=== PATIENT | female | born 1955 | race American Indian/Alaskan Native ===

== ENCOUNTER 2016-08-28 06:46 | Inpatient (IN) | payer MEDICARE, OTHER ==
[2016-08-28] MEDS ORDERED: Sodium Chloride 0.9% 2,000 ML IV STA (07:25)
--- NOTE | 2016-08-28 07:27 | ED PDOC ---
Arrival/HPI - General Chief Complaint: Weakness/Neurological Deficit Time Seen by Provider: 08/28/16 07:08 Historian: Patient - History of Present Illness Narrative History of Present Illness (Text): 08/28/16 07:23 61 year old female with a past medical history that includes diabetes, hypertension, and CVA presents to the emergency department with altered mental status. Patient is alert and oriented to person to place but not to time. Currently no family members are at bedside. Patient is unable to provide further history. Past Medical History - Provider Review Nursing Documentation Reviewed: Yes - Infectious Disease Hx of Infectious Diseases: None - Cardiac Hx Hypertension: Yes - Neurological HX Cerebrovascular Accident: Yes Hx Migraine: Yes - Endocrine/Metabolic Hx Diabetes Mellitus Type 2: Yes - Hematological/Oncological Hx Blood Disorders: No - Integumentary Hx Dermatological Disorder: No - Musculoskeletal/Rheumatological Hx Arthritis: Yes - Gastrointestinal Hx Gastrointestinal Disorders: No - Genitourinary/Gynecological Hx Genitourinary Disorders: No - Psychiatric Hx Psychophysiologic Disorder: Yes Hx Substance Use: No Other/Comment: PREVOUSLY ON STELAZINE - Surgical History Hx Cholecystectomy: Yes Hx Eye Surgery: Yes Hx Hysterectomy: Yes Hx Orthopedic Surgery: Yes (NECK, L LEG) - Anesthesia Hx Anesthesia: Yes Family/Social History - Physician Review Nursing Documentation Reviewed: Yes Family/Social History: Unknown Family HX Smoking Status: Never Smoked Hx Alcohol Use: No Hx Substance Use: No Allergies/Home Meds Allergies/Adverse Reactions: Allergies aspirin Allergy (Verified 09/30/15 18:49) SWELLING diphenhydramine HCl [From Benadryl] Allergy (Verified 09/30/15 18:49) DIZZINESS NSAIDS (Non-Steroidal Anti-Inflamma Allergy (Verified 09/30/15 18:50) SWELLING trifluoperazine Allergy (Verified 09/30/15 18:50) DIZZINESS Home Medications: Home Meds Medication Instructions Recorded Confirmed Amitriptyline [Elavil] 25 mg PO HS 03/27/15 09/30/15 Carvedilol [Coreg] 25 mg PO BID 03/27/15 09/30/15 Clopidogrel [Plavix] 75 mg PO DAILY 03/27/15 09/30/15 Gabapentin [Gabapentin] 100 mg PO TID 03/27/15 09/30/15 Losartan [Cozaar] 50 mg PO DAILY 03/27/15 09/30/15 Topiramate [Topamax] 150 mg PO HS 03/27/15 09/30/15 Venlafaxine Hydrochloride 75 mg PO TID 03/27/15 09/30/15 [Venlafaxine HCl Xr] Review of Systems - Review of Systems Systems not reviewed;Unavailable: Altered Mental Status Physical Exam Vital Signs Reviewed: Yes Vital Signs Temp Pulse Resp BP Pulse Ox 08/28/16 07:38 102 H 16 131/61 100 08/28/16 06:53 98.9 F 102 H 16 109/77 99 Temperature: Afebrile Blood Pressure: Normal Pulse: Tachycardic Respiratory Rate: Normal Appearance: Positive for: Well-Appearing, Non-Toxic, Comfortable Pain Distress: None Mental Status: Positive for: other (Alert and oroiented x 2) Finger Stick Blood Glucose: 500 - Systems Exam Head: Present: Atraumatic, Normocephalic Pupils: Present: PERRL Extroacular Muscles: Present: EOMI Conjunctiva: Present: Normal Mouth: Present: Dry Neck: Present: Normal Range of Motion Respiratory/Chest: Present: Clear to Auscultation, Good Air Exchange. No: Respiratory Distress, Accessory Muscle Use Cardiovascular: Present: Regular Rate and Rhythm, Normal S1, S2. No: Murmurs Abdomen: Present: Normal Bowel Sounds. No: Tenderness, Distention, Peritoneal Signs Back: Present: Normal Inspection Upper Extremity: Present: Normal Inspection. No: Cyanosis, Edema Lower Extremity: Present: Normal Inspection, Other (following commands and moving all extremities). No: Edema Neurological: Present: GCS=15, CN II-XII Intact, Speech Normal Skin: Present: Warm, Dry, Normal Color. No: Rashes Psychiatric: Present: Alert, Other (Oriented x 1 (person)) Medical Decision Making ED Course and Treatment: Impression: 61 year old female with a past medical history that includes diabetes, hypertension, and CVA presents to the emergency department with altered mental status. Hyperglycemic on arrival. Concerning for dka and IV immediately started. Differential Diagnosis include but are not limited to: DKA vs CVA vs sepsis Plan: -- CT Head, Chest X-ray, EKG ---IVF -- Labs -- Reassess and disposition Prior Visits: Notes and results from previous visits were reviewed. Patient has a history of diabetes, hypertension, and CVA. As per previous note, patient's baseline mental status appears to be alert and oriented x 3. Patient's PMD in [address] Socrates Padilla. Progress Notes: 08/28/16 08:14 Labs resulted and show hyperglycemia and acidosis of 7.07 and gap:25 consistent with DKA. 2L IVF already ordered and additional ordered as well as insulin drip. Spoke to Dr. Matos who accepted patient in ICU and agrees with current mgmt and fluid and insulin. Lactate likely evaluated secondary to DKA. Patient is afebrile with only SIRS criteria mild tachycardia which is likely secondary to DKA. Blood and ucx sent. Spoke to PMD Dr. Crowell who reports that patient has hx of schizophrenia and bipolar. No known history of CHF but will continue to monitor respiratory status due to large fluid requirements. 08/28/16 08:26 CT head shows chronic ischemic changes. Cxray negative. EKG shows NSR at 100bpm with no ST elevation. Dr. Matos evaluated in ED and patient to be transferred to ICU under Dr. Padilla. - Critical Care Critical Care Minutes: 30 minutes Critical Care Time: Excluding Proc Time - Lab Interpretations Lab Results: 08/28/16 07:04 08/28/16 07:04 Lab Results 08/28/16 07:04: WBC 10.5 D, RBC 4.04, Hgb 11.9 L, Hct 35.4 L, MCV 87.6, MCH 29.5, MCHC 33.6, RDW 13.2, Plt Count 249, MPV 9.8, Gran % 80.9 H, Lymph % (Auto ) 14.4 L, [place] % (Auto) 4.3, Eos % (Auto) 0.3 L, Baso % (Auto) 0.1, Gran # 8.46 H, Lymph # 1.5, [place] # 0.5, Eos # 0.0, Baso # 0.01, pO2 61 H, VBG pH 7.07 L*, VBG pCO2 39.0 L, VBG HCO3 11.3 L, VBG Total CO2 12.5 L, VBG O2 Sat (Calc) 89.0 H , VBG Base Excess -18.2 L, VBG Potassium 6.2 H*, Glucose > 750 H*, Lactate 2.7 H , FiO2 21.0, Sodium 127.0 L, Potassium 6.1 H* D, Chloride 91.0 L, Carbon Dioxide 13 L, Anion Gap 31 H, BUN 39 H, Creatinine 1.8 H, Est GFR ( Amer ) 34, Est GFR (Non-Af Amer) 28, Random Glucose 797 H* D, Calcium 9.4, Phosphorus 6.8 H, Magnesium 2.4 H, Total Bilirubin 0.8, AST 32, ALT 11, Alkaline Phosphatase 170 H, Total Creatine Kinase 84, Troponin I < 0.01, Total Protein 8.3, Albumin 4.3, Globulin 4.0, Albumin/Globulin Ratio 1.1, Lipase 44, Venous Blood Potassium 6.2 H*, Alcohol, Quantitative < 10 - RAD Interpretation Radiology Orders: 08/28/16 07:23 HEAD W/O CONTRAST [CT] Stat CHEST PORTABLE [RAD] Stat - Medication Orders Current Medication Orders: Heparin Sodium (Porcine) (Heparin) 5,000 units SC Q12H LELIA PRN Reason: Protocol Sodium Chloride (Sodium Chloride 0.9%) 2,000 mls @ 999 mls/hr IV .Q2H1M STA Stop: 08/28/16 09:25 Last Admin: 08/28/16 07:40 Dose: 999 MLS/HR eMAR Start Stop Document 08/28/16 07:40 OCS (Rec: 08/28/16 07:59 OCS [id number]) Intravenous Solution Start Date 08/28/16 Start Time 07:40 Sodium Chloride (Sodium Chloride 0.9%) 1,000 mls @ 999 mls/hr IV .Q1H1M STA Stop: 08/28/16 09:24 Last Admin: 08/28/16 08:30 Dose: 999 MLS/HR eMAR Start Stop Document 08/28/16 08:30 OCS (Rec: 08/28/16 09:02 OCS [id number]) Intravenous Solution Start Date 08/28/16 Start Time 08:30 Insulin Human Regular 100 (units/ Sodium Chloride) 100 mls @ 6 mls/hr IV .[id number] PRN; Protocol; 6 UNITS/HR PRN Reason: TITRATE PER PROTOCOL Sodium Chloride (Sodium Chloride 0.9%) 1,000 mls @ 200 mls/hr IV .Q5H LELIA Pantoprazole Sodium (Protonix Inj) 40 mg IVP DAILY LELIA Discontinued Medications Insulin Human Regular 100 (units/ Sodium Chloride) 100 mls @ 6 mls/hr IV .[id number] PRN; 6 UNITS/HR PRN Reason: TITRATE PER PROTOCOL - Scribe Statement The provider has reviewed the documentation as recorded by the Denis Tripp Provider Scribe Attestation: All medical record entries made by the Scribe were at my direction and personally dictated by me. I have reviewed the chart and agree that the record accurately reflects my personal performance of the history, physical exam, medical decision making, and the department course for this patient. I have also personally directed, reviewed, and agree with the discharge instructions and disposition. Disposition/Present on Arrival - Present on Arrival Any Indicators Present on Arrival: No History of DVT/PE: No History of Uncontrolled Diabetes: No Urinary Catheter: No History of Decub. Ulcer: No History Surgical Site Infection Following: None - Disposition Have Diagnosis and Disposition been Completed?: Yes Diagnosis: DKA (diabetic ketoacidoses) Disposition: HOSPITALIZED Disposition Time: 08:21 Patient Plan: Admission Patient Problems: Current Active Problems Problem Status Diagnosed DKA (diabetic ketoacidoses) Acute Condition: CRITICAL
[2016-08-28 08:01] LABS: ADD MANUAL DIFF? NO
[2016-08-28 08:06] LABS: VENOUS BLOOD GAS BASE EXCESS -18.2 mmol/L (0.0-2.0)
[2016-08-28 08:08] LABS: VENOUS BLOOD PH 7.07 (7.32-7.43)
[2016-08-28 08:09] LABS: BASO # 0.01 K/mm3 (0.0-2.0); BASO % 0.1 % (0.0-3.0); EOS % 0.3 % (1.5-5.0); GRAN # 8.46 (1.4-6.5); GRAN % 80.9 % (50.0-68.0); HEMATOCRIT 35.4 % (36.0-48.0); LYMPH # 1.5 (1.2-3.4); LYMPH % 14.4 % (22.0-35.0); MEAN CELL VOLUME 87.6 fL (80.0-105.0); MEAN CORPUSCULAR HEMOGLOBIN 29.5 pg (25.0-35.0); MEAN CORPUSCULAR HGB CONC 33.6 g/dl (31.0-37.0); MEAN PLATELET VOLUME 9.8 fl (7.0-11.0); MONO # 0.5 (0.1-0.6); MONO % 4.3 % (1.0-6.0); PLATELET COUNT 249 10^3/uL (120.0-450.0); RED CELL DISTRIBUTION WIDTH 13.2 % (11.5-14.5); WHITE BLOOD COUNT 10.5 10^3/ul (4.5-11.0)
[2016-08-28] MEDS ORDERED: Insulin Regular 100 UNITS in Sodium Chloride 0.9% 99 ML IV PRN ×3 (08:12→14:28)
--- NOTE | 2016-08-28 08:19 | CT ---
PROCEDURE: CT HEAD WITHOUT CONTRAST. HISTORY: altered COMPARISON: None available. TECHNIQUE: Axial computed tomography images were obtained through the head/brain without intravenous contrast. Radiation dose: Total exam DLP = 688.20 mGy-cm. FINDINGS: HEMORRHAGE: No intracranial hemorrhage. BRAIN: No mass effect or edema. Mild periventricular white matter lucency consistent with microvascular white matter ischemic change. No significant atrophy. . No evidence of acute infarct. VENTRICLES: Unremarkable. No hydrocephalus. CALVARIUM: Unremarkable. PARANASAL SINUSES: Mild chronic ethmoid and maxillary sinusitis. MASTOID AIR CELLS: Unremarkable as visualized. No inflammatory changes. OTHER FINDINGS: None. IMPRESSION: No intracranial mass, hemorrhage or evidence of acute infarct. Periventricular microvascular white matter ischemic change. Chronic ethmoid and sphenoid sinusitis.
[2016-08-28] MEDS ORDERED: Sodium Chloride 0.9% 1,000 ML IV STA (08:24)
[2016-08-28 08:25] LABS: ALB/GLOB RATIO 1.1 (1.1-1.8); ALKALINE PHOSPHATASE 170 U/L (38-133); ALT/SGPT 11 U/L (7-56); AST/SGOT 32 U/L (15-39); BILIRUBIN,TOTAL 0.8 mg/dL (0.2-1.3); BLOOD UREA NITROGEN 39 mg/dL (7-21); CALCIUM 9.4 mg/dL (8.4-10.5); CARBON DIOXIDE 13 mmol/L (21-33); CHLORIDE 89 mmol/L (98-107); GFR AFRICAN-AMERICAN 34; LIPASE 44 U/L (23-300); MAGNESIUM 2.4 mg/dL (1.7-2.2); PHOSPHOROUS 6.8 mg/dL (2.5-4.5); SODIUM 127 mmol/L (132-148); TOTAL PROTEIN 8.3 g/dL (5.8-8.3)
[2016-08-28 08:33] LABS: TROPONIN I < 0.01 ng/mL
[2016-08-28 08:35] LABS: GLUCOSE,RANDOM 797 mg/dL (70-110)
[2016-08-28 08:36] LABS: POTASSIUM 6.1 mmol/L (3.6-5.0)
--- NOTE | 2016-08-28 08:50 | CP.CCUPN ---
CCU Subjective - Physician Review Events Since Last Encounter (Free Text): 08/28/16 08:46 61yo female pt presented to ED with altered mental status. Pt seen and examined at bedside. Pt is alert but lethargic and oriented x1. Pt unable to provide any HPI or ROS. Pt is hemodynamically stable and saturating well on NC in NAD. PMH: CVA, DM, HTN, bipolar CCU Objective - Vital Signs / Intake & Output Vital Signs (Last 4 hours): Vital Signs Temp Pulse Resp BP Pulse Ox 08/28/16 07:38 102 H 16 131/61 100 08/28/16 06:53 98.9 F 102 H 16 109/77 99 Intake and Output (Last 8hrs): Intake & Output 08/27/16 08/28/16 08/28/16 22:59 06:59 14:59 Weight 200 lb - Physical Exam Head: Positive for: Atraumatic, Normocephalic Conjunctiva: Positive for: Normal Mouth: Positive for: Moist Mucous Membranes Respiratory/Chest: Positive for: Clear to Auscultation, Good Air Exchange. Negative for: Respiratory Distress, Accessory Muscle Use Cardiovascular: Positive for: Regular Rate and Rhythm, Normal S1, S2. Negative for: Murmurs Abdomen: Positive for: Normal Bowel Sounds. Negative for: Tenderness, Distention, Peritoneal Signs Upper Extremity: Positive for: Normal Inspection. Negative for: Cyanosis, Edema Lower Extremity: Positive for: Normal Inspection. Negative for: Edema Neurological: Positive for: GCS=15, CN II-XII Intact, Speech Normal Skin: Positive for: Warm, Dry, Normal Color. Negative for: Rashes Psychiatric: Positive for: Alert, Normal Concentration, Lethargic. Negative for : Oriented x 3, Normal Insight - Medications Active Medications: Active Medications Generic Name Dose Route Start Last Admin Trade Name Freq PRN Reason Stop Dose Admin Sodium Chloride 2,000 mls @ 999 mls/hr 08/28/16 07:25 08/28/16 07:40 Sodium Chloride 0.9% IV 08/28/16 09:25 999 mls/hr .Q2H1M STA Administration Insulin Human Regular 100 100 mls @ 6 mls/hr 08/28/16 08:12 units/ Sodium Chloride IV .[id number] PRN TITRATE PER PROTOCOL 6 UNITS/HR Sodium Chloride 1,000 mls @ 999 mls/hr 08/28/16 08:24 Sodium Chloride 0.9% IV 08/28/16 09:24 .Q1H1M STA - Patient Studies Lab Studies: Lab Studies 08/28/16 Range/Units 07:04 WBC 10.5 D (4.5-11.0) 10^3/ul RBC 4.04 (3.5-6.1) 10^6/uL Hgb 11.9 L (12.0-16.0) gm/dL Hct 35.4 L (36.0-48.0) % MCV 87.6 (80.0-105.0) fL MCH 29.5 (25.0-35.0) pg MCHC 33.6 (31.0-37.0) g/dl RDW 13.2 (11.5-14.5) % Plt Count 249 (120.0-450.0) 10^3/uL MPV 9.8 (7.0-11.0) fl Gran % 80.9 H (50.0-68.0) % Lymph % (Auto) 14.4 L (22.0-35.0) % [place] % (Auto) 4.3 (1.0-6.0) % Eos % (Auto) 0.3 L (1.5-5.0) % Baso % (Auto) 0.1 (0.0-3.0) % Gran # 8.46 H (1.4-6.5) Lymph # 1.5 (1.2-3.4) [place] # 0.5 (0.1-0.6) Eos # 0.0 (0.0-0.7) Baso # 0.01 (0.0-2.0) K/mm3 pO2 61 H (30-55) mm/Hg VBG pH 7.07 L* (7.32-7.43) VBG pCO2 39.0 L (40-60) VBG HCO3 11.3 L (21-28) mmol/l VBG Total CO2 12.5 L (22-28) mmol.L VBG O2 Sat (Calc) 89.0 H (40-65) % VBG Base Excess -18.2 L (0.0-2.0) mmol/L VBG Potassium 6.2 H* (3.6-5.2) mmol/L Glucose > 750 H* (65-105) mg/dl Lactate 2.7 H (0.7-2.1) mmol/L FiO2 21.0 % Sodium 127.0 L (132-148) mmol/L Potassium 6.1 H* D (3.6-5.0) mmol/L Chloride 91.0 L (98-107) mmol/L Carbon Dioxide 13 L (21-33) mmol/L Anion Gap 31 H (10-20) BUN 39 H (7-21) mg/dL Creatinine 1.8 H (0.5-1.4) mg/dL Est GFR ( Amer) 34 Est GFR (Non-Af Amer) 28 Random Glucose 797 H* D (70-110) mg/dL Calcium 9.4 (8.4-10.5) mg/dL Phosphorus 6.8 H (2.5-4.5) mg/dL Magnesium 2.4 H (1.7-2.2) mg/dL Total Bilirubin 0.8 (0.2-1.3) mg/dL AST 32 (15-39) U/L ALT 11 (7-56) U/L Alkaline Phosphatase 170 H (38-133) U/L Total Creatine Kinase 84 (35-230) U/L Troponin I < 0.01 ng/mL Total Protein 8.3 (5.8-8.3) g/dL Albumin 4.3 (3.0-4.8) g/dL Globulin 4.0 gm/dL Albumin/Globulin Ratio 1.1 (1.1-1.8) Lipase 44 (23-300) U/L Venous Blood Potassium 6.2 H* (3.6-5.2) mmol/L Alcohol, Quantitative < 10 (0-10) mg/dL Laboratory Results - last 24 hr 08/28/16 07:04 WBC 10.5 D RBC 4.04 Hgb 11.9 L Hct 35.4 L MCV 87.6 MCH 29.5 MCHC 33.6 RDW 13.2 Plt Count 249 MPV 9.8 Gran % 80.9 H Lymph % (Auto) 14.4 L [place] % (Auto) 4.3 Eos % (Auto) 0.3 L Baso % (Auto) 0.1 Gran # 8.46 H Lymph # 1.5 [place] # 0.5 Eos # 0.0 Baso # 0.01 pO2 61 H VBG pH 7.07 L* VBG pCO2 39.0 L VBG HCO3 11.3 L VBG Total CO2 12.5 L VBG O2 Sat (Calc) 89.0 H VBG Base Excess -18.2 L VBG Potassium 6.2 H* Sodium 127 L Chloride 89 L Glucose > 750 H* Lactate 2.7 H FiO2 21.0 Potassium 6.1 H* D Carbon Dioxide 13 L Anion Gap 31 H BUN 39 H Creatinine 1.8 H Est GFR ( Amer) 34 Est GFR (Non-Af Amer) 28 Random Glucose 797 H* D Calcium 9.4 Phosphorus 6.8 H Magnesium 2.4 H Total Bilirubin 0.8 AST 32 ALT 11 Alkaline Phosphatase 170 H Total Creatine Kinase 84 Troponin I < 0.01 Total Protein 8.3 Albumin 4.3 Globulin 4.0 Albumin/Globulin Ratio 1.1 Lipase 44 Venous Blood Potassium 6.2 H* Alcohol, Quantitative < 10 EKG/Cardiology Studies: Cardiology / EKG Studies 08/28/16 07:34 EKG [ELECTROCARDIOGRAM] Stat Comment: Reason For Exam: AMS Fingerstick Blood Sugar Results: 500 Review of Systems - Review of Systems Systems not reviewed;Unavailable: Acuity of Condition Critical Care Progress Note - Ventilator Checklist Head of Bed 30 Degrees: Yes PUD Prophalyxis: Yes DVT Prophylaxis: Yes Assessment/Plan - Assessment and Plan (Free Text) Plan: DKA \ YOGESH \ Bipolar -hemodynamic monitoring to maintain MAP>65; currently stable -f\u ECho to assess baseline LV function -o2 supplementation to maintain Spo2>90 Pao2>60; currently comfortable on NC -CXR reviewed , and shows no visible opacification -f\u Bun\Cr and U\o; continue IVF with NS -f\u renal US -f\u U\A and urine culture -continue Insulin drip as per protocol and BGM q1h -monitor CH7 for Anion gap q4hrs -monitor and e-lites -NPO diet and aspiration precautions -f\u HbA1c -consider endocrine eval -psych team eval once pt is clinically improved -DVT prophylaxis DW ED team CCM eval time 40min
[2016-08-28] MEDS ORDERED: Sodium Chloride 0.9% 1,000 ML IV SCH (09:00)
--- NOTE | 2016-08-28 09:20 | RAD ---
HISTORY: altered COMPARISON: 03/27/2015 FINDINGS: LUNGS: No active pulmonary disease. PLEURA: No significant pleural effusion identified, no pneumothorax apparent. CARDIOVASCULAR: Normal. OSSEOUS STRUCTURES: No significant abnormalities. VISUALIZED UPPER ABDOMEN: Normal. OTHER FINDINGS: None. IMPRESSION: No active disease.
[2016-08-28 09:26] LABS: URINE BILIRUBIN NEGATIVE (NEGATIVE); URINE BLOOD TRACE-LYSED (NEGATIVE); URINE GLUCOSE (UA) >=1000 mg/dL (NEGATIVE); URINE KETONE 40 mg/dL (NEGATIVE); URINE LEUKOCYTE ESTERASE NEGATIVE Leu/uL (NEGATIVE); URINE PROTEIN NEGATIVE mg/dL (<30 mg/dL); URINE UROBILINOGEN 0.2 E.U./dL (<1 E.U./dL)
[2016-08-28 09:28] LABS: URINE APPEARANCE CLEAR (CLEAR); URINE COLOR YELLOW (YELLOW)
[2016-08-28 09:42] LABS: URINE BACTERIA NEG (NEG); URINE EPITHELIAL CELLS 0 - 2 /hpf (0-5); URINE RBC NEGATIVE /hpf (0-2); URINE WBC NEGATIVE /hpf (0-6)
--- NOTE | 2016-08-28 09:56 | US ---
PROCEDURE: Ultrasound of the Kidneys HISTORY: YOGESH COMPARISON: None available. TECHNIQUE: Sonogram of the kidneys. Limited examination. Patient unable to cooperate with respiratory instructions. FINDINGS: RIGHT KIDNEY: Measures: 9.9 cm. Normal in size, contour and echogenicity. No stone, solid mass lesion or hydronephrosis visualized. LEFT KIDNEY: Measures: 9.8 cm. Normal in size, contour and echogenicity. No stone, solid mass lesion or hydronephrosis visualized. OTHER FINDINGS: None. IMPRESSION: Unremarkable renal sonogram.
--- NOTE | 2016-08-28 10:31 | CARD ---
APPROVED REPORT EKG Measurement Heart [id number] <Conclusion> Normal sinus rhythm ST elevation V 1 - 3, new Artifact present Suggest clinical correlation.
--- NOTE | 2016-08-28 10:37 | HP ---
HISTORY OF PRESENT ILLNESS: The patient is a 61-year-old female with a history of type 1 diabetes wh o presents to the Emergency Room in diabetic ketoacidosis. 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 PAST SURGICAL HISTORY: Includes back surgery in 1983, status post lumbar laminectomy and fusion. Th e patient has a history of cholecystectomy and total abdominal hysterectomy and bilateral salpingo-oo phorectomy. ALLERGIES: INCLUDE ASPIRIN, BENADRYL, STELAZINE AND CORTISONE. CURRENT MEDICATIONS: Include Neurontin 100 mg 3 times daily, losartan 50 mg daily, Coreg 25 mg twice daily, venlafaxine ER 75 mg 3 times daily, Plavix 75 mg daily and Topamax 100 mg q. a.m. and 150 mg q. p.m. as well as Lantus 45 units q. daily, and Humalog with meals. SOCIAL HISTORY: The patient has no history of tobacco, alcohol or drug use. She has a history of po ssible bipolar disorder in the past. She is being followed as an outpatient by endocrinology, Dr. Ankit polk. PHYSICAL EXAMINATION: GENERAL: The patient is a well-developed female, somewhat confused, in no acute distress. VITAL SIGNS: Blood pressure 131/61, pulse 102, temperature 98.9, respiratory rate 16. HEENT: Head is normocephalic, atraumatic. Pupils equal, round, reactive, extraocular movements inta ct. NECK: Supple with no nuchal rigidity. LUNGS: Clear. HEART: Regular rate and rhythm. ABDOMEN: Soft, nontender. Bowel sounds are normoactive. EXTREMITIES: Without cyanosis, clubbing, or edema. NEUROLOGIC: The patient is awake and confused without focal sensory or motor deficits. SKIN: Warm and dry. LABORATORY DATA: WBC is 10.5, hemoglobin 11.9, hematocrit 35.4. Sodium 127, potassium 6.1, chloride 89, CO2 13, BUN 39, creatinine 1.8, glucose 797. Arterial blood gas shows a pH of 7.07, pCO2 of 39, pO2 of 61, bicarb 11.3, oxygen saturation 89%. Renal ultrasound was performed which was negative fo r obstruction. CT scan of the head shows no bleeds or infarcts, is positive for chronic sinusitis. IMPRESSION: 1. Diabetic ketoacidosis. 2. Chronic obstructive pulmonary disease. 3. Hypertension. PLAN: The patient is admitted to the intensive care unit. She is currently receiving IV insulin as well as IV fluids. Prognosis is guarded. Socrates Padilla JD, MD cc: [id number] TT: 08/28/2016 10:36:20 tn
[2016-08-28 10:38] LABS: CALCIUM 8.9 mg/dL (8.4-10.5); POTASSIUM 5.5 mmol/L (3.6-5.0); VENOUS BLOOD PH 7.06 (7.32-7.43)
[2016-08-28 11:25] VITALS: BMI 39.1
[2016-08-28 14:16] LABS: CALCIUM 8.7 mg/dL (8.4-10.5); POTASSIUM 4.5 mmol/L (3.6-5.0)
--- NOTE | 2016-08-28 15:23 | CON ---
DATE: 08/28/2016 CCU 128, room 2. This is a 61-year-old female with known history of type 2 diabetes on oral hypoglycemic therapy, who presents here with generalized body weakness and altered mental status, and is now being referred for diabetic evaluation and management. PAST MEDICAL HISTORY: As mentioned above, history of type 2 diabetes on some kind of oral hypoglycem ic therapy. The exact name is not known at this time. History of hypertension and dyslipidemia, his tory of bipolar disorder on psychotropic medications. FAMILY HISTORY: Positive for hypertension and diabetes. SOCIAL HISTORY: The patient has supportive family. No known substance use. REVIEW OF SYSTEMS: Not possible at this time, but as per the family, has had increasing bouts of gen eralized body weakness, hypersomnolence, and lethargy over the last few days prior to admission. She also had episodic bouts of dizziness and light-headedness, worse on the day of admission. No chest pains, or palpitations, or PNDs. Her oral intake has been variable and suboptimal, with nausea, dysp epsia, and episodic vomiting episodes. Also was noted to have increasing polyuria, nocturia, and even urinary incontinence on the day of admission. PHYSICAL EXAMINATION: This is an obese female in no apparent distress with a blood pressure of 150/90, pulse of 100 beats p er minute regular, temperature 98, respirations 20. Height is 5 feet 3 inches, weight is 221 pounds. HENT: Head normocephalic. Eyes anicteric with pink conjunctivae. Fundoscopy not possible at this t francine. Ears, nose and throat otherwise normal. NECK: Supple. Thyroid gland is normal size. No carotid bruits or any cervical adenopathy. CARDIOPULMONARY: Some adynamic precordium. S1, S2 is rapid and regular. LUNGS: Clear to auscultation. ABDOMEN: Obese, soft, with positive bowel sounds. EXTREMITIES: No peripheral edema. Pulses are +2 bilaterally. LABORATORIES: Chemistry showed a BUN of 39, sodium 127, potassium 6.1, chloride 89, CO2 is 13, gluco se is 797, and creatinine is 1.8. ASSESSMENT: This is a 61-year-old female with uncontrolled and decompensated type 2 insulin-requirin g diabetes presenting here with diabetic ketoacidosis, and clinical and biochemical evidence of dehyd ration, prerenal azotemia, spurious hyponatremia, and hyperkalemia as noted thereof. PLAN OF MANAGEMENT: As discussed with the staff, will concur with the present medical management of the ongoing insulin drip infusion as part of the intensive insulin therapy as initiated. Will also o btain serial chemistries and supplement accordingly as needed. Should expect at least a CO2 to be ab ove 18 to discontinue the insulin drip infusion. Will continue the vigorous IV hydration with normal saline given to 200 mL per hour as ordered. A hemoglobin A1c will be done to confirm her prior glyc emic control, and baseline thyroid function studies and lipid panel will be ordered. Once she is more awake and responsive, then will initiate diabetic education, and will notify our [facility] educator, Ms. Virginia Isidro, to initiate the aforementioned diabetic education and also to incl ude insulin self-administration techniques. Will also consult our dietitian for nutritional counseli ng and weight loss efforts, especially for healthier food choices as noted. Once she is off the insu bharati drip infusion, then will start her on the basal and bolus insulin drug combination to optimize he r metabolic control thereof. Will even consider oral hypoglycemic therapy as indicated to lower insu bharati resistance thereof. Will follow and advise accordingly. Polly Carrillo MD cc: [id number] TT: 08/28/2016 15:23:09 Confirmation # [id number] Dictation # [id number] thu
[2016-08-28 16:21] LABS: VENOUS BLOOD GAS BASE EXCESS -12.7 mmol/L (0.0-2.0)
[2016-08-28 16:30] LABS: CALCIUM 8.6 mg/dL (8.4-10.5); POTASSIUM 4.5 mmol/L (3.6-5.0)
[2016-08-28] MEDS: Dextrose 5%/0.45% NS 1,000 ML IV SCH (18:10)
[2016-08-28 20:32] LABS: CALCIUM 8.3 mg/dL (8.4-10.5); POTASSIUM 4.2 mmol/L (3.6-5.0)
[2016-08-28] MEDS ORDERED: Insulin Detemir 100 units/ml Vial (Levemir) SC STA (22:50)
[2016-08-29] MEDS: Dextrose 5%/0.45% NS 1,000 ML IV SCH (02:12)
[2016-08-29] MEDS ORDERED: Insulin Lispro 1 UNITS/0.01 ML SC STA ×2 (03:18→06:09)
[2016-08-29 05:21] LABS: HEMATOCRIT 34.2 % (36.0-48.0); MEAN CELL VOLUME 85.5 fL (80.0-105.0); MEAN CORPUSCULAR HEMOGLOBIN 29.5 pg (25.0-35.0); MEAN CORPUSCULAR HGB CONC 34.5 g/dl (31.0-37.0); MEAN PLATELET VOLUME 9.1 fl (7.0-11.0); RED CELL DISTRIBUTION WIDTH 13.3 % (11.5-14.5); WHITE BLOOD COUNT 11.9 10^3/ul (4.5-11.0)
[2016-08-29 05:43] LABS: ALB/GLOB RATIO 0.9 (1.1-1.8); ALKALINE PHOSPHATASE 128 U/L (38-133); ALT/SGPT 16 U/L (7-56); AST/SGOT 26 U/L (15-39); BILIRUBIN,TOTAL 0.6 mg/dL (0.2-1.3); BLOOD UREA NITROGEN 24 mg/dL (7-21); CALCIUM 8.3 mg/dL (8.4-10.5); CARBON DIOXIDE 21 mmol/L (21-33); CHLORIDE 101 mmol/L (98-107); CHOLESTEROL 150 mg/dL (130-200); GFR AFRICAN-AMERICAN > 60; LIPASE 34 U/L (23-300); MAGNESIUM 2.2 mg/dL (1.7-2.2); PHOSPHOROUS 2.5 mg/dL (2.5-4.5); POTASSIUM 4.7 mmol/L (3.6-5.0); SODIUM 134 mmol/L (132-148); TOTAL PROTEIN 7.3 g/dL (5.8-8.3)
[2016-08-29 05:59] LABS: GLUCOSE,RANDOM 407 mg/dL (70-110)
[2016-08-29 06:57] LABS: T4 6.6 ug/dL (5.5-11.0)
[2016-08-29 07:00] LABS: BLOOD UREA NITROGEN 23 mg/dL (7-21); CALCIUM 8.3 mg/dL (8.4-10.5); CARBON DIOXIDE 18 mmol/L (21-33); CHLORIDE 104 mmol/L (98-107); GFR AFRICAN-AMERICAN > 60; POTASSIUM 4.8 mmol/L (3.6-5.0); SODIUM 137 mmol/L (132-148)
[2016-08-29 07:07] LABS: GLUCOSE,RANDOM 431 mg/dL (70-110)
[2016-08-29 07:11] LABS: THYROID STIMULATING HORMONE 0.99 mIU/mL (0.46-4.68)
[2016-08-29] MEDS ORDERED: Insulin Regular 100 UNITS in Sodium Chloride 0.9% 99 ML IV PRN (07:14)
[2016-08-29] MEDS ORDERED: Dextrose 5%/0.45% NS 1,000 ML IV SCH (07:30)
--- NOTE | 2016-08-29 09:43 | CARD ---
APPROVED REPORT EXAM: Two-dimensional and M-mode echocardiogram with Doppler and color Doppler. Other Information Quality : FairRhythm : INDICATION LV Function:SystolicDiastolic 2D DIMENSIONS Left Atrium (2D)3.0 (1.6-4.0cm)IVSd1.3 (0.7-1.1cm) LVDd2.9 (3.9-5.9cm)PWd1.3 (0.7-1.1cm) LVDs1.8 (2.5-4.0cm)FS (%) 39.2 % LVEF (%)71.0 (>50%) M-Mode DIMENSIONS Aortic Root2.70 (2.2-3.7cm)Aortic Cusp Exc.1.20 (1.5-2.0cm) Aortic Valve AoV Peak Ypfvdsoh962.0cm/Lisset Peak GR.13mmHg Mitral Valve MV E Iafqicvo75.5cm/sMV A Aenxjooh464.0cm/sE/A ratio0.6 TDI E/Lateral E'0.0E/Medial E'0.0 Tricuspid Valve TR Peak [id number]/sRAP [id number] Peak Gr.18mmHg [id number] LEFT VENTRICLE The left ventricle is normal size. There is mild concentric left ventricular hypertrophy. The left ventricular function is normal. The left ventricular ejection fraction is within the normal range. There is normal LV segmental wall motion. RIGHT VENTRICLE The right ventricle is normal size. ATRIA The left atrium is mildly dilated. The right atrium size is normal. AORTIC VALVE The aortic valve is mildly calcified. MITRAL VALVE The mitral valve is moderately thickened but opens well. Mitral annular calcification is moderate. TRICUSPID VALVE The tricuspid valve is not well visualized. There is trace to mild tricuspid regurgitation. PULMONIC VALVE The pulmonic valve is not well visualized. GREAT VESSELS The aortic root is normal in size. PERICARDIAL EFFUSION There is no pericardial effusion. <Conclusion> Limited study. The left ventricle is normal size. There is mild concentric left ventricular hypertrophy. The left ventricular function is normal.
[2016-08-29] MEDS: Insulin Lispro (humaLOG) LOW Coverage SC SCH ×4 (09:46→22:04)
[2016-08-29] MEDS: Insulin Lispro 1 UNITS/0.01 ML SC SCH ×3 (09:47→17:35)
[2016-08-29 11:31] LABS: BLOOD UREA NITROGEN 19 mg/dL (7-21); CALCIUM 8.3 mg/dL (8.4-10.5); CARBON DIOXIDE 23 mmol/L (21-33); CHLORIDE 104 mmol/L (95-110); GFR AFRICAN-AMERICAN > 60; SODIUM 136 mmol/L (132-148)
[2016-08-29 11:39] LABS: GLUCOSE,RANDOM 356 mg/dL (70-110)
--- NOTE | 2016-08-29 11:44 | PN ---
DATE: 08/29/2016 SUBJECTIVE: The patient is lying in bed in no acute distress. There is no chest pain, no shortness of breath. OBJECTIVE: VITAL SIGNS: Blood pressure 130/80, temperature 99.5, pulse 89, respiratory rate 17, temperature 99. 5. LUNGS: Clear. HEART: Regular rate and rhythm. ABDOMEN: Soft, nontender, bowel sounds are normoactive. EXTREMITIES: Without cyanosis, clubbing, or edema. NEUROLOGIC: The patient is awake and alert without focal sensory or motor deficits. SKIN: Warm and dry. LABORATORY DATA: WBCs 11.9, hemoglobin 11.8, hematocrit 34.2. Sodium 137, potassium 4.8, chloride 1 04, CO2 18, BUN 23, creatinine 1.0. Glucose 431. Urine and blood cultures and sensitivity are negat cesar after 24 hours. IMPRESSION: 1. Diabetic ketoacidosis/dehydration. 2. Chronic obstructive pulmonary disease. 3. Hypertension. PLAN: Continue monitoring in the intensive care unit, IV insulin and vigorous IV hydration. Endocri nology consult (Dr. Carrillo) appreciated. Social work for discharge planning. Socrates Padilla JD, MD cc: [id number] TT: 08/29/2016 11:44:07 Confirmation # [id number] Dictation # [id number]
--- NOTE | 2016-08-29 11:45 | CP.CCUPN ---
<January Carty - Last Filed: 08/29/16 15:41> CCU Subjective - Physician Review Events Since Last Encounter (Free Text): 08/29/16 15:41 Patient seen and examined bedside. Patient AAO x2 (self and place, not time). Still slightly lethargic but easily arousable. Denies CP, SOB, abd pain, n/v, fevers, chills. Critical Care Time Spent (in minutes): 30 CCU Objective - Vital Signs / Intake & Output Intake and Output (Last 8hrs): Intake & Output 08/28/16 08/29/16 08/29/16 22:59 06:59 14:59 Intake Total 1500 611 Output Total 1750 770 Balance -250 -159 Intake: IV 1500 611 Right Hand 1500 611 Output: Urine 1750 750 Urethral (Higgins) 1750 750 Emesis 20 Other: Voiding Method Indwelling Catheter - Physical Exam Head: Positive for: Atraumatic, Normocephalic Pupils: Positive for: PERRL Extroacular Muscles: Positive for: EOMI Conjunctiva: Positive for: Normal Mouth: Positive for: Dry Neck: Positive for: Normal Range of Motion Respiratory/Chest: Positive for: Clear to Auscultation, Good Air Exchange. Negative for: Respiratory Distress, Accessory Muscle Use Cardiovascular: Positive for: Regular Rate and Rhythm, Normal S1, S2. Negative for: Murmurs Abdomen: Positive for: Normal Bowel Sounds. Negative for: Tenderness, Distention, Peritoneal Signs Back: Positive for: Normal Inspection Upper Extremity: Positive for: Normal Inspection. Negative for: Cyanosis, Edema Lower Extremity: Positive for: Normal Inspection, Other (following commands and moving all extremities). Negative for: Edema Neurological: Positive for: GCS=15, CN II-XII Intact, Speech Normal Skin: Positive for: Warm, Dry, Normal Color. Negative for: Rashes Psychiatric: Positive for: Alert, Other (Oriented x 1 (person)) - Medications Active Medications: Active Medications Generic Name Dose Route Start Last Admin Trade Name Freq PRN Reason Stop Dose Admin Heparin Sodium (Porcine) 5,000 units 08/28/16 09:00 08/29/16 11:00 Heparin SC 5,000 units Q12H LELIA Administration Protocol Insulin Human Regular 100 100 mls @ 0 mls/hr 08/29/16 07:14 units/ Sodium Chloride IV .Q0M PRN TITRATE PER MD ORDER Protocol Per Protocol Dextrose/Sodium Chloride 1,000 mls @ 100 mls/hr 08/29/16 07:30 Dextrose 5%/0.45% Ns 1000 Ml IV .Q10H LELIA Insulin Detemir 20 unit 08/29/16 22:00 Levemir SC HS LELIA Insulin Human Lispro 0 units 08/29/16 07:30 08/29/16 09:46 Humalog Low SC Not Given ACHS [facility] Protocol Insulin Human Lispro 8 units 08/29/16 07:30 08/29/16 09:47 Humalog SC 8 units AC LELIA Administration Ondansetron HCl 4 mg 08/28/16 19:28 Zofran Inj IVP Q6H PRN Nausea/Vomiting Pantoprazole Sodium 40 mg 08/28/16 10:00 08/29/16 11:00 Protonix Inj IVP 40 mg DAILY LELIA Administration - Patient Studies Lab Studies: Microbiology Studies 08/28/16 08:54 Blood Culture - Preliminary Blood NO GROWTH AFTER 24 HOURS 08/28/16 08:31 Blood Culture - Preliminary Blood NO GROWTH AFTER 24 HOURS 08/28/16 09:00 Urine Culture - Final Urine No Growth (<1,000 CFU/ML) Lab Studies 08/29/16 08/29/16 08/29/16 Range/Units 11:00 06:36 05:00 WBC 11.9 H (4.5-11.0) 10^3/ul RBC 4.00 (3.5-6.1) 10^6/uL Hgb 11.8 L (12.0-16.0) gm/dL Hct 34.2 L (36.0-48.0) % MCV 85.5 (80.0-105.0) fL MCH 29.5 (25.0-35.0) pg MCHC 34.5 (31.0-37.0) g/dl RDW 13.3 (11.5-14.5) % Plt Count 208 (120.0-450.0) 10^3/uL MPV 9.1 (7.0-11.0) fl pO2 (30-55) mm/Hg VBG pH (7.32-7.43) VBG pCO2 (40-60) VBG HCO3 (21-28) mmol/l VBG Total CO2 (22-28) mmol.L VBG O2 Sat (Calc) (40-65) % VBG Base Excess (0.0-2.0) mmol/L VBG Potassium (3.6-5.2) mmol/L Glucose (65-105) mg/dl Lactate (0.7-2.1) mmol/L FiO2 % Sodium 136 137 134 (132-148) mmol/L Potassium 4.0 4.8 4.7 (3.6-5.0) mmol/L Chloride 104 104 101 (95-110) mmol/L Carbon Dioxide 23 18 L 21 (21-33) mmol/L Anion Gap 13 20 17 (10-20) BUN 19 23 H 24 H (7-21) mg/dL Creatinine 0.9 1.0 1.0 (0.5-1.4) mg/dL Est GFR ( Amer) > 60 > 60 > 60 Est GFR (Non-Af Amer) > 60 56 56 POC Glucose (mg/dL) (65-110) mg/dL Random Glucose 356 H* 431 H* 407 H* D (70-110) mg/dL Hemoglobin A1c 12.3 H (4.2-6.5) % Calcium 8.3 L 8.3 L 8.3 L (8.4-10.5) mg/dL Phosphorus 2.5 (2.5-4.5) mg/dL Magnesium 2.2 (1.7-2.2) mg/dL Total Bilirubin 0.6 (0.2-1.3) mg/dL AST 26 (15-39) U/L ALT 16 (7-56) U/L Alkaline Phosphatase 128 (38-133) U/L Total Protein 7.3 (5.8-8.3) g/dL Albumin 3.5 (3.0-4.8) g/dL Globulin 3.7 gm/dL Albumin/Globulin Ratio 0.9 L (1.1-1.8) Triglycerides 104 (35-160) mg/dL Cholesterol 150 (130-200) mg/dL LDL Cholesterol Direct 54 (0-129) mg/dL HDL Cholesterol 59 (29-60) mg/dL Lipase 34 (23-300) U/L Thyroxine (T4) 6.6 (5.5-11.0) ug/dL TSH 3rd Generation 0.99 (0.46-4.68) mIU/mL Venous Blood Potassium (3.6-5.2) mmol/L 08/29/16 08/28/16 08/28/16 Range/Units 03:07 23:02 21:59 WBC (4.5-11.0) 10^3/ul RBC (3.5-6.1) 10^6/uL Hgb (12.0-16.0) gm/dL Hct (36.0-48.0) % MCV (80.0-105.0) fL MCH (25.0-35.0) pg MCHC (31.0-37.0) g/dl RDW (11.5-14.5) % Plt Count (120.0-450.0) 10^3/uL MPV (7.0-11.0) fl pO2 (30-55) mm/Hg VBG pH (7.32-7.43) VBG pCO2 (40-60) VBG HCO3 (21-28) mmol/l VBG Total CO2 (22-28) mmol.L VBG O2 Sat (Calc) (40-65) % VBG Base Excess (0.0-2.0) mmol/L VBG Potassium (3.6-5.2) mmol/L Glucose (65-105) mg/dl Lactate (0.7-2.1) mmol/L FiO2 % Sodium (132-148) mmol/L Potassium (3.6-5.0) mmol/L Chloride (95-110) mmol/L Carbon Dioxide (21-33) mmol/L Anion Gap (10-20) BUN (7-21) mg/dL Creatinine (0.5-1.4) mg/dL Est GFR ( Amer) Est GFR (Non-Af Amer) POC Glucose (mg/dL) 323 H 166 H 172 H (65-110) mg/dL Random Glucose (70-110) mg/dL Hemoglobin A1c (4.2-6.5) % Calcium (8.4-10.5) mg/dL Phosphorus (2.5-4.5) mg/dL Magnesium (1.7-2.2) mg/dL Total Bilirubin (0.2-1.3) mg/dL AST (15-39) U/L ALT (7-56) U/L Alkaline Phosphatase (38-133) U/L Total Protein (5.8-8.3) g/dL Albumin (3.0-4.8) g/dL Globulin gm/dL Albumin/Globulin Ratio (1.1-1.8) Triglycerides (35-160) mg/dL Cholesterol (130-200) mg/dL LDL Cholesterol Direct (0-129) mg/dL HDL Cholesterol (29-60) mg/dL Lipase (23-300) U/L Thyroxine (T4) (5.5-11.0) ug/dL TSH 3rd Generation (0.46-4.68) mIU/mL Venous Blood Potassium (3.6-5.2) mmol/L 08/28/16 08/28/16 08/28/16 Range/Units 21:06 20:04 20:00 WBC (4.5-11.0) 10^3/ul RBC (3.5-6.1) 10^6/uL Hgb (12.0-16.0) gm/dL Hct (36.0-48.0) % MCV (80.0-105.0) fL MCH (25.0-35.0) pg MCHC (31.0-37.0) g/dl RDW (11.5-14.5) % Plt Count (120.0-450.0) 10^3/uL MPV (7.0-11.0) fl pO2 (30-55) mm/Hg VBG pH (7.32-7.43) VBG pCO2 (40-60) VBG HCO3 (21-28) mmol/l VBG Total CO2 (22-28) mmol.L VBG O2 Sat (Calc) (40-65) % VBG Base Excess (0.0-2.0) mmol/L VBG Potassium (3.6-5.2) mmol/L Glucose (65-105) mg/dl Lactate (0.7-2.1) mmol/L FiO2 % Sodium 137 (132-148) mmol/L Potassium 4.2 (3.6-5.0) mmol/L Chloride 104 (95-110) mmol/L Carbon Dioxide 22 (21-33) mmol/L Anion Gap 15 (10-20) BUN 31 H (7-21) mg/dL Creatinine 1.2 (0.5-1.4) mg/dL Est GFR ( Amer) 55 Est GFR (Non-Af Amer) 45 POC Glucose (mg/dL) 193 H 208 H (65-110) mg/dL Random Glucose 189 H (70-110) mg/dL Hemoglobin A1c (4.2-6.5) % Calcium 8.3 L (8.4-10.5) mg/dL Phosphorus (2.5-4.5) mg/dL Magnesium (1.7-2.2) mg/dL Total Bilirubin (0.2-1.3) mg/dL AST (15-39) U/L ALT (7-56) U/L Alkaline Phosphatase (38-133) U/L Total Protein (5.8-8.3) g/dL Albumin (3.0-4.8) g/dL Globulin gm/dL Albumin/Globulin Ratio (1.1-1.8) Triglycerides (35-160) mg/dL Cholesterol (130-200) mg/dL LDL Cholesterol Direct (0-129) mg/dL HDL Cholesterol (29-60) mg/dL Lipase (23-300) U/L Thyroxine (T4) (5.5-11.0) ug/dL TSH 3rd Generation (0.46-4.68) mIU/mL Venous Blood Potassium (3.6-5.2) mmol/L 08/28/16 08/28/16 08/28/16 Range/Units 19:08 18:02 17:09 WBC (4.5-11.0) 10^3/ul RBC (3.5-6.1) 10^6/uL Hgb (12.0-16.0) gm/dL Hct (36.0-48.0) % MCV (80.0-105.0) fL MCH (25.0-35.0) pg MCHC (31.0-37.0) g/dl RDW (11.5-14.5) % Plt Count (120.0-450.0) 10^3/uL MPV (7.0-11.0) fl pO2 (30-55) mm/Hg VBG pH (7.32-7.43) VBG pCO2 (40-60) VBG HCO3 (21-28) mmol/l VBG Total CO2 (22-28) mmol.L VBG O2 Sat (Calc) (40-65) % VBG Base Excess (0.0-2.0) mmol/L VBG Potassium (3.6-5.2) mmol/L Glucose (65-105) mg/dl Lactate (0.7-2.1) mmol/L FiO2 % Sodium (132-148) mmol/L Potassium (3.6-5.0) mmol/L Chloride (95-110) mmol/L Carbon Dioxide (21-33) mmol/L Anion Gap (10-20) BUN (7-21) mg/dL Creatinine (0.5-1.4) mg/dL Est GFR ( Amer) Est GFR (Non-Af Amer) POC Glucose (mg/dL) 196 H 205 H 233 H (65-110) mg/dL Random Glucose (70-110) mg/dL Hemoglobin A1c (4.2-6.5) % Calcium (8.4-10.5) mg/dL Phosphorus (2.5-4.5) mg/dL Magnesium (1.7-2.2) mg/dL Total Bilirubin (0.2-1.3) mg/dL AST (15-39) U/L ALT (7-56) U/L Alkaline Phosphatase (38-133) U/L Total Protein (5.8-8.3) g/dL Albumin (3.0-4.8) g/dL Globulin gm/dL Albumin/Globulin Ratio (1.1-1.8) Triglycerides (35-160) mg/dL Cholesterol (130-200) mg/dL LDL Cholesterol Direct (0-129) mg/dL HDL Cholesterol (29-60) mg/dL Lipase (23-300) U/L Thyroxine (T4) (5.5-11.0) ug/dL TSH 3rd Generation (0.46-4.68) mIU/mL Venous Blood Potassium (3.6-5.2) mmol/L 08/28/16 08/28/16 08/28/16 Range/Units 16:17 16:14 15:07 WBC (4.5-11.0) 10^3/ul RBC (3.5-6.1) 10^6/uL Hgb (12.0-16.0) gm/dL Hct (36.0-48.0) % MCV (80.0-105.0) fL MCH (25.0-35.0) pg MCHC (31.0-37.0) g/dl RDW (11.5-14.5) % Plt Count (120.0-450.0) 10^3/uL MPV (7.0-11.0) fl pO2 40 (30-55) mm/Hg VBG pH 7.20 L (7.32-7.43) VBG pCO2 37.0 L (40-60) VBG HCO3 14.5 L (21-28) mmol/l VBG Total CO2 15.6 L (22-28) mmol.L VBG O2 Sat (Calc) 74.8 H (40-65) % VBG Base Excess -12.7 L (0.0-2.0) mmol/L VBG Potassium 4.4 (3.6-5.2) mmol/L Glucose 261 H (65-105) mg/dl Lactate 1.6 (0.7-2.1) mmol/L FiO2 21.0 % Sodium 138.0 (132-148) mmol/L Potassium 4.5 (3.6-5.0) mmol/L Chloride 109.0 H (95-110) mmol/L Carbon Dioxide 16 L (21-33) mmol/L Anion Gap 22 H (10-20) BUN 36 H (7-21) mg/dL Creatinine 1.4 (0.5-1.4) mg/dL Est GFR ( Amer) 46 Est GFR (Non-Af Amer) 38 POC Glucose (mg/dL) 259 H 385 H (65-110) mg/dL Random Glucose 253 H (70-110) mg/dL Hemoglobin A1c (4.2-6.5) % Calcium 8.6 (8.4-10.5) mg/dL Phosphorus (2.5-4.5) mg/dL Magnesium (1.7-2.2) mg/dL Total Bilirubin (0.2-1.3) mg/dL AST (15-39) U/L ALT (7-56) U/L Alkaline Phosphatase (38-133) U/L Total Protein (5.8-8.3) g/dL Albumin (3.0-4.8) g/dL Globulin gm/dL Albumin/Globulin Ratio (1.1-1.8) Triglycerides (35-160) mg/dL Cholesterol (130-200) mg/dL LDL Cholesterol Direct (0-129) mg/dL HDL Cholesterol (29-60) mg/dL Lipase (23-300) U/L Thyroxine (T4) (5.5-11.0) ug/dL TSH 3rd Generation (0.46-4.68) mIU/mL Venous Blood Potassium 4.4 (3.6-5.2) mmol/L 08/28/16 08/28/16 08/28/16 Range/Units 14:15 14:00 12:54 WBC (4.5-11.0) 10^3/ul RBC (3.5-6.1) 10^6/uL Hgb (12.0-16.0) gm/dL Hct (36.0-48.0) % MCV (80.0-105.0) fL MCH (25.0-35.0) pg MCHC (31.0-37.0) g/dl RDW (11.5-14.5) % Plt Count (120.0-450.0) 10^3/uL MPV (7.0-11.0) fl pO2 (30-55) mm/Hg VBG pH (7.32-7.43) VBG pCO2 (40-60) VBG HCO3 (21-28) mmol/l VBG Total CO2 (22-28) mmol.L VBG O2 Sat (Calc) (40-65) % VBG Base Excess (0.0-2.0) mmol/L VBG Potassium (3.6-5.2) mmol/L Glucose (65-105) mg/dl Lactate (0.7-2.1) mmol/L FiO2 % Sodium 137 (132-148) mmol/L Potassium 4.5 (3.6-5.0) mmol/L Chloride 101 (95-110) mmol/L Carbon Dioxide 14 L (21-33) mmol/L Anion Gap 27 H (10-20) BUN 36 H (7-21) mg/dL Creatinine 1.6 H (0.5-1.4) mg/dL Est GFR ( Amer) 39 Est GFR (Non-Af Amer) 33 POC Glucose (mg/dL) 390 H 459 H* (65-110) mg/dL Random Glucose 418 H* D (70-110) mg/dL Hemoglobin A1c (4.2-6.5) % Calcium 8.7 (8.4-10.5) mg/dL Phosphorus (2.5-4.5) mg/dL Magnesium (1.7-2.2) mg/dL Total Bilirubin (0.2-1.3) mg/dL AST (15-39) U/L ALT (7-56) U/L Alkaline Phosphatase (38-133) U/L Total Protein (5.8-8.3) g/dL Albumin (3.0-4.8) g/dL Globulin gm/dL Albumin/Globulin Ratio (1.1-1.8) Triglycerides (35-160) mg/dL Cholesterol (130-200) mg/dL LDL Cholesterol Direct (0-129) mg/dL HDL Cholesterol (29-60) mg/dL Lipase (23-300) U/L Thyroxine (T4) (5.5-11.0) ug/dL TSH 3rd Generation (0.46-4.68) mIU/mL Venous Blood Potassium (3.6-5.2) mmol/L 08/28/16 08/28/16 08/28/16 Range/Units 12:00 11:07 10:33 WBC (4.5-11.0) 10^3/ul RBC (3.5-6.1) 10^6/uL Hgb (12.0-16.0) gm/dL Hct (36.0-48.0) % MCV (80.0-105.0) fL MCH (25.0-35.0) pg MCHC (31.0-37.0) g/dl RDW (11.5-14.5) % Plt Count (120.0-450.0) 10^3/uL MPV (7.0-11.0) fl pO2 (30-55) mm/Hg VBG pH (7.32-7.43) VBG pCO2 (40-60) VBG HCO3 (21-28) mmol/l VBG Total CO2 (22-28) mmol.L VBG O2 Sat (Calc) (40-65) % VBG Base Excess (0.0-2.0) mmol/L VBG Potassium (3.6-5.2) mmol/L Glucose (65-105) mg/dl Lactate (0.7-2.1) mmol/L FiO2 % Sodium (132-148) mmol/L Potassium (3.6-5.0) mmol/L Chloride (95-110) mmol/L Carbon Dioxide (21-33) mmol/L Anion Gap (10-20) BUN (7-21) mg/dL Creatinine (0.5-1.4) mg/dL Est GFR ( Amer) Est GFR (Non-Af Amer) POC Glucose (mg/dL) 400 H* 412 H* 468 H* (65-110) mg/dL Random Glucose (70-110) mg/dL Hemoglobin A1c (4.2-6.5) % Calcium (8.4-10.5) mg/dL Phosphorus (2.5-4.5) mg/dL Magnesium (1.7-2.2) mg/dL Total Bilirubin (0.2-1.3) mg/dL AST (15-39) U/L ALT (7-56) U/L Alkaline Phosphatase (38-133) U/L Total Protein (5.8-8.3) g/dL Albumin (3.0-4.8) g/dL Globulin gm/dL Albumin/Globulin Ratio (1.1-1.8) Triglycerides (35-160) mg/dL Cholesterol (130-200) mg/dL LDL Cholesterol Direct (0-129) mg/dL HDL Cholesterol (29-60) mg/dL Lipase (23-300) U/L Thyroxine (T4) (5.5-11.0) ug/dL TSH 3rd Generation (0.46-4.68) mIU/mL Venous Blood Potassium (3.6-5.2) mmol/L 08/28/16 08/28/16 Range/Units 10:16 09:13 WBC (4.5-11.0) 10^3/ul RBC (3.5-6.1) 10^6/uL Hgb (12.0-16.0) gm/dL Hct (36.0-48.0) % MCV (80.0-105.0) fL MCH (25.0-35.0) pg MCHC (31.0-37.0) g/dl RDW (11.5-14.5) % Plt Count (120.0-450.0) 10^3/uL MPV (7.0-11.0) fl pO2 (30-55) mm/Hg VBG pH (7.32-7.43) VBG pCO2 (40-60) VBG HCO3 (21-28) mmol/l VBG Total CO2 (22-28) mmol.L VBG O2 Sat (Calc) (40-65) % VBG Base Excess (0.0-2.0) mmol/L VBG Potassium (3.6-5.2) mmol/L Glucose (65-105) mg/dl Lactate (0.7-2.1) mmol/L FiO2 % Sodium (132-148) mmol/L Potassium (3.6-5.0) mmol/L Chloride (95-110) mmol/L Carbon Dioxide (21-33) mmol/L Anion Gap (10-20) BUN (7-21) mg/dL Creatinine (0.5-1.4) mg/dL Est GFR ( Amer) Est GFR (Non-Af Amer) POC Glucose (mg/dL) 471 H* (65-110) mg/dL Random Glucose (70-110) mg/dL Hemoglobin A1c 12.0 H (4.2-6.5) % Calcium (8.4-10.5) mg/dL Phosphorus (2.5-4.5) mg/dL Magnesium (1.7-2.2) mg/dL Total Bilirubin (0.2-1.3) mg/dL AST (15-39) U/L ALT (7-56) U/L Alkaline Phosphatase (38-133) U/L Total Protein (5.8-8.3) g/dL Albumin (3.0-4.8) g/dL Globulin gm/dL Albumin/Globulin Ratio (1.1-1.8) Triglycerides (35-160) mg/dL Cholesterol (130-200) mg/dL LDL Cholesterol Direct (0-129) mg/dL HDL Cholesterol (29-60) mg/dL Lipase (23-300) U/L Thyroxine (T4) (5.5-11.0) ug/dL TSH 3rd Generation (0.46-4.68) mIU/mL Venous Blood Potassium (3.6-5.2) mmol/L Laboratory Results - last 24 hr 08/28/16 08/28/16 08/28/16 09:13 10:16 10:33 WBC RBC Hgb Hct MCV MCH MCHC RDW Plt Count MPV pO2 VBG pH VBG pCO2 VBG HCO3 VBG Total CO2 VBG O2 Sat (Calc) VBG Base Excess VBG Potassium Glucose Lactate FiO2 Sodium Potassium Chloride Carbon Dioxide Anion Gap BUN Creatinine Est GFR ( Amer) Est GFR (Non-Af Amer) POC Glucose (mg/dL) 471 H* 468 H* Random Glucose Hemoglobin A1c 12.0 H Calcium Phosphorus Magnesium Total Bilirubin AST ALT Alkaline Phosphatase Total Protein Albumin Globulin Albumin/Globulin Ratio Triglycerides Cholesterol LDL Cholesterol Direct HDL Cholesterol Lipase Thyroxine (T4) TSH 3rd Generation Venous Blood Potassium 08/28/16 08/28/16 08/28/16 11:07 12:00 12:54 WBC RBC Hgb Hct MCV MCH MCHC RDW Plt Count MPV pO2 VBG pH VBG pCO2 VBG HCO3 VBG Total CO2 VBG O2 Sat (Calc) VBG Base Excess VBG Potassium Glucose Lactate FiO2 Sodium Potassium Chloride Carbon Dioxide Anion Gap BUN Creatinine Est GFR ( Amer) Est GFR (Non-Af Amer) POC Glucose (mg/dL) 412 H* 400 H* 459 H* Random Glucose Hemoglobin A1c Calcium Phosphorus Magnesium Total Bilirubin AST ALT Alkaline Phosphatase Total Protein Albumin Globulin Albumin/Globulin Ratio Triglycerides Cholesterol LDL Cholesterol Direct HDL Cholesterol Lipase Thyroxine (T4) TSH 3rd Generation Venous Blood Potassium 08/28/16 08/28/16 08/28/16 14:00 14:15 15:07 WBC RBC Hgb Hct MCV MCH MCHC RDW Plt Count MPV pO2 VBG pH VBG pCO2 VBG HCO3 VBG Total CO2 VBG O2 Sat (Calc) VBG Base Excess VBG Potassium Glucose Lactate FiO2 Sodium 137 Potassium 4.5 Chloride 101 Carbon Dioxide 14 L Anion Gap 27 H BUN 36 H Creatinine 1.6 H Est GFR ( Amer) 39 Est GFR (Non-Af Amer) 33 POC Glucose (mg/dL) 390 H 385 H Random Glucose 418 H* D Hemoglobin A1c Calcium 8.7 Phosphorus Magnesium Total Bilirubin AST ALT Alkaline Phosphatase Total Protein Albumin Globulin Albumin/Globulin Ratio Triglycerides Cholesterol LDL Cholesterol Direct HDL Cholesterol Lipase Thyroxine (T4) TSH 3rd Generation Venous Blood Potassium 08/28/16 08/28/16 08/28/16 16:14 16:17 17:09 WBC RBC Hgb Hct MCV MCH MCHC RDW Plt Count MPV pO2 40 VBG pH 7.20 L VBG pCO2 37.0 L VBG HCO3 14.5 L VBG Total CO2 15.6 L VBG O2 Sat (Calc) 74.8 H VBG Base Excess -12.7 L VBG Potassium 4.4 Glucose 261 H Lactate 1.6 FiO2 21.0 Sodium 137 Potassium 4.5 Chloride 104 Carbon Dioxide 16 L Anion Gap 22 H BUN 36 H Creatinine 1.4 Est GFR ( Amer) 46 Est GFR (Non-Af Amer) 38 POC Glucose (mg/dL) 259 H 233 H Random Glucose 253 H Hemoglobin A1c Calcium 8.6 Phosphorus Magnesium Total Bilirubin AST ALT Alkaline Phosphatase Total Protein Albumin Globulin Albumin/Globulin Ratio Triglycerides Cholesterol LDL Cholesterol Direct HDL Cholesterol Lipase Thyroxine (T4) TSH 3rd Generation Venous Blood Potassium 4.4 08/28/16 08/28/16 08/28/16 18:02 19:08 20:00 WBC RBC Hgb Hct MCV MCH MCHC RDW Plt Count MPV pO2 VBG pH VBG pCO2 VBG HCO3 VBG Total CO2 VBG O2 Sat (Calc) VBG Base Excess VBG Potassium Glucose Lactate FiO2 Sodium 137 Potassium 4.2 Chloride 104 Carbon Dioxide 22 Anion Gap 15 BUN 31 H Creatinine 1.2 Est GFR ( Amer) 55 Est GFR (Non-Af Amer) 45 POC Glucose (mg/dL) 205 H 196 H Random Glucose 189 H Hemoglobin A1c Calcium 8.3 L Phosphorus Magnesium Total Bilirubin AST ALT Alkaline Phosphatase Total Protein Albumin Globulin Albumin/Globulin Ratio Triglycerides Cholesterol LDL Cholesterol Direct HDL Cholesterol Lipase Thyroxine (T4) TSH 3rd Generation Venous Blood Potassium 08/28/16 08/28/16 08/28/16 20:04 21:06 21:59 WBC RBC Hgb Hct MCV MCH MCHC RDW Plt Count MPV pO2 VBG pH VBG pCO2 VBG HCO3 VBG Total CO2 VBG O2 Sat (Calc) VBG Base Excess VBG Potassium Glucose Lactate FiO2 Sodium Potassium Chloride Carbon Dioxide Anion Gap BUN Creatinine Est GFR ( Amer) Est GFR (Non-Af Amer) POC Glucose (mg/dL) 208 H 193 H 172 H Random Glucose Hemoglobin A1c Calcium Phosphorus Magnesium Total Bilirubin AST ALT Alkaline Phosphatase Total Protein Albumin Globulin Albumin/Globulin Ratio Triglycerides Cholesterol LDL Cholesterol Direct HDL Cholesterol Lipase Thyroxine (T4) TSH 3rd Generation Venous Blood Potassium 08/28/16 08/29/16 08/29/16 23:02 03:07 05:00 WBC 11.9 H RBC 4.00 Hgb 11.8 L Hct 34.2 L MCV 85.5 MCH 29.5 MCHC 34.5 RDW 13.3 Plt Count 208 MPV 9.1 pO2 VBG pH VBG pCO2 VBG HCO3 VBG Total CO2 VBG O2 Sat (Calc) VBG Base Excess VBG Potassium Glucose Lactate FiO2 Sodium 134 Potassium 4.7 Chloride 101 Carbon Dioxide 21 Anion Gap 17 BUN 24 H Creatinine 1.0 Est GFR ( Amer) > 60 Est GFR (Non-Af Amer) 56 POC Glucose (mg/dL) 166 H 323 H Random Glucose 407 H* D Hemoglobin A1c 12.3 H Calcium 8.3 L Phosphorus 2.5 Magnesium 2.2 Total Bilirubin 0.6 AST 26 ALT 16 Alkaline Phosphatase 128 Total Protein 7.3 Albumin 3.5 Globulin 3.7 Albumin/Globulin Ratio 0.9 L Triglycerides 104 Cholesterol 150 LDL Cholesterol Direct 54 HDL Cholesterol 59 Lipase 34 Thyroxine (T4) 6.6 TSH 3rd Generation 0.99 Venous Blood Potassium 08/29/16 08/29/16 06:36 11:00 WBC RBC Hgb Hct MCV MCH MCHC RDW Plt Count MPV pO2 VBG pH VBG pCO2 VBG HCO3 VBG Total CO2 VBG O2 Sat (Calc) VBG Base Excess VBG Potassium Glucose Lactate FiO2 Sodium 137 136 Potassium 4.8 4.0 Chloride 104 104 Carbon Dioxide 18 L 23 Anion Gap 20 13 BUN 23 H 19 Creatinine 1.0 0.9 Est GFR ( Amer) > 60 > 60 Est GFR (Non-Af Amer) 56 > 60 POC Glucose (mg/dL) Random Glucose 431 H* 356 H* Hemoglobin A1c Calcium 8.3 L 8.3 L Phosphorus Magnesium Total Bilirubin AST ALT Alkaline Phosphatase Total Protein Albumin Globulin Albumin/Globulin Ratio Triglycerides Cholesterol LDL Cholesterol Direct HDL Cholesterol Lipase Thyroxine (T4) TSH 3rd Generation Venous Blood Potassium Fingerstick Blood Sugar Results: 366 Review of Systems - Constitutional Constitutional: absent: Fever, Chills - EENT Eyes: absent: Blurred Vision, Change in Vision Ears: absent: Dizziness - Cardiovascular Cardiovascular: absent: Chest Pain, Dyspnea - Respiratory Respiratory: absent: Cough, Pain on Inspiration - Gastrointestinal Gastrointestinal: absent: Abdominal Pain, Nausea, Vomiting - Genitourinary Genitourinary: absent: Dysuria - Reproductive: Female Reproductive:Female: Post Menopausal - Menstruation Menstruation: Post Menopausal - Integumentary Integumentary: absent: New Lesions - Neurological Neurological: absent: Dizziness, Headaches - Psychiatric Psychiatric: Depression Critical Care Progress Note - Ventilator Checklist PUD Prophalyxis: Yes DVT Prophylaxis: Yes - Nutrition Nutrition: Nutrition Category Date Time Status Consistent Carbohydrate [DIET] Diets 08/29/16 Breakfast Ordered Assessment/Plan - Assessment and Plan (Free Text) Assessment: 61 yo F w h/o COPD, HTN, DM1m CVA with L hemiparesis, bipolar disorder admitted with DKA Plan: Neuro: AAOx2, NAD. Continue to monitor mental status CV: HD stable Pulm: No acute issues. Saturating well on room air. Continue to monitor GI: GI ppx Renal: YOGESH resolved. Continue IVF for now. Continue to monitor renal function, I &Os Renal US is unremarkable Endo: DKA resolved. Anion gap closed. pH on VBG this AM 7.20. Patient now off insulin drip. On Levemir 30units QHS, Humalog 14units QAC, Lispro Low SSI. 1/ 2NS @ 125cc/hr A1c 12.0 ID: No signs of infection. Afebrile, WBC 11.9. Blood cultures negative at 24 hours. Final urine culture negative Heme: Mild normocytic anemia, no signs of bleeding. Continue to monitor FEN: Significant hyperkalemia at admission resolved Hyponatremia resolved DVT/GI ppx: SQH, Protonix, DM diet Dispo: Transfer to telemetry - Date & Time Date: 08/29/16 Time: 15:49 <Cassandra MCCLELLAN,Emily H - Last Filed: 08/29/16 18:45> CCU Objective - Vital Signs / Intake & Output Intake and Output (Last 8hrs): Intake & Output 08/29/16 08/29/16 08/29/16 06:59 14:59 22:59 Intake Total 611 Output Total 770 Balance -159 Intake: IV 611 Right Hand 611 Output: Urine 750 Urethral (Higgins) 750 Emesis 20 Other: Voiding Method Indwelling Catheter - Medications Active Medications: Active Medications Generic Name Dose Route Start Last Admin Trade Name Freq PRN Reason Stop Dose Admin Heparin Sodium (Porcine) 5,000 units 08/28/16 09:00 08/29/16 11:00 Heparin SC 5,000 units Q12H [facility] Administration Protocol Insulin Human Regular 100 100 mls @ 0 mls/hr 08/29/16 07:14 units/ Sodium Chloride IV .Q0M PRN TITRATE PER MD ORDER Protocol Per Protocol Dextrose/Sodium Chloride 1,000 mls @ 100 mls/hr 08/29/16 07:30 Dextrose 5%/0.45% Ns 1000 Ml IV .Q10H LELIA Sodium Chloride 1,000 mls @ 125 mls/hr 08/29/16 12:30 08/29/16 15:58 Sodium Chloride 0.45% IV 125 mls/hr .Q8H LELIA Administration Insulin Detemir 30 unit 08/29/16 22:00 Levemir SC HS LELIA Insulin Human Lispro 0 units 08/29/16 07:30 08/29/16 18:18 Humalog Low SC Not Given ACHS [facility] Protocol Insulin Human Lispro 14 units 08/29/16 16:30 08/29/16 17:35 Humalog SC 14 units AC LELIA Administration Ondansetron HCl 4 mg 08/28/16 19:28 Zofran Inj IVP Q6H PRN Nausea/Vomiting Pantoprazole Sodium 40 mg 08/28/16 10:00 08/29/16 11:00 Protonix Inj IVP 40 mg DAILY LELIA Administration - Patient Studies Lab Studies: Microbiology Studies 08/28/16 10:50 MRSA Culture (Admit) - Final Nose MRSA NOT DETECTED 08/28/16 08:54 Blood Culture - Preliminary Blood NO GROWTH AFTER 24 HOURS 08/28/16 08:31 Blood Culture - Preliminary Blood NO GROWTH AFTER 24 HOURS 08/28/16 09:00 Urine Culture - Final Urine No Growth (<1,000 CFU/ML) Lab Studies 08/29/16 08/29/16 08/29/16 Range/Units 11:00 06:36 05:00 WBC 11.9 H (4.5-11.0) 10^3/ul RBC 4.00 (3.5-6.1) 10^6/uL Hgb 11.8 L (12.0-16.0) gm/dL Hct 34.2 L (36.0-48.0) % MCV 85.5 (80.0-105.0) fL MCH 29.5 (25.0-35.0) pg MCHC 34.5 (31.0-37.0) g/dl RDW 13.3 (11.5-14.5) % Plt Count 208 (120.0-450.0) 10^3/uL MPV 9.1 (7.0-11.0) fl Sodium 136 137 134 (132-148) mmol/L Potassium 4.0 4.8 4.7 (3.6-5.0) mmol/L Chloride 104 104 101 (95-110) mmol/L Carbon Dioxide 23 18 L 21 (21-33) mmol/L Anion Gap 13 20 17 (10-20) BUN 19 23 H 24 H (7-21) mg/dL Creatinine 0.9 1.0 1.0 (0.5-1.4) mg/dL Est GFR ( Amer) > 60 > 60 > 60 Est GFR (Non-Af Amer) > 60 56 56 POC Glucose (mg/dL) (65-110) mg/dL Random Glucose 356 H* 431 H* 407 H* D (70-110) mg/dL Hemoglobin A1c 12.3 H (4.2-6.5) % Calcium 8.3 L 8.3 L 8.3 L (8.4-10.5) mg/dL Phosphorus 2.5 (2.5-4.5) mg/dL Magnesium 2.2 (1.7-2.2) mg/dL Total Bilirubin 0.6 (0.2-1.3) mg/dL AST 26 (15-39) U/L ALT 16 (7-56) U/L Alkaline Phosphatase 128 (38-133) U/L Total Protein 7.3 (5.8-8.3) g/dL Albumin 3.5 (3.0-4.8) g/dL Globulin 3.7 gm/dL Albumin/Globulin Ratio 0.9 L (1.1-1.8) Triglycerides 104 (35-160) mg/dL Cholesterol 150 (130-200) mg/dL LDL Cholesterol Direct 54 (0-129) mg/dL HDL Cholesterol 59 (29-60) mg/dL Lipase 34 (23-300) U/L Thyroxine (T4) 6.6 (5.5-11.0) ug/dL TSH 3rd Generation 0.99 (0.46-4.68) mIU/mL 08/29/16 08/28/16 08/28/16 Range/Units 03:07 23:02 21:59 WBC (4.5-11.0) 10^3/ul RBC (3.5-6.1) 10^6/uL Hgb (12.0-16.0) gm/dL Hct (36.0-48.0) % MCV (80.0-105.0) fL MCH (25.0-35.0) pg MCHC (31.0-37.0) g/dl RDW (11.5-14.5) % Plt Count (120.0-450.0) 10^3/uL MPV (7.0-11.0) fl Sodium (132-148) mmol/L Potassium (3.6-5.0) mmol/L Chloride (95-110) mmol/L Carbon Dioxide (21-33) mmol/L Anion Gap (10-20) BUN (7-21) mg/dL Creatinine (0.5-1.4) mg/dL Est GFR ( Amer) Est GFR (Non-Af Amer) POC Glucose (mg/dL) 323 H 166 H 172 H (65-110) mg/dL Random Glucose (70-110) mg/dL Hemoglobin A1c (4.2-6.5) % Calcium (8.4-10.5) mg/dL Phosphorus (2.5-4.5) mg/dL Magnesium (1.7-2.2) mg/dL Total Bilirubin (0.2-1.3) mg/dL AST (15-39) U/L ALT (7-56) U/L Alkaline Phosphatase (38-133) U/L Total Protein (5.8-8.3) g/dL Albumin (3.0-4.8) g/dL Globulin gm/dL Albumin/Globulin Ratio (1.1-1.8) Triglycerides (35-160) mg/dL Cholesterol (130-200) mg/dL LDL Cholesterol Direct (0-129) mg/dL HDL Cholesterol (29-60) mg/dL Lipase (23-300) U/L Thyroxine (T4) (5.5-11.0) ug/dL TSH 3rd Generation (0.46-4.68) mIU/mL 08/28/16 08/28/16 08/28/16 Range/Units 21:06 20:04 20:00 WBC (4.5-11.0) 10^3/ul RBC (3.5-6.1) 10^6/uL Hgb (12.0-16.0) gm/dL Hct (36.0-48.0) % MCV (80.0-105.0) fL MCH (25.0-35.0) pg MCHC (31.0-37.0) g/dl RDW (11.5-14.5) % Plt Count (120.0-450.0) 10^3/uL MPV (7.0-11.0) fl Sodium 137 (132-148) mmol/L Potassium 4.2 (3.6-5.0) mmol/L Chloride 104 (95-110) mmol/L Carbon Dioxide 22 (21-33) mmol/L Anion Gap 15 (10-20) BUN 31 H (7-21) mg/dL Creatinine 1.2 (0.5-1.4) mg/dL Est GFR ( Amer) 55 Est GFR (Non-Af Amer) 45 POC Glucose (mg/dL) 193 H 208 H (65-110) mg/dL Random Glucose 189 H (70-110) mg/dL Hemoglobin A1c (4.2-6.5) % Calcium 8.3 L (8.4-10.5) mg/dL Phosphorus (2.5-4.5) mg/dL Magnesium (1.7-2.2) mg/dL Total Bilirubin (0.2-1.3) mg/dL AST (15-39) U/L ALT (7-56) U/L Alkaline Phosphatase (38-133) U/L Total Protein (5.8-8.3) g/dL Albumin (3.0-4.8) g/dL Globulin gm/dL Albumin/Globulin Ratio (1.1-1.8) Triglycerides (35-160) mg/dL Cholesterol (130-200) mg/dL LDL Cholesterol Direct (0-129) mg/dL HDL Cholesterol (29-60) mg/dL Lipase (23-300) U/L Thyroxine (T4) (5.5-11.0) ug/dL TSH 3rd Generation (0.46-4.68) mIU/mL 08/28/16 08/28/16 08/28/16 Range/Units 19:08 18:02 17:09 WBC (4.5-11.0) 10^3/ul RBC (3.5-6.1) 10^6/uL Hgb (12.0-16.0) gm/dL Hct (36.0-48.0) % MCV (80.0-105.0) fL MCH (25.0-35.0) pg MCHC (31.0-37.0) g/dl RDW (11.5-14.5) % Plt Count (120.0-450.0) 10^3/uL MPV (7.0-11.0) fl Sodium (132-148) mmol/L Potassium (3.6-5.0) mmol/L Chloride (95-110) mmol/L Carbon Dioxide (21-33) mmol/L Anion Gap (10-20) BUN (7-21) mg/dL Creatinine (0.5-1.4) mg/dL Est GFR ( Amer) Est GFR (Non-Af Amer) POC Glucose (mg/dL) 196 H 205 H 233 H (65-110) mg/dL Random Glucose (70-110) mg/dL Hemoglobin A1c (4.2-6.5) % Calcium (8.4-10.5) mg/dL Phosphorus (2.5-4.5) mg/dL Magnesium (1.7-2.2) mg/dL Total Bilirubin (0.2-1.3) mg/dL AST (15-39) U/L ALT (7-56) U/L Alkaline Phosphatase (38-133) U/L Total Protein (5.8-8.3) g/dL Albumin (3.0-4.8) g/dL Globulin gm/dL Albumin/Globulin Ratio (1.1-1.8) Triglycerides (35-160) mg/dL Cholesterol (130-200) mg/dL LDL Cholesterol Direct (0-129) mg/dL HDL Cholesterol (29-60) mg/dL Lipase (23-300) U/L Thyroxine (T4) (5.5-11.0) ug/dL TSH 3rd Generation (0.46-4.68) mIU/mL 08/28/16 08/28/16 08/28/16 Range/Units 16:14 15:07 14:15 WBC (4.5-11.0) 10^3/ul RBC (3.5-6.1) 10^6/uL Hgb (12.0-16.0) gm/dL Hct (36.0-48.0) % MCV (80.0-105.0) fL MCH (25.0-35.0) pg MCHC (31.0-37.0) g/dl RDW (11.5-14.5) % Plt Count (120.0-450.0) 10^3/uL MPV (7.0-11.0) fl Sodium (132-148) mmol/L Potassium (3.6-5.0) mmol/L Chloride (95-110) mmol/L Carbon Dioxide (21-33) mmol/L Anion Gap (10-20) BUN (7-21) mg/dL Creatinine (0.5-1.4) mg/dL Est GFR ( Amer) Est GFR (Non-Af Amer) POC Glucose (mg/dL) 259 H 385 H 390 H (65-110) mg/dL Random Glucose (70-110) mg/dL Hemoglobin A1c (4.2-6.5) % Calcium (8.4-10.5) mg/dL Phosphorus (2.5-4.5) mg/dL Magnesium (1.7-2.2) mg/dL Total Bilirubin (0.2-1.3) mg/dL AST (15-39) U/L ALT (7-56) U/L Alkaline Phosphatase (38-133) U/L Total Protein (5.8-8.3) g/dL Albumin (3.0-4.8) g/dL Globulin gm/dL Albumin/Globulin Ratio (1.1-1.8) Triglycerides (35-160) mg/dL Cholesterol (130-200) mg/dL LDL Cholesterol Direct (0-129) mg/dL HDL Cholesterol (29-60) mg/dL Lipase (23-300) U/L Thyroxine (T4) (5.5-11.0) ug/dL TSH 3rd Generation (0.46-4.68) mIU/mL 08/28/16 08/28/16 08/28/16 Range/Units 12:54 12:00 11:07 WBC (4.5-11.0) 10^3/ul RBC (3.5-6.1) 10^6/uL Hgb (12.0-16.0) gm/dL Hct (36.0-48.0) % MCV (80.0-105.0) fL MCH (25.0-35.0) pg MCHC (31.0-37.0) g/dl RDW (11.5-14.5) % Plt Count (120.0-450.0) 10^3/uL MPV (7.0-11.0) fl Sodium (132-148) mmol/L Potassium (3.6-5.0) mmol/L Chloride (95-110) mmol/L Carbon Dioxide (21-33) mmol/L Anion Gap (10-20) BUN (7-21) mg/dL Creatinine (0.5-1.4) mg/dL Est GFR ( Amer) Est GFR (Non-Af Amer) POC Glucose (mg/dL) 459 H* 400 H* 412 H* (65-110) mg/dL Random Glucose (70-110) mg/dL Hemoglobin A1c (4.2-6.5) % Calcium (8.4-10.5) mg/dL Phosphorus (2.5-4.5) mg/dL Magnesium (1.7-2.2) mg/dL Total Bilirubin (0.2-1.3) mg/dL AST (15-39) U/L ALT (7-56) U/L Alkaline Phosphatase (38-133) U/L Total Protein (5.8-8.3) g/dL Albumin (3.0-4.8) g/dL Globulin gm/dL Albumin/Globulin Ratio (1.1-1.8) Triglycerides (35-160) mg/dL Cholesterol (130-200) mg/dL LDL Cholesterol Direct (0-129) mg/dL HDL Cholesterol (29-60) mg/dL Lipase (23-300) U/L Thyroxine (T4) (5.5-11.0) ug/dL TSH 3rd Generation (0.46-4.68) mIU/mL 08/28/16 Range/Units 10:33 WBC (4.5-11.0) 10^3/ul RBC (3.5-6.1) 10^6/uL Hgb (12.0-16.0) gm/dL Hct (36.0-48.0) % MCV (80.0-105.0) fL MCH (25.0-35.0) pg MCHC (31.0-37.0) g/dl RDW (11.5-14.5) % Plt Count (120.0-450.0) 10^3/uL MPV (7.0-11.0) fl Sodium (132-148) mmol/L Potassium (3.6-5.0) mmol/L Chloride (95-110) mmol/L Carbon Dioxide (21-33) mmol/L Anion Gap (10-20) BUN (7-21) mg/dL Creatinine (0.5-1.4) mg/dL Est GFR ( Amer) Est GFR (Non-Af Amer) POC Glucose (mg/dL) 468 H* (65-110) mg/dL Random Glucose (70-110) mg/dL Hemoglobin A1c (4.2-6.5) % Calcium (8.4-10.5) mg/dL Phosphorus (2.5-4.5) mg/dL Magnesium (1.7-2.2) mg/dL Total Bilirubin (0.2-1.3) mg/dL AST (15-39) U/L ALT (7-56) U/L Alkaline Phosphatase (38-133) U/L Total Protein (5.8-8.3) g/dL Albumin (3.0-4.8) g/dL Globulin gm/dL Albumin/Globulin Ratio (1.1-1.8) Triglycerides (35-160) mg/dL Cholesterol (130-200) mg/dL LDL Cholesterol Direct (0-129) mg/dL HDL Cholesterol (29-60) mg/dL Lipase (23-300) U/L Thyroxine (T4) (5.5-11.0) ug/dL TSH 3rd Generation (0.46-4.68) mIU/mL Laboratory Results - last 24 hr 08/28/16 08/28/16 08/28/16 10:33 11:07 12:00 WBC RBC Hgb Hct MCV MCH MCHC RDW Plt Count MPV Sodium Potassium Chloride Carbon Dioxide Anion Gap BUN Creatinine Est GFR ( Amer) Est GFR (Non-Af Amer) POC Glucose (mg/dL) 468 H* 412 H* 400 H* Random Glucose Hemoglobin A1c Calcium Phosphorus Magnesium Total Bilirubin AST ALT Alkaline Phosphatase Total Protein Albumin Globulin Albumin/Globulin Ratio Triglycerides Cholesterol LDL Cholesterol Direct HDL Cholesterol Lipase Thyroxine (T4) TSH 3rd Generation 08/28/16 08/28/16 08/28/16 12:54 14:15 15:07 WBC RBC Hgb Hct MCV MCH MCHC RDW Plt Count MPV Sodium Potassium Chloride Carbon Dioxide Anion Gap BUN Creatinine Est GFR ( Amer) Est GFR (Non-Af Amer) POC Glucose (mg/dL) 459 H* 390 H 385 H Random Glucose Hemoglobin A1c Calcium Phosphorus Magnesium Total Bilirubin AST ALT Alkaline Phosphatase Total Protein Albumin Globulin Albumin/Globulin Ratio Triglycerides Cholesterol LDL Cholesterol Direct HDL Cholesterol Lipase Thyroxine (T4) TSH 3rd Generation 08/28/16 08/28/16 08/28/16 16:14 17:09 18:02 WBC RBC Hgb Hct MCV MCH MCHC RDW Plt Count MPV Sodium Potassium Chloride Carbon Dioxide Anion Gap BUN Creatinine Est GFR ( Amer) Est GFR (Non-Af Amer) POC Glucose (mg/dL) 259 H 233 H 205 H Random Glucose Hemoglobin A1c Calcium Phosphorus Magnesium Total Bilirubin AST ALT Alkaline Phosphatase Total Protein Albumin Globulin Albumin/Globulin Ratio Triglycerides Cholesterol LDL Cholesterol Direct HDL Cholesterol Lipase Thyroxine (T4) TSH 3rd Generation 08/28/16 08/28/16 08/28/16 19:08 20:00 20:04 WBC RBC Hgb Hct MCV MCH MCHC RDW Plt Count MPV Sodium 137 Potassium 4.2 Chloride 104 Carbon Dioxide 22 Anion Gap 15 BUN 31 H Creatinine 1.2 Est GFR ( Amer) 55 Est GFR (Non-Af Amer) 45 POC Glucose (mg/dL) 196 H 208 H Random Glucose 189 H Hemoglobin A1c Calcium 8.3 L Phosphorus Magnesium Total Bilirubin AST ALT Alkaline Phosphatase Total Protein Albumin Globulin Albumin/Globulin Ratio Triglycerides Cholesterol LDL Cholesterol Direct HDL Cholesterol Lipase Thyroxine (T4) TSH 3rd Generation 08/28/16 08/28/16 08/28/16 21:06 21:59 23:02 WBC RBC Hgb Hct MCV MCH MCHC RDW Plt Count MPV Sodium Potassium Chloride Carbon Dioxide Anion Gap BUN Creatinine Est GFR ( Amer) Est GFR (Non-Af Amer) POC Glucose (mg/dL) 193 H 172 H 166 H Random Glucose Hemoglobin A1c Calcium Phosphorus Magnesium Total Bilirubin AST ALT Alkaline Phosphatase Total Protein Albumin Globulin Albumin/Globulin Ratio Triglycerides Cholesterol LDL Cholesterol Direct HDL Cholesterol Lipase Thyroxine (T4) TSH 3rd Generation 08/29/16 08/29/16 08/29/16 03:07 05:00 06:36 WBC 11.9 H RBC 4.00 Hgb 11.8 L Hct 34.2 L MCV 85.5 MCH 29.5 MCHC 34.5 RDW 13.3 Plt Count 208 MPV 9.1 Sodium 134 137 Potassium 4.7 4.8 Chloride 101 104 Carbon Dioxide 21 18 L Anion Gap 17 20 BUN 24 H 23 H Creatinine 1.0 1.0 Est GFR ( Amer) > 60 > 60 Est GFR (Non-Af Amer) 56 56 POC Glucose (mg/dL) 323 H Random Glucose 407 H* D 431 H* Hemoglobin A1c 12.3 H Calcium 8.3 L 8.3 L Phosphorus 2.5 Magnesium 2.2 Total Bilirubin 0.6 AST 26 ALT 16 Alkaline Phosphatase 128 Total Protein 7.3 Albumin 3.5 Globulin 3.7 Albumin/Globulin Ratio 0.9 L Triglycerides 104 Cholesterol 150 LDL Cholesterol Direct 54 HDL Cholesterol 59 Lipase 34 Thyroxine (T4) 6.6 TSH 3rd Generation 0.99 08/29/16 11:00 WBC RBC Hgb Hct MCV MCH MCHC RDW Plt Count MPV Sodium 136 Potassium 4.0 Chloride 104 Carbon Dioxide 23 Anion Gap 13 BUN 19 Creatinine 0.9 Est GFR ( Amer) > 60 Est GFR (Non-Af Amer) > 60 POC Glucose (mg/dL) Random Glucose 356 H* Hemoglobin A1c Calcium 8.3 L Phosphorus Magnesium Total Bilirubin AST ALT Alkaline Phosphatase Total Protein Albumin Globulin Albumin/Globulin Ratio Triglycerides Cholesterol LDL Cholesterol Direct HDL Cholesterol Lipase Thyroxine (T4) TSH 3rd Generation Critical Care Progress Note - Nutrition Nutrition: Nutrition Category Date Time Status Consistent Carbohydrate [DIET] Diets 08/29/16 Breakfast Ordered Attending/Attestation - Attestation I have personally seen and examined this patient.: Yes I have fully participated in the care of the patient.: Yes I have reviewed all pertinent clinical information: Yes Notes (Text): 61 y/o F w/ resolving DKA OFF insulin GGT , AG closed Started on Long acting insulin w/ sliding scale coverage. Endocrine consult placed. Diabetic diet started. No current infection identified . Urine output stable. Out of bed to chair, rehab---> transfer to medical floors. Not ICU level of care. cc time 45 min
--- NOTE | 2016-08-29 12:53 | PN ---
DATE: 08/29/2016 In CCU 128, room 2. This is a 61-year-old female with recent uncontrolled type 2 insulin-requiring diabetes, presenting h ere with diabetic ketoacidosis and dehydration and has since then improved clinically and metabolical ly as noted thereof. She has been switched over to a basal and bolus insulin drug combination overni ght as ordered. However, this morning, the IV fluids were discontinued with supervening metabolic ac idosis as noted thereof. The latest chemistry showed a BUN of 23, sodium 137, potassium 4.8, chloride 104, CO2 18, glucose 431 and creatinine 1.0. So at this time, we will restart her IV hydration with half normal saline to be given at 125 mL per h our. There is still tremendous underlying volume depletion, especially with the recent metabolic dec ompensation, so the patient will really need at least another 24-48 hours of IV hydration as ordered. We will modify her basal and bolus insulin regimen and increase the Levemir to 30 units subQ at bed time daily to start tonight. We will also increase the Humalog to 14 units subQ t.i.d. before meals as ordered. We will titrate incrementally as indicated to optimize metabolic control. We will follo w. Polly Carrillo MD cc: [phone] TT: 08/29/2016 12:52:30 Confirmation # [id number] Dictation # [id number] en
[2016-08-29] MEDS: Sodium Chloride 0.45% 1,000 ML IV SCH ×2 (15:58→22:08)
[2016-08-29] MEDS ORDERED: Insulin Detemir 100 units/ml Vial (Levemir) SC SCH ×2 (22:00)
[2016-08-30] MEDS: Sodium Chloride 0.45% 1,000 ML IV SCH ×2 (04:59→13:50)
[2016-08-30 06:14] LABS: MEAN CELL VOLUME 84.7 fL (80.0-105.0); MEAN CORPUSCULAR HEMOGLOBIN 28.7 pg (25.0-35.0); MEAN CORPUSCULAR HGB CONC 33.9 g/dl (31.0-37.0); MEAN PLATELET VOLUME 9.3 fl (7.0-11.0); RED CELL DISTRIBUTION WIDTH 13.6 % (11.5-14.5)
[2016-08-30 06:25] LABS: ALB/GLOB RATIO 0.9 (1.1-1.8); ALKALINE PHOSPHATASE 116 U/L (38-133); ALT/SGPT 13 U/L (7-56); AST/SGOT 18 U/L (15-39); BILIRUBIN,TOTAL 0.5 mg/dL (0.2-1.3); BLOOD UREA NITROGEN 15 mg/dL (7-21); CALCIUM 8.1 mg/dL (8.4-10.5); CARBON DIOXIDE 25 mmol/L (21-33); CHLORIDE 104 mmol/L (95-110); GFR AFRICAN-AMERICAN > 60; GLUCOSE,RANDOM 251 mg/dL (70-110); MAGNESIUM 2.1 mg/dL (1.7-2.2); PHOSPHOROUS 1.5 mg/dL (2.5-4.5); POTASSIUM 3.5 mmol/L (3.6-5.0); SODIUM 135 mmol/L (132-148); TOTAL PROTEIN 6.9 g/dL (5.8-8.3)
[2016-08-30] MEDS: Insulin Lispro (humaLOG) LOW Coverage SC SCH ×4 (08:04→22:12)
[2016-08-30] MEDS: Insulin Lispro 1 UNITS/0.01 ML SC SCH ×3 (08:07→17:20)
[2016-08-30] MEDS ORDERED: Potassium Chloride 20 mEq ER Tab PO ONE (13:54)
[2016-08-30] MEDS: Potassium Chloride 20 MEQ in Sodium Chloride 0.45% 1,000 ML IV SCH ×2 (14:30→21:53)
--- NOTE | 2016-08-30 15:13 | PN ---
DATE: 08/30/2016 SUBJECTIVE: The patient is lying in bed in no acute distress. There is no chest pain, no shortness of breath. OBJECTIVE: VITAL SIGNS: Blood pressure 123/61, temperature 97.2, pulse 92, respiratory rate 70. LUNGS: Clear. HEART: Regular rate and rhythm. ABDOMEN: Soft, nontender. Bowel sounds are normoactive. EXTREMITIES: Without cyanosis, clubbing, or edema. NEUROLOGICALLY: The patient is awake and alert without focal, sensory, or motor deficits. SKIN: Warm and dry. LABORATORY DATA: WBC 7.0, hemoglobin 10.5, hematocrit 31.0. IMPRESSION: 1. Diabetic ketoacidosis/dehydration. 2. Chronic obstructive pulmonary disease. 3. Hypertension. PLAN: The patient has been transferred to the telemetry unit. She is receiving IV fluids as well as insulin. Continue endocrinology followup with Dr. Cole. Will check labs and electrolytes in a.m., s upplement potassium. Social work for discharge planning. Socrates Padilla JD, MD cc: [phone] TT: 08/30/2016 15:12:54 Confirmation # [id number] Dictation # [id number] jn
--- NOTE | 2016-08-30 15:41 | PN ---
DATE: 08/30/2016 ROOM: 271 This is a 61-year-old female with recent uncontrolled type 2 insulin-requiring diabetes, presenting h ere with diabetic ketoacidosis and dehydration and has since then improved clinically and metabolical ly as noted thereof. Her glucose values are fluctuating but improving as noted with the initiation o f a basal and bolus insulin drug combination as given. Her latest glucose values today have ranged from 247-228 mg/dL. Her latest chemistries include a BUN of 15, sodium 135, potassium 3.5, chloride 104, CO2 25, glucose 251 and creatinine 0.9. So, at this time, will modify her basal insulin and increase the Levemir to 40 units subQ at bedtime daily to start tonight. Will also continue the Humalog given as 14 units subQ t.i.d. before meals as ordered. Will titrate incrementally as indicated to optimize metabolic control. Will also continue the low-dose correction scale using Humalog insulin as given. Will obtain serial chemistries and ville[place] pplement accordingly as needed. Will continue now her IV hydration with potassium supplementation as ordered. Will follow and advise accordingly. Polly Carrillo MD cc: [phone] TT: 08/30/2016 15:40:36 Confirmation # [id number] Dictation # [id number]
[2016-08-30] MEDS ORDERED: Insulin Detemir 100 units/ml Vial (Levemir) SC SCH (22:00)
[2016-08-31 07:39] LABS: MEAN CORPUSCULAR HEMOGLOBIN 28.7 pg (25.0-35.0); MEAN CORPUSCULAR HGB CONC 34.2 g/dl (31.0-37.0); MEAN PLATELET VOLUME 9.1 fl (7.0-11.0); RED CELL DISTRIBUTION WIDTH 13.3 % (11.5-14.5); WHITE BLOOD COUNT 4.3 10^3/ul (4.5-11.0)
[2016-08-31 07:55] LABS: ALB/GLOB RATIO 0.9 (1.1-1.8); ALKALINE PHOSPHATASE 111 U/L (38-133); ALT/SGPT 16 U/L (7-56); AST/SGOT 21 U/L (15-39); BILIRUBIN,TOTAL 0.5 mg/dL (0.2-1.3); BLOOD UREA NITROGEN 9 mg/dL (7-21); CALCIUM 8.3 mg/dL (8.4-10.5); CARBON DIOXIDE 23 mmol/L (21-33); CHLORIDE 103 mmol/L (98-107); GFR AFRICAN-AMERICAN > 60; PHOSPHOROUS 2.2 mg/dL (2.5-4.5); POTASSIUM 4.3 mmol/L (3.6-5.0); SODIUM 134 mmol/L (132-148); TOTAL PROTEIN 6.5 g/dL (5.8-8.3)
[2016-08-31 08:09] LABS: GLUCOSE,RANDOM 350 mg/dL (70-110)
[2016-08-31] MEDS: Insulin Lispro 1 UNITS/0.01 ML SC SCH ×3 (08:58→17:31)
[2016-08-31] MEDS: Insulin Lispro (humaLOG) LOW Coverage SC SCH ×4 (08:59→21:48)
[2016-08-31] MEDS: Potassium Chloride 20 MEQ in Sodium Chloride 0.45% 1,000 ML IV SCH ×3 (09:22→21:40)
--- NOTE | 2016-08-31 13:14 | PN ---
DATE: 08/31/2016 SUBJECTIVE: The patient is lying in bed, in no acute distress. She denies chest pain or shortness o f breath. OBJECTIVE: VITAL SIGNS: Blood pressure 152/71, temperature 98.1, pulse 90, respiratory rate 20. LUNGS: Clear. HEART: Regular rate and rhythm. ABDOMEN: Soft, nontender, bowel sounds are normoactive. EXTREMITIES: Without cyanosis, clubbing, or edema. NEUROLOGIC: The patient is awake and alert without focal, sensory or motor deficits. SKIN: Warm and dry. LABORATORY DATA: WBCs 4.3, hemoglobin 10.6, hematocrit 31.0. Sodium 134, potassium 4.3, chloride 10 3, CO2 23, BUN 9, creatinine 0.8, glucose 381. IMPRESSION: 1. Diabetic ketoacidosis/dehydration. 2. Chronic obstructive pulmonary disease. 3. Hypertension. PLAN: Continue IV fluids, continue insulin. Continue endocrinology followup with Dr. Carrillo. Physical therapy evaluation and treatment. Social work for discharge planning. Socrates Padilla JD, MD cc: [phone] TT: 08/31/2016 13:13:30 Confirmation # [id number] Dictation # [id number] en
--- NOTE | 2016-08-31 13:54 | PN ---
DATE: 08/31/2016 ROOM: 271 SUBJECTIVE: This is a 61-year-old female with known history of type 2 insulin-requiring diabetes, pr esenting here with diabetic ketoacidosis and dehydration and has since then been taken off the insuli n drip infusion with ongoing vigorous IV hydration as given. Her latest glucose values are still fluctuating as noted, and today's glucose levels have ranged from 380-381 mg/dL. It was 234-341 last night as noted. Her latest chemistries showed a BUN of 9, sodiu m 134, potassium 4.3, chloride 103, CO2 of 23, glucose 350 and creatinine 0.8. She has tremendous in sulin resistance as noted from the marked hefty insulin requirements thereof. So at this time, we wi ll modify her basal and bolus insulin regimen and increase the Levemir to 50 units subcutaneous at be dtime daily and increase the Humalog to 24 units subcutaneous t.i.d. before meals to start at dinnert francine today as ordered. We will continue the low-dose correction scale using Humalog insulin as given. We will titrate incrementally as indicated to optimize metabolic control. We will notify our diabe tic nurse educator to follow up with this patient, especially to reinforce diabetic education and tary instructions, especially for insulin self-administration techniques. We will obtain serial chem istries and supplement accordingly as needed. We will follow. Polly Carrillo MD cc: [phone] TT: 08/31/2016 13:53:53 Confirmation # [id number] Dictation # [id number] mn
[2016-08-31] MEDS: Insulin Detemir 100 units/ml Vial (Levemir) SC SCH (21:49)
[2016-09-01 07:44] LABS: ADD MANUAL DIFF? NO
[2016-09-01 07:51] LABS: BASO # 0.02 K/mm3 (0.0-2.0); BASO % 0.5 % (0.0-3.0); EOS # 0.1 (0.0-0.7); EOS % 3.3 % (1.5-5.0); GRAN # 2.24 (1.4-6.5); GRAN % 52.2 % (50.0-68.0); HEMATOCRIT 31.5 % (36.0-48.0); LYMPH # 1.7 (1.2-3.4); LYMPH % 40.3 % (22.0-35.0); MEAN CELL VOLUME 84.7 fL (80.0-105.0); MEAN CORPUSCULAR HEMOGLOBIN 28.8 pg (25.0-35.0); MONO # 0.2 (0.1-0.6); MONO % 3.7 % (1.0-6.0); PLATELET COUNT 191 10^3/uL (120.0-450.0); RED CELL DISTRIBUTION WIDTH 13.3 % (11.5-14.5); WHITE BLOOD COUNT 4.3 10^3/ul (4.5-11.0)
[2016-09-01 08:05] LABS: ALB/GLOB RATIO 0.9 (1.1-1.8); ALKALINE PHOSPHATASE 112 U/L (38-133); ALT/SGPT 22 U/L (7-56); AST/SGOT 28 U/L (15-39); BILIRUBIN,TOTAL 0.5 mg/dL (0.2-1.3); BLOOD UREA NITROGEN 13 mg/dL (7-21); CALCIUM 8.7 mg/dL (8.4-10.5); CARBON DIOXIDE 24 mmol/L (21-33); CHLORIDE 102 mmol/L (95-110); GFR AFRICAN-AMERICAN > 60; POTASSIUM 4.6 mmol/L (3.6-5.0); SODIUM 134 mmol/L (132-148)
[2016-09-01] MEDS: Insulin Lispro 1 UNITS/0.01 ML SC SCH ×3 (08:07→16:46)
[2016-09-01] MEDS: Insulin Lispro (humaLOG) LOW Coverage SC SCH ×4 (08:10→21:43)
[2016-09-01 08:28] LABS: GLUCOSE,RANDOM 343 mg/dL (70-110)
[2016-09-01] MEDS: Potassium Chloride 20 MEQ in Sodium Chloride 0.45% 1,000 ML IV SCH (09:11)
--- NOTE | 2016-09-01 10:03 | PN ---
DATE: 09/01/2016 SUBJECTIVE: The patient is out of bed, in a chair, in no acute distress. There is no chest pain or shortness of breath. OBJECTIVE: VITAL SIGNS: Blood pressure 185/78, temperature 98.5, pulse 65, respiratory rate 20. LUNGS: Clear. HEART: Regular rate and rhythm. ABDOMEN: Soft, nontender, bowel sounds normoactive. EXTREMITIES: Without cyanosis, clubbing, or edema. NEUROLOGIC: The patient is awake and alert without focal, sensory or motor deficits. SKIN: Warm and dry. LABORATORY DATA: WBCs 4.3, hemoglobin 10.7, hematocrit 31.5. Sodium 134, potassium 4.6, chloride 10 2, CO2 24, BUN 13, creatinine 0.8, glucose 343. IMPRESSION: 1. Diabetic ketoacidosis/dehydration, improved. 2. Chronic obstructive pulmonary disease. 3. Hypertension. PLAN: We will discontinue IV fluids. We will start lisinopril 5 mg daily for elevated blood pressur e. Continue endocrinology followup with Dr. Carrillo for adjustments of insulin. Physical therapy evalua tion and treatment. Social work for discharge planning. Socrates Padilla JD, MD cc: [phone] TT: 09/01/2016 10:03:13 Confirmation # [id number] Dictation # [id number] en
--- NOTE | 2016-09-01 15:20 | PN ---
DATE: 09/01/2016 ROOM: 271 This is a 61-year-old female with recent uncontrolled type 2 insulin-requiring diabetes, presenting h ere with diabetic ketoacidosis and dehydration and is now being followed closely for metabolic manage ment. She received intensive insulin therapy with an insulin drip infusion and also vigorous IV hydr ation as given and has improved remarkably as noted. However, she continues to have hyperglycemic ac celerations as noted overnight. Her latest glucose levels have ranged from 217-336 mg/dL. Her latest chemistries include a BUN of 13 , sodium 134, potassium 4.6, chloride 102, CO2 24, glucose 343 and creatinine 0.8. So at this time, we will modify her current basal and bolus insulin regimen and increase the Humalog to 24 units subQ t.i.d. before meals as ordered. We will also continue the Levemir given as basal in sulin at 50 units subQ at bedtime daily as ordered. We will discontinue all the IV hydration at this time, especially that the IVs contained dextrose infusion as noted. We will obtain serial chemistri es and supplement accordingly as needed. We will follow. Polly Carrillo MD cc: [phone] TT: 09/01/2016 15:19:51 Confirmation # [id number] Dictation # [id number] en
[2016-09-01] MEDS: Insulin Detemir 100 units/ml Vial (Levemir) SC SCH (21:34)
[2016-09-02 05:55] VITALS: O2SAT 100
[2016-09-02] MEDS: Insulin Lispro 1 UNITS/0.01 ML SC SCH ×2 (08:06→12:53)
[2016-09-02] MEDS: Insulin Lispro (humaLOG) LOW Coverage SC SCH ×2 (08:07→12:53)
[2016-09-02 12:56] VITALS: BP 120/71; RESP 19; TEMP 98.1
[2016-09-02 16:04] VITALS: PULSE 99
--- NOTE | 2016-09-02 19:47 | PN ---
DATE: 09/02/2016 ROOM 271 This is a 61-year-old female with recent uncontrolled type 2 insulin-requiring diabetes, presenting h ere with diabetic ketoacidosis and dehydration, and continues to hyperglycemic accelerations despite a very hefty insulin dose regimen given as noted. Her latest glucose values have ranged from 139-171 and 434 mg/dL. Her latest chemistry showed a BUN of 13, sodium 134, potassium 4.6, chloride 102, CO2 of 24, glucose 343, and creatinine 0.8. Since she had a normal glucose values last night the nursing staff held the bedtime basal insulin, with expected hyperglycemic accelerations this morning as noted. To allow fo r dose equilibration will continue the same basal and bolus insulin regimen as given, with Levemir gi juan as 50 units subQ at bedtime daily as ordered. Will also continue the Humalog given as 24 units s ubQ t.i.d. before meals as ordered. Will titrate incrementally as indicated to optimize metabolic co ntrol. Will also continue the low-dose correction scale using Humalog insulin as given. Will follow and advise accordingly. Polly Carrillo MD cc: [phone] TT: 09/02/2016 19:47:05 Confirmation # [id number] Dictation # [id number] jn
--- NOTE | 2016-09-02 21:29 | DS ---
HOSPITAL COURSE: The patient is a 61-year-old female, admitted through the Emergency Department, on 08/28/2016, with diabetic ketoacidosis. The patient was admitted to the intensive care unit. She rec eived IV insulin, as well as vigorous hydration with saline. She was seen in consultation by endocjessica khourylogkaran, Dr. Carrillo. She was eventually taken off the insulin drip and IV fluids and has had an uneventf ul course, status post transfer to the medical/surgical unit. The patient denies any chest pain, kim rtness of breath. She feels well and is medically stable for discharge. PHYSICAL EXAMINATION: VITAL SIGNS: Blood pressure 120/70, pulse 100, temperature 98.1, respiratory rate 19. LUNGS: Clear. HEART: Regular rate and rhythm. ABDOMEN: Soft, nontender, bowel sounds are normoactive. EXTREMITIES: Without cyanosis, clubbing, or edema. NEUROLOGIC: The patient is awake and oriented, without focal, sensory, or motor deficits. SKIN: Warm and dry. IMPRESSION: 1. Diabetic ketoacidosis. 2. Chronic obstructive pulmonary disease. 3. Hypertension. PLAN: The patient will be discharged to home on the following medications, Zestril 5 mg daily, insul in lispro 24 units subcutaneous with meals, and Levemir 50 mg at bedtime. She will be maintained on a consistent carbohydrate diet. The patient will be seen in the next 1-2 weeks as an outpatient in m office and with her counsel. Activities ad libitum. Socrates Padilla JD, MD cc: [phone] TT: 09/02/2016 21:28:50 ln
== END 2016-09-02 17:30 | disposition home health service (06) | DRG 638 ==
LOC: ED 06:46 → ERH 08:21 → CCU 10:42 → 2RSO 08-30 06:41
PROVIDERS: ADMIT Internal Medicine; ATTEND Internal Medicine
DX: E13.10 Other specified diabetes mellitus with ketoacidosis without coma (principal); E87.1 Hypo-osmolality and hyponatremia; N17.9 Acute kidney failure, unspecified; I69.354 Hemiplegia and hemiparesis following cerebral infarction affecting left non-dominant side; I11.0 Hypertensive heart disease with heart failure; I50.9 Heart failure, unspecified; E87.5 Hyperkalemia; J44.9 Chronic obstructive pulmonary disease, unspecified; F31.9 Bipolar disorder, unspecified; E78.5 Hyperlipidemia, unspecified; E86.0 Dehydration; Z79.4 Long term (current) use of insulin; Z79.02 Long term (current) use of antithrombotics/antiplatelets; Z90.710 Acquired absence of both cervix and uterus; Z90.49 Acquired absence of other specified parts of digestive tract; Z82.49 Family history of ischemic heart disease and other diseases of the circulatory system; Z83.3 Family history of diabetes mellitus

== ENCOUNTER 2016-09-09 11:27 | Inpatient (IN) | payer MEDICARE, MEDICAID, OTHER ==
[2016-09-09 11:34] VITALS: BMI 31.7
[2016-09-09] MEDS ORDERED: Sodium Chloride 0.9% 2,000 ML IV STA (11:53)
[2016-09-09] MEDS ORDERED: Insulin Regular 1 UNITS/0.01 ML ML IV STA (11:55)
--- NOTE | 2016-09-09 12:04 | ED PDOC ---
Arrival/HPI <Karyn Gandhi - Last Filed: 09/09/16 15:35> - History of Present Illness Time/Duration: Prior to Arrival, 1-3 hours Severity Level: Moderate <Hans Vrema - Last Filed: 09/09/16 16:13> - General Chief Complaint: Abnormal Labs Time Seen by Provider: 09/09/16 11:29 - History of Present Illness Narrative History of Present Illness (Text): 09/09/16 12:01 This is a 61 year old female with a past medical history that includes diabetes , hypertension, and CVA presents to the emergency department with elevated blood sugar. The patient's home nurse took her sugar and it read "high" on the glucometer. She called EMS and the patient was brought to the ED. The patient was seen on 08/28/16 for DKA. Patient is alert and oriented to person to place but not to time. Sister is present at bedside. Sister reports that the patient only took her insulin 1 time yesterday. Patient was given "2 shots of insulin" dose unknown prior to EMS arrival. Sugar on admission to ED >500. Patient is unable to provide further history. 09/09/16 12:05 (Hans Verma) Past Medical History <Karyn Gandhi - Last Filed: 09/09/16 15:35> - Provider Review Nursing Documentation Reviewed: Yes - Travel History Have you recently traveled outside [place] w/in the past 3 mons?: No - Infectious Disease Hx of Infectious Diseases: None - Tetanus Immunization Tetanus Immunization: Unknown - Cardiac Hx Congestive Heart Failure: Yes Hx Hypertension: Yes - Pulmonary Hx Chronic Obstructive Pulmonary Disease (COPD): Yes - Neurological HX Cerebrovascular Accident: Yes (L hemiparesis) - Endocrine/Metabolic Hx Diabetes Mellitus Type 2: Yes - Hematological/Oncological Hx Blood Disorders: No - Integumentary Hx Dermatological Disorder: No - Musculoskeletal/Rheumatological Hx Falls: Yes - Gastrointestinal Hx Gastrointestinal Disorders: No - Genitourinary/Gynecological Hx Genitourinary Disorders: No - Psychiatric Hx Psychophysiologic Disorder: Yes Hx Substance Use: No Other/Comment: PREVOUSLY ON STELAZINE - Surgical History Hx Cholecystectomy: Yes Hx Hysterectomy: Yes Hx Orthopedic Surgery: Yes (NECK, L LEG) - Anesthesia Hx Anesthesia: Yes Hx Anesthesia Reactions: No Hx Malignant Hyperthermia: No <Hans Verma - Last Filed: 09/09/16 16:13> - Patient History Narrative Patient History: This is a 61 year old female with a past medical history that includes diabetes , hypertension, and CVA (Hans Verma) Family/Social History - Physician Review Nursing Documentation Reviewed: Yes Family/Social History: No Known Family HX Smoking Status: Never Smoked Hx Alcohol Use: No Hx Substance Use: No <Hans Verma - Last Filed: 09/09/16 16:13> Allergies/Home Meds <Karyn Gandhi - Last Filed: 09/09/16 15:35> <Hans Verma - Last Filed: 09/09/16 16:13> Allergies/Adverse Reactions: Allergies aspirin Allergy (Verified 09/09/16 14:50) SWELLING diphenhydramine HCl [From Benadryl] Allergy (Verified 09/09/16 14:50) DIZZINESS NSAIDS (Non-Steroidal Anti-Inflamma Allergy (Verified 09/09/16 14:50) SWELLING trifluoperazine Allergy (Verified 09/09/16 14:50) DIZZINESS Home Medications: Home Meds Medication Instructions Recorded Confirmed Carvedilol [Coreg] 25 mg PO BID 03/27/15 08/28/16 Clopidogrel [Plavix] 75 mg PO DAILY 03/27/15 08/28/16 Gabapentin [Gabapentin] 100 mg PO TID 03/27/15 08/28/16 Losartan [Cozaar] 50 mg PO DAILY 03/27/15 08/28/16 Topiramate [Topamax] 150 mg PO HS 03/27/15 08/28/16 Venlafaxine Hydrochloride 75 mg PO TID 03/27/15 09/30/15 [Venlafaxine HCl Xr] Insulin Detemir [Levemir] 48 unit SC HS 09/09/16 09/09/16 Review of Systems - Physician Review All systems were reviewed & negative as marked: Yes - Review of Systems Constitutional: absent: Fatigue, Fevers Eyes: absent: Vision Changes, Photophobia ENT: absent: Hearing Changes, Tinnitus Respiratory: absent: SOB, Cough Cardiovascular: absent: Chest Pain, Palpitations Gastrointestinal: absent: Abdominal Pain, Nausea, Vomiting Genitourinary Female: absent: Dysuria, Frequency Musculoskeletal: absent: Arthralgias, Back Pain Skin: absent: Rash, Pruritis Neurological: absent: Headache, Dizziness, Facial Droop Endocrine: Polyuria. absent: Diaphoresis Hemo/Lymphatic: absent: Adenopathy Psychiatric: absent: Anxiety <Hans Verma - Last Filed: 09/09/16 16:13> Physical Exam Vital Signs Reviewed: Yes Temperature: Afebrile Blood Pressure: Normal Pulse: Regular Respiratory Rate: Normal Appearance: Positive for: Well-Appearing, Non-Toxic, Comfortable Pain Distress: None Mental Status: No: Alert and Oriented X 3 (A&O x 2) Finger Stick Blood Glucose: 500 - Systems Exam Head: Present: Atraumatic, Normocephalic Pupils: Present: PERRL Extroacular Muscles: Present: EOMI Conjunctiva: Present: Normal Mouth: Present: Dry. No: Moist Mucous Membranes, Drooling Neck: Present: Normal Range of Motion. No: Lymphadenopathy Respiratory/Chest: Present: Clear to Auscultation, Good Air Exchange. No: Respiratory Distress, Accessory Muscle Use Cardiovascular: Present: Regular Rate and Rhythm, Normal S1, S2. No: Murmurs Abdomen: Present: Normal Bowel Sounds. No: Tenderness, Distention, Peritoneal Signs Upper Extremity: Present: Normal Inspection. No: Cyanosis, Edema Lower Extremity: Present: Normal Inspection. No: Edema Neurological: Present: CN II-XII Intact, Speech Normal Skin: Present: Warm, Dry, Normal Color. No: Rashes Psychiatric: Present: Alert. No: Oriented x 3 <Hans Verma - Last Filed: 09/09/16 16:13> Vital Signs Temp Pulse Resp BP Pulse Ox 09/09/16 15:14 96 H 18 129/79 98 09/09/16 13:43 92 H 18 153/80 H 97 09/09/16 11:54 98.3 F 90 16 140/65 98 Medical Decision Making <Karyn Gandhi - Last Filed: 09/09/16 15:35> Reassessment Condition: Re-examined, Improved - Lab Interpretations I have reviewed the lab results: Yes Interpretation: Abnormal lab values - EKG Interpretation Interpreted by ED Physician: Yes Type: 12 lead EKG <Hans Verma - Last Filed: 09/09/16 16:13> ED Course and Treatment: 09/09/16 12:28 Patient is 61 y.o. female with poorly controlled diabetes sent her for elevated glucose but is otherwise asymptomatic. Will check labs, give IVF, insulin, and reassess. 09/09/16 15:35 Patient in DKA - will need to be admitted - disussed w/ Dr. Padilla. 09/09/16 15:36 Critical care attending consulted - patient's AG has closed, so she does not need an insulin drip at this time - will admit to med surg. (Karyn Gandhi) 09/09/16 12:12 Impression: This is a 61 year old female with a past medical history that includes diabetes , hypertension, and CVA presents to the emergency department with elevated blood sugar. The patient appears comfortable and in no acute distress. Patient is unaware of her elevated sugar. Differential: DKA Hyperglycemia Medication non-compliance Plan: IV Insulin 10u 2L NS Bolus CBC, CMP, Mag, Phos Prior Visits: 08/28/16- DKA 06/11/11- Seizure disorder Progress Notes: Patient seen and examined at the bedside. The patient is in no acute distress. Finger-stick on admission is >500. Patient will be started on 2L NS bolus and given 10u of IV regular insulin. The patient is pending laboratory evaluation. 09/09/16 14:13 Patient s/p 2 Liters of NS. Anion gap 20. Patient s/p 10u IV insulin. 3rd liter of NS running at a bolus rate. Dr. Padilla, the patient's PMD, called. He will accept the admission to his service. Dr. Trujillo (intensive) called for consultation. Case discussed in detail over the phone. He will evaluate the patient for critical care admission. 09/09/16 16:10 Repeat BMP shows closed anion gap. patient was seen and evaluated by ICU attending. Patient was deemed safe for regular medical floor admission. Patient will be admitted for observation. Patient agreeable with the plan. Patient admitted for observation. (Hans Verma) - Lab Interpretations Lab Results: 09/09/16 12:48 09/09/16 15:00 Lab Results 09/09/16 15:00: Sodium 133, Potassium 3.8, Chloride 102, Carbon Dioxide 20 L, Anion Gap 15, BUN 20, Creatinine 1.0, Est GFR ( Amer) > 60, Est GFR (Non- Af Amer) 56, Random Glucose 290 H, Calcium 7.7 L 09/09/16 13:30: Urine Color Yellow, Urine Appearance Clear, Urine pH 6.0, Ur Specific Fabius 1.010, Urine Protein Negative, Urine Glucose (UA) >=1000, Urine Ketones 40 H, Urine Blood Negative, Urine Nitrate Negative, Urine Bilirubin Negative, Urine Urobilinogen 0.2, Ur Leukocyte Esterase Negative 09/09/16 13:23: POC Glucose (mg/dL) 403 H* 09/09/16 12:48: WBC 6.6 D, RBC 3.72, Hgb 10.9 L, Hct 33.7 L, MCV 90.6, MCH 29.3 , MCHC 32.3, RDW 14.1, Plt Count 268, MPV 9.8, Gran % 74.7 H, Lymph % (Auto) 20.9 L, [facility] % (Auto) 3.9, Eos % (Auto) 0.3 L, Baso % (Auto) 0.2, Gran # 4.93, Lymph # 1.4, [facility] # 0.3, Eos # 0.0, Baso # 0.01, Sodium 128 L, Potassium 4.6, Chloride 92 L, Carbon Dioxide 16 L, Anion Gap 25 H, BUN 24 H, Creatinine 1.3, Est GFR ( Amer) 50, Est GFR (Non-Af Amer) 41, Random Glucose 618 H* D, Calcium 8.9, Magnesium 2.3 H, Total Bilirubin 0.7, AST 27, ALT 30, Alkaline Phosphatase 124, Total Protein 7.9, Albumin 4.0, Globulin 3.9, Albumin/Globulin Ratio 1.0 L - EKG Interpretation EKG Interpretation (Text): 09/09/16 16:11 NSR, no gross ST or T wave changes (Hans Verma) - Medication Orders Current Medication Orders: Discontinued Medications Sodium Chloride (Sodium Chloride 0.9%) 2,000 mls @ 999 mls/hr IV .Q2H1M STA Stop: 09/09/16 13:53 Last Admin: 09/09/16 11:56 Dose: 999 MLS/HR eMAR Start Stop Document 09/09/16 11:56 SRE (Rec: 09/09/16 11:57 SRE [id number]) Intravenous Solution Start Date 09/09/16 Start Time 11:56 End Date 09/09/16 End time 13:00 Total Infusion Time 64 Sodium Chloride (Sodium Chloride 0.9%) 1,000 mls @ 999 mls/hr IV .Q1H1M STA Stop: 09/09/16 14:49 Last Admin: 09/09/16 14:47 Dose: 999 mls/hr Insulin Human Regular (Humulin R) 10 units IV ONCE STA Stop: 09/09/16 11:56 Last Admin: 09/09/16 12:08 Dose: 10 UNITS Subcutaneous Admin in ER Document 09/09/16 12:08 SRE (Rec: 09/09/16 12:09 SRE [id number]) Injection Site MAR Injection Site Right Arm eMAR Start Stop Document 09/09/16 12:08 SRE (Rec: 09/09/16 12:09 SRE [id number]) Intravenous Solution Start Date 09/09/16 Start Time 12:08 End Date 09/09/16 End time 12:09 Total Infusion Time 1 - PA / [employer] MATE / Resident Statement ERICKA has reviewed & agrees with the documentation as recorded. ERICKA has examined the patient and agrees with the treatment plan. <Karyn Gandhi - Last Filed: 09/09/16 15:35> Disposition/Present on Arrival <Karyn Gandhi - Last Filed: 09/09/16 15:35> - Present on Arrival Any Indicators Present on Arrival: Yes History of DVT/PE: No History of Uncontrolled Diabetes: Yes Urinary Catheter: No History of Decub. Ulcer: No History Surgical Site Infection Following: None - Disposition Have Diagnosis and Disposition been Completed?: Yes Disposition Time: 14:00 Patient Plan: Admission, Observation <Hans Verma - Last Filed: 09/09/16 16:13> - Disposition Diagnosis: DKA (diabetic ketoacidoses) Disposition: HOSPITALIZED Patient Problems: Current Active Problems Problem Status Diagnosed DKA (diabetic ketoacidoses) Acute Condition: FAIR
[2016-09-09 12:49] LABS: ADD MANUAL DIFF? NO
[2016-09-09 12:54] LABS: BASO # 0.01 K/mm3 (0.0-2.0); BASO % 0.2 % (0.0-3.0); EOS % 0.3 % (1.5-5.0); GRAN # 4.93 (1.4-6.5); GRAN % 74.7 % (50.0-68.0); HEMATOCRIT 33.7 % (36.0-48.0); LYMPH # 1.4 (1.2-3.4); LYMPH % 20.9 % (22.0-35.0); MEAN CELL VOLUME 90.6 fL (80.0-105.0); MEAN CORPUSCULAR HEMOGLOBIN 29.3 pg (25.0-35.0); MEAN CORPUSCULAR HGB CONC 32.3 g/dl (31.0-37.0); MEAN PLATELET VOLUME 9.8 fl (7.0-11.0); MONO # 0.3 (0.1-0.6); MONO % 3.9 % (1.0-6.0); PLATELET COUNT 268 10^3/uL (120.0-450.0); RED CELL DISTRIBUTION WIDTH 14.1 % (11.5-14.5); WHITE BLOOD COUNT 6.6 10^3/ul (4.5-11.0)
[2016-09-09 13:03] LABS: BILIRUBIN,TOTAL 0.7 mg/dL (0.2-1.3); CALCIUM 8.9 mg/dL (8.4-10.5); MAGNESIUM 2.3 mg/dL (1.7-2.2); POTASSIUM 4.6 mmol/L (3.6-5.0); TOTAL PROTEIN 7.9 g/dL (5.8-8.3)
[2016-09-09] MEDS ORDERED: Sodium Chloride 0.9% 1,000 ML IV STA (13:49)
[2016-09-09 13:53] LABS: URINE BILIRUBIN NEGATIVE (NEGATIVE); URINE BLOOD NEGATIVE (NEGATIVE); URINE GLUCOSE (UA) >=1000 mg/dL (NEGATIVE); URINE KETONE 40 mg/dL (NEGATIVE); URINE LEUKOCYTE ESTERASE NEGATIVE Leu/uL (NEGATIVE); URINE PROTEIN NEGATIVE mg/dL (<30 mg/dL); URINE UROBILINOGEN 0.2 E.U./dL (<1 E.U./dL)
[2016-09-09 13:54] LABS: URINE APPEARANCE CLEAR (CLEAR); URINE COLOR YELLOW (YELLOW)
[2016-09-09 15:12] LABS: BLOOD UREA NITROGEN 20 mg/dL (7-21); CALCIUM 7.7 mg/dL (8.4-10.5); CARBON DIOXIDE 20 mmol/L (21-33); CHLORIDE 102 mmol/L (98-107); GFR AFRICAN-AMERICAN > 60; GLUCOSE,RANDOM 290 mg/dL (70-110); POTASSIUM 3.8 mmol/L (3.6-5.0); SODIUM 133 mmol/L (132-148)
--- NOTE | 2016-09-09 15:55 | CP.PCM.CON ---
<Milagros Mcneil - Last Filed: 09/09/16 15:55> History of Present Illness - History of Present Illness History of Present Illness: Icu consult This is a 61 year old female with a past medical history that includes diabetes , hypertension, and CVA presents to the emergency department with elevated blood sugar. The patient's home nurse took her sugar and it read "high" on the glucometer. She called EMS and the patient was brought to the ED. The patient was seen on 08/28/16 for DKA and was admitted to ICU for Insulin drip. Patient is alert and oriented. Sister reports that the patient only took her insulin 1 time yesterday. Patient was given "2 shots of insulin" dose unknown prior to EMS arrival. Sugar on admission to ED >500. Pt reports that she takes insulin 3 times a day. Pt administers insulin herself. Pt denies F/C/N/V/D/Cp/SOB/RUIZ/ Abd pain/dysuria/polyuria/polydipsia/vision changes. UA shows Ketone. On arrival her anion gap was 20 with glucose of 618. She was given insulin and IVF. repeat BMP shows normal anion gap and and glucose 290. Review of Systems - Review of Systems Review of Systems: See HPI Past Patient History - Infectious Disease Hx of Infectious Diseases: None - Tetanus Immunizations Tetanus Immunization: Unknown - Past Social History Smoking Status: Never Smoked - CARDIAC Hx Congestive Heart Failure: Yes Hx Hypertension: Yes - PULMONARY Hx Chronic Obstructive Pulmonary Disease (COPD): Yes - NEUROLOGICAL HX Cerebrovascular Accident: Yes (L hemiparesis) - ENDOCRINE/METABOLIC Hx Diabetes Mellitus Type 2: Yes - HEMATOLOGICAL/ONCOLOGICAL Hx Blood Disorders: No - INTEGUMENTARY Hx Dermatological Problems: No - MUSCULOSKELETAL/RHEUMATOLOGICAL Hx Falls: Yes - GASTROINTESTINAL Hx Gastrointestinal Disorders: No - GENITOURINARY/GYNECOLOGICAL Hx Genitourinary Disorders: No - PSYCHIATRIC Hx Psychophysiologic Disorder: Yes Hx Substance Use: No Other/Comment: PREVOUSLY ON STELAZINE - SURGICAL HISTORY Hx Cholecystectomy: Yes Hx Hysterectomy: Yes Hx Orthopedic Surgery: Yes (NECK, L LEG) - ANESTHESIA Hx Anesthesia: Yes Hx Anesthesia Reactions: No Hx Malignant Hyperthermia: No Meds Allergies/Adverse Reactions: Allergies Allergy/AdvReac Type Severity Reaction Status Date / Time aspirin Allergy SWELLING Verified 09/09/16 14:50 diphenhydramine HCl Allergy DIZZINESS Verified 09/09/16 14:50 [From Benadryl] NSAIDS (Non-Steroidal Allergy SWELLING Verified 09/09/16 14:50 Anti-Inflamma trifluoperazine Allergy DIZZINESS Verified 09/09/16 14:50 Physical Exam - Constitutional Appears: No Acute Distress - Head Exam Head Exam: ATRAUMATIC, NORMAL INSPECTION, NORMOCEPHALIC - Eye Exam Eye Exam: EOMI, PERRL Pupil Exam: NORMAL ACCOMODATION, PERRL - ENT Exam ENT Exam: Mucous Membranes Moist, Normal Exam - Neck Exam Neck exam: Positive for: Normal Inspection - Respiratory Exam Respiratory Exam: Clear to Auscultation Bilateral, NORMAL BREATHING PATTERN. absent: Accessory Muscle Use, Respiratory Distress - Cardiovascular Exam Cardiovascular Exam: REGULAR RHYTHM, +S1, +S2 - GI/Abdominal Exam GI & Abdominal Exam: Soft. absent: Distended, Firm, Guarding, Hernia, Tenderness - Extremities Exam Extremities exam: Positive for: normal inspection - Back Exam Back exam: NORMAL INSPECTION - Neurological Exam Neurological exam: Alert, CN II-XII Intact, Oriented x3, Reflexes Normal - Psychiatric Exam Psychiatric exam: Normal Affect, Normal Mood - Skin Skin Exam: Dry, Normal Color, Warm Results - Vital Signs Recent Vital Signs: Last Vital Signs Temp 98.3 F 09/09/16 11:54 Pulse 96 H 09/09/16 15:14 Resp 18 09/09/16 15:14 BP 129/79 09/09/16 15:14 Pulse Ox 98 09/09/16 15:14 - Labs Result Diagrams: 09/09/16 12:48 09/09/16 15:00 Labs: Laboratory Results - last 24 hr 09/09/16 15:00 Sodium 133 Potassium 3.8 Chloride 102 Carbon Dioxide 20 L Anion Gap 15 BUN 20 Creatinine 1.0 Est GFR ( Amer) > 60 Est GFR (Non-Af Amer) 56 Random Glucose 290 H Calcium 7.7 L Assessment & Plan - Assessment and Plan (Free Text) Assessment: 61 yo F w h/o COPD, HTN, DM1m CVA with L hemiparesis, bipolar disorder came with hypergylcemia Plan: Neuro: AAOx3, NAD. Continue to monitor mental status CV: HD stable Pulm: No acute issues. Saturating well on room air. Continue to monitor GI: GI ppx Diabetic diet Renal: monitor renal function, I&Os Endo: DKA resolved. Anion gap closed. A1c 12.0 Endo consult SSI ID: No signs of infection. Afebrile, WBC 6.6. Heme: no signs of bleeding. Continue to monitor DVT/GI ppx: SQH, Protonix Dispo: admit to telemetry/ medsurg Doesn't need ICU management DW ICU attending <Cassandra MCCLELLAN,Emily H - Last Filed: 09/09/16 17:14> Results - Vital Signs Recent Vital Signs: Last Vital Signs Temp 98.3 F 09/09/16 11:54 Pulse 96 H 09/09/16 15:14 Resp 18 09/09/16 15:14 BP 129/79 09/09/16 15:14 Pulse Ox 98 09/09/16 15:14 - Labs Result Diagrams: 09/09/16 12:48 09/09/16 15:00 Attending/Attestation - Attestation I have personally seen and examined this patient.: Yes I have fully participated in the care of the patient.: Yes I have reviewed all pertinent clinical information: Yes Notes (Text): 09/09/16 17:12 61 y/o F w/ hx of Dm recently admitted to ICU came to [facility] with elevated Blood sugars. In the ER originaly found to have AG met acidosis . After hydration and 10 units Insulin , repeat BMP showed resolution of AG and better control of the blood sugars. Will need to consult Dr. Carrillo and follow out her orders for Insulin . No new signs of infection, ACS or AMS. Labs reviewed . Pt aao x 3. Without any complaints. Will need BMP q 4 hrs. keep BS 140-180 Continue with IV hydration 125ml /hr N.S cc time 45 min
[2016-09-09] MEDS ORDERED: Pneumococcal 23-Valent Vaccine IM ONE (17:14)
[2016-09-09] MEDS ORDERED: Influenza Vaccine 45 MCG/0.5 ml IM ONE (17:14)
[2016-09-09 17:38] LABS: BLOOD UREA NITROGEN 19 mg/dL (7-21); CALCIUM 7.9 mg/dL (8.4-10.5); CARBON DIOXIDE 21 mmol/L (21-33); CHLORIDE 101 mmol/L (98-107); GFR AFRICAN-AMERICAN > 60; GLUCOSE,RANDOM 262 mg/dL (70-110); SODIUM 132 mmol/L (132-148)
[2016-09-09] MEDS ORDERED: Insulin Reg-MEDIUM-Coverage SC SCH (22:00)
[2016-09-09] MEDS ORDERED: Insulin Detemir 100 units/ml Vial (Levemir) SC SCH (22:00)
[2016-09-09] MEDS: Insulin Lispro (humaLOG) LOW Coverage SC SCH (22:45)
[2016-09-10 06:58] LABS: ADD MANUAL DIFF? NO
[2016-09-10 07:08] LABS: BASO # 0.05 K/mm3 (0.0-2.0); BASO % 0.9 % (0.0-3.0); EOS # 0.1 (0.0-0.7); EOS % 2.3 % (1.5-5.0); GRAN # 2.26 (1.4-6.5); GRAN % 42.7 % (50.0-68.0); HEMATOCRIT 29.7 % (36.0-48.0); LYMPH # 2.4 (1.2-3.4); LYMPH % 44.6 % (22.0-35.0); MEAN CELL VOLUME 87.4 fL (80.0-105.0); MEAN CORPUSCULAR HEMOGLOBIN 29.4 pg (25.0-35.0); MEAN CORPUSCULAR HGB CONC 33.7 g/dl (31.0-37.0); MEAN PLATELET VOLUME 9.2 fl (7.0-11.0); MONO # 0.5 (0.1-0.6); MONO % 9.5 % (1.0-6.0); PLATELET COUNT 253 10^3/uL (120.0-450.0); RED CELL DISTRIBUTION WIDTH 14.1 % (11.5-14.5); WHITE BLOOD COUNT 5.3 10^3/ul (4.5-11.0)
--- NOTE | 2016-09-10 07:09 | CON ---
DATE: 09/09/2016 ROOM: 364. HISTORY OF PRESENT ILLNESS: This is a 61-year-old female with known history of type 2 insulin-requir ing diabetes presenting a week or so ago with diabetic ketoacidosis and dehydration and was discharge d on a basal and bolus insulin regimen as noted. She admits to having persistent hyperglycemic accel erations and glucose levels over 500 and, as per the family member, she apparently has been giving on ly 1 insulin injection daily with nonadherence to her recommended insulin regimen as given. PAST MEDICAL HISTORY: As mentioned above, history of type 2 insulin-requiring diabetes on a basal an d bolus insulin drug combination as discharged more than a week ago. She was on Levemir given as 48 units subQ at bedtime daily and Humalog given as 24 units subQ t.i.d. before meals as given. History of hypertensive cardiovascular disease and dyslipidemia; history of diabetic retinopathy and polyneu ropathy, currently on Neurontin medications; history of underlying diabetic nephropathy with overt pr oteinuria. FAMILY HISTORY: Positive for diabetes and hypertension. SOCIAL HISTORY: The patient has a supportive family. No known substance use. REVIEW OF SYSTEMS: As mentioned above, admits to generalized body weakness with easy fatigability an d tiredness and suboptimal energy level. Also admits to episodic bouts of dizziness and lightheadedn ess, worse on the day of admission. No chest pains or palpitations, but admits to progressive shortn ess of breath, especially on exertion. Her oral intake has been variable and suboptimal with nausea, dyspepsia and episodic vomiting episodes. Also, admits to marked polyuria, nocturia and polydipsia as noted. PHYSICAL EXAMINATION: GENERAL: This is an overweight female in no apparent distress. VITAL SIGNS: Blood pressure of 140/80, pulse of 70 beats per minute and regular, temperature 98, res pirations 20, height is 5 feet 8, weight is 209 pounds. HEENT: Head normocephalic. Eyes anicteric with pink conjunctivae. Fundoscopy not possible at this time. Ears, nose and throat otherwise normal. NECK: Supple. Thyroid gland is normal size. No carotid bruits or cervical adenopathy. CARDIOPULMONARY: There is an adynamic precordium. S1, S2 is rapid and regular. LUNGS: Show scattered rhonchi. ABDOMEN: Flat, soft with positive bowel sounds. EXTREMITIES: No peripheral edema. Pulses are +2 bilaterally. LABORATORY DATA: The initial chemistry showed a BUN of 24, sodium 128, potassium 4.6, chloride 92, C O2 16, glucose is 618 and creatinine is 1.3. The subsequent glucose levels have ranged from 277-290 and 403 mg/dL. ASSESSMENT: This is a 61-year-old female with uncontrolled and decompensated type 2 insulin-requirin g diabetes, presenting here with diabetic ketoacidosis and dehydration with spurious hyponatremia and is now being referred for metabolic evaluation and management. She also has diabetic microvascular complications of retinopathy, polyneuropathy, and nephropathy as mentioned. She has also significant history of coronary artery disease with peripheral arterial disease and vasculopathy. PLAN OF MANAGEMENT: As discussed with the patient and staff, will start her right away on a more phy siologic basal and bolus insulin drug combination as ordered. Will start her on Levemir given as 20 units subQ at bedtime daily to start tonight. Will also add Humalog given as 8 units subQ t.i.d. bef ore meals to start at breakfast time tomorrow. Will modify the coverage scale to obviate hypoglycemi a and detailed orders have been given. Will reinforce diabetic education and dietary instructions at the time of this admission. Will recall and reconsult our diabetic nurse educator to reinforce insu bharati self-administration and especially the adherence to her insulin regimen as noted. Will follow. Polly Carrillo MD cc: [id number] TT: 09/10/2016 07:08:58 Confirmation # [id number] Dictation # [id number] mn
[2016-09-10 07:12] LABS: ALB/GLOB RATIO 0.9 (1.1-1.8); ALKALINE PHOSPHATASE 87 U/L (38-133); ALT/SGPT 22 U/L (7-56); AST/SGOT 26 U/L (15-39); BILIRUBIN,TOTAL 0.4 mg/dL (0.2-1.3); BLOOD UREA NITROGEN 15 mg/dL (7-21); CALCIUM 7.8 mg/dL (8.4-10.5); CARBON DIOXIDE 23 mmol/L (21-33); CHLORIDE 106 mmol/L (98-107); CHOLESTEROL 161 mg/dL (130-200); GFR AFRICAN-AMERICAN > 60; GLUCOSE,RANDOM 233 mg/dL (70-110); PHOSPHOROUS 2.4 mg/dL (2.5-4.5); POTASSIUM 3.7 mmol/L (3.6-5.0); SODIUM 137 mmol/L (132-148); TOTAL PROTEIN 6.3 g/dL (5.8-8.3)
[2016-09-10] MEDS: Insulin Lispro 1 UNITS/0.01 ML SC SCH ×3 (08:30→17:35)
[2016-09-10] MEDS: Insulin Lispro (humaLOG) LOW Coverage SC SCH ×4 (08:34→22:03)
--- NOTE | 2016-09-10 09:40 | CARD ---
APPROVED REPORT EKG Measurement Heart [id number] <Conclusion> Poor data quality, interpretation may be adversely affected Normal sinus rhythm Possible Anterior infarct, age undetermined Abnormal ECG
--- NOTE | 2016-09-10 11:40 | PN ---
DATE: 09/10/2016 ENDO FOLLOWUP NOTE ROOM: 364. SUBJECTIVE: This is a 61-year-old female with recent uncontrolled type 2 insulin-requiring diabetes, presenting here with marked hyperglycemic accelerations related to drug omission and nonadherence to the recommended insulin regimen prescribed with the recent hospital admission over a week ago. Her glycemic levels are fluctuating, and the latest glucose levels have ranged from 233-277 mg/dL. The latest chemistry showed a BUN of ____, sodium 137, potassium 3.7, chloride 106, CO2 of 23, glucos e 233, and creatinine of 0.9. ASSESSMENT: This is a 61-year-old female with uncontrolled and decompensated type 2 insulin-requirin g diabetes, presenting here with diabetic ketoacidosis, and received intensive insulin therapy and vi gorous IV hydration was given. PLAN OF MANAGEMENT: We will modify her current insulin regimen, and we will increase the basal insul in to Levemir given as 26 units subQ at bedtime daily to start tonight. We will also increase and mo dify the prandial mealtime insulin with Humalog to be given as 8 units subQ t.i.d. starting today as ordered. We will continue the low-dose correction scale using Humalog insulin as given. We will tit rate incrementally as indicated to optimize metabolic control. We will reinforce diabetic education and dietary instructions, especially with the imperative need for adherence to her insulin regimen as given. We will follow. Polly Carrillo MD cc: [id number] TT: 09/10/2016 11:40:10 Confirmation # [id number] Dictation # [id number] thu
[2016-09-10] MEDS: Albuterol-Ipratrop 3 mg / 0.5 (3 ml) UD IH SCH ×2 (13:29→20:13)
--- NOTE | 2016-09-10 14:53 | HP ---
HISTORY OF PRESENT ILLNESS: The patient is a 61-year-old female with a history of type 1 diabetes wh o presents to the Emergency Room with recurrent diabetic ketoacidosis due to noncompliance with insul in regimen. She was seen on a previous admission on 08/28/2016 with Polly Carrillo and started on insulin regimen and was supposed to follow up with her moss picker, Dr. Dalton, but now presents again with recurrent severe hyperglycemia and dehydration. 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 PAST SURGICAL HISTORY: Includes back surgery in 1963, status post lumbar laminectomy and fusion. Th e patient has a history of cholecystectomy and total abdominal hysterectomy and bilateral salpingo-oo phorectomy. ALLERGIES: INCLUDE ASPIRIN, BENADRYL, STELAZINE AND CORTISONE. CURRENT MEDICATIONS: Include Neurontin 100 mg 3 times daily, losartan 50 mg daily, Coreg 25 mg twice daily, venlafaxine ER 75 mg 3 times daily, Plavix 75 mg daily, and Topamax 100 mg q. a.m. and 150 mg q. p.m. as well as lispro insulin. SOCIAL HISTORY: The patient has no history of tobacco, alcohol or drug use. She has a history of bi polar disorder in the past. PHYSICAL EXAMINATION: GENERAL: The patient is a well-developed female in no acute distress. VITAL SIGNS: Blood pressure 137/57, pulse 79, temperature 98.7, respiratory rate 20. HEENT: Head is normocephalic, atraumatic. Pupils equal, round, reactive to light. Extraocular move ments intact. NECK: Supple, with no nuchal rigidity. LUNGS: Clear. HEART: Regular rate and rhythm. ABDOMEN: Soft, nontender. Bowel sounds are normoactive. EXTREMITIES: Without cyanosis, clubbing, or edema. NEUROLOGIC: The patient is awake and responsive without focal sensory or motor deficits. SKIN: Warm and dry. LABORATORY DATA: WBCs 8.3, hemoglobin 10.0, hematocrit 29.7, sodium 137, potassium 3.7, chloride 106 , CO2 23, BUN 12, creatinine 0.9, glucose 233. Hemoglobin A1c is elevated at 12.4. IMPRESSION: 1. Recurrent diabetic ketoacidosis due to noncompliance. 2. Chronic obstructive pulmonary disease. 3. Hypertension. 4. Chronic schizophrenia/bipolar disorder with noncompliance with medications. PLAN: The patient is admitted to the medical/surgical floor. She is receiving IV fluids as well as insulin coverage. Endocrinology consultation, Dr. Carrillo. We will obtain psychiatric consult prior to discharge to see if the patient is competent to follow her insulin regimen. Socrates Padilla JD, MD cc: [phone] TT: 09/10/2016 14:52:58 tn
[2016-09-10] MEDS: Insulin Detemir 100 units/ml Vial (Levemir) SC SCH (22:05)
[2016-09-11] MEDS: Albuterol-Ipratrop 3 mg / 0.5 (3 ml) UD IH SCH ×4 (01:21→19:22)
[2016-09-11] MEDS: Insulin Lispro (humaLOG) LOW Coverage SC SCH ×4 (08:58→21:44)
[2016-09-11] MEDS: Insulin Lispro 1 UNITS/0.01 ML SC SCH ×3 (09:06→18:17)
[2016-09-11 10:22] LABS: ALB/GLOB RATIO 0.9 (1.1-1.8); ALKALINE PHOSPHATASE 80 U/L (38-133); ALT/SGPT 17 U/L (7-56); AST/SGOT 22 U/L (15-39); BILIRUBIN,TOTAL 0.4 mg/dL (0.2-1.3); BLOOD UREA NITROGEN 9 mg/dL (7-21); CALCIUM 8.5 mg/dL (8.4-10.5); CARBON DIOXIDE 25 mmol/L (21-33); CHLORIDE 110 mmol/L (95-110); GFR AFRICAN-AMERICAN > 60; GLUCOSE,RANDOM 110 mg/dL (70-110); POTASSIUM 3.8 mmol/L (3.6-5.0); SODIUM 142 mmol/L (132-148); TOTAL PROTEIN 6.8 g/dL (5.8-8.3)
--- NOTE | 2016-09-11 12:45 | CON ---
DATE: 09/11/2016 HISTORY OF PRESENT ILLNESS: Shortly, the patient is a 61-year-old -Swazi female with not k nown previous psychiatric history, multiple medical issues including diabetes, hypertension, CVA. Th e patient was admitted on the medical floor for diabetic ketoacidosis. Psych consult was involved fo r evaluation of capacity to make decision about her insulin injection. The patient was seen and examined today. The patient presented to be sleepy, but easily arousable. The patient was oriented in time, place, and circumstances. The patient had fair eye contact. The p axel reported that she has diabetes for the past 3-4 years. The patient knows her diagnosis. The patient said that she has diabetes type 1. The patient knows that she needs to be on injectable form of insulin. The patient said that she knows how to make injection. Also, patient reported that she is aware of how to monitor her blood sugar and she has a glucometer at home. The patient also repor kb that she has visiting nurse twice a week. At the same time, patient has home homemaker. The katie ent said for the past week her sugar was uncontrolled and it was around 400-500. The patient said th at she was busy and she did not notify her primary care physician and, moreover, the patient said, "I got sick very fast." The patient was educated in case her sugar is not well controlled she needs to notify her primary care physician and her insulin needs to be adjusted. The patient verbalized unde rstanding. The patient said from now she will definitely do so because she does not want to get sick and she wants to get better. The patient denied feeling depressed. The patient denied thoughts of harming herself or others. The patient denied feeling anxious. The patient reported to have fair ap petite and sleep. PAST PSYCHIATRIC HISTORY: The patient denied history of mental illness. The patient denied history of using drugs. The patient denied history of suicidal attempts. The patient does not have history of being admitted to the psychiatric inpatient unit. SOCIAL HISTORY: The patient lives in [place], moved from [place] about ____ years ago in [place] to live with her sister. At present moment, the patient reported that she has future plans to go b [facility] to [place] because she does not like [place] and she wants to join her son and live the . The patient reported that she still has a house in [place] and she is looking forward to going back there. VITAL SIGNS: Stable. Temperature 98.3, pulse 76, blood pressure 103/54, respirations 20, oxygen sat uration is 96. MENTAL STATUS EXAMINATION: The patient presented to be alert and oriented, pleasant, cooperative. F air eye contact. Speech was slow, low volume, but normal quality and quantity. The patient describe d her mood to be okay. Affect was constricted but reactive, mood congruent. Thought process was coh erent and goal directed. Thought content: The patient denied visual, auditory, or tactile hallucina tions, denied paranoid ideations. The patient denied thoughts of harming herself or others, denied i ntent or plan. Insight and judgment are good. Impulses are well controlled. IMPRESSION: From this sign writer letterer or painter's perspective, the patient does not have any major depressive symptoms. Maybe patient has adjustment issues. The patient moved from [place] ____ years back and has family here and her plan is to go back there. The patient has multiple medical issues including faye betes type 1. The patient has history of hypertension, history of cerebrovascular accident in the [facility]. The patient also has history of poorly controlled diabetes. The patient was diagnosed with diab etic ketoacidosis prior to coming to the medical floor. PLAN: Answering for the question about capacity to make decision about her insulin shot, based on pr esentation patient has factual understanding of diagnosis as well as treatment, potential benefits of taking insulin, consequences without being on insulin. The patient has good insight and appreciatio n. The patient has reasoning ability. The patient was able to indicate her preferences. The patien t wants to continue treatment and wants to continue on insulin. She never refused treatment. From t his sign writer letterer or painter's perspective, the patient has capacity to make decision about insulin injection and dispo sition plan. The patient has a homemaker as well as patient has visiting nurse twice a week. The ronak rivera has a supportive sister. The patient has future oriented plans. From this sign writer letterer or painter's perspectiv e, there is nothing else to be implemented into the patient's services. A lot of education was provi ded - to let know primary care physician and manager of construction in case if the patient's sugar will be n ot well controlled. The patient has to be followed up with manager of construction and primary care physicia n. This sign writer letterer or painter discussed this case with the nurse practitioner. Thank you very much for letting me participate in the care of your patient. Should you have any ques tions, give me a call back. Julia Flores MD cc: [phone] TT: 09/11/2016 11:00:51 Confirmation # [id number] Dictation # [id number] mn
--- NOTE | 2016-09-11 16:55 | PN ---
DATE: 09/11/2016 SUBJECTIVE: The patient is lying in bed. She complains of some shortness of breath and cough. Ther e is no chest pain, no hemoptysis. OBJECTIVE: VITAL SIGNS: Blood pressure 103/54, temperature 98.3, pulse 76, respiratory rate 20. LUNGS: Show coarse crepitations bilaterally with inspiratory wheezing. HEART: Regular rate and rhythm. ABDOMEN: Soft, nontender, bowel sounds are normoactive. EXTREMITIES: Without cyanosis, clubbing, or edema. NEUROLOGIC: The patient is awake and oriented x 3 without focal sensory or motor deficits. SKIN: Warm and dry. LABORATORY DATA: Sodium 142, potassium 3.8, chloride 110, CO2 of 25, BUN 9, creatinine 0.7, glucose 110. IMPRESSION: 1. Exacerbation chronic obstructive pulmonary disease/bronchitis, rule out pneumonia. 2. Recurrent diabetic ketoacidosis, rule out secondary to noncompliance versus underlying lung infec tion. 3. Hypertension. 4. Chronic schizophrenia/bipolar disorder. PLAN: Psychiatric consult is appreciated. We will start empiric IV antibiotics with Rocephin 1 gram q.24 hours and Zithromax 500 mg IV q.24 hours. Continue nebulizer treatments. We will obtain chest x-ray. Continue insulin coverage and endocrinology followup with Dr. Carrillo. Social work for discharg e planning. As per psych, patient is competent to be discharged and follow her insulin regimen. Socrates Padilla JD, MD cc: [phone] TT: 09/11/2016 16:55:00 Confirmation # [id number] Dictation # [id number] sn
[2016-09-11] MEDS: Azithromycin 500MG/NS 250ml 250 ML IVPB SCH (18:21)
[2016-09-11] MEDS: cefTRIAXone 1 gm 100 ML IVPB SCH (18:21)
--- NOTE | 2016-09-11 18:46 | PN ---
DATE: 09/11/2016 ROOM: 364. This is a 61-year-old female with recent uncontrolled type 2 insulin-requiring diabetes, now being fo llowed closely for metabolic management. Her glycemic levels are fluctuating, but much improved at t his time and the latest glucose levels have ranged from 110-233 mg/dL. Her latest chemistries includ e a BUN of 9, sodium 142, potassium 3.8, chloride 110, CO2 of 25, glucose 110 and creatinine 0.7. He r hemoglobin A1c has been reported as 12.4%, clearly indicative of suboptimal metabolic control of he r diabetic condition even prior to this admission. So at this time, will recommend the same basal an d bolus insulin regimen to allow for dose equilibration and keep her on the Levemir given as 26 units subQ at bedtime daily as ordered. Will continue her Humalog given as 8 units subQ t.i.d. before tay ls as given. Will titrate incrementally as indicated to optimize metabolic control. Will recommend a closer follow up with our diabetic nurse educator regarding outpatient diabetic management and then if extremes of glycemic fluctuations supervene, she will notify me for further dose titration or fin e tuning her insulin regimen. Will follow and advise accordingly. Polly Carrillo MD cc: [id number] TT: 09/11/2016 18:45:38 Confirmation # [id number] Dictation # [id number] palak
[2016-09-11] MEDS: Insulin Detemir 100 units/ml Vial (Levemir) SC SCH (21:44)
[2016-09-12] MEDS: Albuterol-Ipratrop 3 mg / 0.5 (3 ml) UD IH SCH ×4 (01:01→20:16)
[2016-09-12 07:04] LABS: ADD MANUAL DIFF? NO
[2016-09-12 07:15] LABS: BASO # 0.01 K/mm3 (0.0-2.0); BASO % 0.2 % (0.0-3.0); EOS # 0.1 (0.0-0.7); EOS % 2.2 % (1.5-5.0); GRAN # 3.32 (1.4-6.5); GRAN % 59.9 % (50.0-68.0); HEMATOCRIT 33.3 % (36.0-48.0); LYMPH # 1.8 (1.2-3.4); LYMPH % 33.2 % (22.0-35.0); MEAN CELL VOLUME 87.4 fL (80.0-105.0); MEAN CORPUSCULAR HEMOGLOBIN 29.7 pg (25.0-35.0); MEAN CORPUSCULAR HGB CONC 33.9 g/dl (31.0-37.0); MEAN PLATELET VOLUME 9.3 fl (7.0-11.0); MONO # 0.3 (0.1-0.6); MONO % 4.5 % (1.0-6.0); PLATELET COUNT 278 10^3/uL (120.0-450.0); RED CELL DISTRIBUTION WIDTH 14.2 % (11.5-14.5); WHITE BLOOD COUNT 5.5 10^3/ul (4.5-11.0)
[2016-09-12 07:33] LABS: ALB/GLOB RATIO 0.8 (1.1-1.8); ALKALINE PHOSPHATASE 93 U/L (38-133); ALT/SGPT 16 U/L (7-56); AST/SGOT 36 U/L (15-39); BILIRUBIN,TOTAL 0.5 mg/dL (0.2-1.3); BLOOD UREA NITROGEN 8 mg/dL (7-21); CALCIUM 8.7 mg/dL (8.4-10.5); CARBON DIOXIDE 28 mmol/L (21-33); CHLORIDE 106 mmol/L (98-107); GFR AFRICAN-AMERICAN > 60; GLUCOSE,RANDOM 172 mg/dL (70-110); POTASSIUM 3.9 mmol/L (3.6-5.0); SODIUM 141 mmol/L (132-148); TOTAL PROTEIN 7.2 g/dL (5.8-8.3)
--- NOTE | 2016-09-12 07:51 | PQF GENQUE ---
This form is a permanent part of the medical record Dr. Padilla, Please clarify, for accuracy, the type of diabetes present in this patient. Documentation notes both type 1 in the H&P and by patient who states she has had diabetes for 3 to 4 years, and type 2 by alarm investigator. Clarification of your documentation is requested to better reflect the severity of illness and intensity of treatment of your patient. Indicators present [] Specify: [] [] Specify: [] [] Specify: [] [] Specify: [] Location in the medical record that reflects the above clinical findings: [] Treatment Provided: [] PHYSICIAN'S RESPONSE Based on your medical judgment of the clinical indicators outlined above please clarify the following: [x] Practitioner response TYPE I Diabetes [] If unable to determine, please check the box, sign and date. Present On Admission (POA) Indicator: [] Present at the time of admission [] Not present at the time of admission [] Clinically Undetermined In responding to this query, please exercise your independent professional judgment. The fact that a question is asked does not imply that any particular answer is desired or expected. Thank you for your clarification on this documentation. If you have any questions please call:[ ] * Thank you, [ ]Trudy Unger [facility] #[id number] stitch cleaner NETO
[2016-09-12] MEDS: Insulin Lispro 1 UNITS/0.01 ML SC SCH ×3 (09:12→17:41)
[2016-09-12] MEDS: Insulin Lispro (humaLOG) LOW Coverage SC SCH ×4 (09:13→21:55)
--- NOTE | 2016-09-12 09:46 | RAD ---
HISTORY: cough COMPARISON: 08/28/2016 TECHNIQUE: Chest PA and lateral FINDINGS: LUNGS: No active pulmonary disease. PLEURA: No significant pleural effusion identified. No pneumothorax apparent. CARDIOVASCULAR: Normal. OSSEOUS STRUCTURES: No significant abnormalities. VISUALIZED UPPER ABDOMEN: Normal. OTHER FINDINGS: None. IMPRESSION: No active disease.
[2016-09-12] MEDS: Azithromycin 500MG/NS 250ml 250 ML IVPB SCH (10:13)
[2016-09-12] MEDS: cefTRIAXone 1 gm 100 ML IVPB SCH (10:13)
--- NOTE | 2016-09-12 14:24 | PN ---
DATE: 09/12/2016 SUBJECTIVE: The patient is lying in bed in no acute distress. There is no shortness of breath. The re is mild dyspnea with exertion, nonproductive cough. There is no chest pain, no hemoptysis. OBJECTIVE: VITAL SIGNS: Blood pressure 150/70, temperature 98, pulse 82, respiratory rate 20. LUNGS: Show some bibasilar rales. HEART: Regular rate and rhythm. ABDOMEN: Soft, nontender, bowel sounds are normoactive. EXTREMITIES: Without cyanosis, clubbing, or edema. NEUROLOGIC: The patient is awake and oriented x 3 without focal sensory or motor deficits. SKIN: Warm and dry. LABORATORY DATA: WBC is 5.5, hemoglobin 11.3, hematocrit 33.3. Sodium 141, potassium 3.9, chloride 106, CO2 28, BUN 8, creatinine 0.8, glucose 172. IMPRESSION: 1. Exacerbation of chronic obstructive pulmonary disease/bronchitis. 2. Recurrent diabetic ketoacidosis. 3. Hypertension, hypertensive cardiovascular disease, congestive heart failure. 4. Chronic schizophrenia/bipolar disorder. PLAN: Continue empiric IV antibiotics with Rocephin and Zithromax. We will give IV Lasix as patient has had an elevated BNP and sounds congested. Continue insulin coverage and endocrinology followup with Dr. Aviles Social work for discharge planning. Possible referral to transitional care unit. Socrates Padilla JD, MD cc: [phone] TT: 09/12/2016 14:23:18 Confirmation # [id number] Dictation # [id number] ankush
[2016-09-12] MEDS ORDERED: Oxycodone/Acetaminophen 5/325 mg Tab PO STA (20:35)
[2016-09-12] MEDS: Insulin Detemir 100 units/ml Vial (Levemir) SC SCH (22:02)
[2016-09-13] MEDS: Albuterol-Ipratrop 3 mg / 0.5 (3 ml) UD IH SCH ×4 (01:44→20:55)
[2016-09-13] MEDS: Insulin Lispro (humaLOG) LOW Coverage SC SCH ×4 (07:52→21:43)
[2016-09-13] MEDS: Insulin Lispro 1 UNITS/0.01 ML SC SCH ×3 (08:45→17:08)
[2016-09-13] MEDS: cefTRIAXone 1 gm 100 ML IVPB SCH (10:30)
--- NOTE | 2016-09-13 11:25 | PN ---
DATE: 09/13/[address] [place] [address], Room 364 SUBJECTIVE: This is a 61-year-old female with recent uncontrolled type 2 insulin-requiring diabetes, now being followed closely for metabolic management. She came in with mild diabetic ketoacidosis, r elated to drug omission of her insulin therapy at home. She admits to using insulin pens at home, bu t somehow, over the past 2 weeks, prior to this admission, she somehow took her insulin only on a p.r .n. basis, at least once a day, instead of the recommended 4 times daily dosing regimen. Her glycemic levels are still fluctuating today and have ranged from 263 this morning as noted and it was 298-325 yesterday. Her latest chemistry showed a BUN of 9, sodium 142, potassium 3.8, chloride 110, CO2 25, glucose 110 and creatinine 0.7. Her hemoglobin A1c is 12.4%, which is quite elevated, i ndicative of very poor outpatient metabolic control of her diabetic condition related to poor complia nce and adherence to her insulin regimen. So, at this time, we will modify her basal and bolus insulin regimen and increase the Levemir to 30 u nits subQ at bedtime daily to start today. We will also increase the Humalog, given with mealtimes t o 10 units subQ t.i.d. before meals as ordered. We will titrate incrementally as indicated to optimi ze metabolic control. Would highly recommend Home Health Care visit by a visiting nurse to fully sup ervise her insulin dose regimen administration at home as noted. We will discuss with our diabetic radha muñoz educator, Ms. Virginia Isidro, regarding the need for a weekly phone call to the patient regard ing her home glucose monitoring values and she notify me for insulin dose adjustment, if indicated, a ccordingly. We will follow and advise accordingly. Polly Carrillo MD cc: [id number] TT: 09/13/2016 11:25:02 Confirmation # [id number] Dictation # [id number] ln
[2016-09-13] MEDS: Azithromycin 500MG/NS 250ml 250 ML IVPB SCH (11:57)
--- NOTE | 2016-09-13 12:38 | PN ---
DATE: 09/13/2016 SUBJECTIVE: The patient is lying in bed in no acute distress. OBJECTIVE: VITAL SIGNS: Blood pressure 124/48, pulse 75, temperature 98.3, respiratory rate 18. LUNGS: Clear. HEART: Regular rate and rhythm. ABDOMEN: Soft, nontender. Bowel sounds are normoactive. EXTREMITIES: Without cyanosis, clubbing, or edema. NEUROLOGIC: The patient is awake and oriented without focal, sensory or motor deficits. SKIN: Warm and dry. IMPRESSION: 1. Exacerbation of chronic obstructive pulmonary disease with bronchitis. 2. Recurrent diabetic ketoacidosis. 3. Hypertension, hypertensive cardiovascular disease, and congestive heart failure. 4. Chronic schizophrenia/bipolar disorder. PLAN: Continue IV antibiotics, nebulizer treatments. Continue insulin coverage and endocrinology fo llowup with Dr. Carrillo. Social work for discharge planning. Socrates Padilla JD, MD cc: [phone] TT: 09/13/2016 12:38:09 Confirmation # [id number] Dictation # [id number] thu
[2016-09-13] MEDS ORDERED: Insulin Detemir 100 units/ml Vial (Levemir) SC SCH (22:00)
[2016-09-14] MEDS: Albuterol-Ipratrop 3 mg / 0.5 (3 ml) UD IH SCH ×4 (02:30→20:50)
[2016-09-14 07:09] LABS: ADD MANUAL DIFF? NO
[2016-09-14 07:24] LABS: ALB/GLOB RATIO 0.9 (1.1-1.8); ALKALINE PHOSPHATASE 105 U/L (38-133); ALT/SGPT 15 U/L (7-56); AST/SGOT 30 U/L (15-39); BILIRUBIN,TOTAL 0.4 mg/dL (0.2-1.3); BLOOD UREA NITROGEN 15 mg/dL (7-21); CALCIUM 8.8 mg/dL (8.4-10.5); CARBON DIOXIDE 31 mmol/L (21-33); CHLORIDE 101 mmol/L (95-110); GFR AFRICAN-AMERICAN > 60; GLUCOSE,RANDOM 198 mg/dL (70-110); POTASSIUM 3.8 mmol/L (3.6-5.0); SODIUM 137 mmol/L (132-148)
[2016-09-14 07:30] LABS: BASO # 0.02 K/mm3 (0.0-2.0); BASO % 0.4 % (0.0-3.0); EOS # 0.1 (0.0-0.7); EOS % 2.5 % (1.5-5.0); GRAN # 2.82 (1.4-6.5); GRAN % 53.8 % (50.0-68.0); HEMATOCRIT 33.2 % (36.0-48.0); LYMPH % 38.7 % (22.0-35.0); MEAN CELL VOLUME 87.8 fL (80.0-105.0); MEAN CORPUSCULAR HEMOGLOBIN 29.1 pg (25.0-35.0); MEAN CORPUSCULAR HGB CONC 33.1 g/dl (31.0-37.0); MEAN PLATELET VOLUME 9.4 fl (7.0-11.0); MONO # 0.2 (0.1-0.6); MONO % 4.6 % (1.0-6.0); PLATELET COUNT 281 10^3/uL (120.0-450.0); RED CELL DISTRIBUTION WIDTH 14.3 % (11.5-14.5); WHITE BLOOD COUNT 5.2 10^3/ul (4.5-11.0)
[2016-09-14] MEDS: Insulin Lispro (humaLOG) LOW Coverage SC SCH ×4 (08:06→22:15)
[2016-09-14] MEDS: Insulin Lispro 1 UNITS/0.01 ML SC SCH ×3 (08:29→17:05)
[2016-09-14] MEDS: cefTRIAXone 1 gm 100 ML IVPB SCH (09:39)
[2016-09-14] MEDS: Azithromycin 500MG/NS 250ml 250 ML IVPB SCH (10:57)
--- NOTE | 2016-09-14 12:21 | PN ---
DATE: 09/14/2016 ROOM: 364 This is a 61-year-old female with known history of type 2 insulin-requiring diabetes with persistent glycemic fluctuations related to the variability of her oral intake and also to underlying increased insulin resistance with concomitant morbid obesity, which is also contributing to the extremes of gly cemic fluctuations besides the variability of her oral intake and is now being followed closely for m etabolic management. She is receiving IV antibiotics and nebulizer therapy for acute exacerbation of COPD as noted. Her glycemic levels are fluctuating as reviewed overnight with glucose levels ranging from 253-303 mg /dL. Her latest chemistries today showed a BUN of 15, sodium 137, potassium 3.8, chloride 101, CO2 3 1, glucose 198 and creatinine 0.7. So at this time, we will modify once again her basal and bolus insulin regimen and increase the Humal og to 12 units subQ t.i.d. before meals to start at lunchtime today as ordered. We will also increas e the basal insulin overnight with Levemir to be given as 34 units subQ at bedtime daily to start ton ight. We will continue the low-dose correction scale using Humalog insulin as given. We will contin ue the serial chemistries to be obtained and we will supplement accordingly as indicated to optimize metabolic control. We will once again discuss with our diabetic nurse educator, Ms. Virginia Isidro , regarding the need for a weekly phone call for the next few weeks post discharge to reinforce the n eed for adherence to her insulin self-administration, not only once, but 4 times a day as recommended . She will be calling me for insulin dose adjustments with extremes of glycemic fluctuations. We wi ll follow and advise accordingly. Polly Carrillo MD cc: [phone] TT: 09/14/2016 12:20:27 Confirmation # [id number] Dictation # [id number] en
--- NOTE | 2016-09-14 14:41 | PN ---
DATE: 09/14/2016 SUBJECTIVE: The patient is lying in bed in no acute distress. She denies any chest pain. She compl ains of cough and some dyspnea on exertion, no shortness of breath. OBJECTIVE: LUNGS: Show bibasilar rales and scattered crepitations bilaterally. HEART: Regular rate and rhythm. ABDOMEN: Soft, nontender, bowel sounds are normoactive. EXTREMITIES: Without cyanosis, clubbing, or edema. NEUROLOGIC: The patient is awake and oriented without focal, sensory or motor deficits. SKIN: Warm and dry. LABORATORY DATA: WBC is 5.2, hemoglobin 11.0, hematocrit 33.2. Sodium 137, potassium 3.8, chloride 101, CO2 31, BUN 15, creatinine 0.7, glucose 198. IMPRESSION: 1. Exacerbation of chronic obstructive pulmonary disease with bronchitis. 2. Recurrent diabetic ketoacidosis. 3. Hypertension, hypertensive cardiovascular disease and congestive heart failure. 4. Chronic schizophrenia/bipolar disorder. PLAN: Continue IV antibiotics, and nebulizer treatments. Continue insulin coverage and endocrinolog y followup with Dr. Cole. We will give Lasix 20 mg IV, check labs, BNP in a.m. Social work for disch arge planning. Socrates Padilla JD, MD cc: [phone] TT: 09/14/2016 14:40:48 Confirmation # [id number] Dictation # [id number] an
[2016-09-14] MEDS ORDERED: Insulin Detemir 100 units/ml Vial (Levemir) SC SCH (22:00)
[2016-09-15] MEDS: Albuterol-Ipratrop 3 mg / 0.5 (3 ml) UD IH SCH ×4 (01:51→19:30)
--- NOTE | 2016-09-15 01:57 | CP.PCM.PN ---
Subjective - Date & Time of Evaluation Date of Evaluation: 09/15/16 Time of Evaluation: 02:19 - Subjective Subjective: S:Patient was seen at bedside because her blood glucose by finger stick was 361 mg %. Earlier it was 271 mg % when she got 34 Units levemir Patient complaints of some hot feeling in the body .Has no other complaints. Denies having had any extra food. Medical record was reviewed. O: Last Vital Signs 3 Temp 98.5 F 09/14/16 06:00 Pulse 83 09/14/16 17:53 Resp 20 09/14/16 06:00 BP 142/87 09/14/16 17:53 Pulse Ox 97 09/14/16 06:00 Awake, alert, not in distress. LUNGS:Normal breathing pattern. A:Hyperglycemia. P:Cover with regular insulin 2 Units SC now. Objective - Vital Signs/Intake and Output Vital Signs (last 24 hours): Temp Pulse Resp BP Pulse Ox 98.5 F 83 20 142/87 97 09/14/16 06:00 09/14/16 17:53 09/14/16 06:00 09/14/16 17:53 09/14/16 06:00 Intake and Output: 09/14/16 09/15/16 18:59 06:59 Intake Total 360 Balance 360 - Medications Medications: Current Medications Acetaminophen (Tylenol 325mg Tab) 650 mg PO Q6H PRN PRN Reason: Pain, moderate (4-7) Last Admin: 09/13/16 19:01 Dose: 650 mg Albuterol/Ipratropium (Duoneb 3 Mg/0.5 Mg (3 Ml) Ud) 3 ml IH [id number] [facility] Last Admin: 09/15/16 01:51 Dose: Not Given Benzonatate (Tessalon Perles) 100 mg PO TID [facility] Last Admin: 09/14/16 17:53 Dose: 100 mg Carvedilol (Coreg) 12.5 mg PO BID [facility] Last Admin: 09/14/16 17:53 Dose: 12.5 mg Clopidogrel Bisulfate (Plavix) 75 mg PO DAILY [facility] Last Admin: 09/14/16 09:40 Dose: 75 mg Ceftriaxone Sodium (Rocephin 1 Gram Ivpb) 100 mls @ 100 mls/hr IVPB DAILY [facility] PRN Reason: Protocol Last Admin: 09/14/16 09:39 Dose: 100 mls/hr Azithromycin (Zithromax 500mg In Ns) 250 mls @ 167 mls/hr IVPB DAILY [facility] PRN Reason: Protocol Last Admin: 09/14/16 10:57 Dose: 167 mls/hr Insulin Detemir (Levemir) 34 unit SC HS [facility] Last Admin: 09/14/16 22:15 Dose: 34 unit Insulin Human Lispro (Humalog Low) 0 units SC ACHS [facility] PRN Reason: Protocol Last Admin: 09/14/16 22:15 Dose: Not Given Insulin Human Lispro (Humalog) 12 units SC AC [facility] Last Admin: 09/14/16 17:05 Dose: Not Given Ondansetron HCl (Zofran Inj) 4 mg IVP Q6H PRN PRN Reason: Nausea/Vomiting Last Admin: 09/15/16 00:48 Dose: 4 mg - Labs Labs: 09/14/16 07:07 09/14/16 07:07
[2016-09-15] MEDS ORDERED: Insulin Lispro (humaLOG) LOW Coverage SC STA (01:58)
[2016-09-15 05:58] LABS: ADD MANUAL DIFF? NO
[2016-09-15 06:06] LABS: BASO # 0.03 K/mm3 (0.0-2.0); BASO % 0.5 % (0.0-3.0); EOS # 0.1 (0.0-0.7); EOS % 2.2 % (1.5-5.0); GRAN # 3.37 (1.4-6.5); HEMATOCRIT 33.2 % (36.0-48.0); LYMPH % 34.8 % (22.0-35.0); MEAN CELL VOLUME 87.8 fL (80.0-105.0); MEAN CORPUSCULAR HEMOGLOBIN 29.1 pg (25.0-35.0); MEAN CORPUSCULAR HGB CONC 33.1 g/dl (31.0-37.0); MEAN PLATELET VOLUME 9.2 fl (7.0-11.0); MONO # 0.3 (0.1-0.6); MONO % 4.5 % (1.0-6.0); PLATELET COUNT 291 10^3/uL (120.0-450.0); RED CELL DISTRIBUTION WIDTH 14.3 % (11.5-14.5); WHITE BLOOD COUNT 5.8 10^3/ul (4.5-11.0)
[2016-09-15 06:42] LABS: ALB/GLOB RATIO 0.9 (1.1-1.8); ALKALINE PHOSPHATASE 103 U/L (38-133); ALT/SGPT 29 U/L (7-56); AST/SGOT 41 U/L (15-39); BILIRUBIN,TOTAL 0.4 mg/dL (0.2-1.3); BLOOD UREA NITROGEN 18 mg/dL (7-21); CALCIUM 8.9 mg/dL (8.4-10.5); CARBON DIOXIDE 30 mmol/L (21-33); CHLORIDE 97 mmol/L (95-110); GFR AFRICAN-AMERICAN > 60; GLUCOSE,RANDOM 286 mg/dL (70-110); SODIUM 136 mmol/L (132-148); TOTAL PROTEIN 7.2 g/dL (5.8-8.3)
[2016-09-15] MEDS: Insulin Lispro (humaLOG) LOW Coverage SC SCH ×4 (07:55→21:31)
[2016-09-15] MEDS: Insulin Lispro 1 UNITS/0.01 ML SC SCH ×2 (07:55→17:09)
--- NOTE | 2016-09-15 08:41 | PN ---
DATE: 09/12/2016 ____ with recent uncontrolled type 2 insulin-requiring diabetes ____ diabetic ____ intensive insulin therapy and vigorous IV hydration as given. Her latest chemistry showed a BUN of 8, sodium 141, pota ssium 3.9, chloride 106, CO2 of 28, glucose 172 and creatinine 0.8. Her hemoglobin A1c is 12.4% whic h is quite elevated and indicative of suboptimal metabolic control of her diabetic condition even amanda or to this admission. So, at this time, we will ____ Humalog ____ units ____ before meals as ordered . We will also continue the basal insulin with Levemir given as 26 units subQ at bedtime daily. We will continue the low-dose correction scale using Humalog insulin as given. We will continue the IV hydration as ordered and potassium supplementation as ordered. We will obtain serial chemistries and we will ____ accordingly as indicated. Polly Carrillo MD cc: [id number] TT: 09/12/2016 16:27:56 Confirmation # [id number] Dictation # [id number] tn
[2016-09-15] MEDS: Azithromycin 500MG/NS 250ml 250 ML IVPB SCH (10:00)
[2016-09-15] MEDS: cefTRIAXone 1 gm 100 ML IVPB SCH (10:00)
--- NOTE | 2016-09-15 10:50 | PN ---
DATE: 09/15/2016 SUBJECTIVE: The patient is sitting out of bed in a chair, in no acute distress. She denies any ches t pain or shortness of breath. She complains of persistent cough and some mild dyspnea with exertion . OBJECTIVE: LUNGS: Show scattered crepitations bilaterally, occasional expiratory wheeze. HEART: Regular rate and rhythm. No JVD. ABDOMEN: Soft, nontender. Bowel sounds are normoactive. EXTREMITIES: Without cyanosis, clubbing, or edema. NEUROLOGIC: The patient is awake and oriented without focal, sensory or motor deficits. SKIN: Warm and dry. LABORATORY DATA: WBC is 5.8, hemoglobin 11.0, hematocrit 33.2. Sodium 136, potassium 4.0, chloride 97, CO2 30, BUN 18, creatinine 0.8, glucose 286. BNP is 94.6. IMPRESSION: 1. Exacerbation of chronic obstructive pulmonary disease with bronchitis. 2. Recurrent diabetic ketoacidosis. 3. Hypertension. 4. Chronic schizophrenia/bipolar disorder. PLAN: Continue IV antibiotics, nebulizer treatments. Will obtain pulmonary consult with Dr. Perez. Continue insulin coverage and endocrinology followup with Dr. Carrillo. Social work for discharge plann ing. Socrates Padilla JD, MD cc: [id number] TT: 09/15/2016 10:50:25 Confirmation # [id number] Dictation # [id number] debra
--- NOTE | 2016-09-15 14:50 | RAD ---
HISTORY: COPD Exacerb COMPARISON: 09/11/2016 TECHNIQUE: Chest PA and lateral FINDINGS: LUNGS: The lungs are well inflated and clear. PLEURA: No significant pleural effusion identified. No pneumothorax apparent. CARDIOVASCULAR: The heart is normal in size. OSSEOUS STRUCTURES: No significant abnormalities. VISUALIZED UPPER ABDOMEN: Normal. OTHER FINDINGS: None. IMPRESSION: No active pulmonary disease.
--- NOTE | 2016-09-15 15:15 | PN ---
DATE: 09/15/2016 ROOM: 364 SUBJECTIVE: This is a 61-year-old female with recent uncontrolled type 2 insulin-requiring diabetes with tremendous underlying increased insulin resistance and persistent hyperglycemic fluctuations as noted thereof. Her oral intake is quite variable as per the nursing staff as noted. Her latest chem istry showed a BUN of 18, sodium 136, potassium 4.0, chloride 97, CO2 of 30, glucose 286 and creatini ne 0.8. Her glucose values overnight ranged from 271-361 at bedtime as noted. Today, it ranged from 199-279 mg/dL. So, at this time, we will modify once again her insulin regimen to override the increased insulin res istance thereof and increase the Levemir to 40 units subQ at bedtime daily to start tonight. We will also increase the Humalog to 14 units subQ t.i.d. before meals to start at dinnertime today as order ed. We will continue the low-dose correction scale using Humalog insulin as given. We will follow a nd advise accordingly. Polly Carrillo MD cc: [id number] TT: 09/15/2016 15:15:05 Confirmation # [id number] Dictation # [id number] sn
[2016-09-15] MEDS: Arformoterol 15 mcg/2 ml Inh Sol IH SCH (19:28)
[2016-09-15] MEDS: Budesonide 0.5 mg/2 ml Inhal Susp UD IH SCH (19:30)
--- NOTE | 2016-09-15 19:52 | CON ---
DATE: 09/15/2016 REFERRING PHYSICIAN: Dr. Padilla. REASON FOR CONSULT: Cough, shortness of breath by history, diagnosis of chronic lung disease, admit kb to have snoring, daytime sleepy and tired. HISTORY OF PRESENT ILLNESS: This is a 61-year-old female with past medical history significant for h ypertension, heart failure, diabetes, history of stroke, presented to the Emergency Room on 09/09 with DKA because of noncompliance with insulin. She developed cough and shortness of breath, wheezing. Admits to have snoring, daytime sleepy and tired, some exposure to secondhand smoking. No nausea, no vomiting, no diarrhea reported. PAST MEDICAL HISTORY: Chronic lung disease, hypertension, history of stroke, diabetes and heart fail ure. ALLERGIES: ASPIRIN, BENADRYL, STELAZINE, AND CORTISOL. SOCIAL HISTORY: Denies any active smoking or alcohol use. FAMILY HISTORY: No significant cardiopulmonary disease reported. MEDICATIONS: She is on Brovana 15 mcg inhaled twice a day, Coreg 12.5 mg twice a day, DuoNeb q. 6 ho urs, insulin coverage, Levemir 40 units subQ at bedtime, Plavix 75 mg daily, Pulmicort inhaled q. 6 h ours, Rocephin 1 g IV daily, Tessalon Perles 3 times a day, Tylenol on a p.r.n. basis, Zithromax 500 mg daily, Zofran on a p.r.n. basis. REVIEW OF SYSTEMS: No headache, no rhinitis. Has some cough, shortness of breath. No chest pain, n o nausea, no vomiting or diarrhea. No leg pain or leg swelling. Admitted to have snoring at nightti vt, daytime sleepy and tired. PHYSICAL EXAMINATION: GENERAL: No acute distress. VITAL SIGNS: Temp is 98, heart rate is 86, respiratory rate is 20, blood pressure 112/60, pulse ox 9 5% on room air. HEENT: Moist mucous membranes. Crowded airway. Mallampati score is 4. NECK: Supple. No JVD. LUNGS: Has bilateral scattered rhonchi and few wheezing. HEART: S1 and S2. ABDOMEN: Soft, nontender. No organomegaly. EXTREMITIES: There is no edema. NEUROLOGIC: Awake, alert, follows simple commands. LABORATORY DATA: Shows hemoglobin 11.0, hematocrit 33.2, WBC 5.8, platelet count is 291. Sodium 136 , potassium 4.0, chloride 97, bicarbonate 30, BUN 18, creatinine 0.8, glucose 286, calcium is 8.9, T 41, ALT 29, alkaline phosphatase is 103, albumin is 3.5. MICROBIOLOGY: Blood culture has been negative. Chest x-ray is unremarkable for any infiltrates or e ffusion. IMPRESSION AND PLAN: Originally admitted with diabetic ketoacidosis secondary to noncompliance with the medication. Also has a history of chronic obstructive lung disease, hypertension, schizophrenia/ bipolar disorder, obesity, history of stroke in the remote past. Also, carries diagnosis of heart fa ilure. Case discussed with nurse practitioner. I spoke to floor nurse practitioner. Started on inh aled steroids, same time will do dysphagia evaluation to assure there is oropharyngeal dysphagia. I am going to send a proBNP for the morning and also get a procalcitonin. I will also recommend outpat ient attended sleep study, get echocardiogram to assess RV and left ventricular function. Thank you and will follow with you. Tomasz Perez MD cc: [id number] TT: 09/15/2016 19:51:04 Confirmation # [id number] Dictation # [id number] jn
[2016-09-15] MEDS ORDERED: Insulin Detemir 100 units/ml Vial (Levemir) SC SCH (22:00)
[2016-09-16] MEDS: Albuterol-Ipratrop 3 mg / 0.5 (3 ml) UD IH SCH ×3 (02:45→14:34)
[2016-09-16] MEDS: Insulin Lispro (humaLOG) LOW Coverage SC SCH ×3 (07:55→16:44)
[2016-09-16] MEDS: Insulin Lispro 1 UNITS/0.01 ML SC SCH ×3 (07:57→17:12)
[2016-09-16] MEDS: cefTRIAXone 1 gm 100 ML IVPB SCH (09:27)
[2016-09-16] MEDS: Arformoterol 15 mcg/2 ml Inh Sol IH SCH (09:51)
[2016-09-16] MEDS: Azithromycin 500MG/NS 250ml 250 ML IVPB SCH (10:56)
[2016-09-16] MEDS: Budesonide 0.5 mg/2 ml Inhal Susp UD IH SCH ×2 (12:10→17:53)
--- NOTE | 2016-09-16 14:27 | PN ---
DATE: 09/16/2016 ROOM: 364. SUBJECTIVE: This is a 61-year-old female with recent uncontrolled type 2 insulin-requiring diabetes, presenting here with diabetic ketoacidosis and dehydration and has since then improved clinically an d metabolically as noted thereof. However, she continues to have bedtime hyperglycemic accelerations as noted thereof. Her glucose values last night ranged from 307-337 mg/dL. Today's glucose levels have improved and have ranged from 102-205 mg/dL. So at this time, to allow for dose equilibration, we will continue the same modified basal and bolus insulin regimen as given with Humalog given as 14 units subQ t.i.d. before meals as ordered. We will also continue the same basal insulin with Levemir given as 40 units subQ at bedtime daily as given. We will continue the low-dose correction scale us ing Humalog insulin as ordered. We will follow and advise accordingly. Polly Carrillo MD cc: [id number] TT: 09/16/2016 14:27:00 Confirmation # [id number] Dictation # [id number] ankush
--- NOTE | 2016-09-16 17:05 | DS ---
HOSPITAL COURSE: The patient is a 61-year-old female admitted through the Emergency Department on with recurrent diabetic ketoacidosis. The patient was treated with IV hydration as well as i nsulin, was seen in consultation by Dr. Polly Carrillo and started on an insulin regimen. The patient was also treated for an exacerbation of COPD with bronchitis and has been seen in consultation by Dr. Chao. She is now medically stable to transfer to the subacute care unit. PHYSICAL EXAMINATION: VITAL SIGNS: Blood pressure 139/79, pulse 86, temperature 98.2, respiratory rate 18. LUNGS: Clear. HEART: Regular rate and rhythm. ABDOMEN: Soft, nontender. Bowel sounds are normoactive. EXTREMITIES: Without cyanosis, clubbing, or edema. NEUROLOGIC: The patient is awake and oriented x 3 without focal sensory or motor deficits. SKIN: Warm and dry. IMPRESSION: 1. Recurrent diabetic ketoacidosis/type 1 diabetes. 2. Hypertension, hypertensive cardiovascular disease, possible mild congestive heart failure. 3. Chronic obstructive pulmonary disease with exacerbation and bronchitis. 4. Bipolar disorder/chronic schizophrenia. PLAN: The patient will be discharged today to the transitional care unit in stable condition on the following medications: Brovana 15 mcg inhaled q. 12 hours, carvedilol 12.5 mg twice daily, DuoNeb 3 mL inhaled q. 6 hours, insulin lispro and low-dose regular insulin coverage protocol, Plavix 75 mg da viet, Levemir 4 units subQ at bedtime, Pulmicort 1 mg inhaled q. 6 hours, Rocephin 1 gram IV q. 24 mike rs, Tessalon 100 mg 3 times daily, Tylenol 650 q. 6 p.r.n., Zithromax 500 mg IV daily and insulin lis pro 14 units subQ with meals. She will be maintained on a consistent carbohydrate diet. Activity is as per the subacute rehab unit. Socrates Padilla JD, MD cc: [id number] TT: 09/16/2016 17:05:20 pr
[2016-09-16 17:17] VITALS: BP 146/65; PULSE 71
[2016-09-16 19:05] VITALS: RESP 19; TEMP 97.8; O2SAT 99
--- NOTE | 2016-09-16 21:18 | PN ---
DATE: 09/16/2016 REFERRING PHYSICIAN: Dr. Padilla. SUBJECTIVELY: She is out of bed to chair. Feels better. Still had the cough, but decreased shortne ss of breath. No nausea, no vomiting, diarrhea, leg pain, or leg swelling. OBJECTIVELY: In no acute distress. Temp is 98, heart rate is 71, respiratory rate is 18, blood pressure 126/65, pulse ox 99% on room air . HENT: Moist mucous membranes. Crowded airway. Mallampati score is 4. NECK: Supple. No JVD. LUNGS: Have a few scattered rhonchi. HEART: S1 and S2. ABDOMEN: Soft, nontender. No organomegaly. EXTREMITIES: No edema. NEUROLOGICALLY: Awake, alert. Follows simple command. MEDICATIONS: Reviewed, and no new changes are reported since yesterday. LABORATORY DATA: Reviewed, and shows hemoglobin 11.7, hematocrit 33.2, WBC 5.8, platelet count is 29 1. Blood sugar this morning 170. Procalcitonin is less than 0.05. ProBNP is 70. MICROBIOLOGY: Blood culture has been negative. IMPRESSION AND PLAN: Diabetic ketoacidosis, which is much improved. noncompliant, chronic obstructive lung disease, hypertension, schizophrenia/bipolar disorder, may have a component of sleep apnea syndrome, obesity. Pulmonary point of view, she is doing better. Continue inhaled beta agonist as well as . Keep head elevated 45 degrees. Gastric prophylaxis. Continue inhibitor, antihistaminics. Deep vein thrombosis prophylaxis. Had an echocardiogram done earlier this month which shows good LV dysfunction. I spoke to nurse prac titioner on the floor. The patient could be transferred to [facility] for further care if cleared by Dr. Amanda bautista. Thank you, and will follow with you. Tomasz Perez MD cc: [phone] TT: 09/16/2016 21:17:44 Confirmation # [id number] Dictation # [id number] thu
== END 2016-09-16 20:09 | DRG 638 ==
LOC: ED 11:27 → UNDOADMOB 14:17 → INTOOBSV 14:17 → ERH 14:17 → 3RNO 15:40 → ERH 15:56 → OBSVTOIN 09-11 15:40
PROVIDERS: ADMIT Internal Medicine; ATTEND Internal Medicine
DX: E10.10 Type 1 diabetes mellitus with ketoacidosis without coma (principal); J44.1 Chronic obstructive pulmonary disease with (acute) exacerbation; I11.0 Hypertensive heart disease with heart failure; I50.9 Heart failure, unspecified; E10.21 Type 1 diabetes mellitus with diabetic nephropathy; E10.42 Type 1 diabetes mellitus with diabetic polyneuropathy; E10.319 Type 1 diabetes mellitus with unspecified diabetic retinopathy without macular edema; E10.51 Type 1 diabetes mellitus with diabetic peripheral angiopathy without gangrene; E86.0 Dehydration; E66.9 Obesity, unspecified; E78.5 Hyperlipidemia, unspecified; F20.9 Schizophrenia, unspecified; F31.9 Bipolar disorder, unspecified; G47.30 Sleep apnea, unspecified; I25.10 Atherosclerotic heart disease of native coronary artery without angina pectoris; Z68.31 Body mass index [BMI] 31.0-31.9, adult; Z79.4 Long term (current) use of insulin; Z86.73 Personal history of transient ischemic attack (TIA), and cerebral infarction without residual deficits; Z91.14 Patient's other noncompliance with medication regimen; Z88.6 Allergy status to analgesic agent

== ENCOUNTER 2016-09-16 20:17 | Inpatient (IN) | payer OTHER, MEDICAID ==
[2016-09-16] MEDS ORDERED: Insulin Detemir 100 units/ml Vial (Levemir) SC SCH (22:00)
[2016-09-16] MEDS ORDERED: Insulin Lispro (humaLOG) LOW Coverage SC SCH (22:00)
[2016-09-17] MEDS: Albuterol-Ipratrop 3 mg / 0.5 (3 ml) UD IH SCH ×5 (00:02→20:00)
[2016-09-17 00:32] VITALS: RESP 18
[2016-09-17] MEDS: Budesonide 0.5 mg/2 ml Inhal Susp UD IH SCH ×3 (01:45→19:59)
[2016-09-17] MEDS: cefTRIAXone 1 gm 100 ML IVPB SCH (05:59)
[2016-09-17] MEDS: Azithromycin 500MG/NS 250ml 250 ML IVPB SCH (05:59)
[2016-09-17] MEDS: Arformoterol 15 mcg/2 ml Inh Sol IH SCH ×2 (07:43→19:59)
[2016-09-17] MEDS: Insulin Lispro 1 UNITS/0.01 ML SC SCH ×2 (08:30→12:49)
[2016-09-17] MEDS: Insulin Lispro (humaLOG) LOW Coverage SC SCH ×4 (08:30→22:45)
--- NOTE | 2016-09-17 12:19 | CON ---
DATE: 09/17/2016 HISTORY OF PRESENT ILLNESS: Shortly, the patient is a 61-year-old -[place] female with long history of diabetes, history of hypertension, CVAs. The patient came to the Emergency Department wit h elevated blood sugar. As per patient, she was found by visiting nurse. Psych consult was called f or evaluation of possible noncompliance with the medication and rule out mood symptoms. The patient is very familiar to this senior grant writer from the previous admissions on the medical floor and this senior grant writer was involved into the patient's care on 09/11/2016. This senior grant writer was involved into the patient's care for evaluation of the capacity to make decision about her insulin injections. The patient was seen and examined today. The patient remembered this senior grant writer by name. The patient has her sister, Miss Nina Perez, next to her. The patient reported that she came to the hospital because the sugar was elevat ed. The patient reported that she had been seeing nurse and her fingerstick was elevated. That is w hy visiting nurse sent her to the hospital. At present moment, the patient reported that she feels b hugo. The patient also reported, at the time of admission, she had chest congestion as well as was coughing. The patient denied that she was noncompliant with the medication. The patient said that s he suffered from diabetes for more than 30 years and she knows that it is important to take injection of insulin as well as eat healthy as well as check her fingersticks regularly. The patient denied b eing depressed. The patient denied thoughts of harming herself or others, denied intent or plan. Th e patient denied feeling anxious. The patient reported to have fair appetite and sleep. At present moment, her cough is improving. The patient denied hearing voices, seeing things, denied paranoid id eation. Collateral information was obtained from the patient's sister, Nina. Nina reported, when the patient's fingerstick is out of control, she has episodes of confusion. At the same time, eliu vargas's sister reported that the patient was prescribed some allergy medications, probably that is why sh sarah was drowsy and did not take her insulin. Besides that, the patient was not depressed, was not verb alizing any thoughts of killing herself, was functioning at her baseline. VITAL SIGNS: Reviewed. MEDICATIONS: Reviewed. LABORATORY DATA: Reviewed. MENTAL STATUS EXAMINATION: The patient presented to be alert and oriented, pleasant and cooperative. Fair eye contact. The patient has some dysarthria, but maybe it is related that the patient does h ave any dentures. Mood described "I feel fine." Affect was constricted, but reactive, mood congruen t. Thought process was coherent and goal directed. Thought content: The patient denied visual, aud itory, or tactile hallucinations. Denied paranoid ideations. The patient denied thoughts of harming herself or others, denied intent or plan. Insight and judgment are fair. Impulses are well control led. IMPRESSION: Rule out mood disorder due to general medical condition. The patient has multiple medic al issues, including diabetes, hypertension, history of transient ischemic attacks. Please see medic al team note for more detailed information. PLAN: Continue current management. The patient denied being depressed. The patient reported being compliant with the medications. The patient is well aware about her medical diagnosis and diagnosis of diabetes. The patient knows that she needs to take her medication as it was prescribed. The [facility] has visiting nurse twice a week. The patient has supportive family. Her sister lives with the [facility]. Besides that, no pathology was found. The patient is pleasant and cooperative. This senior grant writer will sign off from this case. Thank you very much for letting me participate in care of your patient. Julia Flores MD cc: [phone] TT: 09/17/2016 12:19:03 Confirmation # [id number] Dictation # [id number] tn
--- NOTE | 2016-09-17 14:00 | HP ---
HISTORY OF PRESENT ILLNESS: The patient is a 61-year-old female with a history of type 1 diabetes me llitus, status post admission for recurrent diabetic ketoacidosis who is now [facility] for continued treatment. PAST MEDICAL HISTORY: Includes type 2 diabetes mellitus with recurrent diabetic ketoacidosis. She w as seen in consultation by Dr. Polly Carrillo and started on an insulin regimen. History also includes co ngestive heart failure, hypertension, COPD, CVA in the with left hemiparesis, which has improve d. PAST SURGICAL HISTORY: Includes back surgery 1963, status post lumbar laminectomy and fusion. The p atient has a history of cholecystectomy and total abdominal hysterectomy and bilateral salpingo-oopho rectomy. ALLERGIES: INCLUDE ASPIRIN, BENADRYL, STELAZINE AND CORTISONE. CURRENT MEDICATIONS: Include Brovana 15 mcg inhaled q. 12 hours, Dulcolax p.r.n., DuoNeb inhaled q. 6 hours, low dose regular insulin coverage, Levemir 40 units at bedtime, Plavix 75 mg daily, Pulmico rt 1 mg inhaled q. 6 hours, Rocephin 1 gram IV q. 24 hours, Tessalon 100 mg 3 times daily, Tylenol 65 0 q. 6 p.r.n., Zithromax 500 mg q. 24 hours IV, Zofran 4 mg IV q. 6 hours p.r.n., Lispro insulin 14 u nits subcutaneous with meals. SOCIAL HISTORY: The patient has no history of tobacco or alcohol use. She has a history of bipolar disorder and schizophrenia in the past. REVIEW OF SYSTEMS: The patient denies any chest pain, shortness of breath or swelling of the legs. There is no cough, no congestion. The patient is currently being treated for exacerbation of chronic obstructive pulmonary disease with bronchitis. PHYSICAL EXAMINATION: GENERAL: The patient is a well-developed female in no acute distress. VITAL SIGNS: Blood pressure 119/57, temperature 98.3, pulse 86, respiratory rate 18. HEENT: Head is normocephalic, atraumatic. Pupils equal, round and reactive to light. Extraocular m ovements intact. NECK: Supple, with no carotid bruit, no adenopathy, no thyromegaly. LUNGS: Clear. HEART: Regular rate and rhythm. ABDOMEN: Soft, nontender, bowel sounds are normoactive. EXTREMITIES: Without cyanosis, clubbing, or edema. NEUROLOGIC: The patient is awake and responsive without focal sensory or motor deficits. SKIN: Warm and dry. IMPRESSION: 1. Recurrent diabetic ketoacidosis. 2. Chronic obstructive pulmonary disease with bronchitis. 3. Hypertension. 4. Chronic schizophrenia, bipolar disorder. PLAN: The patient is admitted to the transitional care unit to finish her course of IV antibiotics a s well as physical therapy for deconditioning. We will obtain a pulmonary consultation from Dr. Martha tan and endocrinology consultation from Dr. Carrillo. Continue present medications. Socrates Padilla JD, MD cc: [id number] TT: 09/17/2016 13:59:35 palak
--- NOTE | 2016-09-17 14:58 | CON ---
DATE: 09/17/2016 REFERRING PHYSICIAN: Dr. Padilla.. REASON FOR CONSULT: Cough, shortness of breath, new sleep apnea syndrome. HISTORY OF PRESENT ILLNESS: This is a 61-year-old female originally admitted to [facility] with DKA secondary to noncompliance with the medication, overall done well. An endocrinology consult was called, presently doing better. Other issue happened was cough and shortness of breath, treated with inhaled bronchodilator including inhaled steroids, done well, presently admitted to the [facility] for continued care. She is out of bed to reclining chair. Admits to snoring at nighttime, dayt francine sleepy and tired. No nausea, no vomiting, no leg pain or leg swelling. PAST MEDICAL HISTORY: Chronic lung disease, hypertension, history of stroke, diabetes, and heart danilo lure. ALLERGIES: ASPIRIN, BENADRYL, STELAZINE AND CORTISOL. SOCIAL HISTORY: Nonsmoker, nondrinker. FAMILY HISTORY: No significant cardiopulmonary disease reported. MEDICATIONS: She is on Brovana 15 mcg inhaled twice a day, Dulcolax 10 mg rectally was given today, DuoNeb q. 6 hour on a p.r.n. basis, insulin coverage, Levemir 40 units subQ at bedtime, Levaquin 500 mg daily, Pulmicort inhaled twice a day, Rocephin 1 gram daily, Tessalon Perles 100 mg 3 times a day, Tylenol on a p.r.n. basis, Zithromax 500 mg daily, Zofran p.r.n. basis. REVIEW OF SYSTEMS: No headache, no rhinitis. Has some cough and shortness of breath. No chest pain , no nausea, no vomiting, no diarrhea. Had constipation. No dysuria. No leg pain or leg swelling. Admitted to have snoring at nighttime, daytime sleepy and tired. PHYSICAL EXAMINATION: GENERAL: Sitting up in a chair in no acute distress. VITAL SIGNS: Temp is 98, heart rate is 86, respiratory rate is 18, blood pressure 119/57, pulse ox 9 8% on room air. HEENT: Moist mucous membrane. Crowded airway. Mallampati score is 4. NECK: Supple. No JVD. LUNGS: Have a prolonged expiratory phase with a few rhonchi. HEART: S1, S2. ABDOMEN: Soft, nontender. No organomegaly. EXTREMITIES: No edema. NEUROLOGIC: Awake, alert, follows simple commands. LABORATORY DATA: Shows hemoglobin 11.0, hematocrit 33.2, WBC 5.8, platelet is 291. Blood sugar toda y 364. Microbiology: Blood cultures have been negative. IMPRESSION AND PLAN: Status post diabetic ketoacidosis secondary to noncompliance with the medicatio n, chronic lung disease, hypertension, schizophrenia/bipolar disorder, history of obesity, may have sleep apnea syndrome. Agree with Dr. Padilla with the present management. We will continue bronchodil ator, keep head at 45 degree. ____ precaution. Psychiatry followup. Gastric and deep venous thromb osis prophylaxis. Fall precaution. We will recommend attended sleep study upon discharge as an outp atient. Careful with nighttime sedation. We will follow with you. Tomasz Perez MD cc: [phone] TT: 09/17/2016 14:57:34 Confirmation # [id number] Dictation # [id number] tn
--- NOTE | 2016-09-17 17:25 | PN ---
DATE: 09/17/2016 ROOM: 322, this is in TCU. SUBJECTIVE: This is a 61-year-old female with recent uncontrolled type 2 insulin-requiring diabetes, transferred to TCU for closer metabolic followup because of persistent hyperglycemic fluctuations an d accelerations with underlying increased insulin resistance as noted thereof. Her glycemic levels t cornelio are still markedly elevated and the latest glucose levels have ranged from 353-364 mg/dL. Her l atest chemistry showed a BUN of 18, sodium 136, potassium 4.0, chloride 97, CO2 30, glucose 364 and c reatinine 0.8. So, her hemoglobin A1c has been recorded as 12.4%, which is extremely elevated and in dicative of suboptimal metabolic control of her diabetic condition even prior to this admission. So at this time, we will modify once again her basal and bolus insulin regimen and increase the Levemir now to 50 units subQ at bedtime daily to start tonight. We will also titrate her insulin regimen giv en at mealtimes and increase the Humalog to 20 units subQ t.i.d. before meals to start at dinnertime today as ordered. We will continue the low-dose correction scale using Humalog insulin as given. We will follow and advise accordingly. Polly Carrillo MD cc: [id number] TT: 09/17/2016 17:24:22 Confirmation # [id number] Dictation # [id number]
--- NOTE | 2016-09-17 22:20 | CP.PCM.PN ---
Subjective - Date & Time of Evaluation Date of Evaluation: 09/17/16 Time of Evaluation: 22:20 - Subjective Subjective: Patient was seen at bedside because she complained of itching in side and out. States that she has allergies to benadryl. Has not had any unusual food . Denies sob, wheezing, skin rash. Pertinent medical record was reviewed. This 61 year old woman was admitted Has PMH of type I DM, recurrent DKA, CHF, HTN,CAD,COPD,lumbar laminectomy, cholecystectomy,ROXANNE&LINSEY. Objective - Vital Signs/Intake and Output Vital Signs (last 24 hours): Temp Pulse Resp BP Pulse Ox 98.3 F 86 18 119/57 L 98 09/17/16 10:00 09/17/16 10:00 09/17/16 10:00 09/17/16 10:00 09/17/16 10:00 Intake and Output: 09/17/16 09/18/16 18:59 06:59 Intake Total 0 Balance 0 - Medications Medications: Current Medications Acetaminophen (Tylenol 325mg Tab) 650 mg PO Q6H PRN; Protocol PRN Reason: moderate pain Last Admin: 09/17/16 14:24 Dose: 650 mg Albuterol/Ipratropium (Duoneb 3 Mg/0.5 Mg (3 Ml) Ud) 3 ml IH [id number] LELIA PRN Reason: Protocol Last Admin: 09/17/16 20:00 Dose: 3 ml Arformoterol Tartrate (Brovana) 15 mcg IH [id number] LELIA PRN Reason: Protocol Last Admin: 09/17/16 19:59 Dose: 15 mcg Benzonatate (Tessalon Perles) 100 mg PO TID LELIA PRN Reason: Protocol Last Admin: 09/17/16 17:26 Dose: 100 mg Budesonide (Pulmicort Respules) 1 mg IH Q6H LELIA PRN Reason: Protocol Last Admin: 09/17/16 19:59 Dose: 1 mg Clopidogrel Bisulfate (Plavix) 75 mg PO 0800 LELIA PRN Reason: Protocol Last Admin: 09/17/16 08:35 Dose: 75 mg Azithromycin (Zithromax 500mg In Ns) 250 mls @ 167 mls/hr IVPB 0600 LELIA PRN Reason: Protocol Last Admin: 09/17/16 05:59 Dose: 167 mls/hr Ceftriaxone Sodium (Rocephin 1 Gram Ivpb) 100 mls @ 100 mls/hr IVPB 0600 LELIA PRN Reason: Protocol Last Admin: 09/17/16 05:59 Dose: 100 mls/hr Insulin Detemir (Levemir) 50 unit SC HS LELIA PRN Reason: Protocol Insulin Human Lispro (Humalog Low) 0 units SC ACHS LELIA PRN Reason: Protocol Last Admin: 09/17/16 17:25 Dose: 2 units Insulin Human Lispro (Humalog) 20 units SC AC LELIA PRN Reason: Protocol Montelukast Sodium (Singulair) 10 mg PO HS LELIA Ondansetron HCl (Zofran Inj) 4 mg IVP Q6H PRN; Protocol PRN Reason: Nausea/Vomiting Last Admin: 09/17/16 06:38 Dose: 4 mg Pantoprazole Sodium (Protonix Ec Tab) 40 mg PO 0630 [facility] - Constitutional Appears: Well, No Acute Distress - Head Exam Head Exam: ATRAUMATIC, NORMAL INSPECTION, NORMOCEPHALIC - Eye Exam Eye Exam: Normal appearance - ENT Exam ENT Exam: Normal External Ear Exam - Neck Exam Neck Exam: Normal Inspection - Respiratory Exam Respiratory Exam: NORMAL BREATHING PATTERN - Cardiovascular Exam Cardiovascular Exam: absent: JVD - GI/Abdominal Exam GI & Abdominal Exam: absent: Distended - Rectal Exam Rectal Exam: Deferred - Extremities Exam Extremities Exam: Normal Inspection - Back Exam Back Exam: NORMAL INSPECTION - Neurological Exam Neurological Exam: Alert, Oriented x3 - Psychiatric Exam Psychiatric exam: Normal Affect, Normal Mood - Skin Skin Exam: Dry, Normal Color. absent: Abrasion, Cyanosis, Erythema, Rash Assessment and Plan - Assessment and Plan (Free Text) Assessment: A/P:Generalized itching:Aetiology?,Dry skin? S/P DKA. DM. CAD. HTN. CHF. COPD. Vistaril 50 mg PO x1. Continue present management.
[2016-09-17] MEDS: Insulin Detemir 100 units/ml Vial (Levemir) SC SCH (22:46)
[2016-09-18] MEDS: Albuterol-Ipratrop 3 mg / 0.5 (3 ml) UD IH SCH ×4 (02:13→21:00)
[2016-09-18] MEDS: cefTRIAXone 1 gm 100 ML IVPB SCH (05:39)
[2016-09-18] MEDS: Azithromycin 500MG/NS 250ml 250 ML IVPB SCH (05:40)
[2016-09-18] MEDS: Pantoprazole 40 mg EC Tab PO SCH (05:41)
[2016-09-18] MEDS: Insulin Lispro 1 UNITS/0.01 ML SC SCH ×3 (06:39→16:45)
[2016-09-18] MEDS: Insulin Lispro (humaLOG) LOW Coverage SC SCH ×4 (06:40→23:47)
[2016-09-18 07:05] LABS: ADD MANUAL DIFF? NO
[2016-09-18 07:20] LABS: BASO # 0.03 K/mm3 (0.0-2.0); BASO % 0.7 % (0.0-3.0); EOS # 0.1 (0.0-0.7); GRAN # 1.61 (1.4-6.5); GRAN % 39.8 % (50.0-68.0); HEMATOCRIT 32.9 % (36.0-48.0); LYMPH % 48.8 % (22.0-35.0); MEAN CELL VOLUME 88.7 fL (80.0-105.0); MEAN CORPUSCULAR HEMOGLOBIN 28.8 pg (25.0-35.0); MEAN CORPUSCULAR HGB CONC 32.5 g/dl (31.0-37.0); MEAN PLATELET VOLUME 9.3 fl (7.0-11.0); MONO # 0.3 (0.1-0.6); MONO % 7.7 % (1.0-6.0); PLATELET COUNT 266 10^3/uL (120.0-450.0); RED CELL DISTRIBUTION WIDTH 14.3 % (11.5-14.5)
[2016-09-18 07:26] LABS: ALB/GLOB RATIO 0.9 (1.1-1.8); ALKALINE PHOSPHATASE 98 U/L (38-133); ALT/SGPT 33 U/L (7-56); AST/SGOT 21 U/L (15-39); BILIRUBIN,TOTAL 0.5 mg/dL (0.2-1.3); BLOOD UREA NITROGEN 14 mg/dL (7-21); CALCIUM 8.8 mg/dL (8.4-10.5); CARBON DIOXIDE 28 mmol/L (21-33); CHLORIDE 102 mmol/L (98-107); GFR AFRICAN-AMERICAN > 60; GLUCOSE,RANDOM 197 mg/dL (70-110); SODIUM 140 mmol/L (132-148); TOTAL PROTEIN 7.1 g/dL (5.8-8.3)
[2016-09-18] MEDS: Budesonide 0.5 mg/2 ml Inhal Susp UD IH SCH ×2 (07:42→21:00)
[2016-09-18] MEDS: Arformoterol 15 mcg/2 ml Inh Sol IH SCH ×2 (07:46→21:00)
--- NOTE | 2016-09-18 16:16 | PN ---
DATE: 09/18/2016 SUBJECTIVE: The patient is lying in bed in no acute distress. She complains of generalized itching. No fever, no chills, no chest pain, no shortness of breath. OBJECTIVE: VITAL SIGNS: Blood pressure 120/69, temperature 97.1, pulse 87, respiratory rate 18. LUNGS: Clear. HEART: Regular rate and rhythm. ABDOMEN: Soft, nontender, bowel sounds are normoactive. EXTREMITIES: Without cyanosis, clubbing, or edema. NEUROLOGIC: The patient is awake and oriented x 3. SKIN: Warm and dry. LABORATORY DATA: WBC is 4.0, hemoglobin 10.7, hematocrit 32.9, sodium 140, potassium 4.0, chloride 1 02, CO2 of 28, BUN 14, creatinine 0.7, glucose 197. IMPRESSION: 1. Recurrent diabetic ketoacidosis. 2. Chronic obstructive pulmonary disease with bronchitis, clinically improved. 3. Hypertension. 4. Chronic schizophrenia/bipolar disorder. 5. Pruritus. PLAN: Continue pulmonary followup with Dr. Perez an endocrine follow with Dr. Carrillo. Will discontinu e antibiotics secondary to itching. Continue physical therapy and social work for discharge planning . Socrates Padilla JD, MD cc: [phone] TT: 09/18/2016 16:15:52 Confirmation # [id number] Dictation # [id number] mn
--- NOTE | 2016-09-18 16:40 | PN ---
DATE: 09/18/2016 ROOM: 322 [facility]. This is a 61-year-old female with recent uncontrolled type 2 insulin-requiring diabetes with persiste nt hyperglycemic accelerations and is quite a very hefty insulin requirement with underlying insulin resistance thereof and is now being followed closely for metabolic management. Her glycemic levels today are fluctuating, but much improved and have ranged from 197-217 and 270 mg/ dL. Her bedtime glucose levels are extremely elevated at 391 mg/dL. Her latest chemistry showed a B UN of 14, sodium 140, potassium 4.0, chloride 102, CO2 28, glucose 197 and creatinine 0.7. So, at this time, will continue the same basal and bolus insulin regimen to allow for dose equilibrat ion and keep her on the Levemir given at 50 units subQ at bedtime daily to start tonight. Will also continue the Humalog given as 20 units subQ t.i.d. before meals as ordered. Will continue the low-do se correction scale using Humalog insulin as given. Will titrate incrementally as indicated to optim ize metabolic control. Will follow. Polly Carrillo MD cc: [id number] TT: 09/18/2016 16:40:46 Confirmation # [id number] Dictation # [id number] debra
[2016-09-18] MEDS: Insulin Detemir 100 units/ml Vial (Levemir) SC SCH (23:28)
--- NOTE | 2016-09-19 01:41 | PN ---
DATE: 09/18/2016 REFERRING PHYSICIAN: Dr. Padilla. SUBJECTIVE: She is lying in the reclining bed today. Day was good. Participated in therapy, feels better, decreased cough, decreased shortness of breath. No nausea, vomiting, diarrhea. No leg pain or leg swelling. OBJECTIVE: GENERAL: In no acute distress. VITAL SIGNS: Temp is 98, heart rate 81, respiratory rate is 20, blood pressure 120/69, pulse ox 98% on room air. HEENT: Moist mucous membranes. Crowded airway. Mallampati score is 4. NECK: Supple. No JVD. LUNGS: Have a fair airflow with no rhonchi. HEART: S1, S2. ABDOMEN: Soft, nontender. No organomegaly. EXTREMITIES: There is no edema. NEUROLOGIC: Awake, alert, follows simple command. MEDICATIONS: She is on Brovana 15 mcg inhaled twice a day, albuterol-Atrovent nebulizer q. 6 hours, insulin coverage, Levemir 15 units subQ at bedtime, Plavix 75 mg daily, Protonix 40 mg daily, Pulmico rt inhaled twice a day, Singulair 10 mg daily, Tessalon Perles 100 mg 3 times a day, Tylenol on a p.r .n. basis, Zofran 4 mg q. 6 hours p.r.n. LABORATORY DATA: Shows hemoglobin 10.7, hematocrit 32.9, WBC 4.0, platelet is 266. Sodium 140, pota ssium 4.0, chloride 102, bicarbonate 28, BUN 14, creatinine 0.7, glucose 107, calcium 8.8, AST 21, AL T 33, alkaline phosphatase is 98, albumin 3.4. IMPRESSION AND PLAN: Status post diabetic ketoacidosis secondary to noncompliance, chronic lung dise ase, hypertension, schizophrenia, bipolar disorder, obesity, may have component of sleep apnea syndro me. Pulmonary point of view, continue bronchodilator, keep head elevated at 45 degrees, aspiration p recaution, gastric prophylaxis, deep venous thrombosis prophylaxis. Continue therapy. Will benefit from outpatient attended sleep study. Will follow. Tomasz Perez MD cc: [phone] TT: 09/19/2016 01:41:07 Confirmation # [id number] Dictation # [id number] mn
[2016-09-19] MEDS: Albuterol-Ipratrop 3 mg / 0.5 (3 ml) UD IH SCH ×4 (02:18→20:59)
[2016-09-19] MEDS: Pantoprazole 40 mg EC Tab PO SCH (05:44)
[2016-09-19] MEDS: Insulin Lispro 1 UNITS/0.01 ML SC SCH ×3 (06:37→17:47)
[2016-09-19] MEDS: Insulin Lispro (humaLOG) LOW Coverage SC SCH ×4 (06:37→22:06)
[2016-09-19] MEDS: Arformoterol 15 mcg/2 ml Inh Sol IH SCH ×2 (07:31→20:59)
[2016-09-19] MEDS: Budesonide 0.5 mg/2 ml Inhal Susp UD IH SCH ×2 (07:32→21:00)
--- NOTE | 2016-09-19 13:25 | PN ---
DATE: 09/19/2016 ROOM: 322 [facility]. This is a 61-year-old female with recent uncontrolled type 2 insulin-requiring diabetes with tremendo us underlying increased insulin resistance with hefty insulin requirements as noted thereof. Her glycemic levels are fluctuating, but much improved at this time and the latest chemistry showed a BUN of 14, sodium 140, potassium 4.0, chloride 102, CO2 28, glucose 197 and creatinine 0.7. The glu cose levels have ranged from 143-232 and 244 mg/dL. So at this time, to allow for dose equilibration, we will continue the same basal and bolus insulin r egimen as given with Levemir given as 50 units subQ at bedtime daily to start tonight. We will kandis nue also the Humalog given as 20 units subQ t.i.d. before meals as ordered. We will continue the low -dose correction scale using Humalog insulin as given. We will follow and advise accordingly. Polly Carrillo MD cc: [id number] TT: 09/19/2016 13:24:08 Confirmation # [id number] Dictation # [id number] en
--- NOTE | 2016-09-19 17:48 | PN ---
DATE: 09/19/2016 SUBJECTIVE: The patient is lying in bed in no acute distress. She still complains of some generaliz ed itching. No fevers, no chills, no chest pain, no shortness of breath, no rashes present. OBJECTIVE: VITAL SIGNS: Blood pressure 144/70, pulse 108, temperature 98.6, respiratory rate 18. LUNGS: Clear. HEART: Regular rate and rhythm. ABDOMEN: Soft, nontender. Bowel sounds are normoactive. EXTREMITIES: Without cyanosis, clubbing, or edema. NEUROLOGIC: The patient is awake and oriented x 3 without focal sensory or motor deficits. SKIN: Warm and dry. IMPRESSION: 1. Recurrent diabetic ketoacidosis. 2. Chronic obstructive pulmonary disease with bronchitis. 3. Hypertension. 4. Chronic schizophrenia/bipolar disorder. 5. Pruritus. PLAN: Continue pulmonary followup with Dr. Perez, endocrinology followup with Dr. Carrillo. We will sta rt Atarax 25 mg q. 6 hours p.r.n. itching. Continue physical therapy. Social work for discharge [facility]. Check labs in a.m. Socrates L Randy PARRISH MD cc: [phone] TT: 09/19/2016 17:47:21 Confirmation # [id number] Dictation # [id number] tn
--- NOTE | 2016-09-19 21:34 | PN ---
DATE: 09/19/2016 REFERRING PHYSICIAN: Dr. Padilla. SUBJECTIVE: She is out of bed to reclining chair. Night was unremarkable. Doing well in therapy. Cough is better. Shortness of breath is improving. No nausea, no vomiting, no diarrhea. No leg lisa n or leg swelling. Admitted to have loud snoring, daytime sleepy and tired. OBJECTIVE: GENERAL: In no acute distress. VITAL SIGNS: Temp is 98, heart rate is 105, respiratory rate is 20, blood pressure 144/70, pulse ox 98% on room air. HEENT: Moist mucous membranes. Crowded airway. Mallampati score is 4. NECK: Supple. No JVD. LUNGS: Has a few scattered rhonchi. HEART: S1, S2. ABDOMEN: Soft, nontender. No organomegaly. EXTREMITIES: There is no edema. NEUROLOGIC: Awake, alert, follows simple commands. LABORATORY DATA: Reviewed and shows blood sugar this morning is 346. IMPRESSION AND PLAN: Status post diabetic ketoacidosis secondary to noncompliance, lung diseas e, hypertension, schizophrenia, bipolar disorder, obesity, may have sleep apnea syndrome. Pulmonary point of view, she is doing okay. Continue bronchodilator. Keep head elevated at 45 degrees. Aspir ation precaution. Sleep apnea precaution. Avoid sedation. Continue therapy. Being followed by end ocrinology for diabetes. Thank you and will follow with you. Tomasz Perez MD cc: [phone] TT: 09/19/2016 21:34:07 Confirmation # [id number] Dictation # [id number] palak
[2016-09-19] MEDS: Insulin Detemir 100 units/ml Vial (Levemir) SC SCH (22:07)
[2016-09-20] MEDS: Pantoprazole 40 mg EC Tab PO SCH (06:01)
[2016-09-20] MEDS: Insulin Lispro (humaLOG) LOW Coverage SC SCH ×4 (06:46→21:49)
[2016-09-20] MEDS: Insulin Lispro 1 UNITS/0.01 ML SC SCH ×3 (06:52→18:37)
[2016-09-20 07:14] LABS: ADD MANUAL DIFF? NO
[2016-09-20 07:24] LABS: BASO # 0.03 K/mm3 (0.0-2.0); BASO % 0.6 % (0.0-3.0); EOS # 0.2 (0.0-0.7); EOS % 3.1 % (1.5-5.0); GRAN # 2.39 (1.4-6.5); HEMATOCRIT 33.3 % (36.0-48.0); LYMPH # 2.3 (1.2-3.4); LYMPH % 44.1 % (22.0-35.0); MEAN CELL VOLUME 88.6 fL (80.0-105.0); MEAN CORPUSCULAR HGB CONC 32.7 g/dl (31.0-37.0); MEAN PLATELET VOLUME 9.1 fl (7.0-11.0); MONO # 0.3 (0.1-0.6); MONO % 6.2 % (1.0-6.0); PLATELET COUNT 254 10^3/uL (120.0-450.0); RED CELL DISTRIBUTION WIDTH 14.3 % (11.5-14.5); WHITE BLOOD COUNT 5.2 10^3/ul (4.5-11.0)
[2016-09-20 07:35] LABS: ALKALINE PHOSPHATASE 103 U/L (38-133); ALT/SGPT 32 U/L (7-56); AST/SGOT 25 U/L (15-39); BILIRUBIN,TOTAL 0.5 mg/dL (0.2-1.3); BLOOD UREA NITROGEN 16 mg/dL (7-21); CALCIUM 8.9 mg/dL (8.4-10.5); CARBON DIOXIDE 28 mmol/L (21-33); CHLORIDE 103 mmol/L (98-107); GFR AFRICAN-AMERICAN > 60; GLUCOSE,RANDOM 146 mg/dL (70-110); POTASSIUM 4.1 mmol/L (3.6-5.0); SODIUM 138 mmol/L (132-148); TOTAL PROTEIN 7.7 g/dL (5.8-8.3)
[2016-09-20] MEDS: Arformoterol 15 mcg/2 ml Inh Sol IH SCH ×2 (07:43→20:53)
[2016-09-20] MEDS: Albuterol-Ipratrop 3 mg / 0.5 (3 ml) UD IH SCH ×3 (07:43→20:54)
[2016-09-20] MEDS: Budesonide 0.5 mg/2 ml Inhal Susp UD IH SCH ×4 (07:43→14:00)
--- NOTE | 2016-09-20 14:05 | PN ---
DATE: 09/20/2016 SUBJECTIVE: The patient is sitting up in a chair in no acute distress. Her itching has improved. S he complains of a slight cough with no chest pain or shortness of breath. OBJECTIVE: VITAL SIGNS: Blood pressure 156/72, pulse 97, temperature 98, respiratory rate 18. LUNGS: Clear. HEART: Regular rate and rhythm. ABDOMEN: Soft, nontender, bowel sounds are normoactive. EXTREMITIES: Without cyanosis, clubbing, or edema. NEUROLOGIC: The patient is awake and oriented x 3 without focal sensory or motor deficits. SKIN: Warm and dry. LABORATORY DATA: WBC is 8.2, hemoglobin 10.9, hematocrit 33.3. Sodium 138, potassium 4.1, chloride 103, CO2 of 28, BUN 16, creatinine 0.8, glucose 146. IMPRESSION: 1. Recurrent diabetic ketoacidosis. 2. Chronic obstructive pulmonary disease with bronchitis. 3. Hypertension. 4. Chronic schizophrenia/bipolar disorder. 5. Pruritus, improved. PLAN: Continue pulmonary followup with Dr. Perez and endocrinology followup with Dr. Carrillo. Continue physical therapy and social work for discharge planning. Socrates Padilla JD, MD cc: [phone] TT: 09/20/2016 14:05:22 Confirmation # [id number] Dictation # [id number] ankush
--- NOTE | 2016-09-20 19:14 | PN ---
DATE: 09/20/2016 REFERRING PHYSICIAN: Dr. Padilla. SUBJECTIVE: She is lying in the reclining chair. No headache, no rhinitis, mild postnasal drip. No nausea, no vomiting, no diarrhea. No leg pain or leg swelling. OBJECTIVE: GENERAL: No acute distress. VITAL SIGNS: Temp is 98, heart rate is 90, respiratory rate is 20, blood pressure 124/69, pulse ox 9 9% on room air. HEENT: Moist mucous membranes. Crowded airway. Mallampati score is 4. NECK: Supple. No JVD. LUNGS: Has a fair airflow with few rhonchi. HEART: S1, S2. ABDOMEN: Soft, nontender. No organomegaly. EXTREMITIES: There is no edema. NEUROLOGIC: Awake, alert, follows simple commands. MEDICATIONS: She is on Atarax 25 mg q. 6 hours p.r.n., Brovana 15 mcg inhaled twice a day, DuoNeb q. 6 hours, insulin coverage, Levemir 54 units subQ at bedtime, Plavix 75 mg daily, Protonix 40 mg aretha y, Pulmicort inhaled twice a day, Singulair 10 mg daily, Tessalon Perles 3 times a day, Tylenol p.r.n ., Zofran p.r.n. LABORATORY DATA: Shows hemoglobin 10.9, hematocrit 33.3, WBC 5.2, platelet is 254. Sodium 138, pota ssium 4.1, chloride 103, bicarbonate 28, BUN is 16, creatinine 0.8, glucose 146, calcium 8.9, AST 25, ALT 32, alkaline phosphatase is 103, albumin is 3.8. IMPRESSION AND PLAN: Status post diabetic ketoacidosis secondary to noncompliance, chronic lung dise ase, hypertension, schizophrenia, bipolar disorder, obesity, may have a sleep apnea syndrome or rhini tis. Continue p.o. and inhaled bronchodilator. Keep head elevated at 45 degrees, aspiration precaut ion. Gastric prophylaxis. We will add Flonase 1 spray each nostril twice a day. Thank you and we w ill follow with you. Tomasz Perez MD cc: [phone] TT: 09/20/2016 19:14:30 Confirmation # [id number] Dictation # [id number] mn
[2016-09-20] MEDS: Insulin Detemir 100 units/ml Vial (Levemir) SC SCH (21:56)
[2016-09-20] MEDS: Fluticasone Nasal 50 mcg/Spray NS SCH (22:19)
[2016-09-21] MEDS: Albuterol-Ipratrop 3 mg / 0.5 (3 ml) UD IH SCH ×4 (02:27→20:03)
[2016-09-21] MEDS: Pantoprazole 40 mg EC Tab PO SCH (05:41)
[2016-09-21] MEDS: Insulin Lispro (humaLOG) LOW Coverage SC SCH ×4 (07:00→22:13)
[2016-09-21] MEDS: Insulin Lispro 1 UNITS/0.01 ML SC SCH ×3 (07:00→17:30)
[2016-09-21] MEDS: Arformoterol 15 mcg/2 ml Inh Sol IH SCH ×2 (07:57→20:03)
[2016-09-21] MEDS: Budesonide 0.5 mg/2 ml Inhal Susp UD IH SCH ×4 (07:57→20:03)
[2016-09-21] MEDS: Fluticasone Nasal 50 mcg/Spray NS SCH ×3 (10:22→22:13)
--- NOTE | 2016-09-21 15:23 | PN ---
DATE: 09/21/2016 SUBJECTIVE: The patient is sitting up in the chair, in no acute distress. There is no chest pain or shortness of breath. OBJECTIVE: VITAL SIGNS: Blood pressure 136/70, temperature 98.1, pulse 84, respiratory rate 18. LUNGS: Clear. HEART: Regular rate and rhythm. ABDOMEN: Soft, nontender, bowel sounds are normoactive. EXTREMITIES: Without cyanosis, clubbing, or edema. NEUROLOGIC: The patient is awake and oriented x 3 without focal sensory or motor deficits. SKIN: Warm and dry. IMPRESSION: 1. Recurrent diabetic ketoacidosis. 2. Chronic obstructive pulmonary disease with bronchitis. 3. Hypertension. 4. Chronic schizophrenia/bipolar disorder. 5. Pruritus. PLAN: Continue endocrinology followup with Dr. Carrillo, pulmonary followup with Dr. Perez, continue y sical therapy and social work for discharge planning. Socrates Padilla JD, MD cc: 353 TT: 09/21/2016 15:22:57 Confirmation # [id number] Dictation # [id number] dn
--- NOTE | 2016-09-21 15:30 | PN ---
DATE: 09/21/2016 ROOM: 322 [facility]. This is a 61-year-old female with recent uncontrolled type 2 insulin-requiring diabetes, now being fo llowed closely for metabolic management. She also has manifested tremendous insulin resistance with very hefty insulin requirements as noted thereof. Her oral intake is variable, but otherwise satisfa ctory, as per the nursing staff. Her latest chemistries showed a BUN of 16, sodium 138, potassium 4.1, chloride 103, CO2 28, glucose 1 46 and creatinine 0.8. So at this time, we will continue the recently modified basal and bolus insulin regimen as undertaken last night. We will continue the Humalog given as 24 units subQ t.i.d. before meals as ordered with Levemir given as basal insulin at 54 units subQ at bedtime daily as given. We will titrate incremen tally as indicated to optimize metabolic control. We will follow. Polly Carrillo MD cc: [phone] TT: 09/21/2016 15:29:57 Confirmation # [id number] Dictation # [id number] en
--- NOTE | 2016-09-21 18:13 | PN ---
DATE: 09/21/2016 REFERRING PHYSICIAN: Dr. Padilla. SUBJECTIVE: She is out of bed to reclining chair. Overall, feels better, has some postnasal drip an d some cough. No nausea, no vomiting, diarrhea. No leg pain or leg swelling. OBJECTIVE: GENERAL: No acute distress. VITAL SIGNS: Temperature is 98, heart rate is 84, respiratory rate is 20, blood pressure 136/70, pul se ox 97% on room air. HEENT: Moist mucous membrane. Crowded airway. Mallampati score is 4. NECK: Supple. No JVD. LUNGS: Has a fair airflow with few rhonchi. HEART: S1 and S2. ABDOMEN: Soft, nontender. No organomegaly. EXTREMITIES: There is no edema. NEUROLOGIC: Awake, alert, follows simple command. MEDICATIONS: She is on Atarax 25 mg q. 6 hours p.r.n. for itching, Brovana 15 mcg inhaled twice a da y, DuoNeb q. 6 hours p.r.n., Flonase 1 spray each nostril twice a day, insulin coverage, Levemir 54 u nits subQ at bedtime, 5 mg daily, Protonix 40 mg daily, Pulmicort inhaled twice daily, Singulai r 10 mg daily, Tessalon Perles 100 mg 3 times a day, Tylenol p.r.n., Zofran on a p.r.n. basis. LABORATORY DATA: Reviewed and noted. No new lab is available since yesterday. IMPRESSION AND PLAN: Status post diabetic ketoacidosis secondary to noncompliance, chronic obstructi ve lung disease, hypertension, schizophrenia, bipolar disorder, obesity, may have a sleep apnea syndr ome, chronic rhinitis. Continue inhibitor. Continue nasal steroids and inhaled bronchodilator . Gastric prophylaxis. We will add antihistamine at bedtime daily. We will follow with you. Tomasz Perez MD cc: 336 TT: 09/21/2016 18:13:00 Confirmation # [id number] Dictation # [id number] mn
[2016-09-21] MEDS: Insulin Detemir 100 units/ml Vial (Levemir) SC SCH (22:14)
[2016-09-22] MEDS: Albuterol-Ipratrop 3 mg / 0.5 (3 ml) UD IH SCH ×4 (01:41→20:18)
[2016-09-22] MEDS: Pantoprazole 40 mg EC Tab PO SCH (05:51)
[2016-09-22] MEDS: Insulin Lispro (humaLOG) LOW Coverage SC SCH ×4 (06:46→22:21)
[2016-09-22] MEDS: Insulin Lispro 1 UNITS/0.01 ML SC SCH ×3 (06:59→17:30)
[2016-09-22] MEDS: Arformoterol 15 mcg/2 ml Inh Sol IH SCH ×2 (07:37→20:17)
[2016-09-22] MEDS: Budesonide 0.5 mg/2 ml Inhal Susp UD IH SCH ×2 (07:37→20:18)
--- NOTE | 2016-09-22 09:23 | PN ---
DATE: 09/20/2016 LOCATION: Room 322 [facility]. SUBJECTIVE: This is a 61-year-old female uncontrolled type 2 insulin-requiring diabetes with t remendous insulin resistance, the insulin requirements as noted thereof. Her glycemic levels a re fluctuating. Blood glucose levels today have ranged from 271 to 346 mg/dL. Her latest chemistries include a BUN o f 16, sodium 138, potassium 4.1, chloride 103, CO2 28, glucose 146, and creatinine 0.8. We will modify, once again her basal and bolus insulin regimen, as she clearly needs a much higher do se to override underlying resistance, and increase her Levemir to 54 units subQ at bedtime daily to s bing reyes. We will increase the Humalog to 24 units t.i.d. before meals, to start at lunchtime to day as ordered. We will continue the low-dose correction scale insulin . We will follow up . Polly Carrillo MD cc: [phone] TT: 09/20/2016 12:49:33 Confirmation # [id number] Dictation # [id number] ln
[2016-09-22] MEDS: Fluticasone Nasal 50 mcg/Spray NS SCH ×2 (10:46→22:25)
--- NOTE | 2016-09-22 14:09 | PN ---
DATE: 09/22/2016 ROOM: 322 This is a 61-year-old female with uncontrolled type 2 insulin-requiring diabetes and concomitant unde rlying tremendous increased insulin resistance with very hefty insulin requirements as noted thereof, and is being followed closely for metabolic management. Her repeat glucose levels have ranged from 123-302 mg/dL. Her latest chemistry showed a BUN of 16, s odium 138, potassium 4.1, chloride 103, CO2 28, glucose 146 and creatinine 0.8. So at this time, we will continue the same basal and bolus insulin regimen to allow for dose equilibr ation and keep her on the Humalog given as 24 units subQ t.i.d. before meals as ordered. We will als o continue the Levemir given as 54 units subQ at bedtime daily as given. We will titrate incremental ly as indicated to optimize metabolic control. We will follow and advise accordingly. Polly Carrillo MD cc: [phone] TT: 09/22/2016 14:09:02 Confirmation # [id number] Dictation # [id number] en
--- NOTE | 2016-09-22 15:48 | PN ---
DATE: 09/22/2016 SUBJECTIVE: The patient is sitting up in a chair, in no acute distress. She denies chest pain or sh ortness of breath. There is no itching at the present time. OBJECTIVE: VITAL SIGNS: Blood pressure 147/92, temperature 98.2, pulse 92, respiratory rate 18. LUNGS: Clear. HEART: Regular rate and rhythm. ABDOMEN: Soft, nontender, bowel sounds are normoactive. EXTREMITIES: Without cyanosis, clubbing, or edema. NEUROLOGIC: The patient is awake and oriented x 3 without focal, sensory or motor deficits. SKIN: Warm and dry. IMPRESSION: 1. Recurrent diabetic ketoacidosis. 2. Chronic obstructive pulmonary disease with bronchitis. 3. Hypertension. 4. Chronic schizophrenia/bipolar disorder. PLAN: Continue endocrinology followup with Dr. Carrillo and pulmonary followup with Dr. Perez. Continue physical therapy and social work for discharge planning. Socrates Padilla JD, MD cc: [phone] TT: 09/22/2016 15:47:43 Confirmation # [id number] Dictation # [id number] en
--- NOTE | 2016-09-22 21:25 | PN ---
DATE: 09/22/2016 REFERRING PHYSICIAN: Dr. Mon. SUBJECTIVE: She is sitting up in a reclining chair. Night was unremarkable, still has some postnasal drip. Apparently, she has been refusing to take steroids No nausea, no vomiting or diarrhea. No leg pain or leg swelling. OBJECTIVE: GENERAL: No acute distress. VITAL SIGNS: Temp is 98, heart rate is 92, respiratory rate is 20, blood pressure 147/92, pulse ox 9 8% on room air. HEENT: Moist mucous membranes. Crowded airway. NECK: Supple. No JVD. LUNGS: Fair airflow with few rhonchi. HEART: S1, S2. ABDOMEN: Soft, nontender. No organomegaly. EXTREMITIES: There is no edema. NEUROLOGIC: Awake, alert, follows simple command. MEDICATIONS: She is on Atarax 25 mg q. 6 hours p.r.n., Brovana 15 mcg inhaled twice a day, Claritin 10 mg daily, DuoNeb q. 6 hours, Flonase 1 spray each nostril twice a day, insulin coverage, Levemir 5 4 units at bedtime, Plavix 75 mg daily, Protonix 40 mg daily, Pulmicort inhaled twice a day, Singulai r 10 mg daily, Tessalon Perles 100 mg 3 times a day, Tylenol on a p.r.n. basis, Zofran on a p.r.n. ba sis. LABORATORY DATA: Shows blood sugar this morning 233. IMPRESSION AND PLAN: Status post diabetic ketoacidosis, chronic obstructive lung disease, hypertensi on, schizophrenia, bipolar disorder, obesity, may have sleep apnea syndrome, chronic rhinitis. Appare ntly, she has been using Flonase. I asked the patient to try it and see how she does. We will continu e inhibitor, antihistamine, gastric prophylaxis, bronchodilator. Sleep apnea precaution. Will recommend to attend a sleep study upon discharge as outpatient, PFT as outpatient. Thank you and we will follow with you. Tomasz Perez MD cc: [phone] TT: 09/22/2016 21:24:36 Confirmation # [id number] Dictation # [id number] ln
[2016-09-22] MEDS: Insulin Detemir 100 units/ml Vial (Levemir) SC SCH (22:22)
[2016-09-23] MEDS: Albuterol-Ipratrop 3 mg / 0.5 (3 ml) UD IH SCH ×4 (01:29→20:21)
[2016-09-23] MEDS: Pantoprazole 40 mg EC Tab PO SCH (05:53)
[2016-09-23] MEDS: Insulin Lispro 1 UNITS/0.01 ML SC SCH ×3 (06:43→17:53)
[2016-09-23] MEDS: Insulin Lispro (humaLOG) LOW Coverage SC SCH ×4 (06:44→22:13)
[2016-09-23 07:44] LABS: ADD MANUAL DIFF? NO
[2016-09-23] MEDS: Arformoterol 15 mcg/2 ml Inh Sol IH SCH ×2 (07:44→20:21)
[2016-09-23 07:59] LABS: BASO # 0.04 K/mm3 (0.0-2.0); BASO % 0.8 % (0.0-3.0); EOS # 0.2 (0.0-0.7); EOS % 3.6 % (1.5-5.0); GRAN # 2.09 (1.4-6.5); GRAN % 44.4 % (50.0-68.0); HEMATOCRIT 34.6 % (36.0-48.0); LYMPH % 43.3 % (22.0-35.0); MEAN CELL VOLUME 90.3 fL (80.0-105.0); MEAN CORPUSCULAR HEMOGLOBIN 29.8 pg (25.0-35.0); MEAN CORPUSCULAR HGB CONC 32.9 g/dl (31.0-37.0); MEAN PLATELET VOLUME 9.4 fl (7.0-11.0); MONO # 0.4 (0.1-0.6); MONO % 7.9 % (1.0-6.0); PLATELET COUNT 223 10^3/uL (120.0-450.0); RED CELL DISTRIBUTION WIDTH 14.5 % (11.5-14.5); WHITE BLOOD COUNT 4.7 10^3/ul (4.5-11.0)
[2016-09-23 08:16] LABS: ALKALINE PHOSPHATASE 105 U/L (38-133); ALT/SGPT 25 U/L (7-56); AST/SGOT 25 U/L (15-39); BILIRUBIN,TOTAL 0.5 mg/dL (0.2-1.3); BLOOD UREA NITROGEN 14 mg/dL (7-21); CALCIUM 9.1 mg/dL (8.4-10.5); CARBON DIOXIDE 27 mmol/L (21-33); CHLORIDE 101 mmol/L (95-110); GFR AFRICAN-AMERICAN > 60; GLUCOSE,RANDOM 153 mg/dL (70-110); POTASSIUM 4.8 mmol/L (3.6-5.0); SODIUM 138 mmol/L (132-148); TOTAL PROTEIN 7.8 g/dL (5.8-8.3)
[2016-09-23] MEDS: Fluticasone Nasal 50 mcg/Spray NS SCH ×2 (09:53→22:13)
[2016-09-23] MEDS: Budesonide 0.5 mg/2 ml Inhal Susp UD IH SCH ×3 (13:04→20:21)
--- NOTE | 2016-09-23 16:07 | PN ---
DATE: 09/23/2016 SUBJECTIVE: The patient is sitting up in a chair in no acute distress. She denies chest pain or kim rtness of breath. OBJECTIVE: VITAL SIGNS: Blood pressure 131/81, pulse 97, temperature 98, respiratory rate 18. LUNGS: Clear. HEART: Regular rate and rhythm. ABDOMEN: Soft, nontender, bowel sounds are normoactive. EXTREMITIES: Without cyanosis, clubbing, or edema. NEUROLOGIC: The patient is awake and oriented x 3 without focal sensory or motor deficits. SKIN: Warm and dry. LABORATORY DATA: WBC is 4.7, hemoglobin 11.4, hematocrit 34.6. Sodium 138, potassium 4.8, chloride 101, CO2 27, BUN 14, creatinine 0.8, glucose 153. IMPRESSION: 1. Recurrent diabetic ketoacidosis. 2. Chronic obstructive pulmonary disease. 3. Hypertension. 4. Chronic schizophrenia/bipolar disorder. PLAN: Continue endocrinology followup with Dr. Carrillo and pulmonary followup with Dr. Perez. Continue physical therapy and social work for discharge planning. Socrates Padilla JD, MD cc: 353 TT: 09/23/2016 16:06:36 Confirmation # [id number] Dictation # [id number] ankush
--- NOTE | 2016-09-23 19:15 | PN ---
DATE: 09/23/2016 REFERRING PHYSICIAN: Dr. Padilla. SUBJECTIVE: She is lying in the bed, head at 45 degrees, still complaining of postnasal drip, but re fuses to use Flonase. No nausea, no vomiting, no diarrhea. No leg pain or leg swelling. OBJECTIVE: GENERAL: No acute distress. VITAL SIGNS: Temperature is 98, heart rate is 97, respiratory rate is 20, blood pressure 131/81, pul se 77, and 97% on room air. HEENT: Moist mucous membranes. Crowded airway. Mallampati score is 4. NECK: Supple, no JVD. Nasal mucosa mildly erythematous. LUNGS: Has a fair airflow with few rhonchi. HEART: S1 and S2. ABDOMEN: Soft, nontender. No organomegaly. EXTREMITIES: There is no edema. NEUROLOGIC: Awake, alert, follows simple command. MEDICATIONS: She is on Atarax 25 mg q. 6 hours p.r.n., Brovana 15 mcg inhaled twice a day, Claritin 10 mg daily, DuoNeb q. 6 hours around the clock, Flonase 1 spray each nostril twice a day, insulin co verage, Levemir 50 units subQ at bedtime, Plavix 75 mg daily, Protonix 40 mg daily, Pulmicort inhaled twice a day, Singulair 10 mg daily, Tessalon Perles 100 mg 3 times a day, Tylenol p.r.n., Zofran p.r .n. LABORATORY DATA: Shows hemoglobin 11.4, hematocrit 34.6, WBC 4.7, platelet is 223. Sodium 138, pota ssium 4.8, chloride 101, bicarbonate 27, BUN 14, creatinine 0.8, glucose 153, calcium 9.1, AST 25, AL T 25, alkaline phosphatase is 105, albumin is 3.9. IMPRESSION AND PLAN: Status post DKA, chronic obstructive lung disease, hypertension, schizophrenia, bipolar disorder, obesity, sleep apnea syndrome, chronic rhinitis. Continue leukotriene inhibitors, antihistamines, refused to use nasal saline rinse. Continue bronchodilator. Keep head elevated at 45 degrees. Sleep apnea precaution. Gastric prophylaxis. Continue therapy. Thank you and will follow with you. Mohammad Ana MD cc: [phone] TT: 09/23/2016 19:14:31 Confirmation # [id number] Dictation # [id number] mn
[2016-09-23] MEDS ORDERED: Insulin Detemir 100 units/ml Vial (Levemir) SC SCH (22:00)
[2016-09-24] MEDS: Budesonide 0.5 mg/2 ml Inhal Susp UD IH SCH ×2 (02:30→07:27)
[2016-09-24] MEDS: Albuterol-Ipratrop 3 mg / 0.5 (3 ml) UD IH SCH ×2 (02:30→07:27)
[2016-09-24] MEDS: Insulin Lispro 1 UNITS/0.01 ML SC SCH ×2 (06:45→12:30)
[2016-09-24] MEDS: Pantoprazole 40 mg EC Tab PO SCH (06:46)
[2016-09-24] MEDS: Insulin Lispro (humaLOG) LOW Coverage SC SCH ×2 (06:46→12:30)
[2016-09-24] MEDS: Arformoterol 15 mcg/2 ml Inh Sol IH SCH (07:26)
--- NOTE | 2016-09-24 08:24 | PN ---
DATE: 09/23/2016 LOCATION: Room [facility]. . She did also Tradjenta is Romero insulin and actually been increased with meals. We will obt ain serial chemistries. We will follow a 50:58. She daily. This with resisted. We will modify he r insulin as ordered at 24 units subQ t.i.d. before meals. We will titrate incrementally as indicate d to optimize metabolic control. Polly Carrillo MD cc: [id number] TT: 09/23/2016 18:20:33 Confirmation # [id number] Dictation # [id number] dn 09/24/2016 07:23:29
[2016-09-24] MEDS: Fluticasone Nasal 50 mcg/Spray NS SCH (10:18)
[2016-09-24 11:43] VITALS: BP 125/75; PULSE 93; TEMP 97.6; O2SAT 97
--- NOTE | 2016-09-24 13:09 | PN ---
DATE: 09/24/2016 REFERRING PHYSICIAN: Dr. Padilla. SUBJECTIVE: She is out of bed to chair, being discharged home today. Feels better. No headache, no rhinitis, no cough, no sputum production, no nausea, no vomiting, diarrhea. No leg pain or leg swel ling. OBJECTIVE: GENERAL: No acute distress. VITAL SIGNS: Temperature is 97, heart rate is 93, respiratory rate is 20, blood pressure 125/75, pul se ox 97% on room air. HEENT: Moist mucous membranes. Crowded airway. Mallampati score is 4. NECK: Supple. No JVD. LUNGS: Have a fair airflow with few rhonchi. HEART: S1 and S2. ABDOMEN: Soft and nontender. No organomegaly. EXTREMITIES: There is no edema. NEUROLOGIC: Awake, alert, follows simple command. MEDICATIONS: She is on Atarax 25 mg q. 6 hours p.r.n., Brovana 15 mcg inhaled twice a day, Claritin 10 mg daily, DuoNeb q. 6 hours, Flonase 1 spray each nostril twice daily, insulin coverage, Levemir 5 0 units subQ at bedtime, Plavix 75 mg daily, Protonix 40 mg daily, Pulmicort inhaled twice a day, Sin gulair 10 mg daily, Tessalon Perles 100 mg 3 times a day, Tylenol p.r.n., Zofran on a p.r.n. basis. LABORATORY DATA: Shows blood sugar this morning is 109. IMPRESSION AND PLAN: Status post diabetic ketoacidosis, chronic obstructive lung disease, hypertensi on, schizophrenia, bipolar disorder, obesity, sleep apnea syndrome, chronic rhinitis. According to ramu reyna, she is from [place] and originally had a sleep study done at [place], and she w as noncompliant with the CPAP, apparently claustrophobic, could not tolerate the CPAP and her CPAP wa s returned. She is willing to try a nasal pillow mask. We will see if we can schedule her outpatien t. with half apnea, half CPAP. Advised about sleep apnea syndrome. Fall precaution. Sleep apnea precaution. Continue leukotriene inhibitors, antihistamine. Tomasz Perez MD cc: [phone] TT: 09/24/2016 13:08:57 Confirmation # [id number] Dictation # [id number] an
--- NOTE | 2016-09-24 16:04 | PN ---
DATE: 09/24/2016 ROOM: 322 U. This is a 61-year-old female with recent uncontrolled type 2 insulin-requiring diabetes with persiste nt glycemic fluctuations despite the very hefty insulin dose regimen as given. Her glycemic levels are still fluctuating as noted and the latest glucose level today was 109 mg/dL. However, the fasting glucose was 391 as noted. Her latest chemistries showed a BUN of 14, sodium 13 8, potassium 4.8, chloride 101, CO2 27, glucose 153 and creatinine 0.8. So, at this time, will continue the same basal and bolus insulin regimen as recommended for discharge with Levemir given as 50 units subQ at bedtime daily to start tonight. Will also continue the Humal og given as 24 units subQ t.i.d. before meals as ordered. Will titrate incrementally as indicated to optimize metabolic control. She will follow with her medical doctor for outpatient diabetic and med ical management. Our nurse educator, Ms. Virginia Isidro, will be following up the patient at least for the next few weeks for her glycemic fluctuations and will notify me for any extremes of glycemic fluctuations for the necessary insulin dose adjustments to be undertaken. Polly Carrillo MD cc: [id number] TT: 09/24/2016 16:04:12 Confirmation # [id number] Dictation # [id number] debra
--- NOTE | 2016-09-24 19:40 | DS ---
HOSPITAL COURSE: The patient is a 61-year-old female admitted to the transitional care unit status p ost hospitalization for recurrent diabetic ketoacidosis due to exacerbation of COPD with bronchitis. The patient completed a course of IV antibiotics, was seen in consultation by Dr. Perez for pulmona ry, and in consultation by Dr. Polly Carrillo for endocrinology for adjustment of insulin regimen. The ronak rivera had an uneventful course in the transitional care unit, and was discharged to home today in sta ble condition. PHYSICAL EXAMINATION: VITAL SIGNS: Blood pressure 125/75, temperature 97.6, pulse 93, respiratory rate 18. LUNGS: Clear. HEART: Regular rate and rhythm. ABDOMEN: Soft, nontender. Bowel sounds are normoactive. EXTREMITIES: Without cyanosis, clubbing, or edema. NEUROLOGICALLY: The patient is awake and oriented x 3 without focal sensory or motor deficits. IMPRESSION: 1. Recurrent diabetic ketoacidosis/type 1 diabetes mellitus. 2. Chronic obstructive pulmonary disease with bronchitis. 3. Degenerative joint disease. 4. Chronic schizophrenia/bipolar disorder. PLAN: The patient was discharged to home today in stable condition on the following medications: Le vemir 50 units subQ at bedtime, Humalog 24 units subQ with meals, Plavix 75 mg daily, and Protonix 40 mg daily. The patient will be maintained on a heart-healthy diet, activities ad libitum. She will be seen in the office within the next 1-2 weeks. Socrates Padilla JD, MD cc: [phone] TT: 09/24/2016 19:39:06 jn
== END 2016-09-24 14:51 | disposition home health service (06) | DRG 638 ==
LOC: TRCU 20:17
PROVIDERS: ADMIT Internal Medicine; ATTEND Internal Medicine
PROC: F07Z9FZ Gait Training/Functional Ambulation Treatment using Assistive, Adaptive, Supportive or Protective Equipment (ICD-10-PCS; principal; 2016-09-17)
PROC: F07M6ZZ Therapeutic Exercise Treatment of Musculoskeletal System - Whole Body (ICD-10-PCS; 2016-09-17)
PROC: F08Z0ZZ Bathing/Showering Techniques Treatment (ICD-10-PCS; 2016-09-17)
PROC: F08Z1ZZ Dressing Techniques Treatment (ICD-10-PCS; 2016-09-17)
PROC: F08Z2ZZ Grooming/Personal Hygiene Treatment (ICD-10-PCS; 2016-09-17)
PROC: F08Z4ZZ Home Management Treatment (ICD-10-PCS; 2016-09-17)
DX: E10.10 Type 1 diabetes mellitus with ketoacidosis without coma (principal); G81.94 Hemiplegia, unspecified affecting left nondominant side; E88.81 Metabolic syndrome and other insulin resistance; I50.9 Heart failure, unspecified; I11.0 Hypertensive heart disease with heart failure; J44.1 Chronic obstructive pulmonary disease with (acute) exacerbation; F20.9 Schizophrenia, unspecified; F31.9 Bipolar disorder, unspecified; F40.240 Claustrophobia; G47.30 Sleep apnea, unspecified; J31.0 Chronic rhinitis; I25.10 Atherosclerotic heart disease of native coronary artery without angina pectoris; L29.9 Pruritus, unspecified; Z79.4 Long term (current) use of insulin; Z88.8 Allergy status to other drugs, medicaments and biological substances; Z90.49 Acquired absence of other specified parts of digestive tract; Z90.710 Acquired absence of both cervix and uterus; Z91.14 Patient's other noncompliance with medication regimen; Z91.19 Patient's noncompliance with other medical treatment and regimen; M19.90 Unspecified osteoarthritis, unspecified site; F06.30 Mood disorder due to known physiological condition, unspecified; E66.9 Obesity, unspecified; R09.82 Postnasal drip; Z68.31 Body mass index [BMI] 31.0-31.9, adult

== ENCOUNTER 2016-09-26 16:11 | Observation (INO) | payer MEDICARE, OTHER ==
[2016-09-26 16:25] VITALS: BMI 30.9
--- NOTE | 2016-09-26 16:26 | ED PDOC ---
Arrival/HPI - General Chief Complaint: Altered Mental Status Time Seen by Provider: 09/26/16 16:14 Historian: Patient - History of Present Illness Narrative History of Present Illness (Text): 09/26/16 16:23 61 year old female with a past medical history that includes diabetes presents to the emergency department with altered mental status and low blood sugar. EMS reports they gave Dextrose in the field. EMS also report patient was hypotensive. Patient awake and answering questions but unable to recall what happened. Denies any pain. Time/Duration: 24 hours Symptom Onset: Gradual Symptom Course: Unchanged Context: Home Past Medical History - Provider Review Nursing Documentation Reviewed: Yes - Infectious Disease Hx of Infectious Diseases: None - Tetanus Immunization Tetanus Immunization: Unknown - Reproductive Menopause: Yes - Cardiac Hx Cardiac Disorders: Yes Hx Hypertension: Yes - Pulmonary Hx Chronic Obstructive Pulmonary Disease (COPD): Yes - Neurological HX Cerebrovascular Accident: No - Renal Hx Renal Failure: No - Endocrine/Metabolic Hx Diabetes Mellitus Type 1: Yes Other/Comment: neuropathy - Hematological/Oncological Hx Cancer: No - Integumentary Hx Dermatological Disorder: No - Musculoskeletal/Rheumatological Hx Arthritis: No Hx Rheumatoid Arthritis: No - Gastrointestinal Hx Gastrointestinal Disorders: No - Genitourinary/Gynecological Hx Genitourinary Disorders: No Hx Reproductive Disorders: No - Psychiatric Hx Psychophysiologic Disorder: Yes Hx Substance Use: No Other/Comment: PREVIOUSLY ON STELAZINE - Surgical History Hx Cholecystectomy: Yes Hx Hysterectomy: Yes Hx Orthopedic Surgery: Yes (NECK, L LEG,BACK) - Anesthesia Hx Anesthesia: Yes Hx Anesthesia Reactions: No Hx Malignant Hyperthermia: No Family/Social History - Physician Review Nursing Documentation Reviewed: Yes Family/Social History: Unknown Family HX Smoking Status: Former Smoker Hx Alcohol Use: No Hx Substance Use: No Allergies/Home Meds Allergies/Adverse Reactions: Allergies aspirin Allergy (Verified 09/16/16 20:33) SWELLING diphenhydramine HCl [From Benadryl] Allergy (Verified 09/16/16 20:33) DIZZINESS NSAIDS (Non-Steroidal Anti-Inflamma Allergy (Verified 09/16/16 20:33) SWELLING trifluoperazine Allergy (Verified 09/16/16 20:33) DIZZINESS Home Medications: Home Meds Medication Instructions Recorded Confirmed Atorvastatin [Lipitor] 20 mg PO DAILY 09/26/16 09/26/16 Carvedilol [Coreg] 25 mg PO BID 09/26/16 09/26/16 Cetirizine HCl [Zyrtec Allergy] 10 mg PO DAILY 09/26/16 09/26/16 Gabapentin [Neurontin] 100 mg PO TID 09/26/16 09/26/16 Insulin Glargine, Recombina 48 units SC ACB 09/26/16 09/26/16 [Lantus] Losartan [Cozaar] 50 mg PO DAILY 09/26/16 09/26/16 Mometasone/Formoterol [Dulera] 2 [place]mar IH BID 09/26/16 09/26/16 Topiramate [Topamax] 100 mg PO DAILY 09/26/16 09/26/16 Topiramate [Topamax] 150 mg PO HS 09/26/16 09/26/16 Review of Systems - Review of Systems Systems not reviewed;Unavailable: Altered Mental Status Respiratory: absent: SOB Cardiovascular: absent: Chest Pain Gastrointestinal: absent: Abdominal Pain Physical Exam Vital Signs Temp Pulse Resp BP Pulse Ox 09/26/16 21:23 86 16 123/63 97 09/26/16 21:12 98.1 F 09/26/16 19:10 82 16 119/54 L 99 09/26/16 16:24 93.7 F L 79 18 125/66 99 - Systems Exam Head: Present: Atraumatic, Normocephalic Pupils: Present: PERRL Conjunctiva: Present: Normal Mouth: Present: Moist Mucous Membranes Neck: Present: Normal Range of Motion Respiratory/Chest: Present: Clear to Auscultation, Good Air Exchange. No: Respiratory Distress, Accessory Muscle Use Cardiovascular: Present: Regular Rate and Rhythm. No: Murmurs Abdomen: Present: Normal Bowel Sounds. No: Tenderness, Distention, Peritoneal Signs Back: Present: Normal Inspection Upper Extremity: Present: Normal Inspection, NORMAL PULSES. No: Cyanosis, Edema Lower Extremity: Present: Normal Inspection. No: Edema Neurological: Present: GCS=15, CN II-XII Intact, Speech Normal, Other (No focal deficits) Skin: Present: Warm, Dry, Normal Color. No: Rashes Psychiatric: Present: Normal Concentration, Other (Disoriented to time) Medical Decision Making ED Course and Treatment: EKG shows NSR at 76 BPM, normal axis, normal intervals, no acute ischemia Chest x-ray read by me shows no acute findings Disc w Dr Padilla who will admit for observation - Lab Interpretations Lab Results: 09/26/16 19:42 09/26/16 19:42 Lab Results 09/26/16 19:42: WBC 6.8 D, RBC 3.65, Hgb 10.8 L, Hct 32.7 L, MCV 89.6, MCH 29.6 , MCHC 33.0, RDW 14.0, Plt Count 221, MPV 9.4, Gran % 77.2 H, Lymph % (Auto) 18.9 L, [place] % (Auto) 3.2, Eos % (Auto) 0.4 L, Baso % (Auto) 0.3, Gran # 5.23, Lymph # 1.3, [place] # 0.2, Eos # 0.0, Baso # 0.02, Sodium 136, Potassium 4.0, Chloride 102, Carbon Dioxide 28, Anion Gap 10, BUN 26 H, Creatinine 0.9, Est GFR ( Amer) > 60, Est GFR (Non-Af Amer) > 60, Random Glucose 79, Calcium 9.0, Total Bilirubin 0.5, AST 40 H, ALT 38, Alkaline Phosphatase 101, Troponin I < 0.01, Total Protein 7.6, Albumin 3.7, Globulin 4.0, Albumin/Globulin Ratio 0.9 L 09/26/16 19:02: pO2 31, VBG pH 7.25 L, VBG pCO2 62.0 H, VBG HCO3 27.2, VBG Total CO2 29.1 H, VBG O2 Sat (Calc) 61.9, VBG Base Excess -1.4 L, VBG Potassium 5.5 H, Glucose 71, Lactate 1.4, FiO2 21.0, Sodium 138.0, Chloride 109.0 H, Venous Blood Potassium 5.5 H 09/26/16 18:54: POC Glucose (mg/dL) 72 09/26/16 18:47: Urine Color Yellow, Urine Appearance Cloudy, Urine pH 7.5, Ur Specific [place] 1.020, Urine Protein Trace H, Urine Glucose (UA) 100 H, Urine Ketones Negative, Urine Blood Trace-intact H, Urine Nitrate Negative, Urine Bilirubin Negative, Urine Urobilinogen 0.2, Ur Leukocyte Esterase Trace H, Urine RBC 0 - 2, Urine WBC 1 - 3, Ur Epithelial Cells Many, Amorphous Sediment Small, Urine Bacteria Many - RAD Interpretation Radiology Orders: 09/26/16 16:26 CHEST PORTABLE [RAD] Stat - EKG Interpretation Interpreted by ED Physician: Yes Type: 12 lead EKG - Medication Orders Current Medication Orders: Dextrose/Sodium Chloride (Dextrose 5%/0.9% Ns 1000 Ml) 1,000 mls @ 100 mls/hr IV .Q10H LELIA Last Admin: 09/26/16 21:40 Dose: 100 MLS/HR eMAR Start Stop Document 09/26/16 21:40 SF (Rec: 09/26/16 21:40 SF [id number]) Intravenous Solution Start Date 09/26/16 Start Time 21:40 End Date 09/27/16 - Scribe Statement The provider has reviewed the documentation as recorded by the Denis Tripp Provider Scribe Attestation: All medical record entries made by the Yrnibe were at my direction and personally dictated by me. I have reviewed the chart and agree that the record accurately reflects my personal performance of the history, physical exam, medical decision making, and the department course for this patient. I have also personally directed, reviewed, and agree with the discharge instructions and disposition. Disposition/Present on Arrival - Present on Arrival Any Indicators Present on Arrival: Yes History of DVT/PE: No History of Uncontrolled Diabetes: Yes Urinary Catheter: No History of Decub. Ulcer: No History Surgical Site Infection Following: None - Disposition Have Diagnosis and Disposition been Completed?: Yes Diagnosis: Hypoglycemia, Hypothermia Disposition: HOSPITALIZED Disposition Time: 20:36 Patient Problems: Current Active Problems Problem Status Diagnosed DKA (diabetic ketoacidoses) Acute Condition: STABLE
--- NOTE | 2016-09-26 17:40 | RAD ---
HISTORY: ams COMPARISON: Chest x-ray performed 09/15/16 TECHNIQUE: Chest, one view. FINDINGS: Examination limited by habitus and hypoinflation. LUNGS: Mild pulmonary venous congestion. No focal consolidation. Please note that chest x-ray has limited sensitivity for the detection of pulmonary masses. PLEURA: No significant pleural effusion identified. No definite pneumothorax . CARDIOVASCULAR: Heart size appears top normal. OSSEOUS STRUCTURES: Osseous demineralization. Degenerative changes. VISUALIZED UPPER ABDOMEN: Right upper quadrant surgical clips. OTHER FINDINGS: None. IMPRESSION: Mild pulmonary venous congestion.
[2016-09-26 19:14] LABS: PH,URINE 7.5 (4.7-8.0); URINE BILIRUBIN NEGATIVE (NEGATIVE); URINE BLOOD TRACE-INTACT (NEGATIVE); URINE GLUCOSE (UA) 100 mg/dL (NEGATIVE); URINE KETONE NEGATIVE (NEGATIVE); URINE LEUKOCYTE ESTERASE TRACE Leu/uL (NEGATIVE); URINE PROTEIN TRACE mg/dL (<30 mg/dL); URINE UROBILINOGEN 0.2 E.U./dL (<1 E.U./dL)
[2016-09-26 19:15] LABS: URINE APPEARANCE CLOUDY (CLEAR); URINE COLOR YELLOW (YELLOW)
[2016-09-26 19:15] LABS: VENOUS BLOOD GAS BASE EXCESS -1.4 mmol/L (0.0-2.0); VENOUS BLOOD PH 7.25 (7.32-7.43)
[2016-09-26 19:25] LABS: URINE BACTERIA MANY (NEG); URINE EPITHELIAL CELLS MANY /hpf (0-5); URINE RBC 0 - 2 /hpf (0-2)
[2016-09-26 19:26] LABS: URINE AMORPHOUS SEDIMENT SMALL
[2016-09-26 19:52] LABS: ADD MANUAL DIFF? NO
[2016-09-26 19:58] LABS: BASO # 0.02 K/mm3 (0.0-2.0); BASO % 0.3 % (0.0-3.0); EOS % 0.4 % (1.5-5.0); GRAN # 5.23 (1.4-6.5); GRAN % 77.2 % (50.0-68.0); HEMATOCRIT 32.7 % (36.0-48.0); LYMPH # 1.3 (1.2-3.4); LYMPH % 18.9 % (22.0-35.0); MEAN CELL VOLUME 89.6 fL (80.0-105.0); MEAN CORPUSCULAR HEMOGLOBIN 29.6 pg (25.0-35.0); MEAN PLATELET VOLUME 9.4 fl (7.0-11.0); MONO # 0.2 (0.1-0.6); MONO % 3.2 % (1.0-6.0); PLATELET COUNT 221 10^3/uL (120.0-450.0); WHITE BLOOD COUNT 6.8 10^3/ul (4.5-11.0)
[2016-09-26 20:11] LABS: ALB/GLOB RATIO 0.9 (1.1-1.8); ALKALINE PHOSPHATASE 101 U/L (38-133); ALT/SGPT 38 U/L (7-56); AST/SGOT 40 U/L (15-39); BILIRUBIN,TOTAL 0.5 mg/dL (0.2-1.3); BLOOD UREA NITROGEN 26 mg/dL (7-21); CARBON DIOXIDE 28 mmol/L (21-33); CHLORIDE 102 mmol/L (98-107); GFR AFRICAN-AMERICAN > 60; GLUCOSE,RANDOM 79 mg/dL (70-110); SODIUM 136 mmol/L (132-148); TOTAL PROTEIN 7.6 g/dL (5.8-8.3)
[2016-09-26 20:22] LABS: TROPONIN I < 0.01 ng/mL
[2016-09-26] MEDS: Dextrose 5%/0.9% NS 1,000 ML IV SCH (21:40)
[2016-09-27] MEDS: Dextrose 5%/0.9% NS 1,000 ML IV SCH (07:57)
[2016-09-27] MEDS: Insulin Reg-LOW-Coverage SC SCH ×2 (07:58→11:32)
--- NOTE | 2016-09-27 11:23 | CARD ---
APPROVED REPORT EKG Measurement Heart [id number] <Conclusion> Normal sinus rhythm Normal ECG
--- NOTE | 2016-09-27 13:20 | HP ---
HISTORY OF PRESENT ILLNESS: The patient is a 61-year-old female with a history of type 1 diabetes an d recurrent admissions for diabetic ketoacidosis who presents with altered mental status due to hypog lycemia. The patient was admitted to medical surgical floor, is currently receiving IV D5W and with Accu-Cheks for glucose monitoring. The patient denies chest pain, shortness of breath. There is no cough, no fever, no chills, no nausea, no vomiting, no diarrhea, no rash. PAST MEDICAL HISTORY: Type 1 diabetes with recurrent DKA, hypertension, hypertensive cardiovascular disease, congestive heart failure, COPD, CVA. PAST SURGICAL HISTORY: Includes back surgery in 1963, status post lumbar laminectomy and fusion. Th e patient has a history of cholecystectomy and total abdominal hysterectomy and bilateral salpingo-oo phorectomy. ALLERGIES: INCLUDE ASPIRIN, BENADRYL, STELAZINE AND CORTISONE. CURRENT MEDICATIONS: Include Plavix 75 mg daily, Protonix 40 mg daily, Levemir 50 units at bedtime, and Humalog 24 units t.i.d. a.c. SOCIAL HISTORY: The patient has no history of tobacco or alcohol use. She has a history of bipolar disorder and schizophrenia in the past. REVIEW OF SYSTEMS: As above. PHYSICAL EXAMINATION: GENERAL: The patient is a well-developed female in no acute distress. VITAL SIGNS: Blood pressure 137/70, temperature 98.4, pulse 95, respiratory rate 18. HEENT: Head is normocephalic, atraumatic. Pupils equal, round and reactive to light. Extraocular m ovements intact. NECK: Supple, with no carotid bruit, no adenopathy, no thyromegaly. LUNGS: Clear. HEART: Regular rate and rhythm. ABDOMEN: Soft, nontender, bowel sounds are normoactive. EXTREMITIES: Without cyanosis, clubbing, or edema. NEUROLOGIC: The patient is awake and responsive without focal, sensory or motor deficits. SKIN: Warm and dry. LABORATORY DATA: WBC 6.8, hemoglobin 10.8, hematocrit 32.7. Sodium 136, potassium 4.0, chloride 102 , CO2 of 28, BUN 26, creatinine 0.9, glucose 79. Chest x-ray shows mild pulmonary venous congestion. IMPRESSION: 1. Altered mental status secondary to hypoglycemia. 2. Type 1 diabetes mellitus with history of recurrent diabetic ketoacidosis. 3. Chronic obstructive pulmonary disease. 4. Hypertension, hypertensive cardiovascular disease, and mild congestive heart failure. 5. Degenerative joint disease. 6. Chronic schizophrenia/bipolar disorder. PLAN: We will admit patient to the medical surgical floor. We will monitor Accu-Cheks. We will obt seamus an endocrinology consult from Dr. Polly Carrillo. Social work for discharge planning. Socrates Padilla JD, MD cc: [phone] TT: 09/27/2016 13:19:37 jn
[2016-09-27] MEDS: Sodium Chloride 0.45% 1,000 ML IV SCH (14:14)
--- NOTE | 2016-09-27 15:09 | CON ---
DATE: 09/27/2016 ROOM: 375 HISTORY OF PRESENT ILLNESS: This is a 61-year-old female with recent uncontrolled type 2 insulin-req uiring diabetes, presenting now with symptomatic hypoglycemia related to very variable oral intake wi th supervening altered mental status and associated hypotension at this time and has now been readmit kb for closer hemodynamic and metabolic followup. PAST MEDICAL HISTORY: As mentioned above, history of type 2 insulin-requiring diabetes, discharged a few days ago on a basal and bolus insulin drug combination as given. She admits to recent variable and suboptimal oral intake on the day of admission and gave the exact same insulin dose regimen as no kb. History of hypertensive cardiovascular disease, dyslipidemia, history of chronic schizoaffectiv e disorder on psychotropic medication, history of hypertensive cardiovascular disease and dyslipidemi a as mentioned. FAMILY HISTORY: Positive for hypertension and diabetes. SOCIAL HISTORY: The patient has supportive family. No known substance use. REVIEW OF SYSTEMS: As mentioned above, admits to generalized body weakness with easy fatigability an d tiredness and suboptimal energy level. Also admits to episodic dizziness and lightheadedness, wors e on the day of admission. No chest pains or palpitations or PNDs. Her oral intake is variable and changes on a day-to-day basis as noted, also the patient describes habitual constipation. No recent alterations of bowel or urinary patterns. PHYSICAL EXAMINATION: GENERAL: An overweight female in no apparent distress. VITAL SIGNS: Blood pressure 140/80, pulse of 70 beats per minute and regular, temperature 98, respir ations 20. Height is 5 feet 10 inches, weight is 216 pounds. HEENT: Head normocephalic. Eyes anicteric with pink conjunctivae. Fundoscopy not possible at this time. Ears, nose and throat otherwise normal. NECK: Supple. Thyroid gland is normal size. No carotid bruits. No cervical adenopathy. CARDIOPULMONARY: Some adynamic precordium. S1, S2 is rapid and regular. LUNGS: Clear to auscultation. ABDOMEN: Obese, soft with positive bowel sounds. EXTREMITIES: No peripheral edema. Pulses are +2 bilaterally. LABORATORY DATA: The initial chemistries showed a BUN of 26, sodium 136, potassium 4.0, chloride 102 , CO2 28, glucose 79 and creatinine 0.9. Her glucose noted over the past few hours today have ranged from 295 to 317 and 348 mg/dL. ASSESSMENT: This is a 61-year-old female with recent uncontrolled type 2 insulin-requiring diabetes with underlying insulin resistance and hefty insulin requirements presenting here with symptomatic hy poglycemia and associated neuroglycopenia and hyperadrenergic manifestations related to the aforement ioned. She was given D50 bolus injections and dextrose infusions as noted thereof. However, at this time we can see that she has supervening hyperglycemic accelerations requiring the initiation of the basal and bolus insulin regimen she was taking at home. We will start low dose regimens combination and then titrate incrementally to optimize metabolic control. We will start her on Levemir given as 30 units subQ at bedtime daily to start tonight. We will add Humalog given as 12 units subQ t.i.d. before meals as ordered. We will titrate incrementally as indicated to optimize metabolic control. We will also add half normal saline 1 liter at 100 mL per hour because of supervening prerenal azotem ia and underlying dehydration as noted. PLAN OF MANAGEMENT: We will obtain serial chemistries and supplement accordingly as needed and also we will obtain a hemoglobin A1c to confirm her prior glycemic control and baseline thyroid function s tudies as ordered. We will consult with our diabetic nurse educator regarding the dilemma of her saf ety of giving her insulin regimen at home by herself with variable appetite and the need to adjust he r insulin dose regimen accordingly. We will also consult renal social worker regarding the jose manuel d. We will follow. Polly Carrillo MD cc: [id number] TT: 09/27/2016 15:08:01 Confirmation # [id number] Dictation # [id number]
[2016-09-27] MEDS: Insulin Lispro 1 UNITS/0.01 ML SC SCH (16:28)
[2016-09-27] MEDS: Insulin Lispro (humaLOG) LOW Coverage SC SCH ×2 (16:29→22:42)
--- NOTE | 2016-09-27 19:10 | CP.PCM.CON ---
History of Present Illness - History of Present Illness History of Present Illness: Infectious Disease Consultation: September 27, 2016 61 yo female with extensive past medical history of diabetes mellitus, hypertension, and CVA presented with altered mental status. The patient is unable to add any additional history and and does not recall how she came to [facility] [place] The patient has a history of hospitalizations to [facility] [place]. PMHx: diabetes mellitus, hypertension, CVA, dyslipidemia, hypertensive cardiovascular disease, schizoaffective disorder, COPD. PSHx: Cholecystectomy, Hysterectomy, Neck surgery, left leg surgery, post lumbar laminectomy and fusion, ROXANNE with bilateral salpingo-oophorectomy Allergies: ASA, diphenhydramine, NSAIDS, trifluoperazine Social Hx: NO tobacco, EtOH, or illicit drug use Active Medications Clopidogrel Bisulfate (Plavix) 75 mg PO DAILY [facility] Last Admin: 09/27/16 14:14 Dose: 75 mg Sodium Chloride (Sodium Chloride 0.45%) 1,000 mls @ 100 mls/hr IV .Q10H [facility] Last Admin: 09/27/16 14:14 Dose: 100 mls/hr Insulin Detemir (Levemir) 30 unit SC HS [facility] Insulin Human Lispro (Humalog Low) 0 units SC ACHS [facility] PRN Reason: Protocol Last Admin: 09/27/16 16:29 Dose: Not Given Insulin Human Lispro (Humalog) 12 units SC AC [facility] Last Admin: 09/27/16 16:28 Dose: 12 units Pantoprazole Sodium (Protonix Ec Tab) 40 mg PO 0630 [facility] Family Hx: none given ROS: Patient is unable to say... she does not remember. Past Patient History - Infectious Disease Hx of Infectious Diseases: None - Tetanus Immunizations Tetanus Immunization: Unknown - Past Social History Smoking Status: Former Smoker - CARDIAC Hx Cardiac Disorders: Yes Hx Hypertension: Yes - PULMONARY Hx Chronic Obstructive Pulmonary Disease (COPD): Yes - NEUROLOGICAL HX Cerebrovascular Accident: No - HEENT Hx Blind: Yes (patient reports she is legally blind) - RENAL Hx Renal Failure: No - ENDOCRINE/METABOLIC Hx Diabetes Mellitus Type 1: Yes Other/Comment: neuropathy - HEMATOLOGICAL/ONCOLOGICAL Hx Cancer: No - INTEGUMENTARY Hx Dermatological Problems: No - MUSCULOSKELETAL/RHEUMATOLOGICAL Hx Arthritis: No Hx Rheumatoid Arthritis: No - GASTROINTESTINAL Hx Gastrointestinal Disorders: No - GENITOURINARY/GYNECOLOGICAL Hx Genitourinary Disorders: No Hx Reproductive Disorders: No - PSYCHIATRIC Hx Psychophysiologic Disorder: Yes Hx Substance Use: No Other/Comment: PREVIOUSLY ON STELAZINE - SURGICAL HISTORY Hx Cholecystectomy: Yes Hx Hysterectomy: Yes Hx Orthopedic Surgery: Yes (NECK, L LEG,BACK) - ANESTHESIA Hx Anesthesia: Yes Hx Anesthesia Reactions: No Hx Malignant Hyperthermia: No Meds Allergies/Adverse Reactions: Allergies Allergy/AdvReac Type Severity Reaction Status Date / Time aspirin Allergy SWELLING Verified 09/16/16 20:33 diphenhydramine HCl Allergy DIZZINESS Verified 09/16/16 20:33 [From Benadryl] NSAIDS (Non-Steroidal Allergy SWELLING Verified 09/16/16 20:33 Anti-Inflamma trifluoperazine Allergy DIZZINESS Verified 09/16/16 20:33 - Medications Medications: Current Medications Clopidogrel Bisulfate (Plavix) 75 mg PO DAILY [facility] Last Admin: 09/27/16 14:14 Dose: 75 mg Sodium Chloride (Sodium Chloride 0.45%) 1,000 mls @ 100 mls/hr IV .Q10H [facility] Last Admin: 09/27/16 14:14 Dose: 100 mls/hr Insulin Detemir (Levemir) 30 unit SC HS [facility] Insulin Human Lispro (Humalog Low) 0 units SC ACHS [facility] PRN Reason: Protocol Last Admin: 09/27/16 16:29 Dose: Not Given Insulin Human Lispro (Humalog) 12 units SC AC [facility] Last Admin: 09/27/16 16:28 Dose: 12 units Pantoprazole Sodium (Protonix Ec Tab) 40 mg PO 0630 [facility] Physical Exam - Constitutional Appears: Non-toxic, No Acute Distress - Head Exam Head Exam: ATRAUMATIC, NORMOCEPHALIC - Eye Exam Eye Exam: EOMI, PERRL Pupil Exam: NORMAL ACCOMODATION, PERRL - ENT Exam ENT Exam: Mucous Membranes Moist, Normal External Ear Exam, TM's Normal Bilaterally - Neck Exam Neck exam: Positive for: Full Rom, Normal Inspection - Respiratory Exam Respiratory Exam: Clear to Auscultation Bilateral, NORMAL BREATHING PATTERN. absent: Rales, Rhonchi, Wheezes - Cardiovascular Exam Cardiovascular Exam: REGULAR RHYTHM, RRR, +S1, +S2 - GI/Abdominal Exam GI & Abdominal Exam: Normal Bowel Sounds, Soft. absent: Distended, Tenderness - Extremities Exam Extremities exam: Positive for: full ROM, normal inspection - Neurological Exam Neurological exam: Alert, CN II-XII Intact, Oriented x3 - Psychiatric Exam Psychiatric exam: Normal Affect, Normal Mood - Skin Skin Exam: Intact, Normal Color Results - Vital Signs Recent Vital Signs: Last Vital Signs Temp 97.6 F 09/27/16 15:59 Pulse 90 09/27/16 15:59 Resp 20 09/27/16 15:59 BP 136/74 09/27/16 15:59 Pulse Ox 98 09/27/16 15:59 - Labs Result Diagrams: 09/26/16 19:42 09/26/16 19:42 Labs: Laboratory Results - last 24 hr 09/26/16 09/26/16 09/27/16 20:50 23:00 07:25 POC Glucose (mg/dL) 230 H 317 H 295 H 09/27/16 11:25 POC Glucose (mg/dL) 348 H Assessment & Plan - Assessment and Plan (Free Text) Assessment: 61 yo female presenting with AMS likely secondary to hypoglycemia. Question of UTI. Urinalysis showing a potential for UTI. Started on no antibiotics at this time. No fevers or leukocytosis. Patient appears back to her normal self. Would hold antibiotics for now and recheck U/A in the morning while monitoring fever trends and possible leukocytosis. Supportive care. Thank you for allowing me to participate in the care of the patient, we will follow with you.
[2016-09-27] MEDS: Insulin Detemir 100 units/ml Vial (Levemir) SC SCH (22:43)
[2016-09-28] MEDS: Sodium Chloride 0.45% 1,000 ML IV SCH ×2 (00:18→20:07)
[2016-09-28] MEDS: Pantoprazole 40 mg EC Tab PO SCH (05:36)
[2016-09-28 07:32] LABS: ALB/GLOB RATIO 0.9 (1.1-1.8); ALKALINE PHOSPHATASE 97 U/L (38-133); ALT/SGPT 36 U/L (7-56); AST/SGOT 26 U/L (15-39); BILIRUBIN,TOTAL 0.5 mg/dL (0.2-1.3); BLOOD UREA NITROGEN 14 mg/dL (7-21); CALCIUM 8.5 mg/dL (8.4-10.5); CARBON DIOXIDE 25 mmol/L (21-33); CHLORIDE 107 mmol/L (98-107); CHOLESTEROL 191 mg/dL (130-200); GFR AFRICAN-AMERICAN > 60; GLUCOSE,RANDOM 133 mg/dL (70-110); POTASSIUM 3.8 mmol/L (3.6-5.0); SODIUM 138 mmol/L (132-148); TOTAL PROTEIN 7.3 g/dL (5.8-8.3)
[2016-09-28] MEDS: Insulin Lispro (humaLOG) LOW Coverage SC SCH ×4 (07:42→21:47)
[2016-09-28] MEDS: Insulin Lispro 1 UNITS/0.01 ML SC SCH ×3 (07:59→16:58)
--- NOTE | 2016-09-28 13:42 | PN ---
DATE: 09/28/2016 ROOM: 375 This is a 61-year-old female with recent uncontrolled type 2 insulin-requiring diabetes with extremes of glycemic fluctuations ranging from hypo to hyperglycemia and is now being followed closely for me tabolic management. Her oral intake seems to be improving at this time and the latest glucose levels today have ranged fr om 116-150 mg/dL. The latest chemistry showed a BUN of 14, sodium 138, potassium 3.8, chloride 107, CO2 25, glucose 133 and creatinine 0.8. So at this time, we will continue the same basal and bolus insulin regimen to allow for dose equilibr ation and keep her on the Humalog given as 12 units subQ t.i.d. before meals as ordered. We will als o continue his basal insulin given as Levemir at 30 units subQ at bedtime daily as given. We will ti trate incrementally as indicated to optimize metabolic control. We will continue the low-dose correc tion scale using Humalog insulin as given to obviate hypoglycemia. We will consult our diabetic nurs e educator regarding the variability of the patient's oral intake and also the variability of her ins ulin dose regimen, which has to be adjusted accordingly at home. account services associate will also be consul kb regarding the need for a visiting nurse to help monitor her glucose levels on a weekly basis and to notify us for extremes of glycemic fluctuations. We will follow. Polly Carrillo MD cc: [phone] TT: 09/28/2016 13:41:58 Confirmation # [id number] Dictation # [id number] en
--- NOTE | 2016-09-28 15:36 | CP.PCM.PN ---
Subjective - Date & Time of Evaluation Date of Evaluation: 09/28/16 Time of Evaluation: 14:30 - Subjective Subjective: Infectious Disease Follow Up: September 28, 2016 61 yo female with extensive past medical history of diabetes mellitus, hypertension, and CVA presented with altered mental status. The patient is unable to add any additional history and and does not recall how she came to [facility] [place]. The patient has a history of hospitalizations to [facility] [place]. Possible UTI - 10,000-50,000 CFU/ml Objective - Vital Signs/Intake and Output Vital Signs (last 24 hours): Temp Pulse Resp BP Pulse Ox 97.6 F 90 20 136/74 98 09/27/16 15:59 09/27/16 15:59 09/27/16 15:59 09/27/16 15:59 09/27/16 15:59 Intake and Output: 09/28/16 09/28/16 06:59 18:59 Intake Total 2220 Output Total 1500 Balance 720 - Medications Medications: Current Medications Acetaminophen (Tylenol 325mg Tab) 650 mg PO Q6H PRN PRN Reason: Pain, moderate (4-7) Clopidogrel Bisulfate (Plavix) 75 mg PO DAILY [facility] Last Admin: 09/28/16 09:15 Dose: 75 mg Sodium Chloride (Sodium Chloride 0.45%) 1,000 mls @ 100 mls/hr IV .Q10H [facility] Last Admin: 09/28/16 00:18 Dose: 100 mls/hr Insulin Detemir (Levemir) 30 unit SC HS [facility] Last Admin: 09/27/16 22:43 Dose: 30 unit Insulin Human Lispro (Humalog Low) 0 units SC ACHS [facility] PRN Reason: Protocol Last Admin: 09/28/16 11:30 Dose: Not Given Insulin Human Lispro (Humalog) 12 units SC AC [facility] Last Admin: 09/28/16 11:31 Dose: Not Given Pantoprazole Sodium (Protonix Ec Tab) 40 mg PO 0630 [facility] Last Admin: 09/28/16 05:36 Dose: 40 mg - Labs Labs: 09/28/16 07:05 - Constitutional Appears: Non-toxic, No Acute Distress - Head Exam Head Exam: ATRAUMATIC, NORMOCEPHALIC - Eye Exam Eye Exam: EOMI, PERRL Pupil Exam: NORMAL ACCOMODATION, PERRL - ENT Exam ENT Exam: Mucous Membranes Moist, Normal External Ear Exam, TM's Normal Bilaterally - Neck Exam Neck Exam: Full ROM, Normal Inspection - Respiratory Exam Respiratory Exam: Clear to Ausculation Bilateral, NORMAL BREATHING PATTERN. absent: Rales, Rhonchi, Wheezes - Cardiovascular Exam Cardiovascular Exam: REGULAR RHYTHM, RRR, +S1, +S2 - GI/Abdominal Exam GI & Abdominal Exam: Soft, Normal Bowel Sounds. absent: Distended, Tenderness - Extremities Exam Extremities Exam: Full ROM, Normal Inspection - Neurological Exam Neurological Exam: Alert, Awake, CN II-XII Intact, Oriented x3 - Psychiatric Exam Psychiatric exam: Normal Affect, Normal Mood - Skin Skin Exam: Intact, Normal Color Assessment and Plan - Assessment and Plan (Free Text) Assessment: 61 yo female presenting with AMS likely secondary to hypoglycemia. Question of UTI. Urinalysis showing a potential for UTI. Started on no antibiotics at this time. No fevers or leukocytosis. Patient appears back to her normal self. Would hold antibiotics for now and recheck U/A in the morning while monitoring fever trends and possible leukocytosis. Supportive care. She remains afebrile. Thank you for allowing me to participate in the care of the patient, we will follow with you.
--- NOTE | 2016-09-28 15:38 | PN ---
DATE: 09/28/2016 SUBJECTIVE: The patient is lying in bed, in no acute distress. She denies chest pain or shortness o f breath. OBJECTIVE: VITAL SIGNS: Blood pressure 136/74, temperature 97.6, pulse 90, respiratory rate 20. LUNGS: Clear. HEART: Regular rate and rhythm. ABDOMEN: Soft, nontender, bowel sounds are normoactive. EXTREMITIES: Without cyanosis, clubbing, or edema. NEUROLOGIC: The patient is awake and oriented x 3 without focal, sensory or motor deficits. SKIN: Warm and dry. IMPRESSION: 1. Altered mental status, secondary to hypoglycemia. 2. Type 1 diabetes mellitus with recurrent ketoacidosis. 3. Chronic obstructive pulmonary disease. 4. Hypertension, hypertensive cardiovascular disease and mild congestive heart failure. 5. Degenerative joint disease. 6. Chronic schizophrenia/bipolar disorder. PLAN: Continue to monitor Accu-Cheks. Continue endocrinology followup with Dr. Carrillo. Social work fo r discharge planning in a.m. if remains stable. Socrates Padilla JD, MD cc: [phone] TT: 09/28/2016 15:38:07 Confirmation # [id number] Dictation # [id number] en
[2016-09-28 18:30] LABS: URINE BILIRUBIN NEGATIVE (NEGATIVE); URINE BLOOD NEGATIVE (NEGATIVE); URINE GLUCOSE (UA) >=1000 mg/dL (NEGATIVE); URINE KETONE NEGATIVE (NEGATIVE); URINE LEUKOCYTE ESTERASE NEGATIVE Leu/uL (NEGATIVE); URINE PROTEIN NEGATIVE mg/dL (<30 mg/dL); URINE UROBILINOGEN 0.2 E.U./dL (<1 E.U./dL)
[2016-09-28 18:31] LABS: URINE APPEARANCE CLEAR (CLEAR); URINE COLOR YELLOW (YELLOW)
[2016-09-28] MEDS: Insulin Detemir 100 units/ml Vial (Levemir) SC SCH (21:48)
[2016-09-29] MEDS: Pantoprazole 40 mg EC Tab PO SCH (05:41)
[2016-09-29] MEDS: Insulin Lispro (humaLOG) LOW Coverage SC SCH ×2 (07:56→13:14)
[2016-09-29] MEDS: Insulin Lispro 1 UNITS/0.01 ML SC SCH ×2 (08:21→13:14)
[2016-09-29] MEDS: Sodium Chloride 0.45% 1,000 ML IV SCH (08:21)
[2016-09-29 08:34] VITALS: BP 153/74; PULSE 84; RESP 18; TEMP 97.4; O2SAT 97
--- NOTE | 2016-09-29 15:47 | PN ---
DATE: 09/29/2016 ROOM: 3005 SUBJECTIVE: This is a 61-year-old female with recent uncontrolled type 2 insulin-requiring diabetes, presenting here with experienced glycemic fluctuation and is now being followed closely for metaboli c management. Her glycemic levels are fluctuating, but much improved at this time. glucose zapata s ranged from 256 to 303 mg/dL. Her hemoglobin A1c is 11.1%, clearly elevated and indicative of subo ptimal metabolic control of her diabetic condition. Her latest chemistry showed a BUN of 14, sodium 138, potassium 3.8, chloride 107, CO2 25, glucose 133, and creatinine 0.8. So, at this time, we will continue the same basal and bolus insulin regimen to allow for dose equilibration as her oral intake remains quite variable at this time. We will recommend a combination of Levemir given as 30 units s ubQ at bedtime daily as ordered. We will continue the Humalog given as 14 units subQ t.i.d. before m eals as given. We will titrate incrementally as indicated to optimize metabolic control. We will fo llow. Polly Carrillo MD cc: [phone] TT: 09/29/2016 15:46:17 Confirmation # [id number] Dictation # [id number] palak
--- NOTE | 2016-09-29 16:48 | DS ---
HOSPITAL COURSE: The patient is a 61-year-old female admitted through the Emergency Department on with hypoglycemia and altered mental status. The patient was given IV glucose and was seen i n consultation by endocrinology, Dr. Polly Carrillo. She was restarted on an insulin regimen and has had an uneventful hospital course and is now medically stable for discharge. PHYSICAL EXAMINATION: VITAL SIGNS: Blood pressure 153/74, temperature 97.4, pulse 84, respiratory rate 18. LUNGS: Clear. HEART: Regular rate and rhythm. ABDOMEN: Soft, nontender, bowel sounds are normoactive. EXTREMITIES: Without cyanosis, clubbing, or edema. NEUROLOGIC: The patient is awake and responsive without focal sensory or motor deficits. SKIN: Warm and dry. IMPRESSION: 1. Altered mental status secondary to hypoglycemia. 2. Type 1 diabetes mellitus with recurrent diabetic ketoacidosis. 3. Chronic obstructive pulmonary disease. 4. Hypertension, hypertensive cardiovascular disease and mild congestive heart failure. 5. Degenerative joint disease. 6. Chronic schizophrenia/bipolar disorder. PLAN: The patient will be discharged to home today in stable condition on the following medications: Levemir 30 units at bedtime and Humalog 14 units with meals. She will also be maintained on Plavix 75 mg daily and Protonix 40 mg daily. The patient will also be maintained on a consistent carbohydr ate, low sodium diet, activities ad libitum. She will be seen in the office for followup in the next 1-2 weeks. Socrates Padilla JD, MD cc: [phone] TT: 09/29/2016 16:47:36 [place]ak
--- NOTE | 2016-09-29 17:22 | CP.PCM.PN ---
Subjective - Date & Time of Evaluation Date of Evaluation: 09/29/16 Time of Evaluation: 12:30 - Subjective Subjective: Infectious Disease Follow Up: September 29, 2016 61 yo female with extensive past medical history of diabetes mellitus, hypertension, and CVA presented with altered mental status. The patient is unable to add any additional history and and does not recall how she came to [facility] [place]. The patient has a history of hospitalizations to [facility] [place]. Possible UTI - 10,000-50,000 CFU/ml. Multiple organisms. Possible contamination. Objective - Vital Signs/Intake and Output Vital Signs (last 24 hours): Temp Pulse Resp BP Pulse Ox 97.4 F L 84 18 153/74 H 97 09/29/16 06:00 09/29/16 06:00 09/29/16 06:00 09/29/16 06:00 09/29/16 06:00 Intake and Output: 09/29/16 09/29/16 06:59 18:59 Intake Total 420 Output Total 200 Balance 220 - Labs Labs: 09/28/16 07:05 - Constitutional Appears: Non-toxic, No Acute Distress - Head Exam Head Exam: ATRAUMATIC, NORMOCEPHALIC - Eye Exam Eye Exam: EOMI, PERRL Pupil Exam: NORMAL ACCOMODATION, PERRL - ENT Exam ENT Exam: Mucous Membranes Moist, Normal External Ear Exam, TM's Normal Bilaterally - Neck Exam Neck Exam: Full ROM, Normal Inspection - Respiratory Exam Respiratory Exam: Clear to Ausculation Bilateral, NORMAL BREATHING PATTERN. absent: Rales, Rhonchi, Wheezes - Cardiovascular Exam Cardiovascular Exam: REGULAR RHYTHM, RRR, +S1, +S2 - GI/Abdominal Exam GI & Abdominal Exam: Soft, Normal Bowel Sounds. absent: Distended, Tenderness - Extremities Exam Extremities Exam: Full ROM, Normal Inspection - Neurological Exam Neurological Exam: Alert, Awake, CN II-XII Intact, Oriented x3 - Psychiatric Exam Psychiatric exam: Normal Affect, Normal Mood - Skin Skin Exam: Intact, Normal Color Assessment and Plan - Assessment and Plan (Free Text) Assessment: 61 yo female presenting with AMS likely secondary to hypoglycemia. Question of UTI. Urinalysis showing a potential for UTI. Started on no antibiotics at this time. No fevers or leukocytosis. Patient appears back to her normal self. Would hold antibiotics for now and recheck U/A in the morning while monitoring fever trends and possible leukocytosis. Supportive care. She remains afebrile. Would maintain off antibiotics. Thank you for allowing me to participate in the care of the patient, we will follow with you.
== END 2016-09-29 13:19 | disposition home or self-care (01) ==
LOC: ED 16:11 → ERH 20:36 → 3RSO 21:47
PROVIDERS: ADMIT Internal Medicine; ATTEND Internal Medicine
DX: E13.10 Other specified diabetes mellitus with ketoacidosis without coma (principal); E11.649 Type 2 diabetes mellitus with hypoglycemia without coma; E11.40 Type 2 diabetes mellitus with diabetic neuropathy, unspecified; E78.5 Hyperlipidemia, unspecified; E86.0 Dehydration; F25.9 Schizoaffective disorder, unspecified; F31.9 Bipolar disorder, unspecified; H54.8 Legal blindness, as defined in USA; I11.0 Hypertensive heart disease with heart failure; I50.9 Heart failure, unspecified; J44.9 Chronic obstructive pulmonary disease, unspecified; M19.90 Unspecified osteoarthritis, unspecified site; Z79.899 Other long term (current) drug therapy; Z79.4 Long term (current) use of insulin; Z82.49 Family history of ischemic heart disease and other diseases of the circulatory system; Z83.3 Family history of diabetes mellitus; Z86.73 Personal history of transient ischemic attack (TIA), and cerebral infarction without residual deficits; Z87.891 Personal history of nicotine dependence; Z90.49 Acquired absence of other specified parts of digestive tract; Z90.710 Acquired absence of both cervix and uterus; Z90.722 Acquired absence of ovaries, bilateral; I95.9 Hypotension, unspecified; Z88.6 Allergy status to analgesic agent; Z88.8 Allergy status to other drugs, medicaments and biological substances; T68.XXXA Hypothermia, initial encounter; K59.00 Constipation, unspecified; E66.3 Overweight; N39.0 Urinary tract infection, site not specified; Z68.31 Body mass index [BMI] 31.0-31.9, adult
CPT/HCPCS: 36415; 71010; 80053; 80061; 81001; 81003; 82803; 82948; 83036; 84443; 84484; 85025; 87086; 93005; 99285; G0378; J7030; J7042

== ENCOUNTER 2016-12-09 10:30 | Observation (INO) | payer MEDICARE, MEDICAID, OTHER ==
[2016-12-09] MEDS ORDERED: Sodium Chloride 0.9% 1,000 ML IV STA (11:22)
--- NOTE | 2016-12-09 11:30 | ED PDOC ---
Arrival/HPI - General Historian: Patient - History of Present Illness Time/Duration: Other (2 days) Symptom Onset: Gradual Symptom Course: Unchanged Context: Home <Katie Castellano - Last Filed: 12/09/16 16:29> <Geoffrey Pedroza - Last Filed: 12/09/16 18:36> - General Chief Complaint: Dizziness/Lightheaded Time Seen by Provider: 12/09/16 11:11 - History of Present Illness Narrative History of Present Illness (Text): 12/09/16 11:24 Patient is a 61 y/o with PMH of type 1 DM, htn, bipolar, schizophrenia, seizure disorder, legally blind, COPD, and multiple admissions in the past for DKA presenting with dizziness for the past 2 days. Patient states this AM her eye care professional's nurse called and asked her how she was doing, and when she told the nurse she was feeling dizzy, the nurse called [facility]ARGAS for her. Patient is currently c/o dizziness, lightheadedness and states she feels like everything is moving. Patient denies cp, sob, n/v/d. Denies dysuria or hamaturia. Patient uses humalog pre meals and suppose to be using lantus, but states she's running out of the lantus. Patient's glucose at home was 370s. (Katie Castellano) Past Medical History - Provider Review Nursing Documentation Reviewed: Yes - Travel History Have you recently traveled outside [place] w/in the past 3 mons?: No - Infectious Disease Hx of Infectious Diseases: None - Tetanus Immunization Tetanus Immunization: Unknown - Cardiac Hx Cardiac Disorders: Yes Hx Hypertension: Yes - Pulmonary Hx Respiratory Disorders: Yes Hx Chronic Obstructive Pulmonary Disease (COPD): Yes - Neurological Hx Neurological Disorder: Yes HX Cerebrovascular Accident: Yes (left sided weakness) - HEENT Hx HEENT Disorder: Yes Hx Blind: Yes (patient reports she is legally blind) - Renal Hx Renal Disorder: No Hx Renal Failure: No - Endocrine/Metabolic Hx Endocrine Disorders: Yes Hx Diabetes Mellitus Type 1: Yes Other/Comment: neuropathy - Hematological/Oncological Hx Blood Disorders: No Hx Cancer: No - Integumentary Hx Dermatological Disorder: No - Musculoskeletal/Rheumatological Hx Musculoskeletal Disorders: No Hx Arthritis: No Hx Rheumatoid Arthritis: No - Gastrointestinal Hx Gastrointestinal Disorders: No - Genitourinary/Gynecological Hx Genitourinary Disorders: No Hx Reproductive Disorders: No - Psychiatric Hx Psychophysiologic Disorder: Yes Hx Depression: Yes Hx Substance Use: No - Surgical History Hx Cholecystectomy: Yes Hx Eye Surgery: Yes Hx Hysterectomy: Yes Hx Orthopedic Surgery: Yes (NECK, L LEG,BACK) - Anesthesia Hx Anesthesia: Yes Hx Anesthesia Reactions: No Hx Malignant Hyperthermia: No <Katie Castellano - Last Filed: 12/09/16 16:29> Family/Social History - Physician Review Nursing Documentation Reviewed: Yes Family/Social History: Diabetes Smoking Status: Former Smoker Hx Alcohol Use: No Hx Substance Use: No <Katie Castellano - Last Filed: 12/09/16 16:29> Allergies/Home Meds <Katie Castellano - Last Filed: 12/09/16 16:29> <Geoffrey Pedroza - Last Filed: 12/09/16 18:36> Allergies/Adverse Reactions: Allergies aspirin Allergy (Verified 12/09/16 10:41) ANAPHYLAXIS diphenhydramine HCl [From Benadryl] Allergy (Verified 12/09/16 10:41) ANAPHYLAXIS NSAIDS (Non-Steroidal Anti-Inflamma Allergy (Verified 12/09/16 10:41) ANAPHYLAXIS trifluoperazine Allergy (Verified 12/09/16 10:41) ANAPHYLAXIS Home Medications: Home Meds Medication Instructions Recorded Confirmed Atorvastatin [Lipitor] 20 mg PO DAILY 09/26/16 09/26/16 Carvedilol [Coreg] 25 mg PO BID 09/26/16 09/26/16 Cetirizine HCl [Zyrtec] 10 mg PO DAILY 09/26/16 09/26/16 Gabapentin [Neurontin] 100 mg PO TID 09/26/16 09/26/16 Losartan [Cozaar] 50 mg PO DAILY 09/26/16 09/26/16 Mometasone/Formoterol [Dulera 100 2 delmar IH BID 09/26/16 09/26/16 Mcg/5 Mcg Inhaler] Topiramate [Topamax] 100 mg PO DAILY 09/26/16 09/26/16 Topiramate [Topamax] 150 mg PO HS 09/26/16 09/26/16 Review of Systems - Review of Systems Constitutional: Normal Eyes: Normal ENT: Normal Respiratory: Normal Cardiovascular: Normal Gastrointestinal: Normal Genitourinary Female: Normal Musculoskeletal: Normal Skin: Normal Neurological: Dizziness. absent: Headache, Focal Weakness, Speech Changes Endocrine: Normal Hemo/Lymphatic: Normal Psychiatric: Normal <Katie Castellano - Last Filed: 12/09/16 16:29> Physical Exam Vital Signs Reviewed: Yes Temperature: Afebrile Blood Pressure: Normal Pulse: Regular Respiratory Rate: Normal Appearance: Positive for: Well-Appearing, Non-Toxic, Comfortable Pain Distress: None Mental Status: Positive for: Alert and Oriented X 3 Finger Stick Blood Glucose: 390 - Systems Exam Head: Present: Atraumatic, Normocephalic Pupils: Present: PERRL Extroacular Muscles: Present: EOMI Conjunctiva: No: Icteric Mouth: Present: Dry Neck: Present: Normal Range of Motion Respiratory/Chest: Present: Clear to Auscultation, Good Air Exchange. No: Respiratory Distress, Accessory Muscle Use, Wheezes, Rales, Retracting, Rhonchi , Tachypneic Cardiovascular: Present: Regular Rate and Rhythm, Normal S1, S2. No: Murmurs, Tachycardic, Bradycardic, Rub, Gallop Abdomen: Present: Normal Bowel Sounds, Other (obese abdomen. ). No: Tenderness , Distention, Guarding Upper Extremity: Present: Normal Inspection. No: Cyanosis, Edema Lower Extremity: Present: Normal Inspection. No: Edema Neurological: Present: GCS=15, CN II-XII Intact, Speech Normal, Motor Func Grossly Intact Skin: Present: Warm, Dry, Rashes, Normal Color Psychiatric: Present: Alert, Oriented x 3, Normal Insight, Normal Concentration <Katie Castellano - Last Filed: 12/09/16 16:29> - Systems Exam Pupils: Present: Other (visual acuity and hood at baseline as per patient) Neurological: Present: Normal Sensory Function, Memory Normal, Other (no meningeal signs, normal finger to nose, normal rapid alternating movements) <Geoffrey Pedroza - Last Filed: 12/09/16 18:36> Vital Signs Temp Pulse Resp BP Pulse Ox 12/09/16 17:58 84 18 146/70 98 12/09/16 16:00 87 16 132/77 98 12/09/16 14:00 71 18 126/60 98 12/09/16 12:43 73 17 116/56 L 96 12/09/16 10:40 98.6 F 75 18 139/55 L 99 Medical Decision Making Re-evaluation Time: 12:25 - Lab Interpretations I have reviewed the lab results: Yes - EKG Interpretation Interpreted by ED Physician: Yes Type: 12 lead EKG <Katie Castellano - Last Filed: 12/09/16 16:29> <Geoffrey Pedroza - Last Filed: 12/09/16 18:36> ED Course and Treatment: 61 y/o F with pmh TYpe 1 DM, htn, copd and bipolar, seizure disorders presenting with dizziness. Differentials: Less likely hypoglycemia 2nd to glucose of 390 in the ED R/o DKA , versus vertigo, versus orthostatic hypotension. Plan: cbc, cmp, mag, ua, cardiac enzymes. EKG, 1 L NS bolus and reevaluate. Discussed with Dr Pedroza. 12/09/16 13:24 Patient is currently c/o headache, states headache started about an hour ago. a &ox3, no focal deficit on neuro exam. CT head ordered. 12/09/16 16:30 All basic labs normal, except glucose of 226. CT head negative for acute finding. Dr Pedroza spoke to Dr Padilla, will keep patient for observation. (Katie Castellano) Patient Seen With Resident: In agreement with resident note. Patient was seen and evaluated with resident, came up with plan and treatment together. Patient reports dizziness and headache although she is afebrile and nontoxic with no motor or sensory deficits. Patient is hyperglycemic. Current exam not consistent with DKA. Patient reports she has no more insulin left. Plan is to IV hydrate and monitor blood sugar and symptoms in the emergency department. Re-exam, patient reports persistent headache, although blood sugar improved, no fever, no meningeal signs or focal motor or sensory deficits noted. Patient states to me she "almost passed out" yesterday after dizzy episode, denies trauma but reports difficulty ambulating due to dizziness. On re-exam she has unremarkable rapid alternating movements and finger to nose, although difficulty with gait, will admit for observation, serial neuro exams, case reviewed with Dr. Trista Padilla. (Geoffrey Pedroza) - Lab Interpretations Lab Results: 12/09/16 12:25 12/09/16 14:23 Lab Results 12/09/16 14:23: Sodium 138, Potassium 4.0, Chloride 103, Carbon Dioxide 30, Anion Gap 9 L, BUN 19, Creatinine 0.7, Est GFR ( Amer) > 60, Est GFR (Non -Af Amer) > 60, Random Glucose 226 H, Calcium 8.8, Magnesium 1.8, Total Bilirubin 0.4, AST 35, ALT 24, Alkaline Phosphatase 98, Lactate Dehydrogenase 465, Total Creatine Kinase 65, Troponin I < 0.01, Total Protein 7.2, Albumin 3.7 , Globulin 3.5, Albumin/Globulin Ratio 1.1 12/09/16 13:33: POC Glucose (mg/dL) 285 H 12/09/16 12:25: WBC 5.1 D, RBC 3.85, Hgb 11.3 L, Hct 34.3 L, MCV 89.1, MCH 29.4 , MCHC 32.9, RDW 12.8, Plt Count 187, MPV 9.9, Gran % 61.5, Lymph % (Auto) 29.6 , [place] % (Auto) 6.4 H, Eos % (Auto) 2.1, Baso % (Auto) 0.4, Gran # 3.15, Lymph # 1.5, [place] # 0.3, Eos # 0.1, Baso # 0.02 12/09/16 10:47: POC Glucose (mg/dL) 390 H - RAD Interpretation Narrative RAD Interpretations (Text): 12/09/16 16:33 CT head w/o contrast: FINDINGS: HEMORRHAGE: No intracranial hemorrhage. BRAIN: No mass effect or edema. Chronic microvascular changes are seen in the periventricular white matter VENTRICLES: Unremarkable. No hydrocephalus. CALVARIUM: Unremarkable. PARANASAL SINUSES: Unremarkable as visualized. No significant inflammatory changes. MASTOID AIR CELLS: Unremarkable as visualized. No inflammatory changes. OTHER FINDINGS: None. IMPRESSION: No acute findings (Katie Castellano) Radiology Orders: 12/09/16 14:29 HEAD W/O CONTRAST [CT] Stat CHEST ONE VIEW [RAD] Stat - EKG Interpretation EKG Interpretation (Text): 12/09/16 16:34 NSR at HR of 68. Possibly LA enlargement No CT and QTC prolongation Normal axis. No acute ST/T wave changes. (Katie Castellano) - Medication Orders Current Medication Orders: Discontinued Medications Acetaminophen (Tylenol 325mg Tab) 650 mg PO STAT STA Stop: 12/09/16 13:49 Last Admin: 12/09/16 14:27 Dose: 650 mg Re-Assess: MAR Pain/Vitals Document 12/09/16 15:27 ALA (Rec: 12/09/16 16:23 ALA [id number]) Pain Reassessment Is This A Pain ReAssessment? Yes Sleep Is patient sleeping during reassessment? No Presence of Pain Presence of Pain Yes Pain Scale Used Pain Scale Used Numeric Sodium Chloride (Sodium Chloride 0.9%) 1,000 mls @ 999 mls/hr IV .Q1H1M STA Stop: 12/09/16 12:22 Last Admin: 12/09/16 12:44 Dose: 999 mls/hr Disposition/Present on Arrival - Present on Arrival Any Indicators Present on Arrival: Yes History of DVT/PE: No History of Uncontrolled Diabetes: Yes Urinary Catheter: No History of Decub. Ulcer: No History Surgical Site Infection Following: None - Disposition Have Diagnosis and Disposition been Completed?: Yes Disposition Time: 15:47 Patient Plan: Observation <Katie Castellano - Last Filed: 12/09/16 16:29> - Present on Arrival Any Indicators Present on Arrival: Yes History of Uncontrolled Diabetes: Yes - Disposition Have Diagnosis and Disposition been Completed?: Yes Patient Plan: Admission, Observation, Telemetry <Geoffrey Pedroza - Last Filed: 12/09/16 18:36> - Disposition Diagnosis: Near syncope, Hyperglycemia, Headache Disposition: HOSPITALIZED Patient Problems: Current Active Problems Problem Status Onset Hyperglycemia due to type 1 diabetes mellitus Acute Near syncope Acute Condition: STABLE
[2016-12-09 12:34] LABS: ADD MANUAL DIFF? NO
[2016-12-09 12:38] LABS: BASO # 0.02 K/mm3 (0.0-2.0); BASO % 0.4 % (0.0-3.0); EOS # 0.1 (0.0-0.7); EOS % 2.1 % (1.5-5.0); GRAN # 3.15 (1.4-6.5); GRAN % 61.5 % (50.0-68.0); HEMATOCRIT 34.3 % (36.0-48.0); LYMPH # 1.5 (1.2-3.4); LYMPH % 29.6 % (22.0-35.0); MEAN CELL VOLUME 89.1 fL (80.0-105.0); MEAN CORPUSCULAR HEMOGLOBIN 29.4 pg (25.0-35.0); MEAN CORPUSCULAR HGB CONC 32.9 g/dl (31.0-37.0); MEAN PLATELET VOLUME 9.9 fl (7.0-11.0); MONO # 0.3 (0.1-0.6); MONO % 6.4 % (1.0-6.0); PLATELET COUNT 187 10^3/uL (120.0-450.0); RED CELL DISTRIBUTION WIDTH 12.8 % (11.5-14.5); WHITE BLOOD COUNT 5.1 10^3/ul (4.5-11.0)
[2016-12-09 14:43] LABS: ALB/GLOB RATIO 1.1 (1.1-1.8); ALKALINE PHOSPHATASE 98 U/L (38-133); ALT/SGPT 24 U/L (7-56); AST/SGOT 35 U/L (15-39); BILIRUBIN,TOTAL 0.4 mg/dL (0.2-1.3); BLOOD UREA NITROGEN 19 mg/dL (7-21); CALCIUM 8.8 mg/dL (8.4-10.5); CARBON DIOXIDE 30 mmol/L (21-33); CHLORIDE 103 mmol/L (98-107); GFR AFRICAN-AMERICAN > 60; GLUCOSE,RANDOM 226 mg/dL (70-110); MAGNESIUM 1.8 mg/dL (1.7-2.2); SODIUM 138 mmol/L (132-148); TOTAL PROTEIN 7.2 g/dL (5.8-8.3)
[2016-12-09 14:55] LABS: TROPONIN I < 0.01 ng/mL
--- NOTE | 2016-12-09 15:59 | CT ---
PROCEDURE: CT HEAD WITHOUT CONTRAST. HISTORY: headache, dizzy COMPARISON: 08/28/2016 TECHNIQUE: Axial computed tomography images were obtained through the head/brain without intravenous contrast. Radiation dose: Total exam DLP = 780 mGy-cm. This CT exam was performed using one or more of the following dose reduction techniques: Automated exposure control, adjustment of the mA and/or kV according to patient size, and/or use of iterative reconstruction technique. FINDINGS: HEMORRHAGE: No intracranial hemorrhage. BRAIN: No mass effect or edema. Chronic microvascular changes are seen in the periventricular white matter VENTRICLES: Unremarkable. No hydrocephalus. CALVARIUM: Unremarkable. PARANASAL SINUSES: Unremarkable as visualized. No significant inflammatory changes. MASTOID AIR CELLS: Unremarkable as visualized. No inflammatory changes. OTHER FINDINGS: None. IMPRESSION: No acute findings
--- NOTE | 2016-12-09 18:30 | CP.PCM.CON ---
History of Present Illness - History of Present Illness History of Present Illness: NEURO CONSULT NOTE: 12/09/16 CHIEF COMPLAINT: DIZZINESS AND HEADACHE HPI: 61 YEAR OLD WOMAN WITH H/O TYPE 1 DM, HTN, BIPOLAR DISORDER, SCHIZOPHRENIA, ON TOPAMAX, PROVOKED SEIZURE FROM DKA, LEGALLY BLIND, COPD, AND MULTIPLE PAST ADMISSIONS FOR DKA WAS BROUGHT TO THE HOSPITAL FOR DIZZINESS IN TERMS OF LIGHTHEADEDNESS AND SLIGHT SPINNING SENSATION OF THE ROOM WITH DIFFUSE PRESSURE HEADACHE WITH OUT AURA. HER BLOOD GLUCOSE LEVEL IS 370. CT HEAD SHOWED NO ACUTE INTRACRANIAL ABNORMALITY. LAST A1C LEVEL ON 09/29 WAS 11.1%. SHE HAS FEATURES OF DIABETIC PERIPHERAL NEUROPATHY ON PHYSICAL EXAM. ADVISE ENDOCRINE CONSULT. ROS: 14 POINT REVIEW OF SYMPTOMS IS NEGATIVE PER HPI. ALLERGIES:ASPIRIN, BENADRYL SOCIAL HISTORY: NO ILLICIT DRUG USE, SMOKING, OR ETOH USE. FAMILY: NON CONTRIBUTORY. MEDICATIONS: REVIEWED BY NURSE'S RECONCILIATION SHEET. PAST MEDICAL HISTORY: YPE 1 DM, HTN, BIPOLAR DISORDER, SCHIZOPHRENIA, ON TOPAMAX , PROVOKED SEIZURE FROM DKA, LEGALLY BLIND, COPD, AND MULTIPLE PAST ADMISSIONS FOR DKA 7 PHYSICAL EXAM: VITAL SIGNS: REVIEWED BY THE CHART GENERAL EXAM: PATIENT SEEN IN BED, IN NO ACUTE DISTRESS MORBIDLY OBESE. HEENT: PERRLA, EOMI, NECK SUPPLE, NO JVD, NO ADENOPATHY CVS: S1, S2, RRR, NO MURMURS NOTED LUNGS: CLEAR TO AUSCULTATION, NO ADVENTITIOUS SOUNDS ABDOMEN: SOFT AND NONTENDER EXTREMITIES: NO CLUBBING OR CYANOSIS. PP 2+ B/L NEURO: PT IS ALERT AND ORIENTED TO PERSON, PLACE, AND YEAR. POOR ATTENTION SPAN , SLOW THOUGHT PROCESS, RECALL TO 5 MINUTES 0/3, SPEECH IS FLUENT WITHOUT ERRORS, CN II-XII INTACT, MOTOR EXAM: NORMAL TONE, NORMAL BULK OF MUSCLE, MOVES ALL EXTREMITIES EQUALLY, NO PRONATOR DRIFT SEEN. SENSORY EXAM: DECREASEDLIGHT TOUCH, PIN PRICK UP TO CALVES B/L, PROPRIOCEPTION , DECREASED VIBRATION AT TOES AND KNEES. DEEP TENDON REFLEXES: 2+ THROUGHOUT EXCEPT 1 AT THE KNEES AND ANKLES. COORDINATION: FINGER TO NOSE IS INTACT. HEEL TO TRUJILLO IS INTACT GAIT: DEFERRED FOR NOW. LABS: REVIEWED BY THE CHART. ASSESSMENT AND PLAN: 61 YEAR OLD WOMAN WITH H/O TYPE 1 DM, HTN, BIPOLAR DISORDER, SCHIZOPHRENIA, ON TOPAMAX, PROVOKED SEIZURE FROM DKA, LEGALLY BLIND, COPD, AND MULTIPLE PAST ADMISSIONS FOR DKA WAS BROUGHT TO THE HOSPITAL FOR DIZZINESS IN TERMS OF LIGHTHEADEDNESS AND SLIGHT SPINNING SENSATION OF THE ROOM WITH DIFFUSE PRESSURE HEADACHE WITH OUT AURA. HER BLOOD GLUCOSE LEVEL IS 370. CT HEAD SHOWED NO ACUTE INTRACRANIAL ABNORMALITY. LAST A1C LEVEL ON 09/29 WAS 11.1%. SHE HAS FEATURES OF DIABETIC PERIPHERAL NEUROPATHY ON PHYSICAL EXAM DIZZINESS AND HEADACHE IS MORE RELATED TO HYPERGLYCEMIA WITH A MILD VERTIGINOUS COMPONENT. PLAN: 1. GIVEN HER RISK FACTORS, RECOMMEND PLAVIX 75MG AND ATORVASTATIN 20MG FOR STROKE PREVENTION 2. ENDOCRINE CONSULT FOR UNCONTROLLED DIABETES AND DIABETIC EDUCATION 3. MONITOR ELECTROLYTES AND CORRECT ACCORDINGLY. 4. PHYSICAL THERAPY EVALUATION FOR VESTIBULAR THERAPY FOR VERTIGO AND WILL NEED IT OUTPATIENT WELL. 5. AVOID SUDDEN MOVEMENTS AND NEEDS REDUCTION OF WEIGHT. 6. INCREASE GABAPENTIN TO 100MG QAM AND QNOON AND 300MG AT NIGHT FOR NEUROPATHIC RELIEF. THANK YOU PLEASE RECONSULT NECESSARY. SIGN OFF Cathy LANDA MD Past Patient History - Infectious Disease Hx of Infectious Diseases: None - Tetanus Immunizations Tetanus Immunization: Unknown - Past Social History Smoking Status: Former Smoker - CARDIAC Hx Cardiac Disorders: Yes Hx Hypertension: Yes - PULMONARY Hx Respiratory Disorders: Yes Hx Chronic Obstructive Pulmonary Disease (COPD): Yes - NEUROLOGICAL Hx Neurological Disorder: Yes HX Cerebrovascular Accident: Yes (left sided weakness) - HEENT Hx HEENT Problems: Yes Hx Blind: Yes (patient reports she is legally blind) - RENAL Hx Chronic Kidney Disease: No Hx Renal Failure: No - ENDOCRINE/METABOLIC Hx Endocrine Disorders: Yes Hx Diabetes Mellitus Type 1: Yes Other/Comment: neuropathy - HEMATOLOGICAL/ONCOLOGICAL Hx Blood Disorders: No Hx Cancer: No - INTEGUMENTARY Hx Dermatological Problems: No - MUSCULOSKELETAL/RHEUMATOLOGICAL Hx Musculoskeletal Disorders: No Hx Arthritis: No Hx Rheumatoid Arthritis: No - GASTROINTESTINAL Hx Gastrointestinal Disorders: No - GENITOURINARY/GYNECOLOGICAL Hx Genitourinary Disorders: No Hx Reproductive Disorders: No - PSYCHIATRIC Hx Psychophysiologic Disorder: Yes Hx Depression: Yes Hx Substance Use: No - SURGICAL HISTORY Hx Cholecystectomy: Yes Hx Eye Surgery: Yes Hx Hysterectomy: Yes Hx Orthopedic Surgery: Yes (NECK, L LEG,BACK) - ANESTHESIA Hx Anesthesia: Yes Hx Anesthesia Reactions: No Hx Malignant Hyperthermia: No Meds Allergies/Adverse Reactions: Allergies Allergy/AdvReac Type Severity Reaction Status Date / Time aspirin Allergy ANAPHYLAXIS Verified 12/09/16 10:41 diphenhydramine HCl Allergy ANAPHYLAXIS Verified 12/09/16 10:41 [From Benadryl] NSAIDS (Non-Steroidal Allergy ANAPHYLAXIS Verified 12/09/16 10:41 Anti-Inflamma trifluoperazine Allergy ANAPHYLAXIS Verified 12/09/16 10:41 Results - Vital Signs Recent Vital Signs: Last Vital Signs Temp 98.6 F 12/09/16 10:40 Pulse 84 12/09/16 17:58 Resp 18 12/09/16 17:58 BP 146/70 12/09/16 17:58 Pulse Ox 98 12/09/16 17:58 - Labs Result Diagrams: 12/09/16 12:25 12/09/16 14:23
[2016-12-09 19:44] LABS: URINE BILIRUBIN NEGATIVE (NEGATIVE); URINE BLOOD NEGATIVE (NEGATIVE); URINE GLUCOSE (UA) >=1000 mg/dL (NEGATIVE); URINE KETONE NEGATIVE (NEGATIVE); URINE LEUKOCYTE ESTERASE TRACE Leu/uL (NEGATIVE); URINE PROTEIN NEGATIVE mg/dL (<30 mg/dL); URINE UROBILINOGEN 0.2 E.U./dL (<1 E.U./dL)
[2016-12-09 19:49] LABS: URINE APPEARANCE CLEAR (CLEAR); URINE COLOR YELLOW (YELLOW)
[2016-12-09 19:52] LABS: URINE AMORPHOUS SEDIMENT FEW; URINE BACTERIA MANY (NEG); URINE EPITHELIAL CELLS MANY /hpf (0-5); URINE RBC 0 - 2 /hpf (0-2)
--- NOTE | 2016-12-09 22:13 | CARD ---
APPROVED REPORT EKG Measurement Heart [id number] <Conclusion> Normal sinus rhythm Possible Left atrial enlargement Borderline ECG
--- NOTE | 2016-12-09 22:19 | CP.PCM.PN ---
Subjective - Date & Time of Evaluation Date of Evaluation: 12/09/16 Time of Evaluation: 22:17 - Subjective Subjective: S:Seen for hyperglycemia.Has head ache , dizziness . No other complaints. Pertinent medical record was reviewed. O:Stable, not in distress. LUNGS:Normal breathing pattern. A:Hyperglycemia. Headache. Dizzienss. P:Cover as per sliding scale. Objective - Vital Signs/Intake and Output Vital Signs (last 24 hours): Temp Pulse Resp BP Pulse Ox 98.6 F 84 14 119/62 96 12/09/16 10:40 12/09/16 20:00 12/09/16 20:00 12/09/16 20:00 12/09/16 20:00 - Medications Medications: Current Medications Insulin Human Regular (Humulin R Low) 0 units SC ACHS LELIA PRN Reason: Protocol
[2016-12-09] MEDS ORDERED: Insulin Detemir 100 units/ml Vial (Levemir) SC STA (22:20)
[2016-12-09 22:26] VITALS: BMI 32.4
[2016-12-09] MEDS ORDERED: Pneumococcal 23-Valent Vaccine IM ONE (22:27)
[2016-12-09] MEDS: Insulin Reg-LOW-Coverage SC SCH (23:06)
[2016-12-10] MEDS: Insulin Reg-LOW-Coverage SC SCH ×4 (08:57→21:45)
[2016-12-10] MEDS ORDERED: Insulin Detemir 100 units/ml Vial (Levemir) SC SCH (22:00)
[2016-12-11 06:15] VITALS: RESP 20; O2SAT 99
[2016-12-11] MEDS: Insulin Reg-LOW-Coverage SC SCH ×2 (08:03→11:55)
--- NOTE | 2016-12-11 09:56 | RAD ---
HISTORY: dizziness COMPARISON: 09/26/2016 FINDINGS: LUNGS: The lungs are clear. PLEURA: No significant pleural effusion identified, no pneumothorax apparent. CARDIOVASCULAR: Normal. OSSEOUS STRUCTURES: No significant abnormalities. VISUALIZED UPPER ABDOMEN: Normal. OTHER FINDINGS: None. IMPRESSION: No active pulmonary disease.
[2016-12-11 12:12] VITALS: BP 100/57; PULSE 80; TEMP 97.4
== END 2016-12-11 19:00 | disposition home health service (06) ==
LOC: ED 10:30 → ERH 15:47 → 2RNO 21:17
PROVIDERS: ADMIT Internal Medicine; ATTEND Internal Medicine
DX: E10.10 Type 1 diabetes mellitus with ketoacidosis without coma (principal); R55 Syncope and collapse; E10.42 Type 1 diabetes mellitus with diabetic polyneuropathy; R51 Headache; I10 Essential (primary) hypertension; F31.9 Bipolar disorder, unspecified; F20.9 Schizophrenia, unspecified; J44.9 Chronic obstructive pulmonary disease, unspecified; H54.8 Legal blindness, as defined in USA; Z79.82 Long term (current) use of aspirin
CPT/HCPCS: 70450; 71010; 80053; 81001; 82550; 82948; 83615; 83735; 84484; 85025; 87086; 93005; 96360; 97116; 97162; 99285; G0378; G8978; G8979; G8980; J7040; Q0177

== ENCOUNTER 2017-04-03 12:25 | Inpatient (IN) | payer MEDICARE, OTHER ==
[2017-04-03] MEDS ORDERED: Sodium Chloride 0.9% 1,000 ML IV STA ×4 (13:04→17:40)
--- NOTE | 2017-04-03 13:10 | ED PDOC ---
Arrival/HPI - General Chief Complaint: Upper Extremity Problem/Injury Time Seen by Provider: 04/03/17 12:27 Historian: Patient, Family - History of Present Illness Narrative History of Present Illness (Text): 04/03/17 13:10 62 y/o woman w/ pmhx of schizophrenia, iddm (on 14-15 units short acting w/ lmeals only) frequent episodes/admission for dka, seizure d/o on topamx precipitated by dka , cva presents c/o 3 weeks of chronic rt UE pain, localized to bicep mostly most promimently, 10-15 minutes of dizziness and after rising from a her bed, leading her to collapse/sit down back on to her chair and call Dr. Padilla whom advised Ed presentation. Pt denies any recent symptoms of infective foci/fevers/chills/rue trauma / rue neurovascular deficits. Time/Duration: > week Symptom Onset: Sudden Symptom Course: Unchanged Quality: Aching Past Medical History - Provider Review Nursing Documentation Reviewed: Yes - Travel History Have you recently traveled outside [place] w/in the past 3 mons?: No - Infectious Disease Hx of Infectious Diseases: None - Tetanus Immunization Tetanus Immunization: Unknown - Reproductive Menopause: Yes - Cardiac Hx Cardiac Disorders: Yes Hx Hypertension: Yes - Pulmonary Hx Chronic Obstructive Pulmonary Disease (COPD): Yes - Neurological HX Cerebrovascular Accident: Yes (left sided weakness, 1979) - HEENT Hx HEENT Disorder: Yes (eyeglasses) Hx Blind: Yes (patient reports she is legally blind) - Renal Hx Renal Failure: No - Endocrine/Metabolic Hx Diabetes Mellitus Type 1: Yes (dx at 11 yrs old) - Hematological/Oncological Hx Blood Disorders: No Hx Cancer: No - Integumentary Other/Comment: multiple skin discolorations rle - Musculoskeletal/Rheumatological Hx Musculoskeletal Disorders: (left side weakness) Hx Back Pain: Yes Hx Falls: No Hx Unsteady Gait: Yes (walker) - Gastrointestinal Hx Gastrointestinal Disorders: No - Genitourinary/Gynecological Hx Genitourinary Disorders: No - Psychiatric Hx Psychophysiologic Disorder: Yes Hx Depression: Yes Hx Substance Use: No Other/Comment: no hx of bipolar or schizophrenia as per pt - Surgical History Hx Cholecystectomy: Yes Hx Hysterectomy: Yes Hx Orthopedic Surgery: Yes (NECK, L LEG,BACK) Other/Comment: cervical spine sx in 1980's pt uncertain what type of sx she had done, lower back sx insertion of rods - Anesthesia Hx Anesthesia: Yes Hx Anesthesia Reactions: No Hx Malignant Hyperthermia: No Family/Social History - Physician Review Nursing Documentation Reviewed: Yes Family/Social History: Hypertension Smoking Status: Never Smoked Hx Alcohol Use: No Hx Substance Use: No Allergies/Home Meds Allergies/Adverse Reactions: Allergies aspirin Allergy (Verified 12/09/16 10:41) ANAPHYLAXIS diphenhydramine HCl [From Benadryl] Allergy (Verified 04/03/17 12:30) ANAPHYLAXIS NSAIDS (Non-Steroidal Anti-Inflamma Allergy (Verified 04/03/17 12:30) ANAPHYLAXIS trifluoperazine Allergy (Verified 12/09/16 10:41) ANAPHYLAXIS Home Medications: Home Meds Medication Instructions Recorded Confirmed Cetirizine HCl [Zyrtec] 10 mg PO DAILY 09/26/16 12/09/16 Mometasone/Formoterol [Dulera 100 2 delmar IH BID 09/26/16 12/09/16 Mcg/5 Mcg Inhaler] Review of Systems - Physician Review All systems were reviewed & negative as marked: Yes - Review of Systems Constitutional: Normal Eyes: Normal ENT: Normal Respiratory: Normal Cardiovascular: Chest Pain Gastrointestinal: Other (epigastric pain radiating through msc region ) Genitourinary Female: Normal Musculoskeletal: Other (aforementioned ) Skin: Normal Neurological: Normal Endocrine: Normal Hemo/Lymphatic: Normal Psychiatric: Normal Physical Exam Vital Signs Reviewed: Yes Vital Signs Temp Pulse Resp BP Pulse Ox 04/03/17 12:37 98 F 80 16 149/85 98 Temperature: Afebrile Blood Pressure: Normal Pulse: Regular Respiratory Rate: Normal Appearance: Positive for: Well-Appearing, Non-Toxic, Comfortable Pain Distress: None Mental Status: Positive for: Alert and Oriented X 3 Finger Stick Blood Glucose: 482 - Systems Exam Head: Present: Atraumatic, Normocephalic Pupils: Present: PERRL Extroacular Muscles: Present: EOMI Conjunctiva: Present: Normal Mouth: Present: Moist Mucous Membranes Neck: Present: Normal Range of Motion Respiratory/Chest: Present: Clear to Auscultation, Good Air Exchange. No: Respiratory Distress, Accessory Muscle Use Cardiovascular: Present: Regular Rate and Rhythm, Normal S1, S2. No: Murmurs Abdomen: Present: Normal Bowel Sounds. No: Tenderness, Distention, Peritoneal Signs Back: Present: Normal Inspection Upper Extremity: Present: Other (rue bicep ttp, full rom through all joints, no swelling no bony deformity, no ecchymoses). No: Cyanosis, Edema Lower Extremity: Present: Normal Inspection. No: Edema Neurological: Present: GCS=15, CN II-XII Intact, Speech Normal Skin: Present: Warm, Dry, Normal Color. No: Rashes Psychiatric: Present: Alert, Oriented x 3, Normal Insight, Normal Concentration Medical Decision Making ED Course and Treatment: 04/03/17 13:28 Impression: A 62 year old female with chronic right upper extremity pain, localized to bicep , and dizziness. Plan: -- EKG -- chest xray -- Radiology right humerus -- US upper extremity -- labs -- Urinalysis -- IV fluids, Tylenol, Robaxin, Humulin -- Reassess and disposition Prior Visits: Notes and results from previous visits were reviewed. Patient last reported to the emergency department on 12/09/16 for evaluation of dizziness and lightheadedness. Patient was admitted for observation. Progress Notes: EKG: Ordered, reviewed, and independently interpreted the EKG. Rate : 91 BPM Rhythm : NSR Interpretation : No arrhythmogenic intervals, no ischemic ST-T segments 04/03/17 14:17 chest xray: Creator : Tony Prado MD FINDINGS: LUNGS: No active pulmonary disease. PLEURA: No significant pleural effusion identified. No pneumothorax apparent. CARDIOVASCULAR: Normal. OSSEOUS STRUCTURES: No significant abnormalities. VISUALIZED UPPER ABDOMEN: Normal. IMPRESSION: No active disease. 04/03/17 14:25 Right Humerus Xray: Creator: Tony Prado MD Impression: Normal radiographs of right humerus. - Lab Interpretations Lab Results: 04/03/17 12:20 04/03/17 13:35 Lab Results 04/03/17 13:35: Sodium 136, Chloride 102, Potassium 3.9, Carbon Dioxide 21, Anion Gap 17, BUN 18, Creatinine 0.9, Est GFR ( Amer) > 60, Est GFR (Non- Af Amer) > 60, Random Glucose 508 H* D, Calcium 9.3, Magnesium 2.0, Total Bilirubin 0.6, AST 17, ALT 29, Alkaline Phosphatase 132 H, Lactate Dehydrogenase 450, Total Creatine Kinase 87, Troponin I < 0.01, Total Protein 7.2, Albumin 4.1, Globulin 3.1, Albumin/Globulin Ratio 1.3 04/03/17 12:55: POC Glucose (mg/dL) 482 H* 04/03/17 12:20: pO2 34, VBG pH 7.30 L, VBG pCO2 45.0, VBG HCO3 22.1, VBG Total CO2 23.5, VBG O2 Sat (Calc) 71.2 H, VBG Base Excess -4.4 L, VBG Potassium 4.1, Sodium 136.0, Chloride 101.0, Glucose 501 H* D, Lactate 1.5, FiO2 40.0, Venous Blood Potassium 4.1 04/03/17 12:20: PT 11.4, INR 1.04, APTT 25.6 04/03/17 12:20: WBC 6.0, RBC 4.14, Hgb 12.2, Hct 35.4 L, MCV 85.5, MCH 29.5, MCHC 34.5, RDW 12.7, Plt Count 154, MPV 10.7, Gran % 68.1 H, Lymph % (Auto) 26.1 , [place] % (Auto) 2.8, Eos % (Auto) 2.3, Baso % (Auto) 0.7, Gran # 4.07, Lymph # 1.6, [place] # 0.2, Eos # 0.1, Baso # 0.04 I have reviewed the lab results: Yes - RAD Interpretation Radiology Orders: 04/03/17 12:57 CHEST TWO VIEWS (PA/LAT) [RAD] Stat 04/03/17 13:19 HUMERUS RIGHT [RAD] Stat 04/03/17 13:20 DUPLEX UPPER EXTRM VEIN RIGHT [US] Stat - EKG Interpretation Interpreted by ED Physician: Yes Type: 12 lead EKG - Medication Orders Current Medication Orders: Sodium Chloride (Sodium Chloride 0.9%) 1,000 mls @ 999 mls/hr IV .Q1H1M STA Stop: 04/03/17 15:51 Discontinued Medications Acetaminophen (Tylenol 325mg Tab) 650 mg PO STAT STA Stop: 04/03/17 13:17 Last Admin: 04/03/17 13:36 Dose: 650 mg MAR Pain/Vitals Document 04/03/17 13:36 NH (Rec: 04/03/17 13:36 MA [id number]) Pain Reassessment Is This A Pain ReAssessment? No Sleep Is patient sleeping during reassessment? No Presence of Pain Presence of Pain Yes Pain Scale Used Pain Scale Used Numeric Location Pain Location Body Site Back Description Intermittent Intensity 6 Scale Used Numeric Sodium Chloride (Sodium Chloride 0.9%) 1,000 mls @ 999 mls/hr IV .Q1H1M STA Stop: 04/03/17 14:04 Last Admin: 04/03/17 13:36 Dose: 999 mls/hr eMAR Start Stop Document 04/03/17 13:36 MA (Rec: 04/03/17 13:36 MA [id number]) Intravenous Solution Start Date 04/03/17 Start Time 13:36 Insulin Human Regular (Humulin R) 15 units SC STAT STA Stop: 04/03/17 15:03 Methocarbamol (Robaxin) 1,000 mg PO STAT STA Stop: 04/03/17 13:16 Last Admin: 04/03/17 15:01 Dose: 1,000 mg - Scribe Statement The provider has reviewed the documentation as recorded by the Denis Miller Provider Scribe Attestation: All medical record entries made by the Denis were at my direction and personally dictated by me. I have reviewed the chart and agree that the record accurately reflects my personal performance of the history, physical exam, medical decision making, and the department course for this patient. I have also personally directed, reviewed, and agree with the discharge instructions and disposition. Disposition/Present on Arrival - Present on Arrival History of DVT/PE: No History of Uncontrolled Diabetes: Yes Urinary Catheter: No History of Decub. Ulcer: No History Surgical Site Infection Following: None - Disposition Referrals: Socrates Padilla JD, MD [Primary Care Provider] - Follow up with primary Forms: trivago (O[place]i)
[2017-04-03] MEDS ORDERED: Methocarbamol 500 MG Tab PO STA (13:15)
[2017-04-03 13:52] LABS: BASO # 0.04 K/mm3 (0.0-2.0); BASO % 0.7 % (0.0-3.0); EOS # 0.1 (0.0-0.7); EOS % 2.3 % (1.5-5.0); GRAN # 4.07 (1.4-6.5); GRAN % 68.1 % (50.0-68.0); HEMATOCRIT 35.4 % (36.0-48.0); LYMPH # 1.6 (1.2-3.4); LYMPH % 26.1 % (22.0-35.0); MEAN CELL VOLUME 85.5 fl (80.0-105.0); MEAN CORPUSCULAR HEMOGLOBIN 29.5 pg (25.0-35.0); MEAN CORPUSCULAR HGB CONC 34.5 g/dl (31.0-37.0); MEAN PLATELET VOLUME 10.7 fl (7.0-11.0); MONO # 0.2 (0.1-0.6); MONO % 2.8 % (1.0-6.0); RED CELL DISTRIBUTION WIDTH 12.7 % (11.5-14.5)
[2017-04-03 14:02] LABS: ALB/GLOB RATIO 1.3 (1.1-1.8); ALKALINE PHOSPHATASE 132 U/L (38-126); ALT/SGPT 29 U/L (7-56); AST/SGOT 17 U/L (14-36); BILIRUBIN,TOTAL 0.6 mg/dL (0.2-1.3); BLOOD UREA NITROGEN 18 mg/dL (7-21); CALCIUM 9.3 mg/dL (8.4-10.5); CARBON DIOXIDE 21 mmol/L (21-33); CHLORIDE 102 mmol/L (98-107); GFR AFRICAN-AMERICAN > 60; POTASSIUM 3.9 mmol/L (3.6-5.0); SODIUM 136 mmol/L (132-148); TOTAL PROTEIN 7.2 g/dL (5.8-8.3)
[2017-04-03 14:05] LABS: VENOUS BLOOD GAS BASE EXCESS -4.4 mmol/L (0.0-2.0)
[2017-04-03 14:07] LABS: INR 1.04 (0.93-1.08); PARTIAL THROMBOPLASTIN TIME 25.6 Seconds (25.1-36.5)
--- NOTE | 2017-04-03 14:15 | RAD ---
HISTORY: chest pain COMPARISON: 12/09/2016 TECHNIQUE: Chest PA and lateral FINDINGS: LUNGS: No active pulmonary disease. PLEURA: No significant pleural effusion identified. No pneumothorax apparent. CARDIOVASCULAR: Normal. OSSEOUS STRUCTURES: No significant abnormalities. VISUALIZED UPPER ABDOMEN: Normal. OTHER FINDINGS: None. IMPRESSION: No active disease.
--- NOTE | 2017-04-03 14:15 | RAD ---
PROCEDURE: Radiographs of the right humerus. HISTORY: r/o fracture COMPARISON: None. FINDINGS: BONES: Normal. No fracture or focal lesion. SOFT TISSUES: Normal. OTHER FINDINGS: None. IMPRESSION: Normal radiographs of right humerus.
[2017-04-03 14:44] LABS: GLUCOSE,RANDOM 508 mg/dL (70-110)
[2017-04-03 14:45] LABS: TROPONIN I < 0.01 ng/mL
[2017-04-03] MEDS ORDERED: Insulin Regular 1 UNITS/0.01 ML ML SC ONE (15:00)
[2017-04-03] MEDS ORDERED: Insulin Regular 1 UNITS/0.01 ML ML SC STA (15:02)
[2017-04-03 16:49] LABS: URINE BILIRUBIN NEGATIVE (NEGATIVE); URINE BLOOD TRACE-INTACT (NEGATIVE); URINE GLUCOSE (UA) >=1000 mg/dL (NEGATIVE); URINE KETONE 40 mg/dL (NEGATIVE); URINE LEUKOCYTE ESTERASE TRACE Leu/uL (NEGATIVE); URINE PROTEIN NEGATIVE mg/dL (<30 mg/dL); URINE UROBILINOGEN 0.2 E.U./dL (<1 E.U./dL)
[2017-04-03 16:53] LABS: URINE APPEARANCE SL CLOUDY (CLEAR); URINE COLOR STRAW (YELLOW)
[2017-04-03 17:22] LABS: URINE BACTERIA FEW (NEG); URINE RBC 0 - 2 /hpf (0-2)
[2017-04-03] MEDS ORDERED: Ipratropium 0.02% Inhal Soln (0.5 mg/2.5 ml) UD IH STA (17:35)
[2017-04-03 21:04] VITALS: BMI 30.5
--- NOTE | 2017-04-03 22:46 | CARD ---
APPROVED REPORT EKG Measurement Heart [id number] <Conclusion> Normal sinus rhythm Normal ECG
[2017-04-04] MEDS: Ipratropium 0.02% Inhal Soln (0.5 mg/2.5 ml) UD IH SCH ×3 (11:11→19:27)
[2017-04-04] MEDS ORDERED: Insulin Reg-MEDIUM-Coverage SC SCH (11:30)
--- NOTE | 2017-04-04 11:43 | US ---
PROCEDURE: Right upper extremity venous US CLINICAL HISTORY: Arm pain and swelling Evaluate for deep venous thrombosis. PHYSICIAN(S): Yvon Pemberton M.D FINDINGS: The visualized rightinternal jugular vein is sonographically normal and compressible. No evidence of obstruction or thrombus is seen. The visualized segments of the right subclavian vein are patent with normal waveforms. No sonographic evidence of obstruction or thrombosis is seen. The visualized deep venous system of the proximal right upper extremity is sonographically normal and compressible. IMPRESSION: 1. No sonographic evidence for deep venous thrombosis in the visualized segments of the right upper extremity.
[2017-04-04] MEDS: Insulin Lispro 1 UNITS/0.01 ML SC SCH ×2 (11:50→17:07)
[2017-04-04] MEDS: Insulin Lispro (humaLOG) LOW Coverage SC SCH ×2 (11:53→17:07)
--- NOTE | 2017-04-04 13:26 | HP ---
HISTORY OF PRESENT ILLNESS: The patient is a 62-year-old female admitted through the emergency department on 04/03/2017 with elevated glucose levels and chest pain. The patient reports that she has had precordial chest discomfort for the past month, which is intermittent lasting several hours at a time. She reports no nausea, vomiting, no diaphoresis. She reports no shortness of breath. She reports cough. She reports pleuritic type chest pain with the cough. There is no hemoptysis, no fever, no chills. PAST MEDICAL HISTORY: Includes type 1 diabetes with recurrent admissions with diabetic ketoacidosis, hypertension, hypertensive cardiovascular disease, CHF, COPD, history of CVA in the past with no residual deficits. The patient has a history of bipolar disorder and schizophrenia. PAST SURGICAL HISTORY: Includes back surgery in the remote past with lumbar laminectomy and fusion. The patient has a history of cholecystectomy and total abdominal hysterectomy and bilateral salpingo-oophorectomy. ALLERGIES: INCLUDE ASPIRIN, BENADRYL, STELAZINE, AND CORTISONE. CURRENT MEDICATIONS: Include losartan 50 mg daily, Effexor 75 mg 3 times daily, Neurontin 100 mg 3 times daily, Plavix 75 mg daily, Topamax 100 mg twice daily. REVIEW OF SYSTEMS: Essentially as above. There is no rash, no abdominal pain, no melena, no bright red blood per rectum, no jaundice. PHYSICAL EXAMINATION: GENERAL: The patient is a well-developed female in no acute distress. VITAL SIGNS: Blood pressure 127/68, temperature 98.7, pulse 80, respiratory rate 20. HEENT: Head is normocephalic and atraumatic. Pupils are equal, round, and reactive to light. Extraocular movements are intact. NECK: Supple with no carotid bruit. No adenopathy. No thyromegaly. LUNGS: Show few scattered rhonchi. HEART: Regular rate and rhythm. ABDOMEN: Soft, nontender. Bowel sounds are normoactive. EXTREMITIES: Without cyanosis, clubbing, or edema. NEUROLOGIC: The patient is awake and responsive without focal, sensory, or motor deficits. SKIN: Warm and dry. LABORATORY DATA: WBC 6.0, hemoglobin 12.2, hematocrit 35.4. Sodium 136, potassium 3.9, chloride 102, CO2 of 21, glucose 508, BUN 18, creatinine 0.9. Chest x-ray shows no active disease. IMPRESSION: 1. Exacerbation of bronchitis. 2. Type 1 diabetes mellitus with uncontrolled diabetes, possible early diabetic ketoacidosis. 3. Chronic obstructive pulmonary disease. 4. Hypertension, hypertensive cardiovascular disease, history of congestive heart failure. 5. Degenerative joint disease. 6. Chronic schizophrenia and bipolar disorder. PLAN: The patient is admitted to telemetry unit. Troponin level is less than 0.01, CPK is 87. We will obtain cardiology consultation for evaluation of chest pain. We will continue IV fluids and insulin coverage. The patient receives Levemir 30 mg at bedtime. We will obtain endocrinology consult with Dr. Polly Carrillo, who has seen the patient in the past. Continue IV fluids, heart-healthy diet, physical therapy evaluation, and social work for discharge planning. CLAIR Hay MD
--- NOTE | 2017-04-04 13:29 | CON ---
ENDOCRINOLOGY FOLLOWUP NOTE LOCATION: Room #270. HISTORY OF PRESENT ILLNESS: This is a 62-year-old female with known history of type 2 insulin-requiring diabetes, presenting here with sudden right upper extremity pain and neuralgia and supervening dizziness and lightheadedness prompting this ER consult and subsequent admission. She was actually advised by her primary physician, Dr. Socrates Padilla to seek hospital admission because of the upper mentioned progressive bouts of dizziness and lightheadedness and generalized body weakness. PAST MEDICAL HISTORY: As mentioned above, history of type 2 insulin-requiring diabetes, currently on a combination of Levemir, given as 30 units subQ at bedtime daily with Humalog given as 14 units subQ t.i.d. before meals as ordered; history of hypertension and dyslipidemia; history of cerebrovascular disease, peripheral arterial disease and vasculopathy. Also, history of chronic schizoaffective disorder with schizophrenia and currently on psychotropic medications; history of generalized seizure disorder which was probably metabolic in etiology and currently on Topamax medication. She has had multiple hospital admissions for DKA and hyperosmolar state. FAMILY HISTORY: Positive for diabetes and hypertension. SOCIAL HISTORY: The patient has supportive family. No known substance use. REVIEW OF SYSTEMS: As mentioned above, admits to generalized body weakness with easy fatigability and tiredness and suboptimal energy level with progressive bouts of dizziness and lightheadedness, worse on the day of admission. No chest pains or palpitations or PND. Her oral intake has been variable with nausea, dyspepsia and vague upper abdominal pains. Also, admits to marked polyuria and nocturia, worse in the last 2 days or so prior to admission. Extremities showed lowers lower extremity nocturnal paresthesias, especially in the distal part of both lower extremities. Also, admits to recent right upper extremity pain and neuralgia as noted. PHYSICAL EXAMINATION: GENERAL: This is an overweight female, in no apparent distress. VITAL SIGNS: Blood pressure of 150/90, pulse of 70 beats per minute and regular, temperature 98, respirations 20. Height is 5 feet 10 inches, weight is 213 pounds. HEENT: Head normocephalic. Eyes anicteric with pink conjunctivae. Fundoscopy not possible at this time. Ears, nose and throat otherwise normal. NECK: Supple. Thyroid gland is normal in size. No carotid bruits or any cervical adenopathy. CARDIOPULMONARY: Adynamic precordium. S1 and S2 are rapid and regular. LUNGS: Clear to auscultation. ABDOMEN: Obese, soft with positive bowel sounds. EXTREMITIES: No peripheral edema. Pulses are +2 bilaterally. LABORATORIES: Chemistry showed a BUN of 18, sodium 136, potassium 3.9, chloride 102, CO2 of 21, glucose 508 and creatinine 0.9. Her glucose levels have ranged from 222 to 421 mg/dL and it was 482 yesterday as noted. ASSESSMENT: This is a 62-year-old female with uncontrolled and decompensated type 2 insulin-requiring diabetes with marked hyperglycemic accelerations related to a subtherapeutic insulin regimen as given. She also has diabetic microvascular complications of retinopathy and polyneuropathy with microvascular complications of cerebrovascular disease and peripheral arterial disease and vasculopathy. Plan of management was discussed with the patient and staff. We will modify her current insulin regimen and switch over to a more physiologic basal and bolus insulin drug combination with Levemir to be given at the higher dose of 40 units subQ at bedtime daily, to start tonight. We will also add Humalog, given as 10 units subQ t.i.d. before meals, to start at lunch time today as ordered. We will modify the coverage scale to obviate hypoglycemia and detailed orders have been given for Humalog with a very low-dose correction scale. We will obtain a hemoglobin A1c to confirm her control and baseline thyroid function studies will be ordered. We will also initiate diabetic education, dietary instructions especially for weight loss efforts and healthier food choices as noted. We will follow and advise accordingly. Polly Carrillo MD
[2017-04-04] MEDS: Pantoprazole 40 mg EC Tab PO SCH (17:05)
[2017-04-04] MEDS ORDERED: Insulin Detemir 100 units/ml Vial (Levemir) SC SCH ×2 (22:00)
--- NOTE | 2017-04-05 02:07 | CON ---
DATE: 04/04/2017 LOCATION: The patient is in room 270, bed 1. REASON FOR CONSULTATION: Chest pain and hypertension. HISTORY OF PRESENT ILLNESS: A 62-year-old female who known to have hypertension and type 1 diabetes mellitus started at age 11, admitted with history that since last few week, she was having cough and also she has a chest pain, and chest pain is mostly associated with cough on deep breathing, it is on the right chest and the patient had localized tenderness at that point of the pain. The patient also gives history of dizziness on standing. The patient has no nausea, vomiting, hematemesis, or melena. No history of GI bleeding. At present, she is denying any shortness of breath. PAST MEDICAL HISTORY: Positive for diabetes mellitus type 1 since age 11, hypertension, COPD, history of CVA in the past with no residual deficits, bipolar disorder, and schizophrenia. PAST SURGICAL HISTORY: The patient had hysterectomy, laparotomy, cataract surgery, she has also back surgery with the lumber laminectomy and fusion, and cholecystectomy. ALLERGIES: THE PATIENT IS ALLERGIC TO ASPIRIN, BENADRYL, STELAZINE, AND CORTICOSTEROIDS. CURRENT MEDICATIONS: Include losartan 50 daily, Effexor 75 mg t.i.d., Neurontin 100 mg t.i.d., Plavix 75 mg daily, and Topamax 100 mg twice daily. FAMILY HISTORY: Two sisters have coronary artery disease and type 2 diabetes mellitus. Two brothers have diabetes mellitus type 2. REVIEW OF SYSTEMS: All the system reviewed positive mentioned in the history otherwise negative. PHYSICAL EXAMINATION: VITAL SIGNS: Blood pressure 119/58, respirations 20, pulse 84, and the patient is afebrile. HEENT: Head is normocephalic. Eyes: Pupils normal. Conjunctivae normal. Nose and throat normal. NECK: JVP low. Carotids are equal. THORAX: AP diameter normal. LUNGS: Clear. Anterior chest wall, the patient has tenderness in the right chest at the area of the pain. CARDIOVASCULAR: S1 and S2. ABDOMEN: Soft and nontender. No organomegaly. EXTREMITIES: No clubbing. No cyanosis. LABORATORY DATA: Shows WBC 6.0, hemoglobin 12.2, hematocrit 35.4, and platelet 154. Sodium 136, potassium 3.9, BUN 18, and creatinine 0.9. Sugar on admission was up to 508, now it is 222, calcium 9.3, and magnesium 2.0. Bilirubin, AST and ALT normal. Troponin normal. Total protein and albumin normal. The patient's chest x-ray is clear. EKG showed regular sinus rhythm, Q in lead III, Q in lead III can be a normal variation. Venous Doppler of the legs are also normal. DIAGNOSES: Chest pain is musculoskeletal with local tenderness; excerebration of bronchitis; history of chronic obstructive pulmonary disease; type 1 diabetes mellitus, uncontrolled; hypertension; degenerative joint disease; schizophrenia; and bipolar disorder. PLAN: The patient already had echocardiogram on 08/18/2016, which showed normal size LV, mild concentric LV hypertrophy with normal LV systolic function with ejection fraction of 71%, RVSP 28 mmHg, [id number] mitral regurg. The patient is already on losartan 50 daily, Effexor 75 t.i.d., insulin has been ordered already, Neurontin 100 mg t.i.d., and Plavix 75 mg daily. The patient getting also IV fluid with potassium chloride 20 mEq 100 mL an hour, Topamax 100 mg b.i.d., Zithromax 500 mg p.o. daily, and we will add Motrin 400 mg p.o. t.i.d. for musculoskeletal pain and we will follow with you. The patient is high risk for coronary artery disease, so we will do stress test later on, but present, pain is musculoskeletal pain. We will follow with you. Tomasz Eason MD
[2017-04-05] MEDS: Insulin Lispro (humaLOG) LOW Coverage SC SCH ×5 (05:49→22:09)
[2017-04-05] MEDS: Ipratropium 0.02% Inhal Soln (0.5 mg/2.5 ml) UD IH SCH ×3 (07:38→19:39)
[2017-04-05 07:45] LABS: ALB/GLOB RATIO 1.1 (1.1-1.8); ALKALINE PHOSPHATASE 89 U/L (38-126); ALT/SGPT 25 U/L (7-56); AST/SGOT 17 U/L (14-36); BILIRUBIN,TOTAL 0.3 mg/dL (0.2-1.3); BLOOD UREA NITROGEN 13 mg/dL (7-21); CALCIUM 8.3 mg/dL (8.4-10.5); CARBON DIOXIDE 24 mmol/L (21-33); CHLORIDE 109 mmol/L (98-107); CHOLESTEROL 121 mg/dL (130-200); GFR AFRICAN-AMERICAN > 60; GLUCOSE,RANDOM 259 mg/dL (70-110); POTASSIUM 4.2 mmol/L (3.6-5.0); SODIUM 139 mmol/L (132-148); TOTAL PROTEIN 6.2 g/dL (5.8-8.3)
[2017-04-05] MEDS: Insulin Lispro 1 UNITS/0.01 ML SC SCH ×3 (08:02→17:37)
--- NOTE | 2017-04-05 08:46 | CP.PCM.PN ---
Subjective - Date & Time of Evaluation Date of Evaluation: 04/05/17 Time of Evaluation: 08:40 - Subjective Subjective: c/o sharp precordial chest discomfort, non-radiating, lasting hours, no N/V, no diaphoresis, denies SOB Objective - Vital Signs/Intake and Output Vital Signs (last 24 hours): Temp Pulse Resp BP Pulse Ox 98.8 F 85 19 162/90 H 99 04/05/17 06:00 04/05/17 06:00 04/05/17 06:00 04/05/17 06:00 04/05/17 06:00 Intake and Output: 04/05/17 04/05/17 06:59 18:59 Intake Total 1500 Output Total 350 Balance 1150 - Medications Medications: Current Medications Acetaminophen (Tylenol 325mg Tab) 650 mg PO Q6H PRN PRN Reason: Pain, Mild (1-3) Last Admin: 04/04/17 21:17 Dose: 650 mg Azithromycin (Zithromax) 500 mg PO DAILY [facility] PRN Reason: Protocol Last Admin: 04/04/17 10:02 Dose: 500 mg Clopidogrel Bisulfate (Plavix) 75 mg PO DAILY [facility] Last Admin: 04/04/17 10:02 Dose: 75 mg Gabapentin (Neurontin) 100 mg PO TID [facility] PRN Reason: Protocol Last Admin: 04/04/17 17:08 Dose: 100 mg Potassium Chloride 20 meq/ (Sodium Chloride) 1,010 mls @ 100 mls/hr IV .Q10H6M [facility] Last Admin: 04/04/17 22:07 Dose: 100 mls/hr Ibuprofen (Motrin Tab) 400 mg PO TID [facility] Last Admin: 04/04/17 17:05 Dose: 400 mg Insulin Detemir (Levemir) 40 unit SC HS [facility] Last Admin: 04/04/17 22:06 Dose: 40 unit Insulin Human Lispro (Humalog) 10 units SC AC [facility] Last Admin: 04/05/17 08:02 Dose: 10 units Insulin Human Lispro (Humalog Low) 0 units SC ACHS [facility] PRN Reason: Protocol Last Admin: 04/05/17 08:06 Dose: Not Given Ipratropium [place] (Atrovent) 0.5 mg IH TIDRESP [facility] Last Admin: 04/05/17 07:38 Dose: 0.5 mg Losartan Potassium (Cozaar) 100 mg PO DAILY [facility] Pantoprazole Sodium (Protonix Ec Tab) 40 mg PO DAILY [facility] Last Admin: 04/04/17 17:05 Dose: 40 mg Topiramate (Topamax) 100 mg PO BID [facility] PRN Reason: Protocol Last Admin: 04/04/17 17:05 Dose: 100 mg Venlafaxine HCl (Effexor) 75 mg PO TID [facility] Last Admin: 04/04/17 17:05 Dose: 75 mg - Labs Labs: 04/05/17 07:00 PT 11.4 SECONDS (9.4-12.5) 04/03/17 12:20 INR 1.04 (0.93-1.08) 04/03/17 12:20 APTT 25.6 Seconds (25.1-36.5) 04/03/17 12:20 - Respiratory Exam Respiratory Exam: Clear to Ausculation Bilateral, NORMAL BREATHING PATTERN - Cardiovascular Exam Cardiovascular Exam: REGULAR RHYTHM - GI/Abdominal Exam GI & Abdominal Exam: Soft, Normal Bowel Sounds - Neurological Exam Neurological Exam: Alert, Awake - Skin Skin Exam: Dry, Warm Assessment and Plan (1) Hyperglycemia Status: Acute (2) Type I diabetes mellitus Status: Acute (3) Chest pain Status: Acute (4) COPD (chronic obstructive pulmonary disease) Status: Acute - Assessment and Plan (Free Text) Plan: cardiology and endocrine consults appreciated, continue present treatment, social work for discharge planning
[2017-04-05] MEDS: Pantoprazole 40 mg EC Tab PO SCH (10:17)
--- NOTE | 2017-04-05 12:43 | PN ---
DATE: ENDOCRINOLOGY FOLLOWUP LOCATION: Room #270 This is a 62-year-old female with a known history of type 2 insulin-requiring diabetes, presenting here with chest pain and shortness of breath and currently undergoing cardiac workup at this time. Her glycemic levels are fluctuating, but improved and today's glucose levels have ranged from 225 to 269 mg/dL. It was 448 yesterday as noted. Her chemistry shows a BUN of 13, sodium 139, potassium 4.2, chloride 109, CO2 is 24, glucose 259, and creatinine 0.9. So, at this time, we will modify once again her basal and bolus insulin regimen and increase the Humalog to 14 units subcutaneously before meals as ordered. We will also increase the Levemir to 44 units given as basal insulin at bedtime to start tonight. We will continue the low-dose corrections using Humalog insulin as given. We will obtain serial chemistries and supplement accordingly as needed. We will follow up. Polly Carrillo MD
--- NOTE | 2017-04-05 13:45 | PN ---
DATE: 04/05/2017 LOCATION: The patient is in room 270, bed 1. REASON FOR CONSULTATION: Chest pain and hypertension and dizziness. SUBJECTIVE: The patient still has chest pain on the right chest with local tenderness, also when she lifts the arm, it is tender. She also has tenderness on the right side of the neck and right scapular area, also when she takes deep breath,she gets chest pain, history of hypertension. The patient continues to have chest pain as above with localized tenderness. Also she says, when she stands up she is dizzy. Blood pressure in three positions does not show any postural hypertension. PHYSICAL EXAMINATION: VITAL SIGNS: Blood pressure 114/78, respirations 20, pulse 119, earlier pulse was 85, and temperature 98.6. Blood pressure in three positions, lying down 127/60, sitting 105/58 and standing 128/66. HEENT: Head is normocephalic. Eyes, pupils normal. Conjunctivae normal. Nose and throat normal. NECK: JVP low. Carotids are equal. THORAX: AP diameter normal. LUNGS: Clear. CARDIOVASCULAR: S1 and S2. ABDOMEN: Soft and nontender. No organomegaly. Bowel sounds normal. EXTREMITIES: No clubbing. No cyanosis. LABORATORY DATA: Sodium 139, potassium 4.2, BUN 13, and creatinine 0.9. Sugar 259. Albumin and protein normal. AST and ALT normal. Initial troponin negative. DIAGNOSES: Chest pain, musculoskeletal with local tenderness; excerebration of bronchitis; history of chronic obstructive pulmonary disease; type 1 diabetes mellitus, which is uncontrolled; hypertension; degenerative joint disease; schizophrenia; bipolar disorder, and obesity. PLAN: The patient had echocardiogram on 08/18/2016, which finding has been described in our consultation of 04/04/2017, normal size LV ejection fraction. I started the patient on Motrin 400 mg t.i.d. yesterday, but the patient continued to have pain and she does not feel better with the pain, so I am increasing Motrin to 600 mg p.o. t.i.d., and the patient is continuing losartan 100 mg daily, Effexor 75 mg t.i.d., gabapentin 100 mg t.i.d.,Plavix 75 t.i.d., azithromycin 500 mg p.o. daily, and Protonix 40 mg daily. The patient is having pain on lifting the arm, so we will postpone the stress test until the patient is better because during the nuclear scan,the patient to lift both arms up for about 10 to 12 minutes. So, clinically pain is musculoskeletal at this moment. We will follow with you. Tomasz Eason MD
[2017-04-05] MEDS ORDERED: Dextrose 50% SYRINGE Inj (50 ml) IV STA (21:36)
[2017-04-05] MEDS ORDERED: Insulin Detemir 100 units/ml Vial (Levemir) SC SCH (22:00)
[2017-04-06] MEDS: Ipratropium 0.02% Inhal Soln (0.5 mg/2.5 ml) UD IH SCH ×3 (07:41→19:23)
[2017-04-06] MEDS: Insulin Lispro (humaLOG) LOW Coverage SC SCH ×4 (08:21→21:35)
[2017-04-06] MEDS: Insulin Lispro 1 UNITS/0.01 ML SC SCH ×3 (08:21→15:00)
[2017-04-06] MEDS: Pantoprazole 40 mg EC Tab PO SCH (09:56)
--- NOTE | 2017-04-06 14:04 | PN ---
DATE: 04/06/2017 REASON FOR CONSULTATION AND FOLLOWUP: Followup chest pain, appears musculoskeletal tenderness. The patient complain of chest pain, lifting the right arm and taking in a deep breath with some tenderness on the right side below the clavicle. SUBJECTIVE: Not in apparent distress. Tenderness in the right side of the chest noted. PHYSICAL EXAMINATION: VITAL SIGNS: As follows: Temperature afebrile, heart rate 82, blood pressure 165/77. HEENT: PERRLA. Extraocular muscles intact. NECK: Supple. No carotid bruit or thyromegaly. CHEST: Clear to auscultation. HEART: S1 and S2, regular. ABDOMEN: Soft. EXTREMITIES: Clubbing and cyanosis negative. LABORATORY DATA: Blood workup as follows: WBC 6, hemoglobin 12.2, hematocrit 35.4, platelet count 154. Chemistry shows sodium 139, potassium 4.2, chloride 109, carbon dioxide 24, anion gap of 10, BUN 13, creatinine 0.9. Total protein 6.2, albumin 3.3, albumin-globulin ratio 1.1. Total triglyceride 66, cholesterol 129, LDL 52, HDL 48, TSH 0.54. IMPRESSION: Atypical chest pain. No evidence of acute myocardial infarction, musculoskeletal tenderness in the chest. The patient is unable to do the stress test because of pain in the chest. The patient cannot lift up the arm. The patient is getting NSAID 600 mg p.o. t.i.d., we will continue. History of cerebrovascular accident, history of hypertension, history of bipolar disorder, history of schizophrenia. RECOMMENDATIONS: Continue current treatment. The patient had echocardiography on 08/18/2016 that shows normal LV size, ejection fraction of 71%, RV systolic pressure 28. Discontinue telemetry. Continue NSAID, Motrin 600 mg p.o. t.i.d. Once the patient's chest pain resolved and able to extend and raise the right hand above the head, we will scheduled stress test. Hemoglobin A1c 13.9, which shows very poorly controlled diabetes, obesity. Lifestyle modification of risk factor for coronary artery disease is recommended. The patient also had orthostatic hypotension done yesterday that shows lying blood pressure 126/60, sitting 105/58 and standing 128/66. No evidence of orthostatic hypotension. We will discontinue telemetry. Tomasz Mckeon MD [facility] # [id number]
[2017-04-06] MEDS ORDERED: MethylPREDNISolone Depo 40 mg/ml Inj IM ONE (15:17)
[2017-04-06] MEDS ORDERED: Bupivacaine 0.5% Inj(30mL) IJ ONE (15:17)
--- NOTE | 2017-04-06 16:21 | CP.PCM.PN ---
Subjective - Date & Time of Evaluation Date of Evaluation: 04/06/17 Time of Evaluation: 14:00 - Subjective Subjective: c/o right shoulder pain, no chest pain, no SOB, had hypoglycemic episode this am , insulin held, pt awake and alert at present Objective - Vital Signs/Intake and Output Vital Signs (last 24 hours): Temp Pulse Resp BP Pulse Ox 99 F 82 20 133/59 L 100 04/06/17 12:00 04/06/17 12:00 04/06/17 12:00 04/06/17 12:00 04/06/17 06:00 Intake and Output: 04/06/17 04/06/17 06:59 18:59 Intake Total 1680 Output Total 1100 Balance 580 - Medications Medications: Current Medications Acetaminophen (Tylenol 325mg Tab) 650 mg PO Q6H PRN PRN Reason: Pain, Mild (1-3) Last Admin: 04/05/17 19:57 Dose: 650 mg Azithromycin (Zithromax) 500 mg PO DAILY [facility] PRN Reason: Protocol Last Admin: 04/06/17 09:56 Dose: 500 mg Clopidogrel Bisulfate (Plavix) 75 mg PO DAILY [facility] Last Admin: 04/06/17 09:56 Dose: 75 mg Gabapentin (Neurontin) 100 mg PO TID [facility] PRN Reason: Protocol Last Admin: 04/06/17 14:04 Dose: 100 mg Potassium Chloride 20 meq/ (Sodium Chloride) 1,010 mls @ 100 mls/hr IV .Q10H6M [facility] Last Admin: 04/06/17 07:13 Dose: 100 mls/hr Ibuprofen (Motrin Tab) 600 mg PO Q8 [facility] Last Admin: 04/06/17 14:04 Dose: 600 mg Insulin Detemir (Levemir) 40 unit SC HS [facility] Insulin Human Lispro (Humalog Low) 0 units SC ACHS [facility] PRN Reason: Protocol Last Admin: 04/06/17 11:53 Dose: 2 units Insulin Human Lispro (Humalog) 10 units SC AC [facility] Ipratropium [place] (Atrovent) 0.5 mg IH TIDRESP [facility] Last Admin: 04/06/17 14:08 Dose: 0.5 mg Losartan Potassium (Cozaar) 100 mg PO DAILY [facility] Last Admin: 04/06/17 09:56 Dose: 100 mg Pantoprazole Sodium (Protonix Ec Tab) 40 mg PO DAILY [facility] Last Admin: 04/06/17 09:56 Dose: 40 mg Topiramate (Topamax) 100 mg PO BID [facility] PRN Reason: Protocol Last Admin: 04/06/17 09:57 Dose: 100 mg Venlafaxine HCl (Effexor) 75 mg PO TID [facility] Last Admin: 04/06/17 14:04 Dose: 75 mg - Labs Labs: 04/05/17 07:00 PT 11.4 SECONDS (9.4-12.5) 04/03/17 12:20 INR 1.04 (0.93-1.08) 04/03/17 12:20 APTT 25.6 Seconds (25.1-36.5) 04/03/17 12:20 - Respiratory Exam Respiratory Exam: Clear to Ausculation Bilateral, NORMAL BREATHING PATTERN - Cardiovascular Exam Cardiovascular Exam: REGULAR RHYTHM - GI/Abdominal Exam GI & Abdominal Exam: Soft, Normal Bowel Sounds - Extremities Exam Additional comments: decreased ROM right shoulder secondary to pain, no weakness, no swelling or erythema Assessment and Plan (1) Hyperglycemia Status: Acute (2) Type I diabetes mellitus Status: Acute (3) Chest pain Status: Acute (4) COPD (chronic obstructive pulmonary disease) Status: Acute - Assessment and Plan (Free Text) Plan: continue endocrine follow-up for glycemic control, IV fluid, orthopedic consult
--- NOTE | 2017-04-06 20:22 | PN ---
ENDO FOLLOWUP NOTE LOCATION: Room 270. This is a 62-year-old female with recent uncontrolled type 2 insulin-requiring diabetes, now with supervening extremes of glycemic fluctuation from bedtime hypoglycemia to executive steward hyperglycemic accelerations and glucose levels from 400 to 500 as noted thereof. She apparently has a variable oral intake as per the nursing staff with the bedtime low glucose value as noted. She received D50 bolus injections, and they also held the bedtime basal insulin with expected hyperglycemic accelerations today as noted. So for now, we will actually modify the dose regimen to a slightly lower basal and bolus insulin drug combination with Levemir given as 40 units subcu at bedtime daily to start tonight. We will also lower the Humalog to 10 units subcu t.i.d. before meals to start at dinner time today as ordered. We discussed with the nursing staff regarding not withholding the basal insulin at bedtime to prevent executive steward hyperglycemic accelerations. We will hold off the discharge today and observe her glycemic fluctuations overnight and also to allow for optimal dose equilibration as noted. We will follow. Polly Carrillo MD
[2017-04-06] MEDS ORDERED: Insulin Detemir 100 units/ml Vial (Levemir) SC SCH (22:00)
--- NOTE | 2017-04-06 23:26 | CT ---
EXAM: CT Cervical Spine Without Intravenous Contrast CLINICAL HISTORY: 62 years old, female; Pain; Neck pain and radicular pain (radiculopathy); Cervical region; Additional info: Ridiculopathy TECHNIQUE: Axial computed tomography images of the cervical spine without intravenous contrast. All CT scans at this facility use one or more dose reduction techniques, viz.: automated exposure control; ma/kV adjustment per patient size (including targeted exams where dose is matched to indication; i.e. head); or iterative reconstruction technique. Coronal and sagittal reformatted images were created and reviewed. COMPARISON: No relevant prior studies available. FINDINGS: Vertebrae: No acute fracture. Straightening of cervical spine. Mild facet osteoarthrosis. Discs/spinal canal/neural foramina: Mild degenerative disc disease at C2-C3, C5-C6 levels. Mild to moderate degenerative disc disease at C4-C5, C7-T1 levels. Moderate degenerative disease at C3-C4 level. Fusion across C6-C7 level. Disc herniations at several levels, suboptimally evaluated. Mild central canal stenosis at C2-C3, C4-C5, C5-C6, C7-T1 levels. Moderate central canal stenosis at C3-C4 level. Neuroforaminal narrowing at C3-C4, C4-C5, C5-C6, C7-T1 levels. Soft tissues: Unremarkable. Lung apices: Unremarkable as visualized. IMPRESSION: 1. No fracture. 2. If symptoms persists, consider MRI for further evaluation. 3. Incidental/non-acute findings are described above.
--- NOTE | 2017-04-07 04:02 | CON ---
ORTHOPEDIC CONSULT DATE: 04/06/2017 TIME: 4:00 p.m. HISTORY OF PRESENT ILLNESS: The patient was seen for persistent right shoulder pain for about 4 weeks. X-ray shows mild findings of subacromial impingement with some subacromial spur and when questioning her, she has had cervical spine fusion over 4 years ago for radiculopathy and herniated disc and the symptoms were on the right side and she does describe pain radiating down her upper extremity to the fingers. She cannot really localize the numbess because she does have neuropathy also. So with this past history of cervical spine surgery, we will get cervical spine x-ray and a CAT scan and avoid injection of Depo-Medrol for now and see the results of the cervical spine x-ray and the results of physical therapy to the neck and shoulder. I will follow the patient with you for orthopedic reasons of the shoulder pain. FINAL DIAGNOSES: Cervical spine postsurgical procedure for possible fusion and bursitis of the right shoulder. Tony Machado DO MTDChris
[2017-04-07] MEDS: Ipratropium 0.02% Inhal Soln (0.5 mg/2.5 ml) UD IH SCH ×3 (07:17→19:37)
[2017-04-07] MEDS: Insulin Lispro (humaLOG) LOW Coverage SC SCH ×4 (08:08→22:22)
[2017-04-07] MEDS: Insulin Lispro 1 UNITS/0.01 ML SC SCH ×2 (08:09→11:53)
--- NOTE | 2017-04-07 08:24 | RAD ---
PROCEDURE: Cervical Spine Radiographs. HISTORY: Pain. COMPARISON: None. FINDINGS: BONES: Straightened curvature appreciate. There is no definite spondylolisthesis identified. These C7-T1 disc interspace is poorly characterized due to the obscuring by the shoulders. Advanced multilevel cervical spondylosis appreciated. Multilevel facet arthropathy is also advanced. C1-2 articulation appears intact as well the odontoid process. Prevertebral soft tissues appear diffusely unremarkable. Normal. normal. No prevertebral soft tissue swelling. OTHER FINDINGS: None. IMPRESSION: Advanced degenerative disease appreciated throughout cervical spondylosis or arthropathy. There straightening of the cervical curvature without spondylolisthesis. C7-T1 disc interspace is obscured by the shoulders. CT or MRI are available for follow-up if clinically warranted.
[2017-04-07] MEDS: Pantoprazole 40 mg EC Tab PO SCH (10:07)
--- NOTE | 2017-04-07 10:32 | CP.PCM.PN ---
Subjective - Date & Time of Evaluation Date of Evaluation: 04/07/17 Time of Evaluation: 09:00 - Subjective Subjective: c/o pain right shoulder, denies chest pain, no SOB, non-fasting blood glucose levels remain elevated Objective - Vital Signs/Intake and Output Vital Signs (last 24 hours): Temp Pulse Resp BP Pulse Ox 98.2 F 93 H 20 178/74 H 96 04/07/17 07:30 04/07/17 07:30 04/07/17 07:30 04/07/17 07:30 04/07/17 07:30 - Medications Medications: Current Medications Acetaminophen (Tylenol 325mg Tab) 650 mg PO Q6H PRN PRN Reason: Pain, Mild (1-3) Last Admin: 04/05/17 19:57 Dose: 650 mg Azithromycin (Zithromax) 500 mg PO DAILY [facility] PRN Reason: Protocol Last Admin: 04/07/17 10:08 Dose: 500 mg Clopidogrel Bisulfate (Plavix) 75 mg PO DAILY [facility] Last Admin: 04/07/17 10:08 Dose: 75 mg Gabapentin (Neurontin) 100 mg PO TID [facility] PRN Reason: Protocol Last Admin: 04/07/17 10:09 Dose: 100 mg Potassium Chloride 20 meq/ (Sodium Chloride) 1,010 mls @ 100 mls/hr IV .Q10H6M [facility] Last Admin: 04/06/17 07:13 Dose: 100 mls/hr Ibuprofen (Motrin Tab) 600 mg PO Q8 [facility] Last Admin: 04/06/17 21:34 Dose: 600 mg Insulin Detemir (Levemir) 40 unit SC HS [facility] Last Admin: 04/06/17 21:36 Dose: 40 unit Insulin Human Lispro (Humalog Low) 0 units SC ACHS [facility] PRN Reason: Protocol Last Admin: 04/07/17 08:08 Dose: 2 units Insulin Human Lispro (Humalog) 10 units SC AC [facility] Last Admin: 04/07/17 08:09 Dose: 10 units Ipratropium [place] (Atrovent) 0.5 mg IH TIDRESP [facility] Last Admin: 04/07/17 07:17 Dose: 0.5 mg Losartan Potassium (Cozaar) 100 mg PO DAILY [facility] Last Admin: 04/07/17 10:08 Dose: 100 mg Pantoprazole Sodium (Protonix Ec Tab) 40 mg PO DAILY [facility] Last Admin: 04/07/17 10:07 Dose: 40 mg Topiramate (Topamax) 100 mg PO BID [facility] PRN Reason: Protocol Last Admin: 04/07/17 10:08 Dose: 100 mg Venlafaxine HCl (Effexor) 75 mg PO TID [facility] Last Admin: 04/07/17 10:07 Dose: 75 mg - Labs Labs: PT 11.4 SECONDS (9.4-12.5) 04/03/17 12:20 INR 1.04 (0.93-1.08) 04/03/17 12:20 APTT 25.6 Seconds (25.1-36.5) 04/03/17 12:20 - Respiratory Exam Respiratory Exam: Clear to Ausculation Bilateral, NORMAL BREATHING PATTERN - Cardiovascular Exam Cardiovascular Exam: REGULAR RHYTHM - GI/Abdominal Exam GI & Abdominal Exam: Soft, Normal Bowel Sounds - Neurological Exam Neurological Exam: Alert, Awake - Skin Skin Exam: Dry, Warm Assessment and Plan (1) Hyperglycemia Status: Chronic (2) Type I diabetes mellitus Status: Chronic (3) Chest pain Status: Resolved (4) COPD (chronic obstructive pulmonary disease) Status: Chronic - Assessment and Plan (Free Text) Plan: continue endocrinology follow-up Dr. Carrillo, orthopedic follow-up Dr. Machado , physical therapy and social work for discharge planning
[2017-04-07 11:18] LABS: ALB/GLOB RATIO 1.2 (1.1-1.8); ALKALINE PHOSPHATASE 92 U/L (38-126); ALT/SGPT 16 U/L (7-56); AST/SGOT 61 U/L (14-36); BILIRUBIN,TOTAL 0.3 mg/dL (0.2-1.3); BLOOD UREA NITROGEN 11 mg/dL (7-21); CARBON DIOXIDE 26 mmol/L (21-33); CHLORIDE 105 mmol/L (98-107); GFR AFRICAN-AMERICAN > 60; POTASSIUM 4.2 mmol/L (3.6-5.0); SODIUM 140 mmol/L (132-148); TOTAL PROTEIN 6.6 g/dL (5.8-8.3)
[2017-04-07 11:24] LABS: GLUCOSE,RANDOM 345 mg/dL (70-110)
--- NOTE | 2017-04-07 14:07 | PN ---
DATE: 04/07/2017 TIME SEEN: 8 o'clock in the morning. LOCATION: A 62-year-old female in [facility], bed 1. The patient's results of x-rays came back of her cervical spine extensive osteoarthritis with fusion of the lower cervical spine substantiated by a CAT scan, which also showed foraminal stenosis and spinal canal stenosis. She is a good candidate for epidural. There is no need for injection of cortsone in to the rt shoulder,it would be better for the cervical spine epidural because that is the most promise of helping her symptoms of radiculopathy from that pinch nerve. So I will try to get anesthesia doctor that could give a good epidural for the cervical spine symptoms. After discharge, she should followup with the doctor who did her cervical spine fusion.anesthesia said that the plavex would have to be held for one week prior to the epidural injection. Tony Machado DO MTDD
--- NOTE | 2017-04-07 14:43 | PN ---
DATE: 04/07/2017 REASON FOR CONSULTATION AND FOLLOWUP: Chest pain, atypical musculoskeletal with tenderness, cervical radiculopathy, inability to raise right arm, and atypical chest pain. SUBJECTIVE: Still complaining of pain in the right shoulder, in the right side of the chest, inability to move or raise hand above the head. OBJECTIVE/PHYSICAL EXAMINATION: As follows: GENERAL: Not in apparent distress, but on movement the patient feels pain on right chest. VITAL SIGNS: Temperature is afebrile, heart rate is 93, blood pressure is 122/74. HEENT: PERRLA. Extraocular muscles are intact. NECK: Supple. No carotid bruit or thyromegaly. CHEST: Clear to auscultation. HEART: S1 and S2 regular. ABDOMEN: Soft. EXTREMITIES: Clubbing and cyanosis negative. Yesterday orthostatic was then found to be lying 134/64, sitting 134/68, /60. IMPRESSION: Atypical chest pain secondary to cervical radiculopathy, obesity increased body mass index of 32 kg/m2, noticed acute myocardial infarction, musculoskeletal pain, history of cerebrovascular accident, history of hypertension, history of bipolar disorder, and history of schizophrenia. RECOMMENDATIONS: Continue NSAID. The patient had echocardiography done on 08/18/2016 that showed normal sinus with ejection of 71%, RV systolic pressure is 28. Continue evaluation of cervical radiculopathy. She is being followed by Dr. Machado, continue rehab symptom of right shoulder and right chest pain, improved cervical radiculopathy, consider stress test as an outpatient. When the patient is able to lift up an arm above the head, otherwise there would be suboptimal study. For now medical treatment, we will follow with you, but risk of stratification such as stress test as an outpatient once the patient's pain in the shoulder improved. Tomasz Mckeon MD
[2017-04-07] MEDS ORDERED: Insulin Lispro 1 UNITS/0.01 ML SC SCH (16:30)
--- NOTE | 2017-04-07 16:57 | PN ---
ENDO FOLLOWUP NOTE LOCATION: In room 566. SUBJECTIVE: This is a 62-year-old female with recent uncontrolled type 2 insulin-requiring diabetes, now being followed closely for metabolic management. She continues to have marked hyperglycemic accelerations today as noted with glucose levels ranging from 333 to 361 and 385 mg/dL. Her latest chemistry showed a BUN of 11, sodium 140, potassium 4.2, chloride 105, CO2 of 26, glucose 345 and creatinine 0.8. So at this time, we will modify once again her basal and bolus insulin regimen and increase the Humalog to 16 units subcu t.i.d. before meals to start at dinner time today as ordered. We will also increase the basal insulin with Levemir given as 50 units subcu at bedtime daily to start tonight. We will continue the low-dose correction scale using Humalog insulin as given to avoid hypoglycemia and detailed orders have been given. We will titrate incrementally as indicated to optimize metabolic control. We will follow with you. Polly Carrillo MD
[2017-04-07] MEDS ORDERED: Insulin Detemir 100 units/ml Vial (Levemir) SC SCH ×2 (22:00)
[2017-04-08] MEDS: Ipratropium 0.02% Inhal Soln (0.5 mg/2.5 ml) UD IH SCH ×3 (07:26→19:44)
[2017-04-08] MEDS: Insulin Lispro (humaLOG) LOW Coverage SC SCH ×3 (07:30→22:16)
[2017-04-08] MEDS ORDERED: Insulin Lispro 1 UNITS/0.01 ML SC SCH (07:30)
[2017-04-08] MEDS: Pantoprazole 40 mg EC Tab PO SCH (10:23)
[2017-04-08] MEDS: Insulin Lispro 1 UNITS/0.01 ML SC SCH ×2 (11:30→17:03)
--- NOTE | 2017-04-08 12:19 | PN ---
DATE: 04/08/2017 REASON FOR CONSULTATION AND FOLLOWUP: Chest pain, atypical musculoskeletal, cervical radiculopathy, and right shoulder pain. SUBJECTIVE: Complains of chest pain, but significantly decreased and right shoulder pain also significantly decreased, but still feels pain on elevating right arm above the head. OBJECTIVE: GENERAL: Not in apparent distress, lying flat in the bed. VITAL SIGNS: As follows: Temperature afebrile, heart rate 92, and blood pressure 130/75. HEENT: PERRLA intact. NECK: Supple. No carotid bruits or thyromegaly. CHEST: Clear to auscultation. HEART: S1 and S2 regular. ABDOMEN: Soft. EXTREMITIES: Clubbing and cyanosis negative. LABORATORY DATA: Blood workup as follows: WBC 6, hemoglobin 12.2, hematocrit 35.4, and platelet count 154. Chemistry shows sodium 140, potassium 4.2, chloride 105, carbon dioxide 26, anion gap 13, BUN 11, and creatinine 0.8. IMPRESSION: Diabetes, hypertension, hyperlipidemia, obesity, atypical chest pain, musculoskeletal, history of cervical radiculopathy. The patient's echocardiography done on 08/18/2016 showed normal left ventricle size, ejection fraction of 71%, right ventricular systolic pressure of 28. RECOMMENDATIONS: Continue rehab. Consider stress test as an outpatient, if the patient is able to lift up both hands and arm above the head, so the patient and picture can be taken during the stress test. For now, the patient has some difficulty raising hand and cannot lift arm for 10 to 15 minutes, so we will hold the stress test for now, but because of multiple risk factors for coronary artery disease, consider stress test as an outpatient. Thank you Dr. Padilla for providing me the opportunity in taking of care of Jessa Morales. Tomasz Mckeon MD cc: Socrates Padilla JD/
--- NOTE | 2017-04-08 17:58 | CP.PCM.PN ---
Subjective - Date & Time of Evaluation Date of Evaluation: 04/08/17 Time of Evaluation: 09:00 - Subjective Subjective: somewhat less pain R shoulder, no chest pain, denies SOB Objective - Vital Signs/Intake and Output Vital Signs (last 24 hours): Temp Pulse Resp BP Pulse Ox 97.5 F L 85 20 115/66 95 04/08/17 17:16 04/08/17 17:16 04/08/17 17:16 04/08/17 17:16 04/08/17 17:16 Intake and Output: 04/08/17 04/08/17 06:59 18:59 Intake Total 600 480 Output Total 200 Balance 400 480 - Medications Medications: Current Medications Acetaminophen (Tylenol 325mg Tab) 650 mg PO Q6H PRN PRN Reason: Pain, Mild (1-3) Last Admin: 04/05/17 19:57 Dose: 650 mg Azithromycin (Zithromax) 500 mg PO DAILY [facility] PRN Reason: Protocol Last Admin: 04/08/17 10:23 Dose: 500 mg Clopidogrel Bisulfate (Plavix) 75 mg PO DAILY [facility] Last Admin: 04/08/17 10:23 Dose: 75 mg Gabapentin (Neurontin) 100 mg PO TID [facility] PRN Reason: Protocol Last Admin: 04/08/17 17:06 Dose: 100 mg Ibuprofen (Motrin Tab) 600 mg PO Q8 [facility] Last Admin: 04/08/17 17:05 Dose: 600 mg Insulin Detemir (Levemir) 36 unit SC HS [facility] Insulin Human Lispro (Humalog Low) 0 units SC ACHS [facility] PRN Reason: Protocol Last Admin: 04/08/17 16:47 Dose: Not Given Insulin Human Lispro (Humalog) 14 units SC AC [facility] Last Admin: 04/08/17 17:03 Dose: 14 units Ipratropium Brandt (Atrovent) 0.5 mg IH TIDRESP [facility] Last Admin: 04/08/17 13:25 Dose: 0.5 mg Losartan Potassium (Cozaar) 100 mg PO DAILY [facility] Last Admin: 04/08/17 10:27 Dose: 100 mg Pantoprazole Sodium (Protonix Ec Tab) 40 mg PO DAILY [facility] Last Admin: 04/08/17 10:23 Dose: 40 mg Topiramate (Topamax) 100 mg PO BID [facility] PRN Reason: Protocol Last Admin: 04/08/17 10:23 Dose: 100 mg Venlafaxine HCl (Effexor) 75 mg PO TID [facility] Last Admin: 04/08/17 17:06 Dose: 75 mg - Labs Labs: 04/07/17 10:00 PT 11.4 SECONDS (9.4-12.5) 04/03/17 12:20 INR 1.04 (0.93-1.08) 04/03/17 12:20 APTT 25.6 Seconds (25.1-36.5) 04/03/17 12:20 - Respiratory Exam Respiratory Exam: Accessory Muscle Use, NORMAL BREATHING PATTERN - Cardiovascular Exam Cardiovascular Exam: REGULAR RHYTHM - GI/Abdominal Exam GI & Abdominal Exam: Soft, Normal Bowel Sounds - Neurological Exam Neurological Exam: Alert, Awake - Skin Skin Exam: Dry, Warm Assessment and Plan (1) Hyperglycemia Status: Chronic (2) Type I diabetes mellitus Status: Chronic (3) Chest pain Status: Resolved (4) COPD (chronic obstructive pulmonary disease) Status: Chronic - Assessment and Plan (Free Text) Plan: continue follow-up endocrine for glycemic control, for possible epidural injection C-spine in am, continue physical therapy, social work for discharge planning
--- NOTE | 2017-04-08 19:49 | PN ---
DATE: ENDOCRINOLOGY FOLLOWUP NOTE LOCATION: In room 566. This is a 62-year-old female with recent uncontrolled type 2 insulin-requiring diabetes, now being followed closely for metabolic management. Her glycemic levels continue to have marked glycemic accelerations as noted thereof. Her glucose values today have ranged form 243 to 272 and 353 mg/dL. It was 240 at bedtime last night as noted. The latest chemistry showed a BUN of 11, sodium 140, potassium 4.2, chloride 105, CO2 26, glucose 345 and creatinine 0.8. So, at this time, we will continue the modified basal and bolus insulin regimen as ordered with Humalog to be given as 14 units subcutaneous t.i.d. before meals to start at dinnertime today as ordered. We will continue the higher dosing of Levemir given as 36 units subcutaneous at bedtime daily to start tonight. We will titrate incrementally as indicated to optimize metabolic control. We will also continue the low-dose correction scale using Humalog insulin as given. We will follow and advise accordingly. Polly Carrillo MD
[2017-04-08] MEDS ORDERED: Insulin Detemir 100 units/ml Vial (Levemir) SC SCH (22:00)
[2017-04-09] MEDS: Ipratropium 0.02% Inhal Soln (0.5 mg/2.5 ml) UD IH SCH ×2 (07:18→13:35)
[2017-04-09 08:35] VITALS: BP 116/70; PULSE 78; RESP 16; TEMP 97.8; O2SAT 97
[2017-04-09] MEDS: Insulin Lispro (humaLOG) LOW Coverage SC SCH (08:40)
[2017-04-09] MEDS: Insulin Lispro 1 UNITS/0.01 ML SC SCH (08:52)
[2017-04-09] MEDS: Pantoprazole 40 mg EC Tab PO SCH (09:55)
--- NOTE | 2017-04-09 10:25 | PN ---
FOLLOWUP REPORT DATE: 04/09/2017 A 62-year-old female with right shoulder bursitis for right shoulder pain. She said her right shoulder bursitis pain is much better and really does not want a cortisone shot because she knows her blood sugar will go unusually high, so we will treat her conservatively with physical therapy, and in time the bursitis will start feeling better when it is not irritated by doing too much physical exertion. Tony Machado DO
--- NOTE | 2017-04-09 11:26 | PN ---
DATE: 04/09/2017 REASON FOR CONSULTATION AND FOLLOWUP: Chest pain atypical, musculoskeletal; cervical radiculopathy; and right shoulder pain. SUBJECTIVE: Complain of pain in the right shoulder, difficulty moving right arm. PHYSICAL EXAMINATION: GENERAL: Lying flat in the bed, not in apparent distress, but movement of right arm gets pain. VITAL SIGNS: As follows: Temperature afebrile, heart rate 78, and blood pressure 116/70. HEENT: PERRLA intact. NECK: Supple. No carotid bruit or thyromegaly. CHEST: Clear to auscultation. HEART: S1 and S2 regular. ABDOMEN: Soft. EXTREMITIES: Clubbing and cyanosis negative. LABORATORY DATA: Blood workup as follows: WBC 6, hemoglobin 12, hematocrit 35.4, and platelet count 154. Chemistry shows sodium 140, potassium 4.2, chloride 105, carbon dioxide 26, anion gap of 30, BUN 11, and creatinine 0.8. IMPRESSION: Diabetes, hypertension, hyperlipidemia, obesity, atypical chest pain musculoskeletal, and history of cervical radiculopathy. Last echo the patient had on 08/18/2016 shows normal LV size with ejection fraction of 71% and right ventricular systolic pressure 28. RECOMMENDATIONS: Continue rehab. When the pain abates or gets better, consider stress test as an outpatient. We will follow with you. Thank you Dr. Padilla for providing me the opportunity in taking care of patient, Andrew Germain. Tomasz Mckeon MD
[2017-04-09] MEDS ORDERED: Insulin Detemir 100 units/ml Vial (Levemir) SC SCH (12:51)
--- NOTE | 2017-04-09 13:44 | PN ---
DATE: ENDOCRINOLOGY FOLLOWUP NOTE LOCATION: In room 566. SUBJECTIVE: This is a 62-year-old female with recent uncontrolled type 2 insulin-requiring diabetes, now being followed closely for metabolic management. Her glycemic levels are fluctuating, but much improved at this time and the latest glucose levels have ranged from 205 to 207 mg/dL. It was 395 at bedtime last night which was quite elevated as noted. OBJECTIVE: The latest chemistry showed a BUN of 11, sodium of 140, potassium of 4.2, chloride of 105, CO2 of 26, glucose of 345 and creatinine of 0.8. IMPRESSION AND PLAN: So at this time, we will modify once again her basal and bolus insulin regimen and increase the Levemir to 40 units subcutaneously at bedtime daily to start tonight. We will continue the Humalog given as 14 units subcutaneously t.i.d. before meals as ordered. We will titrate incremental as indicated to optimize metabolic control. We will also continue the low-dose correction scale using Humalog insulin as given. We will follow and advise accordingly. Polly Carrillo MD
--- NOTE | 2017-04-10 04:32 | DS ---
HOSPITAL COURSE: The patient is a 62-year-old female who admitted through the emergency department on 04/03/2017 with chest pain. Serial EKG and cardiac enzymes were negative for acute coronary syndrome. The patient was seen in consultation by Dr. Eason and Dr. Mckeon. The patient's hospital course was complicated by hyperglycemia. The patient was seen in consultation by Endocrinology, Dr. Polly Carrillo with adjustment of insulin regimen. The hospital course is uncomplicated and she is medically stable for discharge today. PHYSICAL EXAMINATION: VITAL SIGNS: Blood pressure 116/70, temperature 97.8, pulse 78, respiratory rate 16. LUNGS: Clear. HEART: Regular rate and rhythm. ABDOMEN: Soft and nontender. Bowel sounds are normoactive. EXTREMITIES: Without cyanosis, clubbing, or edema. NEUROLOGIC: The patient is awake and oriented x3 without focal, sensory, and motor deficits. SKIN: Warm and dry. IMPRESSION: 1. Chest pain, atypical. 2. Type 1 diabetes mellitus, uncontrolled. 3. Degenerative joint disease, chronic pain. 4. Chronic obstructive pulmonary disease. 5. Hypertension, hypertensive cardiovascular disease, history of congestive heart failure. 6. Chronic schizophrenia and bipolar disorder. PLAN: The patient was discharged to home today in stable condition on the following medications: Topamax , pantoprazole 40 mg daily, Dulera 100/5 one inhalation twice daily, Humalog 14 units a.c., Levemir 30 units at bedtime, Cozaar 15 mg daily, Plavix 75 mg daily, Neurontin 100 mg 3 times daily, carvedilol 25 mg twice daily, Zyrtec 10 mg daily, Lipitor 20 mg daily, and venlafaxine 75 mg 3 times daily. The patient will be maintained on consistent carbohydrate diet. Activities as libitum. She will be seen as an outpatient in the office within next 1 to 2 weeks. CLAIR Hay MD
== END 2017-04-09 15:08 | disposition home or self-care (01) | DRG 552 ==
LOC: ED 12:25 → ERH 17:36 → 2RSO 19:13 → OBSVTOIN 04-06 13:35 → 5RNO 04-06 17:18
PROVIDERS: ADMIT Internal Medicine; ATTEND Internal Medicine
PROC: 3E0F7GC Introduction of Other Therapeutic Substance into Respiratory Tract, Via Natural or Artificial Opening (ICD-10-PCS; principal; 2017-04-04)
DX: M47.22 Other spondylosis with radiculopathy, cervical region (principal); I11.0 Hypertensive heart disease with heart failure; I50.9 Heart failure, unspecified; E10.42 Type 1 diabetes mellitus with diabetic polyneuropathy; E10.649 Type 1 diabetes mellitus with hypoglycemia without coma; R07.89 Other chest pain; E10.65 Type 1 diabetes mellitus with hyperglycemia; G40.409 Other generalized epilepsy and epileptic syndromes, not intractable, without status epilepticus; J44.9 Chronic obstructive pulmonary disease, unspecified; F31.9 Bipolar disorder, unspecified; E10.319 Type 1 diabetes mellitus with unspecified diabetic retinopathy without macular edema; I67.9 Cerebrovascular disease, unspecified; E78.5 Hyperlipidemia, unspecified; M75.51 Bursitis of right shoulder; G89.29 Other chronic pain; F20.9 Schizophrenia, unspecified; I73.9 Peripheral vascular disease, unspecified; H54.8 Legal blindness, as defined in USA; Z86.73 Personal history of transient ischemic attack (TIA), and cerebral infarction without residual deficits; E66.9 Obesity, unspecified; Z68.32 Body mass index [BMI] 32.0-32.9, adult; Z90.710 Acquired absence of both cervix and uterus; Z90.49 Acquired absence of other specified parts of digestive tract; Z79.4 Long term (current) use of insulin; Z98.1 Arthrodesis status; Z88.6 Allergy status to analgesic agent; Z83.3 Family history of diabetes mellitus; Z82.49 Family history of ischemic heart disease and other diseases of the circulatory system

== ENCOUNTER 2017-06-30 11:14 | Observation (INO) | payer MEDICARE, OTHER ==
[2017-06-30] MEDS ORDERED: Dextrose 50% SYRINGE Inj (50 ml) ONE (11:20)
--- NOTE | 2017-06-30 11:38 | ED PDOC ---
Arrival/HPI - General Chief Complaint: Altered Mental Status Time Seen by Provider: 06/30/17 11:27 Historian: Patient, Family (Sister) - History of Present Illness Narrative History of Present Illness (Text): 06/30/17 11:38 A 62 year old female, whose past medical history includes insulin dependent diabetes, presents to the emergency department accompanied by sister complaining of low blood sugar. Sister reports patient took her insulin this morning but did not have breakfast. Patient arrived to the emergency room with a finger stick less than 30, she received an amp of D50 prior to initial exam. Sister reports patient has experienced similar episodes in the past. Patient is alert and oriented, she denies any fever, chills, nausea, vomiting, abdominal pain, chest pain, shortness of breath or any other complaints. PMD: Dr. Padilla Time/Duration: Prior to Arrival Past Medical History - Provider Review Nursing Documentation Reviewed: Yes - Infectious Disease Hx of Infectious Diseases: None - Tetanus Immunization Tetanus Immunization: Unknown - Cardiac Hx Cardiac Disorders: Yes Hx Hypertension: Yes - Pulmonary Hx Chronic Obstructive Pulmonary Disease (COPD): Yes - Neurological HX Cerebrovascular Accident: Yes (left sided weakness, 1979) - HEENT Hx HEENT Disorder: Yes (eyeglasses) Hx Blind: Yes (patient reports she is legally blind) - Renal Hx Renal Failure: No - Endocrine/Metabolic Hx Diabetes Mellitus Type 1: Yes (dx at 11 yrs old) - Hematological/Oncological Hx Blood Disorders: No Hx Cancer: No - Integumentary Other/Comment: multiple skin discolorations rle - Musculoskeletal/Rheumatological Hx Musculoskeletal Disorders: (left side weakness) Hx Back Pain: Yes Hx Falls: No Hx Unsteady Gait: Yes (walker) - Gastrointestinal Hx Gastrointestinal Disorders: No - Genitourinary/Gynecological Hx Genitourinary Disorders: No - Psychiatric Hx Psychophysiologic Disorder: Yes Hx Depression: Yes Hx Substance Use: No Other/Comment: no hx of bipolar or schizophrenia as per pt - Surgical History Hx Cholecystectomy: Yes Hx Hysterectomy: Yes Hx Orthopedic Surgery: Yes (NECK, L LEG,BACK) Other/Comment: cervical spine sx in pt uncertain what type of sx she had done, lower back sx insertion of rods - Anesthesia Hx Anesthesia: Yes Hx Anesthesia Reactions: No Hx Malignant Hyperthermia: No Family/Social History - Physician Review Nursing Documentation Reviewed: Yes Family/Social History: No Known Family HX Smoking Status: Never Smoked Hx Alcohol Use: No Hx Substance Use: No Allergies/Home Meds Allergies/Adverse Reactions: Allergies aspirin Allergy (Verified 06/30/17 21:34) ANAPHYLAXIS diphenhydramine HCl [From Benadryl] Allergy (Verified 06/30/17 21:34) ANAPHYLAXIS trifluoperazine Allergy (Verified 06/30/17 21:34) ANAPHYLAXIS Home Medications: Home Meds Medication Instructions Recorded Confirmed Cetirizine HCl [Zyrtec] 10 mg PO DAILY 09/26/16 06/30/17 Mometasone/Formoterol [Dulera 100 2 delmar IH BID 09/26/16 06/30/17 Mcg/5 Mcg Inhaler] Review of Systems - Physician Review All systems were reviewed & negative as marked: Yes - Review of Systems Constitutional: Other (Low blood sugar). absent: Fevers, Night Sweats Respiratory: absent: SOB Cardiovascular: absent: Chest Pain Gastrointestinal: absent: Abdominal Pain, Nausea, Vomiting Physical Exam - Physical Exam Narrative Physical Exam (Text): Head: Atraumatic. Normocephalic. Eyes: PERRL. EOMI. Conjunctivae are not pale. ENT: Mucous membranes are moist and intact. Oropharynx is clear and symmetric. Neck: Supple. Full ROM. No JVD. No lymphadenopathy. Cardiovascular: Regular rate. Regular rhythm. No murmurs, rubs, or gallops. Distal pulses are 2+ and symmetric. Pulmonary/Chest: No evidence of respiratory distress. Clear to auscultation bilaterally. No wheezing, rales or rhonchi. Abdominal: Soft and non-distended. There is no tenderness. No rebound, guarding, or rigidity. No organomegaly. Good bowel sounds. Back: No CVA tenderness. Extremities: No edema. No cyanosis. No clubbing. Full range of motion in all extremities. No calf tenderness. Skin: Skin is warm and dry. No petechiae. No purpura. Neurological: Alert, awake, and oriented to person, place, time, and situation. Normal speech. Psychiatric: Good eye contact. Normal interaction, affect, and behavior. Vital Signs Pulse Resp BP Pulse Ox 06/30/17 16:51 80 18 150/79 98 06/30/17 14:32 72 18 140/71 98 06/30/17 12:05 76 16 142/71 100 Appearance: Positive for: Well-Appearing, Non-Toxic, Comfortable Pain Distress: None Mental Status: Positive for: Alert and Oriented X 3 Medical Decision Making ED Course and Treatment: 06/30/17 11:38 Impression: A 62 year old female with low blood sugar. Differential Diagnosis included but are not limited to: Hypoglycemia Plan: -- EKG -- Labs -- Dextrose -- Reassess and disposition Progress Notes: Patient's history supplemented by family member. Patient reportedly took insulin but did not eat this AM. She reportedly has been well recently with no recent fever, cough, chest pain or shortness of breath. Family states that they saw PMD earlier this am and "she was fine" but as patient was driving with family to see ad operations associate, she became weak and "sleepy" as per family, she states similar to past episodes of hypoglycemia. On arrival to Emergency department her blood sugar is less than 30. D50 given with immediate improvement in mental status. She was observed in Emergency department and found to have improved blood sugar , although felt dizzy again and blood sugar 60. She has eaten in Emergency department with improvement in blood sugar, but complains of dizziness. On exam, no chest pain, no focal weakness or slurred speech or sensory deficits. Will admit for monitoring of blood sugars given labile nature and persistent symptoms, exclude other etiologies of dizziness if persistent dizziness. No headache, no chest pain. Patient denies chest pain with serial exams. No dyspnea. - Lab Interpretations Lab Results: 06/30/17 11:50 06/30/17 11:50 Lab Results 06/30/17 14:25: POC Glucose (mg/dL) 122 H 06/30/17 13:24: POC Glucose (mg/dL) 60 L 06/30/17 11:50: Sodium 140, Potassium 3.6, Chloride 108 H, Carbon Dioxide 23, Anion Gap 13, BUN 17, Creatinine 1.0, Est GFR ( Amer) > 60, Est GFR (Non- Af Amer) 56, Random Glucose 213 H, Calcium 8.8, Total Bilirubin 0.4, AST 25, ALT 23, Alkaline Phosphatase 89, Total Protein 7.4, Albumin 3.9, Globulin 3.5, Albumin/Globulin Ratio 1.1 06/30/17 11:50: WBC 5.6, RBC 3.77, Hgb 11.3 L, Hct 33.5 L, MCV 88.9 D, MCH 30.0 , MCHC 33.7, RDW 13.3, Plt Count 184, MPV 10.1, Gran % 58.7, Lymph % (Auto) 31.1 , [place] % (Auto) 5.9, Eos % (Auto) 3.6, Baso % (Auto) 0.7, Gran # 3.26, Lymph # 1.7, [place] # 0.3, Eos # 0.2, Baso # 0.04 06/30/17 11:31: POC Glucose (mg/dL) 172 H I have reviewed the lab results: Yes - RAD Interpretation Integrated Program Teacher: Radiologist - EKG Interpretation EKG Interpretation (Text): EKG at 12:07 normal sinus rhythm rate of 74 Interpreted by ED Physician: Yes Type: 12 lead EKG - Medication Orders Current Medication Orders: Atorvastatin Calcium (Lipitor) 20 mg PO DIN [facility] Clopidogrel Bisulfate (Plavix) 75 mg PO DAILY [facility] Last Admin: 07/01/17 10:34 Dose: 75 mg Insulin Detemir (Levemir) 20 unit SC [facility] Insulin Human Lispro (Humalog Low) 0 units SC ACHS [facility] PRN Reason: Protocol Last Admin: 07/01/17 12:25 Dose: 2 units MAR Blood Glucose Document 07/01/17 12:25 SML (Rec: 07/01/17 12:26 SML [id number]) Blood Glucose Finger Stick Blood Glucose (70-120) 385 Subcutaneous Administrations Document 07/01/17 12:25 SML (Rec: 07/01/17 12:26 SML [id number]) Injection Site MAR Injection Site Right Arm Charges for Administration # of Subcutaneous Administrations 1 Insulin Human Lispro (Humalog) 8 units SC AC [facility] Last Admin: 07/01/17 12:25 Dose: 8 units MAR Blood Glucose Document 07/01/17 12:25 SML (Rec: 07/01/17 12:25 SML [id number]) Blood Glucose Finger Stick Blood Glucose (70-120) 385 Subcutaneous Administrations Document 07/01/17 12:25 SML (Rec: 07/01/17 12:25 SML [id number]) Injection Site MAR Injection Site Right Arm Charges for Administration # of Subcutaneous Administrations 1 Losartan Potassium (Cozaar) 50 mg PO DAILY [facility] Last Admin: 07/01/17 10:34 Dose: 50 mg MAR Pulse and Blood Pressure Document 07/01/17 10:34 SML (Rec: 07/01/17 10:35 SML [id number] Pulse Pulse Rate (60-90) 84 Blood Pressure Blood Pressure (100/60-150/90) 114/65 Meclizine HCl (Antivert) 25 mg PO Q6H PRN PRN Reason: Dizziness Last Admin: 07/01/17 10:42 Dose: 25 mg Pantoprazole Sodium (Protonix Ec Tab) 40 mg PO 0600 [facility] Last Admin: 07/01/17 06:01 Dose: 40 mg Topiramate (Topamax) 100 mg PO BID [facility] PRN Reason: Protocol Last Admin: 07/01/17 12:24 Dose: 100 mg Behavioural Document 07/01/17 12:24 SML (Rec: 07/01/17 12:25 SML [id number] Maintenance Maintenance Dose No Nonmedicinal Nonmedicinal Interventions Redirect Therapeutic Communication Behavior Behavior for Medication: Anxiety Venlafaxine HCl (Effexor Xr) 75 mg PO BID [facility] Discontinued Medications Dextrose/Sodium Chloride (Dextrose 5%/0.45% Ns 1000 Ml) 1,000 mls @ 100 mls/hr IV .Q10H [facility] Last Admin: 06/30/17 12:00 Dose: 100 mls/hr eMAR Start Stop Document 06/30/17 12:00 SF (Rec: 06/30/17 16:50 SF [id number]) Intravenous Solution Start Date 06/30/17 Start Time 12:00 Insulin Human Lispro (Humalog) 10 units SC [facility] Stop: 06/30/17 22:27 Last Admin: 06/30/17 22:47 Dose: 10 units MAR Blood Glucose Document 06/30/17 22:47 SG (Rec: 06/30/17 22:48 SG [id number]) Blood Glucose Finger Stick Blood Glucose (70-120) 401 Subcutaneous Administrations Document 06/30/17 22:47 SG (Rec: 06/30/17 22:48 SG [id number]) Charges for Administration # of Subcutaneous Administrations 1 Pneumococcal Polyvalent Vaccine (Pneumovax 23 Vaccine) 0.5 ml IM .ONCE ONE Stop: 06/30/17 23:27 - Scribe Statement The provider has reviewed the documentation as recorded by the Yrnibe Elizabeth Beavers Provider Scribe Attestation: All medical record entries made by the Scribe were at my direction and personally dictated by me. I have reviewed the chart and agree that the record accurately reflects my personal performance of the history, physical exam, medical decision making, and the department course for this patient. I have also personally directed, reviewed, and agree with the discharge instructions and disposition. Disposition/Present on Arrival - Present on Arrival Any Indicators Present on Arrival: Yes History of DVT/PE: No History of Uncontrolled Diabetes: Yes Urinary Catheter: No History of Decub. Ulcer: No History Surgical Site Infection Following: None - Disposition Have Diagnosis and Disposition been Completed?: Yes Diagnosis: Dizziness, Hypoglycemia Disposition: HOSPITALIZED Disposition Time: 14:30 Patient Plan: Admission, Observation Patient Problems: Current Active Problems Problem Status Onset Dizziness Acute Hypoglycemia Acute Condition: FAIR
[2017-06-30] MEDS ORDERED: Dextrose 5%/0.45% NS 1,000 ML IV SCH (11:45)
[2017-06-30 11:58] LABS: BASO # 0.04 K/mm3 (0.0-2.0); BASO % 0.7 % (0.0-3.0); EOS # 0.2 (0.0-0.7); EOS % 3.6 % (1.5-5.0); GRAN # 3.26 (1.4-6.5); GRAN % 58.7 % (50.0-68.0); HEMOGLOBIN 11.3 g/dL (12.0-16.0); LYMPH # 1.7 (1.2-3.4); LYMPH % 31.1 % (22.0-35.0); MEAN CELL VOLUME 88.9 fl (80.0-105.0); MEAN CORPUSCULAR HGB CONC 33.7 g/dl (31.0-37.0); MEAN PLATELET VOLUME 10.1 fl (7.0-11.0); MONO # 0.3 (0.1-0.6); MONO % 5.9 % (1.0-6.0); RBC 3.77 10^6/uL (3.5-6.1); RED CELL DISTRIBUTION WIDTH 13.3 % (11.5-14.5); WHITE BLOOD COUNT 5.6 10^3/ul (4.5-11.0)
[2017-06-30 12:09] LABS: ALB/GLOB RATIO 1.1 (1.1-1.8); ALBUMIN 3.9 g/dL (3.0-4.8); ALT/SGPT 23 U/L (7-56); AST/SGOT 25 U/L (14-36); BLOOD UREA NITROGEN 17 mg/dL (7-21); CALCIUM 8.8 mg/dL (8.4-10.5); GFR AFRICAN-AMERICAN > 60; GFR NON-AFRICAN AMERICAN 56
--- NOTE | 2017-06-30 14:53 | CARD ---
APPROVED REPORT EKG Measurement Heart [id number] <Conclusion> Normal sinus rhythm Small Q in lll Normal ECG
--- NOTE | 2017-06-30 17:25 | RAD ---
HISTORY: Weakness. Portable study 17:16. COMPARISON: 04/03/2017. FINDINGS: LUNGS: No active pulmonary disease. PLEURA: No significant pleural effusion identified, no pneumothorax apparent. CARDIOVASCULAR: No radiographic findings to suggest acute or significant cardiovascular disease. OSSEOUS STRUCTURES: No significant abnormalities. VISUALIZED UPPER ABDOMEN: Normal. OTHER FINDINGS: None. IMPRESSION: No active disease. No significant interval change compared to the prior examination(s).
--- NOTE | 2017-06-30 21:25 | CP.PCM.PN ---
Subjective - Date & Time of Evaluation Date of Evaluation: 06/30/17 Time of Evaluation: 21:00 - Subjective Subjective: Patient seen stat for her c/o dizziness and occasional pain in her R arm.States she has had these symptoms all day long.denies pain at this time. She denies any c/o sore throat, ear pain or ear discharge,chest pain,cough ,SOB, nausea vomiting,abdominal pain or any other symptoms. Pt was admitted for episode of hypoglycemia.reportedly she took her Insulin but did not have her breakfast. VS are stable.O2sat is 97%on Room Air,Accucheck is 365 PMH:COPD,Insulin dependant DM. Objective - Vital Signs/Intake and Output Vital Signs (last 24 hours): Temp Pulse Resp BP Pulse Ox 80 18 150/79 98 06/30/17 16:51 06/30/17 16:51 06/30/17 16:51 06/30/17 16:51 - Medications Medications: Current Medications Dextrose/Sodium Chloride (Dextrose 5%/0.45% Ns 1000 Ml) 1,000 mls @ 100 mls/hr IV .Q10H LELIA Last Admin: 06/30/17 12:00 Dose: 100 mls/hr - Constitutional Appears: No Acute Distress - Head Exam Head Exam: ATRAUMATIC, NORMAL INSPECTION, NORMOCEPHALIC - Eye Exam Eye Exam: Normal appearance - ENT Exam ENT Exam: Mucous Membranes Moist - Neck Exam Neck Exam: Normal Inspection - Respiratory Exam Respiratory Exam: Clear to Ausculation Bilateral, NORMAL BREATHING PATTERN. absent: Respiratory Distress - Cardiovascular Exam Cardiovascular Exam: REGULAR RHYTHM, +S1, +S2 - GI/Abdominal Exam GI & Abdominal Exam: Soft, Normal Bowel Sounds. absent: Tenderness - Extremities Exam Extremities Exam: Normal Inspection - Neurological Exam Neurological Exam: Alert, Awake, Oriented x3 - Psychiatric Exam Psychiatric exam: Normal Affect - Skin Skin Exam: Dry, Normal Color, Warm Assessment and Plan - Assessment and Plan (Free Text) Assessment: Dizziness Hyperglycemia Plan: Ekg was done stat.It shows NSR,Q wave in lead 111. Repeat accucheck was 401.Humalog 10 units sc ordered for now. Troponin ordered stat,then Q 8h x2.
--- NOTE | 2017-06-30 22:08 | CP.PCM.PN ---
Subjective - Date & Time of Evaluation Date of Evaluation: 06/30/17 Time of Evaluation: 21:10 - Subjective Subjective: Pt seen at the request of his RN for observation of audible rales and refusal of nebulizer treatment ordered for him. Pt was admitted for CHF ,was not given Lasix today. VS BP 117/73 HR 85 RR 20 O2 sat 96% on4L/min T 98.5 Accucheck 116 PMH: HTN,Dysphagia,DM type 2.Bipolar Disorder.Anxiety Objective - Vital Signs/Intake and Output Vital Signs (last 24 hours): Temp Pulse Resp BP Pulse Ox 80 18 150/79 98 06/30/17 16:51 06/30/17 16:51 06/30/17 16:51 06/30/17 16:51 - Medications Medications: Current Medications Atorvastatin Calcium (Lipitor) 20 mg PO DIN LELIA Clopidogrel Bisulfate (Plavix) 75 mg PO DAILY [facility] Losartan Potassium (Cozaar) 50 mg PO DAILY [facility] Pantoprazole Sodium (Protonix Ec Tab) 40 mg PO 0600 LELIA - Constitutional Appears: Non-toxic, Chronically Ill - Head Exam Head Exam: ATRAUMATIC, NORMAL INSPECTION, NORMOCEPHALIC - Eye Exam Eye Exam: Normal appearance - ENT Exam ENT Exam: Mucous Membranes Moist - Neck Exam Neck Exam: Normal Inspection - Respiratory Exam Respiratory Exam: Rales (noted in both lower lung hood,). absent: Accessory Muscle Use, Respiratory Distress - Cardiovascular Exam Cardiovascular Exam: REGULAR RHYTHM - GI/Abdominal Exam GI & Abdominal Exam: Soft, Hernia (abdominal hernia noted) - Extremities Exam Extremities Exam: Normal Inspection - Neurological Exam Neurological Exam: Alert, Awake (agitated at times) - Psychiatric Exam Psychiatric exam: Agitated - Skin Skin Exam: Dry, Normal Color, Warm Assessment and Plan - Assessment and Plan (Free Text) Assessment: CHF Plan: Ekg done stat ,shows NSR,poor progression of the R wave in the V leads. Pt encouraged to take nebulizer Rx ordered for him. Lasix 20 mg po ordered stat. IV Fluids held.
[2017-06-30] MEDS ORDERED: Insulin Lispro 1 UNITS/0.01 ML SC STA (22:26)
[2017-06-30 23:26] VITALS: BMI 34.9
[2017-06-30] MEDS ORDERED: Influenza Vaccine 60 mcg/0.5 mL SYR (4YR UP) IM ONE (23:26)
[2017-06-30] MEDS ORDERED: Pneumococcal 23-Valent Vaccine IM ONE (23:26)
[2017-07-01] MEDS ORDERED: Pantoprazole 40 mg EC Tab PO SCH (06:00)
[2017-07-01 07:08] LABS: ALB/GLOB RATIO 1.1 (1.1-1.8); ALBUMIN 4.1 g/dL (3.0-4.8); ALT/SGPT 28 U/L (7-56); AST/SGOT 33 U/L (14-36); BLOOD UREA NITROGEN 15 mg/dL (7-21); CALCIUM 9.2 mg/dL (8.4-10.5); GFR AFRICAN-AMERICAN > 60; GFR NON-AFRICAN AMERICAN 56
[2017-07-01] MEDS: Insulin Lispro (humaLOG) LOW Coverage SC SCH ×3 (08:58→16:44)
[2017-07-01] MEDS: Insulin Lispro 1 UNITS/0.01 ML SC SCH ×2 (08:58→12:25)
[2017-07-01 09:17] VITALS: BP 114/65; PULSE 84; RESP 20; TEMP 98.6; O2SAT 96
--- NOTE | 2017-07-01 10:06 | CARD ---
APPROVED REPORT EKG Measurement Heart [id number] <Conclusion> Normal sinus rhythm Normal ECG
--- NOTE | 2017-07-01 14:56 | CP.PCM.HP ---
History of Present Illness - History of Present Illness History of Present Illness: PGY-[address] Parikh Neurology consult: Dizziness with R arm pain Ms Morales, 62 F, with Hx DM1, CVA no residual weakness, HTN, CHF, DJD, cervical canal stenosis, presented to the emergency room with low blood sugar. Initial finger stick was 30 and treated with D50. Her blood glucose was [address] head (November 2016) no acute findings. Cervical spine CT (2016) showed moderate central canal stenosis at C3-C4 level and neuroforalinal narrowing at C3-T1. EKG at 12:07 normal sinus rhythm rate of 74 ROS - denies any fever, chills, nausea, vomiting, abdominal pain, chest pain, shortness of breath or any other complaints. (+) dizziness, no room spinning (+) occasional pain in her R arm. PMH CVA in the past with no residual deficit, with hx provoked seizure Hypertensive cardiovascular disease CHF COPD DM 1 with Hx DKA Bipolar and schizophrenia on topamax Degenerative joint disease Central canal stenosis Legally blind Hx lightheadedness with vertiginous component, on meclizine PSH Neck and L leg surgery Back surgery in remote past with lumbar laminectomy and fusion/dhara, 1979 Cholecustecomty Total abdominal hysterectomy with b/l salpingo-oophorectomy SH Ambulate with walker. Denied smoke, drink, drug All Aspirin, benadryl, trifluiperazine PMD Dr. Socrates Padilla Past Patient History - Infectious Disease Hx of Infectious Diseases: None - Tetanus Immunizations Tetanus Immunization: Unknown - Past Social History Smoking Status: Never Smoked - CARDIAC Hx Cardiac Disorders: Yes Hx Hypertension: Yes - PULMONARY Hx Chronic Obstructive Pulmonary Disease (COPD): Yes - NEUROLOGICAL HX Cerebrovascular Accident: Yes (left sided weakness, 1979) - HEENT Hx HEENT Problems: Yes (eyeglasses) Hx Blind: Yes (patient reports she is legally blind) - RENAL Hx Renal Failure: No - ENDOCRINE/METABOLIC Hx Diabetes Mellitus Type 1: Yes (dx at 11 yrs old) - HEMATOLOGICAL/ONCOLOGICAL Hx Blood Disorders: No Hx Cancer: No - INTEGUMENTARY Other/Comment: multiple skin discolorations rle - MUSCULOSKELETAL/RHEUMATOLOGICAL Hx Musculoskeletal Disorders: (left side weakness) Hx Back Pain: Yes Hx Falls: No Hx Unsteady Gait: Yes (walker) - GASTROINTESTINAL Hx Gastrointestinal Disorders: No - GENITOURINARY/GYNECOLOGICAL Hx Genitourinary Disorders: No - PSYCHIATRIC Hx Psychophysiologic Disorder: Yes Hx Depression: Yes Hx Substance Use: No Other/Comment: no hx of bipolar or schizophrenia as per pt - SURGICAL HISTORY Hx Cholecystectomy: Yes Hx Hysterectomy: Yes Hx Orthopedic Surgery: Yes (NECK, L LEG,BACK) Other/Comment: cervical spine sx in pt uncertain what type of sx she had done, lower back sx insertion of rods - ANESTHESIA Hx Anesthesia: Yes Hx Anesthesia Reactions: No Hx Malignant Hyperthermia: No Meds Allergies/Adverse Reactions: Allergies Allergy/AdvReac Type Severity Reaction Status Date / Time aspirin Allergy ANAPHYLAXIS Verified 06/30/17 21:34 diphenhydramine HCl Allergy ANAPHYLAXIS Verified 06/30/17 21:34 [From Benadryl] trifluoperazine Allergy ANAPHYLAXIS Verified 06/30/17 21:34 Physical Exam - Constitutional Appears: No Acute Distress - Head Exam Head Exam: ATRAUMATIC, NORMAL INSPECTION, NORMOCEPHALIC - Eye Exam Eye Exam: EOMI, Normal appearance, PERRL Pupil Exam: NORMAL ACCOMODATION - ENT Exam ENT Exam: Mucous Membranes Moist - Neck Exam Additional comments: supple - Respiratory Exam Respiratory Exam: Clear to Auscultation Bilateral, NORMAL BREATHING PATTERN - Cardiovascular Exam Cardiovascular Exam: REGULAR RHYTHM - Extremities Exam Extremities exam: Negative for: calf tenderness Additional comments: muscle atropy in LE and UE b/l - Neurological Exam Neurological exam: Alert, CN II-XII Intact, Oriented x3 Additional comments: Motor 4/5, R arm movement limited by pain Sensory decrease in distal extremities [id number] intact - Psychiatric Exam Psychiatric exam: Normal Affect, Normal Mood - Skin Skin Exam: Dry, Warm Results - Vital Signs Recent Vital Signs: Last Vital Signs Temp 98.6 F 07/01/17 06:00 Pulse 84 07/01/17 10:34 Resp 20 07/01/17 06:00 BP 114/65 07/01/17 10:34 Pulse Ox 96 07/01/17 06:00 - Labs Result Diagrams: 06/30/17 11:50 07/01/17 06:00 Labs: Laboratory Results - last 24 hr 06/30/17 06/30/17 06/30/17 15:15 16:55 20:32 Sodium Potassium Chloride Carbon Dioxide Anion Gap BUN Creatinine Est GFR ( Amer) Est GFR (Non-Af Amer) POC Glucose (mg/dL) 207 H 263 H 365 H Random Glucose Hemoglobin A1c Calcium Total Bilirubin AST ALT Alkaline Phosphatase Troponin I Total Protein Albumin Globulin Albumin/Globulin Ratio 06/30/17 07/01/17 07/01/17 21:57 00:30 06:00 Sodium Potassium Chloride Carbon Dioxide Anion Gap BUN Creatinine Est GFR ( Amer) Est GFR (Non-Af Amer) POC Glucose (mg/dL) 401 H* Random Glucose Hemoglobin A1c Calcium Total Bilirubin AST ALT Alkaline Phosphatase Troponin I < 0.01 < 0.01 Total Protein Albumin Globulin Albumin/Globulin Ratio 07/01/17 07/01/17 07/01/17 06:00 06:00 07:21 Sodium 141 Potassium 3.9 Chloride 108 H Carbon Dioxide 23 Anion Gap 14 BUN 15 Creatinine 1.0 Est GFR ( Amer) > 60 Est GFR (Non-Af Amer) 56 POC Glucose (mg/dL) 262 H Random Glucose 194 H Hemoglobin A1c 11.4 H Calcium 9.2 Total Bilirubin 0.6 AST 33 ALT 28 Alkaline Phosphatase 106 Troponin I Total Protein 7.7 Albumin 4.1 Globulin 3.6 Albumin/Globulin Ratio 1.1 07/01/17 11:27 Sodium Potassium Chloride Carbon Dioxide Anion Gap BUN Creatinine Est GFR ( Amer) Est GFR (Non-Af Amer) POC Glucose (mg/dL) 385 H Random Glucose Hemoglobin A1c Calcium Total Bilirubin AST ALT Alkaline Phosphatase Troponin I Total Protein Albumin Globulin Albumin/Globulin Ratio Assessment & Plan - Assessment and Plan (Free Text) Plan: Neurology consult: Dizziness with R arm pain Ms Morales, 62 F, with Hx DM1, CVA no residual weakness, HTN, CHF, DJD, cervical canal stenosis, presented to the emergency room with low blood sugar. Initial finger stick was 30 and treated with D50. Her blood glucose was [address] head (November 2016) no acute findings. Cervical spine CT (2016) showed moderate central canal stenosis at C3-C4 level and neuroforalinal narrowing at C3-T1. EKG normal sinus rhythm rate of 74. Her sugar fluctuate during the hospital stay. She was found to have orthostatic hypotension Dizziness related to hypo- and hyper-glycemia, orthostatic hypotension, and decondition state Cervical radiculopathy from Central canal stenosis with R carpel tunnel syndrome Diabetic neuropathy, DJD, and muscle atrophy Gait dysfunction Uncontrolled diabetes, A1C 11.4 Visually impair High fall risk Allergy to Aspirin, benadryl, stelazine, cortisone - Ck CT head and CT cervical spine - diabetic education - Maintain blood glucose between 140-180 - monitor electrolytes and correct accordingly - physical therapy for gait training, strength and balance - Occupational therapy for cervical radiculopathy - Recommend subacute rehabilitation - Follow up with neurology outpatient Orthostatic hypotension (Standing 188, sitting 143) - Maintain SBP 130-140 - Avoid sudden movement; Shift from supine to an erect position in gradual stages. - Maintain euvolemic - Avoid anemia, which can exacerbate symptoms s/r/d/w Dr. Parikh
--- NOTE | 2017-07-01 15:12 | CP.PCM.CON ---
Addendum entered and electronically signed by Cheyenne Christianson DO 07/01/17 15:34 : CT brain and cervical spine cancelled. Pt is to be followed up with neurology outpt. Pt has home PT. Original Note: <Cheyenne Christianson - Last Filed: 07/01/17 15:09> History of Present Illness - History of Present Illness History of Present Illness: PGY-[address] Parikh Neurology consult: Dizziness with R arm pain Ms Morales, 62 F, with Hx DM1, CVA no residual weakness, HTN, CHF, DJD, cervical canal stenosis, presented to the emergency room with low blood sugar. Initial finger stick was 30 and treated with D50. Her blood glucose was [address] head (November 2016) no acute findings. Cervical spine CT (2016) showed moderate central canal stenosis at C3-C4 level and neuroforalinal narrowing at C3-T1. EKG at 12:07 normal sinus rhythm rate of 74 ROS - denies any fever, chills, nausea, vomiting, abdominal pain, chest pain, shortness of breath or any other complaints. (+) dizziness, no room spinning (+) occasional pain in her R arm. PMH CVA in the past with no residual deficit, with hx provoked seizure Hypertensive cardiovascular disease CHF COPD DM 1 with Hx DKA Bipolar and schizophrenia on topamax Degenerative joint disease Central canal stenosis Legally blind Hx lightheadedness with vertiginous component, on meclizine PSH Neck and L leg surgery Back surgery in remote past with lumbar laminectomy and fusion/dhara, 1979 Cholecustecomty Total abdominal hysterectomy with b/l salpingo-oophorectomy SH Ambulate with walker. Denied smoke, drink, drug All Aspirin, benadryl, trifluiperazine PMD Dr. Socrates Padilla Past Patient History - Infectious Disease Hx of Infectious Diseases: None - Tetanus Immunizations Tetanus Immunization: Unknown - Past Social History Smoking Status: Never Smoked - CARDIAC Hx Cardiac Disorders: Yes Hx Hypertension: Yes - PULMONARY Hx Chronic Obstructive Pulmonary Disease (COPD): Yes - NEUROLOGICAL HX Cerebrovascular Accident: Yes (left sided weakness, 1979) - HEENT Hx HEENT Problems: Yes (eyeglasses) Hx Blind: Yes (patient reports she is legally blind) - RENAL Hx Renal Failure: No - ENDOCRINE/METABOLIC Hx Diabetes Mellitus Type 1: Yes (dx at 11 yrs old) - HEMATOLOGICAL/ONCOLOGICAL Hx Blood Disorders: No Hx Cancer: No - INTEGUMENTARY Other/Comment: multiple skin discolorations rle - MUSCULOSKELETAL/RHEUMATOLOGICAL Hx Musculoskeletal Disorders: (left side weakness) Hx Back Pain: Yes Hx Falls: No Hx Unsteady Gait: Yes (walker) - GASTROINTESTINAL Hx Gastrointestinal Disorders: No - GENITOURINARY/GYNECOLOGICAL Hx Genitourinary Disorders: No - PSYCHIATRIC Hx Psychophysiologic Disorder: Yes Hx Depression: Yes Hx Substance Use: No Other/Comment: no hx of bipolar or schizophrenia as per pt - SURGICAL HISTORY Hx Cholecystectomy: Yes Hx Hysterectomy: Yes Hx Orthopedic Surgery: Yes (NECK, L LEG,BACK) Other/Comment: cervical spine sx in pt uncertain what type of sx she had done, lower back sx insertion of rods - ANESTHESIA Hx Anesthesia: Yes Hx Anesthesia Reactions: No Hx Malignant Hyperthermia: No Meds Allergies/Adverse Reactions: Allergies Allergy/AdvReac Type Severity Reaction Status Date / Time aspirin Allergy ANAPHYLAXIS Verified 06/30/17 21:34 diphenhydramine HCl Allergy ANAPHYLAXIS Verified 06/30/17 21:34 [From Benadryl] trifluoperazine Allergy ANAPHYLAXIS Verified 06/30/17 21:34 - Medications Medications: Current Medications Atorvastatin Calcium (Lipitor) 20 mg PO DIN LELIA Clopidogrel Bisulfate (Plavix) 75 mg PO DAILY [facility] Last Admin: 07/01/17 10:34 Dose: 75 mg Insulin Detemir (Levemir) 20 unit SC HS [facility] Insulin Human Lispro (Humalog Low) 0 units SC ACHS [facility] PRN Reason: Protocol Last Admin: 07/01/17 12:25 Dose: 2 units Insulin Human Lispro (Humalog) 8 units SC AC [facility] Last Admin: 07/01/17 12:25 Dose: 8 units Losartan Potassium (Cozaar) 50 mg PO DAILY [facility] Last Admin: 07/01/17 10:34 Dose: 50 mg Meclizine HCl (Antivert) 25 mg PO Q6H PRN PRN Reason: Dizziness Last Admin: 07/01/17 10:42 Dose: 25 mg Pantoprazole Sodium (Protonix Ec Tab) 40 mg PO 0600 [facility] Last Admin: 07/01/17 06:01 Dose: 40 mg Topiramate (Topamax) 100 mg PO BID [facility] PRN Reason: Protocol Last Admin: 07/01/17 12:24 Dose: 100 mg Venlafaxine HCl (Effexor Xr) 75 mg PO BID LELIA Physical Exam - Constitutional Appears: No Acute Distress - Head Exam Head Exam: ATRAUMATIC, NORMAL INSPECTION, NORMOCEPHALIC - Eye Exam Eye Exam: EOMI, Normal appearance, PERRL Pupil Exam: NORMAL ACCOMODATION, PERRL - ENT Exam ENT Exam: Mucous Membranes Moist - Neck Exam Additional comments: supple - Respiratory Exam Respiratory Exam: Clear to Auscultation Bilateral, NORMAL BREATHING PATTERN - Cardiovascular Exam Cardiovascular Exam: REGULAR RHYTHM, +S1, +S2 - Extremities Exam Extremities exam: Negative for: calf tenderness Additional comments: muscle atropy in LE and UE b/l - Neurological Exam Neurological exam: Alert, CN II-XII Intact, Oriented x3 Additional comments: Motor 4/5, R arm movement limited by pain Sensory decrease in distal extremities [id number] intact - Psychiatric Exam Psychiatric exam: Normal Affect, Normal Mood - Skin Skin Exam: Dry Results - Vital Signs Recent Vital Signs: Last Vital Signs Temp 98.6 F 07/01/17 06:00 Pulse 84 07/01/17 10:34 Resp 20 07/01/17 06:00 BP 114/65 07/01/17 10:34 Pulse Ox 96 07/01/17 06:00 - Labs Result Diagrams: 06/30/17 11:50 07/01/17 06:00 Labs: Laboratory Results - last 24 hr 06/30/17 06/30/17 06/30/17 15:15 16:55 20:32 Sodium Potassium Chloride Carbon Dioxide Anion Gap BUN Creatinine Est GFR ( Amer) Est GFR (Non-Af Amer) POC Glucose (mg/dL) 207 H 263 H 365 H Random Glucose Hemoglobin A1c Calcium Total Bilirubin AST ALT Alkaline Phosphatase Troponin I Total Protein Albumin Globulin Albumin/Globulin Ratio 06/30/17 07/01/17 07/01/17 21:57 00:30 06:00 Sodium Potassium Chloride Carbon Dioxide Anion Gap BUN Creatinine Est GFR ( Amer) Est GFR (Non-Af Amer) POC Glucose (mg/dL) 401 H* Random Glucose Hemoglobin A1c Calcium Total Bilirubin AST ALT Alkaline Phosphatase Troponin I < 0.01 < 0.01 Total Protein Albumin Globulin Albumin/Globulin Ratio 07/01/17 07/01/17 07/01/17 06:00 06:00 07:21 Sodium 141 Potassium 3.9 Chloride 108 H Carbon Dioxide 23 Anion Gap 14 BUN 15 Creatinine 1.0 Est GFR ( Amer) > 60 Est GFR (Non-Af Amer) 56 POC Glucose (mg/dL) 262 H Random Glucose 194 H Hemoglobin A1c 11.4 H Calcium 9.2 Total Bilirubin 0.6 AST 33 ALT 28 Alkaline Phosphatase 106 Troponin I Total Protein 7.7 Albumin 4.1 Globulin 3.6 Albumin/Globulin Ratio 1.1 07/01/17 11:27 Sodium Potassium Chloride Carbon Dioxide Anion Gap BUN Creatinine Est GFR ( Amer) Est GFR (Non-Af Amer) POC Glucose (mg/dL) 385 H Random Glucose Hemoglobin A1c Calcium Total Bilirubin AST ALT Alkaline Phosphatase Troponin I Total Protein Albumin Globulin Albumin/Globulin Ratio Assessment & Plan - Assessment and Plan (Free Text) Plan: Neurology consult: Dizziness with R arm pain Ms Morales, 62 F, with Hx DM1, CVA no residual weakness, HTN, CHF, DJD, cervical canal stenosis, presented to the emergency room with low blood sugar. Initial finger stick was 30 and treated with D50. Her blood glucose was [address] head (November 2016) no acute findings. Cervical spine CT (2016) showed moderate central canal stenosis at C3-C4 level and neuroforalinal narrowing at C3-T1. EKG normal sinus rhythm rate of 74. Her sugar fluctuate during the hospital stay. She was found to have orthostatic hypotension Dizziness related to hypo- and hyper-glycemia, orthostatic hypotension, and decondition state Cervical radiculopathy from Central canal stenosis with R carpel tunnel syndrome Diabetic neuropathy, DJD, and muscle atrophy Gait dysfunction Uncontrolled diabetes, A1C 11.4 Visually impair High fall risk Allergy to Aspirin, benadryl, stelazine, cortisone - Ck CT head and CT cervical spine - diabetic education - Maintain blood glucose between 140-180 - monitor electrolytes and correct accordingly - physical therapy for gait training, strength and balance - Occupational therapy for cervical radiculopathy - Recommend subacute rehabilitation - Follow up with neurology outpatient Orthostatic hypotension (Standing 188, sitting 143) - Maintain SBP 130-140 - Avoid sudden movement; Shift from supine to an erect position in gradual stages. - Maintain euvolemic - Avoid anemia, which can exacerbate symptoms s/r/d/w Dr. Parikh <Damon Parikh - Last Filed: 07/02/17 10:00> Results - Vital Signs Recent Vital Signs: Last Vital Signs Temp 98.6 F 07/01/17 06:00 Pulse 84 07/01/17 10:34 Resp 20 07/01/17 06:00 BP 114/65 07/01/17 10:34 Pulse Ox 96 07/01/17 06:00 - Labs Result Diagrams: 06/30/17 11:50 07/01/17 06:00 Labs: Laboratory Results - last 24 hr 07/01/17 07/01/17 07/01/17 06:00 11:27 15:41 POC Glucose (mg/dL) 385 H Hemoglobin A1c 11.4 H Troponin I < 0.01 07/01/17 16:09 POC Glucose (mg/dL) 122 H Hemoglobin A1c Troponin I Attending/Attestation - Attestation I have personally seen and examined this patient.: Yes I have fully participated in the care of the patient.: Yes I have reviewed all pertinent clinical information: Yes
[2017-07-01] MEDS ORDERED: Venlafaxine 75 mg ER Cap PO SCH (18:00)
[2017-07-01] MEDS ORDERED: Insulin Detemir 100 units/ml Vial (Levemir) SC SCH (22:00)
--- NOTE | 2017-07-01 22:35 | HP ---
HISTORY OF PRESENT ILLNESS: The patient is a 62-year-old female, admitted through the emergency department on 06/30/2017 with hypoglycemia. The patient reportedly took insulin without eating earlier today, was given IV D5W in the emergency department as well as food, but continued to be hypoglycemic. The patient has mild diaphoresis. There is no chest pain. No shortness of breath. No nausea. No vomiting. No diarrhea. No cough. No fever or chills. PAST MEDICAL HISTORY: Includes type 1 diabetes with recurrent admissions for diabetic ketoacidosis, hypertension, hypertensive cardiovascular disease, CHF, COPD, history of CVA in the past with no residual deficits. The patient has a history of bipolar disorder and schizophrenia. PAST SURGICAL HISTORY: Includes back surgery in the remote past with lumbar laminectomy and fusion. The patient has a history of cholecystectomy and total abdominal hysterectomy and bilateral salpingo-oophorectomy. ALLERGIES: INCLUDE ASPIRIN, BENADRYL, STELAZINE AND CORTISONE. CURRENT MEDICATIONS: Include losartan 50 mg daily, Effexor 75 mg three times daily, Neurontin 100 mg three times daily, Plavix 75 mg daily, Topamax 100 mg twice daily, and Toujeo 14 units a.c. and at bedtime. The patient has been seen in consultation by Dr. Polly Carrillo on past admissions. REVIEW OF SYSTEMS: Essentially as above. There is no abdominal pain. No melena. No bright red blood per rectum. No jaundice or rash. PHYSICAL EXAMINATION: GENERAL: The patient is a well-developed obese female, in no acute distress. VITAL SIGNS: Blood pressure 114/65, pulse 84, temperature 98.6, respiratory rate 20. HEENT: Head is normocephalic, atraumatic. Pupils ARE equal, round and reactive to light. Extraocular movements are intact. NECK: Supple. No carotid bruit. No adenopathy. No thyromegaly. LUNGS: Clear. HEART: Regular rate and rhythm. ABDOMEN: Soft and nontender. Bowel sounds are normoactive. EXTREMITIES: Without cyanosis, clubbing or edema. NEUROLOGICALLY: The patient is awake and responsive without focal, sensory or motor deficits. Gait is slightly ataxic due to the patient complains of dizziness. SKIN: Warm and dry. LABORATORY DATA: WBCs 5.6, hemoglobin 11.3, hematocrit 33.5, sodium 141, potassium 3.9, chloride 108, CO2 of 23, BUN 15, creatinine 1.0 with glucose 194. IMPRESSION: 1. Hypoglycemia. 2. Type 1 diabetes mellitus, history of uncontrolled diabetes mellitus and recurrent admissions for diabetic ketoacidosis. 3. Chronic obstructive pulmonary disease. 4. Hypertension, hypertensive cardiovascular disease and congestive heart failure. 5. Degenerative joint disease. 6. Chronic schizophrenia and bipolar disorder. PLAN: The patient is admitted to the medical-surgical unit. Her blood sugars have been high. She is on regular insulin coverage. Consultation with Dr. Carrillo is appreciated. We will discontinue IV D5W and place her on regular insulin coverage low-dose protocol. Physical therapy and social work for discharge planning with a Neurology consult for dizziness and start meclizine 25 mg q.6 hours p.r.n. CLAIR Hay MD
--- NOTE | 2017-07-02 03:48 | PN ---
DATE: ENDO FOLLOWUP NOTE LOCATION: In room 365. SUBJECTIVE: This is a 62-year-old female with known history of type 2 insulin-requiring diabetes with extremes of glycemic fluctuations presenting here with marked hyperglycemic accelerations and is now being referred for diabetic evaluation management. PAST MEDICAL HISTORY: As mentioned above, history of type 2 insulin-requiring diabetes on a combination of Levemir given as 30 units subcu at bedtime daily and Humalog given as 10 units t.i.d. p.r.n. as noted. History of hypertension and dyslipidemia, history of diabetic retinopathy, polyneuropathy and vasculopathy as noted. History of a previous CVA with no residual deficit and apparent seizure event as noted. History of coronary artery disease with previous admissions for congestive heart failure, history of underlying chronic obstructive lung disease. She also has history of bipolar disorder with chronic schizophrenia, on psychotropic medications. She also has history of diabetic retinopathy and polyneuropathy and is currently legally blind at this time. FAMILY HISTORY: Positive for diabetes and hypertension. SOCIAL HISTORY: The patient has supportive family. No known substance use. REVIEW OF SYSTEMS: As mentioned above. Admits to generalized body weakness with easy fatigability and tiredness and suboptimal energy level. Also admits to dizziness and lightheadedness, worse on the day of admission. No chest pains or palpitations or PND. Her oral intake has been variable with nausea, dyspepsia and vague upper abdominal pains. Also admits to marked polyuria, nocturia and polydipsia over the last day or so prior to admission. PHYSICAL EXAMINATION GENERAL: This is an overweight female, in no apparent distress with a blood pressure of 140/80, pulse of 70 beats per minute, regular, temperature 98, respirations 20, height is 5 feet 5 inches, weight is 210 pounds. HEENT: Head is normocephalic. Eyes anicteric with pink conjunctivae. Funduscopy not possible at this time. Ears, nose and throat otherwise normal. NECK: Supple. Thyroid gland is normal in size. No carotid bruits or cervical adenopathy. CARDIOPULMONARY: Has an adynamic precordium. S1, S2 is rapid and regular. LUNGS: Clear to auscultation. ABDOMEN: Flat, soft with positive bowel sounds. EXTREMITIES: No peripheral edema. Pulses are +2 bilaterally. LABORATORY: Her chemistry showed a BUN of 15, sodium 141, potassium 3.9, chloride 108, CO2 23, glucose 262 and creatinine 1.0. Her A1c is 11.4%. The glucose levels are fluctuating as noted. ASSESSMENT: This is a 62-year-old female with uncontrolled and decompensated type 2 insulin-requiring diabetes with marked hyperglycemic accelerations and previous admissions with diabetic ketoacidosis and hyperosmolar hyperglycemic state as noted. She also has diabetic microvascular complications of retinopathy, polyneuropathy and diabetic microvascular complications of cerebrovascular disease and coronary artery disease with underlying peripheral arterial disease and vasculopathy. Plan of management as discussed with the staff. We will modify her current insulin regimen and she presented here with symptomatic hypoglycemia related to a very variable and suboptimal meal portions at this time. We will lower her basal and bolus insulin regimen just for safety especially outpatient and I have lowered the Levemir down to 20 units subcu at bedtime daily to start today. We will also lower the Humalog to 8 units subcu t.i.d. before meals as ordered. We will obtain serial chemistries and supplement accordingly as needed. Polly Carrillo MD
== END 2017-07-01 18:31 | disposition home or self-care (01) ==
LOC: ED 11:14 → ERH 14:59 → 3RNO 17:30
PROVIDERS: ADMIT Internal Medicine; ATTEND Internal Medicine
DX: E11.649 Type 2 diabetes mellitus with hypoglycemia without coma (principal); E11.51 Type 2 diabetes mellitus with diabetic peripheral angiopathy without gangrene; E11.42 Type 2 diabetes mellitus with diabetic polyneuropathy; I95.1 Orthostatic hypotension; I11.0 Hypertensive heart disease with heart failure; I50.9 Heart failure, unspecified; J44.9 Chronic obstructive pulmonary disease, unspecified; M19.90 Unspecified osteoarthritis, unspecified site; M48.02 Spinal stenosis, cervical region; F20.9 Schizophrenia, unspecified; F31.9 Bipolar disorder, unspecified; Z86.73 Personal history of transient ischemic attack (TIA), and cerebral infarction without residual deficits; Z88.6 Allergy status to analgesic agent; Z79.4 Long term (current) use of insulin
CPT/HCPCS: 36415; 71045; 80053; 82948; 83036; 84484; 85025; 93005; 97116; 97162; 97530; 99285; G0378; G8978; G8979; J7042

== ENCOUNTER 2018-03-30 09:47 | Inpatient (IN) | payer MEDICARE, OTHER ==
[2018-03-30] MEDS ORDERED: Sodium Chloride 0.9% 1,000 ML IV STA ×4 (10:08→15:05)
--- NOTE | 2018-03-30 10:22 | ED PDOC ---
Arrival/HPI <Rubin Jones - Last Filed: 03/30/18 12:03> - General Historian: Patient EM Caveat: Altered Mental Status - History of Present Illness Narrative History of Present Illness (Text): 03/30/18 10:22 Pt is a 63 yo F with pmhx of DM I who comes in for AMS and hyperglycemia. Pt is AOx1 and is unable to answer questions well. All she admits to is not feeling well. She denies any other acute complaints at this time. ROS is limited due to pts AMS. Time/Duration: Prior to Arrival <Nilda Skinner - Last Filed: 03/30/18 19:05> - General Time Seen by Provider: 03/30/18 09:50 Past Medical History - Provider Review Nursing Documentation Reviewed: Yes <Rubin Jones - Last Filed: 03/30/18 12:03> - Provider Review Nursing Documentation Reviewed: Yes - Infectious Disease Hx of Infectious Diseases: None - Tetanus Immunization Tetanus Immunization: Unknown - Cardiac Hx Cardiac Disorders: Yes Hx Hypertension: Yes - Pulmonary Hx Chronic Obstructive Pulmonary Disease (COPD): Yes - Neurological HX Cerebrovascular Accident: Yes (left sided weakness, 1979) - HEENT Hx HEENT Disorder: Yes (eyeglasses) Hx Blind: Yes (patient reports she is legally blind) - Renal Hx Renal Failure: No - Endocrine/Metabolic Hx Diabetes Mellitus Type 1: Yes (dx at 11 yrs old) - Hematological/Oncological Hx Blood Disorders: No Hx Cancer: No - Integumentary Other/Comment: multiple skin discolorations rle - Musculoskeletal/Rheumatological Hx Musculoskeletal Disorders: (left side weakness) Hx Back Pain: Yes Hx Falls: No Hx Unsteady Gait: Yes (walker) - Gastrointestinal Hx Gastrointestinal Disorders: No - Genitourinary/Gynecological Hx Genitourinary Disorders: No - Psychiatric Hx Psychophysiologic Disorder: Yes Hx Depression: Yes Hx Substance Use: No Other/Comment: no hx of bipolar or schizophrenia as per pt - Surgical History Hx Cholecystectomy: Yes Hx Hysterectomy: Yes Hx Orthopedic Surgery: Yes (NECK, L LEG,BACK) Other/Comment: cervical spine sx in pt uncertain what type of sx she had done, lower back sx insertion of rods - Anesthesia Hx Anesthesia: Yes Hx Anesthesia Reactions: No Hx Malignant Hyperthermia: No <Nilda Skinner - Last Filed: 03/30/18 19:05> Family/Social History - Physician Review Nursing Documentation Reviewed: Yes Family/Social History: No Known Family HX <KarenRubin - Last Filed: 03/30/18 12:03> Smoking Status: Never Smoked Hx Alcohol Use: No Hx Substance Use: No <Dmitriy Skinnerhammad - Last Filed: 03/30/18 19:05> Allergies/Home Meds <KarenRubin - Last Filed: 03/30/18 12:03> <Jose De Jesus Skinnermad - Last Filed: 03/30/18 19:05> Allergies/Adverse Reactions: Allergies aspirin Allergy (Verified 06/30/17 21:34) ANAPHYLAXIS diphenhydramine HCl [From Benadryl] Allergy (Verified 06/30/17 21:34) ANAPHYLAXIS trifluoperazine Allergy (Verified 06/30/17 21:34) ANAPHYLAXIS Home Medications: Home Meds Medication Instructions Recorded Confirmed RX: Benzonatate [Tessalon Perle] 100 mg PO Q6H PRN 03/30/18 03/30/18 RX: Meloxicam [Mobic] 15 mg PO DAILY 03/30/18 03/30/18 Venlafaxine HCl [Venlafaxine HCl 75 mg PO TID 03/30/18 03/30/18 ER] Review of Systems - Physician Review All systems were reviewed & negative as marked: Yes <DonovanRubin renner - Last Filed: 03/30/18 12:03> - Physician Review All systems were reviewed & negative as marked: Yes - Review of Systems Systems not reviewed;Unavailable: Acuity of Condition <Jose De Jesus Skinnermad - Last Filed: 03/30/18 19:05> Physical Exam Blood Pressure: Normal Pulse: Regular Respiratory Rate: Normal <DonovanRubin renner - Last Filed: 03/30/18 12:03> - Physical Exam Physical Exam Limitations: Altered Mental Status Blood Pressure: Normal Pulse: Regular Respiratory Rate: Normal Appearance: No: Other (middle aged female, awake, alert at times confused) Mental Status: Positive for: Confused - Systems Exam Head: Present: Atraumatic, Normocephalic Pupils: Present: PERRL Extroacular Muscles: Present: EOMI Mouth: Present: Dry Respiratory/Chest: Present: Decreased Breath Sounds. No: Respiratory Distress, Accessory Muscle Use, Wheezes Cardiovascular: Present: Regular Rate and Rhythm, Normal S1, S2. No: Murmurs, Rub, Gallop Abdomen: Present: Normal Bowel Sounds. No: Distention Neurological: Present: Speech Normal, Other (Pt is awake and alert but is confused and not oriented to place or self. Pt has difficulty following commands) Skin: Present: Warm, Dry, Normal Color. No: Rashes Psychiatric: Present: Alert <Nilda Skinner - Last Filed: 03/30/18 19:05> Medical Decision Making ED Course and Treatment: 03/30/18 10:36 Impression: 63 year old female presents to the Emergency department for AMS and hyperglycemia. Patient Seen with Resident: In agreement with resident note which contains more details about the patient. Patient seen and evaluated with resident. Came up with plan and treatment toge ther. Plan: -- EKG -- Labs -- CBC (with differential) -- Partial Thromboplastin -- Prothrombin Time -- X-ray of chest -- Glucose, POC routine -- IV fluids -- Urinalysis -- Reassess and disposition Prior Visits: Notes and results from previous visits were reviewed. Patient was last seen in the emergency department on Progress Notes: - Lab Interpretations Lab Results: 03/30/18 10:25 Lab Results 03/30/18 10:25: PT 11.6, INR 1.01, APTT 29.1 03/30/18 10:25: WBC 8.2 D, RBC 4.31, Hgb 12.7, Hct 38.2, MCV 88.6, MCH 29.5, MCHC 33.2, RDW 13.0, Plt Count 222, MPV 10.4, Gran % 61.6, Lymph % (Auto) 30.6, [place] % (Auto) 4.8, Eos % (Auto) 2.4, Baso % (Auto) 0.6, Gran # 5.04, Lymph # (Auto) 2.5, [place] # (Auto) 0.4, Eos # (Auto) 0.2, Baso # (Auto) 0.05 03/30/18 10:25: pO2 80 H, VBG pH 7.13 L*, VBG pCO2 37.0 L, VBG HCO3 12.3 L, VBG Total CO2 13.4 L, VBG O2 Sat (Calc) 97.1 H, VBG Base Excess -16.1 L, VBG Potassium 7.0 H*, Sodium 128.0 L, Chloride 95.0 L, Glucose 589 H*, Lactate 1.9, FiO2 21.0, Venous Blood Potassium 7.0 H* 03/30/18 09:54: POC Glucose (mg/dL) 468 H* - RAD Interpretation Narrative RAD Interpretations (Text): X-Ray of chest reviewed by radiologist, shows: Dictator : Aruna Mejia MD Report Date : 03/30/2018 10:27:48 FINDINGS: LUNGS: The lungs are well inflated and clear. PLEURA: No pleural effusions or pneumothorax. CARDIOVASCULAR: The heart is normal in size. No aortic atherosclerotic calcification present. OSSEOUS STRUCTURES: Within normal limits for the patient's age. VISUALIZED UPPER ABDOMEN: Normal. OTHER FINDINGS: None. IMPRESSION: No active pulmonary disease. Radiology Orders: 03/30/18 10:07 CHEST PORTABLE [RAD] Stat Retail Team Member: Radiologist - Medication Orders Current Medication Orders: Discontinued Medications Sodium Chloride (Sodium Chloride 0.9%) 1,000 mls @ 999 mls/hr IV .Q1H1M STA Stop: 03/30/18 11:08 Last Admin: 03/30/18 10:29 Dose: 999 mls/hr eMAR Start Stop Document 03/30/18 10:29 [place] (Rec: 03/30/18 10:29 [facility]) Intravenous Solution Start Date 03/30/18 Start Time 10:29 End Date 03/30/18 End time 11:30 Total Infusion Time 61 Sodium Chloride (Sodium Chloride 0.9%) 1,000 mls @ 999 mls/hr IV .Q1H1M STA Stop: 03/30/18 11:52 <Rubin Jones - Last Filed: 03/30/18 12:03> - Lab Interpretations Lab Results: Lab Results 03/30/18 09:54: POC Glucose (mg/dL) 468 H* - RAD Interpretation Radiology Orders: 03/30/18 10:07 CHEST PORTABLE [RAD] Stat - Medication Orders Current Medication Orders: Sodium Chloride (Sodium Chloride 0.9%) 1,000 mls @ 999 mls/hr IV .Q1H1M STA Stop: 03/30/18 11:08 <Nilda Skinner - Last Filed: 03/30/18 19:05> - PA / AGRICULTURAL SERVICE TECHNICIAN / Resident Statement / has reviewed & agrees with the documentation as recorded. / has examined the patient and agrees with the treatment plan. - Scribe Statement The provider has reviewed the documentation as recorded by the Scribe Christine Garcia All medical record entries made by the Scribe were at my direction and perso ngoc dictated by me. I have reviewed the chart and agree that the record accurately reflects my personal performance of the history, physical exam, medical decision making, and the department course for this patient. I have also personally directed, reviewed, and agree with the discharge instructions and disposition. <Rubin Jones - Last Filed: 03/30/18 12:03> Disposition/Present on Arrival <Rubin Jones - Last Filed: 03/30/18 12:03> - Present on Arrival Any Indicators Present on Arrival: Yes History of DVT/PE: No History of Uncontrolled Diabetes: Yes Urinary Catheter: No History Surgical Site Infection Following: None - Disposition Have Diagnosis and Disposition been Completed?: Yes Disposition Time: 14:15 Patient Plan: ICU <Nilda Skinner - Last Filed: 03/30/18 19:05> - Disposition Diagnosis: DKA (diabetic ketoacidoses), Hyperglycemia Disposition: HOSPITALIZED Patient Problems: Current Active Problems Problem Status Onset DKA (diabetic ketoacidoses) Acute Hyperglycemia Chronic Condition: CRITICAL
--- NOTE | 2018-03-30 10:32 | RAD ---
Date of service: 03/30/2018 HISTORY: ams COMPARISON: 06/30/2017 FINDINGS: LUNGS: The lungs are well inflated and clear. PLEURA: No pleural effusions or pneumothorax. CARDIOVASCULAR: The heart is normal in size. No aortic atherosclerotic calcification present. OSSEOUS STRUCTURES: Within normal limits for the patient's age. VISUALIZED UPPER ABDOMEN: Normal. OTHER FINDINGS: None. IMPRESSION: No active pulmonary disease.
[2018-03-30 10:45] LABS: VENOUS BLOOD GAS BASE EXCESS -16.1 mmol/L (0.0-2.0); VENOUS BLOOD GAS PO2 80 mm/Hg (30-55); VENOUS BLOOD PH 7.13 (7.32-7.43)
[2018-03-30 10:46] LABS: BASO # 0.05 K/mm3 (0.0-2.0); BASO % 0.6 % (0.0-3.0); EOS # 0.2 (0.0-0.7); EOS % 2.4 % (1.5-5.0); GRAN # 5.04 (1.4-6.5); GRAN % 61.6 % (50.0-68.0); HEMOGLOBIN 12.7 g/dL (12.0-16.0); LYMPH # 2.5 (1.2-3.4); LYMPH % 30.6 % (22.0-35.0); MEAN CELL VOLUME 88.6 fl (80.0-105.0); MEAN CORPUSCULAR HEMOGLOBIN 29.5 pg (25.0-35.0); MEAN CORPUSCULAR HGB CONC 33.2 g/dl (31.0-37.0); MEAN PLATELET VOLUME 10.4 fl (7.0-11.0); MONO # 0.4 (0.1-0.6); MONO % 4.8 % (1.0-6.0); RBC 4.31 10^6/uL (3.5-6.1); WHITE BLOOD COUNT 8.2 10^3/ul (4.5-11.0)
[2018-03-30 10:58] LABS: INR 1.01; PARTIAL THROMBOPLASTIN TIME 29.1 Seconds (25.1-36.5); PROTHROMBIN TIME 11.6 SECONDS (9.4-12.5)
[2018-03-30 12:19] LABS: PH,URINE 5.5 (4.7-8.0); URINE BILIRUBIN NEGATIVE (NEGATIVE); URINE BLOOD NEGATIVE (NEGATIVE); URINE GLUCOSE (UA) >=1000 mg/dL (NEGATIVE); URINE LEUKOCYTE ESTERASE NEGATIVE Leu/uL (NEGATIVE); URINE PROTEIN NEGATIVE mg/dL (<30 mg/dL); URINE UROBILINOGEN 0.2 E.U./dL (<1 E.U./dL)
[2018-03-30 12:21] LABS: URINE APPEARANCE CLEAR (CLEAR); URINE COLOR YELLOW (YELLOW)
[2018-03-30 13:24] LABS: TROPONIN I < 0.01 ng/mL
[2018-03-30 13:43] LABS: ALB/GLOB RATIO 1.1 (1.1-1.8); ALBUMIN 4.1 g/dL (3.0-4.8); ALT/SGPT 21 U/L (7-56); AST/SGOT 18 U/L (14-36); BLOOD UREA NITROGEN 29 mg/dL (7-21); CALCIUM 8.9 mg/dL (8.4-10.5); GFR NON-AFRICAN AMERICAN 38
[2018-03-30] MEDS ORDERED: Insulin Regular 100 UNITS in Sodium Chloride 0.9% 99 ML IV PRN (13:43)
--- NOTE | 2018-03-30 14:42 | CP.PCM.CON ---
<Maisha Mujica - Last Filed: 03/30/18 15:28> History of Present Illness - History of Present Illness History of Present Illness: Maisha Mujica, PGY-1, CCU Consult Note for Dr. Trujillo 63 year old female with past medical history of type 1 Diabetes with recurrent admission for DKA, HTN, hypertensive cardiovascular disease, hypertension, CHF, COPD, history of CVA with no residual deficits, bipolar disorder, schizophrenia presents by EMS because of lethargy as per family at bedside. Family called EMS when patient complained of lethargy. Patient is AAOx1 being only oriented to person but not place or time. In ED, patient was found to have glucose of 553 with anion gap of 23 and >80 ketones on her UA. As per family, patient had new glucometer at home but did not properly use it so was not able to document glucose level accurately. As a result, patient became severely hyperglycemia wit h no suspicion. Patient denies any acute complaints except for generalized pain. 12-point ROS was unattainable due to patient's mental status. PMH: as mentioned above PSH: back surgery in 1964, statsu post lumbar laminectomy and fusion. Patient also has history of cholecystectomy, hysterectomy, and bilateral salpingo- oopherectomy. Allergies: aspirin, benadryl, stelazine, cortisone Social Hx: no history of tobacco or alcohol use. PMD: Socrates Padilla (Information obtained above is partially from previous notes due to patient's AMS) Review of Systems - Review of Systems Systems not reviewed;Unavailable: Altered Mental Status - Constitutional Constitutional: absent: Chills, Fever, Headache - EENT Eyes: absent: Blurred Vision Ears: absent: Decreased Hearing - Cardiovascular Cardiovascular: absent: Chest Pain - Respiratory Respiratory: absent: Dyspnea - Gastrointestinal Gastrointestinal: absent: Abdominal Pain, Constipation, Diarrhea, Nausea, Vomiting - Genitourinary Genitourinary: absent: Dysuria, Hematuria - Musculoskeletal Musculoskeletal: Arthralgias - Neurological Neurological: absent: Numbness, Tingling, Tremor Past Patient History - Infectious Disease Hx of Infectious Diseases: None - Tetanus Immunizations Tetanus Immunization: Unknown - Past Social History Smoking Status: Never Smoked - CARDIAC Hx Cardiac Disorders: Yes Hx Hypertension: Yes - PULMONARY Hx Chronic Obstructive Pulmonary Disease (COPD): Yes - NEUROLOGICAL HX Cerebrovascular Accident: Yes (left sided weakness, 1979) - HEENT Hx HEENT Problems: Yes (eyeglasses) Hx Blind: Yes (patient reports she is legally blind) - RENAL Hx Renal Failure: No - ENDOCRINE/METABOLIC Hx Diabetes Mellitus Type 1: Yes (dx at 11 yrs old) - HEMATOLOGICAL/ONCOLOGICAL Hx Blood Disorders: No Hx Cancer: No - INTEGUMENTARY Other/Comment: multiple skin discolorations rle - MUSCULOSKELETAL/RHEUMATOLOGICAL Hx Musculoskeletal Disorders: (left side weakness) Hx Back Pain: Yes Hx Falls: No Hx Unsteady Gait: Yes (walker) - GASTROINTESTINAL Hx Gastrointestinal Disorders: No - GENITOURINARY/GYNECOLOGICAL Hx Genitourinary Disorders: No - PSYCHIATRIC Hx Psychophysiologic Disorder: Yes Hx Depression: Yes Hx Substance Use: No Other/Comment: no hx of bipolar or schizophrenia as per pt - SURGICAL HISTORY Hx Cholecystectomy: Yes Hx Hysterectomy: Yes Hx Orthopedic Surgery: Yes (NECK, L LEG,BACK) Other/Comment: cervical spine sx in pt uncertain what type of sx she had done, lower back sx insertion of rods - ANESTHESIA Hx Anesthesia: Yes Hx Anesthesia Reactions: No Hx Malignant Hyperthermia: No Meds Allergies/Adverse Reactions: Allergies Allergy/AdvReac Type Severity Reaction Status Date / Time aspirin Allergy ANAPHYLAXIS Verified 06/30/17 21:34 diphenhydramine HCl Allergy ANAPHYLAXIS Verified 06/30/17 21:34 [From Benadryl] trifluoperazine Allergy ANAPHYLAXIS Verified 06/30/17 21:34 - Medications Medications: Current Medications Insulin Human Regular 100 (units/ Sodium Chloride) 100 mls @ 12 mls/hr IV .Q8H20M PRN; Protocol PRN Reason: TITRATE PER MD ORDER Physical Exam - Constitutional Appears: Unkempt, Confused - Head Exam Head Exam: ATRAUMATIC, NORMAL INSPECTION, NORMOCEPHALIC - Eye Exam Eye Exam: EOMI, PERRL - ENT Exam ENT Exam: Mucous Membranes Dry Additional comments: kussmaul respirations at bedside, chapped lips - Respiratory Exam Respiratory Exam: Clear to Auscultation Bilateral, NORMAL BREATHING PATTERN - Cardiovascular Exam Cardiovascular Exam: Tachycardia, REGULAR RHYTHM - GI/Abdominal Exam GI & Abdominal Exam: Firm, Hypoactive Bowel Sounds. absent: Distended, Guarding - Extremities Exam Extremities exam: Positive for: normal capillary refill, normal inspection, pedal pulses present. Negative for: pedal edema, tenderness Additional comments: all 4 extremities are cool. unable to access ROM due to patient's mental status - Back Exam Back exam: NORMAL INSPECTION - Neurological Exam Neurological exam: Alert, CN II-XII Intact (grossly) - Psychiatric Exam Psychiatric exam: Agitated Results - Vital Signs Recent Vital Signs: Last Vital Signs Temp Pulse 102 H 03/30/18 13:43 Resp 18 03/30/18 13:43 BP 141/68 03/30/18 13:43 Pulse Ox 100 03/30/18 13:43 - Labs Result Diagrams: 03/30/18 10:25 03/30/18 12:59 Labs: Laboratory Results - last 24 hr 03/30/18 03/30/18 03/30/18 09:54 10:25 10:25 WBC 8.2 D RBC 4.31 Hgb 12.7 Hct 38.2 MCV 88.6 MCH 29.5 MCHC 33.2 RDW 13.0 Plt Count 222 MPV 10.4 Gran % 61.6 Lymph % (Auto) 30.6 Mitchell % (Auto) 4.8 Eos % (Auto) 2.4 Baso % (Auto) 0.6 Gran # 5.04 Lymph # (Auto) 2.5 Mitchell # (Auto) 0.4 Eos # (Auto) 0.2 Baso # (Auto) 0.05 PT INR APTT pO2 80 H VBG pH 7.13 L* VBG pCO2 37.0 L VBG HCO3 12.3 L VBG Total CO2 13.4 L VBG O2 Sat (Calc) 97.1 H VBG Base Excess -16.1 L VBG Potassium 7.0 H* Sodium 128.0 L Chloride 95.0 L Glucose 589 H* Lactate 1.9 FiO2 21.0 Potassium Carbon Dioxide Anion Gap BUN Creatinine Est GFR ( Amer) Est GFR (Non-Af Amer) POC Glucose (mg/dL) 468 H* Random Glucose Serum Osmolality Calcium Magnesium Total Bilirubin AST ALT Alkaline Phosphatase Lactate Dehydrogenase Total Creatine Kinase Troponin I Total Protein Albumin Globulin Albumin/Globulin Ratio Venous Blood Potassium 7.0 H* Urine Color Urine Appearance Urine pH Ur Specific [place] Urine Protein Urine Glucose (UA) Urine Ketones Urine Blood Urine Nitrate Urine Bilirubin Urine Urobilinogen Ur Leukocyte Esterase 03/30/18 03/30/18 03/30/18 10:25 11:53 12:59 WBC RBC Hgb Hct MCV MCH MCHC RDW Plt Count MPV Gran % Lymph % (Auto) Mitchell % (Auto) Eos % (Auto) Baso % (Auto) Gran # Lymph # (Auto) Mitchell # (Auto) Eos # (Auto) Baso # (Auto) PT 11.6 INR 1.01 APTT 29.1 pO2 VBG pH VBG pCO2 VBG HCO3 VBG Total CO2 VBG O2 Sat (Calc) VBG Base Excess VBG Potassium Sodium 134 Chloride 100 Glucose Lactate FiO2 Potassium 4.7 Carbon Dioxide 11 L Anion Gap 28 H BUN 29 H Creatinine 1.4 H Est GFR ( Amer) 46 Est GFR (Non-Af Amer) 38 POC Glucose (mg/dL) Random Glucose 553 H* D Serum Osmolality Calcium 8.9 Magnesium 2.3 H Total Bilirubin 0.7 AST 18 ALT 21 Alkaline Phosphatase 141 H D Lactate Dehydrogenase 492 Total Creatine Kinase 96 Troponin I < 0.01 Total Protein 7.7 Albumin 4.1 Globulin 3.6 Albumin/Globulin Ratio 1.1 Venous Blood Potassium Urine Color Yellow Urine Appearance Clear Urine pH 5.5 Ur Specific [place] 1.015 Urine Protein Negative Urine Glucose (UA) >=1000 Urine Ketones >=80 Urine Blood Negative Urine Nitrate Negative Urine Bilirubin Negative Urine Urobilinogen 0.2 Ur Leukocyte Esterase Negative 03/30/18 12:59 WBC RBC Hgb Hct MCV MCH MCHC RDW Plt Count MPV Gran % Lymph % (Auto) Mitchell % (Auto) Eos % (Auto) Baso % (Auto) Gran # Lymph # (Auto) Mitchell # (Auto) Eos # (Auto) Baso # (Auto) PT INR APTT pO2 VBG pH VBG pCO2 VBG HCO3 VBG Total CO2 VBG O2 Sat (Calc) VBG Base Excess VBG Potassium Sodium Chloride Glucose Lactate FiO2 Potassium Carbon Dioxide Anion Gap BUN Creatinine Est GFR ( Amer) Est GFR (Non-Af Amer) POC Glucose (mg/dL) Random Glucose Serum Osmolality 323 H Calcium Magnesium Total Bilirubin AST ALT Alkaline Phosphatase Lactate Dehydrogenase Total Creatine Kinase Troponin I Total Protein Albumin Globulin Albumin/Globulin Ratio Venous Blood Potassium Urine Color Urine Appearance Urine pH Ur Specific [place] Urine Protein Urine Glucose (UA) Urine Ketones Urine Blood Urine Nitrate Urine Bilirubin Urine Urobilinogen Ur Leukocyte Esterase Assessment & Plan - Assessment and Plan (Free Text) Assessment: 63 year old female with past medical history of type 1 Diabetes with recurrent admission for DKA, HTN, hypertensive cardiovascular disease, hypertension, CHF, COPD, history of CVA with no residual deficits, bipolar disorder, schizophrenia presents by EMS because of lethargy as per family at bedside. Family called EMS when patient complained of lethargy. Patient is AAOx1 being only oriented to person but not place or time. In ED, patient was found to have glucose of 553 with anion gap of 23 and >80 ketones on her UA. Plan: Neuro: -AAOx1. Baseline mental status derived from previous notes is better. -Altered mental status likely due to increased ketones and metabolic acidosis. -Reorient patient as necessary. Cardio: -Tachycardia, mildly hypertensive at 141/68, no signs of HD compromise -EKG: NSR at HR: 90 -Patient has history of CHF with last echocardiogram in 2017 showing EF of 71%. -Troponin<0.01 -Pro-BNP ordered. Patient is receiving fluid. Want to monitor fluid status. -Maintain MAP>65. -Monitor for S/S, HD compromise. Pulm: -Patient currently has kussmaul respirations. CTA B/L -Patient is stating well on room air. -Maintain O2 saturation>95%. -O2 NC PRN -CXR: no active pulmonary disease -Elevate bed to 30 degrees GI: -Start diabetic diet at 19:00. -Protonix 40 mg IV daily. /Nephro: -BUN/Cr increased at 29/1.4. Baseline creatinine is 1 from 06/2017 -UA: more than 1000 glucose, more than 80 ketones, negative LE, negative nitrates -Potassium: 4.7. 20 mEq given to replete potassium to 5.3. Keep potassium above 5.3 until anion gap closes. -Magnesium: 2.3. Continue to monitor. -Continue monitoring. -Replete electrolytes as needed. -Maintain I and Os -Daily weights -Maintain euvolemia. Endocrinology: -Random glucose: 556 -3 L NS given. Continue with 0.15 U/kg/hr of insulin with NS -Switch fluids to D5 1/2 NS when glucose<250 -Once glucose<180, anion gap has closed, and pH is close to normal, patient should be transitioned to SC sliding scale insulin with 1 hour of overlap with IV drip insulin. -Monitor potassium and bicarbonate level. Monitor VBG pH. Replete potassium is less than 5.3. Replete bicarbonate level if pH is less than 6.9. -Serum osmolarity: 323 -Beta hydroxybuterate level ordered. -Continue to monitor BMP Q4, VBG Q4, fingerstick glucose Q1. Heme/Onc: -H/H stable at 12.7/38.2 -No signs of HD compromise. -Continue monitoring H/H ID: -Afebrile, no leukocytosis. -Doubt infectious process as cause for DKA. Likely due to medication noncom pliance. -Follow up BCx, UCx, MRSA -Lactate: 1.9 -Monitor for signs and symptoms of infection. DVT prophylaxis: heparin 5000 U Q8 GI prophylaxis: protonix 40 mg IV Patient seen and examined with Dr. Trujillo. - Date & Time Date: 03/30/18 Time: 14:54 <Kenan Trujillo - Last Filed: 03/31/18 13:16> Meds - Medications Medications: Current Medications Atorvastatin Calcium (Lipitor) 20 mg PO DAILY [facility] Last Admin: 03/31/18 09:59 Dose: 20 mg Benzonatate (Tessalon Perles) 100 mg PO Q6H PRN PRN Reason: Cough Last Admin: 03/31/18 09:57 Dose: 100 mg Carvedilol (Coreg) 25 mg PO BID [facility] Last Admin: 03/31/18 10:14 Dose: 25 mg Clopidogrel Bisulfate (Plavix) 75 mg PO DAILY [facility] Last Admin: 03/31/18 09:58 Dose: 75 mg Dextrose (Dextrose 50% Inj) 0 ml IV STAT PRN; Protocol PRN Reason: Hypoglycemia Protocol Gabapentin (Neurontin) 100 mg PO TID [facility]; Protocol Last Admin: 03/31/18 09:59 Dose: 100 mg Heparin Sodium (Porcine) (Heparin) 5,000 units SC Q8 [facility] Last Admin: 03/31/18 05:48 Dose: 5,000 units Dextrose (Dextrose 5% In Water 1000 Ml) 1,000 mls @ 0 mls/hr IV .Q0M PRN; Protocol PRN Reason: Hypoglycemia Protocol Dextrose/Sodium Chloride (Dextrose 5%/0.45% Ns 1000 Ml) 1,000 mls @ 150 mls/hr IV .Q6H40M [facility] Last Admin: 03/31/18 05:54 Dose: 150 mls/hr Sodium Chloride (Sodium Chloride 0.9%) 1,000 mls @ 100 mls/hr IV .Q10H STA Stop: 03/31/18 19:19 Insulin Human Lispro (Humalog Med) 0 units SC ACHS LELIA; Protocol Last Admin: 03/31/18 08:43 Dose: 3 u Losartan Potassium (Cozaar) 50 mg PO DAILY [facility] Last Admin: 03/31/18 09:51 Dose: 50 mg Pantoprazole Sodium (Protonix Ec Tab) 40 mg PO ACB LELIA Topiramate (Topamax) 150 mg PO HS LELIA; Protocol Venlafaxine HCl (Effexor Xr) 75 mg PO TID [facility] Last Admin: 03/31/18 10:01 Dose: 75 mg Results - Vital Signs Recent Vital Signs: Last Vital Signs Temp 99.2 F 03/31/18 04:00 Pulse 93 H 03/31/18 10:14 Resp 21 03/31/18 07:50 BP 124/66 03/31/18 10:14 Pulse Ox 100 03/31/18 07:50 - Labs Result Diagrams: 03/31/18 04:15 03/31/18 11:45 Labs: Laboratory Results - last 24 hr 03/30/18 03/30/18 03/30/18 12:59 12:59 13:37 WBC RBC Hgb Hct MCV MCH MCHC RDW Plt Count MPV Gran % Lymph % (Auto) Mitchell % (Auto) Eos % (Auto) Baso % (Auto) Gran # Lymph # (Auto) Mitchell # (Auto) Eos # (Auto) Baso # (Auto) APTT pO2 VBG pH VBG pCO2 VBG HCO3 VBG Total CO2 VBG O2 Sat (Calc) VBG Base Excess VBG Potassium Glucose Lactate FiO2 Sodium 134 Potassium 4.7 Chloride 100 Carbon Dioxide 11 L Anion Gap 28 H BUN 29 H Creatinine 1.4 H Est GFR ( Amer) 46 Est GFR (Non-Af Amer) 38 POC Glucose (mg/dL) > 500 H* Random Glucose 553 H* D Serum Osmolality 323 H Calcium 8.9 Phosphorus Magnesium 2.3 H Total Bilirubin 0.7 AST 18 ALT 21 Alkaline Phosphatase 141 H D Lactate Dehydrogenase 492 Total Creatine Kinase 96 Troponin I < 0.01 NT-Pro-B Natriuret Pep Total Protein 7.7 Albumin 4.1 Globulin 3.6 Albumin/Globulin Ratio 1.1 Venous Blood Potassium B-Hydroxybutyrate 8.31 H 03/30/18 03/30/18 03/30/18 15:17 16:08 16:15 WBC RBC Hgb Hct MCV MCH MCHC RDW Plt Count MPV Gran % Lymph % (Auto) Mitchell % (Auto) Eos % (Auto) Baso % (Auto) Gran # Lymph # (Auto) Mitchell # (Auto) Eos # (Auto) Baso # (Auto) APTT 23.4 L pO2 VBG pH VBG pCO2 VBG HCO3 VBG Total CO2 VBG O2 Sat (Calc) VBG Base Excess VBG Potassium Glucose Lactate FiO2 Sodium Potassium Chloride Carbon Dioxide Anion Gap BUN Creatinine Est GFR ( Amer) Est GFR (Non-Af Amer) POC Glucose (mg/dL) 434 H* 434 H* Random Glucose Serum Osmolality Calcium Phosphorus Magnesium Total Bilirubin AST ALT Alkaline Phosphatase Lactate Dehydrogenase Total Creatine Kinase Troponin I NT-Pro-B Natriuret Pep Total Protein Albumin Globulin Albumin/Globulin Ratio Venous Blood Potassium B-Hydroxybutyrate 03/30/18 03/30/18 03/30/18 16:15 16:15 16:57 WBC RBC Hgb Hct MCV MCH MCHC RDW Plt Count MPV Gran % Lymph % (Auto) Mitchell % (Auto) Eos % (Auto) Baso % (Auto) Gran # Lymph # (Auto) Mitchell # (Auto) Eos # (Auto) Baso # (Auto) APTT pO2 37 VBG pH 7.10 L* VBG pCO2 34.0 L VBG HCO3 10.6 L VBG Total CO2 11.6 L VBG O2 Sat (Calc) 66.9 H VBG Base Excess -18.1 L VBG Potassium 4.5 Glucose 433 H* D Lactate 1.8 FiO2 21.0 Sodium 139 139.0 Potassium 4.6 Chloride 108 H 104.0 Carbon Dioxide 10 L Anion Gap 25 H BUN 26 H Creatinine 1.2 Est GFR ( Amer) 55 Est GFR (Non-Af Amer) 45 POC Glucose (mg/dL) 359 H Random Glucose 417 H* D Serum Osmolality Calcium 8.5 Phosphorus 4.1 Magnesium 2.2 Total Bilirubin AST ALT Alkaline Phosphatase Lactate Dehydrogenase Total Creatine Kinase Troponin I NT-Pro-B Natriuret Pep 71.9 Total Protein Albumin Globulin Albumin/Globulin Ratio Venous Blood Potassium 4.5 B-Hydroxybutyrate 03/30/18 03/30/18 03/30/18 17:46 19:01 20:00 WBC RBC Hgb Hct MCV MCH MCHC RDW Plt Count MPV Gran % Lymph % (Auto) Mitchell % (Auto) Eos % (Auto) Baso % (Auto) Gran # Lymph # (Auto) Mitchell # (Auto) Eos # (Auto) Baso # (Auto) APTT pO2 VBG pH VBG pCO2 VBG HCO3 VBG Total CO2 VBG O2 Sat (Calc) VBG Base Excess VBG Potassium Glucose Lactate FiO2 Sodium 140 Potassium 4.7 Chloride 109 H Carbon Dioxide 15 L Anion Gap 21 H BUN 27 H Creatinine 1.2 Est GFR ( Amer) 55 Est GFR (Non-Af Amer) 45 POC Glucose (mg/dL) 300 H 255 H Random Glucose 196 H Serum Osmolality Calcium 9.1 Phosphorus 3.7 Magnesium 2.3 H Total Bilirubin AST ALT Alkaline Phosphatase Lactate Dehydrogenase Total Creatine Kinase Troponin I NT-Pro-B Natriuret Pep Total Protein Albumin Globulin Albumin/Globulin Ratio Venous Blood Potassium B-Hydroxybutyrate 03/30/18 03/30/18 03/30/18 20:00 20:02 20:52 WBC RBC Hgb Hct MCV MCH MCHC RDW Plt Count MPV Gran % Lymph % (Auto) Mitchell % (Auto) Eos % (Auto) Baso % (Auto) Gran # Lymph # (Auto) Mitchell # (Auto) Eos # (Auto) Baso # (Auto) APTT pO2 30 VBG pH 7.16 L* VBG pCO2 43.0 VBG HCO3 15.3 L VBG Total CO2 16.6 L VBG O2 Sat (Calc) 58.3 VBG Base Excess -13.0 L VBG Potassium 4.8 Glucose 200 H Lactate 1.3 FiO2 21.0 Sodium 139.0 Potassium Chloride 108.0 H Carbon Dioxide Anion Gap BUN Creatinine Est GFR ( Amer) Est GFR (Non-Af Amer) POC Glucose (mg/dL) 179 H 177 H Random Glucose Serum Osmolality Calcium Phosphorus Magnesium Total Bilirubin AST ALT Alkaline Phosphatase Lactate Dehydrogenase Total Creatine Kinase Troponin I NT-Pro-B Natriuret Pep Total Protein Albumin Globulin Albumin/Globulin Ratio Venous Blood Potassium 4.8 B-Hydroxybutyrate 03/30/18 03/30/18 03/30/18 22:00 22:51 23:55 WBC RBC Hgb Hct MCV MCH MCHC RDW Plt Count MPV Gran % Lymph % (Auto) Mitchell % (Auto) Eos % (Auto) Baso % (Auto) Gran # Lymph # (Auto) Mitchell # (Auto) Eos # (Auto) Baso # (Auto) APTT pO2 VBG pH VBG pCO2 VBG HCO3 VBG Total CO2 VBG O2 Sat (Calc) VBG Base Excess VBG Potassium Glucose Lactate FiO2 Sodium Potassium Chloride Carbon Dioxide Anion Gap BUN Creatinine Est GFR ( Amer) Est GFR (Non-Af Amer) POC Glucose (mg/dL) 156 H 233 H 197 H Random Glucose Serum Osmolality Calcium Phosphorus Magnesium Total Bilirubin AST ALT Alkaline Phosphatase Lactate Dehydrogenase Total Creatine Kinase Troponin I NT-Pro-B Natriuret Pep Total Protein Albumin Globulin Albumin/Globulin Ratio Venous Blood Potassium B-Hydroxybutyrate 03/31/18 03/31/18 03/31/18 00:53 01:20 01:56 WBC RBC Hgb Hct MCV MCH MCHC RDW Plt Count MPV Gran % Lymph % (Auto) Mitchell % (Auto) Eos % (Auto) Baso % (Auto) Gran # Lymph # (Auto) Mitchell # (Auto) Eos # (Auto) Baso # (Auto) APTT pO2 VBG pH VBG pCO2 VBG HCO3 VBG Total CO2 VBG O2 Sat (Calc) VBG Base Excess VBG Potassium Glucose Lactate FiO2 Sodium 139 Potassium 4.4 Chloride 109 H Carbon Dioxide 19 L Anion Gap 16 BUN 24 H Creatinine 1.2 Est GFR ( Amer) 55 Est GFR (Non-Af Amer) 45 POC Glucose (mg/dL) 195 H 189 H Random Glucose 193 H Serum Osmolality Calcium 8.7 Phosphorus 3.1 Magnesium 2.2 Total Bilirubin AST ALT Alkaline Phosphatase Lactate Dehydrogenase Total Creatine Kinase Troponin I NT-Pro-B Natriuret Pep Total Protein Albumin Globulin Albumin/Globulin Ratio Venous Blood Potassium B-Hydroxybutyrate 03/31/18 03/31/18 03/31/18 04:03 04:15 04:15 WBC 5.9 D RBC 3.99 Hgb 11.5 L Hct 34.6 L MCV 86.7 MCH 28.8 MCHC 33.2 RDW 13.2 Plt Count 211 MPV 9.7 Gran % 59.0 Lymph % (Auto) 30.3 Mitchell % (Auto) 6.9 H Eos % (Auto) 3.6 Baso % (Auto) 0.2 Gran # 3.49 Lymph # (Auto) 1.8 Mitchell # (Auto) 0.4 Eos # (Auto) 0.2 Baso # (Auto) 0.01 APTT pO2 VBG pH VBG pCO2 VBG HCO3 VBG Total CO2 VBG O2 Sat (Calc) VBG Base Excess VBG Potassium Glucose Lactate FiO2 Sodium 137 Potassium 4.0 Chloride 109 H Carbon Dioxide 19 L Anion Gap 13 BUN 23 H Creatinine 1.0 Est GFR ( Amer) > 60 Est GFR (Non-Af Amer) 56 POC Glucose (mg/dL) 213 H Random Glucose 201 H Serum Osmolality Calcium 8.4 Phosphorus 2.6 Magnesium 2.1 Total Bilirubin 0.5 AST 30 ALT 22 Alkaline Phosphatase 114 Lactate Dehydrogenase Total Creatine Kinase Troponin I NT-Pro-B Natriuret Pep Total Protein 7.4 Albumin 3.8 Globulin 3.6 Albumin/Globulin Ratio 1.1 Venous Blood Potassium B-Hydroxybutyrate 03/31/18 03/31/18 03/31/18 05:02 05:56 06:52 WBC RBC Hgb Hct MCV MCH MCHC RDW Plt Count MPV Gran % Lymph % (Auto) Mitchell % (Auto) Eos % (Auto) Baso % (Auto) Gran # Lymph # (Auto) Mitchell # (Auto) Eos # (Auto) Baso # (Auto) APTT pO2 VBG pH VBG pCO2 VBG HCO3 VBG Total CO2 VBG O2 Sat (Calc) VBG Base Excess VBG Potassium Glucose Lactate FiO2 Sodium Potassium Chloride Carbon Dioxide Anion Gap BUN Creatinine Est GFR ( Amer) Est GFR (Non-Af Amer) POC Glucose (mg/dL) 228 H 212 H 231 H Random Glucose Serum Osmolality Calcium Phosphorus Magnesium Total Bilirubin AST ALT Alkaline Phosphatase Lactate Dehydrogenase Total Creatine Kinase Troponin I NT-Pro-B Natriuret Pep Total Protein Albumin Globulin Albumin/Globulin Ratio Venous Blood Potassium B-Hydroxybutyrate 03/31/18 03/31/18 03/31/18 08:00 08:00 11:31 WBC RBC Hgb Hct MCV MCH MCHC RDW Plt Count MPV Gran % Lymph % (Auto) Mitchell % (Auto) Eos % (Auto) Baso % (Auto) Gran # Lymph # (Auto) Mitchell # (Auto) Eos # (Auto) Baso # (Auto) APTT pO2 30 VBG pH 7.22 L VBG pCO2 48.0 VBG HCO3 19.6 L VBG Total CO2 VBG O2 Sat (Calc) 63.5 VBG Base Excess -8.2 L VBG Potassium Glucose Lactate FiO2 Sodium 136 Potassium 4.6 Chloride 106 Carbon Dioxide 19 L Anion Gap 15 BUN 20 Creatinine 1.0 Est GFR ( Amer) > 60 Est GFR (Non-Af Amer) 56 POC Glucose (mg/dL) 280 H Random Glucose 288 H Serum Osmolality Calcium 8.7 Phosphorus 2.6 Magnesium 2.1 Total Bilirubin AST ALT Alkaline Phosphatase Lactate Dehydrogenase Total Creatine Kinase Troponin I NT-Pro-B Natriuret Pep Total Protein Albumin Globulin Albumin/Globulin Ratio Venous Blood Potassium B-Hydroxybutyrate 03/31/18 11:45 WBC RBC Hgb Hct MCV MCH MCHC RDW Plt Count MPV Gran % Lymph % (Auto) Mitchell % (Auto) Eos % (Auto) Baso % (Auto) Gran # Lymph # (Auto) Mitchell # (Auto) Eos # (Auto) Baso # (Auto) APTT pO2 VBG pH VBG pCO2 VBG HCO3 VBG Total CO2 VBG O2 Sat (Calc) VBG Base Excess VBG Potassium Glucose Lactate FiO2 Sodium 136 Potassium 4.5 Chloride 107 Carbon Dioxide 18 L Anion Gap 15 BUN 17 Creatinine 1.0 Est GFR ( Amer) > 60 Est GFR (Non-Af Amer) 56 POC Glucose (mg/dL) Random Glucose 291 H Serum Osmolality Calcium 8.2 L Phosphorus 2.1 L Magnesium 2.0 Total Bilirubin AST ALT Alkaline Phosphatase Lactate Dehydrogenase Total Creatine Kinase Troponin I NT-Pro-B Natriuret Pep Total Protein Albumin Globulin Albumin/Globulin Ratio Venous Blood Potassium B-Hydroxybutyrate Addendum Addendum: 03/30/18 16:13 MICU Attending Addendum for 03/30/18 Patient seen and examined with resident in the ED on 03/30/18 Agree with his note above maggy the following additions/exceptions: 63F admitted to ICU for Diabetic Ketoacidosis # Diagnostics - Metabolic Anion gap acidosis -pH 7.1 -HCO3 10 # Trigger Assessment no concerns of infections or cardiac ischemia Plan: - Transfer to ICU - Cont Insulin drip starting at 0.1 units/kg/hour - Ensure hypoglycemia protocol is ordered Fluids: Given 3 L bolus NS within the first hour Given 1 L over the following hour Reassess volume status and continue fluids as IV NS @ 250 cc / hour (caution for signs of hypervolemia or hyperchloremia which can cause hyperchloremic metabolic acidosis) Once fingerstick glucose is 250, switch fluids to IV D5 1/2 NS @ 200cc/hour while continuing insulin drip - BMP with mag/phos/calcium q4 hours until gap is closed - q-hour fingersticks while on insulin drip Electrolytes: Do Not start insulin drip if K < 3.3. Start with IVF and aggressive K replacement until K > 3.3 then begin insulin if K drops below 3.3 STOP Insulin drip and replace until > 3.3 if K between 3.3 - 4.2 add 40meq of K with each Liter of fluid if K 4.3 - 5.3 if 20meq of K with each liter of fluid Given K-Phos is Phos < 2 Bicarb only indicated if pH < 6.9 (then given 150meq and repeat chem and pH. Stop bicarb when pH > 7) Zofran PRN q 8 hours nausea Diet: Ok to eat when ready, diabetic diet DVT Pppx Kenan Trujillo MD Critical Care Attending CC time 30 mins
[2018-03-30] MEDS ORDERED: Dextrose 50% SYRINGE Inj (50 ml) IV PRN (15:10)
--- NOTE | 2018-03-30 15:49 | CARD ---
APPROVED REPORT Date of service: 03/30/2018 EKG Measurement [id number] <Conclusion> Normal sinus rhythm Possible Left atrial enlargement Borderline ECG
[2018-03-30 16:27] LABS: VENOUS BLOOD GAS BASE EXCESS -18.1 mmol/L (0.0-2.0); VENOUS BLOOD GAS PO2 37 mm/Hg (30-55)
[2018-03-30 16:48] LABS: B-TYPE NATRIURETIC PEPTIDE 71.9 pg/mL (0-450)
[2018-03-30 16:52] LABS: CALCIUM 8.5 mg/dL (8.4-10.5)
[2018-03-30 17:28] VITALS: BMI 32.5
[2018-03-30 20:11] LABS: VENOUS BLOOD GAS PO2 30 mm/Hg (30-55); VENOUS BLOOD PH 7.16 (7.32-7.43)
[2018-03-30 20:20] LABS: CALCIUM 9.1 mg/dL (8.4-10.5)
[2018-03-30] MEDS ORDERED: Dextrose 5%/0.45% NS 1,000 ML IV SCH (23:45)
[2018-03-31 02:08] LABS: CALCIUM 8.7 mg/dL (8.4-10.5)
[2018-03-31 04:41] LABS: BASO # 0.01 K/mm3 (0.0-2.0); BASO % 0.2 % (0.0-3.0); EOS # 0.2 (0.0-0.7); EOS % 3.6 % (1.5-5.0); GRAN # 3.49 (1.4-6.5); HEMOGLOBIN 11.5 g/dL (12.0-16.0); LYMPH # 1.8 (1.2-3.4); LYMPH % 30.3 % (22.0-35.0); MEAN CELL VOLUME 86.7 fl (80.0-105.0); MEAN CORPUSCULAR HEMOGLOBIN 28.8 pg (25.0-35.0); MEAN CORPUSCULAR HGB CONC 33.2 g/dl (31.0-37.0); MEAN PLATELET VOLUME 9.7 fl (7.0-11.0); MONO # 0.4 (0.1-0.6); MONO % 6.9 % (1.0-6.0); RBC 3.99 10^6/uL (3.5-6.1); RED CELL DISTRIBUTION WIDTH 13.2 % (11.5-14.5); WHITE BLOOD COUNT 5.9 10^3/ul (4.5-11.0)
[2018-03-31 04:53] LABS: ALB/GLOB RATIO 1.1 (1.1-1.8); ALBUMIN 3.8 g/dL (3.0-4.8); ALT/SGPT 22 U/L (7-56); AST/SGOT 30 U/L (14-36); BLOOD UREA NITROGEN 23 mg/dL (7-21); CALCIUM 8.4 mg/dL (8.4-10.5); GFR NON-AFRICAN AMERICAN 56
[2018-03-31] MEDS ORDERED: Insulin Detemir 100 units/ml Vial (Levemir) SC ONE (05:29)
[2018-03-31] MEDS ORDERED: Dextrose 5%/0.45% NS 1,000 ML IV SCH ×2 (05:37)
[2018-03-31] MEDS ORDERED: Insulin Lispro (humaLOG) MEDIUM Coverage SC SCH (07:30)
--- NOTE | 2018-03-31 08:07 | CP.CCUPN ---
<Maisha Mujica - Last Filed: 03/31/18 09:47> CCU Subjective - Physician Review Subjective (Free Text): Maisha Mujica, PGY-1, CCU Progress Note for Dr. Pacheco Patient seen and examined at bedside. Patient is AAOx1 today and not in acute distress. Patient today denies any complaints including headache, chest pain, heart palpitations, diaphoresis, nausea, vomiting, constipation, diarrhea, increase in thirst, abdominal pain, dysuria, and hematuria. 12-point ROS was incomplete due to patient's mental status. CCU Objective - Vital Signs / Intake & Output Vital Signs (Last 4 hours): Vital Signs Pulse Resp BP Pulse Ox 03/31/18 07:50 95 H 21 100 03/31/18 07:40 100 H 100 03/31/18 07:30 93 H 14 99 03/31/18 07:20 90 16 141/62 100 03/31/18 07:10 92 H 20 100 03/31/18 07:00 86 14 98 03/31/18 06:50 92 H 98 03/31/18 06:40 90 6 L 98 03/31/18 06:37 91 H 133/62 99 03/31/18 06:30 90 22 98 03/31/18 06:20 91 H 14 97 03/31/18 06:10 92 H 17 98 03/31/18 06:00 92 H 15 98 03/31/18 05:50 92 H 14 98 03/31/18 05:40 90 16 98 03/31/18 05:30 19 100 03/31/18 05:20 100 03/31/18 05:10 20 100 03/31/18 05:00 94 H 16 96 03/31/18 04:50 102 H 12 97 03/31/18 04:40 95 H 17 96 03/31/18 04:30 95 H 18 98 03/31/18 04:20 98 H 12 100 03/31/18 04:10 95 H 20 97 Intake and Output (Last 8hrs): Intake & Output 03/30/18 03/31/18 03/31/18 22:59 06:59 14:59 Intake Total 3055 1123 Output Total 1500 Balance 3055 -377 Weight 220 lb 220 lb Intake: IV 3055 1123 KCl 400 Left Upper arm 3000 Right Hand 30 d5 0.5ns 700 insulin 20 Oral 0 Output: Urine 1500 Urethral (Higgins) 1500 Other: Voiding Method Incontinent - Physical Exam Head: Positive for: Atraumatic, Normocephalic Pupils: Positive for: PERRL Extroacular Muscles: Positive for: EOMI Mouth: Positive for: Dry Respiratory/Chest: Positive for: Clear to Auscultation, Decreased Breath Sounds. Negative for: Respiratory Distress, Accessory Muscle Use, Wheezes Cardiovascular: Positive for: Regular Rate and Rhythm, Normal S1, S2. Negative for: Murmurs, Rub, Gallop Abdomen: Positive for: Normal Bowel Sounds. Negative for: Distention Neurological: Positive for: GCS=15, CN II-XII Intact, Speech Normal, Other (Pt is awake and alert but is confused and not oriented to place or self. Pt has difficulty following commands) Skin: Positive for: Warm, Dry, Normal Color. Negative for: Rashes Psychiatric: Positive for: Alert. Negative for: Oriented x 3 (oriented to person, but not place or time) - Medications Active Medications: Active Medications Generic Name Dose Route Start Last Admin Trade Name Freq PRN Reason Stop Dose Admin Atorvastatin Calcium 20 mg 03/31/18 10:00 Lipitor PO DAILY [facility] Benzonatate 100 mg 03/31/18 07:22 Tessalon Perles PO Q6H PRN Cough Carvedilol 25 mg 03/31/18 10:00 Coreg PO BID [facility] Clopidogrel Bisulfate 75 mg 03/31/18 10:00 Plavix PO DAILY [facility] Dextrose 0 ml 03/30/18 15:10 Dextrose 50% Inj IV STAT PRN Hypoglycemia Protocol Protocol Gabapentin 100 mg 03/31/18 10:00 Neurontin PO TID [facility] Protocol Heparin Sodium (Porcine) 5,000 units 03/30/18 22:00 03/31/18 05:48 Heparin SC 5,000 units Q8 [facility] Administration Dextrose 1,000 mls @ 0 mls/hr 03/30/18 15:10 Dextrose 5% In Water 1000 Ml IV .Q0M PRN Hypoglycemia Protocol Protocol Per Protocol Dextrose/Sodium Chloride 1,000 mls @ 150 mls/hr 03/31/18 05:37 03/31/18 05:54 Dextrose 5%/0.45% Ns 1000 Ml IV 150 mls/hr .Q6H40M [facility] Administration Potassium Chloride 10 meq in 100 mls @ 50 mls/hr 03/31/18 05:45 03/31/18 07:44 Potassium Chloride 10 Meq/100 Ml IVPB 03/31/18 09:44 50 mls/hr Q2H [facility] Administration Insulin Human Lispro 0 units 03/31/18 07:30 Humalog Med SC ACHS [facility] Protocol Losartan Potassium 50 mg 03/31/18 10:00 Cozaar PO DAILY [facility] Pantoprazole Sodium 40 mg 03/31/18 10:00 Protonix Inj IVP DAILY [facility] Topiramate 150 mg 03/31/18 22:00 Topamax PO HS [facility] Protocol Venlafaxine HCl 75 mg 03/31/18 10:00 Effexor Xr PO TID [facility] - Patient Studies Lab Studies: Lab Studies 03/31/18 03/31/18 03/31/18 Range/Units 04:15 04:15 01:20 WBC 5.9 D (4.5-11.0) 10^3/ul RBC 3.99 (3.5-6.1) 10^6/uL Hgb 11.5 L (12.0-16.0) g/dL Hct 34.6 L (36.0-48.0) % MCV 86.7 (80.0-105.0) fl MCH 28.8 (25.0-35.0) pg MCHC 33.2 (31.0-37.0) g/dl RDW 13.2 (11.5-14.5) % Plt Count 211 (120.0-450.0) 10^3/uL MPV 9.7 (7.0-11.0) fl Gran % 59.0 (50.0-68.0) % Lymph % (Auto) 30.3 (22.0-35.0) % [place] % (Auto) 6.9 H (1.0-6.0) % Eos % (Auto) 3.6 (1.5-5.0) % Baso % (Auto) 0.2 (0.0-3.0) % Gran # 3.49 (1.4-6.5) Lymph # (Auto) 1.8 (1.2-3.4) [place] # (Auto) 0.4 (0.1-0.6) Eos # (Auto) 0.2 (0.0-0.7) Baso # (Auto) 0.01 (0.0-2.0) K/mm3 PT (9.4-12.5) SECONDS INR APTT (25.1-36.5) Seconds pO2 (30-55) mm/Hg VBG pH (7.32-7.43) VBG pCO2 (40-60) VBG HCO3 (21-28) mmol/l VBG Total CO2 (22-28) mmol.L VBG O2 Sat (Calc) (40-65) % VBG Base Excess (0.0-2.0) mmol/L VBG Potassium (3.6-5.2) mmol/L Sodium 137 139 (132-148) mmol/L Chloride 109 H 109 H (98-107) mmol/L Glucose (65-105) mg/dl Lactate (0.7-2.1) mmol/L FiO2 % Potassium 4.0 4.4 (3.6-5.0) mmol/L Carbon Dioxide 19 L 19 L (21-33) mmol/L Anion Gap 13 16 (10-20) BUN 23 H 24 H (7-21) mg/dL Creatinine 1.0 1.2 (0.7-1.2) mg/dl Est GFR ( Amer) > 60 55 Est GFR (Non-Af Amer) 56 45 POC Glucose (mg/dL) (65-110) mg/dL Random Glucose 201 H 193 H (70-110) mg/dL Serum Osmolality (272-300) mosm/kg Calcium 8.4 8.7 (8.4-10.5) mg/dL Phosphorus 2.6 3.1 (2.5-4.5) mg/dL Magnesium 2.1 2.2 (1.7-2.2) mg/dL Total Bilirubin 0.5 (0.2-1.3) mg/dL AST 30 (14-36) U/L ALT 22 (7-56) U/L Alkaline Phosphatase 114 (38-126) U/L Lactate Dehydrogenase (333-699) U/L Total Creatine Kinase (35-230) U/L Troponin I ng/mL NT-Pro-B Natriuret Pep (0-450) pg/mL Total Protein 7.4 (5.8-8.3) g/dL Albumin 3.8 (3.0-4.8) g/dL Globulin 3.6 gm/dL Albumin/Globulin Ratio 1.1 (1.1-1.8) Venous Blood Potassium (3.6-5.2) mmol/L Urine Color (YELLOW) Urine Appearance (CLEAR) Urine pH (4.7-8.0) Ur Specific [place] (1.005-1.035) Urine Protein (<30 mg/dL) mg/dL Urine Glucose (UA) (NEGATIVE) mg/dL Urine Ketones (NEGATIVE) mg/dL Urine Blood (NEGATIVE) Urine Nitrate (NEGATIVE) Urine Bilirubin (NEGATIVE) Urine Urobilinogen (<1 E.U./dL) E.U./dL Ur Leukocyte Esterase (NEGATIVE) Kiel/uL B-Hydroxybutyrate (0.02-0.27) mM 03/30/18 03/30/18 03/30/18 Range/Units 20:00 20:00 16:15 WBC (4.5-11.0) 10^3/ul RBC (3.5-6.1) 10^6/uL Hgb (12.0-16.0) g/dL Hct (36.0-48.0) % MCV (80.0-105.0) fl MCH (25.0-35.0) pg MCHC (31.0-37.0) g/dl RDW (11.5-14.5) % Plt Count (120.0-450.0) 10^3/uL MPV (7.0-11.0) fl Gran % (50.0-68.0) % Lymph % (Auto) (22.0-35.0) % [place] % (Auto) (1.0-6.0) % Eos % (Auto) (1.5-5.0) % Baso % (Auto) (0.0-3.0) % Gran # (1.4-6.5) Lymph # (Auto) (1.2-3.4) [place] # (Auto) (0.1-0.6) Eos # (Auto) (0.0-0.7) Baso # (Auto) (0.0-2.0) K/mm3 PT (9.4-12.5) SECONDS INR APTT (25.1-36.5) Seconds pO2 30 37 (30-55) mm/Hg VBG pH 7.16 L* 7.10 L* (7.32-7.43) VBG pCO2 43.0 34.0 L (40-60) VBG HCO3 15.3 L 10.6 L (21-28) mmol/l VBG Total CO2 16.6 L 11.6 L (22-28) mmol.L VBG O2 Sat (Calc) 58.3 66.9 H (40-65) % VBG Base Excess -13.0 L -18.1 L (0.0-2.0) mmol/L VBG Potassium 4.8 4.5 (3.6-5.2) mmol/L Sodium 139.0 140 139.0 (132-148) mmol/L Chloride 108.0 H 109 H 104.0 (98-107) mmol/L Glucose 200 H 433 H* D (65-105) mg/dl Lactate 1.3 1.8 (0.7-2.1) mmol/L FiO2 21.0 21.0 % Potassium 4.7 (3.6-5.0) mmol/L Carbon Dioxide 15 L (21-33) mmol/L Anion Gap 21 H (10-20) BUN 27 H (7-21) mg/dL Creatinine 1.2 (0.7-1.2) mg/dl Est GFR ( Amer) 55 Est GFR (Non-Af Amer) 45 POC Glucose (mg/dL) (65-110) mg/dL Random Glucose 196 H (70-110) mg/dL Serum Osmolality (272-300) mosm/kg Calcium 9.1 (8.4-10.5) mg/dL Phosphorus 3.7 (2.5-4.5) mg/dL Magnesium 2.3 H (1.7-2.2) mg/dL Total Bilirubin (0.2-1.3) mg/dL AST (14-36) U/L ALT (7-56) U/L Alkaline Phosphatase (38-126) U/L Lactate Dehydrogenase (333-699) U/L Total Creatine Kinase (35-230) U/L Troponin I ng/mL NT-Pro-B Natriuret Pep (0-450) pg/mL Total Protein (5.8-8.3) g/dL Albumin (3.0-4.8) g/dL Globulin gm/dL Albumin/Globulin Ratio (1.1-1.8) Venous Blood Potassium 4.8 4.5 (3.6-5.2) mmol/L Urine Color (YELLOW) Urine Appearance (CLEAR) Urine pH (4.7-8.0) Ur Specific [place] (1.005-1.035) Urine Protein (<30 mg/dL) mg/dL Urine Glucose (UA) (NEGATIVE) mg/dL Urine Ketones (NEGATIVE) mg/dL Urine Blood (NEGATIVE) Urine Nitrate (NEGATIVE) Urine Bilirubin (NEGATIVE) Urine Urobilinogen (<1 E.U./dL) E.U./dL Ur Leukocyte Esterase (NEGATIVE) Kiel/uL B-Hydroxybutyrate (0.02-0.27) mM 03/30/18 03/30/18 03/30/18 Range/Units 16:15 16:15 16:08 WBC (4.5-11.0) 10^3/ul RBC (3.5-6.1) 10^6/uL Hgb (12.0-16.0) g/dL Hct (36.0-48.0) % MCV (80.0-105.0) fl MCH (25.0-35.0) pg MCHC (31.0-37.0) g/dl RDW (11.5-14.5) % Plt Count (120.0-450.0) 10^3/uL MPV (7.0-11.0) fl Gran % (50.0-68.0) % Lymph % (Auto) (22.0-35.0) % [place] % (Auto) (1.0-6.0) % Eos % (Auto) (1.5-5.0) % Baso % (Auto) (0.0-3.0) % Gran # (1.4-6.5) Lymph # (Auto) (1.2-3.4) [place] # (Auto) (0.1-0.6) Eos # (Auto) (0.0-0.7) Baso # (Auto) (0.0-2.0) K/mm3 PT (9.4-12.5) SECONDS INR APTT 23.4 L (25.1-36.5) Seconds pO2 (30-55) mm/Hg VBG pH (7.32-7.43) VBG pCO2 (40-60) VBG HCO3 (21-28) mmol/l VBG Total CO2 (22-28) mmol.L VBG O2 Sat (Calc) (40-65) % VBG Base Excess (0.0-2.0) mmol/L VBG Potassium (3.6-5.2) mmol/L Sodium 139 (132-148) mmol/L Chloride 108 H (98-107) mmol/L Glucose (65-105) mg/dl Lactate (0.7-2.1) mmol/L FiO2 % Potassium 4.6 (3.6-5.0) mmol/L Carbon Dioxide 10 L (21-33) mmol/L Anion Gap 25 H (10-20) BUN 26 H (7-21) mg/dL Creatinine 1.2 (0.7-1.2) mg/dl Est GFR ( Amer) 55 Est GFR (Non-Af Amer) 45 POC Glucose (mg/dL) 434 H* (65-110) mg/dL Random Glucose 417 H* D (70-110) mg/dL Serum Osmolality (272-300) mosm/kg Calcium 8.5 (8.4-10.5) mg/dL Phosphorus 4.1 (2.5-4.5) mg/dL Magnesium 2.2 (1.7-2.2) mg/dL Total Bilirubin (0.2-1.3) mg/dL AST (14-36) U/L ALT (7-56) U/L Alkaline Phosphatase (38-126) U/L Lactate Dehydrogenase (333-699) U/L Total Creatine Kinase (35-230) U/L Troponin I ng/mL NT-Pro-B Natriuret Pep 71.9 (0-450) pg/mL Total Protein (5.8-8.3) g/dL Albumin (3.0-4.8) g/dL Globulin gm/dL Albumin/Globulin Ratio (1.1-1.8) Venous Blood Potassium (3.6-5.2) mmol/L Urine Color (YELLOW) Urine Appearance (CLEAR) Urine pH (4.7-8.0) Ur Specific [place] (1.005-1.035) Urine Protein (<30 mg/dL) mg/dL Urine Glucose (UA) (NEGATIVE) mg/dL Urine Ketones (NEGATIVE) mg/dL Urine Blood (NEGATIVE) Urine Nitrate (NEGATIVE) Urine Bilirubin (NEGATIVE) Urine Urobilinogen (<1 E.U./dL) E.U./dL Ur Leukocyte Esterase (NEGATIVE) Kiel/uL B-Hydroxybutyrate (0.02-0.27) mM 03/30/18 03/30/18 03/30/18 Range/Units 12:59 12:59 11:53 WBC (4.5-11.0) 10^3/ul RBC (3.5-6.1) 10^6/uL Hgb (12.0-16.0) g/dL Hct (36.0-48.0) % MCV (80.0-105.0) fl MCH (25.0-35.0) pg MCHC (31.0-37.0) g/dl RDW (11.5-14.5) % Plt Count (120.0-450.0) 10^3/uL MPV (7.0-11.0) fl Gran % (50.0-68.0) % Lymph % (Auto) (22.0-35.0) % [place] % (Auto) (1.0-6.0) % Eos % (Auto) (1.5-5.0) % Baso % (Auto) (0.0-3.0) % Gran # (1.4-6.5) Lymph # (Auto) (1.2-3.4) [place] # (Auto) (0.1-0.6) Eos # (Auto) (0.0-0.7) Baso # (Auto) (0.0-2.0) K/mm3 PT (9.4-12.5) SECONDS INR APTT (25.1-36.5) Seconds pO2 (30-55) mm/Hg VBG pH (7.32-7.43) VBG pCO2 (40-60) VBG HCO3 (21-28) mmol/l VBG Total CO2 (22-28) mmol.L VBG O2 Sat (Calc) (40-65) % VBG Base Excess (0.0-2.0) mmol/L VBG Potassium (3.6-5.2) mmol/L Sodium 134 (132-148) mmol/L Chloride 100 (98-107) mmol/L Glucose (65-105) mg/dl Lactate (0.7-2.1) mmol/L FiO2 % Potassium 4.7 (3.6-5.0) mmol/L Carbon Dioxide 11 L (21-33) mmol/L Anion Gap 28 H (10-20) BUN 29 H (7-21) mg/dL Creatinine 1.4 H (0.7-1.2) mg/dl Est GFR ( Amer) 46 Est GFR (Non-Af Amer) 38 POC Glucose (mg/dL) (65-110) mg/dL Random Glucose 553 H* D (70-110) mg/dL Serum Osmolality 323 H (272-300) mosm/kg Calcium 8.9 (8.4-10.5) mg/dL Phosphorus (2.5-4.5) mg/dL Magnesium 2.3 H (1.7-2.2) mg/dL Total Bilirubin 0.7 (0.2-1.3) mg/dL AST 18 (14-36) U/L ALT 21 (7-56) U/L Alkaline Phosphatase 141 H D (38-126) U/L Lactate Dehydrogenase 492 (333-699) U/L Total Creatine Kinase 96 (35-230) U/L Troponin I < 0.01 ng/mL NT-Pro-B Natriuret Pep (0-450) pg/mL Total Protein 7.7 (5.8-8.3) g/dL Albumin 4.1 (3.0-4.8) g/dL Globulin 3.6 gm/dL Albumin/Globulin Ratio 1.1 (1.1-1.8) Venous Blood Potassium (3.6-5.2) mmol/L Urine Color Yellow (YELLOW) Urine Appearance Clear (CLEAR) Urine pH 5.5 (4.7-8.0) Ur Specific [place] 1.015 (1.005-1.035) Urine Protein Negative (<30 mg/dL) mg/dL Urine Glucose (UA) >=1000 (NEGATIVE) mg/dL Urine Ketones >=80 (NEGATIVE) mg/dL Urine Blood Negative (NEGATIVE) Urine Nitrate Negative (NEGATIVE) Urine Bilirubin Negative (NEGATIVE) Urine Urobilinogen 0.2 (<1 E.U./dL) E.U./dL Ur Leukocyte Esterase Negative (NEGATIVE) Kiel/uL B-Hydroxybutyrate 8.31 H (0.02-0.27) mM 03/30/18 03/30/18 03/30/18 Range/Units 10:25 10:25 10:25 WBC 8.2 D (4.5-11.0) 10^3/ul RBC 4.31 (3.5-6.1) 10^6/uL Hgb 12.7 (12.0-16.0) g/dL Hct 38.2 (36.0-48.0) % MCV 88.6 (80.0-105.0) fl MCH 29.5 (25.0-35.0) pg MCHC 33.2 (31.0-37.0) g/dl RDW 13.0 (11.5-14.5) % Plt Count 222 (120.0-450.0) 10^3/uL MPV 10.4 (7.0-11.0) fl Gran % 61.6 (50.0-68.0) % Lymph % (Auto) 30.6 (22.0-35.0) % [place] % (Auto) 4.8 (1.0-6.0) % Eos % (Auto) 2.4 (1.5-5.0) % Baso % (Auto) 0.6 (0.0-3.0) % Gran # 5.04 (1.4-6.5) Lymph # (Auto) 2.5 (1.2-3.4) [place] # (Auto) 0.4 (0.1-0.6) Eos # (Auto) 0.2 (0.0-0.7) Baso # (Auto) 0.05 (0.0-2.0) K/mm3 PT 11.6 (9.4-12.5) SECONDS INR 1.01 APTT 29.1 (25.1-36.5) Seconds pO2 80 H (30-55) mm/Hg VBG pH 7.13 L* (7.32-7.43) VBG pCO2 37.0 L (40-60) VBG HCO3 12.3 L (21-28) mmol/l VBG Total CO2 13.4 L (22-28) mmol.L VBG O2 Sat (Calc) 97.1 H (40-65) % VBG Base Excess -16.1 L (0.0-2.0) mmol/L VBG Potassium 7.0 H* (3.6-5.2) mmol/L Sodium 128.0 L (132-148) mmol/L Chloride 95.0 L (98-107) mmol/L Glucose 589 H* (65-105) mg/dl Lactate 1.9 (0.7-2.1) mmol/L FiO2 21.0 % Potassium (3.6-5.0) mmol/L Carbon Dioxide (21-33) mmol/L Anion Gap (10-20) BUN (7-21) mg/dL Creatinine (0.7-1.2) mg/dl Est GFR ( Amer) Est GFR (Non-Af Amer) POC Glucose (mg/dL) (65-110) mg/dL Random Glucose (70-110) mg/dL Serum Osmolality (272-300) mosm/kg Calcium (8.4-10.5) mg/dL Phosphorus (2.5-4.5) mg/dL Magnesium (1.7-2.2) mg/dL Total Bilirubin (0.2-1.3) mg/dL AST (14-36) U/L ALT (7-56) U/L Alkaline Phosphatase (38-126) U/L Lactate Dehydrogenase (333-699) U/L Total Creatine Kinase (35-230) U/L Troponin I ng/mL NT-Pro-B Natriuret Pep (0-450) pg/mL Total Protein (5.8-8.3) g/dL Albumin (3.0-4.8) g/dL Globulin gm/dL Albumin/Globulin Ratio (1.1-1.8) Venous Blood Potassium 7.0 H* (3.6-5.2) mmol/L Urine Color (YELLOW) Urine Appearance (CLEAR) Urine pH (4.7-8.0) Ur Specific [place] (1.005-1.035) Urine Protein (<30 mg/dL) mg/dL Urine Glucose (UA) (NEGATIVE) mg/dL Urine Ketones (NEGATIVE) mg/dL Urine Blood (NEGATIVE) Urine Nitrate (NEGATIVE) Urine Bilirubin (NEGATIVE) Urine Urobilinogen (<1 E.U./dL) E.U./dL Ur Leukocyte Esterase (NEGATIVE) Kiel/uL B-Hydroxybutyrate (0.02-0.27) mM 03/30/18 Range/Units 09:54 WBC (4.5-11.0) 10^3/ul RBC (3.5-6.1) 10^6/uL Hgb (12.0-16.0) g/dL Hct (36.0-48.0) % MCV (80.0-105.0) fl MCH (25.0-35.0) pg MCHC (31.0-37.0) g/dl RDW (11.5-14.5) % Plt Count (120.0-450.0) 10^3/uL MPV (7.0-11.0) fl Gran % (50.0-68.0) % Lymph % (Auto) (22.0-35.0) % [place] % (Auto) (1.0-6.0) % Eos % (Auto) (1.5-5.0) % Baso % (Auto) (0.0-3.0) % Gran # (1.4-6.5) Lymph # (Auto) (1.2-3.4) [place] # (Auto) (0.1-0.6) Eos # (Auto) (0.0-0.7) Baso # (Auto) (0.0-2.0) K/mm3 PT (9.4-12.5) SECONDS INR APTT (25.1-36.5) Seconds pO2 (30-55) mm/Hg VBG pH (7.32-7.43) VBG pCO2 (40-60) VBG HCO3 (21-28) mmol/l VBG Total CO2 (22-28) mmol.L VBG O2 Sat (Calc) (40-65) % VBG Base Excess (0.0-2.0) mmol/L VBG Potassium (3.6-5.2) mmol/L Sodium (132-148) mmol/L Chloride (98-107) mmol/L Glucose (65-105) mg/dl Lactate (0.7-2.1) mmol/L FiO2 % Potassium (3.6-5.0) mmol/L Carbon Dioxide (21-33) mmol/L Anion Gap (10-20) BUN (7-21) mg/dL Creatinine (0.7-1.2) mg/dl Est GFR ( Amer) Est GFR (Non-Af Amer) POC Glucose (mg/dL) 468 H* (65-110) mg/dL Random Glucose (70-110) mg/dL Serum Osmolality (272-300) mosm/kg Calcium (8.4-10.5) mg/dL Phosphorus (2.5-4.5) mg/dL Magnesium (1.7-2.2) mg/dL Total Bilirubin (0.2-1.3) mg/dL AST (14-36) U/L ALT (7-56) U/L Alkaline Phosphatase (38-126) U/L Lactate Dehydrogenase (333-699) U/L Total Creatine Kinase (35-230) U/L Troponin I ng/mL NT-Pro-B Natriuret Pep (0-450) pg/mL Total Protein (5.8-8.3) g/dL Albumin (3.0-4.8) g/dL Globulin gm/dL Albumin/Globulin Ratio (1.1-1.8) Venous Blood Potassium (3.6-5.2) mmol/L Urine Color (YELLOW) Urine Appearance (CLEAR) Urine pH (4.7-8.0) Ur Specific [place] (1.005-1.035) Urine Protein (<30 mg/dL) mg/dL Urine Glucose (UA) (NEGATIVE) mg/dL Urine Ketones (NEGATIVE) mg/dL Urine Blood (NEGATIVE) Urine Nitrate (NEGATIVE) Urine Bilirubin (NEGATIVE) Urine Urobilinogen (<1 E.U./dL) E.U./dL Ur Leukocyte Esterase (NEGATIVE) Kiel/uL B-Hydroxybutyrate (0.02-0.27) mM Laboratory Results - last 24 hr 03/30/18 03/30/18 03/30/18 09:54 10:25 10:25 WBC 8.2 D RBC 4.31 Hgb 12.7 Hct 38.2 MCV 88.6 MCH 29.5 MCHC 33.2 RDW 13.0 Plt Count 222 MPV 10.4 Gran % 61.6 Lymph % (Auto) 30.6 [place] % (Auto) 4.8 Eos % (Auto) 2.4 Baso % (Auto) 0.6 Gran # 5.04 Lymph # (Auto) 2.5 [place] # (Auto) 0.4 Eos # (Auto) 0.2 Baso # (Auto) 0.05 PT INR APTT pO2 80 H VBG pH 7.13 L* VBG pCO2 37.0 L VBG HCO3 12.3 L VBG Total CO2 13.4 L VBG O2 Sat (Calc) 97.1 H VBG Base Excess -16.1 L VBG Potassium 7.0 H* Sodium 128.0 L Chloride 95.0 L Glucose 589 H* Lactate 1.9 FiO2 21.0 Potassium Carbon Dioxide Anion Gap BUN Creatinine Est GFR ( Amer) Est GFR (Non-Af Amer) POC Glucose (mg/dL) 468 H* Random Glucose Serum Osmolality Calcium Phosphorus Magnesium Total Bilirubin AST ALT Alkaline Phosphatase Lactate Dehydrogenase Total Creatine Kinase Troponin I NT-Pro-B Natriuret Pep Total Protein Albumin Globulin Albumin/Globulin Ratio Venous Blood Potassium 7.0 H* Urine Color Urine Appearance Urine pH Ur Specific [place] Urine Protein Urine Glucose (UA) Urine Ketones Urine Blood Urine Nitrate Urine Bilirubin Urine Urobilinogen Ur Leukocyte Esterase B-Hydroxybutyrate 03/30/18 03/30/18 03/30/18 10:25 11:53 12:59 WBC RBC Hgb Hct MCV MCH MCHC RDW Plt Count MPV Gran % Lymph % (Auto) [place] % (Auto) Eos % (Auto) Baso % (Auto) Gran # Lymph # (Auto) [place] # (Auto) Eos # (Auto) Baso # (Auto) PT 11.6 INR 1.01 APTT 29.1 pO2 VBG pH VBG pCO2 VBG HCO3 VBG Total CO2 VBG O2 Sat (Calc) VBG Base Excess VBG Potassium Sodium 134 Chloride 100 Glucose Lactate FiO2 Potassium 4.7 Carbon Dioxide 11 L Anion Gap 28 H BUN 29 H Creatinine 1.4 H Est GFR ( Amer) 46 Est GFR (Non-Af Amer) 38 POC Glucose (mg/dL) Random Glucose 553 H* D Serum Osmolality Calcium 8.9 Phosphorus Magnesium 2.3 H Total Bilirubin 0.7 AST 18 ALT 21 Alkaline Phosphatase 141 H D Lactate Dehydrogenase 492 Total Creatine Kinase 96 Troponin I < 0.01 NT-Pro-B Natriuret Pep Total Protein 7.7 Albumin 4.1 Globulin 3.6 Albumin/Globulin Ratio 1.1 Venous Blood Potassium Urine Color Yellow Urine Appearance Clear Urine pH 5.5 Ur Specific [place] 1.015 Urine Protein Negative Urine Glucose (UA) >=1000 Urine Ketones >=80 Urine Blood Negative Urine Nitrate Negative Urine Bilirubin Negative Urine Urobilinogen 0.2 Ur Leukocyte Esterase Negative B-Hydroxybutyrate 8.31 H 03/30/18 03/30/18 03/30/18 12:59 16:08 16:15 WBC RBC Hgb Hct MCV MCH MCHC RDW Plt Count MPV Gran % Lymph % (Auto) [place] % (Auto) Eos % (Auto) Baso % (Auto) Gran # Lymph # (Auto) [place] # (Auto) Eos # (Auto) Baso # (Auto) PT INR APTT 23.4 L pO2 VBG pH VBG pCO2 VBG HCO3 VBG Total CO2 VBG O2 Sat (Calc) VBG Base Excess VBG Potassium Sodium Chloride Glucose Lactate FiO2 Potassium Carbon Dioxide Anion Gap BUN Creatinine Est GFR ( Amer) Est GFR (Non-Af Amer) POC Glucose (mg/dL) 434 H* Random Glucose Serum Osmolality 323 H Calcium Phosphorus Magnesium Total Bilirubin AST ALT Alkaline Phosphatase Lactate Dehydrogenase Total Creatine Kinase Troponin I NT-Pro-B Natriuret Pep Total Protein Albumin Globulin Albumin/Globulin Ratio Venous Blood Potassium Urine Color Urine Appearance Urine pH Ur Specific [place] Urine Protein Urine Glucose (UA) Urine Ketones Urine Blood Urine Nitrate Urine Bilirubin Urine Urobilinogen Ur Leukocyte Esterase B-Hydroxybutyrate 03/30/18 03/30/18 03/30/18 16:15 16:15 20:00 WBC RBC Hgb Hct MCV MCH MCHC RDW Plt Count MPV Gran % Lymph % (Auto) [place] % (Auto) Eos % (Auto) Baso % (Auto) Gran # Lymph # (Auto) [place] # (Auto) Eos # (Auto) Baso # (Auto) PT INR APTT pO2 37 VBG pH 7.10 L* VBG pCO2 34.0 L VBG HCO3 10.6 L VBG Total CO2 11.6 L VBG O2 Sat (Calc) 66.9 H VBG Base Excess -18.1 L VBG Potassium 4.5 Sodium 139 139.0 140 Chloride 108 H 104.0 109 H Glucose 433 H* D Lactate 1.8 FiO2 21.0 Potassium 4.6 4.7 Carbon Dioxide 10 L 15 L Anion Gap 25 H 21 H BUN 26 H 27 H Creatinine 1.2 1.2 Est GFR ( Amer) 55 55 Est GFR (Non-Af Amer) 45 45 POC Glucose (mg/dL) Random Glucose 417 H* D 196 H Serum Osmolality Calcium 8.5 9.1 Phosphorus 4.1 3.7 Magnesium 2.2 2.3 H Total Bilirubin AST ALT Alkaline Phosphatase Lactate Dehydrogenase Total Creatine Kinase Troponin I NT-Pro-B Natriuret Pep 71.9 Total Protein Albumin Globulin Albumin/Globulin Ratio Venous Blood Potassium 4.5 Urine Color Urine Appearance Urine pH Ur Specific [place] Urine Protein Urine Glucose (UA) Urine Ketones Urine Blood Urine Nitrate Urine Bilirubin Urine Urobilinogen Ur Leukocyte Esterase B-Hydroxybutyrate 03/30/18 03/31/18 03/31/18 20:00 01:20 04:15 WBC RBC Hgb Hct MCV MCH MCHC RDW Plt Count MPV Gran % Lymph % (Auto) [place] % (Auto) Eos % (Auto) Baso % (Auto) Gran # Lymph # (Auto) [place] # (Auto) Eos # (Auto) Baso # (Auto) PT INR APTT pO2 30 VBG pH 7.16 L* VBG pCO2 43.0 VBG HCO3 15.3 L VBG Total CO2 16.6 L VBG O2 Sat (Calc) 58.3 VBG Base Excess -13.0 L VBG Potassium 4.8 Sodium 139.0 139 137 Chloride 108.0 H 109 H 109 H Glucose 200 H Lactate 1.3 FiO2 21.0 Potassium 4.4 4.0 Carbon Dioxide 19 L 19 L Anion Gap 16 13 BUN 24 H 23 H Creatinine 1.2 1.0 Est GFR ( Amer) 55 > 60 Est GFR (Non-Af Amer) 45 56 POC Glucose (mg/dL) Random Glucose 193 H 201 H Serum Osmolality Calcium 8.7 8.4 Phosphorus 3.1 2.6 Magnesium 2.2 2.1 Total Bilirubin 0.5 AST 30 ALT 22 Alkaline Phosphatase 114 Lactate Dehydrogenase Total Creatine Kinase Troponin I NT-Pro-B Natriuret Pep Total Protein 7.4 Albumin 3.8 Globulin 3.6 Albumin/Globulin Ratio 1.1 Venous Blood Potassium 4.8 Urine Color Urine Appearance Urine pH Ur Specific [place] Urine Protein Urine Glucose (UA) Urine Ketones Urine Blood Urine Nitrate Urine Bilirubin Urine Urobilinogen Ur Leukocyte Esterase B-Hydroxybutyrate 03/31/18 04:15 WBC 5.9 D RBC 3.99 Hgb 11.5 L Hct 34.6 L MCV 86.7 MCH 28.8 MCHC 33.2 RDW 13.2 Plt Count 211 MPV 9.7 Gran % 59.0 Lymph % (Auto) 30.3 [place] % (Auto) 6.9 H Eos % (Auto) 3.6 Baso % (Auto) 0.2 Gran # 3.49 Lymph # (Auto) 1.8 [place] # (Auto) 0.4 Eos # (Auto) 0.2 Baso # (Auto) 0.01 PT INR APTT pO2 VBG pH VBG pCO2 VBG HCO3 VBG Total CO2 VBG O2 Sat (Calc) VBG Base Excess VBG Potassium Sodium Chloride Glucose Lactate FiO2 Potassium Carbon Dioxide Anion Gap BUN Creatinine Est GFR ( Amer) Est GFR (Non-Af Amer) POC Glucose (mg/dL) Random Glucose Serum Osmolality Calcium Phosphorus Magnesium Total Bilirubin AST ALT Alkaline Phosphatase Lactate Dehydrogenase Total Creatine Kinase Troponin I NT-Pro-B Natriuret Pep Total Protein Albumin Globulin Albumin/Globulin Ratio Venous Blood Potassium Urine Color Urine Appearance Urine pH Ur Specific [place] Urine Protein Urine Glucose (UA) Urine Ketones Urine Blood Urine Nitrate Urine Bilirubin Urine Urobilinogen Ur Leukocyte Esterase B-Hydroxybutyrate EKG/Cardiology Studies: Cardiology / EKG Studies 03/30/18 10:07 ELECTROCARDIOGRAM Stat Comment: Reason For Exam: ams Fingerstick Blood Sugar Results: 443 Review of Systems - Constitutional Constitutional: absent: Fever, Chills, Sweats - EENT Eyes: absent: Blurred Vision Ears: absent: Decreased Hearing - Cardiovascular Cardiovascular: absent: Chest Pain - Respiratory Respiratory: absent: Dyspnea - Gastrointestinal Gastrointestinal: absent: Abdominal Pain, Constipation, Diarrhea, Nausea, Vomiting - Genitourinary Genitourinary: absent: Dysuria, Hematuria - Neurological Neurological: absent: Numbness, Tingling, Tremor, Weakness Critical Care Progress Note - Ventilator Checklist Head of Bed 30 Degrees: Yes PUD Prophalyxis: Yes DVT Prophylaxis: Yes - Nutrition Nutrition: Nutrition Category Date Time Status Consistent Carbohydrate [DIET] Diets 03/30/18 Dinner Ordered Assessment/Plan - Assessment and Plan (Free Text) Assessment: 63 year old female with past medical history of type 1 Diabetes with recurrent admission for DKA, HTN, hypertensive cardiovascular disease, hypertension, CHF, COPD, history of CVA with no residual deficits, bipolar disorder, schizophrenia presents by EMS because of lethargy as per family at bedside. Family called EMS when patient complained of lethargy. Patient is AAOx1 being only oriented to person but not place or time. In ED, patient was found to have glucose of 553 with anion gap of 23 and >80 ketones on her UA. Plan: Neuro: -She continues to be AAOx1. Baseline mental status derived from previous notes is better. -Altered mental status likely due to increased ketones and metabolic acidosis. -Reorient patient as necessary. Cardio: -regular rate and rhythm, normotensive at 137/49, no signs of HD compromise -EKG: NSR at HR: 90 -Patient has history of CHF with last echocardiogram in 2016 showing EF of 71%. -Troponin<0.01 -Pro-BNP: 79 -Maintain MAP>65. -Monitor for S/S, HD compromise. Pulm: -Patient is not in respiratory distress. CTA B/L -Patient is stating well on room air. -Maintain O2 saturation>95%. -O2 NC PRN -CXR: no active pulmonary disease -Elevate bed to 30 degrees GI: -Consistent carbohydrate diet. -Protonix 40 mg IV daily. /Nephro: -BUN/Cr decreased to 23/1. -UA 03/30: more than 1000 glucose, more than 80 ketones, negative LE, negative nitrates -Potassium: 4. Anion gap has closed so no longer has to be repleted. -Magnesium: 2.1 -Continue monitoring. -Replete electrolytes as needed. -Maintain I and Os -Daily weights -Maintain euvolemia. Endocrinology: -Random glucose: 201 -Insulin drip stopped and patient given one dose of levemir 15 U. One time dose of lispro 10 mg was given. Patient now on medium dose sliding scale insulin. -NS 1L bolus given. Patient currently on 1L NS at 100 cc/hr -Anion gap: 9 -VBG pH: increased to 7.22 today -Serum osmolarity 03/30: 323 -Beta hydroxybuterate level ordered. -Finger stick ACHS Heme/Onc: -H/H stable at 11.5/24.6 -No signs of HD compromise. -Continue monitoring H/H ID: -Afebrile, no leukocytosis. -Doubt infectious process as cause for DKA. Likely due to medication nonco mpliance. -Follow up BCx, UCx, MRSA -Lactate: 1.9 -Monitor for signs and symptoms of infection. DVT prophylaxis: heparin 5000 U Q8 GI prophylaxis: protonix 40 mg IV Disposition: Patient can transferred to Med/Surg. Patient is stable and in no acute distress. Patient seen and examined with Dr. Pacheco. - Date & Time Date: 03/31/18 Time: 08:07 <Jonny Pacheco - Last Filed: 03/31/18 10:57> CCU Objective - Vital Signs / Intake & Output Vital Signs (Last 4 hours): Vital Signs Pulse Resp BP Pulse Ox 03/31/18 10:14 93 H 124/66 03/31/18 09:51 97 H 124/65 03/31/18 07:50 95 H 21 100 03/31/18 07:40 100 H 100 03/31/18 07:30 93 H 14 99 03/31/18 07:20 90 16 141/62 100 03/31/18 07:10 92 H 20 100 03/31/18 07:00 86 14 98 Intake and Output (Last 8hrs): Intake & Output 03/30/18 03/31/18 03/31/18 22:59 06:59 14:59 Intake Total 3055 1123 Output Total 1500 Balance 3055 -377 Weight 220 lb 220 lb Intake: IV 3055 1123 KCl 400 Left Upper arm 3000 Right Hand 30 d5 0.5ns 700 insulin 20 Oral 0 Output: Urine 1500 Urethral (Higgins) 1500 Other: Voiding Method Incontinent - Medications Active Medications: Active Medications Generic Name Dose Route Start Last Admin Trade Name Freq PRN Reason Stop Dose Admin Atorvastatin Calcium 20 mg 03/31/18 10:00 03/31/18 09:59 Lipitor PO 20 mg DAILY LELIA Administration Benzonatate 100 mg 03/31/18 07:22 03/31/18 09:57 Tessalon Perles PO 100 mg Q6H PRN Administration Cough Carvedilol 25 mg 03/31/18 10:00 03/31/18 10:14 Coreg PO 25 mg BID LELIA Administration Clopidogrel Bisulfate 75 mg 03/31/18 10:00 03/31/18 09:58 Plavix PO 75 mg DAILY LELIA Administration Dextrose 0 ml 03/30/18 15:10 Dextrose 50% Inj IV STAT PRN Hypoglycemia Protocol Protocol Gabapentin 100 mg 03/31/18 10:00 03/31/18 09:59 Neurontin PO 100 mg TID LELIA Administration Protocol Heparin Sodium (Porcine) 5,000 units 03/30/18 22:00 03/31/18 05:48 Heparin SC 5,000 units Q8 LELIA Administration Dextrose 1,000 mls @ 0 mls/hr 03/30/18 15:10 Dextrose 5% In Water 1000 Ml IV .Q0M PRN Hypoglycemia Protocol Protocol Per Protocol Dextrose/Sodium Chloride 1,000 mls @ 150 mls/hr 03/31/18 05:37 03/31/18 05:54 Dextrose 5%/0.45% Ns 1000 Ml IV 150 mls/hr .Q6H40M LELIA Administration Sodium Chloride 1,000 mls @ 100 mls/hr 03/31/18 09:20 Sodium Chloride 0.9% IV 03/31/18 19:19 .Q10H STA Insulin Human Lispro 0 units 03/31/18 07:30 03/31/18 08:43 Humalog Med SC 3 u ACHS LELIA Administration Protocol Losartan Potassium 50 mg 03/31/18 10:00 03/31/18 09:51 Cozaar PO 50 mg DAILY LELIA Administration Pantoprazole Sodium 40 mg 04/01/18 07:30 Protonix Ec Tab PO ACB LELIA Topiramate 150 mg 03/31/18 22:00 Topamax PO HS LELIA Protocol Venlafaxine HCl 75 mg 03/31/18 10:00 03/31/18 10:01 Effexor Xr PO 75 mg TID LELIA Administration - Patient Studies Lab Studies: Lab Studies 03/31/18 03/31/18 03/31/18 Range/Units 08:00 08:00 06:52 WBC (4.5-11.0) 10^3/ul RBC (3.5-6.1) 10^6/uL Hgb (12.0-16.0) g/dL Hct (36.0-48.0) % MCV (80.0-105.0) fl MCH (25.0-35.0) pg MCHC (31.0-37.0) g/dl RDW (11.5-14.5) % Plt Count (120.0-450.0) 10^3/uL MPV (7.0-11.0) fl Gran % (50.0-68.0) % Lymph % (Auto) (22.0-35.0) % [place] % (Auto) (1.0-6.0) % Eos % (Auto) (1.5-5.0) % Baso % (Auto) (0.0-3.0) % Gran # (1.4-6.5) Lymph # (Auto) (1.2-3.4) [place] # (Auto) (0.1-0.6) Eos # (Auto) (0.0-0.7) Baso # (Auto) (0.0-2.0) K/mm3 PT (9.4-12.5) SECONDS INR APTT (25.1-36.5) Seconds pO2 30 (30-55) mm/Hg VBG pH 7.22 L (7.32-7.43) VBG pCO2 48.0 (40-60) VBG HCO3 19.6 L (21-28) mmol/l VBG Total CO2 (22-28) mmol.L VBG O2 Sat (Calc) 63.5 (40-65) % VBG Base Excess -8.2 L (0.0-2.0) mmol/L VBG Potassium (3.6-5.2) mmol/L Sodium 136 (132-148) mmol/L Chloride 106 (98-107) mmol/L Glucose (65-105) mg/dl Lactate (0.7-2.1) mmol/L FiO2 % Potassium 4.6 (3.6-5.0) mmol/L Carbon Dioxide 19 L (21-33) mmol/L Anion Gap 15 (10-20) BUN 20 (7-21) mg/dL Creatinine 1.0 (0.7-1.2) mg/dl Est GFR ( Amer) > 60 Est GFR (Non-Af Amer) 56 POC Glucose (mg/dL) 231 H (65-110) mg/dL Random Glucose 288 H (70-110) mg/dL Serum Osmolality (272-300) mosm/kg Calcium 8.7 (8.4-10.5) mg/dL Phosphorus 2.6 (2.5-4.5) mg/dL Magnesium 2.1 (1.7-2.2) mg/dL Total Bilirubin (0.2-1.3) mg/dL AST (14-36) U/L ALT (7-56) U/L Alkaline Phosphatase (38-126) U/L Lactate Dehydrogenase (333-699) U/L Total Creatine Kinase (35-230) U/L Troponin I ng/mL NT-Pro-B Natriuret Pep (0-450) pg/mL Total Protein (5.8-8.3) g/dL Albumin (3.0-4.8) g/dL Globulin gm/dL Albumin/Globulin Ratio (1.1-1.8) Venous Blood Potassium (3.6-5.2) mmol/L Urine Color (YELLOW) Urine Appearance (CLEAR) Urine pH (4.7-8.0) Ur Specific [place] (1.005-1.035) Urine Protein (<30 mg/dL) mg/dL Urine Glucose (UA) (NEGATIVE) mg/dL Urine Ketones (NEGATIVE) mg/dL Urine Blood (NEGATIVE) Urine Nitrate (NEGATIVE) Urine Bilirubin (NEGATIVE) Urine Urobilinogen (<1 E.U./dL) E.U./dL Ur Leukocyte Esterase (NEGATIVE) Kiel/uL B-Hydroxybutyrate (0.02-0.27) mM 03/31/18 03/31/18 03/31/18 Range/Units 05:56 05:02 04:15 WBC 5.9 D (4.5-11.0) 10^3/ul RBC 3.99 (3.5-6.1) 10^6/uL Hgb 11.5 L (12.0-16.0) g/dL Hct 34.6 L (36.0-48.0) % MCV 86.7 (80.0-105.0) fl MCH 28.8 (25.0-35.0) pg MCHC 33.2 (31.0-37.0) g/dl RDW 13.2 (11.5-14.5) % Plt Count 211 (120.0-450.0) 10^3/uL MPV 9.7 (7.0-11.0) fl Gran % 59.0 (50.0-68.0) % Lymph % (Auto) 30.3 (22.0-35.0) % [place] % (Auto) 6.9 H (1.0-6.0) % Eos % (Auto) 3.6 (1.5-5.0) % Baso % (Auto) 0.2 (0.0-3.0) % Gran # 3.49 (1.4-6.5) Lymph # (Auto) 1.8 (1.2-3.4) [place] # (Auto) 0.4 (0.1-0.6) Eos # (Auto) 0.2 (0.0-0.7) Baso # (Auto) 0.01 (0.0-2.0) K/mm3 PT (9.4-12.5) SECONDS INR APTT (25.1-36.5) Seconds pO2 (30-55) mm/Hg VBG pH (7.32-7.43) VBG pCO2 (40-60) VBG HCO3 (21-28) mmol/l VBG Total CO2 (22-28) mmol.L VBG O2 Sat (Calc) (40-65) % VBG Base Excess (0.0-2.0) mmol/L VBG Potassium (3.6-5.2) mmol/L Sodium (132-148) mmol/L Chloride (98-107) mmol/L Glucose (65-105) mg/dl Lactate (0.7-2.1) mmol/L FiO2 % Potassium (3.6-5.0) mmol/L Carbon Dioxide (21-33) mmol/L Anion Gap (10-20) BUN (7-21) mg/dL Creatinine (0.7-1.2) mg/dl Est GFR ( Amer) Est GFR (Non-Af Amer) POC Glucose (mg/dL) 212 H 228 H (65-110) mg/dL Random Glucose (70-110) mg/dL Serum Osmolality (272-300) mosm/kg Calcium (8.4-10.5) mg/dL Phosphorus (2.5-4.5) mg/dL Magnesium (1.7-2.2) mg/dL Total Bilirubin (0.2-1.3) mg/dL AST (14-36) U/L ALT (7-56) U/L Alkaline Phosphatase (38-126) U/L Lactate Dehydrogenase (333-699) U/L Total Creatine Kinase (35-230) U/L Troponin I ng/mL NT-Pro-B Natriuret Pep (0-450) pg/mL Total Protein (5.8-8.3) g/dL Albumin (3.0-4.8) g/dL Globulin gm/dL Albumin/Globulin Ratio (1.1-1.8) Venous Blood Potassium (3.6-5.2) mmol/L Urine Color (YELLOW) Urine Appearance (CLEAR) Urine pH (4.7-8.0) Ur Specific [place] (1.005-1.035) Urine Protein (<30 mg/dL) mg/dL Urine Glucose (UA) (NEGATIVE) mg/dL Urine Ketones (NEGATIVE) mg/dL Urine Blood (NEGATIVE) Urine Nitrate (NEGATIVE) Urine Bilirubin (NEGATIVE) Urine Urobilinogen (<1 E.U./dL) E.U./dL Ur Leukocyte Esterase (NEGATIVE) Kiel/uL B-Hydroxybutyrate (0.02-0.27) mM 03/31/18 03/31/18 03/31/18 Range/Units 04:15 04:03 01:56 WBC (4.5-11.0) 10^3/ul RBC (3.5-6.1) 10^6/uL Hgb (12.0-16.0) g/dL Hct (36.0-48.0) % MCV (80.0-105.0) fl MCH (25.0-35.0) pg MCHC (31.0-37.0) g/dl RDW (11.5-14.5) % Plt Count (120.0-450.0) 10^3/uL MPV (7.0-11.0) fl Gran % (50.0-68.0) % Lymph % (Auto) (22.0-35.0) % [place] % (Auto) (1.0-6.0) % Eos % (Auto) (1.5-5.0) % Baso % (Auto) (0.0-3.0) % Gran # (1.4-6.5) Lymph # (Auto) (1.2-3.4) [place] # (Auto) (0.1-0.6) Eos # (Auto) (0.0-0.7) Baso # (Auto) (0.0-2.0) K/mm3 PT (9.4-12.5) SECONDS INR APTT (25.1-36.5) Seconds pO2 (30-55) mm/Hg VBG pH (7.32-7.43) VBG pCO2 (40-60) VBG HCO3 (21-28) mmol/l VBG Total CO2 (22-28) mmol.L VBG O2 Sat (Calc) (40-65) % VBG Base Excess (0.0-2.0) mmol/L VBG Potassium (3.6-5.2) mmol/L Sodium 137 (132-148) mmol/L Chloride 109 H (98-107) mmol/L Glucose (65-105) mg/dl Lactate (0.7-2.1) mmol/L FiO2 % Potassium 4.0 (3.6-5.0) mmol/L Carbon Dioxide 19 L (21-33) mmol/L Anion Gap 13 (10-20) BUN 23 H (7-21) mg/dL Creatinine 1.0 (0.7-1.2) mg/dl Est GFR ( Amer) > 60 Est GFR (Non-Af Amer) 56 POC Glucose (mg/dL) 213 H 189 H (65-110) mg/dL Random Glucose 201 H (70-110) mg/dL Serum Osmolality (272-300) mosm/kg Calcium 8.4 (8.4-10.5) mg/dL Phosphorus 2.6 (2.5-4.5) mg/dL Magnesium 2.1 (1.7-2.2) mg/dL Total Bilirubin 0.5 (0.2-1.3) mg/dL AST 30 (14-36) U/L ALT 22 (7-56) U/L Alkaline Phosphatase 114 (38-126) U/L Lactate Dehydrogenase (333-699) U/L Total Creatine Kinase (35-230) U/L Troponin I ng/mL NT-Pro-B Natriuret Pep (0-450) pg/mL Total Protein 7.4 (5.8-8.3) g/dL Albumin 3.8 (3.0-4.8) g/dL Globulin 3.6 gm/dL Albumin/Globulin Ratio 1.1 (1.1-1.8) Venous Blood Potassium (3.6-5.2) mmol/L Urine Color (YELLOW) Urine Appearance (CLEAR) Urine pH (4.7-8.0) Ur Specific [place] (1.005-1.035) Urine Protein (<30 mg/dL) mg/dL Urine Glucose (UA) (NEGATIVE) mg/dL Urine Ketones (NEGATIVE) mg/dL Urine Blood (NEGATIVE) Urine Nitrate (NEGATIVE) Urine Bilirubin (NEGATIVE) Urine Urobilinogen (<1 E.U./dL) E.U./dL Ur Leukocyte Esterase (NEGATIVE) Kiel/uL B-Hydroxybutyrate (0.02-0.27) mM 03/31/18 03/31/18 03/30/18 Range/Units 01:20 00:53 23:55 WBC (4.5-11.0) 10^3/ul RBC (3.5-6.1) 10^6/uL Hgb (12.0-16.0) g/dL Hct (36.0-48.0) % MCV (80.0-105.0) fl MCH (25.0-35.0) pg MCHC (31.0-37.0) g/dl RDW (11.5-14.5) % Plt Count (120.0-450.0) 10^3/uL MPV (7.0-11.0) fl Gran % (50.0-68.0) % Lymph % (Auto) (22.0-35.0) % [place] % (Auto) (1.0-6.0) % Eos % (Auto) (1.5-5.0) % Baso % (Auto) (0.0-3.0) % Gran # (1.4-6.5) Lymph # (Auto) (1.2-3.4) [place] # (Auto) (0.1-0.6) Eos # (Auto) (0.0-0.7) Baso # (Auto) (0.0-2.0) K/mm3 PT (9.4-12.5) SECONDS INR APTT (25.1-36.5) Seconds pO2 (30-55) mm/Hg VBG pH (7.32-7.43) VBG pCO2 (40-60) VBG HCO3 (21-28) mmol/l VBG Total CO2 (22-28) mmol.L VBG O2 Sat (Calc) (40-65) % VBG Base Excess (0.0-2.0) mmol/L VBG Potassium (3.6-5.2) mmol/L Sodium 139 (132-148) mmol/L Chloride 109 H (98-107) mmol/L Glucose (65-105) mg/dl Lactate (0.7-2.1) mmol/L FiO2 % Potassium 4.4 (3.6-5.0) mmol/L Carbon Dioxide 19 L (21-33) mmol/L Anion Gap 16 (10-20) BUN 24 H (7-21) mg/dL Creatinine 1.2 (0.7-1.2) mg/dl Est GFR ( Amer) 55 Est GFR (Non-Af Amer) 45 POC Glucose (mg/dL) 195 H 197 H (65-110) mg/dL Random Glucose 193 H (70-110) mg/dL Serum Osmolality (272-300) mosm/kg Calcium 8.7 (8.4-10.5) mg/dL Phosphorus 3.1 (2.5-4.5) mg/dL Magnesium 2.2 (1.7-2.2) mg/dL Total Bilirubin (0.2-1.3) mg/dL AST (14-36) U/L ALT (7-56) U/L Alkaline Phosphatase (38-126) U/L Lactate Dehydrogenase (333-699) U/L Total Creatine Kinase (35-230) U/L Troponin I ng/mL NT-Pro-B Natriuret Pep (0-450) pg/mL Total Protein (5.8-8.3) g/dL Albumin (3.0-4.8) g/dL Globulin gm/dL Albumin/Globulin Ratio (1.1-1.8) Venous Blood Potassium (3.6-5.2) mmol/L Urine Color (YELLOW) Urine Appearance (CLEAR) Urine pH (4.7-8.0) Ur Specific [place] (1.005-1.035) Urine Protein (<30 mg/dL) mg/dL Urine Glucose (UA) (NEGATIVE) mg/dL Urine Ketones (NEGATIVE) mg/dL Urine Blood (NEGATIVE) Urine Nitrate (NEGATIVE) Urine Bilirubin (NEGATIVE) Urine Urobilinogen (<1 E.U./dL) E.U./dL Ur Leukocyte Esterase (NEGATIVE) Kiel/uL B-Hydroxybutyrate (0.02-0.27) mM 03/30/18 03/30/18 03/30/18 Range/Units 22:51 22:00 20:52 WBC (4.5-11.0) 10^3/ul RBC (3.5-6.1) 10^6/uL Hgb (12.0-16.0) g/dL Hct (36.0-48.0) % MCV (80.0-105.0) fl MCH (25.0-35.0) pg MCHC (31.0-37.0) g/dl RDW (11.5-14.5) % Plt Count (120.0-450.0) 10^3/uL MPV (7.0-11.0) fl Gran % (50.0-68.0) % Lymph % (Auto) (22.0-35.0) % [place] % (Auto) (1.0-6.0) % Eos % (Auto) (1.5-5.0) % Baso % (Auto) (0.0-3.0) % Gran # (1.4-6.5) Lymph # (Auto) (1.2-3.4) [place] # (Auto) (0.1-0.6) Eos # (Auto) (0.0-0.7) Baso # (Auto) (0.0-2.0) K/mm3 PT (9.4-12.5) SECONDS INR APTT (25.1-36.5) Seconds pO2 (30-55) mm/Hg VBG pH (7.32-7.43) VBG pCO2 (40-60) VBG HCO3 (21-28) mmol/l VBG Total CO2 (22-28) mmol.L VBG O2 Sat (Calc) (40-65) % VBG Base Excess (0.0-2.0) mmol/L VBG Potassium (3.6-5.2) mmol/L Sodium (132-148) mmol/L Chloride (98-107) mmol/L Glucose (65-105) mg/dl Lactate (0.7-2.1) mmol/L FiO2 % Potassium (3.6-5.0) mmol/L Carbon Dioxide (21-33) mmol/L Anion Gap (10-20) BUN (7-21) mg/dL Creatinine (0.7-1.2) mg/dl Est GFR ( Amer) Est GFR (Non-Af Amer) POC Glucose (mg/dL) 233 H 156 H 177 H (65-110) mg/dL Random Glucose (70-110) mg/dL Serum Osmolality (272-300) mosm/kg Calcium (8.4-10.5) mg/dL Phosphorus (2.5-4.5) mg/dL Magnesium (1.7-2.2) mg/dL Total Bilirubin (0.2-1.3) mg/dL AST (14-36) U/L ALT (7-56) U/L Alkaline Phosphatase (38-126) U/L Lactate Dehydrogenase (333-699) U/L Total Creatine Kinase (35-230) U/L Troponin I ng/mL NT-Pro-B Natriuret Pep (0-450) pg/mL Total Protein (5.8-8.3) g/dL Albumin (3.0-4.8) g/dL Globulin gm/dL Albumin/Globulin Ratio (1.1-1.8) Venous Blood Potassium (3.6-5.2) mmol/L Urine Color (YELLOW) Urine Appearance (CLEAR) Urine pH (4.7-8.0) Ur Specific [place] (1.005-1.035) Urine Protein (<30 mg/dL) mg/dL Urine Glucose (UA) (NEGATIVE) mg/dL Urine Ketones (NEGATIVE) mg/dL Urine Blood (NEGATIVE) Urine Nitrate (NEGATIVE) Urine Bilirubin (NEGATIVE) Urine Urobilinogen (<1 E.U./dL) E.U./dL Ur Leukocyte Esterase (NEGATIVE) Kiel/uL B-Hydroxybutyrate (0.02-0.27) mM 03/30/18 03/30/18 03/30/18 Range/Units 20:02 20:00 20:00 WBC (4.5-11.0) 10^3/ul RBC (3.5-6.1) 10^6/uL Hgb (12.0-16.0) g/dL Hct (36.0-48.0) % MCV (80.0-105.0) fl MCH (25.0-35.0) pg MCHC (31.0-37.0) g/dl RDW (11.5-14.5) % Plt Count (120.0-450.0) 10^3/uL MPV (7.0-11.0) fl Gran % (50.0-68.0) % Lymph % (Auto) (22.0-35.0) % [place] % (Auto) (1.0-6.0) % Eos % (Auto) (1.5-5.0) % Baso % (Auto) (0.0-3.0) % Gran # (1.4-6.5) Lymph # (Auto) (1.2-3.4) [place] # (Auto) (0.1-0.6) Eos # (Auto) (0.0-0.7) Baso # (Auto) (0.0-2.0) K/mm3 PT (9.4-12.5) SECONDS INR APTT (25.1-36.5) Seconds pO2 30 (30-55) mm/Hg VBG pH 7.16 L* (7.32-7.43) VBG pCO2 43.0 (40-60) VBG HCO3 15.3 L (21-28) mmol/l VBG Total CO2 16.6 L (22-28) mmol.L VBG O2 Sat (Calc) 58.3 (40-65) % VBG Base Excess -13.0 L (0.0-2.0) mmol/L VBG Potassium 4.8 (3.6-5.2) mmol/L Sodium 139.0 140 (132-148) mmol/L Chloride 108.0 H 109 H (98-107) mmol/L Glucose 200 H (65-105) mg/dl Lactate 1.3 (0.7-2.1) mmol/L FiO2 21.0 % Potassium 4.7 (3.6-5.0) mmol/L Carbon Dioxide 15 L (21-33) mmol/L Anion Gap 21 H (10-20) BUN 27 H (7-21) mg/dL Creatinine 1.2 (0.7-1.2) mg/dl Est GFR ( Amer) 55 Est GFR (Non-Af Amer) 45 POC Glucose (mg/dL) 179 H (65-110) mg/dL Random Glucose 196 H (70-110) mg/dL Serum Osmolality (272-300) mosm/kg Calcium 9.1 (8.4-10.5) mg/dL Phosphorus 3.7 (2.5-4.5) mg/dL Magnesium 2.3 H (1.7-2.2) mg/dL Total Bilirubin (0.2-1.3) mg/dL AST (14-36) U/L ALT (7-56) U/L Alkaline Phosphatase (38-126) U/L Lactate Dehydrogenase (333-699) U/L Total Creatine Kinase (35-230) U/L Troponin I ng/mL NT-Pro-B Natriuret Pep (0-450) pg/mL Total Protein (5.8-8.3) g/dL Albumin (3.0-4.8) g/dL Globulin gm/dL Albumin/Globulin Ratio (1.1-1.8) Venous Blood Potassium 4.8 (3.6-5.2) mmol/L Urine Color (YELLOW) Urine Appearance (CLEAR) Urine pH (4.7-8.0) Ur Specific [place] (1.005-1.035) Urine Protein (<30 mg/dL) mg/dL Urine Glucose (UA) (NEGATIVE) mg/dL Urine Ketones (NEGATIVE) mg/dL Urine Blood (NEGATIVE) Urine Nitrate (NEGATIVE) Urine Bilirubin (NEGATIVE) Urine Urobilinogen (<1 E.U./dL) E.U./dL Ur Leukocyte Esterase (NEGATIVE) Kiel/uL B-Hydroxybutyrate (0.02-0.27) mM 03/30/18 03/30/18 03/30/18 Range/Units 19:01 17:46 16:57 WBC (4.5-11.0) 10^3/ul RBC (3.5-6.1) 10^6/uL Hgb (12.0-16.0) g/dL Hct (36.0-48.0) % MCV (80.0-105.0) fl MCH (25.0-35.0) pg MCHC (31.0-37.0) g/dl RDW (11.5-14.5) % Plt Count (120.0-450.0) 10^3/uL MPV (7.0-11.0) fl Gran % (50.0-68.0) % Lymph % (Auto) (22.0-35.0) % [place] % (Auto) (1.0-6.0) % Eos % (Auto) (1.5-5.0) % Baso % (Auto) (0.0-3.0) % Gran # (1.4-6.5) Lymph # (Auto) (1.2-3.4) [place] # (Auto) (0.1-0.6) Eos # (Auto) (0.0-0.7) Baso # (Auto) (0.0-2.0) K/mm3 PT (9.4-12.5) SECONDS INR APTT (25.1-36.5) Seconds pO2 (30-55) mm/Hg VBG pH (7.32-7.43) VBG pCO2 (40-60) VBG HCO3 (21-28) mmol/l VBG Total CO2 (22-28) mmol.L VBG O2 Sat (Calc) (40-65) % VBG Base Excess (0.0-2.0) mmol/L VBG Potassium (3.6-5.2) mmol/L Sodium (132-148) mmol/L Chloride (98-107) mmol/L Glucose (65-105) mg/dl Lactate (0.7-2.1) mmol/L FiO2 % Potassium (3.6-5.0) mmol/L Carbon Dioxide (21-33) mmol/L Anion Gap (10-20) BUN (7-21) mg/dL Creatinine (0.7-1.2) mg/dl Est GFR ( Amer) Est GFR (Non-Af Amer) POC Glucose (mg/dL) 255 H 300 H 359 H (65-110) mg/dL Random Glucose (70-110) mg/dL Serum Osmolality (272-300) mosm/kg Calcium (8.4-10.5) mg/dL Phosphorus (2.5-4.5) mg/dL Magnesium (1.7-2.2) mg/dL Total Bilirubin (0.2-1.3) mg/dL AST (14-36) U/L ALT (7-56) U/L Alkaline Phosphatase (38-126) U/L Lactate Dehydrogenase (333-699) U/L Total Creatine Kinase (35-230) U/L Troponin I ng/mL NT-Pro-B Natriuret Pep (0-450) pg/mL Total Protein (5.8-8.3) g/dL Albumin (3.0-4.8) g/dL Globulin gm/dL Albumin/Globulin Ratio (1.1-1.8) Venous Blood Potassium (3.6-5.2) mmol/L Urine Color (YELLOW) Urine Appearance (CLEAR) Urine pH (4.7-8.0) Ur Specific [place] (1.005-1.035) Urine Protein (<30 mg/dL) mg/dL Urine Glucose (UA) (NEGATIVE) mg/dL Urine Ketones (NEGATIVE) mg/dL Urine Blood (NEGATIVE) Urine Nitrate (NEGATIVE) Urine Bilirubin (NEGATIVE) Urine Urobilinogen (<1 E.U./dL) E.U./dL Ur Leukocyte Esterase (NEGATIVE) Kiel/uL B-Hydroxybutyrate (0.02-0.27) mM 03/30/18 03/30/18 03/30/18 Range/Units 16:15 16:15 16:15 WBC (4.5-11.0) 10^3/ul RBC (3.5-6.1) 10^6/uL Hgb (12.0-16.0) g/dL Hct (36.0-48.0) % MCV (80.0-105.0) fl MCH (25.0-35.0) pg MCHC (31.0-37.0) g/dl RDW (11.5-14.5) % Plt Count (120.0-450.0) 10^3/uL MPV (7.0-11.0) fl Gran % (50.0-68.0) % Lymph % (Auto) (22.0-35.0) % [place] % (Auto) (1.0-6.0) % Eos % (Auto) (1.5-5.0) % Baso % (Auto) (0.0-3.0) % Gran # (1.4-6.5) Lymph # (Auto) (1.2-3.4) [place] # (Auto) (0.1-0.6) Eos # (Auto) (0.0-0.7) Baso # (Auto) (0.0-2.0) K/mm3 PT (9.4-12.5) SECONDS INR APTT 23.4 L (25.1-36.5) Seconds pO2 37 (30-55) mm/Hg VBG pH 7.10 L* (7.32-7.43) VBG pCO2 34.0 L (40-60) VBG HCO3 10.6 L (21-28) mmol/l VBG Total CO2 11.6 L (22-28) mmol.L VBG O2 Sat (Calc) 66.9 H (40-65) % VBG Base Excess -18.1 L (0.0-2.0) mmol/L VBG Potassium 4.5 (3.6-5.2) mmol/L Sodium 139.0 139 (132-148) mmol/L Chloride 104.0 108 H (98-107) mmol/L Glucose 433 H* D (65-105) mg/dl Lactate 1.8 (0.7-2.1) mmol/L FiO2 21.0 % Potassium 4.6 (3.6-5.0) mmol/L Carbon Dioxide 10 L (21-33) mmol/L Anion Gap 25 H (10-20) BUN 26 H (7-21) mg/dL Creatinine 1.2 (0.7-1.2) mg/dl Est GFR ( Amer) 55 Est GFR (Non-Af Amer) 45 POC Glucose (mg/dL) (65-110) mg/dL Random Glucose 417 H* D (70-110) mg/dL Serum Osmolality (272-300) mosm/kg Calcium 8.5 (8.4-10.5) mg/dL Phosphorus 4.1 (2.5-4.5) mg/dL Magnesium 2.2 (1.7-2.2) mg/dL Total Bilirubin (0.2-1.3) mg/dL AST (14-36) U/L ALT (7-56) U/L Alkaline Phosphatase (38-126) U/L Lactate Dehydrogenase (333-699) U/L Total Creatine Kinase (35-230) U/L Troponin I ng/mL NT-Pro-B Natriuret Pep 71.9 (0-450) pg/mL Total Protein (5.8-8.3) g/dL Albumin (3.0-4.8) g/dL Globulin gm/dL Albumin/Globulin Ratio (1.1-1.8) Venous Blood Potassium 4.5 (3.6-5.2) mmol/L Urine Color (YELLOW) Urine Appearance (CLEAR) Urine pH (4.7-8.0) Ur Specific [place] (1.005-1.035) Urine Protein (<30 mg/dL) mg/dL Urine Glucose (UA) (NEGATIVE) mg/dL Urine Ketones (NEGATIVE) mg/dL Urine Blood (NEGATIVE) Urine Nitrate (NEGATIVE) Urine Bilirubin (NEGATIVE) Urine Urobilinogen (<1 E.U./dL) E.U./dL Ur Leukocyte Esterase (NEGATIVE) Kiel/uL B-Hydroxybutyrate (0.02-0.27) mM 03/30/18 03/30/18 03/30/18 Range/Units 16:08 15:17 13:37 WBC (4.5-11.0) 10^3/ul RBC (3.5-6.1) 10^6/uL Hgb (12.0-16.0) g/dL Hct (36.0-48.0) % MCV (80.0-105.0) fl MCH (25.0-35.0) pg MCHC (31.0-37.0) g/dl RDW (11.5-14.5) % Plt Count (120.0-450.0) 10^3/uL MPV (7.0-11.0) fl Gran % (50.0-68.0) % Lymph % (Auto) (22.0-35.0) % [place] % (Auto) (1.0-6.0) % Eos % (Auto) (1.5-5.0) % Baso % (Auto) (0.0-3.0) % Gran # (1.4-6.5) Lymph # (Auto) (1.2-3.4) [place] # (Auto) (0.1-0.6) Eos # (Auto) (0.0-0.7) Baso # (Auto) (0.0-2.0) K/mm3 PT (9.4-12.5) SECONDS INR APTT (25.1-36.5) Seconds pO2 (30-55) mm/Hg VBG pH (7.32-7.43) VBG pCO2 (40-60) VBG HCO3 (21-28) mmol/l VBG Total CO2 (22-28) mmol.L VBG O2 Sat (Calc) (40-65) % VBG Base Excess (0.0-2.0) mmol/L VBG Potassium (3.6-5.2) mmol/L Sodium (132-148) mmol/L Chloride (98-107) mmol/L Glucose (65-105) mg/dl Lactate (0.7-2.1) mmol/L FiO2 % Potassium (3.6-5.0) mmol/L Carbon Dioxide (21-33) mmol/L Anion Gap (10-20) BUN (7-21) mg/dL Creatinine (0.7-1.2) mg/dl Est GFR ( Amer) Est GFR (Non-Af Amer) POC Glucose (mg/dL) 434 H* 434 H* > 500 H* (65-110) mg/dL Random Glucose (70-110) mg/dL Serum Osmolality (272-300) mosm/kg Calcium (8.4-10.5) mg/dL Phosphorus (2.5-4.5) mg/dL Magnesium (1.7-2.2) mg/dL Total Bilirubin (0.2-1.3) mg/dL AST (14-36) U/L ALT (7-56) U/L Alkaline Phosphatase (38-126) U/L Lactate Dehydrogenase (333-699) U/L Total Creatine Kinase (35-230) U/L Troponin I ng/mL NT-Pro-B Natriuret Pep (0-450) pg/mL Total Protein (5.8-8.3) g/dL Albumin (3.0-4.8) g/dL Globulin gm/dL Albumin/Globulin Ratio (1.1-1.8) Venous Blood Potassium (3.6-5.2) mmol/L Urine Color (YELLOW) Urine Appearance (CLEAR) Urine pH (4.7-8.0) Ur Specific [place] (1.005-1.035) Urine Protein (<30 mg/dL) mg/dL Urine Glucose (UA) (NEGATIVE) mg/dL Urine Ketones (NEGATIVE) mg/dL Urine Blood (NEGATIVE) Urine Nitrate (NEGATIVE) Urine Bilirubin (NEGATIVE) Urine Urobilinogen (<1 E.U./dL) E.U./dL Ur Leukocyte Esterase (NEGATIVE) Kiel/uL B-Hydroxybutyrate (0.02-0.27) mM 03/30/18 03/30/18 03/30/18 Range/Units 12:59 12:59 11:53 WBC (4.5-11.0) 10^3/ul RBC (3.5-6.1) 10^6/uL Hgb (12.0-16.0) g/dL Hct (36.0-48.0) % MCV (80.0-105.0) fl MCH (25.0-35.0) pg MCHC (31.0-37.0) g/dl RDW (11.5-14.5) % Plt Count (120.0-450.0) 10^3/uL MPV (7.0-11.0) fl Gran % (50.0-68.0) % Lymph % (Auto) (22.0-35.0) % [place] % (Auto) (1.0-6.0) % Eos % (Auto) (1.5-5.0) % Baso % (Auto) (0.0-3.0) % Gran # (1.4-6.5) Lymph # (Auto) (1.2-3.4) [place] # (Auto) (0.1-0.6) Eos # (Auto) (0.0-0.7) Baso # (Auto) (0.0-2.0) K/mm3 PT (9.4-12.5) SECONDS INR APTT (25.1-36.5) Seconds pO2 (30-55) mm/Hg VBG pH (7.32-7.43) VBG pCO2 (40-60) VBG HCO3 (21-28) mmol/l VBG Total CO2 (22-28) mmol.L VBG O2 Sat (Calc) (40-65) % VBG Base Excess (0.0-2.0) mmol/L VBG Potassium (3.6-5.2) mmol/L Sodium 134 (132-148) mmol/L Chloride 100 (98-107) mmol/L Glucose (65-105) mg/dl Lactate (0.7-2.1) mmol/L FiO2 % Potassium 4.7 (3.6-5.0) mmol/L Carbon Dioxide 11 L (21-33) mmol/L Anion Gap 28 H (10-20) BUN 29 H (7-21) mg/dL Creatinine 1.4 H (0.7-1.2) mg/dl Est GFR ( Amer) 46 Est GFR (Non-Af Amer) 38 POC Glucose (mg/dL) (65-110) mg/dL Random Glucose 553 H* D (70-110) mg/dL Serum Osmolality 323 H (272-300) mosm/kg Calcium 8.9 (8.4-10.5) mg/dL Phosphorus (2.5-4.5) mg/dL Magnesium 2.3 H (1.7-2.2) mg/dL Total Bilirubin 0.7 (0.2-1.3) mg/dL AST 18 (14-36) U/L ALT 21 (7-56) U/L Alkaline Phosphatase 141 H D (38-126) U/L Lactate Dehydrogenase 492 (333-699) U/L Total Creatine Kinase 96 (35-230) U/L Troponin I < 0.01 ng/mL NT-Pro-B Natriuret Pep (0-450) pg/mL Total Protein 7.7 (5.8-8.3) g/dL Albumin 4.1 (3.0-4.8) g/dL Globulin 3.6 gm/dL Albumin/Globulin Ratio 1.1 (1.1-1.8) Venous Blood Potassium (3.6-5.2) mmol/L Urine Color Yellow (YELLOW) Urine Appearance Clear (CLEAR) Urine pH 5.5 (4.7-8.0) Ur Specific [place] 1.015 (1.005-1.035) Urine Protein Negative (<30 mg/dL) mg/dL Urine Glucose (UA) >=1000 (NEGATIVE) mg/dL Urine Ketones >=80 (NEGATIVE) mg/dL Urine Blood Negative (NEGATIVE) Urine Nitrate Negative (NEGATIVE) Urine Bilirubin Negative (NEGATIVE) Urine Urobilinogen 0.2 (<1 E.U./dL) E.U./dL Ur Leukocyte Esterase Negative (NEGATIVE) [place]/uL B-Hydroxybutyrate 8.31 H (0.02-0.27) mM 03/30/18 03/30/18 Range/Units 10:25 10:25 WBC (4.5-11.0) 10^3/ul RBC (3.5-6.1) 10^6/uL Hgb (12.0-16.0) g/dL Hct (36.0-48.0) % MCV (80.0-105.0) fl MCH (25.0-35.0) pg MCHC (31.0-37.0) g/dl RDW (11.5-14.5) % Plt Count (120.0-450.0) 10^3/uL MPV (7.0-11.0) fl Gran % (50.0-68.0) % Lymph % (Auto) (22.0-35.0) % [place] % (Auto) (1.0-6.0) % Eos % (Auto) (1.5-5.0) % Baso % (Auto) (0.0-3.0) % Gran # (1.4-6.5) Lymph # (Auto) (1.2-3.4) [place] # (Auto) (0.1-0.6) Eos # (Auto) (0.0-0.7) Baso # (Auto) (0.0-2.0) K/mm3 PT 11.6 (9.4-12.5) SECONDS INR 1.01 APTT 29.1 (25.1-36.5) Seconds pO2 80 H (30-55) mm/Hg VBG pH 7.13 L* (7.32-7.43) VBG pCO2 37.0 L (40-60) VBG HCO3 12.3 L (21-28) mmol/l VBG Total CO2 13.4 L (22-28) mmol.L VBG O2 Sat (Calc) 97.1 H (40-65) % VBG Base Excess -16.1 L (0.0-2.0) mmol/L VBG Potassium 7.0 H* (3.6-5.2) mmol/L Sodium 128.0 L (132-148) mmol/L Chloride 95.0 L (98-107) mmol/L Glucose 589 H* (65-105) mg/dl Lactate 1.9 (0.7-2.1) mmol/L FiO2 21.0 % Potassium (3.6-5.0) mmol/L Carbon Dioxide (21-33) mmol/L Anion Gap (10-20) BUN (7-21) mg/dL Creatinine (0.7-1.2) mg/dl Est GFR ( Amer) Est GFR (Non-Af Amer) POC Glucose (mg/dL) (65-110) mg/dL Random Glucose (70-110) mg/dL Serum Osmolality (272-300) mosm/kg Calcium (8.4-10.5) mg/dL Phosphorus (2.5-4.5) mg/dL Magnesium (1.7-2.2) mg/dL Total Bilirubin (0.2-1.3) mg/dL AST (14-36) U/L ALT (7-56) U/L Alkaline Phosphatase (38-126) U/L Lactate Dehydrogenase (333-699) U/L Total Creatine Kinase (35-230) U/L Troponin I ng/mL NT-Pro-B Natriuret Pep (0-450) pg/mL Total Protein (5.8-8.3) g/dL Albumin (3.0-4.8) g/dL Globulin gm/dL Albumin/Globulin Ratio (1.1-1.8) Venous Blood Potassium 7.0 H* (3.6-5.2) mmol/L Urine Color (YELLOW) Urine Appearance (CLEAR) Urine pH (4.7-8.0) Ur Specific [place] (1.005-1.035) Urine Protein (<30 mg/dL) mg/dL Urine Glucose (UA) (NEGATIVE) mg/dL Urine Ketones (NEGATIVE) mg/dL Urine Blood (NEGATIVE) Urine Nitrate (NEGATIVE) Urine Bilirubin (NEGATIVE) Urine Urobilinogen (<1 E.U./dL) E.U./dL Ur Leukocyte Esterase (NEGATIVE) [place]iel/uL B-Hydroxybutyrate (0.02-0.27) mM Laboratory Results - last 24 hr 03/30/18 03/30/18 03/30/18 10:25 10:25 11:53 WBC RBC Hgb Hct MCV MCH MCHC RDW Plt Count MPV Gran % Lymph % (Auto) [place] % (Auto) Eos % (Auto) Baso % (Auto) Gran # Lymph # (Auto) [place] # (Auto) Eos # (Auto) Baso # (Auto) PT 11.6 INR 1.01 APTT 29.1 pO2 80 H VBG pH 7.13 L* VBG pCO2 37.0 L VBG HCO3 12.3 L VBG Total CO2 13.4 L VBG O2 Sat (Calc) 97.1 H VBG Base Excess -16.1 L VBG Potassium 7.0 H* Sodium 128.0 L Chloride 95.0 L Glucose 589 H* Lactate 1.9 FiO2 21.0 Potassium Carbon Dioxide Anion Gap BUN Creatinine Est GFR ( Amer) Est GFR (Non-Af Amer) POC Glucose (mg/dL) Random Glucose Serum Osmolality Calcium Phosphorus Magnesium Total Bilirubin AST ALT Alkaline Phosphatase Lactate Dehydrogenase Total Creatine Kinase Troponin I NT-Pro-B Natriuret Pep Total Protein Albumin Globulin Albumin/Globulin Ratio Venous Blood Potassium 7.0 H* Urine Color Yellow Urine Appearance Clear Urine pH 5.5 Ur Specific [place] 1.015 Urine Protein Negative Urine Glucose (UA) >=1000 Urine Ketones >=80 Urine Blood Negative Urine Nitrate Negative Urine Bilirubin Negative Urine Urobilinogen 0.2 Ur Leukocyte Esterase Negative B-Hydroxybutyrate 03/30/18 03/30/18 03/30/18 12:59 12:59 13:37 WBC RBC Hgb Hct MCV MCH MCHC RDW Plt Count MPV Gran % Lymph % (Auto) [place] % (Auto) Eos % (Auto) Baso % (Auto) Gran # Lymph # (Auto) [place] # (Auto) Eos # (Auto) Baso # (Auto) PT INR APTT pO2 VBG pH VBG pCO2 VBG HCO3 VBG Total CO2 VBG O2 Sat (Calc) VBG Base Excess VBG Potassium Sodium 134 Chloride 100 Glucose Lactate FiO2 Potassium 4.7 Carbon Dioxide 11 L Anion Gap 28 H BUN 29 H Creatinine 1.4 H Est GFR ( Amer) 46 Est GFR (Non-Af Amer) 38 POC Glucose (mg/dL) > 500 H* Random Glucose 553 H* D Serum Osmolality 323 H Calcium 8.9 Phosphorus Magnesium 2.3 H Total Bilirubin 0.7 AST 18 ALT 21 Alkaline Phosphatase 141 H D Lactate Dehydrogenase 492 Total Creatine Kinase 96 Troponin I < 0.01 NT-Pro-B Natriuret Pep Total Protein 7.7 Albumin 4.1 Globulin 3.6 Albumin/Globulin Ratio 1.1 Venous Blood Potassium Urine Color Urine Appearance Urine pH Ur Specific [place] Urine Protein Urine Glucose (UA) Urine Ketones Urine Blood Urine Nitrate Urine Bilirubin Urine Urobilinogen Ur Leukocyte Esterase B-Hydroxybutyrate 8.31 H 03/30/18 03/30/18 03/30/18 15:17 16:08 16:15 WBC RBC Hgb Hct MCV MCH MCHC RDW Plt Count MPV Gran % Lymph % (Auto) [place] % (Auto) Eos % (Auto) Baso % (Auto) Gran # Lymph # (Auto) [place] # (Auto) Eos # (Auto) Baso # (Auto) PT INR APTT 23.4 L pO2 VBG pH VBG pCO2 VBG HCO3 VBG Total CO2 VBG O2 Sat (Calc) VBG Base Excess VBG Potassium Sodium Chloride Glucose Lactate FiO2 Potassium Carbon Dioxide Anion Gap BUN Creatinine Est GFR ( Amer) Est GFR (Non-Af Amer) POC Glucose (mg/dL) 434 H* 434 H* Random Glucose Serum Osmolality Calcium Phosphorus Magnesium Total Bilirubin AST ALT Alkaline Phosphatase Lactate Dehydrogenase Total Creatine Kinase Troponin I NT-Pro-B Natriuret Pep Total Protein Albumin Globulin Albumin/Globulin Ratio Venous Blood Potassium Urine Color Urine Appearance Urine pH Ur Specific [place] Urine Protein Urine Glucose (UA) Urine Ketones Urine Blood Urine Nitrate Urine Bilirubin Urine Urobilinogen Ur Leukocyte Esterase B-Hydroxybutyrate 03/30/18 03/30/18 03/30/18 16:15 16:15 16:57 WBC RBC Hgb Hct MCV MCH MCHC RDW Plt Count MPV Gran % Lymph % (Auto) [place] % (Auto) Eos % (Auto) Baso % (Auto) Gran # Lymph # (Auto) [place] # (Auto) Eos # (Auto) Baso # (Auto) PT INR APTT pO2 37 VBG pH 7.10 L* VBG pCO2 34.0 L VBG HCO3 10.6 L VBG Total CO2 11.6 L VBG O2 Sat (Calc) 66.9 H VBG Base Excess -18.1 L VBG Potassium 4.5 Sodium 139 139.0 Chloride 108 H 104.0 Glucose 433 H* D Lactate 1.8 FiO2 21.0 Potassium 4.6 Carbon Dioxide 10 L Anion Gap 25 H BUN 26 H Creatinine 1.2 Est GFR ( Amer) 55 Est GFR (Non-Af Amer) 45 POC Glucose (mg/dL) 359 H Random Glucose 417 H* D Serum Osmolality Calcium 8.5 Phosphorus 4.1 Magnesium 2.2 Total Bilirubin AST ALT Alkaline Phosphatase Lactate Dehydrogenase Total Creatine Kinase Troponin I NT-Pro-B Natriuret Pep 71.9 Total Protein Albumin Globulin Albumin/Globulin Ratio Venous Blood Potassium 4.5 Urine Color Urine Appearance Urine pH Ur Specific [place] Urine Protein Urine Glucose (UA) Urine Ketones Urine Blood Urine Nitrate Urine Bilirubin Urine Urobilinogen Ur Leukocyte Esterase B-Hydroxybutyrate 03/30/18 03/30/18 03/30/18 17:46 19:01 20:00 WBC RBC Hgb Hct MCV MCH MCHC RDW Plt Count MPV Gran % Lymph % (Auto) [place] % (Auto) Eos % (Auto) Baso % (Auto) Gran # Lymph # (Auto) [place] # (Auto) Eos # (Auto) Baso # (Auto) PT INR APTT pO2 VBG pH VBG pCO2 VBG HCO3 VBG Total CO2 VBG O2 Sat (Calc) VBG Base Excess VBG Potassium Sodium 140 Chloride 109 H Glucose Lactate FiO2 Potassium 4.7 Carbon Dioxide 15 L Anion Gap 21 H BUN 27 H Creatinine 1.2 Est GFR ( Amer) 55 Est GFR (Non-Af Amer) 45 POC Glucose (mg/dL) 300 H 255 H Random Glucose 196 H Serum Osmolality Calcium 9.1 Phosphorus 3.7 Magnesium 2.3 H Total Bilirubin AST ALT Alkaline Phosphatase Lactate Dehydrogenase Total Creatine Kinase Troponin I NT-Pro-B Natriuret Pep Total Protein Albumin Globulin Albumin/Globulin Ratio Venous Blood Potassium Urine Color Urine Appearance Urine pH Ur Specific [place] Urine Protein Urine Glucose (UA) Urine Ketones Urine Blood Urine Nitrate Urine Bilirubin Urine Urobilinogen Ur Leukocyte Esterase B-Hydroxybutyrate 03/30/18 03/30/18 03/30/18 20:00 20:02 20:52 WBC RBC Hgb Hct MCV MCH MCHC RDW Plt Count MPV Gran % Lymph % (Auto) [place] % (Auto) Eos % (Auto) Baso % (Auto) Gran # Lymph # (Auto) [place] # (Auto) Eos # (Auto) Baso # (Auto) PT INR APTT pO2 30 VBG pH 7.16 L* VBG pCO2 43.0 VBG HCO3 15.3 L VBG Total CO2 16.6 L VBG O2 Sat (Calc) 58.3 VBG Base Excess -13.0 L VBG Potassium 4.8 Sodium 139.0 Chloride 108.0 H Glucose 200 H Lactate 1.3 FiO2 21.0 Potassium Carbon Dioxide Anion Gap BUN Creatinine Est GFR ( Amer) Est GFR (Non-Af Amer) POC Glucose (mg/dL) 179 H 177 H Random Glucose Serum Osmolality Calcium Phosphorus Magnesium Total Bilirubin AST ALT Alkaline Phosphatase Lactate Dehydrogenase Total Creatine Kinase Troponin I NT-Pro-B Natriuret Pep Total Protein Albumin Globulin Albumin/Globulin Ratio Venous Blood Potassium 4.8 Urine Color Urine Appearance Urine pH Ur Specific [place] Urine Protein Urine Glucose (UA) Urine Ketones Urine Blood Urine Nitrate Urine Bilirubin Urine Urobilinogen Ur Leukocyte Esterase B-Hydroxybutyrate 03/30/18 03/30/18 03/30/18 22:00 22:51 23:55 WBC RBC Hgb Hct MCV MCH MCHC RDW Plt Count MPV Gran % Lymph % (Auto) [place] % (Auto) Eos % (Auto) Baso % (Auto) Gran # Lymph # (Auto) [place] # (Auto) Eos # (Auto) Baso # (Auto) PT INR APTT pO2 VBG pH VBG pCO2 VBG HCO3 VBG Total CO2 VBG O2 Sat (Calc) VBG Base Excess VBG Potassium Sodium Chloride Glucose Lactate FiO2 Potassium Carbon Dioxide Anion Gap BUN Creatinine Est GFR ( Amer) Est GFR (Non-Af Amer) POC Glucose (mg/dL) 156 H 233 H 197 H Random Glucose Serum Osmolality Calcium Phosphorus Magnesium Total Bilirubin AST ALT Alkaline Phosphatase Lactate Dehydrogenase Total Creatine Kinase Troponin I NT-Pro-B Natriuret Pep Total Protein Albumin Globulin Albumin/Globulin Ratio Venous Blood Potassium Urine Color Urine Appearance Urine pH Ur Specific [place] Urine Protein Urine Glucose (UA) Urine Ketones Urine Blood Urine Nitrate Urine Bilirubin Urine Urobilinogen Ur Leukocyte Esterase B-Hydroxybutyrate 03/31/18 03/31/18 03/31/18 00:53 01:20 01:56 WBC RBC Hgb Hct MCV MCH MCHC RDW Plt Count MPV Gran % Lymph % (Auto) [place] % (Auto) Eos % (Auto) Baso % (Auto) Gran # Lymph # (Auto) [place] # (Auto) Eos # (Auto) Baso # (Auto) PT INR APTT pO2 VBG pH VBG pCO2 VBG HCO3 VBG Total CO2 VBG O2 Sat (Calc) VBG Base Excess VBG Potassium Sodium 139 Chloride 109 H Glucose Lactate FiO2 Potassium 4.4 Carbon Dioxide 19 L Anion Gap 16 BUN 24 H Creatinine 1.2 Est GFR ( Amer) 55 Est GFR (Non-Af Amer) 45 POC Glucose (mg/dL) 195 H 189 H Random Glucose 193 H Serum Osmolality Calcium 8.7 Phosphorus 3.1 Magnesium 2.2 Total Bilirubin AST ALT Alkaline Phosphatase Lactate Dehydrogenase Total Creatine Kinase Troponin I NT-Pro-B Natriuret Pep Total Protein Albumin Globulin Albumin/Globulin Ratio Venous Blood Potassium Urine Color Urine Appearance Urine pH Ur Specific [place] Urine Protein Urine Glucose (UA) Urine Ketones Urine Blood Urine Nitrate Urine Bilirubin Urine Urobilinogen Ur Leukocyte Esterase B-Hydroxybutyrate 03/31/18 03/31/18 03/31/18 04:03 04:15 04:15 WBC 5.9 D RBC 3.99 Hgb 11.5 L Hct 34.6 L MCV 86.7 MCH 28.8 MCHC 33.2 RDW 13.2 Plt Count 211 MPV 9.7 Gran % 59.0 Lymph % (Auto) 30.3 [place] % (Auto) 6.9 H Eos % (Auto) 3.6 Baso % (Auto) 0.2 Gran # 3.49 Lymph # (Auto) 1.8 [place] # (Auto) 0.4 Eos # (Auto) 0.2 Baso # (Auto) 0.01 PT INR APTT pO2 VBG pH VBG pCO2 VBG HCO3 VBG Total CO2 VBG O2 Sat (Calc) VBG Base Excess VBG Potassium Sodium 137 Chloride 109 H Glucose Lactate FiO2 Potassium 4.0 Carbon Dioxide 19 L Anion Gap 13 BUN 23 H Creatinine 1.0 Est GFR ( Amer) > 60 Est GFR (Non-Af Amer) 56 POC Glucose (mg/dL) 213 H Random Glucose 201 H Serum Osmolality Calcium 8.4 Phosphorus 2.6 Magnesium 2.1 Total Bilirubin 0.5 AST 30 ALT 22 Alkaline Phosphatase 114 Lactate Dehydrogenase Total Creatine Kinase Troponin I NT-Pro-B Natriuret Pep Total Protein 7.4 Albumin 3.8 Globulin 3.6 Albumin/Globulin Ratio 1.1 Venous Blood Potassium Urine Color Urine Appearance Urine pH Ur Specific [place] Urine Protein Urine Glucose (UA) Urine Ketones Urine Blood Urine Nitrate Urine Bilirubin Urine Urobilinogen Ur Leukocyte Esterase B-Hydroxybutyrate 03/31/18 03/31/18 03/31/18 05:02 05:56 06:52 WBC RBC Hgb Hct MCV MCH MCHC RDW Plt Count MPV Gran % Lymph % (Auto) [place] % (Auto) Eos % (Auto) Baso % (Auto) Gran # Lymph # (Auto) [place] # (Auto) Eos # (Auto) Baso # (Auto) PT INR APTT pO2 VBG pH VBG pCO2 VBG HCO3 VBG Total CO2 VBG O2 Sat (Calc) VBG Base Excess VBG Potassium Sodium Chloride Glucose Lactate FiO2 Potassium Carbon Dioxide Anion Gap BUN Creatinine Est GFR ( Amer) Est GFR (Non-Af Amer) POC Glucose (mg/dL) 228 H 212 H 231 H Random Glucose Serum Osmolality Calcium Phosphorus Magnesium Total Bilirubin AST ALT Alkaline Phosphatase Lactate Dehydrogenase Total Creatine Kinase Troponin I NT-Pro-B Natriuret Pep Total Protein Albumin Globulin Albumin/Globulin Ratio Venous Blood Potassium Urine Color Urine Appearance Urine pH Ur Specific [place] Urine Protein Urine Glucose (UA) Urine Ketones Urine Blood Urine Nitrate Urine Bilirubin Urine Urobilinogen Ur Leukocyte Esterase B-Hydroxybutyrate 03/31/18 03/31/18 08:00 08:00 WBC RBC Hgb Hct MCV MCH MCHC RDW Plt Count MPV Gran % Lymph % (Auto) [place] % (Auto) Eos % (Auto) Baso % (Auto) Gran # Lymph # (Auto) [place] # (Auto) Eos # (Auto) Baso # (Auto) PT INR APTT pO2 30 VBG pH 7.22 L VBG pCO2 48.0 VBG HCO3 19.6 L VBG Total CO2 VBG O2 Sat (Calc) 63.5 VBG Base Excess -8.2 L VBG Potassium Sodium 136 Chloride 106 Glucose Lactate FiO2 Potassium 4.6 Carbon Dioxide 19 L Anion Gap 15 BUN 20 Creatinine 1.0 Est GFR ( Amer) > 60 Est GFR (Non-Af Amer) 56 POC Glucose (mg/dL) Random Glucose 288 H Serum Osmolality Calcium 8.7 Phosphorus 2.6 Magnesium 2.1 Total Bilirubin AST ALT Alkaline Phosphatase Lactate Dehydrogenase Total Creatine Kinase Troponin I NT-Pro-B Natriuret Pep Total Protein Albumin Globulin Albumin/Globulin Ratio Venous Blood Potassium Urine Color Urine Appearance Urine pH Ur Specific [place] Urine Protein Urine Glucose (UA) Urine Ketones Urine Blood Urine Nitrate Urine Bilirubin Urine Urobilinogen Ur Leukocyte Esterase B-Hydroxybutyrate EKG/Cardiology Studies: Cardiology / EKG Studies 03/30/18 10:07 ELECTROCARDIOGRAM Stat Comment: Reason For Exam: ams Critical Care Progress Note - Nutrition Nutrition: Nutrition Category Date Time Status Consistent Carbohydrate [DIET] Diets 03/30/18 Dinner Ordered Assessment/Plan - Assessment and Plan (Free Text) Plan: Patient seen and examined on rounds with resident, agree with note with following additions/exceptions: Patient is 63yo female with past medical history of type 1 Diabetes with recurrent admission for DKA, HTN, hypertension, CHF, COPD, history of CVA with no residual deficits, bipolar disorder, schizophrenia admitted for DKA, 2/2 l ikely to non compliance with insulin regiment at home. Currently afebrile, BP stable, comfortable in NAD, doing well, OFF insulin drip, AG closed, given Levemir in the AM. Endocrinology following. DKA, resolved HTN CAD CHF Hx CVA Recommend: - supp o2 as needed, duonebs PRN, IS - NO ID issues, follow up cultures, procal - BP control - IVF - Sliding scale, Levemir - follow up Endo - check HgBA1C, TSH - GI ppx - DVT ppx - STABLE, transfer to med surg
[2018-03-31 08:21] LABS: VENOUS BLOOD GAS BASE EXCESS -8.2 mmol/L (0.0-2.0); VENOUS BLOOD GAS PO2 30 mm/Hg (30-55); VENOUS BLOOD PH 7.22 (7.32-7.43)
--- NOTE | 2018-03-31 08:25 | CON ---
DATE: 03/30/2018 HISTORY OF PRESENT ILLNESS: This is a 63-year-old female with known history of type 1 insulin-dependent diabetes, presenting here with generalized body weakness and supervening marked hyperglycemic accelerations and has been evaluated to be in diabetic ketoacidosis and is being referred now for diabetic evaluation and management. PAST MEDICAL HISTORY: As mentioned above, history of type 1 insulin-dependent diabetes, on a combination of Levemir taken as 20 units at bedtime and Humalog at 8 units t.i.d. before meals, history of hypertension and dyslipidemia, history of diabetic retinopathy, polyneuropathy and nephropathy, history of cerebrovascular disease with no residual weakness and peripheral arterial disease and vasculopathy, history of generalized anxiety and depression, currently on psychotropic medications, history of COPD and previous admissions for exacerbations of the same, history of prior admissions for congestive heart failure as noted. FAMILY HISTORY: Positive for hypertension, diabetes. PAST SURGICAL HISTORY: She had previous back surgeries in both cervical and lumbar spines with a prior lumbar laminectomy and fusion procedure. She also had a prior cholecystectomy and a total abdominal hysterectomy with bilateral salpingo-oophorectomy. SOCIAL HISTORY: The patient has supportive family. No known substance use. REVIEW OF SYSTEMS: Admits to generalized body weakness and was noted by the family to have increasing hypersomnolence and lethargy over the last 2 days or so prior to admission. Also admits to progressive bouts of dizziness and lightheadedness with optimal energy level. No chest pains or palpitations or PNDs. Her oral intake has been variable with nausea, dyspepsia and marked polyuria, nocturia and polydipsia. PHYSICAL EXAMINATION: GENERAL: This is an overweight female, in no apparent distress. VITAL SIGNS: She has a blood pressure of 140/80; pulse of 100 beats per minute, regular; temperature 98; respirations 20. Height is 5 feet 11 inches. Weight is 214 pounds. HEENT: Head normocephalic. Eyes anicteric with pink conjunctivae. Funduscopy not possible at this time. Ears, nose, and throat otherwise normal. NECK: Supple. Thyroid gland is normal in size. No carotid bruits or cervical adenopathy. CARDIOPULMONARY: Adynamic precordium. S1, S2 is rapid and regular. LUNGS: Clear to auscultation. ABDOMEN: Flat, soft with positive bowel sounds. EXTREMITIES: No peripheral edema. Pulses are +2 bilaterally. LABORATORY DATA: The initial chemistry showed a BUN of 29, sodium 134, potassium 4.7, chloride 100, CO2 of 11, glucose 553 and creatinine 1.4. Her glucose levels have ranged from 323-468 mg/dL. ASSESSMENT: This is a 63-year-old female with uncontrolled and decompensated type 1 insulin-dependent diabetes, presenting here with marked hyperglycemic accelerations and associated constitutional symptoms with progressive dizziness and lightheadedness and has been evaluated to be in diabetic ketoacidosis with dehydration and prerenal azotemia and spurious hyponatremia. She also has diabetic microvascular complications of diabetic retinopathy with impaired visual acuity and diabetic polyneuropathy with underlying nephropathy. She also had diabetic macrovascular complications of cerebrovascular disease and peripheral vascular disease and vasculopathy. PLAN OF MANAGEMENT: We will concur with the present initiation of an insulin drip infusion as part of intensive insulin therapy as undertaken. We will try to achieve at least a CO2 of above 18-20 with a near closure of the anion gap to switch her over from intensive insulin therapy with an insulin drip infusion to a more physiologic basal and bolus insulin drug combination as indicated. We will continue the vigorous IV hydration as ordered. We will obtain serial chemistries and supplement accordingly as needed. We will follow. Hemoglobin A1c will be done to confirm her prior glycemic control and baseline thyroid function studies will be ordered with a lipid panel as ordered. Polly Carrillo MD
[2018-03-31 08:36] LABS: BLOOD UREA NITROGEN 20 mg/dL (7-21); CALCIUM 8.7 mg/dL (8.4-10.5); GFR NON-AFRICAN AMERICAN 56
[2018-03-31] MEDS ORDERED: Sodium Chloride 0.9% 1,000 ML IV STA ×2 (09:18→09:20)
[2018-03-31] MEDS ORDERED: Insulin Lispro 1 UNITS/0.01 ML SC ONE (09:18)
[2018-03-31] MEDS: Venlafaxine 75 mg ER Cap PO SCH ×2 (10:01→15:00)
[2018-03-31 12:00] LABS: BLOOD UREA NITROGEN 17 mg/dL (7-21); CALCIUM 8.2 mg/dL (8.4-10.5); GFR NON-AFRICAN AMERICAN 56
--- NOTE | 2018-03-31 12:10 | PN ---
DATE: 03/31/2018 LOCATION: [facility], room 5. HISTORY: This is a 63-year-old female with recent uncontrolled type 1 insulin-dependent diabetes presenting here with marked hyperglycemic accelerations and supervening diabetic ketoacidosis and is now being followed closely for metabolic management. Her repeat chemistries today showed a BUN of 20, sodium 136, potassium 4.6, chloride 106, CO2 is now 19 and glucose is 288 with a creatinine of 1. ASSESSMENT: This is a 63-year-old female with uncontrolled and decompensated type 1 insulin-dependent diabetes presenting here with diabetic ketoacidosis and dehydration with prerenal azotemia and spurious hyponatremia. PLAN OF MANAGEMENT: She received vigorous IV hydration which should be continued until she is completely out of metabolic acidosis. Would also recommend that she be switched over now from the intensive insulin therapy with the insulin drip infusion which has been discontinued this morning and switch her over to a more physiologic basal and bolus insulin drug combination with Humalog given before meals and Levemir given at bedtime as indicated. Would recommend even the resumption of her home insulin regimen with Levemir given as 20 units at bedtime and Humalog given at a higher dosing of 10 units t.i.d. before meals as ordered. We will obtain serial chemistries and supplement accordingly as needed. We will follow. Polly Carrillo MD
[2018-03-31] MEDS: Insulin Lispro (humaLOG) LOW Coverage SC SCH ×2 (17:55→21:48)
[2018-03-31] MEDS: Insulin Lispro 1 UNITS/0.01 ML SC SCH (17:56)
[2018-03-31] MEDS: Sodium Chloride 0.9% 1,000 ML IV SCH (20:17)
[2018-03-31] MEDS: Insulin Detemir 100 units/ml Vial (Levemir) SC SCH (21:47)
--- NOTE | 2018-03-31 23:48 | HP ---
DATE OF EXAM: 03/31/2018 HISTORY OF PRESENT ILLNESS: The patient is a 63-year-old female with a history of type 1 diabetes mellitus who presented to the emergency department in diabetic ketoacidosis. The patient was given IV hydration as well as insulin and admitted to the intensive care unit for further evaluation and management. Endocrinology consultation has been called with Dr. Polly Carrillo as well. The patient's past medical history includes hypertension, hypertensive cardiovascular disease, CHF, COPD, history of CVA in the remote past with no residual deficits. The patient has a history of bipolar disorder and chronic schizophrenia. Past surgical history includes back surgery in the remote past with lumbar laminectomy and fusion. The patient has a history of cholecystectomy, total abdominal hysterectomy, and bilateral salpingo-oophorectomy. ALLERGIES: THE PATIENT'S ALLERGIES INCLUDE ASPIRIN, BENADRYL, STELAZINE AND CORTISONE. CURRENT MEDICATIONS: Include losartan 50 mg daily, Effexor 75 mg three times daily, Neurontin 100 mg three times daily, Plavix 75 mg daily, Topamax 100 mg twice daily, Toujeo 14 units a.c. and at bedtime. FAMILY HISTORY: Noncontributory. SOCIAL HISTORY: The patient denies any tobacco or alcohol or drug use. REVIEW OF SYSTEMS: The patient denies any chest pain, shortness of breath, swelling of the legs. No nausea, no vomiting, no diarrhea, and no jaundice. PHYSICAL EXAMINATION: General: The patient is a well-developed, moderately obese female in no acute distress. VITAL SIGNS: Blood pressure 124/66, pulse 93, the patient is afebrile, and respiratory rate 20. HEENT: Head is normocephalic and atraumatic. Pupils equal, round and reactive to light. Extraocular movements intact. NECK: Supple. No thyromegaly. No carotid bruit. No adenopathy. LUNGS: Clear. HEART: Regular rate and rhythm. ABDOMEN: Soft and nontender. Bowel sounds are normoactive. EXTREMITIES: Without cyanosis, clubbing or edema. NEUROLOGIC: The patient is awake and oriented x3 without focal sensory or motor deficits. SKIN: Warm and dry. LABORATORY DATA: WBC 5.9, hemoglobin 11.5 and hematocrit 34.6. Sodium 136, potassium 4.5, chloride 107, CO2 18, BUN 17, creatinine 1.0, and glucose 291. Chest x-ray shows no active disease. IMPRESSION: 1. Diabetic ketoacidosis. 2. Type 1 diabetes mellitus. 3. Hypertension, hypertensive cardiovascular disease and history of congestive heart failure. 4. Chronic obstructive pulmonary disease. PLAN: Continue IV fluids and insulin. Endocrinology followup with Dr. Carrillo. The patient is medically stable for transfer to the medical-surgical floor. Physical therapy and social work for discharge planning. CLAIR Hay MD
[2018-04-01] MEDS: Sodium Chloride 0.9% 1,000 ML IV SCH ×2 (05:41→16:55)
[2018-04-01 06:56] LABS: BASO # 0.02 K/mm3 (0.0-2.0); BASO % 0.5 % (0.0-3.0); EOS # 0.2 (0.0-0.7); EOS % 4.8 % (1.5-5.0); GRAN # 1.74 (1.4-6.5); GRAN % 41.8 % (50.0-68.0); HEMOGLOBIN 10.1 g/dL (12.0-16.0); LYMPH # 1.9 (1.2-3.4); LYMPH % 44.5 % (22.0-35.0); MEAN CELL VOLUME 86.4 fl (80.0-105.0); MEAN CORPUSCULAR HEMOGLOBIN 28.5 pg (25.0-35.0); MEAN PLATELET VOLUME 9.7 fl (7.0-11.0); MONO # 0.4 (0.1-0.6); MONO % 8.4 % (1.0-6.0); RBC 3.54 10^6/uL (3.5-6.1); RED CELL DISTRIBUTION WIDTH 13.3 % (11.5-14.5); WHITE BLOOD COUNT 4.2 10^3/ul (4.5-11.0)
[2018-04-01 07:44] LABS: ALBUMIN 3.1 g/dL (3.0-4.8); ALT/SGPT 26 U/L (7-56); AST/SGOT 17 U/L (14-36); BLOOD UREA NITROGEN 12 mg/dL (7-21); GFR NON-AFRICAN AMERICAN > 60
[2018-04-01] MEDS: Insulin Lispro (humaLOG) LOW Coverage SC SCH ×4 (09:19→21:36)
[2018-04-01] MEDS: Insulin Lispro 1 UNITS/0.01 ML SC SCH ×3 (09:19→18:05)
[2018-04-01] MEDS: Venlafaxine 75 mg ER Cap PO SCH ×3 (10:23→18:05)
[2018-04-01] MEDS: Pantoprazole 40 mg EC Tab PO SCH (10:23)
--- NOTE | 2018-04-01 17:53 | PN ---
DATE: 04/01/2018 ENDO FOLLOWUP NOTE LOCATION: In room 370. She was in ICU, transferred to 370. SUBJECTIVE: This is a 63-year-old female with recent uncontrolled type 1 insulin-dependent diabetes, now being followed closely for metabolic management. She presented here with marked hyperglycemic accelerations and concomitant diabetic ketoacidosis and received intensive insulin therapy with an insulin drip infusion and vigorous IV hydration as given. Her oral intake remains variable at this time. The glucose values are fluctuating and have ranged from 212 to 231 and 280 mg/dL. Her chemistry showed a BUN of 17, sodium 136, potassium 4.5, chloride 107, CO2 of 18, glucose 291 and creatinine 1. So at this time, we will continue the modified basal and bolus insulin regimen and increase the Levemir to 20 units subcu at bedtime daily to start tonight. We will also increase the Humalog to 8 units subcu t.i.d. before meals to start today. We will modify the coverage scale to obviate hypoglycemia and detailed orders have been given. We will follow. Polly Carrillo MD
--- NOTE | 2018-04-01 19:40 | PN ---
DATE: 04/01/2018 SUBJECTIVE: Patient is resting comfortably. There are no complaints of chest pain or shortness of breath. Patient has been transferred to the medical surgical floor from the intensive care unit without complications. PHYSICAL EXAMINATION: VITAL SIGNS: Blood pressure 122/75, pulse 60, temperature 97.6, and respiratory rate 16. LUNGS: Clear. HEART: Regular rate and rhythm. ABDOMEN: Soft, nontender. Bowel sounds are normoactive. EXTREMITIES: Without cyanosis, clubbing, or edema. NEUROLOGIC: Patient is awake and oriented x3 without focal, sensory, or motor deficits. SKIN: Warm and dry. IMPRESSION: 1. Diabetic ketoacidosis. 2. Type 1 diabetes mellitus. 3. Hypertension, hypertensive cardiovascular disease, history of congestive heart failure. 4. Chronic obstructive pulmonary disease. PLAN: Continue IV fluids and insulin. Endocrinology followup with Dr. Cole. Physical therapy and social work with discharge planning. CLAIR Hay MD
[2018-04-01] MEDS: Insulin Detemir 100 units/ml Vial (Levemir) SC SCH (21:36)
[2018-04-02] MEDS: Sodium Chloride 0.9% 1,000 ML IV SCH ×3 (02:00→22:16)
[2018-04-02 07:08] LABS: BASO # 0.02 K/mm3 (0.0-2.0); BASO % 0.5 % (0.0-3.0); EOS # 0.2 (0.0-0.7); EOS % 5.4 % (1.5-5.0); GRAN # 1.8 (1.4-6.5); GRAN % 44.6 % (50.0-68.0); HEMOGLOBIN 10.5 g/dL (12.0-16.0); LYMPH # 1.7 (1.2-3.4); LYMPH % 41.3 % (22.0-35.0); MEAN CELL VOLUME 85.6 fl (80.0-105.0); MEAN CORPUSCULAR HEMOGLOBIN 28.5 pg (25.0-35.0); MEAN CORPUSCULAR HGB CONC 33.2 g/dl (31.0-37.0); MEAN PLATELET VOLUME 9.9 fl (7.0-11.0); MONO # 0.3 (0.1-0.6); MONO % 8.2 % (1.0-6.0); RBC 3.69 10^6/uL (3.5-6.1); RED CELL DISTRIBUTION WIDTH 13.3 % (11.5-14.5)
[2018-04-02 07:51] LABS: ALBUMIN 3.2 g/dL (3.0-4.8); ALT/SGPT 22 U/L (7-56); AST/SGOT 23 U/L (14-36); BLOOD UREA NITROGEN 11 mg/dL (7-21); CALCIUM 8.2 mg/dL (8.4-10.5); GFR NON-AFRICAN AMERICAN > 60
[2018-04-02] MEDS: Insulin Lispro 1 UNITS/0.01 ML SC SCH ×3 (09:53→17:39)
[2018-04-02] MEDS: Insulin Lispro (humaLOG) LOW Coverage SC SCH ×4 (09:53→22:13)
[2018-04-02] MEDS: Pantoprazole 40 mg EC Tab PO SCH (09:59)
[2018-04-02] MEDS: Venlafaxine 75 mg ER Cap PO SCH ×3 (10:39→17:39)
--- NOTE | 2018-04-02 11:12 | CP.PCM.PN ---
Subjective - Date & Time of Evaluation Date of Evaluation: 04/02/18 Time of Evaluation: 10:50 - Subjective Subjective: OOB in chair, NAD Objective - Vital Signs/Intake and Output Vital Signs (last 24 hours): Temp Pulse Resp BP Pulse Ox 98.2 F 90 20 126/64 100 04/02/18 06:00 04/02/18 09:52 04/02/18 06:00 04/02/18 09:52 04/02/18 06:00 Intake and Output: 04/02/18 04/02/18 06:59 18:59 Intake Total 2000 Output Total 3800 Balance -1800 - Medications Medications: Current Medications Atorvastatin Calcium (Lipitor) 20 mg PO DAILY [facility] Last Admin: 04/02/18 09:52 Dose: 20 mg Benzonatate (Tessalon Perles) 100 mg PO Q6H PRN PRN Reason: Cough Last Admin: 03/31/18 17:53 Dose: 100 mg Carvedilol (Coreg) 25 mg PO BID [facility] Last Admin: 04/02/18 09:52 Dose: 25 mg Clopidogrel Bisulfate (Plavix) 75 mg PO DAILY [facility] Last Admin: 04/02/18 09:52 Dose: 75 mg Dextrose (Dextrose 50% Inj) 0 ml IV STAT PRN; Protocol PRN Reason: Hypoglycemia Protocol Gabapentin (Neurontin) 100 mg PO TID [facility]; Protocol Last Admin: 04/02/18 09:54 Dose: 100 mg Heparin Sodium (Porcine) (Heparin) 5,000 units SC Q8 [facility] Last Admin: 04/02/18 05:49 Dose: Not Given Dextrose (Dextrose 5% In Water 1000 Ml) 1,000 mls @ 0 mls/hr IV .Q0M PRN; Protocol PRN Reason: Hypoglycemia Protocol Sodium Chloride (Sodium Chloride 0.9%) 1,000 mls @ 100 mls/hr IV .Q10H [facility] Last Admin: 04/02/18 02:00 Dose: 100 mls/hr Insulin Detemir (Levemir) 20 unit SC HS [facility] Last Admin: 04/01/18 21:36 Dose: 20 unit Insulin Human Lispro (Humalog Low) 0 units SC ACHS [facility] Last Admin: 04/02/18 09:53 Dose: 3 u Insulin Human Lispro (Humalog) 8 units SC AC [facility] Last Admin: 10/19/18 09:53 Dose: 8 u Losartan Potassium (Cozaar) 50 mg PO DAILY [facility] Last Admin: 04/02/18 09:52 Dose: 50 mg Pantoprazole Sodium (Protonix Ec Tab) 40 mg PO ACB [facility] Last Admin: 04/02/18 09:59 Dose: 40 mg Topiramate (Topamax) 150 mg PO HS [facility]; Protocol Last Admin: 04/01/18 21:35 Dose: 150 mg Venlafaxine HCl (Effexor Xr) 75 mg PO TID [facility] Last Admin: 04/02/18 10:39 Dose: 75 mg - Labs Labs: 04/02/18 06:30 04/02/18 06:30 PT 11.6 SECONDS (9.4-12.5) 03/30/18 10:25 INR 1.01 03/30/18 10:25 APTT 31.4 Seconds (25.1-36.5) 04/01/18 15:30 - Respiratory Exam Respiratory Exam: Clear to Ausculation Bilateral, NORMAL BREATHING PATTERN - Cardiovascular Exam Cardiovascular Exam: REGULAR RHYTHM - GI/Abdominal Exam GI & Abdominal Exam: Soft, Normal Bowel Sounds - Extremities Exam Extremities Exam: Normal Inspection - Neurological Exam Neurological Exam: Alert, Awake - Skin Skin Exam: Dry, Warm Assessment and Plan (1) DKA (diabetic ketoacidoses) Status: Acute (2) COPD (chronic obstructive pulmonary disease) Status: Chronic (3) Type I diabetes mellitus Status: Chronic - Assessment and Plan (Free Text) Plan: continue IV fluid, insulin, endocrinology follow-up, for DC planning
[2018-04-02] MEDS: Insulin Detemir 100 units/ml Vial (Levemir) SC SCH (21:54)
--- NOTE | 2018-04-03 00:16 | PN ---
DATE: 04/02/2018 LOCATION: Room 370. This is a 63-year-old female with recent uncontrolled type 1 insulin-dependent diabetes, now being followed closely for metabolic management. Her glycemic levels are fluctuating, but improved as her oral intake has improved accordingly. Her glucose values today have ranged from 268 to 295 and 287 mg/dL. Her chemistry showed a BUN of 11, sodium 136, potassium 3.9, chloride 108, CO2 of 23, glucose 310 and creatinine 0.9. So at this time, we will modify once again her basal and bolus insulin regimen and increase the Humalog to 12 units subcu t.i.d. before meals to start today. We will also modify her basal insulin and increase the Levemir to 26 units subcu at bedtime daily to start tomorrow night as ordered. We will continue the low-dose correction scale using Humalog insulin as given. We will follow and advise accordingly. Polly Carrillo MD
[2018-04-03 08:20] LABS: BASO # 0.02 K/mm3 (0.0-2.0); BASO % 0.5 % (0.0-3.0); EOS # 0.2 (0.0-0.7); EOS % 5.4 % (1.5-5.0); GRAN # 1.82 (1.4-6.5); GRAN % 49.7 % (50.0-68.0); HEMOGLOBIN 10.8 g/dL (12.0-16.0); LYMPH # 1.4 (1.2-3.4); LYMPH % 36.8 % (22.0-35.0); MEAN CELL VOLUME 85.8 fl (80.0-105.0); MEAN CORPUSCULAR HGB CONC 33.9 g/dl (31.0-37.0); MEAN PLATELET VOLUME 9.7 fl (7.0-11.0); MONO # 0.3 (0.1-0.6); MONO % 7.6 % (1.0-6.0); RBC 3.72 10^6/uL (3.5-6.1); RED CELL DISTRIBUTION WIDTH 13.4 % (11.5-14.5); WHITE BLOOD COUNT 3.7 10^3/ul (4.5-11.0)
[2018-04-03 08:33] LABS: ALBUMIN 3.2 g/dL (3.0-4.8); ALT/SGPT 21 U/L (7-56); AST/SGOT 19 U/L (14-36); BLOOD UREA NITROGEN 10 mg/dL (7-21); CALCIUM 8.5 mg/dL (8.4-10.5); GFR NON-AFRICAN AMERICAN > 60
--- NOTE | 2018-04-03 08:45 | CP.PCM.PN ---
Subjective - Date & Time of Evaluation Date of Evaluation: 04/03/18 Time of Evaluation: 08:20 - Subjective Subjective: resting comfortably, NAD Objective - Vital Signs/Intake and Output Vital Signs (last 24 hours): Temp Pulse Resp BP Pulse Ox 98.2 F 82 19 134/62 99 04/02/18 19:35 04/02/18 19:35 04/02/18 19:35 04/02/18 19:35 04/02/18 19:35 - Medications Medications: Current Medications Atorvastatin Calcium (Lipitor) 20 mg PO DAILY [facility] Last Admin: 04/02/18 09:52 Dose: 20 mg Benzonatate (Tessalon Perles) 100 mg PO Q6H PRN PRN Reason: Cough Last Admin: 03/31/18 17:53 Dose: 100 mg Carvedilol (Coreg) 25 mg PO BID [facility] Last Admin: 04/02/18 17:38 Dose: 25 mg Clopidogrel Bisulfate (Plavix) 75 mg PO DAILY [facility] Last Admin: 04/02/18 09:52 Dose: 75 mg Dextrose (Dextrose 50% Inj) 0 ml IV STAT PRN; Protocol PRN Reason: Hypoglycemia Protocol Gabapentin (Neurontin) 100 mg PO TID [facility]; Protocol Last Admin: 04/02/18 17:39 Dose: 100 mg Heparin Sodium (Porcine) (Heparin) 5,000 units SC Q8 [facility] Last Admin: 04/03/18 05:31 Dose: Not Given Dextrose (Dextrose 5% In Water 1000 Ml) 1,000 mls @ 0 mls/hr IV .Q0M PRN; Protocol PRN Reason: Hypoglycemia Protocol Sodium Chloride (Sodium Chloride 0.9%) 1,000 mls @ 100 mls/hr IV .Q10H [facility] Last Admin: 04/02/18 22:16 Dose: 100 mls/hr Insulin Detemir (Levemir) 26 unit SC HS [facility] Insulin Human Lispro (Humalog Low) 0 units SC ACHS [facility] Last Admin: 04/02/18 22:13 Dose: Not Given Insulin Human Lispro (Humalog) 12 units SC AC [facility] Losartan Potassium (Cozaar) 50 mg PO DAILY [facility] Last Admin: 04/02/18 09:52 Dose: 50 mg Pantoprazole Sodium (Protonix Ec Tab) 40 mg PO ACB [facility] Last Admin: 04/02/18 09:59 Dose: 40 mg Topiramate (Topamax) 150 mg PO HS [facility]; Protocol Last Admin: 04/02/18 21:52 Dose: 150 mg Venlafaxine HCl (Effexor Xr) 75 mg PO TID [facility] Last Admin: 04/02/18 17:39 Dose: 75 mg - Labs Labs: 04/03/18 08:00 04/03/18 08:00 PT 11.6 SECONDS (9.4-12.5) 03/30/18 10:25 INR 1.01 03/30/18 10:25 APTT 28.1 Seconds (25.1-36.5) 04/02/18 16:11 - Respiratory Exam Respiratory Exam: Clear to Ausculation Bilateral, NORMAL BREATHING PATTERN - Cardiovascular Exam Cardiovascular Exam: Tachycardia - GI/Abdominal Exam GI & Abdominal Exam: Soft, Normal Bowel Sounds - Extremities Exam Extremities Exam: Normal Inspection - Neurological Exam Neurological Exam: Alert, Awake Assessment and Plan (1) DKA (diabetic ketoacidoses) Status: Acute (2) COPD (chronic obstructive pulmonary disease) Status: Chronic (3) Type I diabetes mellitus Status: Chronic - Assessment and Plan (Free Text) Plan: continue IV fluid, insulin coverage, endocrine follow-up Dr. Carrillo, SW for DC planning
[2018-04-03] MEDS: Insulin Lispro (humaLOG) LOW Coverage SC SCH ×4 (08:49→21:51)
[2018-04-03] MEDS: Pantoprazole 40 mg EC Tab PO SCH (08:49)
[2018-04-03] MEDS: Insulin Lispro 1 UNITS/0.01 ML SC SCH ×3 (08:51→17:21)
[2018-04-03] MEDS: Venlafaxine 75 mg ER Cap PO SCH ×3 (09:50→17:28)
--- NOTE | 2018-04-03 15:15 | PN ---
DATE: 04/03/2018 SUBJECTIVE: This is a 63-year-old female with recent uncontrolled type 1 insulin-dependent diabetes presenting here with marked hyperglycemic accelerations and diabetic ketoacidosis and has since then improved clinically and metabolically as noted thereof. Her glucose values overnight are still fluctuating and today's glucose level was 304 before breakfast and 293 at bedtime last night. Her chemistries today showed a BUN of 10, sodium 139, potassium 3.7, chloride 107, CO2 26, glucose 290 and creatinine 0.8. So at this time, we will modify once again her basal and bolus insulin regimen and increase the Levemir to 30 units subcu at bedtime daily to start tonight. We will continue the Humalog given as 12 units subcu t.i.d. before meals to start today as given. We will titrate incrementally as indicated to optimize metabolic control. We will obtain serial chemistries and supplement accordingly as needed. We will follow. Polly Carrillo MD
[2018-04-03] MEDS: Insulin Detemir 100 units/ml Vial (Levemir) SC SCH (21:52)
[2018-04-03] MEDS ORDERED: Insulin Detemir 100 units/ml Vial (Levemir) SC SCH (22:00)
[2018-04-04] MEDS: Sodium Chloride 0.9% 1,000 ML IV SCH (01:10)
[2018-04-04 07:48] LABS: BASO # 0.02 K/mm3 (0.0-2.0); BASO % 0.5 % (0.0-3.0); EOS # 0.2 (0.0-0.7); EOS % 6.1 % (1.5-5.0); GRAN # 1.69 (1.4-6.5); GRAN % 44.9 % (50.0-68.0); HEMOGLOBIN 10.6 g/dL (12.0-16.0); LYMPH # 1.6 (1.2-3.4); LYMPH % 41.6 % (22.0-35.0); MEAN CELL VOLUME 86.8 fl (80.0-105.0); MEAN CORPUSCULAR HEMOGLOBIN 28.6 pg (25.0-35.0); MEAN CORPUSCULAR HGB CONC 32.9 g/dl (31.0-37.0); MEAN PLATELET VOLUME 10.2 fl (7.0-11.0); MONO # 0.3 (0.1-0.6); MONO % 6.9 % (1.0-6.0); RBC 3.71 10^6/uL (3.5-6.1); RED CELL DISTRIBUTION WIDTH 13.5 % (11.5-14.5); WHITE BLOOD COUNT 3.8 10^3/ul (4.5-11.0)
[2018-04-04] MEDS: Insulin Lispro (humaLOG) LOW Coverage SC SCH ×4 (08:06→23:04)
[2018-04-04 08:11] LABS: ALBUMIN 3.2 g/dL (3.0-4.8); ALT/SGPT 28 U/L (7-56); AST/SGOT 26 U/L (14-36); BLOOD UREA NITROGEN 8 mg/dL (7-21); CALCIUM 8.5 mg/dL (8.4-10.5); GFR NON-AFRICAN AMERICAN > 60
[2018-04-04] MEDS: Insulin Lispro 1 UNITS/0.01 ML SC SCH ×3 (08:12→17:22)
[2018-04-04] MEDS: Pantoprazole 40 mg EC Tab PO SCH (08:13)
[2018-04-04] MEDS: Venlafaxine 75 mg ER Cap PO SCH ×3 (11:05→17:19)
[2018-04-04 17:32] VITALS: TEMP 98.2
--- NOTE | 2018-04-04 21:31 | PN ---
DATE: 04/04/2018 ENDOCRINOLOGY FOLLOWUP NOTE LOCATION: Room 370. SUBJECTIVE: This is a 63-year-old female with recent uncontrolled type 1 insulin-dependent diabetes, now being followed closely for metabolic management. Her oral intake remains variable at this time with suboptimal meal portions as noted. The repeat chemistries today showed a BUN of 8, sodium 138, potassium 3.8, chloride 108, CO2 of 26, glucose 234, and creatinine 0.8. Her glucose values have ranged from 70 to 257 and 304 mg/dL. So, at this time, we will continue the same basal and bolus insulin regimen to allow for dose equilibration and to keep her on the Humalog given as 8 units t.i.d. before meals as ordered. We will continue the Levemir given as 30 units subcu at bedtime daily as given. We will continue also the low-dose correction scale using Humalog insulin as ordered. We will obtain serial chemistries and supplement accordingly as needed. We will follow. Polly Carrillo MD
[2018-04-04] MEDS ORDERED: Insulin Detemir 100 units/ml Vial (Levemir) SC ONE (22:59)
[2018-04-04] MEDS: Insulin Detemir 100 units/ml Vial (Levemir) SC SCH (23:05)
[2018-04-05] MEDS: Sodium Chloride 0.9% 1,000 ML IV SCH (00:25)
[2018-04-05] MEDS: Pantoprazole 40 mg EC Tab PO SCH (07:55)
[2018-04-05] MEDS: Insulin Lispro (humaLOG) LOW Coverage SC SCH (07:55)
[2018-04-05 08:16] VITALS: BP 138/69; PULSE 67; RESP 20; O2SAT 95
[2018-04-05] MEDS: Venlafaxine 75 mg ER Cap PO SCH (09:14)
[2018-04-05] MEDS: Insulin Lispro 1 UNITS/0.01 ML SC SCH (09:14)
[2018-04-05] MEDS ORDERED: Pneumococcal 23-Valent Vaccine IM ONE (10:25)
--- NOTE | 2018-04-05 14:58 | PN ---
DATE: 04/05/2018 LOCATION: Room 370. This is a 63-year-old female with recent uncontrolled type 1 insulin-dependent diabetes, now being followed closely for metabolic management. Her glycemic levels are fluctuating, but much improved at this time and the glucose values have ranged from 93-128 and 133 mg/dL. Her latest chemistry showed a BUN of 8, sodium 138, potassium 3.8, chloride 108, CO2 of 26, glucose 234 and creatinine 0.8. So at this time, we will continue the present basal and bolus insulin regimen as given with Levemir given as 30 units subcu at bedtime daily and Humalog given as 8 units t.i.d. before meals as ordered. She will follow with her medical doctor for ongoing outpatient diabetic and medical management.. Polly Carrillo MD
[2018-04-05] MEDS ORDERED: Insulin Detemir 100 units/ml Vial (Levemir) SC ONE (22:48)
--- NOTE | 2018-04-06 05:08 | DS ---
HOSPITAL COURSE: The patient is a 63-year-old female with a history of type 1 diabetes mellitus, admitted through the emergency department on 03/30/2018 with recurrent diabetic ketoacidosis. The patient was admitted to the intensive care unit, started on IV hydration and intravenous insulin. Endocrinology consultation was called with Dr. Polly Carrillo. The patient had an uneventful hospital course and is now medically stable for discharge. PHYSICAL EXAMINATION: VITAL SIGNS: Blood pressure 138/69, temperature 98.2, pulse 67, respiratory rate 20. LUNGS: Clear. HEART: Regular rate and rhythm. ABDOMEN: Soft and nontender. Bowel sounds are normoactive. EXTREMITIES: Without cyanosis, clubbing or edema. NEUROLOGICAL: The patient is awake and oriented x3 without focal sensory or motor deficits. SKIN: Warm and dry. IMPRESSION: 1. Recurrent diabetic ketoacidosis. 2. Type 1 diabetes mellitus. 3. Hypertension, hypertensive cardiovascular disease, history of congestive heart failure. 4. Chronic obstructive pulmonary disease. 5. Schizoaffective disorder. PLAN: The patient will be discharged today on the following medications: Levemir 30 mg h.s. and NovoLog 8 units subcutaneously before each meal as well as losartan 50 mg daily, Effexor XR 75 mg 2 times daily, Neurontin 100 mg 3 times daily, Plavix 75 mg daily, and Topamax 100 mg twice daily. The patient will be maintained on a diabetic diet. Activities ad libitum. She will be followed up as an outpatient within the next 1-2 weeks. CLAIR Hay MD
== END 2018-04-05 13:23 | disposition home or self-care (01) | DRG 638 ==
LOC: ED 09:47 → ERH 13:52 → CCU 16:04 → 3RSO 03-31 21:18
PROVIDERS: ADMIT Internal Medicine; ATTEND Internal Medicine
PROC: 3E0234Z Introduction of Serum, Toxoid and Vaccine into Muscle, Percutaneous Approach (ICD-10-PCS; principal; 2018-04-05)
DX: E10.10 Type 1 diabetes mellitus with ketoacidosis without coma (principal); E87.1 Hypo-osmolality and hyponatremia; H54.8 Legal blindness, as defined in USA; J44.9 Chronic obstructive pulmonary disease, unspecified; Z79.4 Long term (current) use of insulin; Z86.73 Personal history of transient ischemic attack (TIA), and cerebral infarction without residual deficits; E86.0 Dehydration; I67.9 Cerebrovascular disease, unspecified; F20.9 Schizophrenia, unspecified; F31.9 Bipolar disorder, unspecified; E78.5 Hyperlipidemia, unspecified; E10.319 Type 1 diabetes mellitus with unspecified diabetic retinopathy without macular edema; E10.42 Type 1 diabetes mellitus with diabetic polyneuropathy; E10.21 Type 1 diabetes mellitus with diabetic nephropathy; E10.649 Type 1 diabetes mellitus with hypoglycemia without coma; E10.51 Type 1 diabetes mellitus with diabetic peripheral angiopathy without gangrene; I11.0 Hypertensive heart disease with heart failure; I50.9 Heart failure, unspecified; Z90.49 Acquired absence of other specified parts of digestive tract; Z90.710 Acquired absence of both cervix and uterus; Z23 Encounter for immunization

== ENCOUNTER 2018-09-06 18:04 | Inpatient (IN) | payer MEDICARE, OTHER ==
[2018-09-06] MEDS ORDERED: Sodium Chloride 0.9% 1,000 ML IV STA ×2 (18:54→19:52)
--- NOTE | 2018-09-06 19:01 | ED PDOC ---
Arrival/HPI - General Time Seen by Provider: 09/06/18 18:53 Historian: Patient, Family - History of Present Illness Narrative History of Present Illness (Text): 09/06/18 18:58 63 y/o female, pmh including htn/hld/dmI/copd, allergic to benadryl/aspirin, bi ba for elevated glucose over 500 x 1 hour. Pt. incidentally to have glucose over 500 at home from finger stick, had an episode of vomiting which resolved, no abdominal or pelvic pain, no urinary symptoms, stated that she feels fine now, no night sweat, no dizziness, no change in vision, no chest pain or palpitation, no headache/dizziness, no other medical or psychological complaints. Past Medical History - Provider Review Nursing Documentation Reviewed: Yes - Infectious Disease Hx of Infectious Diseases: None - Tetanus Immunization Tetanus Immunization: Unknown - Cardiac Hx Cardiac Disorders: No Hx Hypertension: Yes - Pulmonary Hx Chronic Obstructive Pulmonary Disease (COPD): Yes - Neurological HX Cerebrovascular Accident: Yes (left sided weakness, 1979) - HEENT Hx HEENT Disorder: Yes (eyeglasses) Hx Blind: Yes (patient reports she is legally blind) - Renal Hx Renal Failure: No - Endocrine/Metabolic Hx Diabetes Mellitus Type 1: Yes - Hematological/Oncological Hx Blood Disorders: No Hx Cancer: No - Integumentary Other/Comment: multiple skin discolorations rle - Musculoskeletal/Rheumatological Hx Musculoskeletal Disorders: (left side weakness) Hx Back Pain: Yes Hx Falls: No Hx Unsteady Gait: Yes (walker) - Gastrointestinal Hx Gastrointestinal Disorders: No - Genitourinary/Gynecological Hx Genitourinary Disorders: No - Psychiatric Hx Psychophysiologic Disorder: Yes Hx Depression: Yes Hx Substance Use: No Other/Comment: no hx of bipolar or schizophrenia as per pt - Surgical History Hx Cholecystectomy: Yes Hx Hysterectomy: Yes Hx Orthopedic Surgery: Yes (NECK, L LEG,BACK) Other/Comment: cervical spine sx in pt uncertain what type of sx she had done, lower back sx insertion of rods - Anesthesia Hx Anesthesia: Yes Hx Anesthesia Reactions: No Hx Malignant Hyperthermia: No Family/Social History - Physician Review Nursing Documentation Reviewed: Yes Family/Social History: Unknown Family HX Smoking Status: Never Smoked Hx Alcohol Use: No Hx Substance Use: No Allergies/Home Meds Allergies/Adverse Reactions: Allergies aspirin Allergy (Verified 06/30/17 21:34) ANAPHYLAXIS diphenhydramine HCl [From Benadryl] Allergy (Verified 06/30/17 21:34) ANAPHYLAXIS trifluoperazine Allergy (Verified 06/30/17 21:34) ANAPHYLAXIS Home Medications: Home Meds Medication Instructions Recorded Confirmed Meloxicam [Mobic] 15 mg PO DAILY 03/30/18 03/30/18 Venlafaxine HCl [Venlafaxine HCl 75 mg PO TID 03/30/18 03/30/18 ER] Review of Systems - Review of Systems Constitutional: absent: Fatigue, Fevers Eyes: absent: Vision Changes ENT: absent: Hearing Changes Respiratory: absent: SOB, Cough Cardiovascular: absent: Chest Pain Gastrointestinal: Vomiting. absent: Abdominal Pain, Diarrhea, Nausea Genitourinary Female: absent: Dysuria, Frequency Skin: absent: Rash, Pruritis Neurological: absent: Headache, Dizziness Psychiatric: absent: Anxiety, Depression Physical Exam Vital Signs Reviewed: Yes Temperature: Afebrile Blood Pressure: Hypotensive Pulse: Tachycardic Respiratory Rate: Normal Appearance: Positive for: Well-Appearing, Non-Toxic, Comfortable Pain Distress: None Mental Status: Positive for: Alert and Oriented X 3 - Systems Exam Head: Present: Atraumatic, Normocephalic Pupils: Present: PERRL Extroacular Muscles: Present: EOMI Conjunctiva: Present: Normal Mouth: Present: Moist Mucous Membranes Neck: Present: Normal Range of Motion Respiratory/Chest: Present: Clear to Auscultation, Good Air Exchange. No: Respiratory Distress, Accessory Muscle Use Cardiovascular: Present: Regular Rate and Rhythm, Normal S1, S2. No: Murmurs Abdomen: Present: Normal Bowel Sounds. No: Tenderness, Distention, Peritoneal Signs, Rebound, Guarding, Rovsing's Sign Present, Ostomy Tubes, Mass/Organomegaly, Scars Back: Present: Normal Inspection. No: CVA Tenderness, Midline Tenderness, Paraspinal Tenderness, Pain with Leg Raise Upper Extremity: Present: Normal Inspection. No: Cyanosis, Edema Lower Extremity: Present: Normal Inspection. No: Edema Neurological: Present: GCS=15, CN II-XII Intact, Speech Normal, Motor Func Gross ly Intact, Normal Cerebellar Funct, Gait Normal, Memory Normal Skin: Present: Warm, Dry, Normal Color. No: Rashes Psychiatric: Present: Alert, Oriented x 3, Normal Insight, Normal Concentration Medical Decision Making ED Course and Treatment: 09/06/18 19:02 -labs -ekg -cxr -IVF -Observe and reassess 09/06/18 19:58 -EKG: NSR @ 98 BPM, no ST elevation or depression, no tall T, no T wave inversion. -Chest xray ER wet read: no active disease -Labs show no acute findings except Na 130 (hyperglycemia induced), BUN 30 and creatinine 1.6 (IVF 2000cc ordered), Anion gap 30 -Blood gas: Ph 7.15, HCO3 10.7 and CO2 29, metabolic acidosis -IVF/Insulin drip as per protocol ordered/ kayaxylate/bicarbonate ordered. -I discussed the case with ICU recreation specialist Dr. Eason, discussed about the case and agreed to consult this case and will take to ICU. -Paged out to the pmd DR. Padilla, pending for call back. 09/06/18 20:14 -I spoke to Dr. Socrates Padilla, discussed about the case/labs/radiology study, agreed to admit to ICU and routine consult with Dr. Polly Carrillo which I discussed. -I spoke to the front office medical assistant as well, they would come to evaluate the patient. - Critical Care Critical Care Minutes: 45 minutes Critical Care Time: Unstable Narrative Critical Care (Text): 09/06/18 20:01 Diabetic ketoacidosis, Dehydration, IVF, consults, admission, bed side monitoring, hyperkalemia treatment. - RAD Interpretation Radiology Orders: 09/06/18 18:54 HEAD W/O CONTRAST [CT] Stat Chest xray: no active disease Electronics Processor: Radiologist - EKG Interpretation EKG Interpretation (Text): 09/06/18 19:15 NSR @ 98 BPM, no ST elevation or depression, no T wave inversion. Interpreted by ED Physician: Yes Type: 12 lead EKG - Medication Orders Current Medication Orders: Sodium Chloride (Sodium Chloride 0.9%) 1,000 mls @ 999 mls/hr IV .Q1H1M STA Stop: 09/06/18 19:54 Discontinued Medications Famotidine (Pepcid) 20 mg IVP STAT STA Stop: 09/06/18 18:55 Metoclopramide HCl (Reglan) 10 mg IVP STAT STA Stop: 09/06/18 18:55 - PA / RADIOLOGIC TECHNOLOGIST MAMMOGRAM / Resident Statement MD/DO has reviewed & agrees with the documentation as recorded. Disposition/Present on Arrival - Present on Arrival Any Indicators Present on Arrival: No History of DVT/PE: No History of Uncontrolled Diabetes: Yes Urinary Catheter: No History of Decub. Ulcer: No History Surgical Site Infection Following: None - Disposition Have Diagnosis and Disposition been Completed?: Yes Diagnosis: DKA (diabetic ketoacidoses), Dehydration, Hyperkalemia Disposition: HOSPITALIZED Disposition Time: 20:02 Patient Plan: Admission, ICU Patient Problems: Current Active Problems Problem Status Onset DKA (diabetic ketoacidoses) Acute Dehydration Acute Hyperkalemia Acute Condition: GUARDED
[2018-09-06 19:19] LABS: BASO # 0.02 K/mm3 (0.0-2.0); BASO % 0.2 % (0.0-3.0); EOS % 0.2 % (1.5-5.0); HEMOGLOBIN 11.4 g/dL (12.0-16.0); LYMPH # 1.4 (1.2-3.4); LYMPH % 16.1 % (22.0-35.0); MEAN CELL VOLUME 88.7 fl (80.0-105.0); MEAN CORPUSCULAR HEMOGLOBIN 29.3 pg (25.0-35.0); MEAN PLATELET VOLUME 10.1 fl (7.0-11.0); MONO # 0.2 (0.1-0.6); MONO % 2.6 % (1.0-6.0); RBC 3.89 10^6/uL (3.5-6.1); RED CELL DISTRIBUTION WIDTH 13.2 % (11.5-14.5); WHITE BLOOD COUNT 8.4 10^3/uL (4.5-11.0)
[2018-09-06 19:20] LABS: VENOUS BLOOD GAS BASE EXCESS -14.6 mmol/L (0.0-2.0); VENOUS BLOOD GAS PO2 41 mm/Hg (30-55); VENOUS BLOOD PH 7.15 (7.32-7.43)
[2018-09-06 19:28] LABS: INR 1.07; PARTIAL THROMBOPLASTIN TIME 31.7 Seconds (26.9-38.3); PROTHROMBIN TIME 11.9 SECONDS (9.4-12.5)
[2018-09-06 19:39] LABS: ARTERIAL BLOOD GAS HCO3 10.1 mmol/L (21-28); ARTERIAL BLOOD GAS O2 SAT 98.3 % (95-98); ARTERIAL BLOOD GAS PCO2 29 mm/Hg (35-45); ARTERIAL BLOOD GAS PH 7.15 (7.35-7.45)
[2018-09-06] MEDS ORDERED: Insulin Regular 100 UNITS in Sodium Chloride 0.9% 99 ML IV PRN (19:41)
[2018-09-06] MEDS ORDERED: Dextrose 50% SYRINGE Inj (50 ml) IV PRN (19:41)
[2018-09-06 19:48] LABS: ALB/GLOB RATIO 1.2 (1.1-1.8); ALBUMIN 4.5 g/dL (3.0-4.8); CALCIUM 9.3 mg/dL (8.4-10.5)
[2018-09-06] MEDS ORDERED: Sodium Bicarbonate (8.4%) 50 Meq Syringe IVP ONE ×2 (19:55→20:13)
[2018-09-06] MEDS ORDERED: Sodium Chloride 0.9% 1,000 ML IV SCH ×2 (21:00→23:45)
--- NOTE | 2018-09-06 21:20 | CP.PCM.CON ---
<Ba Bhakta - Last Filed: 09/06/18 22:58> History of Present Illness - History of Present Illness History of Present Illness: Dr Bhakta ICU consult note 63F with a PMHx of DM, HTN dementia presents to the ED with altered mental status, sent in by PMD Dr Padilla for DKA. Pt was found to have a random glucose of >700. Pt is a poor historian, cannot recall the reason why she was brought in. Pt was brought in by ambulance with her sister accompanying her. Pt had one episode of vomiting at home and also had increased thirst. Pt has had simialr episodes of this before, has been most recently admitted for DKA at [facility] in [place], Pt also had a hx of medication non compliance. ROS: Pos increased thirst, vomiting x1, meds non compliance, hx of DKA, Neg CP , SOB, FC , PMHx: HTN, CAD, DM, Bipolar, Schizophrenia PSx:L/s Laminectomy w/ fusion, cholecystectomy, hysterectomy and cesar salp- oopherectomy FHx: denies SocHx: denies alc etoh drugs Allergies: ASA Benadryl, Stelazine, Cortizone Review of Systems - Review of Systems Systems not reviewed;Unavailable: Altered Mental Status (12 point ROS was attempted but was limited due to dementia) Past Patient History - Infectious Disease Hx of Infectious Diseases: None - Tetanus Immunizations Tetanus Immunization: Unknown - Past Social History Smoking Status: Never Smoked - CARDIAC Hx Cardiac Disorders: No Hx Hypertension: Yes - PULMONARY Hx Chronic Obstructive Pulmonary Disease (COPD): Yes - NEUROLOGICAL HX Cerebrovascular Accident: Yes (left sided weakness, 1979) - HEENT Hx HEENT Problems: Yes (eyeglasses) Hx Blind: Yes (patient reports she is legally blind) - RENAL Hx Renal Failure: No - ENDOCRINE/METABOLIC Hx Diabetes Mellitus Type 1: Yes - HEMATOLOGICAL/ONCOLOGICAL Hx Blood Disorders: No Hx Cancer: No - INTEGUMENTARY Other/Comment: multiple skin discolorations rle - MUSCULOSKELETAL/RHEUMATOLOGICAL Hx Musculoskeletal Disorders: (left side weakness) Hx Back Pain: Yes Hx Falls: No Hx Unsteady Gait: Yes (walker) - GASTROINTESTINAL Hx Gastrointestinal Disorders: No - GENITOURINARY/GYNECOLOGICAL Hx Genitourinary Disorders: No - PSYCHIATRIC Hx Psychophysiologic Disorder: Yes Hx Depression: Yes Hx Substance Use: No Other/Comment: no hx of bipolar or schizophrenia as per pt - SURGICAL HISTORY Hx Cholecystectomy: Yes Hx Hysterectomy: Yes Hx Orthopedic Surgery: Yes (NECK, L LEG,BACK) Other/Comment: cervical spine sx in pt uncertain what type of sx she had done, lower back sx insertion of rods - ANESTHESIA Hx Anesthesia: Yes Hx Anesthesia Reactions: No Hx Malignant Hyperthermia: No Meds Allergies/Adverse Reactions: Allergies Allergy/AdvReac Type Severity Reaction Status Date / Time aspirin Allergy ANAPHYLAXIS Verified 06/30/17 21:34 diphenhydramine HCl Allergy ANAPHYLAXIS Verified 06/30/17 21:34 [From Benadryl] trifluoperazine Allergy ANAPHYLAXIS Verified 06/30/17 21:34 - Medications Medications: Current Medications Atorvastatin Calcium (Lipitor) 20 mg PO DIN LELIA Carvedilol (Coreg) 25 mg PO BID LELIA Clopidogrel Bisulfate (Plavix) 75 mg PO DAILY [facility] Dextrose (Dextrose 50% Inj) 0 ml IV STAT PRN; Protocol PRN Reason: Hypoglycemia Protocol Heparin Sodium (Porcine) (Heparin) 5,000 units SC Q8 LELIA; Protocol Dextrose (Dextrose 5% In Water 1000 Ml) 1,000 mls @ 0 mls/hr IV .Q0M PRN; Protocol PRN Reason: Hypoglycemia Protocol Insulin Human Regular 100 (units/ Sodium Chloride) 100 mls @ 0 mls/hr IV .Q0M PRN; Protocol PRN Reason: Other Last Admin: 09/06/18 20:12 Dose: 12 mls/hr Sodium Chloride (Sodium Chloride 0.9%) 1,000 mls @ 125 mls/hr IV .Q8H [facility] Losartan Potassium (Cozaar) 50 mg PO DAILY LELIA Pantoprazole Sodium (Protonix Ec Tab) 40 mg PO ACB LELIA Physical Exam - Constitutional Appears: Non-toxic, No Acute Distress, Older Than Stated Age - Eye Exam Eye Exam: EOMI, Normal appearance. absent: Scleral icterus - ENT Exam ENT Exam: Mucous Membranes Moist, Normal Exam - Respiratory Exam Respiratory Exam: Clear to Auscultation Bilateral, NORMAL BREATHING PATTERN. absent: Rhonchi, Wheezes - Cardiovascular Exam Cardiovascular Exam: RRR, +S1, +S2 - GI/Abdominal Exam GI & Abdominal Exam: Normal Bowel Sounds. absent: Firm, Guarding, Rebound, Tenderness - Extremities Exam Extremities exam: Positive for: normal capillary refill, normal inspection, pedal pulses present. Negative for: pedal edema Additional comments: no ulcers seen on feet - Neurological Exam Neurological exam: Altered (inappropriate responses, alert to self), CN II-XII Intact (L facial palsy noted) Results - Vital Signs Recent Vital Signs: Last Vital Signs Temp 98 F 09/06/18 18:25 Pulse 111 H 09/06/18 19:51 Resp 18 09/06/18 19:51 BP 127/52 L 09/06/18 19:51 Pulse Ox 99 09/06/18 19:51 - Labs Result Diagrams: 09/06/18 18:45 09/06/18 18:45 Labs: Laboratory Results - last 24 hr 09/06/18 09/06/18 09/06/18 18:13 18:45 18:45 WBC 8.4 RBC 3.89 Hgb 11.4 L Hct 34.5 L MCV 88.7 MCH 29.3 MCHC 33.0 RDW 13.2 Plt Count 223 MPV 10.1 Neut % (Auto) 80.9 H Lymph % (Auto) 16.1 L Norton % (Auto) 2.6 Eos % (Auto) 0.2 L Baso % (Auto) 0.2 Lymph # (Auto) 1.4 Norton # (Auto) 0.2 Eos # (Auto) 0.0 Baso # (Auto) 0.02 Absolute Neuts (auto) 6.79 H PT INR APTT pCO2 pO2 HCO3 ABG pH ABG Total CO2 ABG O2 Saturation ABG Base Excess ABG Potassium VBG pH VBG pCO2 VBG HCO3 VBG Total CO2 VBG O2 Sat (Calc) VBG Base Excess VBG Potassium Glucose Lactate FiO2 Crit Value Called To Crit Value Called By Blood Gas Notified Time Sodium 130 L Potassium 5.5 H Chloride 93 L Carbon Dioxide 13 L Anion Gap 30 H BUN 37 H Creatinine 1.6 H Est GFR ( Amer) 39 Est GFR (Non-Af Amer) 32 POC Glucose (mg/dL) > 500 H* Random Glucose 700 H* D Calcium 9.3 Magnesium 2.3 H Total Bilirubin 0.5 AST 23 ALT 10 Alkaline Phosphatase 158 H D Total Protein 8.4 H Albumin 4.5 Globulin 3.9 Albumin/Globulin Ratio 1.2 Arterial Blood Potassium Venous Blood Potassium 09/06/18 09/06/1819 18:45 19:14 19:30 WBC RBC Hgb Hct MCV MCH MCHC RDW Plt Count MPV Neut % (Auto) Lymph % (Auto) Norton % (Auto) Eos % (Auto) Baso % (Auto) Lymph # (Auto) Norton # (Auto) Eos # (Auto) Baso # (Auto) Absolute Neuts (auto) PT 11.9 INR 1.07 APTT 31.7 pCO2 29 L pO2 41 94.0 HCO3 10.1 L ABG pH 7.15 L* ABG Total CO2 11.0 L ABG O2 Saturation 98.3 H ABG Base Excess -17.4 L ABG Potassium 5.0 VBG pH 7.15 L* VBG pCO2 39.0 L VBG HCO3 13.6 L VBG Total CO2 14.8 L VBG O2 Sat (Calc) 73.8 H VBG Base Excess -14.6 L VBG Potassium 5.5 H Glucose > 750 H* D 701 H* Lactate 2.3 H 1.5 FiO2 21.0 28.0 Crit Value Called To Tabitha tatum Crit Value Called By [facility] [id number] Blood Gas Notified Time 1918 1939 Sodium 130.0 L 130.0 L Potassium Chloride 90.0 L 94.0 L Carbon Dioxide Anion Gap BUN Creatinine Est GFR ( Amer) Est GFR (Non-Af Amer) POC Glucose (mg/dL) Random Glucose Calcium Magnesium Total Bilirubin AST ALT Alkaline Phosphatase Total Protein Albumin Globulin Albumin/Globulin Ratio Arterial Blood Potassium 5.0 Venous Blood Potassium 5.5 H Assessment & Plan - Assessment and Plan (Free Text) Assessment: 63F with a PMHx of DM, HTN dementia presents to the ED with altered mental status, sent in by PMD Dr Padilla for DKA Plan: DKA due to DM1 - Insulin Drip, titrate per protocol - IVF NS @ 125 - Accuchecks q1hr - BMP q4hrs - when gap closes switch to Basal/Bolus regimen - when gluc goes below 250, switch IVF to d5,1/2NS @ 125 - If K goes below 4, give 40 - f/u BC, UC - f/u AM VBG - CXR reviewed Vomiting - reglan given in ED - no more episodes at this time HTN - Coreg 25 BID - Cozaar 50 daily Bipolar/Schizophrenia - Holding home meds - restart when cleared by PMD DVT,GI PPx - NPO diet - PTX 40 daily - Hep 5000u sc q8 Case Reviewed w/ Dr Jenaro Bhakta PGY1 <Salbador Eason - Last Filed: 09/06/18 23:38> Meds - Medications Medications: Current Medications Atorvastatin Calcium (Lipitor) 20 mg PO DIN LELIA Carvedilol (Coreg) 25 mg PO BID LELIA Clopidogrel Bisulfate (Plavix) 75 mg PO DAILY LELIA Dextrose (Dextrose 50% Inj) 0 ml IV STAT PRN; Protocol PRN Reason: Hypoglycemia Protocol Heparin Sodium (Porcine) (Heparin) 5,000 units SC Q8 LELIA; Protocol Last Admin: 09/06/18 22:56 Dose: 5,000 units Dextrose (Dextrose 5% In Water 1000 Ml) 1,000 mls @ 0 mls/hr IV .Q0M PRN; Protocol PRN Reason: Hypoglycemia Protocol Insulin Human Regular 100 (units/ Sodium Chloride) 100 mls @ 0 mls/hr IV .Q0M PRN; Protocol PRN Reason: Other Last Titration: 09/06/18 23:23 Dose: 8 mls/hr Sodium Chloride (Sodium Chloride 0.9%) 1,000 mls @ 125 mls/hr IV .Q8H LELIA Last Admin: 09/06/18 21:13 Dose: 125 mls/hr Losartan Potassium (Cozaar) 50 mg PO DAILY LELIA Pantoprazole Sodium (Protonix Ec Tab) 40 mg PO ACB [facility] Results - Vital Signs Recent Vital Signs: Last Vital Signs Temp 98 F 09/06/18 18:25 Pulse 102 H 09/06/18 21:20 Resp 18 09/06/18 21:20 BP 135/58 L 09/06/18 21:20 Pulse Ox 99 09/06/18 21:20 - Labs Result Diagrams: 09/06/18 18:45 09/06/18 22:46 Labs: Laboratory Results - last 24 hr 09/06/18 09/06/18 09/06/18 18:13 18:45 18:45 WBC 8.4 RBC 3.89 Hgb 11.4 L Hct 34.5 L MCV 88.7 MCH 29.3 MCHC 33.0 RDW 13.2 Plt Count 223 MPV 10.1 Neut % (Auto) 80.9 H Lymph % (Auto) 16.1 L Norton % (Auto) 2.6 Eos % (Auto) 0.2 L Baso % (Auto) 0.2 Lymph # (Auto) 1.4 Norton # (Auto) 0.2 Eos # (Auto) 0.0 Baso # (Auto) 0.02 Absolute Neuts (auto) 6.79 H PT INR APTT pCO2 pO2 HCO3 ABG pH ABG Total CO2 ABG O2 Saturation ABG Base Excess ABG Potassium VBG pH VBG pCO2 VBG HCO3 VBG Total CO2 VBG O2 Sat (Calc) VBG Base Excess VBG Potassium Glucose Lactate FiO2 Crit Value Called To Crit Value Called By Blood Gas Notified Time Sodium 130 L Potassium 5.5 H Chloride 93 L Carbon Dioxide 13 L Anion Gap 30 H BUN 37 H Creatinine 1.6 H Est GFR ( Amer) 39 Est GFR (Non-Af Amer) 32 POC Glucose (mg/dL) > 500 H* Random Glucose 700 H* D Calcium 9.3 Magnesium 2.3 H Total Bilirubin 0.5 AST 23 ALT 10 Alkaline Phosphatase 158 H D Total Protein 8.4 H Albumin 4.5 Globulin 3.9 Albumin/Globulin Ratio 1.2 Arterial Blood Potassium Venous Blood Potassium 09/06/18 09/06/18 09/06/18 18:45 19:14 19:30 WBC RBC Hgb Hct MCV MCH MCHC RDW Plt Count MPV Neut % (Auto) Lymph % (Auto) Norton % (Auto) Eos % (Auto) Baso % (Auto) Lymph # (Auto) Norton # (Auto) Eos # (Auto) Baso # (Auto) Absolute Neuts (auto) PT 11.9 INR 1.07 APTT 31.7 pCO2 29 L pO2 41 94.0 HCO3 10.1 L ABG pH 7.15 L* ABG Total CO2 11.0 L ABG O2 Saturation 98.3 H ABG Base Excess -17.4 L ABG Potassium 5.0 VBG pH 7.15 L* VBG pCO2 39.0 L VBG HCO3 13.6 L VBG Total CO2 14.8 L VBG O2 Sat (Calc) 73.8 H VBG Base Excess -14.6 L VBG Potassium 5.5 H Glucose > 750 H* D 701 H* Lactate 2.3 H 1.5 FiO2 21.0 28.0 Crit Value Called To Tabitha tatum Crit Value Called By [facility] [id number] Blood Gas Notified Time 1918 1939 Sodium 130.0 L 130.0 L Potassium Chloride 90.0 L 94.0 L Carbon Dioxide Anion Gap BUN Creatinine Est GFR ( Amer) Est GFR (Non-Af Amer) POC Glucose (mg/dL) Random Glucose Calcium Magnesium Total Bilirubin AST ALT Alkaline Phosphatase Total Protein Albumin Globulin Albumin/Globulin Ratio Arterial Blood Potassium 5.0 Venous Blood Potassium 5.5 H 09/06/18 09/06/18 09/06/18 22:07 22:46 22:46 WBC RBC Hgb Hct MCV MCH MCHC RDW Plt Count MPV Neut % (Auto) Lymph % (Auto) Norton % (Auto) Eos % (Auto) Baso % (Auto) Lymph # (Auto) Norton # (Auto) Eos # (Auto) Baso # (Auto) Absolute Neuts (auto) PT INR APTT pCO2 pO2 40 HCO3 ABG pH ABG Total CO2 ABG O2 Saturation ABG Base Excess ABG Potassium VBG pH 7.10 L* VBG pCO2 42.0 VBG HCO3 13.0 L VBG Total CO2 14.3 L VBG O2 Sat (Calc) 73.6 H VBG Base Excess -16.1 L VBG Potassium 4.8 Glucose 465 H* D Lactate 1.9 FiO2 21.0 Crit Value Called To Bobbi hogan government relations analyst Crit Value Called By [place] Blood Gas Notified Time 2311 Sodium 136 138.0 Potassium 4.9 Chloride 103 98.0 Carbon Dioxide 15 L Anion Gap 23 H BUN 35 H Creatinine 1.3 H Est GFR ( Amer) 50 Est GFR (Non-Af Amer) 41 POC Glucose (mg/dL) 439 H* Random Glucose 429 H* D Calcium 8.8 Magnesium Total Bilirubin AST ALT Alkaline Phosphatase Total Protein Albumin Globulin Albumin/Globulin Ratio Arterial Blood Potassium Venous Blood Potassium 4.8 09/06/18 23:17 WBC RBC Hgb Hct MCV MCH MCHC RDW Plt Count MPV Neut % (Auto) Lymph % (Auto) Norton % (Auto) Eos % (Auto) Baso % (Auto) Lymph # (Auto) Norton # (Auto) Eos # (Auto) Baso # (Auto) Absolute Neuts (auto) PT INR APTT pCO2 pO2 HCO3 ABG pH ABG Total CO2 ABG O2 Saturation ABG Base Excess ABG Potassium VBG pH VBG pCO2 VBG HCO3 VBG Total CO2 VBG O2 Sat (Calc) VBG Base Excess VBG Potassium Glucose Lactate FiO2 Crit Value Called To Crit Value Called By Blood Gas Notified Time Sodium Potassium Chloride Carbon Dioxide Anion Gap BUN Creatinine Est GFR ( Amer) Est GFR (Non-Af Amer) POC Glucose (mg/dL) 343 H Random Glucose Calcium Magnesium Total Bilirubin AST ALT Alkaline Phosphatase Total Protein Albumin Globulin Albumin/Globulin Ratio Arterial Blood Potassium Venous Blood Potassium Attending/Attestation - Attestation I have personally seen and examined this patient.: Yes I have fully participated in the care of the patient.: Yes I have reviewed all pertinent clinical information: Yes Notes (Text): Patient seen and examined with the residents, agree with above High anion gap metabolic acidosis attributed to DKA Started on DKA protocol with insulin gtt; will need ICU level of care accucheck q1h; BMP q4h. Monitor K and supplement as necessary Unclear why patient was administered Kayexalate in the ER. Will continue to monitor closely
[2018-09-06 23:08] LABS: CALCIUM 8.8 mg/dL (8.4-10.5)
[2018-09-06 23:13] LABS: VENOUS BLOOD GAS BASE EXCESS -16.1 mmol/L (0.0-2.0); VENOUS BLOOD GAS PO2 40 mm/Hg (30-55)
[2018-09-07 02:31] LABS: CALCIUM 8.5 mg/dL (8.4-10.5)
[2018-09-07] MEDS ORDERED: Potassium Chloride 40 MEQ in Dextrose 5%/0.45% NS 1,000 ML IV SCH ×2 (03:00→05:30)
[2018-09-07 05:52] LABS: HDL CHOLESTEROL 62 mg/dL (29-60)
[2018-09-07 06:02] LABS: LDL CHOLESTEROL 57 mg/dL (0-129)
[2018-09-07] MEDS ORDERED: Insulin Detemir 100 units/ml Vial (Levemir) SC ONE (06:12)
[2018-09-07] MEDS: Pantoprazole 40 mg EC Tab PO SCH (06:49)
[2018-09-07 07:32] LABS: HEMOGLOBIN 11.5 g/dL (12.0-16.0); MEAN CELL VOLUME 86.6 fl (80.0-105.0); MEAN CORPUSCULAR HGB CONC 33.4 g/dl (31.0-37.0); MEAN PLATELET VOLUME 9.8 fl (7.0-11.0); RBC 3.97 10^6/uL (3.5-6.1); RED CELL DISTRIBUTION WIDTH 13.2 % (11.5-14.5); WHITE BLOOD COUNT 8.8 10^3/uL (4.5-11.0)
[2018-09-07 07:40] LABS: ALB/GLOB RATIO 0.9 (1.1-1.8); ALBUMIN 3.7 g/dL (3.0-4.8); ALT/SGPT 10 U/L (7-56); AST/SGOT 25 U/L (14-36); BLOOD UREA NITROGEN 28 mg/dL (7-21); CALCIUM 8.5 mg/dL (8.4-10.5); GFR NON-AFRICAN AMERICAN 50
--- NOTE | 2018-09-07 07:47 | CON ---
DATE: 09/06/2018 ENDOCRINOLOGY CONSULTATION Room 129, Bed #4, CCU. This is a 63-year-old female with known history of type 1 insulin-dependent diabetes presenting here with altered mental status when seen today at her primary physician's office with marked hyperglycemic accelerations and glucose levels over 700 as noted thereof. PAST MEDICAL HISTORY: As mentioned above, history of type 1 insulin-dependent diabetes, on a combination of Levemir, given as 30 units bedtime with Humalog given as 8 units t.i.d. with meals; history of hypertension and dyslipidemia; history of diabetic retinopathy and is legally blind with diabetic polyneuropathy and underlying nephropathy; history of chronic schizoaffective disorder with known history of schizophrenia, on psychotropic medications; history of coronary artery disease with peripheral vasculopathy; history of cerebrovascular disease with residual left-sided weakness; history of COPD and chronic bronchial asthma; history of cervical disc disease and also lumbar disc disease with previous laminectomy and fusion procedure; history of total abdominal hysterectomy with salpingo-oophorectomy with cholecystectomy at the same time as noted. FAMILY HISTORY: Positive for hypertension and diabetes. SOCIAL HISTORY: The patient has a supportive family. No known substance use. REVIEW OF SYSTEMS: As mentioned above. Admits to generalized body weakness with progressive dizziness and lightheadedness and visual blurring, worse on the day of admission. Also admits to easy fatigability and tiredness with recent onset of confusion and altered mental status as per the family members. No chest pains or palpitations or PND. Her oral intake has been variable with nausea, dyspepsia and one episode of vomiting. Also admits to marked polyuria, nocturia and polydipsia. Moreover, admits to lower extremity paresthesias especially nocturnally. PHYSICAL EXAMINATION: GENERAL: Overweight female in no apparent distress. VITAL SIGNS: Blood pressure of 140/80; pulse of 100 beats per minute, regular; temperature 98; respirations 20; height is 5 feet 11 inches; weight is 240 pounds. HEENT: Head normocephalic. Eyes anicteric with pink conjunctivae. Funduscopy is not possible at this time. Ears, nose, and throat otherwise normal. NECK: Supple. Thyroid gland is normal in size. No carotid bruits or cervical adenopathy. CARDIOPULMONARY: Some adynamic precordium. S1, S2 are rapid and regular. LUNGS: Clear to auscultation. ABDOMEN: Flat, soft with positive bowel sounds. EXTREMITIES: No peripheral edema. Pulses are +2 bilaterally. LABORATORY DATA: Chemistry showed a BUN of 37, sodium 130, potassium 5.5, chloride 93, CO2 of 13, glucose 700, creatinine 1.6. The glucose values have ranged from 439 to over 500 mg/dL. ASSESSMENT: This is a 63-year-old female with uncontrolled and decompensated type 1 insulin-dependent diabetes, presenting here with diabetic ketoacidosis and dehydration with spurious hyponatremia and altered mental status as noted thereof. She also has diabetic microvascular complications of retinopathy, polyneuropathy and early nephropathy. Moreover, she also has diabetic macrovascular complications of cerebrovascular disease with residual left-sided weakness and coronary artery disease with underlying peripheral vasculopathy. PLAN OF MANAGEMENT: Concur with intensive insulin therapy with an insulin drip infusion as ordered at this time. However, we will continue the vigorous IV hydration with expected increased osmotic diuresis and volume deficit as noted and we will increase the normal saline to 150 mL/hour as ordered. We will obtain serial chemistries and supplement accordingly as needed. A hemoglobin A1c will be done to confirm her prior glycemic control and baseline thyroid function studies will be ordered. We will obtain serial chemistries and supplement accordingly as needed. We will also initiate a heart-healthy, carb-consistent diet for tomorrow morning as ordered. We will continue the IV hydration and intensive insulin therapy until the CO2 is at least above 18-20 with closure of the anion gap. We will switch her over then to a more physiologic baseline bolus insulin regimen as indicated. Thank you. Polly Carrillo MD
--- NOTE | 2018-09-07 07:56 | RAD ---
Date of service: 09/06/2018 HISTORY: medical clearance, dka COMPARISON: 03/30/2018 TECHNIQUE: 1 view obtained. FINDINGS: LUNGS: No active pulmonary disease. PLEURA: No significant pleural effusion identified, no pneumothorax apparent. CARDIOVASCULAR: No aortic atherosclerotic calcification present. Normal cardiac size. No pulmonary vascular congestion. OSSEOUS STRUCTURES: No significant abnormalities. VISUALIZED UPPER ABDOMEN: Normal. OTHER FINDINGS: None. IMPRESSION: No active disease.
[2018-09-07] MEDS: Insulin Lispro 1 UNITS/0.01 ML SC SCH ×3 (07:58→17:52)
[2018-09-07] MEDS: Insulin Lispro (humaLOG) LOW Coverage SC SCH ×4 (07:59→22:07)
[2018-09-07 08:45] LABS: TROPONIN I 0.06 ng/mL
[2018-09-07 09:00] VITALS: BMI 22.2
--- NOTE | 2018-09-07 10:56 | CP.CCUPN ---
<Devaughn Samuels - Last Filed: 09/07/18 11:18> CCU Subjective - Physician Review Events Since Last Encounter (Free Text): 09/07/18 10:51 pt no longer on insulin drip, being transitioned to long acting insulin Subjective (Free Text): 09/07/18 10:51 Pt seen and examined at bedside this morning. Pt denies chest pain, SOB CCU Objective - Vital Signs / Intake & Output Vital Signs (Last 4 hours): Vital Signs Pulse Resp BP Pulse Ox 09/07/18 09:00 89 76 H 158/62 H 09/07/18 08:58 61 51 H 09/07/18 08:40 115 H 25 H 99 09/07/18 08:30 90 20 98 09/07/18 08:20 84 17 98 09/07/18 08:10 93 H 96 09/07/18 08:00 90 154/108 H 99 09/07/18 07:50 87 21 99 09/07/18 07:40 90 25 H 99 09/07/18 07:30 93 H 19 98 09/07/18 07:21 91 H 15 99 09/07/18 07:10 90 15 100 09/07/18 07:00 91 H 17 162/69 H 100 Intake and Output (Last 8hrs): Intake & Output 09/06/18 09/07/18 09/07/18 22:59 06:59 14:59 Intake Total 12 1393 Balance 12 1393 Weight 159 lb 7 oz Intake: IV 12 1393 0.9 nsaline 600 0.9nsaline 250 D51/2nsaline 375 d51/2 ns + KCL 100 regular Insulin 51 Other: Voiding Method Incontinent # Bowel Movements 0 - Physical Exam Head: Positive for: Atraumatic, Normocephalic Pupils: Positive for: PERRL Extroacular Muscles: Positive for: EOMI Conjunctiva: Positive for: Normal Mouth: Positive for: Moist Mucous Membranes Neck: Positive for: Normal Range of Motion Respiratory/Chest: Positive for: Clear to Auscultation, Good Air Exchange. Negative for: Respiratory Distress, Accessory Muscle Use Cardiovascular: Positive for: Regular Rate and Rhythm, Normal S1, S2. Negative for: Murmurs Abdomen: Positive for: Normal Bowel Sounds. Negative for: Tenderness, Distention, Peritoneal Signs, Rebound, Guarding, Rovsing's Sign Present, Ostomy Tubes, Mass/Organomegaly, Scars Back: Positive for: Normal Inspection. Negative for: CVA Tenderness, Midline Tenderness, Paraspinal Tenderness, Pain with Leg Raise Upper Extremity: Positive for: Normal Inspection. Negative for: Cyanosis, Edema Lower Extremity: Positive for: Normal Inspection. Negative for: Edema Neurological: Positive for: GCS=15, CN II-XII Intact, Speech Normal, Motor Func Grossly Intact, Normal Cerebellar Funct, Gait Normal, Memory Normal Skin: Positive for: Warm, Dry, Normal Color. Negative for: Rashes Psychiatric: Positive for: Alert, Oriented x 3, Normal Insight, Normal Concentration - Medications Active Medications: Active Medications Generic Name Dose Route Start Last Admin Trade Name Freq PRN Reason Stop Dose Admin Atorvastatin Calcium 20 mg 09/07/18 17:00 Lipitor PO DIN [facility] Carvedilol 25 mg 09/07/18 10:00 Coreg PO BID [facility] Clopidogrel Bisulfate 75 mg 09/07/18 10:00 Plavix PO DAILY [facility] Dextrose 0 ml 09/06/18 19:41 Dextrose 50% Inj IV STAT PRN Hypoglycemia Protocol Protocol Heparin Sodium (Porcine) 5,000 units 09/06/18 22:00 09/07/18 06:16 Heparin SC 5,000 units Q8 LELIA Administration Protocol Dextrose 1,000 mls @ 0 mls/hr 09/06/18 19:41 Dextrose 5% In Water 1000 Ml IV .Q0M PRN Hypoglycemia Protocol Protocol Per Protocol Potassium Chloride 40 meq/ 1,020 mls @ 100 mls/hr 09/07/18 05:30 09/07/18 05:30 Dextrose/Sodium Chloride IV 100 mls/hr .[id number] LELIA Administration Insulin Detemir 30 unit 09/07/18 22:00 Levemir SC HS LELIA Insulin Human Lispro 8 units 09/07/18 07:30 09/07/18 07:58 Humalog SC 8 u AC LELIA Administration Insulin Human Lispro 0 units 09/07/18 07:30 09/07/18 07:59 Humalog Low SC 2 u ACHS LELIA Administration Protocol Losartan Potassium 50 mg 09/07/18 10:00 Cozaar PO DAILY [facility] Pantoprazole Sodium 40 mg 09/07/18 07:30 09/07/18 06:49 Protonix Ec Tab PO 40 mg ACB LELIA Administration - Patient Studies Lab Studies: Lab Studies 09/07/18 09/07/18 09/07/18 Range/Units 07:56 07:06 05:49 WBC (4.5-11.0) 10^3/uL RBC (3.5-6.1) 10^6/uL Hgb (12.0-16.0) g/dL Hct (36.0-48.0) % MCV (80.0-105.0) fl MCH (25.0-35.0) pg MCHC (31.0-37.0) g/dl RDW (11.5-14.5) % Plt Count (120.0-450.0) 10^3/uL MPV (7.0-11.0) fl Neut % (Auto) (50.0-68.0) % Lymph % (Auto) (22.0-35.0) % Bradford % (Auto) (1.0-6.0) % Eos % (Auto) (1.5-5.0) % Baso % (Auto) (0.0-3.0) % Lymph # (Auto) (1.2-3.4) Bradford # (Auto) (0.1-0.6) Eos # (Auto) (0.0-0.7) Baso # (Auto) (0.0-2.0) K/mm3 Absolute Neuts (auto) (1.4-6.5) PT (9.4-12.5) SECONDS INR APTT (26.9-38.3) Seconds pCO2 (35-45) mm/Hg pO2 (30-55) mm/Hg HCO3 (21-28) mmol/L ABG pH (7.35-7.45) ABG Total CO2 (22-28) mmol.L ABG O2 Saturation (95-98) % ABG Base Excess (-2.0-3.0) mmol/L ABG Potassium (3.6-5.2) mmol/L VBG pH (7.32-7.43) VBG pCO2 (40-60) VBG HCO3 (21-28) mmol/l VBG Total CO2 (22-28) mmol.L VBG O2 Sat (Calc) (40-65) % VBG Base Excess (0.0-2.0) mmol/L VBG Potassium (3.6-5.2) mmol/L Glucose (65-105) mg/dl Lactate (0.7-2.1) mmol/L FiO2 % Crit Value Called To Crit Value Called By Blood Gas Notified Time Sodium (132-148) mmol/L Potassium (3.6-5.0) mmol/L Chloride (98-107) mmol/L Carbon Dioxide (21-33) mmol/L Anion Gap (10-20) BUN (7-21) mg/dL Creatinine (0.7-1.2) mg/dl Est GFR ( Amer) Est GFR (Non-Af Amer) POC Glucose (mg/dL) 225 H 156 H (65-110) mg/dL Random Glucose (70-110) mg/dL Calcium (8.4-10.5) mg/dL Phosphorus (2.5-4.5) mg/dL Magnesium (1.7-2.2) mg/dL Total Bilirubin (0.2-1.3) mg/dL AST (14-36) U/L ALT (7-56) U/L Alkaline Phosphatase (38-126) U/L Troponin I 0.06 D ng/mL Total Protein (5.8-8.3) g/dL Albumin (3.0-4.8) g/dL Globulin gm/dL Albumin/Globulin Ratio (1.1-1.8) Triglycerides (35-160) mg/dL Cholesterol (130-200) mg/dL LDL Cholesterol Direct (0-129) mg/dL HDL Cholesterol (29-60) mg/dL Amylase 251 H (35-125) U/L Lipase 49 (23-300) U/L TSH 3rd Generation (0.46-4.68) mIU/mL Arterial Blood Potassium (3.6-5.2) mmol/L Venous Blood Potassium (3.6-5.2) mmol/L 09/07/18 09/07/18 09/07/18 Range/Units 05:25 05:25 05:25 WBC 8.8 (4.5-11.0) 10^3/uL RBC 3.97 (3.5-6.1) 10^6/uL Hgb 11.5 L (12.0-16.0) g/dL Hct 34.4 L (36.0-48.0) % MCV 86.6 (80.0-105.0) fl MCH 29.0 (25.0-35.0) pg MCHC 33.4 (31.0-37.0) g/dl RDW 13.2 (11.5-14.5) % Plt Count 229 (120.0-450.0) 10^3/uL MPV 9.8 (7.0-11.0) fl Neut % (Auto) (50.0-68.0) % Lymph % (Auto) (22.0-35.0) % Bradford % (Auto) (1.0-6.0) % Eos % (Auto) (1.5-5.0) % Baso % (Auto) (0.0-3.0) % Lymph # (Auto) (1.2-3.4) Bradford # (Auto) (0.1-0.6) Eos # (Auto) (0.0-0.7) Baso # (Auto) (0.0-2.0) K/mm3 Absolute Neuts (auto) (1.4-6.5) PT (9.4-12.5) SECONDS INR APTT (26.9-38.3) Seconds pCO2 (35-45) mm/Hg pO2 (30-55) mm/Hg HCO3 (21-28) mmol/L ABG pH (7.35-7.45) ABG Total CO2 (22-28) mmol.L ABG O2 Saturation (95-98) % ABG Base Excess (-2.0-3.0) mmol/L ABG Potassium (3.6-5.2) mmol/L VBG pH (7.32-7.43) VBG pCO2 (40-60) VBG HCO3 (21-28) mmol/l VBG Total CO2 (22-28) mmol.L VBG O2 Sat (Calc) (40-65) % VBG Base Excess (0.0-2.0) mmol/L VBG Potassium (3.6-5.2) mmol/L Glucose (65-105) mg/dl Lactate (0.7-2.1) mmol/L FiO2 % Crit Value Called To Crit Value Called By Blood Gas Notified Time Sodium 140 (132-148) mmol/L Potassium 3.8 (3.6-5.0) mmol/L Chloride 106 (98-107) mmol/L Carbon Dioxide 24 (21-33) mmol/L Anion Gap 13 (10-20) BUN 28 H (7-21) mg/dL Creatinine 1.1 (0.7-1.2) mg/dl Est GFR ( Amer) > 60 Est GFR (Non-Af Amer) 50 POC Glucose (mg/dL) (65-110) mg/dL Random Glucose 144 H (70-110) mg/dL Calcium 8.5 (8.4-10.5) mg/dL Phosphorus 2.8 (2.5-4.5) mg/dL Magnesium 2.2 (1.7-2.2) mg/dL Total Bilirubin 0.4 (0.2-1.3) mg/dL AST 25 (14-36) U/L ALT 10 (7-56) U/L Alkaline Phosphatase 122 (38-126) U/L Troponin I ng/mL Total Protein 7.8 (5.8-8.3) g/dL Albumin 3.7 (3.0-4.8) g/dL Globulin 4.1 gm/dL Albumin/Globulin Ratio 0.9 L (1.1-1.8) Triglycerides (35-160) mg/dL Cholesterol (130-200) mg/dL LDL Cholesterol Direct (0-129) mg/dL HDL Cholesterol (29-60) mg/dL Amylase (35-125) U/L Lipase (23-300) U/L TSH 3rd Generation 2.18 (0.46-4.68) mIU/mL Arterial Blood Potassium (3.6-5.2) mmol/L Venous Blood Potassium (3.6-5.2) mmol/L 09/07/18 09/07/18 09/07/18 Range/Units 05:25 04:56 03:58 WBC (4.5-11.0) 10^3/uL RBC (3.5-6.1) 10^6/uL Hgb (12.0-16.0) g/dL Hct (36.0-48.0) % MCV (80.0-105.0) fl MCH (25.0-35.0) pg MCHC (31.0-37.0) g/dl RDW (11.5-14.5) % Plt Count (120.0-450.0) 10^3/uL MPV (7.0-11.0) fl Neut % (Auto) (50.0-68.0) % Lymph % (Auto) (22.0-35.0) % Bradford % (Auto) (1.0-6.0) % Eos % (Auto) (1.5-5.0) % Baso % (Auto) (0.0-3.0) % Lymph # (Auto) (1.2-3.4) Bradford # (Auto) (0.1-0.6) Eos # (Auto) (0.0-0.7) Baso # (Auto) (0.0-2.0) K/mm3 Absolute Neuts (auto) (1.4-6.5) PT (9.4-12.5) SECONDS INR APTT (26.9-38.3) Seconds pCO2 (35-45) mm/Hg pO2 (30-55) mm/Hg HCO3 (21-28) mmol/L ABG pH (7.35-7.45) ABG Total CO2 (22-28) mmol.L ABG O2 Saturation (95-98) % ABG Base Excess (-2.0-3.0) mmol/L ABG Potassium (3.6-5.2) mmol/L VBG pH (7.32-7.43) VBG pCO2 (40-60) VBG HCO3 (21-28) mmol/l VBG Total CO2 (22-28) mmol.L VBG O2 Sat (Calc) (40-65) % VBG Base Excess (0.0-2.0) mmol/L VBG Potassium (3.6-5.2) mmol/L Glucose (65-105) mg/dl Lactate (0.7-2.1) mmol/L FiO2 % Crit Value Called To Crit Value Called By Blood Gas Notified Time Sodium (132-148) mmol/L Potassium (3.6-5.0) mmol/L Chloride (98-107) mmol/L Carbon Dioxide (21-33) mmol/L Anion Gap (10-20) BUN (7-21) mg/dL Creatinine (0.7-1.2) mg/dl Est GFR ( Amer) Est GFR (Non-Af Amer) POC Glucose (mg/dL) 154 H 172 H (65-110) mg/dL Random Glucose (70-110) mg/dL Calcium (8.4-10.5) mg/dL Phosphorus (2.5-4.5) mg/dL Magnesium (1.7-2.2) mg/dL Total Bilirubin (0.2-1.3) mg/dL AST (14-36) U/L ALT (7-56) U/L Alkaline Phosphatase (38-126) U/L Troponin I ng/mL Total Protein (5.8-8.3) g/dL Albumin (3.0-4.8) g/dL Globulin gm/dL Albumin/Globulin Ratio (1.1-1.8) Triglycerides 129 (35-160) mg/dL Cholesterol 167 (130-200) mg/dL LDL Cholesterol Direct 57 (0-129) mg/dL HDL Cholesterol 62 H (29-60) mg/dL Amylase (35-125) U/L Lipase (23-300) U/L TSH 3rd Generation (0.46-4.68) mIU/mL Arterial Blood Potassium (3.6-5.2) mmol/L Venous Blood Potassium (3.6-5.2) mmol/L 09/07/18 09/07/18 09/07/18 Range/Units 02:52 02:05 01:56 WBC (4.5-11.0) 10^3/uL RBC (3.5-6.1) 10^6/uL Hgb (12.0-16.0) g/dL Hct (36.0-48.0) % MCV (80.0-105.0) fl MCH (25.0-35.0) pg MCHC (31.0-37.0) g/dl RDW (11.5-14.5) % Plt Count (120.0-450.0) 10^3/uL MPV (7.0-11.0) fl Neut % (Auto) (50.0-68.0) % Lymph % (Auto) (22.0-35.0) % Bradford % (Auto) (1.0-6.0) % Eos % (Auto) (1.5-5.0) % Baso % (Auto) (0.0-3.0) % Lymph # (Auto) (1.2-3.4) Bradford # (Auto) (0.1-0.6) Eos # (Auto) (0.0-0.7) Baso # (Auto) (0.0-2.0) K/mm3 Absolute Neuts (auto) (1.4-6.5) PT (9.4-12.5) SECONDS INR APTT (26.9-38.3) Seconds pCO2 (35-45) mm/Hg pO2 (30-55) mm/Hg HCO3 (21-28) mmol/L ABG pH (7.35-7.45) ABG Total CO2 (22-28) mmol.L ABG O2 Saturation (95-98) % ABG Base Excess (-2.0-3.0) mmol/L ABG Potassium (3.6-5.2) mmol/L VBG pH (7.32-7.43) VBG pCO2 (40-60) VBG HCO3 (21-28) mmol/l VBG Total CO2 (22-28) mmol.L VBG O2 Sat (Calc) (40-65) % VBG Base Excess (0.0-2.0) mmol/L VBG Potassium (3.6-5.2) mmol/L Glucose (65-105) mg/dl Lactate (0.7-2.1) mmol/L FiO2 % Crit Value Called To Crit Value Called By Blood Gas Notified Time Sodium 139 (132-148) mmol/L Potassium 4.1 (3.6-5.0) mmol/L Chloride 105 (98-107) mmol/L Carbon Dioxide 20 L (21-33) mmol/L Anion Gap 17 (10-20) BUN 31 H (7-21) mg/dL Creatinine 1.2 (0.7-1.2) mg/dl Est GFR ( Amer) 55 Est GFR (Non-Af Amer) 45 POC Glucose (mg/dL) 219 H 242 H (65-110) mg/dL Random Glucose 210 H (70-110) mg/dL Calcium 8.5 (8.4-10.5) mg/dL Phosphorus (2.5-4.5) mg/dL Magnesium (1.7-2.2) mg/dL Total Bilirubin (0.2-1.3) mg/dL AST (14-36) U/L ALT (7-56) U/L Alkaline Phosphatase (38-126) U/L Troponin I ng/mL Total Protein (5.8-8.3) g/dL Albumin (3.0-4.8) g/dL Globulin gm/dL Albumin/Globulin Ratio (1.1-1.8) Triglycerides (35-160) mg/dL Cholesterol (130-200) mg/dL LDL Cholesterol Direct (0-129) mg/dL HDL Cholesterol (29-60) mg/dL Amylase (35-125) U/L Lipase (23-300) U/L TSH 3rd Generation (0.46-4.68) mIU/mL Arterial Blood Potassium (3.6-5.2) mmol/L Venous Blood Potassium (3.6-5.2) mmol/L 09/07/18 09/06/18 09/06/18 Range/Units 00:57 23:49 23:17 WBC (4.5-11.0) 10^3/uL RBC (3.5-6.1) 10^6/uL Hgb (12.0-16.0) g/dL Hct (36.0-48.0) % MCV (80.0-105.0) fl MCH (25.0-35.0) pg MCHC (31.0-37.0) g/dl RDW (11.5-14.5) % Plt Count (120.0-450.0) 10^3/uL MPV (7.0-11.0) fl Neut % (Auto) (50.0-68.0) % Lymph % (Auto) (22.0-35.0) % Bradford % (Auto) (1.0-6.0) % Eos % (Auto) (1.5-5.0) % Baso % (Auto) (0.0-3.0) % Lymph # (Auto) (1.2-3.4) Bradford # (Auto) (0.1-0.6) Eos # (Auto) (0.0-0.7) Baso # (Auto) (0.0-2.0) K/mm3 Absolute Neuts (auto) (1.4-6.5) PT (9.4-12.5) SECONDS INR APTT (26.9-38.3) Seconds pCO2 (35-45) mm/Hg pO2 (30-55) mm/Hg HCO3 (21-28) mmol/L ABG pH (7.35-7.45) ABG Total CO2 (22-28) mmol.L ABG O2 Saturation (95-98) % ABG Base Excess (-2.0-3.0) mmol/L ABG Potassium (3.6-5.2) mmol/L VBG pH (7.32-7.43) VBG pCO2 (40-60) VBG HCO3 (21-28) mmol/l VBG Total CO2 (22-28) mmol.L VBG O2 Sat (Calc) (40-65) % VBG Base Excess (0.0-2.0) mmol/L VBG Potassium (3.6-5.2) mmol/L Glucose (65-105) mg/dl Lactate (0.7-2.1) mmol/L FiO2 % Crit Value Called To Crit Value Called By Blood Gas Notified Time Sodium (132-148) mmol/L Potassium (3.6-5.0) mmol/L Chloride (98-107) mmol/L Carbon Dioxide (21-33) mmol/L Anion Gap (10-20) BUN (7-21) mg/dL Creatinine (0.7-1.2) mg/dl Est GFR ( Amer) Est GFR (Non-Af Amer) POC Glucose (mg/dL) 292 H 363 H 343 H (65-110) mg/dL Random Glucose (70-110) mg/dL Calcium (8.4-10.5) mg/dL Phosphorus (2.5-4.5) mg/dL Magnesium (1.7-2.2) mg/dL Total Bilirubin (0.2-1.3) mg/dL AST (14-36) U/L ALT (7-56) U/L Alkaline Phosphatase (38-126) U/L Troponin I ng/mL Total Protein (5.8-8.3) g/dL Albumin (3.0-4.8) g/dL Globulin gm/dL Albumin/Globulin Ratio (1.1-1.8) Triglycerides (35-160) mg/dL Cholesterol (130-200) mg/dL LDL Cholesterol Direct (0-129) mg/dL HDL Cholesterol (29-60) mg/dL Amylase (35-125) U/L Lipase (23-300) U/L TSH 3rd Generation (0.46-4.68) mIU/mL Arterial Blood Potassium (3.6-5.2) mmol/L Venous Blood Potassium (3.6-5.2) mmol/L 09/06/18 09/06/18 09/06/18 Range/Units 22:46 22:46 22:07 WBC (4.5-11.0) 10^3/uL RBC (3.5-6.1) 10^6/uL Hgb (12.0-16.0) g/dL Hct (36.0-48.0) % MCV (80.0-105.0) fl MCH (25.0-35.0) pg MCHC (31.0-37.0) g/dl RDW (11.5-14.5) % Plt Count (120.0-450.0) 10^3/uL MPV (7.0-11.0) fl Neut % (Auto) (50.0-68.0) % Lymph % (Auto) (22.0-35.0) % Bradford % (Auto) (1.0-6.0) % Eos % (Auto) (1.5-5.0) % Baso % (Auto) (0.0-3.0) % Lymph # (Auto) (1.2-3.4) Bradford # (Auto) (0.1-0.6) Eos # (Auto) (0.0-0.7) Baso # (Auto) (0.0-2.0) K/mm3 Absolute Neuts (auto) (1.4-6.5) PT (9.4-12.5) SECONDS INR APTT (26.9-38.3) Seconds pCO2 (35-45) mm/Hg pO2 40 (30-55) mm/Hg HCO3 (21-28) mmol/L ABG pH (7.35-7.45) ABG Total CO2 (22-28) mmol.L ABG O2 Saturation (95-98) % ABG Base Excess (-2.0-3.0) mmol/L ABG Potassium (3.6-5.2) mmol/L VBG pH 7.10 L* (7.32-7.43) VBG pCO2 42.0 (40-60) VBG HCO3 13.0 L (21-28) mmol/l VBG Total CO2 14.3 L (22-28) mmol.L VBG O2 Sat (Calc) 73.6 H (40-65) % VBG Base Excess -16.1 L (0.0-2.0) mmol/L VBG Potassium 4.8 (3.6-5.2) mmol/L Glucose 465 H* D (65-105) mg/dl Lactate 1.9 (0.7-2.1) mmol/L FiO2 21.0 % Crit Value Called To Bobbi hogan rn ccu Crit Value Called By Everett Blood Gas Notified Time 2312 Sodium 138.0 136 (132-148) mmol/L Potassium 4.9 (3.6-5.0) mmol/L Chloride 98.0 103 (98-107) mmol/L Carbon Dioxide 15 L (21-33) mmol/L Anion Gap 23 H (10-20) BUN 35 H (7-21) mg/dL Creatinine 1.3 H (0.7-1.2) mg/dl Est GFR ( Amer) 50 Est GFR (Non-Af Amer) 41 POC Glucose (mg/dL) 439 H* (65-110) mg/dL Random Glucose 429 H* D (70-110) mg/dL Calcium 8.8 (8.4-10.5) mg/dL Phosphorus (2.5-4.5) mg/dL Magnesium (1.7-2.2) mg/dL Total Bilirubin (0.2-1.3) mg/dL AST (14-36) U/L ALT (7-56) U/L Alkaline Phosphatase (38-126) U/L Troponin I ng/mL Total Protein (5.8-8.3) g/dL Albumin (3.0-4.8) g/dL Globulin gm/dL Albumin/Globulin Ratio (1.1-1.8) Triglycerides (35-160) mg/dL Cholesterol (130-200) mg/dL LDL Cholesterol Direct (0-129) mg/dL HDL Cholesterol (29-60) mg/dL Amylase (35-125) U/L Lipase (23-300) U/L TSH 3rd Generation (0.46-4.68) mIU/mL Arterial Blood Potassium (3.6-5.2) mmol/L Venous Blood Potassium 4.8 (3.6-5.2) mmol/L 09/06/18 09/06/18 09/06/18 Range/Units 21:18 20:12 19:30 WBC (4.5-11.0) 10^3/uL RBC (3.5-6.1) 10^6/uL Hgb (12.0-16.0) g/dL Hct (36.0-48.0) % MCV (80.0-105.0) fl MCH (25.0-35.0) pg MCHC (31.0-37.0) g/dl RDW (11.5-14.5) % Plt Count (120.0-450.0) 10^3/uL MPV (7.0-11.0) fl Neut % (Auto) (50.0-68.0) % Lymph % (Auto) (22.0-35.0) % Bradford % (Auto) (1.0-6.0) % Eos % (Auto) (1.5-5.0) % Baso % (Auto) (0.0-3.0) % Lymph # (Auto) (1.2-3.4) Bradford # (Auto) (0.1-0.6) Eos # (Auto) (0.0-0.7) Baso # (Auto) (0.0-2.0) K/mm3 Absolute Neuts (auto) (1.4-6.5) PT (9.4-12.5) SECONDS INR APTT (26.9-38.3) Seconds pCO2 29 L (35-45) mm/Hg pO2 94.0 (30-55) mm/Hg HCO3 10.1 L (21-28) mmol/L ABG pH 7.15 L* (7.35-7.45) ABG Total CO2 11.0 L (22-28) mmol.L ABG O2 Saturation 98.3 H (95-98) % ABG Base Excess -17.4 L (-2.0-3.0) mmol/L ABG Potassium 5.0 (3.6-5.2) mmol/L VBG pH (7.32-7.43) VBG pCO2 (40-60) VBG HCO3 (21-28) mmol/l VBG Total CO2 (22-28) mmol.L VBG O2 Sat (Calc) (40-65) % VBG Base Excess (0.0-2.0) mmol/L VBG Potassium (3.6-5.2) mmol/L Glucose 701 H* (65-105) mg/dl Lactate 1.5 (0.7-2.1) mmol/L FiO2 28.0 % Crit Value Called [place] [id number] Blood Gas Notified Time 194 Sodium 130.0 L (132-148) mmol/L Potassium (3.6-5.0) mmol/L Chloride 94.0 L (98-107) mmol/L Carbon Dioxide (21-33) mmol/L Anion Gap (10-20) BUN (7-21) mg/dL Creatinine (0.7-1.2) mg/dl Est GFR ( Amer) Est GFR (Non-Af Amer) POC Glucose (mg/dL) 490 H* > 500 H* (65-110) mg/dL Random Glucose (70-110) mg/dL Calcium (8.4-10.5) mg/dL Phosphorus (2.5-4.5) mg/dL Magnesium (1.7-2.2) mg/dL Total Bilirubin (0.2-1.3) mg/dL AST (14-36) U/L ALT (7-56) U/L Alkaline Phosphatase (38-126) U/L Troponin I ng/mL Total Protein (5.8-8.3) g/dL Albumin (3.0-4.8) g/dL Globulin gm/dL Albumin/Globulin Ratio (1.1-1.8) Triglycerides (35-160) mg/dL Cholesterol (130-200) mg/dL LDL Cholesterol Direct (0-129) mg/dL HDL Cholesterol (29-60) mg/dL Amylase (35-125) U/L Lipase (23-300) U/L TSH 3rd Generation (0.46-4.68) mIU/mL Arterial Blood Potassium 5.0 (3.6-5.2) mmol/L Venous Blood Potassium (3.6-5.2) mmol/L 09/06/18 09/06/18 09/06/18 Range/Units 19:14 18:45 18:45 WBC (4.5-11.0) 10^3/uL RBC (3.5-6.1) 10^6/uL Hgb (12.0-16.0) g/dL Hct (36.0-48.0) % MCV (80.0-105.0) fl MCH (25.0-35.0) pg MCHC (31.0-37.0) g/dl RDW (11.5-14.5) % Plt Count (120.0-450.0) 10^3/uL MPV (7.0-11.0) fl Neut % (Auto) (50.0-68.0) % Lymph % (Auto) (22.0-35.0) % Bradford % (Auto) (1.0-6.0) % Eos % (Auto) (1.5-5.0) % Baso % (Auto) (0.0-3.0) % Lymph # (Auto) (1.2-3.4) Bradford # (Auto) (0.1-0.6) Eos # (Auto) (0.0-0.7) Baso # (Auto) (0.0-2.0) K/mm3 Absolute Neuts (auto) (1.4-6.5) PT 11.9 (9.4-12.5) SECONDS INR 1.07 APTT 31.7 (26.9-38.3) Seconds pCO2 (35-45) mm/Hg pO2 41 (30-55) mm/Hg HCO3 (21-28) mmol/L ABG pH (7.35-7.45) ABG Total CO2 (22-28) mmol.L ABG O2 Saturation (95-98) % ABG Base Excess (-2.0-3.0) mmol/L ABG Potassium (3.6-5.2) mmol/L VBG pH 7.15 L* (7.32-7.43) VBG pCO2 39.0 L (40-60) VBG HCO3 13.6 L (21-28) mmol/l VBG Total CO2 14.8 L (22-28) mmol.L VBG O2 Sat (Calc) 73.8 H (40-65) % VBG Base Excess -14.6 L (0.0-2.0) mmol/L VBG Potassium 5.5 H (3.6-5.2) mmol/L Glucose > 750 H* D (65-105) mg/dl Lactate 2.3 H (0.7-2.1) mmol/L FiO2 21.0 % Crit Value Called To Tabitha trivedi Crit Value Called By [facility] Blood Gas Notified Time 1918 Sodium 130.0 L 130 L (132-148) mmol/L Potassium 5.5 H (3.6-5.0) mmol/L Chloride 90.0 L 93 L (98-107) mmol/L Carbon Dioxide 13 L (21-33) mmol/L Anion Gap 30 H (10-20) BUN 37 H (7-21) mg/dL Creatinine 1.6 H (0.7-1.2) mg/dl Est GFR ( Amer) 39 Est GFR (Non-Af Amer) 32 POC Glucose (mg/dL) (65-110) mg/dL Random Glucose 700 H* D (70-110) mg/dL Calcium 9.3 (8.4-10.5) mg/dL Phosphorus (2.5-4.5) mg/dL Magnesium 2.3 H (1.7-2.2) mg/dL Total Bilirubin 0.5 (0.2-1.3) mg/dL AST 23 (14-36) U/L ALT 10 (7-56) U/L Alkaline Phosphatase 158 H D (38-126) U/L Troponin I ng/mL Total Protein 8.4 H (5.8-8.3) g/dL Albumin 4.5 (3.0-4.8) g/dL Globulin 3.9 gm/dL Albumin/Globulin Ratio 1.2 (1.1-1.8) Triglycerides (35-160) mg/dL Cholesterol (130-200) mg/dL LDL Cholesterol Direct (0-129) mg/dL HDL Cholesterol (29-60) mg/dL Amylase (35-125) U/L Lipase (23-300) U/L TSH 3rd Generation (0.46-4.68) mIU/mL Arterial Blood Potassium (3.6-5.2) mmol/L Venous Blood Potassium 5.5 H (3.6-5.2) mmol/L 09/06/18 09/06/18 Range/Units 18:45 18:13 WBC 8.4 (4.5-11.0) 10^3/uL RBC 3.89 (3.5-6.1) 10^6/uL Hgb 11.4 L (12.0-16.0) g/dL Hct 34.5 L (36.0-48.0) % MCV 88.7 (80.0-105.0) fl MCH 29.3 (25.0-35.0) pg MCHC 33.0 (31.0-37.0) g/dl RDW 13.2 (11.5-14.5) % Plt Count 223 (120.0-450.0) 10^3/uL MPV 10.1 (7.0-11.0) fl Neut % (Auto) 80.9 H (50.0-68.0) % Lymph % (Auto) 16.1 L (22.0-35.0) % Bradford % (Auto) 2.6 (1.0-6.0) % Eos % (Auto) 0.2 L (1.5-5.0) % Baso % (Auto) 0.2 (0.0-3.0) % Lymph # (Auto) 1.4 (1.2-3.4) Bradford # (Auto) 0.2 (0.1-0.6) Eos # (Auto) 0.0 (0.0-0.7) Baso # (Auto) 0.02 (0.0-2.0) K/mm3 Absolute Neuts (auto) 6.79 H (1.4-6.5) PT (9.4-12.5) SECONDS INR APTT (26.9-38.3) Seconds pCO2 (35-45) mm/Hg pO2 (30-55) mm/Hg HCO3 (21-28) mmol/L ABG pH (7.35-7.45) ABG Total CO2 (22-28) mmol.L ABG O2 Saturation (95-98) % ABG Base Excess (-2.0-3.0) mmol/L ABG Potassium (3.6-5.2) mmol/L VBG pH (7.32-7.43) VBG pCO2 (40-60) VBG HCO3 (21-28) mmol/l VBG Total CO2 (22-28) mmol.L VBG O2 Sat (Calc) (40-65) % VBG Base Excess (0.0-2.0) mmol/L VBG Potassium (3.6-5.2) mmol/L Glucose (65-105) mg/dl Lactate (0.7-2.1) mmol/L FiO2 % Crit Value Called To Crit Value Called By Blood Gas Notified Time Sodium (132-148) mmol/L Potassium (3.6-5.0) mmol/L Chloride (98-107) mmol/L Carbon Dioxide (21-33) mmol/L Anion Gap (10-20) BUN (7-21) mg/dL Creatinine (0.7-1.2) mg/dl Est GFR ( Amer) Est GFR (Non-Af Amer) POC Glucose (mg/dL) > 500 H* (65-110) mg/dL Random Glucose (70-110) mg/dL Calcium (8.4-10.5) mg/dL Phosphorus (2.5-4.5) mg/dL Magnesium (1.7-2.2) mg/dL Total Bilirubin (0.2-1.3) mg/dL AST (14-36) U/L ALT (7-56) U/L Alkaline Phosphatase (38-126) U/L Troponin I ng/mL Total Protein (5.8-8.3) g/dL Albumin (3.0-4.8) g/dL Globulin gm/dL Albumin/Globulin Ratio (1.1-1.8) Triglycerides (35-160) mg/dL Cholesterol (130-200) mg/dL LDL Cholesterol Direct (0-129) mg/dL HDL Cholesterol (29-60) mg/dL Amylase (35-125) U/L Lipase (23-300) U/L TSH 3rd Generation (0.46-4.68) mIU/mL Arterial Blood Potassium (3.6-5.2) mmol/L Venous Blood Potassium (3.6-5.2) mmol/L Laboratory Results - last 24 hr 09/06/18 09/06/18 09/06/18 18:13 18:45 18:45 WBC 8.4 RBC 3.89 Hgb 11.4 L Hct 34.5 L MCV 88.7 MCH 29.3 MCHC 33.0 RDW 13.2 Plt Count 223 MPV 10.1 Neut % (Auto) 80.9 H Lymph % (Auto) 16.1 L Bradford % (Auto) 2.6 Eos % (Auto) 0.2 L Baso % (Auto) 0.2 Lymph # (Auto) 1.4 Bradford # (Auto) 0.2 Eos # (Auto) 0.0 Baso # (Auto) 0.02 Absolute Neuts (auto) 6.79 H PT INR APTT pCO2 pO2 HCO3 ABG pH ABG Total CO2 ABG O2 Saturation ABG Base Excess ABG Potassium VBG pH VBG pCO2 VBG HCO3 VBG Total CO2 VBG O2 Sat (Calc) VBG Base Excess VBG Potassium Glucose Lactate FiO2 Crit Value Called To Crit Value Called By Blood Gas Notified Time Sodium 130 L Potassium 5.5 H Chloride 93 L Carbon Dioxide 13 L Anion Gap 30 H BUN 37 H Creatinine 1.6 H Est GFR ( Amer) 39 Est GFR (Non-Af Amer) 32 POC Glucose (mg/dL) > 500 H* Random Glucose 700 H* D Calcium 9.3 Phosphorus Magnesium 2.3 H Total Bilirubin 0.5 AST 23 ALT 10 Alkaline Phosphatase 158 H D Troponin I Total Protein 8.4 H Albumin 4.5 Globulin 3.9 Albumin/Globulin Ratio 1.2 Triglycerides Cholesterol LDL Cholesterol Direct HDL Cholesterol Amylase Lipase TSH 3rd Generation Arterial Blood Potassium Venous Blood Potassium 09/06/18 09/06/18 09/06/18 18:45 19:14 19:30 WBC RBC Hgb Hct MCV MCH MCHC RDW Plt Count MPV Neut % (Auto) Lymph % (Auto) Bradford % (Auto) Eos % (Auto) Baso % (Auto) Lymph # (Auto) Bradford # (Auto) Eos # (Auto) Baso # (Auto) Absolute Neuts (auto) PT 11.9 INR 1.07 APTT 31.7 pCO2 29 L pO2 41 94.0 HCO3 10.1 L ABG pH 7.15 L* ABG Total CO2 11.0 L ABG O2 Saturation 98.3 H ABG Base Excess -17.4 L ABG Potassium 5.0 VBG pH 7.15 L* VBG pCO2 39.0 L VBG HCO3 13.6 L VBG Total CO2 14.8 L VBG O2 Sat (Calc) 73.8 H VBG Base Excess -14.6 L VBG Potassium 5.5 H Glucose > 750 H* D 701 H* Lactate 2.3 H 1.5 FiO2 21.0 28.0 Crit Value Called To Tabitha tatum Crit Value Called By [facility] [id number] Blood Gas Notified Time 1918 1939 Sodium 130.0 L 130.0 L Potassium Chloride 90.0 L 94.0 L Carbon Dioxide Anion Gap BUN Creatinine Est GFR ( Amer) Est GFR (Non-Af Amer) POC Glucose (mg/dL) Random Glucose Calcium Phosphorus Magnesium Total Bilirubin AST ALT Alkaline Phosphatase Troponin I Total Protein Albumin Globulin Albumin/Globulin Ratio Triglycerides Cholesterol LDL Cholesterol Direct HDL Cholesterol Amylase Lipase TSH 3rd Generation Arterial Blood Potassium 5.0 Venous Blood Potassium 5.5 H 09/06/18 09/06/18 09/06/18 20:12 21:18 22:07 WBC RBC Hgb Hct MCV MCH MCHC RDW Plt Count MPV Neut % (Auto) Lymph % (Auto) Bradford % (Auto) Eos % (Auto) Baso % (Auto) Lymph # (Auto) Bradford # (Auto) Eos # (Auto) Baso # (Auto) Absolute Neuts (auto) PT INR APTT pCO2 pO2 HCO3 ABG pH ABG Total CO2 ABG O2 Saturation ABG Base Excess ABG Potassium VBG pH VBG pCO2 VBG HCO3 VBG Total CO2 VBG O2 Sat (Calc) VBG Base Excess VBG Potassium Glucose Lactate FiO2 Crit Value Called To Crit Value Called By Blood Gas Notified Time Sodium Potassium Chloride Carbon Dioxide Anion Gap BUN Creatinine Est GFR ( Amer) Est GFR (Non-Af Amer) POC Glucose (mg/dL) > 500 H* 490 H* 439 H* Random Glucose Calcium Phosphorus Magnesium Total Bilirubin AST ALT Alkaline Phosphatase Troponin I Total Protein Albumin Globulin Albumin/Globulin Ratio Triglycerides Cholesterol LDL Cholesterol Direct HDL Cholesterol Amylase Lipase TSH 3rd Generation Arterial Blood Potassium Venous Blood Potassium 09/06/18 09/06/18 09/06/18 22:46 22:46 23:17 WBC RBC Hgb Hct MCV MCH MCHC RDW Plt Count MPV Neut % (Auto) Lymph % (Auto) Bradford % (Auto) Eos % (Auto) Baso % (Auto) Lymph # (Auto) Bradford # (Auto) Eos # (Auto) Baso # (Auto) Absolute Neuts (auto) PT INR APTT pCO2 pO2 40 HCO3 ABG pH ABG Total CO2 ABG O2 Saturation ABG Base Excess ABG Potassium VBG pH 7.10 L* VBG pCO2 42.0 VBG HCO3 13.0 L VBG Total CO2 14.3 L VBG O2 Sat (Calc) 73.6 H VBG Base Excess -16.1 L VBG Potassium 4.8 Glucose 465 H* D Lactate 1.9 FiO2 21.0 Crit Value Called To Bobbi hogan government affairs specialist Crit Value Called By [facility] Blood Gas Notified Time 2312 Sodium 136 138.0 Potassium 4.9 Chloride 103 98.0 Carbon Dioxide 15 L Anion Gap 23 H BUN 35 H Creatinine 1.3 H Est GFR ( Amer) 50 Est GFR (Non-Af Amer) 41 POC Glucose (mg/dL) 343 H Random Glucose 429 H* D Calcium 8.8 Phosphorus Magnesium Total Bilirubin AST ALT Alkaline Phosphatase Troponin I Total Protein Albumin Globulin Albumin/Globulin Ratio Triglycerides Cholesterol LDL Cholesterol Direct HDL Cholesterol Amylase Lipase TSH 3rd Generation Arterial Blood Potassium Venous Blood Potassium 4.8 09/06/18 09/07/18 09/07/18 23:49 00:57 01:56 WBC RBC Hgb Hct MCV MCH MCHC RDW Plt Count MPV Neut % (Auto) Lymph % (Auto) Bradford % (Auto) Eos % (Auto) Baso % (Auto) Lymph # (Auto) Bradford # (Auto) Eos # (Auto) Baso # (Auto) Absolute Neuts (auto) PT INR APTT pCO2 pO2 HCO3 ABG pH ABG Total CO2 ABG O2 Saturation ABG Base Excess ABG Potassium VBG pH VBG pCO2 VBG HCO3 VBG Total CO2 VBG O2 Sat (Calc) VBG Base Excess VBG Potassium Glucose Lactate FiO2 Crit Value Called To Crit Value Called By Blood Gas Notified Time Sodium Potassium Chloride Carbon Dioxide Anion Gap BUN Creatinine Est GFR ( Amer) Est GFR (Non-Af Amer) POC Glucose (mg/dL) 363 H 292 H 242 H Random Glucose Calcium Phosphorus Magnesium Total Bilirubin AST ALT Alkaline Phosphatase Troponin I Total Protein Albumin Globulin Albumin/Globulin Ratio Triglycerides Cholesterol LDL Cholesterol Direct HDL Cholesterol Amylase Lipase TSH 3rd Generation Arterial Blood Potassium Venous Blood Potassium 09/07/18 09/07/18 09/07/18 02:05 02:52 03:58 WBC RBC Hgb Hct MCV MCH MCHC RDW Plt Count MPV Neut % (Auto) Lymph % (Auto) Bradford % (Auto) Eos % (Auto) Baso % (Auto) Lymph # (Auto) Bradford # (Auto) Eos # (Auto) Baso # (Auto) Absolute Neuts (auto) PT INR APTT pCO2 pO2 HCO3 ABG pH ABG Total CO2 ABG O2 Saturation ABG Base Excess ABG Potassium VBG pH VBG pCO2 VBG HCO3 VBG Total CO2 VBG O2 Sat (Calc) VBG Base Excess VBG Potassium Glucose Lactate FiO2 Crit Value Called To Crit Value Called By Blood Gas Notified Time Sodium 139 Potassium 4.1 Chloride 105 Carbon Dioxide 20 L Anion Gap 17 BUN 31 H Creatinine 1.2 Est GFR ( Amer) 55 Est GFR (Non-Af Amer) 45 POC Glucose (mg/dL) 219 H 172 H Random Glucose 210 H Calcium 8.5 Phosphorus Magnesium Total Bilirubin AST ALT Alkaline Phosphatase Troponin I Total Protein Albumin Globulin Albumin/Globulin Ratio Triglycerides Cholesterol LDL Cholesterol Direct HDL Cholesterol Amylase Lipase TSH 3rd Generation Arterial Blood Potassium Venous Blood Potassium 09/07/18 09/07/18 09/07/18 04:56 05:25 05:25 WBC RBC Hgb Hct MCV MCH MCHC RDW Plt Count MPV Neut % (Auto) Lymph % (Auto) Bradford % (Auto) Eos % (Auto) Baso % (Auto) Lymph # (Auto) Bradford # (Auto) Eos # (Auto) Baso # (Auto) Absolute Neuts (auto) PT INR APTT pCO2 pO2 HCO3 ABG pH ABG Total CO2 ABG O2 Saturation ABG Base Excess ABG Potassium VBG pH VBG pCO2 VBG HCO3 VBG Total CO2 VBG O2 Sat (Calc) VBG Base Excess VBG Potassium Glucose Lactate FiO2 Crit Value Called To Crit Value Called By Blood Gas Notified Time Sodium Potassium Chloride Carbon Dioxide Anion Gap BUN Creatinine Est GFR ( Amer) Est GFR (Non-Af Amer) POC Glucose (mg/dL) 154 H Random Glucose Calcium Phosphorus Magnesium Total Bilirubin AST ALT Alkaline Phosphatase Troponin I Total Protein Albumin Globulin Albumin/Globulin Ratio Triglycerides 129 Cholesterol 167 LDL Cholesterol Direct 57 HDL Cholesterol 62 H Amylase Lipase TSH 3rd Generation 2.18 Arterial Blood Potassium Venous Blood Potassium 09/07/18 09/07/18 09/07/18 05:25 05:25 05:49 WBC 8.8 RBC 3.97 Hgb 11.5 L Hct 34.4 L MCV 86.6 MCH 29.0 MCHC 33.4 RDW 13.2 Plt Count 229 MPV 9.8 Neut % (Auto) Lymph % (Auto) Bradford % (Auto) Eos % (Auto) Baso % (Auto) Lymph # (Auto) Bradford # (Auto) Eos # (Auto) Baso # (Auto) Absolute Neuts (auto) PT INR APTT pCO2 pO2 HCO3 ABG pH ABG Total CO2 ABG O2 Saturation ABG Base Excess ABG Potassium VBG pH VBG pCO2 VBG HCO3 VBG Total CO2 VBG O2 Sat (Calc) VBG Base Excess VBG Potassium Glucose Lactate FiO2 Crit Value Called To Crit Value Called By Blood Gas Notified Time Sodium 140 Potassium 3.8 Chloride 106 Carbon Dioxide 24 Anion Gap 13 BUN 28 H Creatinine 1.1 Est GFR ( Amer) > 60 Est GFR (Non-Af Amer) 50 POC Glucose (mg/dL) 156 H Random Glucose 144 H Calcium 8.5 Phosphorus 2.8 Magnesium 2.2 Total Bilirubin 0.4 AST 25 ALT 10 Alkaline Phosphatase 122 Troponin I Total Protein 7.8 Albumin 3.7 Globulin 4.1 Albumin/Globulin Ratio 0.9 L Triglycerides Cholesterol LDL Cholesterol Direct HDL Cholesterol Amylase Lipase TSH 3rd Generation Arterial Blood Potassium Venous Blood Potassium 09/07/18 09/07/18 07:06 07:56 WBC RBC Hgb Hct MCV MCH MCHC RDW Plt Count MPV Neut % (Auto) Lymph % (Auto) Bradford % (Auto) Eos % (Auto) Baso % (Auto) Lymph # (Auto) Bradford # (Auto) Eos # (Auto) Baso # (Auto) Absolute Neuts (auto) PT INR APTT pCO2 pO2 HCO3 ABG pH ABG Total CO2 ABG O2 Saturation ABG Base Excess ABG Potassium VBG pH VBG pCO2 VBG HCO3 VBG Total CO2 VBG O2 Sat (Calc) VBG Base Excess VBG Potassium Glucose Lactate FiO2 Crit Value Called To Crit Value Called By Blood Gas Notified Time Sodium Potassium Chloride Carbon Dioxide Anion Gap BUN Creatinine Est GFR ( Amer) Est GFR (Non-Af Amer) POC Glucose (mg/dL) 225 H Random Glucose Calcium Phosphorus Magnesium Total Bilirubin AST ALT Alkaline Phosphatase Troponin I 0.06 D Total Protein Albumin Globulin Albumin/Globulin Ratio Triglycerides Cholesterol LDL Cholesterol Direct HDL Cholesterol Amylase 251 H Lipase 49 TSH 3rd Generation Arterial Blood Potassium Venous Blood Potassium Radiology Impressions: Radiology Impressions Chest X-Ray 09/06/18 19:54 IMPRESSION: No active disease. EKG/Cardiology Studies: Cardiology / EKG Studies 09/06/18 18:57 EKG [ELECTROCARDIOGRAM] Stat Comment: Reason For Exam: HIGH BLOOD SUGAR Fingerstick Blood Sugar Results: 225 Critical Care Progress Note - Nutrition Nutrition: Nutrition Category Date Time Status Consistent Carbohydrate [DIET] Diets 09/06/18 Breakfast Ordered Assessment/Plan - Assessment and Plan (Free Text) Assessment: Pt is a 63 yo female with a PMH of DM, HTN, and dementia who presents to the ED with AMS, sent in by PMD Dr Padilla for hyperglycemia. Plan: Neuro/ Psyc - Bipolar/ Schizophrenia, Dementia - hold meds at this time Cardio - HTN, CAD, HLD - trop negative x1 - lipitor, coreg, losartan Pulm - ABG on admission: /7.15 GI - Vomiting, which has resolved - LFTs WNL - pantoprazole - carb consistent diet Renal - BUN/Cr 28/1.1 - K wnl, continue to monitor Heme - continue to monitor H/H - Hgb 11.5 - INR 1.07 ID - no leukocytosis - follow up blood cultures Endocrine - DKA, DM - pt is likely non compliant with medications - insulin drip has been discontinued - anion gap has closed - random glucose 144 - levemir 30 HS - lispro 8 AC - Endo consulted, Dr Carrillo, following Dispo: pt to be transferred out of ICU to med surg Pt seen, examined, assessment and plan discussed with Dr Tara Samuels PGY1 - Date & Time Date: 09/07/18 Time: 10:56 <Jonny Pacheco - Last Filed: 09/07/18 11:23> CCU Objective - Vital Signs / Intake & Output Vital Signs (Last 4 hours): Vital Signs Pulse Resp BP Pulse Ox 09/07/18 10:52 90 134/77 09/07/18 09:00 89 76 H 158/62 H 09/07/18 08:58 61 51 H 09/07/18 08:40 115 H 25 H 99 09/07/18 08:30 90 20 98 09/07/18 08:20 84 17 98 09/07/18 08:10 93 H 96 09/07/18 08:00 90 154/108 H 99 09/07/18 07:50 87 21 99 09/07/18 07:40 90 25 H 99 09/07/18 07:30 93 H 19 98 09/07/18 07:21 91 H 15 99 Intake and Output (Last 8hrs): Intake & Output 09/06/18 09/07/18 09/07/18 22:59 06:59 14:59 Intake Total 12 1393 Balance 12 1393 Weight 159 lb 7 oz Intake: IV 12 1393 0.9 nsaline 600 0.9nsaline 250 D51/2nsaline 375 d51/2 ns + KCL 100 regular Insulin 51 Other: Voiding Method Incontinent # Bowel Movements 0 - Medications Active Medications: Active Medications Generic Name Dose Route Start Last Admin Trade Name Freq PRN Reason Stop Dose Admin Atorvastatin Calcium 20 mg 09/07/18 17:00 Lipitor PO DIN LELIA Carvedilol 25 mg 09/07/18 10:00 09/07/18 10:52 Coreg PO 25 mg BID LELIA Administration Clopidogrel Bisulfate 75 mg 09/07/18 10:00 09/07/18 10:51 Plavix PO 75 mg DAILY LELIA Administration Dextrose 0 ml 09/06/18 19:41 Dextrose 50% Inj IV STAT PRN Hypoglycemia Protocol Protocol Heparin Sodium (Porcine) 5,000 units 09/06/18 22:00 09/07/18 06:16 Heparin SC 5,000 units Q8 LELIA Administration Protocol Dextrose 1,000 mls @ 0 mls/hr 09/06/18 19:41 Dextrose 5% In Water 1000 Ml IV .Q0M PRN Hypoglycemia Protocol Protocol Per Protocol Potassium Chloride 40 meq/ 1,020 mls @ 100 mls/hr 09/07/18 05:30 09/07/18 05:30 Dextrose/Sodium Chloride IV 100 mls/hr .[id number] LELAI Administration Insulin Detemir 30 unit 09/07/18 22:00 Levemir SC HS LELIA Insulin Human Lispro 8 units 09/07/18 07:30 09/07/18 11:10 Humalog SC 8 u AC LELIA Administration Insulin Human Lispro 0 units 09/07/18 07:30 09/07/18 11:10 Humalog Low SC 4 u ACHS LELIA Administration Protocol Losartan Potassium 50 mg 09/07/18 10:00 09/07/18 10:52 Cozaar PO 50 mg DAILY LELIA Administration Pantoprazole Sodium 40 mg 09/07/18 07:30 09/07/18 06:49 Protonix Ec Tab PO 40 mg ACB LELIA Administration - Patient Studies Lab Studies: Lab Studies 09/07/18 09/07/18 09/07/18 Range/Units 07:56 07:06 05:49 WBC (4.5-11.0) 10^3/uL RBC (3.5-6.1) 10^6/uL Hgb (12.0-16.0) g/dL Hct (36.0-48.0) % MCV (80.0-105.0) fl MCH (25.0-35.0) pg MCHC (31.0-37.0) g/dl RDW (11.5-14.5) % Plt Count (120.0-450.0) 10^3/uL MPV (7.0-11.0) fl Neut % (Auto) (50.0-68.0) % Lymph % (Auto) (22.0-35.0) % Bradford % (Auto) (1.0-6.0) % Eos % (Auto) (1.5-5.0) % Baso % (Auto) (0.0-3.0) % Lymph # (Auto) (1.2-3.4) Bradford # (Auto) (0.1-0.6) Eos # (Auto) (0.0-0.7) Baso # (Auto) (0.0-2.0) K/mm3 Absolute Neuts (auto) (1.4-6.5) PT (9.4-12.5) SECONDS INR APTT (26.9-38.3) Seconds pCO2 (35-45) mm/Hg pO2 (30-55) mm/Hg HCO3 (21-28) mmol/L ABG pH (7.35-7.45) ABG Total CO2 (22-28) mmol.L ABG O2 Saturation (95-98) % ABG Base Excess (-2.0-3.0) mmol/L ABG Potassium (3.6-5.2) mmol/L VBG pH (7.32-7.43) VBG pCO2 (40-60) VBG HCO3 (21-28) mmol/l VBG Total CO2 (22-28) mmol.L VBG O2 Sat (Calc) (40-65) % VBG Base Excess (0.0-2.0) mmol/L VBG Potassium (3.6-5.2) mmol/L Glucose (65-105) mg/dl Lactate (0.7-2.1) mmol/L FiO2 % Crit Value Called To Crit Value Called By Blood Gas Notified Time Sodium (132-148) mmol/L Potassium (3.6-5.0) mmol/L Chloride (98-107) mmol/L Carbon Dioxide (21-33) mmol/L Anion Gap (10-20) BUN (7-21) mg/dL Creatinine (0.7-1.2) mg/dl Est GFR ( Amer) Est GFR (Non-Af Amer) POC Glucose (mg/dL) 225 H 156 H (65-110) mg/dL Random Glucose (70-110) mg/dL Calcium (8.4-10.5) mg/dL Phosphorus (2.5-4.5) mg/dL Magnesium (1.7-2.2) mg/dL Total Bilirubin (0.2-1.3) mg/dL AST (14-36) U/L ALT (7-56) U/L Alkaline Phosphatase (38-126) U/L Troponin I 0.06 D ng/mL Total Protein (5.8-8.3) g/dL Albumin (3.0-4.8) g/dL Globulin gm/dL Albumin/Globulin Ratio (1.1-1.8) Triglycerides (35-160) mg/dL Cholesterol (130-200) mg/dL LDL Cholesterol Direct (0-129) mg/dL HDL Cholesterol (29-60) mg/dL Amylase 251 H (35-125) U/L Lipase 49 (23-300) U/L TSH 3rd Generation (0.46-4.68) mIU/mL Arterial Blood Potassium (3.6-5.2) mmol/L Venous Blood Potassium (3.6-5.2) mmol/L 09/07/18 09/07/18 09/07/18 Range/Units 05:25 05:25 05:25 WBC 8.8 (4.5-11.0) 10^3/uL RBC 3.97 (3.5-6.1) 10^6/uL Hgb 11.5 L (12.0-16.0) g/dL Hct 34.4 L (36.0-48.0) % MCV 86.6 (80.0-105.0) fl MCH 29.0 (25.0-35.0) pg MCHC 33.4 (31.0-37.0) g/dl RDW 13.2 (11.5-14.5) % Plt Count 229 (120.0-450.0) 10^3/uL MPV 9.8 (7.0-11.0) fl Neut % (Auto) (50.0-68.0) % Lymph % (Auto) (22.0-35.0) % Bradford % (Auto) (1.0-6.0) % Eos % (Auto) (1.5-5.0) % Baso % (Auto) (0.0-3.0) % Lymph # (Auto) (1.2-3.4) Bradford # (Auto) (0.1-0.6) Eos # (Auto) (0.0-0.7) Baso # (Auto) (0.0-2.0) K/mm3 Absolute Neuts (auto) (1.4-6.5) PT (9.4-12.5) SECONDS INR APTT (26.9-38.3) Seconds pCO2 (35-45) mm/Hg pO2 (30-55) mm/Hg HCO3 (21-28) mmol/L ABG pH (7.35-7.45) ABG Total CO2 (22-28) mmol.L ABG O2 Saturation (95-98) % ABG Base Excess (-2.0-3.0) mmol/L ABG Potassium (3.6-5.2) mmol/L VBG pH (7.32-7.43) VBG pCO2 (40-60) VBG HCO3 (21-28) mmol/l VBG Total CO2 (22-28) mmol.L VBG O2 Sat (Calc) (40-65) % VBG Base Excess (0.0-2.0) mmol/L VBG Potassium (3.6-5.2) mmol/L Glucose (65-105) mg/dl Lactate (0.7-2.1) mmol/L FiO2 % Crit Value Called To Crit Value Called By Blood Gas Notified Time Sodium 140 (132-148) mmol/L Potassium 3.8 (3.6-5.0) mmol/L Chloride 106 (98-107) mmol/L Carbon Dioxide 24 (21-33) mmol/L Anion Gap 13 (10-20) BUN 28 H (7-21) mg/dL Creatinine 1.1 (0.7-1.2) mg/dl Est GFR ( Amer) > 60 Est GFR (Non-Af Amer) 50 POC Glucose (mg/dL) (65-110) mg/dL Random Glucose 144 H (70-110) mg/dL Calcium 8.5 (8.4-10.5) mg/dL Phosphorus 2.8 (2.5-4.5) mg/dL Magnesium 2.2 (1.7-2.2) mg/dL Total Bilirubin 0.4 (0.2-1.3) mg/dL AST 25 (14-36) U/L ALT 10 (7-56) U/L Alkaline Phosphatase 122 (38-126) U/L Troponin I ng/mL Total Protein 7.8 (5.8-8.3) g/dL Albumin 3.7 (3.0-4.8) g/dL Globulin 4.1 gm/dL Albumin/Globulin Ratio 0.9 L (1.1-1.8) Triglycerides (35-160) mg/dL Cholesterol (130-200) mg/dL LDL Cholesterol Direct (0-129) mg/dL HDL Cholesterol (29-60) mg/dL Amylase (35-125) U/L Lipase (23-300) U/L TSH 3rd Generation 2.18 (0.46-4.68) mIU/mL Arterial Blood Potassium (3.6-5.2) mmol/L Venous Blood Potassium (3.6-5.2) mmol/L 09/07/18 09/07/18 09/07/18 Range/Units 05:25 04:56 03:58 WBC (4.5-11.0) 10^3/uL RBC (3.5-6.1) 10^6/uL Hgb (12.0-16.0) g/dL Hct (36.0-48.0) % MCV (80.0-105.0) fl MCH (25.0-35.0) pg MCHC (31.0-37.0) g/dl RDW (11.5-14.5) % Plt Count (120.0-450.0) 10^3/uL MPV (7.0-11.0) fl Neut % (Auto) (50.0-68.0) % Lymph % (Auto) (22.0-35.0) % Bradford % (Auto) (1.0-6.0) % Eos % (Auto) (1.5-5.0) % Baso % (Auto) (0.0-3.0) % Lymph # (Auto) (1.2-3.4) Bradford # (Auto) (0.1-0.6) Eos # (Auto) (0.0-0.7) Baso # (Auto) (0.0-2.0) K/mm3 Absolute Neuts (auto) (1.4-6.5) PT (9.4-12.5) SECONDS INR APTT (26.9-38.3) Seconds pCO2 (35-45) mm/Hg pO2 (30-55) mm/Hg HCO3 (21-28) mmol/L ABG pH (7.35-7.45) ABG Total CO2 (22-28) mmol.L ABG O2 Saturation (95-98) % ABG Base Excess (-2.0-3.0) mmol/L ABG Potassium (3.6-5.2) mmol/L VBG pH (7.32-7.43) VBG pCO2 (40-60) VBG HCO3 (21-28) mmol/l VBG Total CO2 (22-28) mmol.L VBG O2 Sat (Calc) (40-65) % VBG Base Excess (0.0-2.0) mmol/L VBG Potassium (3.6-5.2) mmol/L Glucose (65-105) mg/dl Lactate (0.7-2.1) mmol/L FiO2 % Crit Value Called To Crit Value Called By Blood Gas Notified Time Sodium (132-148) mmol/L Potassium (3.6-5.0) mmol/L Chloride (98-107) mmol/L Carbon Dioxide (21-33) mmol/L Anion Gap (10-20) BUN (7-21) mg/dL Creatinine (0.7-1.2) mg/dl Est GFR ( Amer) Est GFR (Non-Af Amer) POC Glucose (mg/dL) 154 H 172 H (65-110) mg/dL Random Glucose (70-110) mg/dL Calcium (8.4-10.5) mg/dL Phosphorus (2.5-4.5) mg/dL Magnesium (1.7-2.2) mg/dL Total Bilirubin (0.2-1.3) mg/dL AST (14-36) U/L ALT (7-56) U/L Alkaline Phosphatase (38-126) U/L Troponin I ng/mL Total Protein (5.8-8.3) g/dL Albumin (3.0-4.8) g/dL Globulin gm/dL Albumin/Globulin Ratio (1.1-1.8) Triglycerides 129 (35-160) mg/dL Cholesterol 167 (130-200) mg/dL LDL Cholesterol Direct 57 (0-129) mg/dL HDL Cholesterol 62 H (29-60) mg/dL Amylase (35-125) U/L Lipase (23-300) U/L TSH 3rd Generation (0.46-4.68) mIU/mL Arterial Blood Potassium (3.6-5.2) mmol/L Venous Blood Potassium (3.6-5.2) mmol/L 09/07/18 09/07/18 09/07/18 Range/Units 02:52 02:05 01:56 WBC (4.5-11.0) 10^3/uL RBC (3.5-6.1) 10^6/uL Hgb (12.0-16.0) g/dL Hct (36.0-48.0) % MCV (80.0-105.0) fl MCH (25.0-35.0) pg MCHC (31.0-37.0) g/dl RDW (11.5-14.5) % Plt Count (120.0-450.0) 10^3/uL MPV (7.0-11.0) fl Neut % (Auto) (50.0-68.0) % Lymph % (Auto) (22.0-35.0) % Bradford % (Auto) (1.0-6.0) % Eos % (Auto) (1.5-5.0) % Baso % (Auto) (0.0-3.0) % Lymph # (Auto) (1.2-3.4) Bradford # (Auto) (0.1-0.6) Eos # (Auto) (0.0-0.7) Baso # (Auto) (0.0-2.0) K/mm3 Absolute Neuts (auto) (1.4-6.5) PT (9.4-12.5) SECONDS INR APTT (26.9-38.3) Seconds pCO2 (35-45) mm/Hg pO2 (30-55) mm/Hg HCO3 (21-28) mmol/L ABG pH (7.35-7.45) ABG Total CO2 (22-28) mmol.L ABG O2 Saturation (95-98) % ABG Base Excess (-2.0-3.0) mmol/L ABG Potassium (3.6-5.2) mmol/L VBG pH (7.32-7.43) VBG pCO2 (40-60) VBG HCO3 (21-28) mmol/l VBG Total CO2 (22-28) mmol.L VBG O2 Sat (Calc) (40-65) % VBG Base Excess (0.0-2.0) mmol/L VBG Potassium (3.6-5.2) mmol/L Glucose (65-105) mg/dl Lactate (0.7-2.1) mmol/L FiO2 % Crit Value Called To Crit Value Called By Blood Gas Notified Time Sodium 139 (132-148) mmol/L Potassium 4.1 (3.6-5.0) mmol/L Chloride 105 (98-107) mmol/L Carbon Dioxide 20 L (21-33) mmol/L Anion Gap 17 (10-20) BUN 31 H (7-21) mg/dL Creatinine 1.2 (0.7-1.2) mg/dl Est GFR ( Amer) 55 Est GFR (Non-Af Amer) 45 POC Glucose (mg/dL) 219 H 242 H (65-110) mg/dL Random Glucose 210 H (70-110) mg/dL Calcium 8.5 (8.4-10.5) mg/dL Phosphorus (2.5-4.5) mg/dL Magnesium (1.7-2.2) mg/dL Total Bilirubin (0.2-1.3) mg/dL AST (14-36) U/L ALT (7-56) U/L Alkaline Phosphatase (38-126) U/L Troponin I ng/mL Total Protein (5.8-8.3) g/dL Albumin (3.0-4.8) g/dL Globulin gm/dL Albumin/Globulin Ratio (1.1-1.8) Triglycerides (35-160) mg/dL Cholesterol (130-200) mg/dL LDL Cholesterol Direct (0-129) mg/dL HDL Cholesterol (29-60) mg/dL Amylase (35-125) U/L Lipase (23-300) U/L TSH 3rd Generation (0.46-4.68) mIU/mL Arterial Blood Potassium (3.6-5.2) mmol/L Venous Blood Potassium (3.6-5.2) mmol/L 09/07/18 09/06/18 09/06/18 Range/Units 00:57 23:49 23:17 WBC (4.5-11.0) 10^3/uL RBC (3.5-6.1) 10^6/uL Hgb (12.0-16.0) g/dL Hct (36.0-48.0) % MCV (80.0-105.0) fl MCH (25.0-35.0) pg MCHC (31.0-37.0) g/dl RDW (11.5-14.5) % Plt Count (120.0-450.0) 10^3/uL MPV (7.0-11.0) fl Neut % (Auto) (50.0-68.0) % Lymph % (Auto) (22.0-35.0) % Bradford % (Auto) (1.0-6.0) % Eos % (Auto) (1.5-5.0) % Baso % (Auto) (0.0-3.0) % Lymph # (Auto) (1.2-3.4) Bradford # (Auto) (0.1-0.6) Eos # (Auto) (0.0-0.7) Baso # (Auto) (0.0-2.0) K/mm3 Absolute Neuts (auto) (1.4-6.5) PT (9.4-12.5) SECONDS INR APTT (26.9-38.3) Seconds pCO2 (35-45) mm/Hg pO2 (30-55) mm/Hg HCO3 (21-28) mmol/L ABG pH (7.35-7.45) ABG Total CO2 (22-28) mmol.L ABG O2 Saturation (95-98) % ABG Base Excess (-2.0-3.0) mmol/L ABG Potassium (3.6-5.2) mmol/L VBG pH (7.32-7.43) VBG pCO2 (40-60) VBG HCO3 (21-28) mmol/l VBG Total CO2 (22-28) mmol.L VBG O2 Sat (Calc) (40-65) % VBG Base Excess (0.0-2.0) mmol/L VBG Potassium (3.6-5.2) mmol/L Glucose (65-105) mg/dl Lactate (0.7-2.1) mmol/L FiO2 % Crit Value Called To Crit Value Called By Blood Gas Notified Time Sodium (132-148) mmol/L Potassium (3.6-5.0) mmol/L Chloride (98-107) mmol/L Carbon Dioxide (21-33) mmol/L Anion Gap (10-20) BUN (7-21) mg/dL Creatinine (0.7-1.2) mg/dl Est GFR ( Amer) Est GFR (Non-Af Amer) POC Glucose (mg/dL) 292 H 363 H 343 H (65-110) mg/dL Random Glucose (70-110) mg/dL Calcium (8.4-10.5) mg/dL Phosphorus (2.5-4.5) mg/dL Magnesium (1.7-2.2) mg/dL Total Bilirubin (0.2-1.3) mg/dL AST (14-36) U/L ALT (7-56) U/L Alkaline Phosphatase (38-126) U/L Troponin I ng/mL Total Protein (5.8-8.3) g/dL Albumin (3.0-4.8) g/dL Globulin gm/dL Albumin/Globulin Ratio (1.1-1.8) Triglycerides (35-160) mg/dL Cholesterol (130-200) mg/dL LDL Cholesterol Direct (0-129) mg/dL HDL Cholesterol (29-60) mg/dL Amylase (35-125) U/L Lipase (23-300) U/L TSH 3rd Generation (0.46-4.68) mIU/mL Arterial Blood Potassium (3.6-5.2) mmol/L Venous Blood Potassium (3.6-5.2) mmol/L 09/06/18 09/06/18 09/06/18 Range/Units 22:46 22:46 22:07 WBC (4.5-11.0) 10^3/uL RBC (3.5-6.1) 10^6/uL Hgb (12.0-16.0) g/dL Hct (36.0-48.0) % MCV (80.0-105.0) fl MCH (25.0-35.0) pg MCHC (31.0-37.0) g/dl RDW (11.5-14.5) % Plt Count (120.0-450.0) 10^3/uL MPV (7.0-11.0) fl Neut % (Auto) (50.0-68.0) % Lymph % (Auto) (22.0-35.0) % Bradford % (Auto) (1.0-6.0) % Eos % (Auto) (1.5-5.0) % Baso % (Auto) (0.0-3.0) % Lymph # (Auto) (1.2-3.4) Bradford # (Auto) (0.1-0.6) Eos # (Auto) (0.0-0.7) Baso # (Auto) (0.0-2.0) K/mm3 Absolute Neuts (auto) (1.4-6.5) PT (9.4-12.5) SECONDS INR APTT (26.9-38.3) Seconds pCO2 (35-45) mm/Hg pO2 40 (30-55) mm/Hg HCO3 (21-28) mmol/L ABG pH (7.35-7.45) ABG Total CO2 (22-28) mmol.L ABG O2 Saturation (95-98) % ABG Base Excess (-2.0-3.0) mmol/L ABG Potassium (3.6-5.2) mmol/L VBG pH 7.10 L* (7.32-7.43) VBG pCO2 42.0 (40-60) VBG HCO3 13.0 L (21-28) mmol/l VBG Total CO2 14.3 L (22-28) mmol.L VBG O2 Sat (Calc) 73.6 H (40-65) % VBG Base Excess -16.1 L (0.0-2.0) mmol/L VBG Potassium 4.8 (3.6-5.2) mmol/L Glucose 465 H* D (65-105) mg/dl Lactate 1.9 (0.7-2.1) mmol/L FiO2 21.0 % Crit Value Called To Bobbi hogan government affairs specialist Crit Value Called By [facility] Blood Gas Notified Time 2312 Sodium 138.0 136 (132-148) mmol/L Potassium 4.9 (3.6-5.0) mmol/L Chloride 98.0 103 (98-107) mmol/L Carbon Dioxide 15 L (21-33) mmol/L Anion Gap 23 H (10-20) BUN 35 H (7-21) mg/dL Creatinine 1.3 H (0.7-1.2) mg/dl Est GFR ( Amer) 50 Est GFR (Non-Af Amer) 41 POC Glucose (mg/dL) 439 H* (65-110) mg/dL Random Glucose 429 H* D (70-110) mg/dL Calcium 8.8 (8.4-10.5) mg/dL Phosphorus (2.5-4.5) mg/dL Magnesium (1.7-2.2) mg/dL Total Bilirubin (0.2-1.3) mg/dL AST (14-36) U/L ALT (7-56) U/L Alkaline Phosphatase (38-126) U/L Troponin I ng/mL Total Protein (5.8-8.3) g/dL Albumin (3.0-4.8) g/dL Globulin gm/dL Albumin/Globulin Ratio (1.1-1.8) Triglycerides (35-160) mg/dL Cholesterol (130-200) mg/dL LDL Cholesterol Direct (0-129) mg/dL HDL Cholesterol (29-60) mg/dL Amylase (35-125) U/L Lipase (23-300) U/L TSH 3rd Generation (0.46-4.68) mIU/mL Arterial Blood Potassium (3.6-5.2) mmol/L Venous Blood Potassium 4.8 (3.6-5.2) mmol/L 09/06/18 09/06/18 09/06/18 Range/Units 21:18 20:12 19:30 WBC (4.5-11.0) 10^3/uL RBC (3.5-6.1) 10^6/uL Hgb (12.0-16.0) g/dL Hct (36.0-48.0) % MCV (80.0-105.0) fl MCH (25.0-35.0) pg MCHC (31.0-37.0) g/dl RDW (11.5-14.5) % Plt Count (120.0-450.0) 10^3/uL MPV (7.0-11.0) fl Neut % (Auto) (50.0-68.0) % Lymph % (Auto) (22.0-35.0) % Bradford % (Auto) (1.0-6.0) % Eos % (Auto) (1.5-5.0) % Baso % (Auto) (0.0-3.0) % Lymph # (Auto) (1.2-3.4) Bradford # (Auto) (0.1-0.6) Eos # (Auto) (0.0-0.7) Baso # (Auto) (0.0-2.0) K/mm3 Absolute Neuts (auto) (1.4-6.5) PT (9.4-12.5) SECONDS INR APTT (26.9-38.3) Seconds pCO2 29 L (35-45) mm/Hg pO2 94.0 (30-55) mm/Hg HCO3 10.1 L (21-28) mmol/L ABG pH 7.15 L* (7.35-7.45) ABG Total CO2 11.0 L (22-28) mmol.L ABG O2 Saturation 98.3 H (95-98) % ABG Base Excess -17.4 L (-2.0-3.0) mmol/L ABG Potassium 5.0 (3.6-5.2) mmol/L VBG pH (7.32-7.43) VBG pCO2 (40-60) VBG HCO3 (21-28) mmol/l VBG Total CO2 (22-28) mmol.L VBG O2 Sat (Calc) (40-65) % VBG Base Excess (0.0-2.0) mmol/L VBG Potassium (3.6-5.2) mmol/L Glucose 701 H* (65-105) mg/dl Lactate 1.5 (0.7-2.1) mmol/L FiO2 28.0 % Crit Value Called To [facility] [place] [id number] Blood Gas Notified Time 194 Sodium 130.0 L (132-148) mmol/L Potassium (3.6-5.0) mmol/L Chloride 94.0 L (98-107) mmol/L Carbon Dioxide (21-33) mmol/L Anion Gap (10-20) BUN (7-21) mg/dL Creatinine (0.7-1.2) mg/dl Est GFR ( Amer) Est GFR (Non-Af Amer) POC Glucose (mg/dL) 490 H* > 500 H* (65-110) mg/dL Random Glucose (70-110) mg/dL Calcium (8.4-10.5) mg/dL Phosphorus (2.5-4.5) mg/dL Magnesium (1.7-2.2) mg/dL Total Bilirubin (0.2-1.3) mg/dL AST (14-36) U/L ALT (7-56) U/L Alkaline Phosphatase (38-126) U/L Troponin I ng/mL Total Protein (5.8-8.3) g/dL Albumin (3.0-4.8) g/dL Globulin gm/dL Albumin/Globulin Ratio (1.1-1.8) Triglycerides (35-160) mg/dL Cholesterol (130-200) mg/dL LDL Cholesterol Direct (0-129) mg/dL HDL Cholesterol (29-60) mg/dL Amylase (35-125) U/L Lipase (23-300) U/L TSH 3rd Generation (0.46-4.68) mIU/mL Arterial Blood Potassium 5.0 (3.6-5.2) mmol/L Venous Blood Potassium (3.6-5.2) mmol/L 09/06/18 09/06/18 09/06/18 Range/Units 19:14 18:45 18:45 WBC (4.5-11.0) 10^3/uL RBC (3.5-6.1) 10^6/uL Hgb (12.0-16.0) g/dL Hct (36.0-48.0) % MCV (80.0-105.0) fl MCH (25.0-35.0) pg MCHC (31.0-37.0) g/dl RDW (11.5-14.5) % Plt Count (120.0-450.0) 10^3/uL MPV (7.0-11.0) fl Neut % (Auto) (50.0-68.0) % Lymph % (Auto) (22.0-35.0) % Bradford % (Auto) (1.0-6.0) % Eos % (Auto) (1.5-5.0) % Baso % (Auto) (0.0-3.0) % Lymph # (Auto) (1.2-3.4) Bradford # (Auto) (0.1-0.6) Eos # (Auto) (0.0-0.7) Baso # (Auto) (0.0-2.0) K/mm3 Absolute Neuts (auto) (1.4-6.5) PT 11.9 (9.4-12.5) SECONDS INR 1.07 APTT 31.7 (26.9-38.3) Seconds pCO2 (35-45) mm/Hg pO2 41 (30-55) mm/Hg HCO3 (21-28) mmol/L ABG pH (7.35-7.45) ABG Total CO2 (22-28) mmol.L ABG O2 Saturation (95-98) % ABG Base Excess (-2.0-3.0) mmol/L ABG Potassium (3.6-5.2) mmol/L VBG pH 7.15 L* (7.32-7.43) VBG pCO2 39.0 L (40-60) VBG HCO3 13.6 L (21-28) mmol/l VBG Total CO2 14.8 L (22-28) mmol.L VBG O2 Sat (Calc) 73.8 H (40-65) % VBG Base Excess -14.6 L (0.0-2.0) mmol/L VBG Potassium 5.5 H (3.6-5.2) mmol/L Glucose > 750 H* D (65-105) mg/dl Lactate 2.3 H (0.7-2.1) mmol/L FiO2 21.0 % Crit Value Called To Tabitha trivedi Crit Value Called By [facility] Blood Gas Notified Time 1918 Sodium 130.0 L 130 L (132-148) mmol/L Potassium 5.5 H (3.6-5.0) mmol/L Chloride 90.0 L 93 L (98-107) mmol/L Carbon Dioxide 13 L (21-33) mmol/L Anion Gap 30 H (10-20) BUN 37 H (7-21) mg/dL Creatinine 1.6 H (0.7-1.2) mg/dl Est GFR ( Amer) 39 Est GFR (Non-Af Amer) 32 POC Glucose (mg/dL) (65-110) mg/dL Random Glucose 700 H* D (70-110) mg/dL Calcium 9.3 (8.4-10.5) mg/dL Phosphorus (2.5-4.5) mg/dL Magnesium 2.3 H (1.7-2.2) mg/dL Total Bilirubin 0.5 (0.2-1.3) mg/dL AST 23 (14-36) U/L ALT 10 (7-56) U/L Alkaline Phosphatase 158 H D (38-126) U/L Troponin I ng/mL Total Protein 8.4 H (5.8-8.3) g/dL Albumin 4.5 (3.0-4.8) g/dL Globulin 3.9 gm/dL Albumin/Globulin Ratio 1.2 (1.1-1.8) Triglycerides (35-160) mg/dL Cholesterol (130-200) mg/dL LDL Cholesterol Direct (0-129) mg/dL HDL Cholesterol (29-60) mg/dL Amylase (35-125) U/L Lipase (23-300) U/L TSH 3rd Generation (0.46-4.68) mIU/mL Arterial Blood Potassium (3.6-5.2) mmol/L Venous Blood Potassium 5.5 H (3.6-5.2) mmol/L 09/06/18 09/06/18 Range/Units 18:45 18:13 WBC 8.4 (4.5-11.0) 10^3/uL RBC 3.89 (3.5-6.1) 10^6/uL Hgb 11.4 L (12.0-16.0) g/dL Hct 34.5 L (36.0-48.0) % MCV 88.7 (80.0-105.0) fl MCH 29.3 (25.0-35.0) pg MCHC 33.0 (31.0-37.0) g/dl RDW 13.2 (11.5-14.5) % Plt Count 223 (120.0-450.0) 10^3/uL MPV 10.1 (7.0-11.0) fl Neut % (Auto) 80.9 H (50.0-68.0) % Lymph % (Auto) 16.1 L (22.0-35.0) % Bradford % (Auto) 2.6 (1.0-6.0) % Eos % (Auto) 0.2 L (1.5-5.0) % Baso % (Auto) 0.2 (0.0-3.0) % Lymph # (Auto) 1.4 (1.2-3.4) Bradford # (Auto) 0.2 (0.1-0.6) Eos # (Auto) 0.0 (0.0-0.7) Baso # (Auto) 0.02 (0.0-2.0) K/mm3 Absolute Neuts (auto) 6.79 H (1.4-6.5) PT (9.4-12.5) SECONDS INR APTT (26.9-38.3) Seconds pCO2 (35-45) mm/Hg pO2 (30-55) mm/Hg HCO3 (21-28) mmol/L ABG pH (7.35-7.45) ABG Total CO2 (22-28) mmol.L ABG O2 Saturation (95-98) % ABG Base Excess (-2.0-3.0) mmol/L ABG Potassium (3.6-5.2) mmol/L VBG pH (7.32-7.43) VBG pCO2 (40-60) VBG HCO3 (21-28) mmol/l VBG Total CO2 (22-28) mmol.L VBG O2 Sat (Calc) (40-65) % VBG Base Excess (0.0-2.0) mmol/L VBG Potassium (3.6-5.2) mmol/L Glucose (65-105) mg/dl Lactate (0.7-2.1) mmol/L FiO2 % Crit Value Called To Crit Value Called By Blood Gas Notified Time Sodium (132-148) mmol/L Potassium (3.6-5.0) mmol/L Chloride (98-107) mmol/L Carbon Dioxide (21-33) mmol/L Anion Gap (10-20) BUN (7-21) mg/dL Creatinine (0.7-1.2) mg/dl Est GFR ( Amer) Est GFR (Non-Af Amer) POC Glucose (mg/dL) > 500 H* (65-110) mg/dL Random Glucose (70-110) mg/dL Calcium (8.4-10.5) mg/dL Phosphorus (2.5-4.5) mg/dL Magnesium (1.7-2.2) mg/dL Total Bilirubin (0.2-1.3) mg/dL AST (14-36) U/L ALT (7-56) U/L Alkaline Phosphatase (38-126) U/L Troponin I ng/mL Total Protein (5.8-8.3) g/dL Albumin (3.0-4.8) g/dL Globulin gm/dL Albumin/Globulin Ratio (1.1-1.8) Triglycerides (35-160) mg/dL Cholesterol (130-200) mg/dL LDL Cholesterol Direct (0-129) mg/dL HDL Cholesterol (29-60) mg/dL Amylase (35-125) U/L Lipase (23-300) U/L TSH 3rd Generation (0.46-4.68) mIU/mL Arterial Blood Potassium (3.6-5.2) mmol/L Venous Blood Potassium (3.6-5.2) mmol/L Laboratory Results - last 24 hr 09/06/18 09/06/18 09/06/18 18:13 18:45 18:45 WBC 8.4 RBC 3.89 Hgb 11.4 L Hct 34.5 L MCV 88.7 MCH 29.3 MCHC 33.0 RDW 13.2 Plt Count 223 MPV 10.1 Neut % (Auto) 80.9 H Lymph % (Auto) 16.1 L Bradford % (Auto) 2.6 Eos % (Auto) 0.2 L Baso % (Auto) 0.2 Lymph # (Auto) 1.4 Bradford # (Auto) 0.2 Eos # (Auto) 0.0 Baso # (Auto) 0.02 Absolute Neuts (auto) 6.79 H PT INR APTT pCO2 pO2 HCO3 ABG pH ABG Total CO2 ABG O2 Saturation ABG Base Excess ABG Potassium VBG pH VBG pCO2 VBG HCO3 VBG Total CO2 VBG O2 Sat (Calc) VBG Base Excess VBG Potassium Glucose Lactate FiO2 Crit Value Called To Crit Value Called By Blood Gas Notified Time Sodium 130 L Potassium 5.5 H Chloride 93 L Carbon Dioxide 13 L Anion Gap 30 H BUN 37 H Creatinine 1.6 H Est GFR ( Amer) 39 Est GFR (Non-Af Amer) 32 POC Glucose (mg/dL) > 500 H* Random Glucose 700 H* D Calcium 9.3 Phosphorus Magnesium 2.3 H Total Bilirubin 0.5 AST 23 ALT 10 Alkaline Phosphatase 158 H D Troponin I Total Protein 8.4 H Albumin 4.5 Globulin 3.9 Albumin/Globulin Ratio 1.2 Triglycerides Cholesterol LDL Cholesterol Direct HDL Cholesterol Amylase Lipase TSH 3rd Generation Arterial Blood Potassium Venous Blood Potassium 09/06/18 09/06/18 09/06/18 18:45 19:14 19:30 WBC RBC Hgb Hct MCV MCH MCHC RDW Plt Count MPV Neut % (Auto) Lymph % (Auto) Bradford % (Auto) Eos % (Auto) Baso % (Auto) Lymph # (Auto) Bradford # (Auto) Eos # (Auto) Baso # (Auto) Absolute Neuts (auto) PT 11.9 INR 1.07 APTT 31.7 pCO2 29 L pO2 41 94.0 HCO3 10.1 L ABG pH 7.15 L* ABG Total CO2 11.0 L ABG O2 Saturation 98.3 H ABG Base Excess -17.4 L ABG Potassium 5.0 VBG pH 7.15 L* VBG pCO2 39.0 L VBG HCO3 13.6 L VBG Total CO2 14.8 L VBG O2 Sat (Calc) 73.8 H VBG Base Excess -14.6 L VBG Potassium 5.5 H Glucose > 750 H* D 701 H* Lactate 2.3 H 1.5 FiO2 21.0 28.0 Crit Value Called To Tabitha tatum Crit Value Called By [facility] [id number] Blood Gas Notified Time 1918 1939 Sodium 130.0 L 130.0 L Potassium Chloride 90.0 L 94.0 L Carbon Dioxide Anion Gap BUN Creatinine Est GFR ( Amer) Est GFR (Non-Af Amer) POC Glucose (mg/dL) Random Glucose Calcium Phosphorus Magnesium Total Bilirubin AST ALT Alkaline Phosphatase Troponin I Total Protein Albumin Globulin Albumin/Globulin Ratio Triglycerides Cholesterol LDL Cholesterol Direct HDL Cholesterol Amylase Lipase TSH 3rd Generation Arterial Blood Potassium 5.0 Venous Blood Potassium 5.5 H 09/06/18 09/06/18 09/06/18 20:12 21:18 22:07 WBC RBC Hgb Hct MCV MCH MCHC RDW Plt Count MPV Neut % (Auto) Lymph % (Auto) Bradford % (Auto) Eos % (Auto) Baso % (Auto) Lymph # (Auto) Bradford # (Auto) Eos # (Auto) Baso # (Auto) Absolute Neuts (auto) PT INR APTT pCO2 pO2 HCO3 ABG pH ABG Total CO2 ABG O2 Saturation ABG Base Excess ABG Potassium VBG pH VBG pCO2 VBG HCO3 VBG Total CO2 VBG O2 Sat (Calc) VBG Base Excess VBG Potassium Glucose Lactate FiO2 Crit Value Called To Crit Value Called By Blood Gas Notified Time Sodium Potassium Chloride Carbon Dioxide Anion Gap BUN Creatinine Est GFR ( Amer) Est GFR (Non-Af Amer) POC Glucose (mg/dL) > 500 H* 490 H* 439 H* Random Glucose Calcium Phosphorus Magnesium Total Bilirubin AST ALT Alkaline Phosphatase Troponin I Total Protein Albumin Globulin Albumin/Globulin Ratio Triglycerides Cholesterol LDL Cholesterol Direct HDL Cholesterol Amylase Lipase TSH 3rd Generation Arterial Blood Potassium Venous Blood Potassium 09/06/18 09/06/18 09/06/18 22:46 22:46 23:17 WBC RBC Hgb Hct MCV MCH MCHC RDW Plt Count MPV Neut % (Auto) Lymph % (Auto) Bradford % (Auto) Eos % (Auto) Baso % (Auto) Lymph # (Auto) Bradford # (Auto) Eos # (Auto) Baso # (Auto) Absolute Neuts (auto) PT INR APTT pCO2 pO2 40 HCO3 ABG pH ABG Total CO2 ABG O2 Saturation ABG Base Excess ABG Potassium VBG pH 7.10 L* VBG pCO2 42.0 VBG HCO3 13.0 L VBG Total CO2 14.3 L VBG O2 Sat (Calc) 73.6 H VBG Base Excess -16.1 L VBG Potassium 4.8 Glucose 465 H* D Lactate 1.9 FiO2 21.0 Crit Value Called To Bobbi hogan government affairs specialist Crit Value Called By [facility] Blood Gas Notified Time 2312 Sodium 136 138.0 Potassium 4.9 Chloride 103 98.0 Carbon Dioxide 15 L Anion Gap 23 H BUN 35 H Creatinine 1.3 H Est GFR ( Amer) 50 Est GFR (Non-Af Amer) 41 POC Glucose (mg/dL) 343 H Random Glucose 429 H* D Calcium 8.8 Phosphorus Magnesium Total Bilirubin AST ALT Alkaline Phosphatase Troponin I Total Protein Albumin Globulin Albumin/Globulin Ratio Triglycerides Cholesterol LDL Cholesterol Direct HDL Cholesterol Amylase Lipase TSH 3rd Generation Arterial Blood Potassium Venous Blood Potassium 4.8 09/06/18 09/07/18 09/07/18 23:49 00:57 01:56 WBC RBC Hgb Hct MCV MCH MCHC RDW Plt Count MPV Neut % (Auto) Lymph % (Auto) Bradford % (Auto) Eos % (Auto) Baso % (Auto) Lymph # (Auto) Bradford # (Auto) Eos # (Auto) Baso # (Auto) Absolute Neuts (auto) PT INR APTT pCO2 pO2 HCO3 ABG pH ABG Total CO2 ABG O2 Saturation ABG Base Excess ABG Potassium VBG pH VBG pCO2 VBG HCO3 VBG Total CO2 VBG O2 Sat (Calc) VBG Base Excess VBG Potassium Glucose Lactate FiO2 Crit Value Called To Crit Value Called By Blood Gas Notified Time Sodium Potassium Chloride Carbon Dioxide Anion Gap BUN Creatinine Est GFR ( Amer) Est GFR (Non-Af Amer) POC Glucose (mg/dL) 363 H 292 H 242 H Random Glucose Calcium Phosphorus Magnesium Total Bilirubin AST ALT Alkaline Phosphatase Troponin I Total Protein Albumin Globulin Albumin/Globulin Ratio Triglycerides Cholesterol LDL Cholesterol Direct HDL Cholesterol Amylase Lipase TSH 3rd Generation Arterial Blood Potassium Venous Blood Potassium 09/07/18 09/07/18 09/07/18 02:05 02:52 03:58 WBC RBC Hgb Hct MCV MCH MCHC RDW Plt Count MPV Neut % (Auto) Lymph % (Auto) Bradford % (Auto) Eos % (Auto) Baso % (Auto) Lymph # (Auto) Bradford # (Auto) Eos # (Auto) Baso # (Auto) Absolute Neuts (auto) PT INR APTT pCO2 pO2 HCO3 ABG pH ABG Total CO2 ABG O2 Saturation ABG Base Excess ABG Potassium VBG pH VBG pCO2 VBG HCO3 VBG Total CO2 VBG O2 Sat (Calc) VBG Base Excess VBG Potassium Glucose Lactate FiO2 Crit Value Called To Crit Value Called By Blood Gas Notified Time Sodium 139 Potassium 4.1 Chloride 105 Carbon Dioxide 20 L Anion Gap 17 BUN 31 H Creatinine 1.2 Est GFR ( Amer) 55 Est GFR (Non-Af Amer) 45 POC Glucose (mg/dL) 219 H 172 H Random Glucose 210 H Calcium 8.5 Phosphorus Magnesium Total Bilirubin AST ALT Alkaline Phosphatase Troponin I Total Protein Albumin Globulin Albumin/Globulin Ratio Triglycerides Cholesterol LDL Cholesterol Direct HDL Cholesterol Amylase Lipase TSH 3rd Generation Arterial Blood Potassium Venous Blood Potassium 09/07/18 09/07/18 09/07/18 04:56 05:25 05:25 WBC RBC Hgb Hct MCV MCH MCHC RDW Plt Count MPV Neut % (Auto) Lymph % (Auto) Bradford % (Auto) Eos % (Auto) Baso % (Auto) Lymph # (Auto) Bradford # (Auto) Eos # (Auto) Baso # (Auto) Absolute Neuts (auto) PT INR APTT pCO2 pO2 HCO3 ABG pH ABG Total CO2 ABG O2 Saturation ABG Base Excess ABG Potassium VBG pH VBG pCO2 VBG HCO3 VBG Total CO2 VBG O2 Sat (Calc) VBG Base Excess VBG Potassium Glucose Lactate FiO2 Crit Value Called To Crit Value Called By Blood Gas Notified Time Sodium Potassium Chloride Carbon Dioxide Anion Gap BUN Creatinine Est GFR ( Amer) Est GFR (Non-Af Amer) POC Glucose (mg/dL) 154 H Random Glucose Calcium Phosphorus Magnesium Total Bilirubin AST ALT Alkaline Phosphatase Troponin I Total Protein Albumin Globulin Albumin/Globulin Ratio Triglycerides 129 Cholesterol 167 LDL Cholesterol Direct 57 HDL Cholesterol 62 H Amylase Lipase TSH 3rd Generation 2.18 Arterial Blood Potassium Venous Blood Potassium 09/07/18 09/07/18 09/07/18 05:25 05:25 05:49 WBC 8.8 RBC 3.97 Hgb 11.5 L Hct 34.4 L MCV 86.6 MCH 29.0 MCHC 33.4 RDW 13.2 Plt Count 229 MPV 9.8 Neut % (Auto) Lymph % (Auto) Bradford % (Auto) Eos % (Auto) Baso % (Auto) Lymph # (Auto) Bradford # (Auto) Eos # (Auto) Baso # (Auto) Absolute Neuts (auto) PT INR APTT pCO2 pO2 HCO3 ABG pH ABG Total CO2 ABG O2 Saturation ABG Base Excess ABG Potassium VBG pH VBG pCO2 VBG HCO3 VBG Total CO2 VBG O2 Sat (Calc) VBG Base Excess VBG Potassium Glucose Lactate FiO2 Crit Value Called To Crit Value Called By Blood Gas Notified Time Sodium 140 Potassium 3.8 Chloride 106 Carbon Dioxide 24 Anion Gap 13 BUN 28 H Creatinine 1.1 Est GFR ( Amer) > 60 Est GFR (Non-Af Amer) 50 POC Glucose (mg/dL) 156 H Random Glucose 144 H Calcium 8.5 Phosphorus 2.8 Magnesium 2.2 Total Bilirubin 0.4 AST 25 ALT 10 Alkaline Phosphatase 122 Troponin I Total Protein 7.8 Albumin 3.7 Globulin 4.1 Albumin/Globulin Ratio 0.9 L Triglycerides Cholesterol LDL Cholesterol Direct HDL Cholesterol Amylase Lipase TSH 3rd Generation Arterial Blood Potassium Venous Blood Potassium 09/07/18 09/07/18 07:06 07:56 WBC RBC Hgb Hct MCV MCH MCHC RDW Plt Count MPV Neut % (Auto) Lymph % (Auto) Bradford % (Auto) Eos % (Auto) Baso % (Auto) Lymph # (Auto) Bradford # (Auto) Eos # (Auto) Baso # (Auto) Absolute Neuts (auto) PT INR APTT pCO2 pO2 HCO3 ABG pH ABG Total CO2 ABG O2 Saturation ABG Base Excess ABG Potassium VBG pH VBG pCO2 VBG HCO3 VBG Total CO2 VBG O2 Sat (Calc) VBG Base Excess VBG Potassium Glucose Lactate FiO2 Crit Value Called To Crit Value Called By Blood Gas Notified Time Sodium Potassium Chloride Carbon Dioxide Anion Gap BUN Creatinine Est GFR ( Amer) Est GFR (Non-Af Amer) POC Glucose (mg/dL) 225 H Random Glucose Calcium Phosphorus Magnesium Total Bilirubin AST ALT Alkaline Phosphatase Troponin I 0.06 D Total Protein Albumin Globulin Albumin/Globulin Ratio Triglycerides Cholesterol LDL Cholesterol Direct HDL Cholesterol Amylase 251 H Lipase 49 TSH 3rd Generation Arterial Blood Potassium Venous Blood Potassium Radiology Impressions: Radiology Impressions Chest X-Ray 09/06/18 19:54 IMPRESSION: No active disease. EKG/Cardiology Studies: Cardiology / EKG Studies 09/06/18 18:57 EKG [ELECTROCARDIOGRAM] Stat Comment: Reason For Exam: HIGH BLOOD SUGAR Critical Care Progress Note - Nutrition Nutrition: Nutrition Category Date Time Status Consistent Carbohydrate [DIET] Diets 09/06/18 Breakfast Ordered Assessment/Plan - Assessment and Plan (Free Text) Plan: Patient seen and examined on rounds with resident, agree with note with following additions/exceptions: Patient is 63 yo female with a PMH of DM, HTN, and dementia, presented with DKA, unknown what precipitated it. No evidence of infection, UA pending, Trop neg Currently afebrile, HD stable comfortable in NAD, at baseline mental status AG has closed, bicarb now normal Insulin drip and IVF shut off Given Levemir Doing well DKA, resolved IDDM HTN Dementia Recommend: - supp o2 as needed, duonebs PRN - NO ID issues, obtain UA, Procal - BP control - Levemir, Sliding scale - follow up Endo - Lipitor, Coreg, Losartan - GI ppx - DVT ppx - Stable, transfer to med surg
--- NOTE | 2018-09-07 12:30 | CARD ---
APPROVED REPORT Date of service: 09/06/2018 EKG Measurement Heart [id number] MD [id number] <Conclusion> Normal sinus rhythm Nonspecific T wave abnormality Prolonged QT Abnormal ECG
--- NOTE | 2018-09-07 20:30 | PN ---
DATE: 09/07/2018 LOCATION: CCU 129, Room 4 SUBJECTIVE: This is a 63-year-old female with recent uncontrolled type 1 insulin-dependent diabetes presenting here with diabetic ketoacidosis and dehydration and has now improved clinically and metabolically as noted thereof. Her glycemic levels are fluctuating but improved, and the glucose levels today have ranged from 156-225 and 303 mg/dL. Her chemistry showed a BUN of 28, sodium 140, potassium 3.8, chloride 106, CO2 of 24, glucose 144, and creatinine 1.1. Her lipase is 49 and TSH is 2.18. The hemoglobin A1c is 13.1, which is extremely elevated and indicative of suboptimal metabolic control of her diabetic condition even prior to this admission. ASSESSMENT: This is a 63-year-old female with uncontrolled and decompensated type 1 insulin-dependent diabetes with diabetic ketoacidosis and dehydration and has improved clinically and metabolically as noted thereof. There is a very strong history of poor compliance and nonadherence to her insulin regimen as noted. PLAN OF MANAGEMENT: With the discontinuation of the insulin drip infusion, we will switch her over now to a more physiologic basal and bolus insulin drug combination as ordered. We will concur with the Humalog given as 80 units t.i.d. before meals as ordered. We will also start Levemir given as 30 units subcu at bedtime daily to start tonight. We will modify the coverage scale to obviate hypoglycemia and detailed orders have been given for a very low-dose correction scale with Humalog insulin as given. We will continue the IV hydration as given. We will also obtain serial chemistries and supplement accordingly as needed. We will follow. Polly Carrillo MD
[2018-09-07] MEDS: Insulin Detemir 100 units/ml Vial (Levemir) SC SCH (22:09)
--- NOTE | 2018-09-07 22:30 | HP ---
DATE OF EXAM: 09/07/2018 HISTORY OF PRESENT ILLNESS: The patient is a 63-year-old female with a history of type 1 diabetes mellitus who presented to the emergency department in diabetic ketoacidosis. The patient was given IV hydration as well as intravenous insulin and admitted to the Intensive Care Unit for further evaluation and management. Endocrinology consult has been called with Dr. Polly Carrillo. PAST MEDICAL HISTORY: The patient's past medical history includes hypertension, hypertensive cardiovascular disease, CHF, COPD and history of CVA in the remote past with no residual deficits. The patient has a history of bipolar disorder and chronic schizophrenia. PAST SURGICAL HISTORY: Includes back surgery in the remote past with lumbar laminectomy and fusion. The patient has a history of cholecystectomy, total abdominal hysterectomy and bilateral salpingo-oophorectomy. ALLERGIES: THE PATIENT'S ALLERGIES INCLUDE ASPIRIN, BENADRYL, STELAZINE AND CORTISONE. CURRENT MEDICATIONS: Include losartan 50 mg daily, Effexor 75 mg three times daily, Neurontin 100 mg three times daily, Plavix 75 mg daily, Topamax 100 mg twice daily, Toujeo 14 units subcutaneous a.c. and at bedtime. FAMILY HISTORY: Noncontributory. SOCIAL HISTORY: The patient has no history of tobacco or drug use. REVIEW OF SYSTEMS: The patient denies any chest pain, shortness of breath, swelling of the legs. There is no nausea, no vomiting. No jaundice, no diarrhea. No melena, no bright red blood per rectum. PHYSICAL EXAMINATION GENERAL: The patient is a well-developed, moderately obese female in no acute distress. VITAL SIGNS: Blood pressure 121/63, temperature 98.7, pulse 91, respiratory rate 20. HEENT: Head is normocephalic, atraumatic. Pupils equal, round, reactive to light. Extraocular movements intact. NECK: Supple with no thyromegaly. No carotid bruit. No adenopathy. LUNGS: Clear. HEART: Regular rate and rhythm. ABDOMEN: Soft, nontender. Bowel sounds are normoactive. EXTREMITIES: Without cyanosis, clubbing or edema. NEUROLOGIC: The patient is awake and oriented x3 without focal sensory or motor deficits. SKIN: Warm and dry. LABORATORY DATA: WBC is 8.8, hemoglobin 11.5, hematocrit 34.4. Sodium 140, potassium 3.8, chloride 106, CO2 of 24, BUN 28, creatinine 1.1, glucose is 144. Chest x-ray shows no active disease. IMPRESSION 1. Diabetic ketoacidosis. 2. Type 1 diabetes mellitus. 3. Hypertension, hypertensive cardiovascular disease, history of congestive heart failure. 4. Chronic obstructive pulmonary disease. 5. Bipolar disorder and chronic schizophrenia. PLAN: The patient is admitted to the Intensive Care Unit. Her blood glucose levels will be monitored. Continue Endocrinology followup with Dr. Carrillo. Physical therapy and social work for discharge planning when stable. CLAIR Hay MD
[2018-09-08 07:09] LABS: HEMOGLOBIN 11.2 g/dL (12.0-16.0); MEAN CELL VOLUME 85.8 fl (80.0-105.0); MEAN CORPUSCULAR HEMOGLOBIN 28.9 pg (25.0-35.0); MEAN CORPUSCULAR HGB CONC 33.7 g/dl (31.0-37.0); MEAN PLATELET VOLUME 9.4 fl (7.0-11.0); RBC 3.87 10^6/uL (3.5-6.1); RED CELL DISTRIBUTION WIDTH 13.6 % (11.5-14.5); WHITE BLOOD COUNT 5.6 10^3/uL (4.5-11.0)
[2018-09-08 07:42] LABS: ALB/GLOB RATIO 0.9 (1.1-1.8); ALBUMIN 3.3 g/dL (3.0-4.8); ALT/SGPT 9 U/L (7-56); AST/SGOT 28 U/L (14-36); BLOOD UREA NITROGEN 16 mg/dL (7-21); CALCIUM 8.5 mg/dL (8.4-10.5); GFR NON-AFRICAN AMERICAN > 60
[2018-09-08] MEDS: Pantoprazole 40 mg EC Tab PO SCH (09:02)
[2018-09-08] MEDS: Insulin Lispro 1 UNITS/0.01 ML SC SCH ×3 (09:03→18:11)
[2018-09-08] MEDS: Insulin Lispro (humaLOG) LOW Coverage SC SCH ×4 (09:05→22:11)
--- NOTE | 2018-09-08 09:59 | CP.PCM.PN ---
Subjective - Date & Time of Evaluation Date of Evaluation: 09/08/18 Time of Evaluation: 08:40 - Subjective Subjective: resting comfortably, NAD, denies chest pain, no SOB Objective - Vital Signs/Intake and Output Vital Signs (last 24 hours): Temp Pulse Resp BP Pulse Ox 98.9 F 99 H 20 161/70 H 96 09/08/18 06:00 09/08/18 06:00 09/08/18 06:00 09/08/18 06:00 09/08/18 06:00 Intake and Output: 09/08/18 09/08/18 06:59 18:59 Intake Total 660 Output Total 400 Balance 260 - Medications Medications: Current Medications Atorvastatin Calcium (Lipitor) 20 mg PO DIN [facility] Last Admin: 09/07/18 17:51 Dose: 20 mg Carvedilol (Coreg) 25 mg PO BID [facility] Last Admin: 09/07/18 17:51 Dose: 25 mg Clopidogrel Bisulfate (Plavix) 75 mg PO DAILY [facility] Last Admin: 09/07/18 10:51 Dose: 75 mg Dextrose (Dextrose 50% Inj) 0 ml IV STAT PRN; Protocol PRN Reason: Hypoglycemia Protocol Heparin Sodium (Porcine) (Heparin) 5,000 units SC Q8 [facility]; Protocol Last Admin: 09/08/18 05:42 Dose: 5,000 units Dextrose (Dextrose 5% In Water 1000 Ml) 1,000 mls @ 0 mls/hr IV .Q0M PRN; Protocol PRN Reason: Hypoglycemia Protocol Insulin Detemir (Levemir) 30 unit SC HS [facility] Last Admin: 09/07/18 22:09 Dose: 30 unit Insulin Human Lispro (Humalog Low) 0 units SC ACHS [facility]; Protocol Last Admin: 09/08/18 09:05 Dose: 2 u Insulin Human Lispro (Humalog) 10 units SC AC [facility] Last Admin: 09/08/18 09:03 Dose: 10 units Losartan Potassium (Cozaar) 50 mg PO DAILY [facility] Last Admin: 09/07/18 10:52 Dose: 50 mg Pantoprazole Sodium (Protonix Ec Tab) 40 mg PO ACB [facility] Last Admin: 09/08/18 09:02 Dose: 40 mg - Labs Labs: 09/08/18 06:45 09/08/18 06:45 PT 11.9 SECONDS (9.4-12.5) 09/06/18 18:45 INR 1.07 09/06/18 18:45 APTT 31.7 Seconds (26.9-38.3) 09/06/18 18:45 - Respiratory Exam Respiratory Exam: Clear to Ausculation Bilateral, NORMAL BREATHING PATTERN - Cardiovascular Exam Cardiovascular Exam: REGULAR RHYTHM - GI/Abdominal Exam GI & Abdominal Exam: Soft, Normal Bowel Sounds - Extremities Exam Extremities Exam: Normal Inspection - Neurological Exam Neurological Exam: Alert, Awake - Skin Skin Exam: Dry, Warm Assessment and Plan (1) DKA (diabetic ketoacidoses) Status: Acute (2) Dehydration Status: Acute (3) COPD (chronic obstructive pulmonary disease) Status: Chronic (4) Type I diabetes mellitus Status: Chronic - Assessment and Plan (Free Text) Plan: continue present treatment, endocrinology follow-up Dr. Carrillo, [email or web address] for DC planning
--- NOTE | 2018-09-08 15:32 | PN ---
DATE: 09/08/2018 ENDO FOLLOWUP NOTE LOCATION: Room 376. SUBJECTIVE: This is a 63-year-old female with recent uncontrolled type 2 insulin-requiring diabetes, now being followed closely for metabolic management. Her glycemic levels are fluctuating, but improved and the glucose values today have ranged from 145-222 and 264 mg/dL. Her bedtime glucose was 75 mg/dL. Her chemistry showed a BUN of 26, sodium 134, potassium 4.7, chloride 99, CO2 of 26, glucose 179 and creatinine 0.7. ASSESSMENT: This is a 63-year-old female with uncontrolled and decompensated type 1 insulin-dependent diabetes with extremes of glycemic fluctuations and predilection for symptomatic hypoglycemia with associated neuroglycopenic and hyperadrenergic manifestations of the same. She also clearly has underlying autonomic neuropathy with regulatory response to hypoglycemia thereof. Moreover, she has diabetic microvascular complications of retinopathy and polyneuropathy with macrovascular complications of coronary artery disease and peripheral arterial disease and vasculopathy. PLAN OF MANAGEMENT: We will continue the modified basal and bolus insulin regimen as given with Humalog given as 8 units t.i.d. before meals to start today as ordered. We will continue the basal insulin given as Levemir at 10 units subcu at bedtime daily as given. We will titrate incrementally as indicated to optimize metabolic control. We will obtain serial chemistries and supplement accordingly needed. We will follow. Polly Carrillo MD
[2018-09-08] MEDS: Insulin Detemir 100 units/ml Vial (Levemir) SC SCH (23:17)
[2018-09-09] MEDS: Insulin Lispro 1 UNITS/0.01 ML SC SCH ×3 (08:06→17:05)
[2018-09-09] MEDS: Insulin Lispro (humaLOG) LOW Coverage SC SCH ×4 (08:09→21:51)
[2018-09-09] MEDS: Pantoprazole 40 mg EC Tab PO SCH (09:01)
--- NOTE | 2018-09-09 09:34 | CP.PCM.PN ---
Subjective - Date & Time of Evaluation Date of Evaluation: 09/09/18 Time of Evaluation: 09:20 - Subjective Subjective: resting comfortably, NAD, denies chest pain, no SOB Objective - Vital Signs/Intake and Output Vital Signs (last 24 hours): Temp Pulse Resp BP Pulse Ox 98.9 F 91 H 20 134/80 96 09/08/18 06:00 09/09/18 09:00 09/08/18 06:00 09/09/18 09:00 09/08/18 06:00 Intake and Output: 09/09/18 09/09/18 06:59 18:59 Intake Total 480 Balance 480 - Medications Medications: Current Medications Atorvastatin Calcium (Lipitor) 20 mg PO DIN [facility] Last Admin: 09/08/18 18:07 Dose: 20 mg Carvedilol (Coreg) 25 mg PO BID [facility] Last Admin: 09/09/18 09:00 Dose: 25 mg Clopidogrel Bisulfate (Plavix) 75 mg PO DAILY [facility] Last Admin: 09/09/18 09:01 Dose: 75 mg Dextrose (Dextrose 50% Inj) 0 ml IV STAT PRN; Protocol PRN Reason: Hypoglycemia Protocol Heparin Sodium (Porcine) (Heparin) 5,000 units SC Q8 [facility]; Protocol Last Admin: 09/09/18 05:47 Dose: 5,000 units Dextrose (Dextrose 5% In Water 1000 Ml) 1,000 mls @ 0 mls/hr IV .Q0M PRN; Protocol PRN Reason: Hypoglycemia Protocol Insulin Detemir (Levemir) 30 unit SC HS [facility] Last Admin: 09/08/18 23:17 Dose: 30 unit Insulin Human Lispro (Humalog Low) 0 units SC ACHS [facility]; Protocol Last Admin: 09/09/18 08:09 Dose: 7 u Insulin Human Lispro (Humalog) 10 units SC AC [facility] Last Admin: 09/09/18 08:06 Dose: 10 units Losartan Potassium (Cozaar) 50 mg PO DAILY [facility] Last Admin: 09/09/18 09:00 Dose: 50 mg Pantoprazole Sodium (Protonix Ec Tab) 40 mg PO ACB [facility] Last Admin: 09/09/18 09:01 Dose: 40 mg - Labs Labs: 09/08/18 06:45 09/08/18 06:45 PT 11.9 SECONDS (9.4-12.5) 09/06/18 18:45 INR 1.07 09/06/18 18:45 APTT 31.7 Seconds (26.9-38.3) 09/06/18 18:45 - Respiratory Exam Respiratory Exam: Clear to Ausculation Bilateral, NORMAL BREATHING PATTERN - Cardiovascular Exam Cardiovascular Exam: REGULAR RHYTHM - GI/Abdominal Exam GI & Abdominal Exam: Soft, Normal Bowel Sounds - Extremities Exam Extremities Exam: Normal Inspection - Neurological Exam Neurological Exam: Alert, Awake - Skin Skin Exam: Dry, Warm Assessment and Plan (1) DKA (diabetic ketoacidoses) Status: Acute (2) Dehydration Status: Acute (3) COPD (chronic obstructive pulmonary disease) Status: Chronic (4) Type I diabetes mellitus Status: Chronic - Assessment and Plan (Free Text) Plan: continue present treatment, endocrine follow-uP Dr. Carrillo for glycemic control, PT & SW for DC planning
--- NOTE | 2018-09-09 19:47 | PN ---
DATE: 09/09/2018 ENDOCRINOLOGY FOLLOWUP NOTE LOCATION: Room 376. SUBJECTIVE: This is a 63-year-old female with recent uncontrolled type 2 insulin-requiring diabetes now being followed closely for metabolic management. She presented here with diabetic ketoacidosis and dehydration and is now improving clinically and metabolically as noted thereof. However, overnight she developed marked hyperglycemic accelerations as the evening insulin was withheld by the nursing staff. Her glucose levels at bedtime was 271 and it was 292-469 today as noted. LABORATORY DATA: Her chemistry showed a BUN of 16, sodium 140, potassium 3.7, chloride 108, CO2 of 26, glucose 234 and creatinine 0.8. ASSESSMENT: This is a 63-year-old female with uncontrolled and decompensated type 2 insulin-requiring diabetes presenting here with diabetic ketoacidosis and dehydration and is now improving clinically and metabolically as noted thereof, except for the overnight hyperglycemic accelerations because of the withholding by the nursing staff of her insulin regimen as ordered. PLAN: Plan of management, we will modify her current insulin regimen and increase the Humalog to 14 units t.i.d. before meals as ordered. We will increase her Levemir to 40 units subcutaneous at bedtime daily to start tonight. We will modify the coverage scale to a low-dose algorithm using Humalog insulin to obviate hypoglycemia and detailed orders have been given. We will follow and advise accordingly. Polly Carrillo MD
[2018-09-09] MEDS: Insulin Detemir 100 units/ml Vial (Levemir) SC SCH (21:52)
[2018-09-10 07:43] LABS: ALBUMIN 3.7 g/dL (3.0-4.8); ALT/SGPT 17 U/L (7-56); AST/SGOT 24 U/L (14-36); BLOOD UREA NITROGEN 19 mg/dL (7-21); GFR NON-AFRICAN AMERICAN > 60
[2018-09-10] MEDS: Insulin Lispro 1 UNITS/0.01 ML SC SCH ×3 (07:48→17:46)
[2018-09-10] MEDS: Insulin Lispro (humaLOG) LOW Coverage SC SCH ×4 (07:50→22:30)
[2018-09-10] MEDS: Pantoprazole 40 mg EC Tab PO SCH (09:19)
--- NOTE | 2018-09-10 10:35 | CT ---
Date of service: 09/10/2018 PROCEDURE: CT HEAD WITHOUT CONTRAST. HISTORY: cva COMPARISON: 12/09/2016 TECHNIQUE: Axial computed tomography images were obtained through the head/brain without intravenous contrast. Radiation dose: Total exam DLP = 896.81 mGy-cm. This CT exam was performed using one or more of the following dose reduction techniques: Automated exposure control, adjustment of the mA and/or kV according to patient size, and/or use of iterative reconstruction technique. FINDINGS: HEMORRHAGE: No intracranial hemorrhage. BRAIN: No mass effect or edema. Chronic microvascular changes are seen in the periventricular white matter. Mild atrophy VENTRICLES: Unremarkable. No hydrocephalus. CALVARIUM: Unremarkable. PARANASAL SINUSES: Unremarkable as visualized. No significant inflammatory changes. MASTOID AIR CELLS: Unremarkable as visualized. No inflammatory changes. OTHER FINDINGS: None. IMPRESSION: No acute findings
[2018-09-10] MEDS ORDERED: levETIRAcetam 500mg IVPB 500 MG/100 ML BAG IVPB ONE ×2 (10:43→10:45)
[2018-09-10 10:48] LABS: BASO # 0.03 K/mm3 (0.0-2.0); BASO % 0.6 % (0.0-3.0); EOS # 0.2 (0.0-0.7); EOS % 3.3 % (1.5-5.0); HEMOGLOBIN 11.1 g/dL (12.0-16.0); LYMPH # 2.1 (1.2-3.4); LYMPH % 39.2 % (22.0-35.0); MEAN CELL VOLUME 87.5 fl (80.0-105.0); MEAN CORPUSCULAR HEMOGLOBIN 29.4 pg (25.0-35.0); MEAN CORPUSCULAR HGB CONC 33.6 g/dl (31.0-37.0); MEAN PLATELET VOLUME 9.7 fl (7.0-11.0); MONO # 0.2 (0.1-0.6); MONO % 4.5 % (1.0-6.0); RBC 3.77 10^6/uL (3.5-6.1); RED CELL DISTRIBUTION WIDTH 13.5 % (11.5-14.5); WHITE BLOOD COUNT 5.4 10^3/uL (4.5-11.0)
--- NOTE | 2018-09-10 11:15 | PCM.RRT ---
CARD BOXER Nurse Assessment - Situation Date: 09/10/18 Time CARD BOXER was called: 10:00 CARD BOXER Responder Arrival Time: 10:00 CARD BOXER Location:: [address] [place] [address] Room Number: 376-2 CARD BOXER Reason for Call: Chest Pain CARD BOXER Called By: RN - IV IV Inserted during CARD BOXER?: No - Respiratory Oxygen Delivery Method: Nasal Cannula @L/min Oxygen Flow Rate: 2 Received Nebulizer Treatments:: No Was the Patient Ventilated with Bag/Mask 100% O2?: No Secretions Suctioned?: No Was the Patient Intubated?: No Was the Patient Placed on a Ventilator?: No - Diagnostic Test Ordered EKG: Yes Chest X-Ray: No CT Scan: Yes (head97.4) - Stat Labs Ordered CARD BOXER Stat Labs Ordered: CBC, TROPONIN CPR started during CARD BOXER?: No - Vital Signs Vital Sign: Rapid Response Vital Sign Blood Pressure 143/88 Pulse Rate 105 Respiratory Rate 16 Temperature 97.4 F Oxygen Saturation 98 - Finger Stick Blood Glucose Finger Stick Blood Glucose: 286 - Time CARD BOXER Ended Time CARD BOXER Ended: 10:15 - Vital Signs at end of CARD BOXER Vital Signs at end of CARD BOXER: Rapid Response End Vital Sign Blood Pressure 126/74 Pulse Rate 96 Respiratory Rate 126 Temperature 97.4 F O2 Sat by Pulse Oximetry 100 - Recommendations Notifications: Attending Physician - Neurological Status (Select all that apply): Alert, Weakness. absent: Oriented, Verbal, Follows Commands Other (Please specify): Initially patient was alert responsive oriented verbal following commands. - Respiratory Oxygen Delivery Method: Nasal Cannula @L/min Oxygen Flow Rate: 2 - Constitutional Appears: Non-toxic - Head Head Exam: ATRAUMATIC, NORMAL INSPECTION, NORMOCEPHALIC - Eyes Eye Exam: EOMI - Respiratory Exam Respiratory Exam: Clear to Ausculation Bilateral, NORMAL BREATHING PATTERN - Cardiovascular Exam Cardiovascular Exam: REGULAR RHYTHM, +S1, +S2 - GI/Abdominal Exam GI & Abdominal Exam: Soft, Normal Bowel Sounds - Neurological Exam Neurological Exam: Alert, Awake. absent: CN II-XII Intact, Oriented x3 Additional exam: NIHS scale 17 - Extremities Exam Extremities Exam: absent: Full ROM Plan - Assessment of Findings&Treatment Plan Patient is a 63 F with history of chronic back pain with history of pain medication addiction (as per patient's sister), stroke, DM II, seizure disorder currently admitted for DKA who abruptly experienced shortness of breath and weakness while walking around during her physical therapy session. Rapid response was called. Patient at time of RR was verbal able to communicate well and follow commands. Patient stated she had a previous stroke, when asked how her previous stroke presented she stated her symptoms were the same she was experiencing at the moment. Within 1 minute patient was noted to have a right sided facial droop. Code Stroke was called. Discussed with Neurologist who recommended tPA and ativan. Patient was transferred to ICU. Dr. Socrates Padilla, patient's PMD was made aware. Patient's sister Nina Romero was made aware and discussed side effects of tPA. Plan CBC, CMP, Trop, EKG, CXR, CTH ordered Ativan given tPA to be administered in ICU Patient transferred to ICU
--- NOTE | 2018-09-10 11:44 | RAD ---
HISTORY: chest pain COMPARISON: Chest x-ray performed 09/06/18 TECHNIQUE: Chest, one view. FINDINGS: Examination limited by habitus and hypoinflation. LUNGS: No focal consolidation. PLEURA: No significant pleural effusion identified. No definite pneumothorax . CARDIOVASCULAR: Heart size appears within normal limits. No significant aortic atherosclerotic calcification identified. OSSEOUS STRUCTURES: Osseous demineralization. Degenerative changes. VISUALIZED UPPER ABDOMEN: Unremarkable. OTHER FINDINGS: None. IMPRESSION: No focal consolidation. Hypoinflation.
--- NOTE | 2018-09-10 11:51 | CP.PCM.CON ---
<Devaughn Samuels - Last Filed: 09/10/18 14:26> History of Present Illness - History of Present Illness History of Present Illness: Pt is a 63 yo female with a PMH of DM/DKA, CVA, seizure disorder, HTN, CAD, bipolar/schizophrenia, and chronic back pain who was recently in the ICU for DKA during this admission. Pt was admitted to the ICU after a rapid response was called during the pt physical therapy session today. Pt stated she felt dizzy/lightheaded, the pt was taken back to her room and laid down. Pt began complaining of chest pain and generalized weakness. Left facial droop was noted and rapid response was called. Pt was then brought to the ICU. Pt denies chest pain, dizziness, SOB, visual changes, or trouble speaking. Pt know her name, FERNANDO, that she is currently in [place], [place]. Past Patient History - Infectious Disease Hx of Infectious Diseases: None - Tetanus Immunizations Tetanus Immunization: Unknown - Past Social History Smoking Status: Never Smoked - CARDIAC Hx Congestive Heart Failure: Yes Hx Hypertension: Yes - PULMONARY Hx Chronic Obstructive Pulmonary Disease (COPD): Yes - NEUROLOGICAL HX Cerebrovascular Accident: Yes (with no residual deficits) - HEENT Hx HEENT Problems: Yes (eyeglasses) Hx Blind: Yes (patient reports she is legally blind) - RENAL Hx Renal Failure: No - ENDOCRINE/METABOLIC Hx Diabetes Mellitus Type 2: Yes - HEMATOLOGICAL/ONCOLOGICAL Hx Blood Disorders: No Hx Cancer: No - INTEGUMENTARY Other/Comment: multiple skin discolorations rle - MUSCULOSKELETAL/RHEUMATOLOGICAL Hx Musculoskeletal Disorders: (left side weakness) Hx Back Pain: Yes Hx Falls: No Hx Unsteady Gait: Yes (walker) - GASTROINTESTINAL Hx Gastrointestinal Disorders: No - GENITOURINARY/GYNECOLOGICAL Hx Genitourinary Disorders: No - PSYCHIATRIC Hx Psychophysiologic Disorder: Yes Hx Depression: Yes Hx Substance Use: No Other/Comment: no hx of bipolar or schizophrenia as per pt - SURGICAL HISTORY Hx Cholecystectomy: Yes Hx Hysterectomy: Yes Hx Orthopedic Surgery: Yes (NECK, L LEG,BACK) Other/Comment: cervical spine sx in pt uncertain what type of sx she had done, lower back sx insertion of rods - ANESTHESIA Hx Anesthesia: Yes Hx Anesthesia Reactions: No Hx Malignant Hyperthermia: No Meds Allergies/Adverse Reactions: Allergies Allergy/AdvReac Type Severity Reaction Status Date / Time aspirin Allergy ANAPHYLAXIS Verified 06/30/17 21:34 diphenhydramine HCl Allergy ANAPHYLAXIS Verified 06/30/17 21:34 [From Benadryl] trifluoperazine Allergy ANAPHYLAXIS Verified 06/30/17 21:34 - Medications Medications: Current Medications Atorvastatin Calcium (Lipitor) 20 mg PO DIN [facility] Last Admin: 09/09/18 17:10 Dose: 20 mg Carvedilol (Coreg) 25 mg PO BID [facility] Last Admin: 09/10/18 09:18 Dose: 25 mg Clopidogrel Bisulfate (Plavix) 75 mg PO DAILY [facility] Last Admin: 09/10/18 09:19 Dose: 75 mg Dextrose (Dextrose 50% Inj) 0 ml IV STAT PRN; Protocol PRN Reason: Hypoglycemia Protocol Heparin Sodium (Porcine) (Heparin) 5,000 units SC Q8 [facility]; Protocol Last Admin: 09/10/18 05:38 Dose: 5,000 units Dextrose (Dextrose 5% In Water 1000 Ml) 1,000 mls @ 0 mls/hr IV .Q0M PRN; Protocol PRN Reason: Hypoglycemia Protocol Insulin Detemir (Levemir) 40 unit SC HS [facility] Insulin Human Lispro (Humalog Low) 0 units SC ACHS [facility]; Protocol Last Admin: 09/10/18 07:50 Dose: 5 unit Insulin Human Lispro (Humalog) 14 units SC AC [facility] Last Admin: 09/10/18 07:48 Dose: 14 unit Losartan Potassium (Cozaar) 50 mg PO DAILY [facility] Last Admin: 09/10/18 09:18 Dose: 50 mg Pantoprazole Sodium (Protonix Ec Tab) 40 mg PO ACB [facility] Last Admin: 09/10/18 09:19 Dose: 40 mg Physical Exam - Constitutional Appears: Well, No Acute Distress - Head Exam Head Exam: ATRAUMATIC, NORMOCEPHALIC - Eye Exam Eye Exam: EOMI, PERRL - ENT Exam ENT Exam: Mucous Membranes Moist - Neck Exam Neck exam: Positive for: Full Rom - Respiratory Exam Respiratory Exam: Clear to Auscultation Bilateral, NORMAL BREATHING PATTERN. absent: Accessory Muscle Use - Cardiovascular Exam Cardiovascular Exam: RRR, +S1, +S2. absent: Diastolic murmur, Systolic Murmur - GI/Abdominal Exam GI & Abdominal Exam: Normal Bowel Sounds, Soft - Extremities Exam Extremities exam: Positive for: full ROM, normal inspection, pedal pulses present. Negative for: calf tenderness, pedal edema - Neurological Exam Neurological exam: Alert Additional comments: slight facial droop left side - Skin Skin Exam: Dry, Normal Color, Warm Results - Vital Signs Recent Vital Signs: Last Vital Signs Temp 98.1 F 09/10/18 06:00 Pulse 80 09/10/18 09:18 Resp 20 09/10/18 06:00 BP 132/73 09/10/18 09:18 Pulse Ox 97 09/10/18 06:00 - Labs Result Diagrams: 09/10/18 10:30 09/10/18 11:40 Labs: Laboratory Results - last 24 hr 09/09/18 09/09/18 09/09/18 11:50 16:53 21:30 WBC RBC Hgb Hct MCV MCH MCHC RDW Plt Count MPV Neut % (Auto) Lymph % (Auto) [place] % (Auto) Eos % (Auto) Baso % (Auto) Lymph # (Auto) [place] # (Auto) Eos # (Auto) Baso # (Auto) Absolute Neuts (auto) Sodium Potassium Chloride Carbon Dioxide Anion Gap BUN Creatinine Est GFR ( Amer) Est GFR (Non-Af Amer) POC Glucose (mg/dL) 292 H 297 H 330 H Random Glucose Calcium Magnesium Total Bilirubin AST ALT Alkaline Phosphatase Troponin I Total Protein Albumin Globulin Albumin/Globulin Ratio 09/10/18 09/10/18 09/10/18 06:30 07:26 10:02 WBC RBC Hgb Hct MCV MCH MCHC RDW Plt Count MPV Neut % (Auto) Lymph % (Auto) [place] % (Auto) Eos % (Auto) Baso % (Auto) Lymph # (Auto) [place] # (Auto) Eos # (Auto) Baso # (Auto) Absolute Neuts (auto) Sodium 137 Potassium 4.0 Chloride 105 Carbon Dioxide 25 Anion Gap 11 BUN 19 Creatinine 0.9 Est GFR ( Amer) > 60 Est GFR (Non-Af Amer) > 60 POC Glucose (mg/dL) 375 H 286 H Random Glucose 419 H* D Calcium 9.0 Magnesium 2.0 Total Bilirubin 0.4 AST 24 ALT 17 Alkaline Phosphatase 119 Troponin I Total Protein 7.6 Albumin 3.7 Globulin 3.9 Albumin/Globulin Ratio 1.0 L 03/29/19 03/29/19 10:30 10:30 WBC 5.4 RBC 3.77 Hgb 11.1 L Hct 33.0 L MCV 87.5 MCH 29.4 MCHC 33.6 RDW 13.5 Plt Count 175 MPV 9.7 Neut % (Auto) 52.4 Lymph % (Auto) 39.2 H [place] % (Auto) 4.5 Eos % (Auto) 3.3 Baso % (Auto) 0.6 Lymph # (Auto) 2.1 [place] # (Auto) 0.2 Eos # (Auto) 0.2 Baso # (Auto) 0.03 Absolute Neuts (auto) 2.82 Sodium Potassium Chloride Carbon Dioxide Anion Gap BUN Creatinine Est GFR ( Amer) Est GFR (Non-Af Amer) POC Glucose (mg/dL) Random Glucose Calcium Magnesium Total Bilirubin AST ALT Alkaline Phosphatase Troponin I 0.01 D Total Protein Albumin Globulin Albumin/Globulin Ratio Assessment & Plan - Assessment and Plan (Free Text) Assessment: Pt is a 63 yo female with a PMH of DM/DKA, HTN, and dementia who was admitted to the ICU after a rapid response was called for a CODE STOKE. Plan: Neuro/ Psyc - Bipolar/ Schizophrenia, Dementia, CVA, ?seizure disorder - RAPID RESPONSE/ CODE STROKE 09/10/18 for dizziness, slight facial droop, and generalized weakness - on exam pt has slight facial droop on left side, no other neurological deficits - given keppra stat, given 1mg ativan stat - seizure precautions, Ativan PRN - Neuro is consulted, Dr Duarte rec not to give TPA at this time, possible seizure, will continue to monitor Cardio - HTN, CAD, HLD - maintain MAP>65 - given nitro stat - lipitor, coreg, losartan, plavix Pulm - ABG on admission: /7.15 GI - LFTs WNL - pantoprazole - carb consistent diet Renal - BUN/Cr 28/1.1 - K wnl, continue to monitor Heme - continue to monitor H/H - Hgb 11.5 - INR 1.07 - DVT ppx Heprain ID - no leukocytosis - follow up blood cultures Endocrine - DKA, DM - pt is likely non compliant with medications - ISS low, levemir 40 HS, lispro 14 AC - Endo consulted, Dr Carrillo, following Pt seen, examined, assessment and plan discussed with Dr Kenan Samuels PGY1 - Date & Time Date: 09/10/18 Time: 12:00 <Kenan Trujillo - Last Filed: 09/10/18 17:57> Meds - Medications Medications: Current Medications Atorvastatin Calcium (Lipitor) 20 mg PO DIN [facility] Last Admin: 09/10/18 17:47 Dose: 20 mg Carvedilol (Coreg) 25 mg PO BID [facility] Last Admin: 09/10/18 17:45 Dose: Not Given Clopidogrel Bisulfate (Plavix) 75 mg PO DAILY [facility] Last Admin: 09/10/18 09:19 Dose: 75 mg Dextrose (Dextrose 50% Inj) 0 ml IV STAT PRN; Protocol PRN Reason: Hypoglycemia Protocol Heparin Sodium (Porcine) (Heparin) 5,000 units SC Q8 [facility]; Protocol Last Admin: 09/10/18 13:10 Dose: 5,000 units Dextrose (Dextrose 5% In Water 1000 Ml) 1,000 mls @ 0 mls/hr IV .Q0M PRN; Protocol PRN Reason: Hypoglycemia Protocol Levetiracetam 750 mg/ Sodium (Chloride) 107.5 mls @ 215 mls/hr IVPB Q12 [facility] Insulin Detemir (Levemir) 40 unit SC HS [facility] Insulin Human Lispro (Humalog Low) 0 units SC ACHS [facility]; Protocol Last Admin: 09/10/18 17:46 Dose: Not Given Insulin Human Lispro (Humalog) 14 units SC AC [facility] Last Admin: 09/10/18 17:46 Dose: 14 unit Lorazepam (Ativan) 1 mg IVP Q1 PRN; Protocol PRN Reason: Seizure activity Losartan Potassium (Cozaar) 50 mg PO DAILY [facility] Last Admin: 09/10/18 09:18 Dose: 50 mg Pantoprazole Sodium (Protonix Ec Tab) 40 mg PO ACB [facility] Last Admin: 09/10/18 09:19 Dose: 40 mg Results - Vital Signs Recent Vital Signs: Last Vital Signs Temp 97.9 F 09/10/18 17:03 Pulse 59 L 09/10/18 17:45 Resp 19 09/10/18 17:03 BP 108/58 L 09/10/18 17:45 Pulse Ox 99 09/10/18 17:03 - Labs Result Diagrams: 09/10/18 10:30 09/10/18 11:40 Labs: Laboratory Results - last 24 hr 03/28/19 03/29/19 03/29/19 21:30 06:30 07:26 WBC RBC Hgb Hct MCV MCH MCHC RDW Plt Count MPV Neut % (Auto) Lymph % (Auto) [place] % (Auto) Eos % (Auto) Baso % (Auto) Lymph # (Auto) [place] # (Auto) Eos # (Auto) Baso # (Auto) Absolute Neuts (auto) PT INR APTT Sodium 137 Potassium 4.0 Chloride 105 Carbon Dioxide 25 Anion Gap 11 BUN 19 Creatinine 0.9 Est GFR ( Amer) > 60 Est GFR (Non-Af Amer) > 60 POC Glucose (mg/dL) 330 H 375 H Random Glucose 419 H* D Calcium 9.0 Magnesium 2.0 Total Bilirubin 0.4 AST 24 ALT 17 Alkaline Phosphatase 119 Troponin I Total Protein 7.6 Albumin 3.7 Globulin 3.9 Albumin/Globulin Ratio 1.0 L Blood Type Blood Type Confirm Antibody Screen Crossmatch BBK History Checked 09/10/18 09/10/18 09/10/18 10:02 10:30 10:30 WBC 5.4 RBC 3.77 Hgb 11.1 L Hct 33.0 L MCV 87.5 MCH 29.4 MCHC 33.6 RDW 13.5 Plt Count 175 MPV 9.7 Neut % (Auto) 52.4 Lymph % (Auto) 39.2 H [place] % (Auto) 4.5 Eos % (Auto) 3.3 Baso % (Auto) 0.6 Lymph # (Auto) 2.1 [place] # (Auto) 0.2 Eos # (Auto) 0.2 Baso # (Auto) 0.03 Absolute Neuts (auto) 2.82 PT INR APTT Sodium Potassium Chloride Carbon Dioxide Anion Gap BUN Creatinine Est GFR ( Amer) Est GFR (Non-Af Amer) POC Glucose (mg/dL) 286 H Random Glucose Calcium Magnesium Total Bilirubin AST ALT Alkaline Phosphatase Troponin I 0.01 D Total Protein Albumin Globulin Albumin/Globulin Ratio Blood Type Blood Type Confirm Antibody Screen Crossmatch BBK History Checked 09/10/18 09/10/18 09/10/18 11:40 11:40 12:30 WBC RBC Hgb Hct MCV MCH MCHC RDW Plt Count MPV Neut % (Auto) Lymph % (Auto) [place] % (Auto) Eos % (Auto) Baso % (Auto) Lymph # (Auto) [place] # (Auto) Eos # (Auto) Baso # (Auto) Absolute Neuts (auto) PT 11.4 INR 1.01 APTT 30.5 Sodium 138 Potassium 3.4 L Chloride 105 Carbon Dioxide 28 Anion Gap 9 L BUN 17 Creatinine 0.7 Est GFR ( Amer) > 60 Est GFR (Non-Af Amer) > 60 POC Glucose (mg/dL) 234 H Random Glucose 221 H Calcium 9.1 Magnesium Total Bilirubin AST ALT Alkaline Phosphatase Troponin I Total Protein Albumin Globulin Albumin/Globulin Ratio Blood Type Blood Type Confirm Antibody Screen Crossmatch BBK History Checked 09/10/18 09/10/18 09/10/18 15:00 15:40 17:05 WBC RBC Hgb Hct MCV MCH MCHC RDW Plt Count MPV Neut % (Auto) Lymph % (Auto) [place] % (Auto) Eos % (Auto) Baso % (Auto) Lymph # (Auto) [place] # (Auto) Eos # (Auto) Baso # (Auto) Absolute Neuts (auto) PT INR APTT Sodium Potassium Chloride Carbon Dioxide Anion Gap BUN Creatinine Est GFR ( Amer) Est GFR (Non-Af Amer) POC Glucose (mg/dL) 146 H Random Glucose Calcium Magnesium Total Bilirubin AST ALT Alkaline Phosphatase Troponin I Total Protein Albumin Globulin Albumin/Globulin Ratio Blood Type O POSITIVE Blood Type Confirm O POSITIVE Antibody Screen Negative Crossmatch See Detail BBK History Checked No verified bt Addendum Addendum: 09/10/18 17:57 MICU Attending Addendum Patient seen and examined with housestaff Agree with resident note above with the following addition/exceptions: 63F hx of DM/DKA, CVA, seizure disorder, HTN, CAD, bipolar/schizophrenia, catatonia and chronic back pain who was recently in the ICU for DKA during this admission had a code stroke called this morning because patient was minimally responsive. CT head was was negative and neuro ordered tpa for stroke. The patient was transferred to the ICU under the assumption that we would monitor her post-tpa however her primary physician Dr Socrates Padilla arrived and explained patient has history of similar catatonic events in the past. In a short period of time the patient regained full consciousness and ability to move her extremities. AOx3 and now at her baseline. Neuro has re-evaluated and can celled tpa. Patient can be taken back to her general medical floor. rest of care as mentioned in above resident note Kenan Trujillo MD MICU Attending
[2018-09-10 12:09] LABS: BLOOD UREA NITROGEN 17 mg/dL (7-21); CALCIUM 9.1 mg/dL (8.4-10.5); GFR NON-AFRICAN AMERICAN > 60
[2018-09-10 12:42] LABS: INR 1.01; PARTIAL THROMBOPLASTIN TIME 30.5 Seconds (26.9-38.3); PROTHROMBIN TIME 11.4 SECONDS (9.4-12.5)
[2018-09-10] MEDS ORDERED: Potassium Chloride 20 mEq ER Tab PO ONE (12:43)
--- NOTE | 2018-09-10 16:19 | CP.PCM.PN ---
Subjective - Date & Time of Evaluation Date of Evaluation: 09/10/18 Time of Evaluation: 11:20 - Subjective Subjective: events of today noted, code stroke called for episode of non-responsiveness, CT head negative for acute bleed/infarct, pt awake and responsive at present, moving all 4 extrems, denies chest pain, no SOB Objective - Vital Signs/Intake and Output Vital Signs (last 24 hours): Temp Pulse Resp BP Pulse Ox 98.1 F 97 H 20 132/73 97 09/10/18 06:00 09/10/18 15:50 09/10/18 06:00 09/10/18 09:18 09/10/18 06:00 Intake and Output: 09/10/18 09/10/18 06:59 18:59 Intake Total 120 Balance 120 - Medications Medications: Current Medications Atorvastatin Calcium (Lipitor) 20 mg PO DIN [facility] Last Admin: 09/09/18 17:10 Dose: 20 mg Carvedilol (Coreg) 25 mg PO BID [facility] Last Admin: 09/10/18 09:18 Dose: 25 mg Clopidogrel Bisulfate (Plavix) 75 mg PO DAILY [facility] Last Admin: 09/10/18 09:19 Dose: 75 mg Dextrose (Dextrose 50% Inj) 0 ml IV STAT PRN; Protocol PRN Reason: Hypoglycemia Protocol Heparin Sodium (Porcine) (Heparin) 5,000 units SC Q8 [facility]; Protocol Last Admin: 09/10/18 13:10 Dose: 5,000 units Dextrose (Dextrose 5% In Water 1000 Ml) 1,000 mls @ 0 mls/hr IV .Q0M PRN; Protocol PRN Reason: Hypoglycemia Protocol Levetiracetam 750 mg/ Sodium (Chloride) 107.5 mls @ 215 mls/hr IVPB Q12 [facility] Insulin Detemir (Levemir) 40 unit SC HS [facility] Insulin Human Lispro (Humalog Low) 0 units SC ACHS [facility]; Protocol Last Admin: 09/10/18 13:09 Dose: 2 unit Insulin Human Lispro (Humalog) 14 units SC AC [facility] Last Admin: 09/10/18 13:10 Dose: 14 unit Lorazepam (Ativan) 1 mg IVP Q1 PRN; Protocol PRN Reason: Seizure activity Losartan Potassium (Cozaar) 50 mg PO DAILY [facility] Last Admin: 09/10/18 09:18 Dose: 50 mg Pantoprazole Sodium (Protonix Ec Tab) 40 mg PO ACB [facility] Last Admin: 09/10/18 09:19 Dose: 40 mg - Labs Labs: 09/10/18 10:30 09/10/18 11:40 PT 11.4 SECONDS (9.4-12.5) 09/10/18 11:40 INR 1.01 09/10/18 11:40 APTT 30.5 Seconds (26.9-38.3) 09/10/18 11:40 - Respiratory Exam Respiratory Exam: Clear to Ausculation Bilateral, NORMAL BREATHING PATTERN - Cardiovascular Exam Cardiovascular Exam: REGULAR RHYTHM - GI/Abdominal Exam GI & Abdominal Exam: Soft, Normal Bowel Sounds - Extremities Exam Extremities Exam: Normal Inspection - Neurological Exam Neurological Exam: Awake Neuro motor strength exam: Left Upper Extremity: 4, Right Upper Extremity: 4, Left Lower Extremity: 4, Right Lower Extremity: 4 - Psychiatric Exam Psychiatric exam: Flat Affect - Skin Skin Exam: Dry, Warm Assessment and Plan (1) DKA (diabetic ketoacidoses) Status: Acute (2) Dehydration Status: Acute (3) COPD (chronic obstructive pulmonary disease) Status: Chronic (4) Type I diabetes mellitus Status: Chronic (5) Chronic schizophrenia Status: Chronic (6) Catatonia Status: Acute - Assessment and Plan (Free Text) Plan: observe, continue monitor glucose levels
--- NOTE | 2018-09-10 16:28 | CP.PCM.CON ---
<Bob Guido - Last Filed: 09/10/18 16:24> History of Present Illness - History of Present Illness History of Present Illness: Bob Guido PGY2 Neurology Consult Note for Dr. Duarte Consult Requested by: Stroke team consult due to code stroke P63 yo female with a PMH of DM/DKA, CVA, seizure disorder, HTN, CAD, bipolar/schizophrenia, catatonia and chronic back pain who was recently in the ICU for DKA during this admission. Code stroke was called in the AM due to patients worsening neuro status. Patient was not responding appropriately initially, also was noted having seizure like movement of right arm. CT head was done which was negative, ativan was given IV. Patient was transferred to the ICU and on reevaluation was back to her baseline without any issues or additional intervention. Primary physician Socrates Padilla was present who explained patient has history of similar catatonic events in the past. Patient AAOx3 and denies any complaints. Review of Systems - Review of Systems Review of Systems: Negative except for which stated in HPI above - Constitutional Constitutional: absent: Headache, Weakness - Neurological Neurological: Frequent Falls. absent: Convulsions, Disequilibrium, Dizziness, Numbness, Focal Weakness, Headaches, Memory Loss, Paresthesias, Radicular Pain, Restless Legs, Sensory Deficit, Syncope, Tingling, Tremor, Vertigo, Weakness Past Patient History - Infectious Disease Hx of Infectious Diseases: None - Tetanus Immunizations Tetanus Immunization: Unknown - Past Social History Smoking Status: Never Smoked - CARDIAC Hx Cardiac Disorders: Yes Hx Hypertension: Yes - PULMONARY Hx Chronic Obstructive Pulmonary Disease (COPD): Yes - NEUROLOGICAL HX Cerebrovascular Accident: Yes (L sided weaknesss) - HEENT Hx HEENT Problems: Yes (eyeglasses) Hx Blind: Yes (patient reports she is legally blind) - RENAL Hx Renal Failure: No - ENDOCRINE/METABOLIC Hx Diabetes Mellitus Type 2: Yes - HEMATOLOGICAL/ONCOLOGICAL Hx Blood Disorders: No Hx Cancer: No - INTEGUMENTARY Other/Comment: multiple skin discolorations rle - MUSCULOSKELETAL/RHEUMATOLOGICAL Hx Musculoskeletal Disorders: (left side weakness) Hx Back Pain: Yes Hx Falls: No Hx Unsteady Gait: Yes (walker) - GASTROINTESTINAL Hx Gastrointestinal Disorders: No - GENITOURINARY/GYNECOLOGICAL Hx Genitourinary Disorders: No - PSYCHIATRIC Hx Psychophysiologic Disorder: Yes Hx Depression: Yes Hx Substance Use: No Other/Comment: no hx of bipolar or schizophrenia as per pt - SURGICAL HISTORY Hx Cholecystectomy: Yes Hx Hysterectomy: Yes Hx Orthopedic Surgery: Yes (NECK, L LEG,BACK) Other/Comment: cervical spine sx in pt uncertain what type of sx she had done, lower back sx insertion of rods - ANESTHESIA Hx Anesthesia: Yes Hx Anesthesia Reactions: No Hx Malignant Hyperthermia: No Meds Allergies/Adverse Reactions: Allergies Allergy/AdvReac Type Severity Reaction Status Date / Time aspirin Allergy ANAPHYLAXIS Verified 06/30/17 21:34 diphenhydramine HCl Allergy ANAPHYLAXIS Verified 06/30/17 21:34 [From Benadryl] trifluoperazine Allergy ANAPHYLAXIS Verified 06/30/17 21:34 - Medications Medications: Current Medications Atorvastatin Calcium (Lipitor) 20 mg PO DIN [facility] Last Admin: 09/09/18 17:10 Dose: 20 mg Carvedilol (Coreg) 25 mg PO BID [facility] Last Admin: 09/10/18 09:18 Dose: 25 mg Clopidogrel Bisulfate (Plavix) 75 mg PO DAILY [facility] Last Admin: 09/10/18 09:19 Dose: 75 mg Dextrose (Dextrose 50% Inj) 0 ml IV STAT PRN; Protocol PRN Reason: Hypoglycemia Protocol Heparin Sodium (Porcine) (Heparin) 5,000 units SC Q8 [facility]; Protocol Last Admin: 09/10/18 13:10 Dose: 5,000 units Dextrose (Dextrose 5% In Water 1000 Ml) 1,000 mls @ 0 mls/hr IV .Q0M PRN; Protocol PRN Reason: Hypoglycemia Protocol Levetiracetam 750 mg/ Sodium (Chloride) 107.5 mls @ 215 mls/hr IVPB Q12 [facility] Insulin Detemir (Levemir) 40 unit SC HS [facility] Insulin Human Lispro (Humalog Low) 0 units SC ACHS [facility]; Protocol Last Admin: 09/10/18 13:09 Dose: 2 unit Insulin Human Lispro (Humalog) 14 units SC AC [facility] Last Admin: 09/10/18 13:10 Dose: 14 unit Lorazepam (Ativan) 1 mg IVP Q1 PRN; Protocol PRN Reason: Seizure activity Losartan Potassium (Cozaar) 50 mg PO DAILY [facility] Last Admin: 09/10/18 09:18 Dose: 50 mg Pantoprazole Sodium (Protonix Ec Tab) 40 mg PO ACB [facility] Last Admin: 09/10/18 09:19 Dose: 40 mg Physical Exam - Constitutional Appears: Well, Non-toxic, No Acute Distress - Head Exam Head Exam: ATRAUMATIC, NORMAL INSPECTION, NORMOCEPHALIC - Eye Exam Eye Exam: EOMI, Normal appearance - ENT Exam ENT Exam: Mucous Membranes Moist - Back Exam Back exam: NORMAL INSPECTION - Neurological Exam Neurological exam: Alert, CN II-XII Intact, Oriented x3, Reflexes Normal Results - Vital Signs Recent Vital Signs: Last Vital Signs Temp 98.1 F 09/10/18 06:00 Pulse 97 H 09/10/18 15:50 Resp 20 09/10/18 06:00 BP 132/73 09/10/18 09:18 Pulse Ox 97 09/10/18 06:00 - Labs Result Diagrams: 09/10/18 10:30 09/10/18 11:40 Labs: Laboratory Results - last 24 hr 09/09/18 09/09/18 09/10/18 16:53 21:30 06:30 WBC RBC Hgb Hct MCV MCH MCHC RDW Plt Count MPV Neut % (Auto) Lymph % (Auto) [place] % (Auto) Eos % (Auto) Baso % (Auto) Lymph # (Auto) [place] # (Auto) Eos # (Auto) Baso # (Auto) Absolute Neuts (auto) PT INR APTT Sodium 137 Potassium 4.0 Chloride 105 Carbon Dioxide 25 Anion Gap 11 BUN 19 Creatinine 0.9 Est GFR ( Amer) > 60 Est GFR (Non-Af Amer) > 60 POC Glucose (mg/dL) 297 H 330 H Random Glucose 419 H* D Calcium 9.0 Magnesium 2.0 Total Bilirubin 0.4 AST 24 ALT 17 Alkaline Phosphatase 119 Troponin I Total Protein 7.6 Albumin 3.7 Globulin 3.9 Albumin/Globulin Ratio 1.0 L Blood Type Blood Type Confirm Antibody Screen Crossmatch BBK History Checked 09/10/18 09/10/18 09/10/18 07:26 10:02 10:30 WBC 5.4 RBC 3.77 Hgb 11.1 L Hct 33.0 L MCV 87.5 MCH 29.4 MCHC 33.6 RDW 13.5 Plt Count 175 MPV 9.7 Neut % (Auto) 52.4 Lymph % (Auto) 39.2 H [place] % (Auto) 4.5 Eos % (Auto) 3.3 Baso % (Auto) 0.6 Lymph # (Auto) 2.1 [place] # (Auto) 0.2 Eos # (Auto) 0.2 Baso # (Auto) 0.03 Absolute Neuts (auto) 2.82 PT INR APTT Sodium Potassium Chloride Carbon Dioxide Anion Gap BUN Creatinine Est GFR ( Amer) Est GFR (Non-Af Amer) POC Glucose (mg/dL) 375 H 286 H Random Glucose Calcium Magnesium Total Bilirubin AST ALT Alkaline Phosphatase Troponin I Total Protein Albumin Globulin Albumin/Globulin Ratio Blood Type Blood Type Confirm Antibody Screen Crossmatch BBK History Checked 09/10/18 09/10/18 09/10/18 10:30 11:40 11:40 WBC RBC Hgb Hct MCV MCH MCHC RDW Plt Count MPV Neut % (Auto) Lymph % (Auto) [place] % (Auto) Eos % (Auto) Baso % (Auto) Lymph # (Auto) [place] # (Auto) Eos # (Auto) Baso # (Auto) Absolute Neuts (auto) PT 11.4 INR 1.01 APTT 30.5 Sodium 138 Potassium 3.4 L Chloride 105 Carbon Dioxide 28 Anion Gap 9 L BUN 17 Creatinine 0.7 Est GFR ( Amer) > 60 Est GFR (Non-Af Amer) > 60 POC Glucose (mg/dL) Random Glucose 221 H Calcium 9.1 Magnesium Total Bilirubin AST ALT Alkaline Phosphatase Troponin I 0.01 D Total Protein Albumin Globulin Albumin/Globulin Ratio Blood Type Blood Type Confirm Antibody Screen Crossmatch BBK History Checked 09/10/18 09/10/18 09/10/18 12:30 15:00 15:40 WBC RBC Hgb Hct MCV MCH MCHC RDW Plt Count MPV Neut % (Auto) Lymph % (Auto) [place] % (Auto) Eos % (Auto) Baso % (Auto) Lymph # (Auto) [place] # (Auto) Eos # (Auto) Baso # (Auto) Absolute Neuts (auto) PT INR APTT Sodium Potassium Chloride Carbon Dioxide Anion Gap BUN Creatinine Est GFR ( Amer) Est GFR (Non-Af Amer) POC Glucose (mg/dL) 234 H Random Glucose Calcium Magnesium Total Bilirubin AST ALT Alkaline Phosphatase Troponin I Total Protein Albumin Globulin Albumin/Globulin Ratio Blood Type O POSITIVE Blood Type Confirm O POSITIVE Antibody Screen Negative Crossmatch See Detail BBK History Checked No verified bt Assessment & Plan - Assessment and Plan (Free Text) Plan: Seizure -patient has history of previous seizures -CT head negative -Jamara [id number] <Enrique Duarte - Last Filed: 09/12/18 21:09> Meds - Medications Medications: Current Medications Atorvastatin Calcium (Lipitor) 20 mg PO DIN [facility] Last Admin: 09/12/18 17:06 Dose: 20 mg Carvedilol (Coreg) 25 mg PO BID [facility] Last Admin: 09/12/18 17:05 Dose: 25 mg Clopidogrel Bisulfate (Plavix) 75 mg PO DAILY [facility] Last Admin: 09/12/18 09:25 Dose: 75 mg Dextrose (Dextrose 50% Inj) 0 ml IV STAT PRN; Protocol PRN Reason: Hypoglycemia Protocol Heparin Sodium (Porcine) (Heparin) 5,000 units SC Q8 [facility]; Protocol Last Admin: 09/12/18 13:13 Dose: 5,000 units Dextrose (Dextrose 5% In Water 1000 Ml) 1,000 mls @ 0 mls/hr IV .Q0M PRN; P rotocol PRN Reason: Hypoglycemia Protocol Levetiracetam 750 mg/ Sodium (Chloride) 107.5 mls @ 215 mls/hr IVPB Q12 [facility] Last Admin: 09/12/18 09:26 Dose: 215 mls/hr Insulin Detemir (Levemir) 44 unit SC HS [facility] Last Admin: 09/11/18 21:40 Dose: 44 units Insulin Human Lispro (Humalog Low) 0 units SC ACHS [facility]; Protocol Last Admin: 09/12/18 17:05 Dose: 3 unit Insulin Human Lispro (Humalog) 14 units SC AC [facility] Last Admin: 09/12/18 17:05 Dose: 14 unit Lidocaine (Lidoderm) 1 ea TD DAILY [facility] Last Admin: 09/12/18 09:25 Dose: 1 ea Lorazepam (Ativan) 1 mg IVP Q1 PRN; Protocol PRN Reason: Seizure activity Losartan Potassium (Cozaar) 50 mg PO DAILY [facility] Last Admin: 09/12/18 09:26 Dose: 50 mg Pantoprazole Sodium (Protonix Ec Tab) 40 mg PO ACB [facility] Last Admin: 09/12/18 08:16 Dose: 40 mg Results - Vital Signs Recent Vital Signs: Last Vital Signs Temp 97.6 F 09/12/18 06:00 Pulse 73 09/12/18 18:00 Resp 20 09/12/18 06:00 BP 112/60 09/12/18 17:05 Pulse Ox 100 09/12/18 06:00 - Labs Result Diagrams: 09/10/18 10:30 09/10/18 11:40 Labs: Laboratory Results - last 24 hr 09/12/18 09/12/18 09/12/18 02:01 07:13 11:34 POC Glucose (mg/dL) 289 H 160 H 121 H 09/12/18 16:06 POC Glucose (mg/dL) 252 H Attending/Attestation - Attestation I have personally seen and examined this patient.: Yes I have fully participated in the care of the patient.: Yes I have reviewed all pertinent clinical information: Yes Notes (Text): I agree with the assessment and plan. Symptoms likely secondary to psychiatric condition and history.
--- NOTE | 2018-09-10 20:46 | CARD ---
APPROVED REPORT Date of service: 09/10/2018 EKG Measurement Heart [id number] CT 132P61 [id number] <Conclusion> Normal sinus rhythm Possible Left atrial enlargement
[2018-09-10] MEDS ORDERED: Insulin Detemir 100 units/ml Vial (Levemir) SC SCH (22:00)
--- NOTE | 2018-09-11 02:14 | CP.PCM.PN ---
Subjective - Date & Time of Evaluation Date of Evaluation: 09/11/18 Time of Evaluation: 02:13 - Subjective Subjective: Patient was seen because of headache. Has no other complaints. This 63 year old woman was admitted Has PMH of: HTN CHF COPD CVA Bipolar disorder Schizophrenia Lumbar laminectomy and fusion Cholecystectomy. ROXANNE&BSO. Objective - Vital Signs/Intake and Output Vital Signs (last 24 hours): Temp Pulse Resp BP Pulse Ox 97.9 F 90 19 108/58 L 99 09/10/18 17:03 09/10/18 22:00 09/10/18 17:03 09/10/18 17:45 09/10/18 17:03 - Medications Medications: Current Medications Atorvastatin Calcium (Lipitor) 20 mg PO DIN [facility] Last Admin: 09/10/18 17:47 Dose: 20 mg Carvedilol (Coreg) 25 mg PO BID [facility] Last Admin: 09/10/18 17:45 Dose: Not Given Clopidogrel Bisulfate (Plavix) 75 mg PO DAILY [facility] Last Admin: 09/10/18 09:19 Dose: 75 mg Dextrose (Dextrose 50% Inj) 0 ml IV STAT PRN; Protocol PRN Reason: Hypoglycemia Protocol Heparin Sodium (Porcine) (Heparin) 5,000 units SC Q8 [facility]; Protocol Last Admin: 09/10/18 22:35 Dose: 5,000 units Dextrose (Dextrose 5% In Water 1000 Ml) 1,000 mls @ 0 mls/hr IV .Q0M PRN; Protocol PRN Reason: Hypoglycemia Protocol Levetiracetam 750 mg/ Sodium (Chloride) 107.5 mls @ 215 mls/hr IVPB Q12 [facility] Last Admin: 09/10/18 22:35 Dose: 215 mls/hr Insulin Detemir (Levemir) 40 unit SC HS [facility] Last Admin: 09/10/18 22:40 Dose: 40 units Insulin Human Lispro (Humalog Low) 0 units SC ACHS [facility]; Protocol Last Admin: 09/10/18 22:30 Dose: Not Given Insulin Human Lispro (Humalog) 14 units SC AC [facility] Last Admin: 09/10/18 17:46 Dose: 14 unit Lorazepam (Ativan) 1 mg IVP Q1 PRN; Protocol PRN Reason: Seizure activity Losartan Potassium (Cozaar) 50 mg PO DAILY [facility] Last Admin: 03/29/19 09:18 Dose: 50 mg Pantoprazole Sodium (Protonix Ec Tab) 40 mg PO ACB [facility] Last Admin: 09/10/18 09:19 Dose: 40 mg - Labs Labs: 09/10/18 10:30 09/10/18 11:40 PT 11.4 SECONDS (9.4-12.5) 09/10/18 11:40 INR 1.01 09/10/18 11:40 APTT 30.5 Seconds (26.9-38.3) 09/10/18 11:40 - Constitutional Appears: Well, No Acute Distress - Head Exam Head Exam: ATRAUMATIC, NORMAL INSPECTION, NORMOCEPHALIC - Eye Exam Eye Exam: Normal appearance - ENT Exam ENT Exam: Normal Exam - Neck Exam Neck Exam: Normal Inspection - Respiratory Exam Respiratory Exam: NORMAL BREATHING PATTERN - Cardiovascular Exam Cardiovascular Exam: absent: JVD - GI/Abdominal Exam GI & Abdominal Exam: absent: Distended - Rectal Exam Rectal Exam: Deferred - Exam Additional comments: Deferred. - Extremities Exam Extremities Exam: Normal Inspection - Back Exam Back Exam: NORMAL INSPECTION - Neurological Exam Neurological Exam: Alert, Awake, Oriented x3 - Psychiatric Exam Psychiatric exam: Normal Affect, Normal Mood - Skin Skin Exam: Normal Color Assessment and Plan - Assessment and Plan (Free Text) Assessment: Head ache. HTN CHF COPD CVA Bipolar disorder Schizophrenia Lumbar laminectomy and fusion Hx Cholecystectomy. Hx ROXANNE&BSO. Plan: Tylenol 650 mg PO x 1. Continue present management.
--- NOTE | 2018-09-11 04:49 | PN ---
DATE: 09/10/2018 ENDOCRINOLOGY FOLLOWUP NOTE SUBJECTIVE: This is a 63-year-old female with uncontrolled type 2 insulin-requiring diabetes, presenting here with diabetic ketoacidosis and dehydration and has since then improved clinically and metabolically as noted thereof. Her glucose levels today have ranged from 146 to 234 and 286 mg/dL. She has a very high fasting glucose of 375 mg/dL this morning as noted. Her chemistry showed a BUN of 17, sodium 138, potassium 3.4, chloride 105, CO2 of 28, glucose 221 and creatinine 0.7. ASSESSMENT: This is a 63-year-old female with uncontrolled and decompensated type 2 insulin-requiring diabetes, now being followed closely for metabolic management. She received vigorous intravenous hydration and intensive insulin therapy at the Intensive Care Unit prior to the transfer to the regular floor. PLAN OF MANAGEMENT: We will modify her current basal and bolus insulin regimen to optimize metabolic control. We will increase the Humalog to 14 units t.i.d. before meals as ordered. We will also increase the basal insulin with Levemir given as 40 units subcu at bedtime daily as given. We will titrate incrementally as indicated to optimize metabolic control. We will follow and advise accordingly. Polly Carrillo MD
[2018-09-11] MEDS: Insulin Lispro 1 UNITS/0.01 ML SC SCH ×3 (09:56→17:10)
[2018-09-11] MEDS: Insulin Lispro (humaLOG) LOW Coverage SC SCH ×4 (09:57→21:42)
[2018-09-11] MEDS: Pantoprazole 40 mg EC Tab PO SCH (10:04)
--- NOTE | 2018-09-11 10:22 | CP.PCM.PN ---
Subjective - Date & Time of Evaluation Date of Evaluation: 09/11/18 Time of Evaluation: 10:10 - Subjective Subjective: resting comfortably, NAD, awake and responsive Objective - Vital Signs/Intake and Output Vital Signs (last 24 hours): Temp Pulse Resp BP Pulse Ox 97.1 F L 82 20 121/73 97 09/11/18 06:00 09/11/18 10:03 09/11/18 06:00 09/11/18 10:03 09/11/18 06:00 Intake and Output: 09/11/18 09/11/18 06:59 18:59 Intake Total 0 Balance 0 - Medications Medications: Current Medications Atorvastatin Calcium (Lipitor) 20 mg PO DIN [facility] Last Admin: 09/10/18 17:47 Dose: 20 mg Carvedilol (Coreg) 25 mg PO BID [facility] Last Admin: 09/11/18 10:02 Dose: 25 mg Clopidogrel Bisulfate (Plavix) 75 mg PO DAILY [facility] Last Admin: 09/11/18 10:04 Dose: 75 mg Dextrose (Dextrose 50% Inj) 0 ml IV STAT PRN; Protocol PRN Reason: Hypoglycemia Protocol Heparin Sodium (Porcine) (Heparin) 5,000 units SC Q8 [facility]; Protocol Last Admin: 09/11/18 05:32 Dose: 5,000 units Dextrose (Dextrose 5% In Water 1000 Ml) 1,000 mls @ 0 mls/hr IV .Q0M PRN; Protocol PRN Reason: Hypoglycemia Protocol Levetiracetam 750 mg/ Sodium (Chloride) 107.5 mls @ 215 mls/hr IVPB Q12 [facility] Last Admin: 09/11/18 10:03 Dose: 215 mls/hr Insulin Detemir (Levemir) 40 unit SC HS [facility] Last Admin: 09/10/18 22:40 Dose: 40 units Insulin Human Lispro (Humalog Low) 0 units SC ACHS [facility]; Protocol Last Admin: 09/11/18 09:57 Dose: 4 unit Insulin Human Lispro (Humalog) 14 units SC AC [facility] Last Admin: 09/11/18 09:56 Dose: 14 unit Lorazepam (Ativan) 1 mg IVP Q1 PRN; Protocol PRN Reason: Seizure activity Losartan Potassium (Cozaar) 50 mg PO DAILY [facility] Last Admin: 09/11/18 10:03 Dose: 50 mg Pantoprazole Sodium (Protonix Ec Tab) 40 mg PO ACB [facility] Last Admin: 09/11/18 10:04 Dose: 40 mg - Labs Labs: 09/10/18 10:30 09/10/18 11:40 PT 11.4 SECONDS (9.4-12.5) 09/10/18 11:40 INR 1.01 09/10/18 11:40 APTT 30.5 Seconds (26.9-38.3) 09/10/18 11:40 - Respiratory Exam Respiratory Exam: Clear to Ausculation Bilateral, NORMAL BREATHING PATTERN - Cardiovascular Exam Cardiovascular Exam: REGULAR RHYTHM - GI/Abdominal Exam GI & Abdominal Exam: Soft, Normal Bowel Sounds - Extremities Exam Extremities Exam: Normal Inspection - Neurological Exam Neurological Exam: Alert, Awake - Psychiatric Exam Psychiatric exam: Flat Affect - Skin Skin Exam: Dry, Warm Assessment and Plan (1) DKA (diabetic ketoacidoses) Status: Acute (2) Dehydration Status: Acute (3) COPD (chronic obstructive pulmonary disease) Status: Chronic (4) Type I diabetes mellitus Status: Chronic (5) Chronic schizophrenia Status: Chronic (6) Catatonia Status: Acute - Assessment and Plan (Free Text) Plan: pt on IV Keppra for possible SZ per neuro, await EEG, continue monitor glucose levels, endocrine follow-up Dr. Carrillo
[2018-09-11] MEDS: Insulin Detemir 100 units/ml Vial (Levemir) SC SCH (21:40)
[2018-09-12] MEDS: Insulin Lispro 1 UNITS/0.01 ML SC SCH ×3 (08:16→17:05)
[2018-09-12] MEDS: Insulin Lispro (humaLOG) LOW Coverage SC SCH ×4 (08:16→22:00)
[2018-09-12] MEDS: Pantoprazole 40 mg EC Tab PO SCH (08:16)
[2018-09-12] MEDS: Lidocaine 5% Patch TD SCH (09:25)
--- NOTE | 2018-09-12 15:18 | CP.PCM.PN ---
Subjective - Date & Time of Evaluation Date of Evaluation: 09/12/18 Time of Evaluation: 11:10 - Subjective Subjective: resting comfortably, NAD, no SZ activity noted past 24-48 hrs., denies chest pain, no SOB Objective - Vital Signs/Intake and Output Vital Signs (last 24 hours): Temp Pulse Resp BP Pulse Ox 97.6 F 100 H 20 145/71 100 09/12/18 06:00 09/12/18 14:00 09/12/18 06:00 09/12/18 09:26 09/12/18 06:00 Intake and Output: 09/12/18 09/12/18 06:59 18:59 Intake Total 120 Balance 120 - Medications Medications: Current Medications Atorvastatin Calcium (Lipitor) 20 mg PO DIN [facility] Last Admin: 09/11/18 17:13 Dose: 20 mg Carvedilol (Coreg) 25 mg PO BID [facility] Last Admin: 09/12/18 09:25 Dose: 25 mg Clopidogrel Bisulfate (Plavix) 75 mg PO DAILY [facility] Last Admin: 09/12/18 09:25 Dose: 75 mg Dextrose (Dextrose 50% Inj) 0 ml IV STAT PRN; Protocol PRN Reason: Hypoglycemia Protocol Heparin Sodium (Porcine) (Heparin) 5,000 units SC Q8 [facility]; Protocol Last Admin: 09/12/18 13:13 Dose: 5,000 units Dextrose (Dextrose 5% In Water 1000 Ml) 1,000 mls @ 0 mls/hr IV .Q0M PRN; Pr otocol PRN Reason: Hypoglycemia Protocol Levetiracetam 750 mg/ Sodium (Chloride) 107.5 mls @ 215 mls/hr IVPB Q12 [facility] Last Admin: 09/12/18 09:26 Dose: 215 mls/hr Insulin Detemir (Levemir) 44 unit SC HS [facility] Last Admin: 09/11/18 21:40 Dose: 44 units Insulin Human Lispro (Humalog Low) 0 units SC ACHS [facility]; Protocol Last Admin: 09/12/18 11:37 Dose: Not Given Insulin Human Lispro (Humalog) 14 units SC AC [facility] Last Admin: 09/12/18 11:37 Dose: Not Given Lidocaine (Lidoderm) 1 ea TD DAILY [facility] Last Admin: 09/12/18 09:25 Dose: 1 ea Lorazepam (Ativan) 1 mg IVP Q1 [facility]; Protocol PRN Reason: Seizure activity Losartan Potassium (Cozaar) 50 mg PO DAILY [facility] Last Admin: 09/12/18 09:26 Dose: 50 mg Pantoprazole Sodium (Protonix Ec Tab) 40 mg PO ACB [facility] Last Admin: 09/12/18 08:16 Dose: 40 mg - Labs Labs: 09/10/18 10:30 09/10/18 11:40 PT 11.4 SECONDS (9.4-12.5) 09/10/18 11:40 INR 1.01 09/10/18 11:40 APTT 30.5 Seconds (26.9-38.3) 09/10/18 11:40 - Respiratory Exam Respiratory Exam: Clear to Ausculation Bilateral, NORMAL BREATHING PATTERN - Cardiovascular Exam Cardiovascular Exam: REGULAR RHYTHM - GI/Abdominal Exam GI & Abdominal Exam: Soft, Normal Bowel Sounds - Extremities Exam Extremities Exam: Normal Inspection - Neurological Exam Neurological Exam: Alert, Awake - Skin Skin Exam: Dry, Warm Assessment and Plan (1) DKA (diabetic ketoacidoses) Status: Acute (2) Dehydration Status: Acute (3) COPD (chronic obstructive pulmonary disease) Status: Chronic (4) Type I diabetes mellitus Status: Chronic (5) Chronic schizophrenia Status: Chronic (6) Catatonia Status: Acute - Assessment and Plan (Free Text) Plan: continue present treatment, endocrine/neuro follow-up, check labs in am, PT & SW for DC planning
--- NOTE | 2018-09-12 19:09 | PN ---
DATE: 09/12/2018 ENDOCRINOLOGY FOLLOWUP NOTE LOCATION: Room 376. SUBJECTIVE: This is a 63-year-old female, with recent uncontrolled type 2 insulin-requiring diabetes, presenting here with marked hyperglycemic accelerations and diabetic ketoacidosis and dehydration, and since then improved clinically and metabolically as noted thereof. Her oral intake remains quite variable though as per the nursing staff with supervening glycemic fluctuations as noted. Her glucose levels overnight have ranged from 121 to 160 and 289 mg/dL. It was 293 at bedtime last night. Her chemistry showed a BUN of 17, sodium 138, potassium 3.4, chloride 105, CO2 of 28, glucose 221, and creatinine 0.7. So at this time, we will modify once again. ASSESSMENT: This is a 63-year-old female with uncontrolled and decompensated type 2 insulin-requiring diabetes, presenting here with diabetic ketoacidosis and dehydration related to poor adherence to her day-to-day insulin regimen as noted. Her dehydration has already improved as noted and metabolically still has mild hypokalemia as expected. She also has diabetic microvascular complications of retinopathy, polyneuropathy, and early nephropathy as noted with diabetic microvascular complications of cerebrovascular disease with residual left-sided weakness and coronary artery disease and peripheral vasculopathy as noted. PLAN OF MANAGEMENT: We will continue her basal and bolus insulin regimen to allow her dose equilibration, especially with the variability of her oral intake at this time. We will continue the Humalog given as 14 units t.i.d. before meals as ordered. We will continue her Levemir given as 44 units subcutaneous at bedtime daily as given. We will titrate incrementally as indicated to optimize metabolic control. We will reinforce diet education and dietary instructions also at the time of this admission. We will follow and advise accordingly. Polly Carrillo MD
[2018-09-12] MEDS: Insulin Detemir 100 units/ml Vial (Levemir) SC SCH (22:02)
--- NOTE | 2018-09-13 07:08 | CP.PCM.PN ---
Objective - Vital Signs/Intake and Output Vital Signs (last 24 hours): Temp Pulse Resp BP Pulse Ox 97.5 F L 55 L 20 115/71 96 09/13/18 00:00 09/13/18 06:00 09/13/18 00:00 09/13/18 00:00 09/13/18 00:00 - Medications Medications: Current Medications Atorvastatin Calcium (Lipitor) 20 mg PO DIN [facility] Last Admin: 09/12/18 17:06 Dose: 20 mg Carvedilol (Coreg) 25 mg PO BID [facility] Last Admin: 09/12/18 17:05 Dose: 25 mg Clopidogrel Bisulfate (Plavix) 75 mg PO DAILY [facility] Last Admin: 09/12/18 09:25 Dose: 75 mg Dextrose (Dextrose 50% Inj) 0 ml IV STAT PRN; Protocol PRN Reason: Hypoglycemia Protocol Heparin Sodium (Porcine) (Heparin) 5,000 units SC Q8 [facility]; Protocol Last Admin: 09/13/18 05:49 Dose: 5,000 units Dextrose (Dextrose 5% In Water 1000 Ml) 1,000 mls @ 0 mls/hr IV .Q0M PRN; Protocol PRN Reason: Hypoglycemia Protocol Levetiracetam 750 mg/ Sodium (Chloride) 107.5 mls @ 215 mls/hr IVPB Q12 [facility] Last Admin: 09/12/18 22:01 Dose: 215 mls/hr Insulin Detemir (Levemir) 44 unit SC HS [facility] Last Admin: 09/12/18 22:02 Dose: 44 units Insulin Human Lispro (Humalog Low) 0 units SC ACHS [facility]; Protocol Last Admin: 09/12/18 22:00 Dose: Not Given Insulin Human Lispro (Humalog) 14 units SC AC [facility] Last Admin: 09/12/18 17:05 Dose: 14 unit Lidocaine (Lidoderm) 1 ea TD DAILY [facility] Last Admin: 09/12/18 09:25 Dose: 1 ea Lorazepam (Ativan) 1 mg IVP Q1 PRN; Protocol PRN Reason: Seizure activity Losartan Potassium (Cozaar) 50 mg PO DAILY [facility] Last Admin: 09/12/18 09:26 Dose: 50 mg Pantoprazole Sodium (Protonix Ec Tab) 40 mg PO ACB [facility] Last Admin: 09/12/18 08:16 Dose: 40 mg - Labs Labs: 09/10/18 10:30 09/10/18 11:40 PT 11.4 SECONDS (9.4-12.5) 09/10/18 11:40 INR 1.01 09/10/18 11:40 APTT 30.5 Seconds (26.9-38.3) 09/10/18 11:40
[2018-09-13 07:30] LABS: ALB/GLOB RATIO 0.9 (1.1-1.8); ALBUMIN 3.4 g/dL (3.0-4.8); ALT/SGPT 23 U/L (7-56); AST/SGOT 43 U/L (14-36); BLOOD UREA NITROGEN 16 mg/dL (7-21); CALCIUM 9.3 mg/dL (8.4-10.5); GFR NON-AFRICAN AMERICAN > 60
[2018-09-13 07:41] LABS: HEMOGLOBIN 11.1 g/dL (12.0-16.0); MEAN CORPUSCULAR HEMOGLOBIN 29.1 pg (25.0-35.0); MEAN CORPUSCULAR HGB CONC 32.2 g/dl (31.0-37.0); RBC 3.81 10^6/uL (3.5-6.1); RED CELL DISTRIBUTION WIDTH 14.1 % (11.5-14.5)
[2018-09-13 07:48] LABS: MEAN CELL VOLUME 90.6 fl (80.0-105.0)
[2018-09-13] MEDS: Insulin Lispro 1 UNITS/0.01 ML SC SCH ×3 (09:15→17:15)
[2018-09-13] MEDS: Insulin Lispro (humaLOG) LOW Coverage SC SCH ×4 (09:16→21:25)
[2018-09-13] MEDS: Pantoprazole 40 mg EC Tab PO SCH (09:18)
[2018-09-13] MEDS: Lidocaine 5% Patch TD SCH (09:18)
--- NOTE | 2018-09-13 09:25 | PN ---
DATE: 09/11/2018 LOCATION: Room 376. SUBJECTIVE: This is a 63-year-old female with recent uncontrolled type 2 insulin-requiring diabetes presenting here with diabetic ketoacidosis and dehydration and has improved clinically and metabolically as noted thereof. However, her oral intake remains very variable with suboptimal meal portions as noted. Her chemistry showed a BUN of 17, sodium 138, potassium 3.4, chloride 105, CO2 of 28, glucose 221 and creatinine 0.7. Her glucose levels have ranged from 268 to 293 mg/dL. So, at this time, we will continue the modified basal and bolus insulin regimen to allow for dose equilibration and keep her on the Humalog given as 14 units t.i.d. before meals to start today as ordered. We will also modify her basal insulin and increase the Levemir to 44 units subcu at bedtime daily to start tonight. We will titrate incrementally as indicated to optimize metabolic control. We will continue the low-dose correction scale using Humalog insulin as given. We will obtain serial chemistries and supplement accordingly as needed. We will follow. Polly Carrillo MD
--- NOTE | 2018-09-13 16:02 | CP.PCM.PN ---
Subjective - Date & Time of Evaluation Date of Evaluation: 09/13/18 Time of Evaluation: 15:45 - Subjective Subjective: resting comfortably, NAD Objective - Vital Signs/Intake and Output Vital Signs (last 24 hours): Temp Pulse Resp BP Pulse Ox 97.5 F L 73 20 127/68 100 09/13/18 08:41 09/13/18 10:00 09/13/18 08:41 09/13/18 09:15 09/13/18 08:41 - Medications Medications: Current Medications Atorvastatin Calcium (Lipitor) 20 mg PO DIN [facility] Last Admin: 09/12/18 17:06 Dose: 20 mg Carvedilol (Coreg) 25 mg PO BID [facility] Last Admin: 09/13/18 09:14 Dose: 25 mg Clopidogrel Bisulfate (Plavix) 75 mg PO DAILY [facility] Last Admin: 09/13/18 09:18 Dose: 75 mg Dextrose (Dextrose 50% Inj) 0 ml IV STAT PRN; Protocol PRN Reason: Hypoglycemia Protocol Heparin Sodium (Porcine) (Heparin) 5,000 units SC Q8 [facility]; Protocol Last Admin: 09/13/18 13:49 Dose: 5,000 units Dextrose (Dextrose 5% In Water 1000 Ml) 1,000 mls @ 0 mls/hr IV .Q0M PRN; Protocol PRN Reason: Hypoglycemia Protocol Levetiracetam 750 mg/ Sodium (Chloride) 107.5 mls @ 215 mls/hr IVPB Q12 [facility] Last Admin: 09/13/18 09:17 Dose: 215 mls/hr Insulin Detemir (Levemir) 50 unit SC HS [facility] Insulin Human Lispro (Humalog Low) 0 units SC ACHS [facility]; Protocol Last Admin: 09/13/18 13:51 Dose: Not Given Insulin Human Lispro (Humalog) 14 units SC AC [facility] Last Admin: 09/13/18 13:50 Dose: 14 unit Lidocaine (Lidoderm) 1 ea TD DAILY [facility] Last Admin: 09/13/18 09:18 Dose: 1 ea Lorazepam (Ativan) 1 mg IVP Q1 PRN; Protocol PRN Reason: Seizure activity Losartan Potassium (Cozaar) 50 mg PO DAILY [facility] Last Admin: 09/13/18 09:15 Dose: 50 mg Pantoprazole Sodium (Protonix Ec Tab) 40 mg PO ACB [facility] Last Admin: 09/13/18 09:18 Dose: 40 mg - Labs Labs: 09/13/18 06:50 09/13/18 06:50 PT 11.4 SECONDS (9.4-12.5) 09/10/18 11:40 INR 1.01 09/10/18 11:40 APTT 30.5 Seconds (26.9-38.3) 09/10/18 11:40 - Respiratory Exam Respiratory Exam: Clear to Ausculation Bilateral, NORMAL BREATHING PATTERN - Cardiovascular Exam Cardiovascular Exam: REGULAR RHYTHM - GI/Abdominal Exam GI & Abdominal Exam: Soft, Normal Bowel Sounds - Extremities Exam Extremities Exam: Normal Inspection - Neurological Exam Neurological Exam: Alert, Awake - Psychiatric Exam Psychiatric exam: Flat Affect - Skin Skin Exam: Dry, Warm Assessment and Plan (1) DKA (diabetic ketoacidoses) Status: Acute (2) Dehydration Status: Acute (3) COPD (chronic obstructive pulmonary disease) Status: Chronic (4) Type I diabetes mellitus Status: Chronic (5) Chronic schizophrenia Status: Chronic (6) Catatonia Status: Acute - Assessment and Plan (Free Text) Plan: continue monitor glucose levels, neuro consult, consider EEG and DC Rosalba
[2018-09-13] MEDS: Insulin Detemir 100 units/ml Vial (Levemir) SC SCH (21:26)
--- NOTE | 2018-09-14 00:13 | PN ---
DATE: 09/13/2018 ENDOCRINOLOGY FOLLOWUP NOTE LOCATION: Room 376. This is a 63-year-old female with recent uncontrolled type 2 insulin-requiring diabetes, presenting here with diabetic ketoacidosis and dehydration and is now being followed closely for metabolic management. She has since then improved clinically and metabolically as noted thereof. She also received vigorous IV hydration and intensive insulin therapy when she was in the ICU as noted. Her glycemic levels are fluctuating but improved. The glucose levels overnight have ranged from 111 to 258 mg/dL. It was 208 at bedtime last night. Her chemistries today showed a BUN of 16, sodium 140, potassium 5, chloride 103, CO2 of 31, glucose 243 and creatinine 0.8. So at this time, we will modify once again her basal insulin and increase the Levemir to 50 units subcu at bedtime daily to start tonight. We will continue her Humalog given as 14 units subcu t.i.d. before meals as ordered. We will obtain serial chemistries and supplement accordingly as needed. We will follow. Polly Carrillo MD
--- NOTE | 2018-09-14 00:37 | CON ---
DATE: 09/13/2018 HISTORY OF PRESENT ILLNESS: This is a 63-year-old black female with a past medical history of CVA, seizure disorder, hypertension, diabetes, bipolar, schizophrenia was admitted with DKA. CAT scan of the head was done, which was negative. Patient had a seizure-like movement of the right upper extremity, was started with seizure medicine, Keppra. Patient is doing well. PAST MEDICAL HISTORY: As above. SOCIAL HISTORY: Does not smoke, does not drink. PHYSICAL EXAMINATION HEENT: Normocephalic and atraumatic. NECK: Supple. NEUROLOGIC: Now awake. Orientated to self and place. Cranial nerves II through XII were tested. Pupils reactive. EOM intact. Visual hood full. No facial asymmetry. LABORATORY DATA: WBC 5.4, hemoglobin 11.1, hematocrit 33, and platelet 175. Sodium 138, potassium 3.4, chloride 104, CO2 of 28, glucose 221, BUN 17, and creatinine 0.7. Today's blood sugar is 252. IMPRESSION AND PLAN: Possible seizure disorder. Continue Keppra. Workup in progress. Continue present management. We will follow up. Fran Parikh MD
[2018-09-14] MEDS: Insulin Lispro 1 UNITS/0.01 ML SC SCH ×3 (06:39→17:05)
[2018-09-14] MEDS: Insulin Lispro (humaLOG) LOW Coverage SC SCH ×4 (08:09→22:17)
[2018-09-14] MEDS: Pantoprazole 40 mg EC Tab PO SCH (08:10)
[2018-09-14] MEDS: Lidocaine 5% Patch TD SCH (09:37)
--- NOTE | 2018-09-14 14:05 | CP.PCM.PN ---
Subjective - Date & Time of Evaluation Date of Evaluation: 09/14/18 Time of Evaluation: 09:15 - Subjective Subjective: resting comfortably, NAD, denies chest pain, no SOB, glucose levels remain elevated, no SZ activity Objective - Vital Signs/Intake and Output Vital Signs (last 24 hours): Temp Pulse Resp BP Pulse Ox 98.1 F 71 20 115/69 97 09/14/18 08:45 09/14/18 10:00 09/14/18 08:45 09/14/18 09:37 09/14/18 08:45 Intake and Output: 09/14/18 09/14/18 06:59 18:59 Intake Total 540 Output Total 300 Balance 240 - Medications Medications: Current Medications Atorvastatin Calcium (Lipitor) 20 mg PO DIN [facility] Last Admin: 09/13/18 17:16 Dose: 20 mg Carvedilol (Coreg) 25 mg PO BID [facility] Last Admin: 09/14/18 09:37 Dose: 25 mg Clopidogrel Bisulfate (Plavix) 75 mg PO DAILY [facility] Last Admin: 09/14/18 09:37 Dose: 75 mg Dextrose (Dextrose 50% Inj) 0 ml IV STAT PRN; Protocol PRN Reason: Hypoglycemia Protocol Heparin Sodium (Porcine) (Heparin) 5,000 units SC Q8 [facility]; Protocol Last Admin: 09/14/18 05:36 Dose: 5,000 units Dextrose (Dextrose 5% In Water 1000 Ml) 1,000 mls @ 0 mls/hr IV .Q0M PRN; Protocol PRN Reason: Hypoglycemia Protocol Levetiracetam 750 mg/ Sodium (Chloride) 107.5 mls @ 215 mls/hr IVPB Q12 [facility] Last Admin: 09/14/18 09:36 Dose: 215 mls/hr Insulin Detemir (Levemir) 50 unit SC HS [facility] Last Admin: 09/13/18 21:26 Dose: Not Given Insulin Human Lispro (Humalog Low) 0 units SC ACHS [facility]; Protocol Last Admin: 09/14/18 11:54 Dose: Not Given Insulin Human Lispro (Humalog) 14 units SC AC [facility] Last Admin: 09/14/18 12:14 Dose: 14 unit Lidocaine (Lidoderm) 1 ea TD DAILY [facility] Last Admin: 09/14/18 09:37 Dose: 1 ea Lorazepam (Ativan) 1 mg IVP Q1 PRN; Protocol PRN Reason: Seizure activity Losartan Potassium (Cozaar) 50 mg PO DAILY [facility] Last Admin: 09/14/18 09:37 Dose: 50 mg Pantoprazole Sodium (Protonix Ec Tab) 40 mg PO ACB [facility] Last Admin: 09/14/18 08:10 Dose: 40 mg - Labs Labs: 09/13/18 06:50 09/13/18 06:50 PT 11.4 SECONDS (9.4-12.5) 09/10/18 11:40 INR 1.01 09/10/18 11:40 APTT 30.5 Seconds (26.9-38.3) 09/10/18 11:40 - Respiratory Exam Respiratory Exam: Accessory Muscle Use, NORMAL BREATHING PATTERN - Cardiovascular Exam Cardiovascular Exam: REGULAR RHYTHM - GI/Abdominal Exam GI & Abdominal Exam: Soft, Normal Bowel Sounds - Extremities Exam Extremities Exam: Normal Inspection - Neurological Exam Neurological Exam: Alert, Awake - Psychiatric Exam Psychiatric exam: Flat Affect Assessment and Plan (1) DKA (diabetic ketoacidoses) Status: Acute (2) Dehydration Status: Acute (3) COPD (chronic obstructive pulmonary disease) Status: Chronic (4) Type I diabetes mellitus Status: Chronic (5) Chronic schizophrenia Status: Chronic (6) Catatonia Status: Acute - Assessment and Plan (Free Text) Plan: continue endocrine follow-up Dr. Carrillo for glycemic control, neuro consult for poss EEG, evaluate need for continued anti-seizure meds, PT and SW for MIGUEL rose
--- NOTE | 2018-09-14 15:16 | PN ---
DATE: 09/14/2018 ENDOCRINOLOGY FOLLOWUP NOTE LOCATION: In room 376. SUBJECTIVE: This is a 63-year-old female with recent uncontrolled type 2 insulin-requiring diabetes, presenting here with diabetic ketoacidosis and dehydration, and is now being followed closely for metabolic management. Her oral intake has been quite variable as noted thereof. Her glucose levels were actually near optimal yesterday and last night with the bedtime glucose of 117 and a dinnertime glucose of 133 mg/dL. However, the nursing staff once again have withheld and did not give her bedtime basal insulin schedule for Levemir as 50 units subcutaneously at bedtime daily as ordered. So this morning as expected and predictably developed marked hyperglycemic accelerations with glucose levels of 417 and 433 mg/dL. This is so frustrating that we cannot achieve near optimal metabolic control in the hospital since the nurse is constantly hold and withhold and do not give the insulin regimen as scheduled once we achieved near optimal metabolic goals and glucose values otherwise. So the patient goes into a rebound hyperglycemic accelerations and we cover with Humalog insulin and recover with Humalog insulin with supervening hypoglycemic episodes as expected. The nurses do not feel to understand that we need to achieve metabolic goals and near optimal glycemic levels inpatient to also not only achieve optimal goals, but also to prevent microvascular complications with extremes of glycemic fluctuations thereof. ASSESSMENT AND PLAN: So at this time, as discussed with the medical research associate, she will be discussing with the nursing staff regarding the aforementioned and to call me at least prior to holding any kind of insulin regimen to prevent the extremes of glycemic fluctuations as mentioned. We obtain serial chemistries and supplement accordingly as needed. We will follow. Polly Carrillo MD
[2018-09-14] MEDS: Insulin Detemir 100 units/ml Vial (Levemir) SC SCH (22:17)
[2018-09-15 07:01] LABS: ALB/GLOB RATIO 0.9 (1.1-1.8); ALBUMIN 3.2 g/dL (3.0-4.8); ALT/SGPT 28 U/L (7-56); AST/SGOT 31 U/L (14-36); BLOOD UREA NITROGEN 18 mg/dL (7-21); CALCIUM 8.8 mg/dL (8.4-10.5); GFR NON-AFRICAN AMERICAN > 60
[2018-09-15] MEDS: Insulin Lispro 1 UNITS/0.01 ML SC SCH ×3 (07:43→17:40)
[2018-09-15] MEDS: Pantoprazole 40 mg EC Tab PO SCH (07:44)
[2018-09-15] MEDS: Insulin Lispro (humaLOG) LOW Coverage SC SCH ×4 (09:43→22:20)
[2018-09-15] MEDS: Lidocaine 5% Patch TD SCH (09:44)
--- NOTE | 2018-09-15 13:47 | PN ---
DATE: 09/15/2018 ENDOCRINOLOGY FOLLOWUP NOTE LOCATION: Room 377. SUBJECTIVE: This is a 63-year-old female with recent uncontrolled type 2 insulin-requiring diabetes, now being followed closely for metabolic management. Her oral intake, however, has been quite variable, as per the nursing staff with glucose values overnight ranging from 192 to 245 mg/dL. LABORATORY DATA: Her chemistry shows a BUN of 18, sodium 136, potassium 4.7, chloride 99, CO2 29, glucose 231, and creatinine 0.9. ASSESSMENT AND PLAN: So, at this time, we will continue the modified basal and bolus insulin regimen with Humalog given as 14 units three times daily before meals as ordered. We will continue the basal insulin given as Levemir at 50 units subcutaneous at bedtime daily as given. We will obtain serial chemistries and supplement accordingly as needed. We will follow. Polly Carrillo MD
--- NOTE | 2018-09-15 15:43 | CP.PCM.PN ---
Subjective - Date & Time of Evaluation Date of Evaluation: 09/15/18 Time of Evaluation: 12:15 - Subjective Subjective: resting comfortably, NAD Objective - Vital Signs/Intake and Output Vital Signs (last 24 hours): Temp Pulse Resp BP Pulse Ox 98 F 83 20 127/68 97 09/15/18 08:00 09/15/18 09:42 09/15/18 08:00 09/15/18 09:42 09/15/18 08:00 Intake and Output: 09/15/18 09/15/18 06:59 18:59 Intake Total 120 Balance 120 - Medications Medications: Current Medications Atorvastatin Calcium (Lipitor) 20 mg PO DIN [facility] Last Admin: 09/14/18 17:06 Dose: 20 mg Carvedilol (Coreg) 25 mg PO BID [facility] Last Admin: 09/15/18 09:42 Dose: 25 mg Clopidogrel Bisulfate (Plavix) 75 mg PO DAILY [facility] Last Admin: 09/15/18 09:44 Dose: 75 mg Dextrose (Dextrose 50% Inj) 0 ml IV STAT PRN; Protocol PRN Reason: Hypoglycemia Protocol Dextrose (Dextrose 5% In Water 1000 Ml) 1,000 mls @ 0 mls/hr IV .Q0M PRN; Protocol PRN Reason: Hypoglycemia Protocol Levetiracetam 750 mg/ Sodium (Chloride) 107.5 mls @ 215 mls/hr IVPB Q12 [facility] Last Admin: 09/15/18 10:22 Dose: 215 mls/hr Insulin Detemir (Levemir) 50 unit SC HS [facility] Last Admin: 09/14/18 22:17 Dose: 50 unit Insulin Human Lispro (Humalog Low) 0 units SC ACHS [facility]; Protocol Last Admin: 09/15/18 12:30 Dose: 3 unit Insulin Human Lispro (Humalog) 14 units SC AC [facility] Last Admin: 09/15/18 12:30 Dose: 14 unit Lidocaine (Lidoderm) 1 ea TD DAILY [facility] Last Admin: 09/15/18 09:44 Dose: 1 ea Lorazepam (Ativan) 1 mg IVP Q1 [facility]; Protocol PRN Reason: Seizure activity Losartan Potassium (Cozaar) 50 mg PO DAILY [facility] Last Admin: 09/15/18 09:42 Dose: 50 mg Pantoprazole Sodium (Protonix Ec Tab) 40 mg PO ACB [facility] Last Admin: 09/15/18 07:44 Dose: 40 mg - Labs Labs: 09/13/18 06:50 09/15/18 05:01 PT 11.4 SECONDS (9.4-12.5) 09/10/18 11:40 INR 1.01 09/10/18 11:40 APTT 30.5 Seconds (26.9-38.3) 09/10/18 11:40 - Respiratory Exam Respiratory Exam: Clear to Ausculation Bilateral, NORMAL BREATHING PATTERN - Cardiovascular Exam Cardiovascular Exam: REGULAR RHYTHM - GI/Abdominal Exam GI & Abdominal Exam: Soft, Normal Bowel Sounds - Back Exam Back Exam: NORMAL INSPECTION - Neurological Exam Neurological Exam: Alert, Awake - Psychiatric Exam Psychiatric exam: Flat Affect - Skin Skin Exam: Dry, Warm Assessment and Plan (1) DKA (diabetic ketoacidoses) Status: Acute (2) Dehydration Status: Acute (3) COPD (chronic obstructive pulmonary disease) Status: Chronic (4) Type I diabetes mellitus Status: Chronic (5) Chronic schizophrenia Status: Chronic (6) Catatonia Status: Acute - Assessment and Plan (Free Text) Plan: continue present care, endocrine follow-up Dr. Carrillo for glycemic control, neuro work-up Dr. Parikh
[2018-09-15] MEDS: Insulin Detemir 100 units/ml Vial (Levemir) SC SCH (22:21)
[2018-09-16] MEDS: Insulin Lispro 1 UNITS/0.01 ML SC SCH ×3 (09:22→17:18)
[2018-09-16] MEDS: Insulin Lispro (humaLOG) LOW Coverage SC SCH ×4 (09:23→22:06)
[2018-09-16] MEDS: Lidocaine 5% Patch TD SCH (09:25)
[2018-09-16] MEDS: Pantoprazole 40 mg EC Tab PO SCH (09:26)
--- NOTE | 2018-09-16 09:50 | CP.PCM.PN ---
Subjective - Date & Time of Evaluation Date of Evaluation: 09/16/18 Time of Evaluation: 09:30 - Subjective Subjective: resting comfortably, NAD Objective - Vital Signs/Intake and Output Vital Signs (last 24 hours): Temp Pulse Resp BP Pulse Ox 97.2 F L 73 20 110/60 96 09/16/18 08:54 09/16/18 09:22 09/16/18 08:54 09/16/18 09:22 09/16/18 08:54 Intake and Output: 09/16/18 09/16/18 06:59 18:59 Intake Total 1600 Output Total 1300 Balance 300 - Medications Medications: Current Medications Atorvastatin Calcium (Lipitor) 20 mg PO DIN [facility] Last Admin: 09/15/18 17:41 Dose: 20 mg Carvedilol (Coreg) 25 mg PO BID [facility] Last Admin: 09/16/18 09:21 Dose: 25 mg Clopidogrel Bisulfate (Plavix) 75 mg PO DAILY [facility] Last Admin: 09/16/18 09:26 Dose: 75 mg Dextrose (Dextrose 50% Inj) 0 ml IV STAT PRN; Protocol PRN Reason: Hypoglycemia Protocol Dextrose (Dextrose 5% In Water 1000 Ml) 1,000 mls @ 0 mls/hr IV .Q0M PRN; Protocol PRN Reason: Hypoglycemia Protocol Levetiracetam 750 mg/ Sodium (Chloride) 107.5 mls @ 215 mls/hr IVPB Q12 [facility] Last Admin: 09/16/18 09:23 Dose: 215 mls/hr Insulin Detemir (Levemir) 50 unit SC HS [facility] Last Admin: 09/15/18 22:21 Dose: 50 units Insulin Human Lispro (Humalog Low) 0 units SC ACHS [facility]; Protocol Last Admin: 09/16/18 09:23 Dose: 1 unit Insulin Human Lispro (Humalog) 14 units SC AC [facility] Last Admin: 09/16/18 09:22 Dose: 14 unit Lidocaine (Lidoderm) 1 ea TD DAILY [facility] Last Admin: 09/16/18 09:25 Dose: 1 ea Lorazepam (Ativan) 1 mg IVP Q1 [facility]; Protocol PRN Reason: Seizure activity Losartan Potassium (Cozaar) 50 mg PO DAILY [facility] Last Admin: 09/16/18 09:22 Dose: 50 mg Pantoprazole Sodium (Protonix Ec Tab) 40 mg PO ACB [facility] Last Admin: 09/16/18 09:26 Dose: 40 mg - Labs Labs: 09/13/18 06:50 09/15/18 05:01 PT 11.4 SECONDS (9.4-12.5) 09/10/18 11:40 INR 1.01 09/10/18 11:40 APTT 30.5 Seconds (26.9-38.3) 09/10/18 11:40 - Respiratory Exam Respiratory Exam: Clear to Ausculation Bilateral, NORMAL BREATHING PATTERN - Cardiovascular Exam Cardiovascular Exam: REGULAR RHYTHM - GI/Abdominal Exam GI & Abdominal Exam: Soft, Normal Bowel Sounds - Extremities Exam Extremities Exam: Normal Inspection - Neurological Exam Neurological Exam: Alert, Awake - Skin Skin Exam: Dry, Warm Assessment and Plan (1) DKA (diabetic ketoacidoses) Status: Acute (2) Dehydration Status: Acute (3) COPD (chronic obstructive pulmonary disease) Status: Chronic (4) Type I diabetes mellitus Status: Chronic (5) Chronic schizophrenia Status: Chronic (6) Catatonia Status: Acute - Assessment and Plan (Free Text) Plan: continue present rx, neuro/endocrine f/u, PT & SW for DC planning
--- NOTE | 2018-09-16 10:49 | CP.PCM.PCO ---
Physician Communication Note - Physician Communication Note Physician Communication Note: c/w keppra and diabetic control, f/u in office.
--- NOTE | 2018-09-16 15:28 | PN ---
DATE: 09/16/2018 ENDO FOLLOWUP NOTE LOCATION: Room 377. SUBJECTIVE: This is a 63-year-old female with recent uncontrolled type 2 insulin-requiring diabetes presenting here with diabetic ketoacidosis and dehydration and has since then improved clinically and metabolically as noted thereof. Her glucose values are fluctuating with the variability of her oral intake as noted. Her glucose levels overnight have ranged from 156-173 and 250 mg/dL. It was 297 at bedtime last night. Her chemistry showed a BUN of 18, sodium 136, potassium 4.7, chloride 99, CO2 of 29, glucose 231 and creatinine 0.9. So at this time, we will continue the same basal and bolus insulin regimen, especially with the variability of her oral intake as noted. We will continue the Humalog given as 14 units t.i.d. before meals as ordered. We will also continue the basal insulin given as Levemir at 50 units subcutaneous at bedtime daily . We will obtain serial chemistries and supplement accordingly as needed. We will follow and advise accordingly. Polly Carrillo MD
[2018-09-16] MEDS: Insulin Detemir 100 units/ml Vial (Levemir) SC SCH (22:18)
[2018-09-17 08:08] LABS: ALB/GLOB RATIO 0.9 (1.1-1.8); ALBUMIN 3.4 g/dL (3.0-4.8); ALT/SGPT 29 U/L (7-56); AST/SGOT 29 U/L (14-36); BLOOD UREA NITROGEN 21 mg/dL (7-21); CALCIUM 8.6 mg/dL (8.4-10.5); GFR NON-AFRICAN AMERICAN > 60
[2018-09-17] MEDS: Insulin Lispro 1 UNITS/0.01 ML SC SCH ×3 (08:34→17:07)
[2018-09-17] MEDS: Insulin Lispro (humaLOG) LOW Coverage SC SCH ×3 (08:34→17:07)
[2018-09-17] MEDS: Lidocaine 5% Patch TD SCH (09:52)
[2018-09-17] MEDS: Pantoprazole 40 mg EC Tab PO SCH (09:53)
--- NOTE | 2018-09-17 11:28 | CP.PCM.PN ---
Subjective - Date & Time of Evaluation Date of Evaluation: 09/17/18 Time of Evaluation: 11:15 - Subjective Subjective: resting comfortably, NAD, no SZ activity past few days Objective - Vital Signs/Intake and Output Vital Signs (last 24 hours): Temp Pulse Resp BP Pulse Ox 98.2 F 74 18 128/74 96 09/17/18 06:00 09/17/18 09:52 09/17/18 06:00 09/17/18 09:52 09/17/18 06:00 Intake and Output: 09/17/18 09/17/18 06:59 18:59 Intake Total 1500 Output Total 1700 Balance -200 - Medications Medications: Current Medications Atorvastatin Calcium (Lipitor) 20 mg PO DIN [facility] Last Admin: 09/16/18 17:30 Dose: 20 mg Carvedilol (Coreg) 25 mg PO BID [facility] Last Admin: 09/17/18 09:51 Dose: 25 mg Clopidogrel Bisulfate (Plavix) 75 mg PO DAILY [facility] Last Admin: 09/17/18 09:53 Dose: 75 mg Dextrose (Dextrose 50% Inj) 0 ml IV STAT PRN; Protocol PRN Reason: Hypoglycemia Protocol Dextrose (Dextrose 5% In Water 1000 Ml) 1,000 mls @ 0 mls/hr IV .Q0M PRN; Protocol PRN Reason: Hypoglycemia Protocol Insulin Detemir (Levemir) 50 unit SC HS [facility] Last Admin: 09/16/18 22:18 Dose: 50 units Insulin Human Lispro (Humalog Low) 0 units SC ACHS [facility]; Protocol Last Admin: 09/17/18 08:34 Dose: 2 unit Insulin Human Lispro (Humalog) 14 units SC AC [facility] Last Admin: 09/17/18 08:34 Dose: 14 unit Levetiracetam (Keppra) 500 mg PO BID [facility] Lidocaine (Lidoderm) 1 ea TD DAILY [facility] Last Admin: 09/17/18 09:52 Dose: 1 ea Lorazepam (Ativan) 1 mg IVP Q1 PRN; Protocol PRN Reason: Seizure activity Losartan Potassium (Cozaar) 50 mg PO DAILY [facility] Last Admin: 09/17/18 09:52 Dose: 50 mg Pantoprazole Sodium (Protonix Ec Tab) 40 mg PO ACB [facility] Last Admin: 09/17/18 09:53 Dose: 40 mg - Labs Labs: 09/13/18 06:50 09/17/18 07:15 PT 11.4 SECONDS (9.4-12.5) 09/10/18 11:40 INR 1.01 09/10/18 11:40 APTT 30.5 Seconds (26.9-38.3) 09/10/18 11:40 - Cardiovascular Exam Cardiovascular Exam: REGULAR RHYTHM - GI/Abdominal Exam GI & Abdominal Exam: Soft, Normal Bowel Sounds - Extremities Exam Extremities Exam: Normal Inspection - Neurological Exam Neurological Exam: Alert, Awake - Skin Skin Exam: Dry, Warm Assessment and Plan (1) DKA (diabetic ketoacidoses) Status: Acute (2) Dehydration Status: Acute (3) COPD (chronic obstructive pulmonary disease) Status: Chronic (4) Type I diabetes mellitus Status: Chronic (5) Chronic schizophrenia Status: Chronic (6) Catatonia Status: Acute - Assessment and Plan (Free Text) Plan: DC IV Keppra, change to PO, SW for DC planning
--- NOTE | 2018-09-17 16:03 | PN ---
DATE: 09/17/2018 ENDOCRINOLOGY FOLLOWUP LOCATION: Room 377. SUBJECTIVE: This is a 63-year-old female with recent uncontrolled type 2 insulin-requiring diabetes presenting here with diabetic ketoacidosis and dehydration and is now being followed closely for metabolic management. Her glycemic levels are fluctuating but improved and also her oral intake remains variable as per the nursing staff. Her glucose levels today have ranged from mg/dL. It was 148 at bedtime last night and 331 at 02:00 a.m. this morning as they actually held once again her bedtime insulin regimen as prescribed. So at this time, we will once again continue the same basal and bolus insulin regimen to allow for full dose equilibration and continue her Humalog given as 12 units t.i.d. before meals as ordered. We will continue her Levemir given as 24 units subcutaneously at bedtime daily as given. We will titrate incrementally as indicated to optimize metabolic control. We will continue the low-dose correction scale using Humalog insulin as given. We will follow. Polly Carrillo MD
[2018-09-17] MEDS: Insulin Detemir 100 units/ml Vial (Levemir) SC SCH (22:11)
[2018-09-18] MEDS: Insulin Lispro (humaLOG) LOW Coverage SC SCH ×4 (08:22→21:12)
[2018-09-18] MEDS: Pantoprazole 40 mg EC Tab PO SCH (08:22)
[2018-09-18] MEDS: Insulin Lispro 1 UNITS/0.01 ML SC SCH ×3 (08:26→18:08)
--- NOTE | 2018-09-18 09:37 | CP.PCM.PN ---
Subjective - Date & Time of Evaluation Date of Evaluation: 09/18/18 Time of Evaluation: 09:20 - Subjective Subjective: resting comfortably, NAD Objective - Vital Signs/Intake and Output Vital Signs (last 24 hours): Temp Pulse Resp BP Pulse Ox 98.1 F 70 20 132/78 97 09/18/18 08:31 09/18/18 08:31 09/18/18 08:31 09/18/18 08:31 09/18/18 08:31 Intake and Output: 09/18/18 09/18/18 06:59 18:59 Intake Total 2460 Output Total 2900 Balance -440 - Medications Medications: Current Medications Atorvastatin Calcium (Lipitor) 20 mg PO DIN [facility] Last Admin: 09/17/18 17:09 Dose: 20 mg Carvedilol (Coreg) 25 mg PO BID [facility] Last Admin: 09/17/18 17:06 Dose: 25 mg Clopidogrel Bisulfate (Plavix) 75 mg PO DAILY [facility] Last Admin: 09/17/18 09:53 Dose: 75 mg Dextrose (Dextrose 50% Inj) 0 ml IV STAT PRN; Protocol PRN Reason: Hypoglycemia Protocol Dextrose (Dextrose 5% In Water 1000 Ml) 1,000 mls @ 0 mls/hr IV .Q0M PRN; Protocol PRN Reason: Hypoglycemia Protocol Insulin Detemir (Levemir) 50 unit SC HS [facility] Last Admin: 09/17/18 22:11 Dose: 50 units Insulin Human Lispro (Humalog Low) 0 units SC ACHS [facility]; Protocol Last Admin: 09/18/18 08:22 Dose: 2 unit Insulin Human Lispro (Humalog) 14 units SC AC [facility] Last Admin: 09/18/18 08:26 Dose: 14 unit Levetiracetam (Keppra) 500 mg PO BID [facility] Last Admin: 09/17/18 17:08 Dose: 500 mg Lidocaine (Lidoderm) 1 ea TD DAILY [facility] Last Admin: 09/17/18 09:52 Dose: 1 ea Lorazepam (Ativan) 1 mg IVP Q1 PRN; Protocol PRN Reason: Seizure activity Losartan Potassium (Cozaar) 50 mg PO DAILY [facility] Last Admin: 09/17/18 09:52 Dose: 50 mg Pantoprazole Sodium (Protonix Ec Tab) 40 mg PO ACB [facility] Last Admin: 09/18/18 08:22 Dose: 40 mg - Labs Labs: 09/13/18 06:50 09/17/18 07:15 PT 11.4 SECONDS (9.4-12.5) 09/10/18 11:40 INR 1.01 09/10/18 11:40 APTT 30.5 Seconds (26.9-38.3) 09/10/18 11:40 - Respiratory Exam Respiratory Exam: Clear to Ausculation Bilateral, NORMAL BREATHING PATTERN - Cardiovascular Exam Cardiovascular Exam: REGULAR RHYTHM - GI/Abdominal Exam GI & Abdominal Exam: Soft, Normal Bowel Sounds - Back Exam Back Exam: NORMAL INSPECTION - Neurological Exam Neurological Exam: Alert, Awake - Psychiatric Exam Psychiatric exam: Flat Affect - Skin Skin Exam: Dry, Warm Assessment and Plan (1) DKA (diabetic ketoacidoses) Status: Acute (2) Dehydration Status: Acute (3) COPD (chronic obstructive pulmonary disease) Status: Chronic (4) Type I diabetes mellitus Status: Chronic (5) Chronic schizophrenia Status: Chronic (6) Catatonia Status: Acute - Assessment and Plan (Free Text) Plan: continue present rx, no SZ activity past few days, PT & SW for DC planning
[2018-09-18] MEDS: Lidocaine 5% Patch TD SCH (10:31)
--- NOTE | 2018-09-18 14:49 | PN ---
DATE: 09/18/2018 ENDO FOLLOWUP NOTE LOCATION: Room 377. SUBJECTIVE: This is a 63-year-old female with recent uncontrolled type II, insulin requiring diabetes now being followed closely from metabolic management. Once again, her oral intake is quite variable with some optimal meal portions as noted. Her glycemic levels are fluctuating, but improved overnight with glucose levels ranging from 132 to 202 and 337 mg/dL. Her chemistries showed the BUN of 21, sodium 138, potassium 4.5, chloride 101, CO2 of 27, glucose 246 and creatinine 0.9. So at this time, we will continue the modified basal and bolus insulin regimen to allow for full dose equilibration and keep her on the Humalog given as 14 units t.i.d. before meals as ordered. We will also continue her basal insulin given as Levemir at 50 units subcutaneous at bedtime daily as given. We will titrate incrementally as indicated to optimize metabolic control. We will follow and advise accordingly. Polly Carrillo MD
[2018-09-18] MEDS: Insulin Detemir 100 units/ml Vial (Levemir) SC SCH (21:51)
[2018-09-19] MEDS: Insulin Lispro 1 UNITS/0.01 ML SC SCH ×3 (10:30→17:30)
[2018-09-19] MEDS: Pantoprazole 40 mg EC Tab PO SCH (10:30)
[2018-09-19] MEDS: Lidocaine 5% Patch TD SCH (10:31)
[2018-09-19] MEDS: Insulin Lispro (humaLOG) LOW Coverage SC SCH ×4 (10:31→21:36)
--- NOTE | 2018-09-19 12:23 | CP.PCM.PN ---
Subjective - Date & Time of Evaluation Date of Evaluation: 09/19/18 Time of Evaluation: 11:25 - Subjective Subjective: resting comfortably, NAD, denies chest pain, no SOB Objective - Vital Signs/Intake and Output Vital Signs (last 24 hours): Temp Pulse Resp BP Pulse Ox 98.1 F 72 20 128/76 95 09/19/18 08:26 09/19/18 10:29 09/19/18 08:26 09/19/18 10:29 09/19/18 08:26 Intake and Output: 09/19/18 09/19/18 06:59 18:59 Intake Total 2270 Output Total 1950 Balance 320 - Medications Medications: Current Medications Atorvastatin Calcium (Lipitor) 20 mg PO DIN [facility] Last Admin: 09/18/18 18:08 Dose: 20 mg Carvedilol (Coreg) 25 mg PO BID [facility] Last Admin: 09/19/18 10:28 Dose: 25 mg Clopidogrel Bisulfate (Plavix) 75 mg PO DAILY [facility] Last Admin: 09/19/18 10:28 Dose: 75 mg Dextrose (Dextrose 50% Inj) 0 ml IV STAT PRN; Protocol PRN Reason: Hypoglycemia Protocol Dextrose (Dextrose 5% In Water 1000 Ml) 1,000 mls @ 0 mls/hr IV .Q0M PRN; Protocol PRN Reason: Hypoglycemia Protocol Insulin Detemir (Levemir) 50 unit SC HS [facility] Last Admin: 09/18/18 21:51 Dose: 50 units Insulin Human Lispro (Humalog Low) 0 units SC ACHS [facility]; Protocol Last Admin: 09/19/18 10:31 Dose: 1 unit Insulin Human Lispro (Humalog) 14 units SC AC [facility] Last Admin: 09/19/18 10:30 Dose: 14 unit Levetiracetam (Keppra) 500 mg PO BID [facility] Last Admin: 09/19/18 10:30 Dose: 500 mg Lidocaine (Lidoderm) 1 ea TD DAILY [facility] Last Admin: 09/19/18 10:31 Dose: 1 ea Lorazepam (Ativan) 1 mg IVP Q1 PRN; Protocol PRN Reason: Seizure activity Losartan Potassium (Cozaar) 50 mg PO DAILY [facility] Last Admin: 09/19/18 10:29 Dose: 50 mg Pantoprazole Sodium (Protonix Ec Tab) 40 mg PO ACB [facility] Last Admin: 09/19/18 10:30 Dose: 40 mg - Labs Labs: 09/13/18 06:50 09/17/18 07:15 PT 11.4 SECONDS (9.4-12.5) 09/10/18 11:40 INR 1.01 09/10/18 11:40 APTT 30.5 Seconds (26.9-38.3) 09/10/18 11:40 - Respiratory Exam Respiratory Exam: Clear to Ausculation Bilateral, NORMAL BREATHING PATTERN - Cardiovascular Exam Cardiovascular Exam: REGULAR RHYTHM - GI/Abdominal Exam GI & Abdominal Exam: Soft, Normal Bowel Sounds - Extremities Exam Extremities Exam: Normal Inspection - Neurological Exam Neurological Exam: Alert, Awake - Psychiatric Exam Psychiatric exam: Flat Affect - Skin Skin Exam: Dry, Warm Assessment and Plan (1) DKA (diabetic ketoacidoses) Status: Acute (2) Dehydration Status: Acute (3) COPD (chronic obstructive pulmonary disease) Status: Chronic (4) Type I diabetes mellitus Status: Chronic (5) Chronic schizophrenia Status: Chronic (6) Catatonia Status: Acute - Assessment and Plan (Free Text) Plan: continue monitor glucose levels, PT & SW for DC planning
--- NOTE | 2018-09-19 20:59 | PN ---
DATE: 09/19/2018 LOCATION: Room 377. SUBJECTIVE: This is a 63-year-old female with recent uncontrolled type 2 insulin-requiring diabetes, now being followed closely for metabolic management. His oral intake continues to be quite variable at this time as per the nursing staff with expected glycemic fluctuations as noted thereof. His glucose levels overnight have ranged from 184 to 236 mg/dL. Her bedtime glucose was 255 mg/dL. Her chemistry showed a BUN of 21, sodium 138, potassium 4.5, chloride 101, CO2 of 27, glucose 246 and creatinine 0.9. ASSESSMENT: This is a 63-year-old female with uncontrolled and decompensated type 2 insulin-requiring diabetes, presenting here with diabetic ketoacidosis and dehydration and has since then improved clinically and metabolically as noted thereof. She received vigorous intravenous hydration and intensive insulin therapy in the intensive care unit as given. PLAN OF MANAGEMENT: We will modify once again her basal and bolus insulin regimen and increase the Levemir to 50 units subcu at bedtime daily to start today. We will continue the Humalog given as 14 units t.i.d. before meals as ordered, especially with the variability of her oral intake as noted. We will obtain serial chemistries and supplement accordingly as needed. We will follow. Polly Carrillo MD
[2018-09-19] MEDS: Insulin Detemir 100 units/ml Vial (Levemir) SC SCH (22:39)
[2018-09-20 07:52] VITALS: BP 113/61; PULSE 74; RESP 20; TEMP 97.9; O2SAT 96
[2018-09-20] MEDS: Insulin Lispro (humaLOG) LOW Coverage SC SCH ×2 (07:57→12:14)
[2018-09-20] MEDS: Insulin Lispro 1 UNITS/0.01 ML SC SCH ×2 (08:46→12:13)
[2018-09-20] MEDS: Pantoprazole 40 mg EC Tab PO SCH (08:46)
[2018-09-20] MEDS: Lidocaine 5% Patch TD SCH (10:15)
--- NOTE | 2018-09-20 11:33 | CP.PCM.PN ---
Subjective - Date & Time of Evaluation Date of Evaluation: 09/20/18 Time of Evaluation: 09:30 - Subjective Subjective: resting comfortably, NAD Objective - Vital Signs/Intake and Output Vital Signs (last 24 hours): Temp Pulse Resp BP Pulse Ox 97.9 F 74 20 113/61 96 09/20/18 07:51 09/20/18 10:11 09/20/18 07:51 09/20/18 10:11 09/20/18 07:51 Intake and Output: 09/20/18 09/20/18 06:59 18:59 Intake Total 1920 Output Total 1900 Balance 20 - Medications Medications: Current Medications Atorvastatin Calcium (Lipitor) 20 mg PO DIN [facility] Last Admin: 09/19/18 17:34 Dose: 20 mg Carvedilol (Coreg) 25 mg PO BID [facility] Last Admin: 09/20/18 10:11 Dose: 25 mg Clopidogrel Bisulfate (Plavix) 75 mg PO DAILY [facility] Last Admin: 09/20/18 10:11 Dose: 75 mg Dextrose (Dextrose 50% Inj) 0 ml IV STAT PRN; Protocol PRN Reason: Hypoglycemia Protocol Dextrose (Dextrose 5% In Water 1000 Ml) 1,000 mls @ 0 mls/hr IV .Q0M PRN; Protocol PRN Reason: Hypoglycemia Protocol Insulin Detemir (Levemir) 50 unit SC HS [facility] Last Admin: 09/19/18 22:39 Dose: 50 units Insulin Human Lispro (Humalog Low) 0 units SC ACHS [facility]; Protocol Last Admin: 09/20/18 07:57 Dose: Not Given Insulin Human Lispro (Humalog) 14 units SC AC [facility] Last Admin: 09/20/18 08:46 Dose: Not Given Levetiracetam (Keppra) 500 mg PO BID [facility] Last Admin: 09/20/18 10:11 Dose: 500 mg Lidocaine (Lidoderm) 1 ea TD DAILY [facility] Last Admin: 09/20/18 10:15 Dose: 1 ea Lorazepam (Ativan) 1 mg IVP Q1 PRN; Protocol PRN Reason: Seizure activity Losartan Potassium (Cozaar) 50 mg PO DAILY [facility] Last Admin: 09/20/18 10:11 Dose: 50 mg Pantoprazole Sodium (Protonix Ec Tab) 40 mg PO ACB [facility] Last Admin: 09/20/18 08:46 Dose: 40 mg - Labs Labs: 09/13/18 06:50 09/17/18 07:15 PT 11.4 SECONDS (9.4-12.5) 09/10/18 11:40 INR 1.01 09/10/18 11:40 APTT 30.5 Seconds (26.9-38.3) 09/10/18 11:40 - Respiratory Exam Respiratory Exam: Clear to Ausculation Bilateral, NORMAL BREATHING PATTERN - Cardiovascular Exam Cardiovascular Exam: REGULAR RHYTHM - GI/Abdominal Exam GI & Abdominal Exam: Soft, Normal Bowel Sounds - Extremities Exam Extremities Exam: Normal Inspection - Neurological Exam Neurological Exam: Alert, Awake - Psychiatric Exam Psychiatric exam: Flat Affect - Skin Skin Exam: Dry, Warm Assessment and Plan (1) DKA (diabetic ketoacidoses) Status: Acute (2) Dehydration Status: Acute (3) COPD (chronic obstructive pulmonary disease) Status: Chronic (4) Type I diabetes mellitus Status: Chronic (5) Chronic schizophrenia Status: Chronic (6) Catatonia Status: Acute - Assessment and Plan (Free Text) Plan: for DC planning
--- NOTE | 2018-09-20 20:38 | PN ---
DATE: 09/20/2018 ENDOCRINOLOGY FOLLOWUP NOTE LOCATION: Room 377. SUBJECTIVE: This is a 63-year-old female with recent uncontrolled type 2 insulin-requiring diabetes, presenting here with diabetic ketoacidosis and dehydration and is now being followed closely for metabolic management. Her glycemic levels are fluctuating with the variability of her oral intake as noted and today's glucose levels have ranged from 89-204 and 253 mg/dL. It was 369 at bedtime last night and 101 at dinnertime as noted. LABORATORY DATA: Her chemistry showed a BUN of 21, sodium 138, potassium 4.5, chloride 101, CO2 of 27, glucose 246 and creatinine 0.9. ASSESSMENT: This is a 63-year-old female with uncontrolled and decompensated type 2 insulin-requiring diabetes, presenting here with diabetic ketoacidosis and dehydration and has since then improved clinically and metabolically as noted thereof. PLAN OF MANAGEMENT: The patient received vigorous IV hydration and intensive insulin therapy in the ICU as noted with remarkable metabolic response thereof. However, her oral intake remains quite variable as per nursing staff with extremes of glycemic fluctuations as noted thereof. So at this time we will continue the same basal and bolus insulin regimen to allow for dose equilibration and keep her on the Humalog given as 14 units t.i.d. before meals as ordered. We will continue the low-dose correction scale using Humalog insulin to obviate hypoglycemia and detailed orders are in place. We will also continue the basal insulin given as Levemir at 50 units subcutaneous at bedtime daily as given. We will obtain serial chemistries and supplement accordingly as needed. We will follow. Polly Carrillo MD
--- NOTE | 2018-09-21 22:03 | DS ---
HOSPITAL COURSE: The patient is a 63-year-old female admitted through the emergency department with diabetic ketoacidosis. The patient has a history of type 1 diabetes mellitus. She was seen in consultation by Endocrinology, Dr. Polly Carrillo and was started on IV hydration as well as insulin. The patient's hospital course was complicated by an episode of non-responsiveness on 09/10/2018, which was presumed secondary to seizures and the patient was empirically started on Keppra 500 mg twice daily. The patient remained seizures free and was discharged to home in stable condition on 08/20/2018. PHYSICAL EXAMINATION: Vital signs are as per the progress note of 08/20/2018. DISCHARGE MEDICATIONS: The patient was discharged on the following medications; Keppra 500 mg twice daily, Humalog 14 units subcutaneous a.c., Levemir 50 units subcutaneous at bedtime, Coreg 25 mg twice daily, Plavix 75 mg daily, Cozaar 50 mg daily and Protonix 40 mg daily. IMPRESSION 1. Recurrent diabetic ketoacidosis. 2. Type 1 diabetes mellitus. 3. Hypertension, hypertensive cardiovascular disease, history of congestive heart failure. 4. Chronic obstructive pulmonary disease. 5. Bipolar disorder and chronic schizophrenia. 6. Seizure disorder versus episodic catatonia secondary to schizophrenia. PLAN: The patient will be followed up as an outpatient within the next 1 to 2 weeks. She will be maintained on a consistent carbohydrate diet. Activity is ad libitum. CLAIR Hay MD
== END 2018-09-20 18:09 | disposition home health service (06) | DRG 638 ==
LOC: ED 18:04 → ERH 20:15 → CCU 21:51 → 3RSO 09-07 15:47 → CCU 09-10 11:20 → 3RSO 09-10 16:50
PROVIDERS: ADMIT Internal Medicine; ATTEND Internal Medicine
DX: E11.10 Type 2 diabetes mellitus with ketoacidosis without coma (principal); E87.1 Hypo-osmolality and hyponatremia; F20.2 Catatonic schizophrenia; I69.954 Hemiplegia and hemiparesis following unspecified cerebrovascular disease affecting left non-dominant side; E86.0 Dehydration; E87.5 Hyperkalemia; I50.9 Heart failure, unspecified; I11.0 Hypertensive heart disease with heart failure; E11.21 Type 2 diabetes mellitus with diabetic nephropathy; E11.319 Type 2 diabetes mellitus with unspecified diabetic retinopathy without macular edema; E11.51 Type 2 diabetes mellitus with diabetic peripheral angiopathy without gangrene; I25.10 Atherosclerotic heart disease of native coronary artery without angina pectoris; J44.9 Chronic obstructive pulmonary disease, unspecified; E78.5 Hyperlipidemia, unspecified; F03.90 Unspecified dementia, unspecified severity, without behavioral disturbance, psychotic disturbance, mood disturbance, and anxiety; F31.9 Bipolar disorder, unspecified; H54.8 Legal blindness, as defined in USA; R29.810 Facial weakness; G40.909 Epilepsy, unspecified, not intractable, without status epilepticus; Z79.4 Long term (current) use of insulin; Z91.14 Patient's other noncompliance with medication regimen; Z79.1 Long term (current) use of non-steroidal anti-inflammatories (NSAID)